=== PATIENT | male | born 1935 | race Caucasian/White ===

== ENCOUNTER → 2018-01-04 07:37 | Outpatient (CLI) | payer MEDICARE, SELFPAY ==
[2017-11-01 22:44] VITALS: BP 202/86; BP 206/90; BP 206/91
[2017-11-03 05:56] VITALS: BP 170/76
[2017-12-30 13:07] VITALS: BP 140/64; BMI 29.1
[2018-01-04 10:39] LABS: Absolute Neutrophil Count 3.7 X10^3/uL (2.0-7.7); Basophil# 0.05 X10^3/uL; Basophil% 0.9 % (0-1); Eosinophil# 0.14 X10^3/uL; Eosinophils% 2.6 % (0-5); Hematocrit 34.6 % (40-54); Hemoglobin 10.5 g/dl (13.0-16.5); Lymphocyte % 16.7 % (19-41); Mean Corp Hgb Conc 30.3 g/gl (32-36); Mean Corpuscular Hgb 25.3 pg (27.0-32.0); Mean Corpuscular Volume 83.4 fL (80-94); Mean Platelet Vol. 9.6 fl (6.2-12.0); Monocyte# 0.55 X10^3/uL; Monocyte% 10.2 % (0-10); Neutrophil # 3.74 X10^3/uL (2.7-7.7); Neutrophil % 69.2 % (47-70); Platelet Count 142 K/mm3 (150-450); RBC Distribution Width CV 15.6 % (11.6-14.6); RBC Distribution Width SD 47.8 fl (35.1-43.9); Red Blood Count 4.15 M/mm3 (4.6-6.2); White Blood Count 5.4 K/mm3 (4.4-11.0)
[2018-01-04 10:40] LABS: POSITIVE COUNT NO; POSITIVE DIFFERENTIAL NO; POSITIVE MORPHOLOGY NO
[2018-01-04 10:57] LABS: Hemoglobin A1c 6.8 % (4.2-6.3)
[2018-01-04 11:05] LABS: AST(SGOT) 10 U/L (15-37); Alanine Aminotransfer ALT/SGPT 16 U/L (16-61); Albumin, Serum 3.4 g/dL (3.2-5.0); Alkaline Phosphatase 88 U/L (45-117); Anion Gap 8 (5-15); BUN 21 mg/dL (7-18); BUN/Creat Ratio 14.5 RATIO (10-20); Bilirubin, Direct 0.11 mg/dL (0.00-0.30); Calcium,Total 8.5 mg/dL (8.5-10.1); Chloride 105 mmol/L (98-107); Cholesterol 177 mg/dL (200); Creatinine, Serum 1.45 mg/dL (0.70-1.30); EST Glomerular Filtration Rate 50 mL/min (>60); Est Glom Filt Rate - Afr Amer 60 mL/min (>60); Globulin 3.9 g/dL (2.2-4.2); Glucose 140 mg/dL (74-106); High Density Lipoprotein 35 mg/dL; Potassium 3.8 mmol/L (3.5-5.1); Protein, Total 7.3 g/dL (6.4-8.2); Sodium Level 144 mmol/L (136-145); Triglycerides 180 mg/dL; Very Low Density Lipoprotein 36 mg/dL (5-40)
== END ==
PROVIDERS: Family Provider Family Medicine; PCP Family Medicine; Visit Provider Internal Medicine Cardiovascular Disease
DX: I50.32 Chronic diastolic (congestive) heart failure (principal); E11.9 Type 2 diabetes mellitus without complications; N18.3 Chronic kidney disease, stage 3 (moderate); Z98.890 Other specified postprocedural states
CPT/HCPCS: 36415; 80048; 80061; 80076; 83036; 85025

== ENCOUNTER → 2018-01-06 07:02 | Outpatient (CLI) | payer MEDICARE, SELFPAY ==
[2017-11-01 22:44] VITALS: BP 202/86; BP 206/90; BP 206/91
[2017-11-03 05:56] VITALS: BP 170/76
[2017-12-30 13:07] VITALS: BP 140/64; BMI 29.1
--- NOTE | 2018-01-06 10:13 | STRESSREP ---
Stress Test Report Date: 01/06/2018 Procedure: Pharmacologic (Regadenoson) evaluation Indications: Chest pain Consent: Per the patient Procedure: The patient underwent pharmacologic (Regadenoson) evaluation with a peak heart rate of 80 bpm (57% predicted maximal heart rate) with a peak blood pressure 160/90 mmHg. The baseline ECG demonstrated normal sinus rhythm. The peak pharmacologic ECG demonstrated no obvious ECG changes. There were no cardiac dysrhythmias pretest, during pharmacologic infusion, or recovery. There was no report of chest discomfort during pharmacologic infusion or recovery. Impression: 1. Pharmacologic (Regadenoson) evaluation 2. Peak pharmacologic ECG with no obvious ECG changes 3. Nuclear images pending Myocardial perfusion imaging study: Technique: The patient was injected with 9.8 mCi of technetium 99m Cardiolite and subsequently rest SPECT Cardiolite nuclear imaging was obtained on the horizontal long, vertical long, and short axis views. The patient underwent pharmacologic (Regadenoson) evaluation with a peak heart rate of 80 bpm (57% predicted maximal heart rate) with a peak blood pressure 160/90 mmHg the patient was injected with 32.6 mCi of technetium 99m Cardiolite and subsequently stress SPECT Cardiolite nuclear imaging was obtained in the horizontal long, vertical long, and short axis views. A gated Cardiolite study at peak stress was obtained. Interpretation: Rest and stress SPECT Cardiolite nuclear imaging status post realignment and normalization appears to demonstrate relative uniform tracer uptake myocardial perfusion appearing within normal limits. There is end systolic thickening and brightening. The gated Cardiolite study demonstrates myocardial thickening and inward wall motion. The reported LVEF is 60%. Impression: 1. Rest and stress SPECT Cardiolite nuclear imaging demonstrates the appearance of relative uniform tracer uptake and myocardial perfusion appearing within normal limits. 2. The gated Cardiolite study reports an LVEF of 60%. This note was generated with [employer] software. Every effort was made to ensure accuracy, however, computerized radio station operator mistakes may persist.
--- NOTE | 2018-01-06 10:17 | STRESSREP_ITS ---
Stress Test Report Date: 01/06/2018 Procedure: Pharmacologic (Regadenoson) evaluation Indications: Chest pain Consent: Per the patient Procedure: The patient underwent pharmacologic (Regadenoson) evaluation with a peak heart rate of 80 bpm (57% predicted maximal heart rate) with a peak blood pressure 160 /90 mmHg. The baseline ECG demonstrated normal sinus rhythm. The peak pharmacologic ECG demonstrated no obvious ECG changes. There were no cardiac dysrhythmias pretest, during pharmacologic infusion, or recovery. There was no report of chest discomfort during pharmacologic infusion or recovery. Impression: 1. Pharmacologic (Regadenoson) evaluation 2. Peak pharmacologic ECG with no obvious ECG changes 3. Nuclear images pending Myocardial perfusion imaging study: Technique: The patient was injected with 9.8 mCi of technetium 99m Cardiolite and subsequently rest SPECT Cardiolite nuclear imaging was obtained on the horizontal long, vertical long, and short axis views. The patient underwent pharmacologic (Regadenoson) evaluation with a peak heart rate of 80 bpm (57% predicted maximal heart rate) with a peak blood pressure 160/90 mmHg the patient was injected with 32.6 mCi of technetium 99m Cardiolite and subsequently stress SPECT Cardiolite nuclear imaging was obtained in the horizontal long, vertical long, and short axis views. A gated Cardiolite study at peak stress was obtained. Interpretation: Rest and stress SPECT Cardiolite nuclear imaging status post realignment and normalization appears to demonstrate relative uniform tracer uptake myocardial perfusion appearing within normal limits. There is end systolic thickening and brightening. The gated Cardiolite study demonstrates myocardial thickening and inward wall motion. The reported LVEF is 60%. Impression: 1. Rest and stress SPECT Cardiolite nuclear imaging demonstrates the appearance of relative uniform tracer uptake and myocardial perfusion appearing within normal limits. 2. The gated Cardiolite study reports an LVEF of 60%. This note was generated with [employer] software. Every effort was made to ensure accuracy, however, computerized mud mill tender mistakes may persist.
== END ==
PROVIDERS: Family Provider Family Medicine; PCP Family Medicine; Visit Provider Internal Medicine Cardiovascular Disease
DX: R07.9 Chest pain, unspecified (principal); I10 Essential (primary) hypertension; Z98.890 Other specified postprocedural states
CPT/HCPCS: 78452; 93017; A9500; A4216

== ENCOUNTER → 2018-03-30 12:09 | Outpatient (CLI) | payer MEDICARE, SELFPAY ==
[2018-03-30 14:26] LABS: Absolute Lymphocyte Count 0.87 X10^3/ul (0.83-4.51); Absolute Neutrophil Count 3.9 X10^3/uL (2.0-7.7); Basophil# 0.08 X10^3/uL; Basophil% 1.4 % (0-1); Eosinophil# 0.11 X10^3/uL; Hematocrit 34.3 % (40-54); Hemoglobin 10.7 g/dl (13.0-16.5); Lymphocyte # 0.87 X10^3/ul (4.0); Lymphocyte % 15.7 % (19-41); Mean Corp Hgb Conc 31.2 g/gl (32-36); Mean Corpuscular Hgb 25.8 pg (27.0-32.0); Mean Corpuscular Volume 82.7 fL (80-94); Mean Platelet Vol. 10.2 fl (6.2-12.0); Monocyte# 0.58 X10^3/uL; Monocyte% 10.5 % (0-10); Neutrophil # 3.88 X10^3/uL (2.7-7.7); Platelet Count 165 K/mm3 (150-450); RBC Distribution Width CV 16.7 % (11.6-14.6); RBC Distribution Width SD 50.1 fl (35.1-43.9); Red Blood Count 4.15 M/mm3 (4.6-6.2); White Blood Count 5.5 K/mm3 (4.4-11.0)
[2018-03-30 14:37] LABS: POSITIVE COUNT NO; POSITIVE DIFFERENTIAL NO; POSITIVE MORPHOLOGY NO
[2018-03-30 14:45] LABS: AST(SGOT) 16 U/L (15-37); Alanine Aminotransfer ALT/SGPT 16 U/L (16-61); Albumin, Serum 3.8 g/dL (3.2-5.0); Alkaline Phosphatase 80 U/L (45-117); Amylase 61 U/L (25-115); Bilirubin, Direct 0.13 mg/dL (0.00-0.30); Globulin 3.7 g/dL (2.2-4.2); Lipase 213 U/L (73-393); Protein, Total 7.5 g/dL (6.4-8.2)
== END ==
PROVIDERS: Family Medicine; Family Provider Family Medicine; PCP Family Medicine; Visit Provider Family Medicine
DX: R10.13 Epigastric pain (principal); R11.0 Nausea
CPT/HCPCS: 36415; 80076; 82150; 83690; 85025

== ENCOUNTER → 2018-04-01 07:56 | Outpatient (CLI) | payer MEDICARE, SELFPAY ==
--- NOTE | 2018-04-01 08:01 | US_ITS ---
STUDY: ABDOMINAL ULTRASOUND - RIGHT UPPER QUADRANT REASON FOR VISIT: Male, 82 years old. Epigastric pain, nausea TECHNIQUE: Ultrasound evaluation of the right upper quadrant was performed with real-time and static morris-scale imaging. TECHNICAL QUALITY: Limited. Examination limited by bowel gas. COMPARISON: Report from CT 08/06/2010 FINDINGS: Liver: The liver measures 16.6 cm. There is increased echogenicity consistent with fatty infiltration. The bile ducts are within normal limits. There is hepatic color flow. The direction of portal flow is hepatopetal. The liver has a slightly lobular contour. Gallbladder: The patient is status post cholecystectomy. Common Bile Duct (C.B.D.): The common bile duct measures 5.3 mm. Pancreas: The visualized portions of the pancreas are grossly unremarkable. There is normal echogenicity of the pancreas. There is no demonstrated pancreatic mass or cyst. Right Kidney: Normal size of the right kidney. The right kidney measures 10.5 x 4.8 x 5.3 cm. Normal renal cortex. The right cortex measures 1.1 cm. There are multiple renal cysts present on the right, the largest at the superior pole measuring 3.4 x 3.2 x 2.4 cm. Within the midpole, there is a 9 x 1.2 cm cyst, with a peripheral 7 mm calcification. US/Abdomen Limited IMPRESSION: Hepatic steatosis. The gallbladder has been removed. There are several right renal cysts, one of which appears to have a peripheral calcification. Studies limited due to bowel gas. Electronically Signed: Casey Ring DO at 11:35 EDT Tel , Service support ,
== END ==
PROVIDERS: Family Provider Family Medicine; PCP Family Medicine; Visit Provider Family Medicine
DX: R10.13 Epigastric pain (principal); R11.0 Nausea
CPT/HCPCS: 76705

== ENCOUNTER → 2018-06-22 08:15 | Outpatient (CLI) | payer MEDICARE, SELFPAY ==
[2018-06-22 10:05] LABS: Absolute Lymphocyte Count 0.93 X10^3/ul (0.83-4.51); Absolute Neutrophil Count 3.8 X10^3/uL (2.0-7.7); Basophil# 0.06 X10^3/uL; Basophil% 1.1 % (0-1); Eosinophil# 0.16 X10^3/uL; Eosinophils% 2.9 % (0-5); Hematocrit 33.7 % (40-54); Hemoglobin 10.6 g/dl (13.0-16.5); Lymphocyte # 0.93 X10^3/ul (4.0); Lymphocyte % 16.8 % (19-41); Mean Corp Hgb Conc 31.5 g/gl (32-36); Mean Corpuscular Hgb 25.3 pg (27.0-32.0); Mean Corpuscular Volume 80.4 fL (80-94); Mean Platelet Vol. 9.8 fl (6.2-12.0); Monocyte# 0.56 X10^3/uL; Monocyte% 10.1 % (0-10); Neutrophil # 3.81 X10^3/uL (2.7-7.7); Neutrophil % 68.7 % (47-70); Platelet Count 158 K/mm3 (150-450); RBC Distribution Width CV 16.9 % (11.6-14.6); RBC Distribution Width SD 48.6 fl (35.1-43.9); Red Blood Count 4.19 M/mm3 (4.6-6.2); White Blood Count 5.5 K/mm3 (4.4-11.0)
[2018-06-22 10:11] LABS: POSITIVE COUNT NO; POSITIVE DIFFERENTIAL NO; POSITIVE MORPHOLOGY NO
[2018-06-22 10:18] LABS: Anion Gap 7 (5-15); BUN 18 mg/dL (7-18); BUN/Creat Ratio 10.8 RATIO (10-20); Calcium,Total 8.6 mg/dL (8.5-10.1); Chloride 104 mmol/L (98-107); Creatinine, Serum 1.66 mg/dL (0.70-1.30); EST Glomerular Filtration Rate 42 mL/min (>60); Est Glom Filt Rate - Afr Amer 51 mL/min (>60); Glucose 120 mg/dL (74-106); Potassium 4.1 mmol/L (3.5-5.1); Sodium Level 143 mmol/L (136-145)
[2018-06-22 21:22] LABS: Hemoglobin A1c 7.5 % (4.2-6.3)
== END ==
PROVIDERS: Family Provider Family Medicine; PCP Family Medicine; Visit Provider Family Medicine
DX: I10 Essential (primary) hypertension (principal); E11.9 Type 2 diabetes mellitus without complications; I48.91 Unspecified atrial fibrillation
CPT/HCPCS: 36415; 80048; 83036; 85025

== ENCOUNTER → 2018-07-25 12:07 | Outpatient (CLI) | payer MEDICARE, SELFPAY ==
[2018-07-25 14:01] LABS: T4 Free Direct 1.23 ng/dL (0.76-1.46); Thyroid Stim Hormone (TSH) 1.69 uIU/mL (0.358-3.74)
== END ==
PROVIDERS: Family Provider Family Medicine; PCP Family Medicine; Visit Provider Physician Assistant Medical
DX: I50.32 Chronic diastolic (congestive) heart failure (principal)
CPT/HCPCS: 36415; 84439; 84443

== ENCOUNTER 2018-08-15 21:19 | Observation (INO) | payer MEDICARE, SELFPAY ==
[2018-08-15 21:21] VITALS: BP 187/82; PULSE 66; RESP 18; TEMP 36.8; O2SAT 97; BMI 28.5
--- NOTE | 2018-08-15 21:42 | CT_ITS ---
STUDY: CT ABDOMEN AND PELVIS WITH CONTRAST REASON FOR EXAM: Male, 82 years old. Right-sided abdominal pain. RADIATION DOSAGE (If Supplied By Facility): CTDIvol = ( 17.87 ) mGy, DLP = ( 1105.31 ) mGycm TECHNIQUE: Transaxial images were obtained from the dome of the diaphragm to the symphysis pubis without oral contrast. 100 ml of Isovue 300 contrast was administered. Sagittal and coronal images were reconstructed. Individualized dose optimization techniques were used for this CT. COMPARISON: None. FINDINGS: The visualized portions of the lung bases demonstrate right lower lobe infiltrate. There is small right pleural effusion. There is calcified granuloma in the right lower lobe. The visualized portions of the heart are within normal limits. Normal liver. There is non-visualization of the gallbladder, which may be secondary to either contraction or a prior cholecystectomy. There are multiple benign calcified granulomata of the spleen. Normal pancreas. Normal bilateral adrenal glands. There are few cysts in the right kidney, the largest is in the upper pole with mild peripheral calcifications measuring about 3.5 cm. There is no evidence of hydronephrosis. There is a small cyst in the left kidney. The stomach is somewhat distended. There is mild thickening of the gastric wall in the region of the gastric antrum. The small bowel loops are normal in caliber. There is fecal retention. There is diverticulosis of the colon but there is no evidence of acute diverticulitis. The appendix is visualized and appears normal. There is diffuse atherosclerotic calcification of the abdominal aorta, without a demonstrated aneurysm. Normal inferior vena cava. Normal retroperitoneum. There is thickening of the bladder wall probably due to underdistention. The prostate is enlarged. There are metallic densities in the prostate which could represent radiation seeds. There is a small right inguinal hernia containing fluid. There is small left inguinal hernia containing fat. There are diffuse degenerative changes of the visualized lumbar spine. CT/Abdomen/Pelvis W IV Cont ONLY IMPRESSION: 1. Mild right lower lobe infiltrate and small left pleural effusion. 2. Thickening of the gastric wall in the region of the gastric antrum. Gastritis is difficult to exclude. 3. Diverticulosis without evidence of acute diverticulitis. 4. No evidence of acute appendicitis. 5. Prominent prostate. Electronically Signed: Eduard Christian MD at 23:32 EDT Tel , Service support ,
[2018-08-15] MEDS: 0.9% Normal Saline 1,000 ML 1000 ML IV (21:59)
[2018-08-15] MEDS: Morphine 4 MG/ML Syringe IV (22:00)
[2018-08-15 22:22] LABS: Absolute Lymphocyte Count 0.99 X10^3/ul (0.83-4.51); Absolute Neutrophil Count 4.2 X10^3/uL (2.0-7.7); Basophil# 0.05 X10^3/uL; Basophil% 0.8 % (0-1); Eosinophil# 0.19 X10^3/uL; Eosinophils% 3.2 % (0-5); Hematocrit 33.2 % (40-54); Hemoglobin 10.5 g/dl (13.0-16.5); Lymphocyte # 0.99 X10^3/ul (4.0); Lymphocyte % 16.4 % (19-41); Mean Corp Hgb Conc 31.6 g/gl (32-36); Mean Corpuscular Hgb 25.1 pg (27.0-32.0); Mean Corpuscular Volume 79.4 fL (80-94); Mean Platelet Vol. 9.1 fl (6.2-12.0); Monocyte# 0.55 X10^3/uL; Monocyte% 9.1 % (0-10); Neutrophil # 4.23 X10^3/uL (2.7-7.7); Neutrophil % 70.3 % (47-70); POSITIVE COUNT NO; POSITIVE DIFFERENTIAL NO; POSITIVE MORPHOLOGY NO; Platelet Count 152 K/mm3 (150-450); RBC Distribution Width CV 18.1 % (11.6-14.6); RBC Distribution Width SD 52.6 fl (35.1-43.9); Red Blood Count 4.18 M/mm3 (4.6-6.2)
[2018-08-15 22:25] LABS: Mucous, Urine 0 SEEN /hpf (<or=2+)
[2018-08-15 22:27] LABS: Color, Urine Yellow (Yellow); Glucose, Dipstick Normal (Normal); Ketone-Dipstick Negative (Negative); Leukocyte Esterase-Dipstick 100 /ul (Negative); Nitrite-Dipstick Negative (Negative); Occult Blood-Urine 25 /ul (Negative); Protein-Dipstick 100 mg/dl (Negative); Urine Bilirubin Dipstick Negative (Negative); Urine Clarity Clear (Clear); Urine Urobilinogen Normal (Normal)
[2018-08-15 22:33] LABS: ALB/GLOB Ratio 0.9 RATIO (0.9-2.4); AST(SGOT) 14 U/L (15-37); Alanine Aminotransfer ALT/SGPT 16 U/L (16-61); Albumin, Serum 3.5 g/dL (3.2-5.0); Alkaline Phosphatase 82 U/L (45-117); Anion Gap 8 (5-15); BUN 24 mg/dL (7-18); Calcium,Total 8.3 mg/dL (8.5-10.1); Chloride 103 mmol/L (98-107); EST Glomerular Filtration Rate 48 mL/min (>60); Est Glom Filt Rate - Afr Amer 58 mL/min (>60); Estimated Creatinine Clearance 34.26 ml/min; Globulin 3.9 g/dL (2.2-4.2); Glucose 184 mg/dL (74-106); Lipase 132 U/L (73-393); Potassium 3.7 mmol/L (3.5-5.1); Protein, Total 7.4 g/dL (6.4-8.2); Sodium Level 139 mmol/L (136-145)
[2018-08-15 22:36] LABS: Red Blood Cells-Urine 5-10 SEEN /hpf (0-5); White Blood Cells 0-5 SEEN /hpf (0-5)
[2018-08-15 22:37] LABS: Bacteria RARE /hpf (None Seen); Squamous Epithelial Cells - UA 0-5 SEEN /hpf (0-5)
[2018-08-15 23:05] LABS: International Normalized Ratio 2.3; Prothrombin Time (Protime)PT. 25.2 SECONDS (11.7-14.9)
[2018-08-15 23:33] VITALS: BP 179/87; PULSE 65; RESP 18; O2SAT 96
--- NOTE | 2018-08-15 23:40 | RAD_ITS ---
STUDY: X-RAY CHEST REASON FOR EXAM: Male, 82 years old. Pneumonia TECHNIQUE: Single frontal view of the chest. COMPARISON: 06/10/2017, CT abdomen 08/15/2018 FINDINGS: Right basilar atelectasis and right pleural effusion. Left basilar atelectasis. Increasing prominence of the cardiac silhouette. Normal mediastinum and monalisa. Normal visualized pulmonary arteries. There is atherosclerotic tortuosity of the aortic arch and descending thoracic aorta. Normal visualized thoracic spine. Right shoulder arthroplasty. There is no demonstrated abnormality of the visualized soft tissue structures of the upper abdomen. RAD/Chest 1 View (Portable) IMPRESSION: Right basilar atelectasis and right pleural effusion. Left basilar atelectasis. Electronically Signed: Kip Leon MD at 0:04 EDT Tel , Service support ,
--- NOTE | 2018-08-15 23:57 | ED.VISSUMM ---
- ER Visit Summary Date of Service: 08/15/18 Chief Complaint: Abdominal pain History of Present Illness: The patient is a 82 M with right upper quadrant abdominal pain for the past 2 days. This came on gradually. The pain radiates to his back. He tried taking Mylanta but it does not seem to help. Associated with nausea but no vomiting or other GI symptoms. No shortness of breath or cough. No fevers. He never had this in the past. He has a history of atrial fibrillation and takes Coumadin. He also reports a history of diabetes and pleural effusion. He has a history of cholecystectomy. Physical Examination: Blood pressure 187/82. Otherwise vitals unremarkable. Afebrile. Alert and oriented. No acute distress. Heart regular rate and rhythm. Lungs clear bilaterally. Right upper quadrant tender to palpation with no guarding or rebound. Skin appears normal. Test Results: Hemoglobin 10.5, stable. Glucose 184, BUN 24, creatinine 1.50, stable. Hepatic panel and lipase normal. INR 2.3. Urinalysis shows elevated leukoesterase and red cells but is otherwise unremarkable. CT of his abdomen showed a right lower lobe infiltrate and a mild left pleural effusion. He has a thickened gastric wall, diverticulosis without diverticulitis, no sign of appendicitis, and a prominent prostate. Emergency Department Course and Treatment: Patient presents with right upper quadrant pain and nausea. I did check a CT and labs. He has a right lower lobe infiltrate. I suspect this is causing his symptoms. Chest x-ray is fairly unremarkable. Official read is pending. Patient treated with doxycycline. His curb 65 and port scores indicate moderate risk and recommend admission. Patient was discussed with the hospitalist will be admitted for further care. Treatment Plan: As above Disposition: Admit Impression: 1. Community acquired pneumonia This note was generated with [employer] dictation software. It may contain incorrect words, spelling, and punctuation that were not noted in review of the chart prior to signing ED Disposition - Plan for ED Patient: Chief Complaint: Abd Pain Referrals: Pedro Marie MD [Primary Care Provider] -
--- NOTE | 2018-08-16 00:03 | ED.DCSUM_ITS ---
- ER Visit Summary Date of Service: 08/15/18 Chief Complaint: Abdominal pain History of Present Illness: The patient is a 82 M with right upper quadrant abdominal pain for the past 2 days. This came on gradually. The pain radiates to his back. He tried taking Mylanta but it does not seem to help. Associated with nausea but no vomiting or other GI symptoms. No shortness of breath or cough. No fevers. He never had this in the past. He has a history of atrial fibrillation and takes Coumadin. He also reports a history of diabetes and pleural effusion. He has a history of cholecystectomy. Physical Examination: Blood pressure 187/82. Otherwise vitals unremarkable. Afebrile. Alert and oriented. No acute distress. Heart regular rate and rhythm. Lungs clear bilaterally. Right upper quadrant tender to palpation with no guarding or rebound. Skin appears normal. Test Results: Hemoglobin 10.5, stable. Glucose 184, BUN 24, creatinine 1.50, stable. Hepatic panel and lipase normal. INR 2.3. Urinalysis shows elevated leukoesterase and red cells but is otherwise unremarkable. CT of his abdomen showed a right lower lobe infiltrate and a mild left pleural effusion. He has a thickened gastric wall, diverticulosis without diverticulitis, no sign of appendicitis, and a prominent prostate. Emergency Department Course and Treatment: Patient presents with right upper quadrant pain and nausea. I did check a CT and labs. He has a right lower lobe infiltrate. I suspect this is causing his symptoms. Chest x-ray is fairly unremarkable. Official read is pending. Patient treated with doxycycline. His curb 65 and port scores indicate moderate risk and recommend admission. Patient was discussed with the hospitalist will be admitted for further care. Treatment Plan: As above Disposition: Admit Impression: 1. Community acquired pneumonia This note was generated with [employer] dictation software. It may contain incorrect words, spelling, and punctuation that were not noted in review of the chart prior to signing ED Disposition - Plan for ED Patient: Chief Complaint: Abd Pain Referrals: ePdro Marie MD [Primary Care Provider] -
--- NOTE | 2018-08-16 00:37 | PCM.HP.STD ---
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 (8) Hypertension Status: Chronic Qualifiers: (9) Chronic renal failure, stage 3 (moderate) Status: Chronic (10) History of anxiety disorder Status: Chronic (11) Generalized osteoarthritis Status: Chronic (12) History of gout Status: Chronic (13) Mild dementia Status: Chronic (14) Diabetes mellitus, type II Status: Chronic (15) Generalized weakness Status: Chronic (16) History of prostate cancer Status: Chronic Comment: Status post radiotherapy (17) PAF (paroxysmal atrial fibrillation) Status: Chronic History of Present Illness Date of Admission: 08/16/18 Chief Complaint: abdominal pain The patient is a 82 year old male patient who presented to the ER with right side abdominal pain for the past two days. CT scan is negative for acute abdominal findings however there is a right lower lobe pulmonary infiltrate. He had received morphine for his pain earlier which did relieve his pain. He will be admitted overnight for treatment of his pneumonia. Due to advanced age and having received morphine for his pain it was deemed reasonable to admit for observation and treatment of pneumonia. Past Medical History Past Medical History (Chronic Problems): Chronic Problems (Last Reviewed 04/04/18 @ 15:08 by Shahla Juan) Nonrheumatic mitral (valve) insufficiency (Chronic) Non-rheumatic tricuspid valve insufficiency (Chronic) Non-rheumatic aortic stenosis (Chronic) History of left heart catheterization (Chronic ~01/2014) 05/02/[address] Robertson [facility]; 01/29/[address] 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) Hypertension (Chronic) Chronic renal failure, stage 3 (moderate) (Chronic) History of anxiety disorder (Chronic) Generalized osteoarthritis (Chronic) History of gout (Chronic) Mild dementia (Chronic) Rheumatoid arthritis (Chronic) Diabetes mellitus, type II (Chronic) Generalized weakness (Chronic) History of prostate cancer (Chronic) Status post radiotherapy Anemia of chronic disease (Chronic) due to CRF and RA PAF (paroxysmal atrial fibrillation) (Chronic) Medical History: Medical History (Last Reviewed 04/04/18 @ 15:08 by Shahla Juan) Nonrheumatic mitral (valve) insufficiency (Chronic) I34.0 Non-rheumatic tricuspid valve insufficiency (Chronic) I36.1 Non-rheumatic aortic stenosis (Chronic) I35.0 Chronic diastolic (congestive) heart failure (Chronic) I50.32 History of pleural effusion (Chronic) Z87.09 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 (Chronic) 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) Z79.01 Hypertension (Chronic) I10 Chronic renal failure, stage 3 (moderate) (Chronic) N18.3 History of anxiety disorder (Chronic) Z86.59 Generalized osteoarthritis (Chronic) M15.9 History of gout (Chronic) Z87.39 Mild dementia (Chronic) F03.90 Rheumatoid arthritis (Chronic) M06.9 Diabetes mellitus, type II (Chronic) E11.9 History of prostate cancer (Chronic) Status post radiotherapy Anemia of chronic disease (Chronic) D63.8 due to CRF and RA PAF (paroxysmal atrial fibrillation) (Chronic) I48.0 Syncope and collapse R55 Allergies cimetidine HCl [From Tagamet] Allergy (Verified 08/15/18 21:21) Rash ciprofloxacin [From Cipro] Allergy (Verified 08/15/18 21:21) Rash amoxicillin trihydrate [From Augmentin] Adverse Reaction (Verified 08/15/18 21:21) Abd cramps/diarrhea cefdinir [From Omnicef] Adverse Reaction (Verified 08/15/18 21:21) Diarrhea indomethacin sodium [From Indocin] Adverse Reaction (Verified 08/15/18 21:21) Nausea memantine HCl [From Namenda] Adverse Reaction (Verified 08/15/18 21:21) dizziness potassium clavulanate [From Augmentin] Adverse Reaction (Verified 08/15/18 21:21) Abd cramps/diarrhea sitagliptin phosphate [From Januvia] Adverse Reaction (Verified 08/15/18 21:21) Nausea Home Medications: Ambulatory Orders Medication Instructions Recorded Cholecalciferol (Vitamin D3) 1,000 unit PO DAILY 12/25/13 [Vitamin D3] Aspirin [Aspirin, Baby] 81 mg PO QHS 11/17/14 Cyanocobalamin [Vitamin B12] 1,000 mcg PO DAILY@0800 11/17/14 Pantoprazole Sodium [Protonix] 40 mg PO DAILY 11/17/14 Dicyclomine HCl [Bentyl] 10 mg PO DAILY 03/15/17 Loratadine 10 mg PO DAILY PRN 03/15/17 Metformin HCl 500 mg PO BID 03/15/17 Lisinopril [Zestril] 40 mg PO DAILY #30 tab 03/16/17 amlodipine 5 mg tablet 5 mg PO QHS 12/30/17 magnesium oxide 400 mg tablet 400 mg PO DAILY 12/30/17 multivitamin tablet 1 tab PO QDAY 12/30/17 warfarin 2 mg tablet 2 mg PO .COMPLEX 12/30/17 warfarin 2 mg tablet 4 mg PO .COMPLEX 12/30/17 carvedilol 25 mg tablet 12.5 mg PO BID #180 tab 07/14/18 furosemide 40 mg tablet 20 mg PO DAILY tab 07/25/18 amiodarone 200 mg tablet 100 mg PO QHS #45 tab 08/04/18 Surgical History: Surgical History (Last Updated 07/25/18 @ 09:23 by Estelle Wilder) History of left heart catheterization (Chronic) Onset Date: ~01/2014 Z98.890 05/02/[address] Robertson [facility]; 01/29/[address] Porter at [facility]: coronaries angiographically normal, pulmonary htn by RV eval, EF at that time was 45-50% History of bilateral inguinal hernia repair Z98.890, Z87.19 History of cholecystectomy Onset Date: ~1989 Z90.49 History of left knee replacement Z96.652 History of right shoulder replacement Z96.611 History of tonsillectomy Z90.89 Surgical History: cholecystectomy, total knee arthroplasty Psychiatric History: No pertinent psych hx Smoking Status: Never smoker - *Family History Maternal Family History: Family History (Last Reviewed 07/25/18 @ 09:23 by Estelle Wilder) Father CAD (coronary artery disease) Myocardial infarction Brother Diabetes History Items: No pertinent history Paternal Family History: Family History (Last Reviewed 07/25/18 @ 09:23 by sEtelle Wilder) Father CAD (coronary artery disease) Myocardial infarction Brother Diabetes History Items: No pertinent history Review of Systems Constitutional: Denies: Chills, Fever, Weight Change HEENT: Denies: Head Aches, Sinus Congestion, Sinus Drainage Cardiovascular: Denies: Chest Pain, Palpitations Respiratory: Denies: Cough, Shortness of breath at rest, Sputum production Gastrointestinal: Reports: Abdominal Pain. Denies: Nausea, Vomiting Genitourinary: Denies: Dysuria Musculoskeletal: Denies: Joint Pain, Joint Tenderness Skin: Denies: Rash, Wounds Neurological: Denies: Numbness, Tingling, Focal weakness Psychiatric: Denies: Anxiety, Depression, Homicidal Ideations, Suicidal Ideations Hematologic/ Lymphatic: Denies: Easy Bruising, Easy Bleeding VTE Information - Inpt Only VTE Present on Admission: No VTE Mechan Device Prophylaxis: None VTE Pharm Prophylaxis ordered?: No Patient Problems: Active and Suspected Problems (Last Reviewed 04/04/18 @ 15:08 by Shahla Juan) Community acquired bacterial pneumonia (Acute) - Physical Exam General: Alert, Cooperative HEENT: Atraumatic, Normocephalic Neck: Supple, Negative Carotid Bruits Lungs: Clear to auscultation, Normal air movement Cardiovascular: Normal S1, Normal S2, No murmurs, Irregular Rate Abdomen: Bowel Sounds Present, Soft, Non Tender Extremities: No edema Skin: No rashes Musculoskeletal: No Tenderness to Palpation of Joints or Extremities Neurological: Neuro grossly intact Psych/Mental Status: Normal Affect, Appropriate Vital Signs Temp Pulse Resp BP Pulse Ox 98.3 F 65 18 179/87 H 96 08/15/18 21:21 08/15/18 23:33 08/15/18 23:33 08/15/18 23:33 08/15/18 23:33 Assessment/Plan All Active Problems (Last Reviewed 04/04/18 @ 15:08 by Shahla Juan) Community acquired bacterial pneumonia (Acute) Chest pain (Resolved) Dehydration (Resolved) Hypomagnesemia (Resolved) Plan - admit for observation to general medical floor - due to allergies will continue doxycycline initiated in the ER - continue routine home medications - hold further pain medications for now - if stable tomorrow patient can be released with PO antibiotic therapy Code Visit OBSV E&M: [id number] Initial observation care L2
--- NOTE | 2018-08-16 00:42 | HP.PCM_ITS ---
Problem List (1) Community acquired bacterial pneumonia Status: Acute (2) Nonrheumatic mitral (valve) insufficiency Status: Chronic (3) Non-rheumatic aortic stenosis Status: Chronic (4) Chronic diastolic (congestive) heart failure Status: Chronic (5) History of pleural effusion Status: Chronic (6) 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 Status: Chronic (7) meterman current use of anticoagulant Status: Chronic (8) Hypertension Status: Chronic Qualifiers: (9) Chronic renal failure, stage 3 (moderate) Status: Chronic (10) History of anxiety disorder Status: Chronic (11) Generalized osteoarthritis Status: Chronic (12) History of gout Status: Chronic (13) Mild dementia Status: Chronic (14) Diabetes mellitus, type II Status: Chronic (15) Generalized weakness Status: Chronic (16) History of prostate cancer Status: Chronic Comment: Status post radiotherapy (17) PAF (paroxysmal atrial fibrillation) Status: Chronic History of Present Illness Date of Admission: 08/16/18 Chief Complaint: abdominal pain The patient is a 82 year old male patient who presented to the ER with right side abdominal pain for the past two days. CT scan is negative for acute abdominal findings however there is a right lower lobe pulmonary infiltrate. He had received morphine for his pain earlier which did relieve his pain. He will be admitted overnight for treatment of his pneumonia. Due to advanced age and having received morphine for his pain it was deemed reasonable to admit for observation and treatment of pneumonia. Past Medical History Past Medical History (Chronic Problems): Chronic Problems (Last Reviewed 04/04/18 @ 15:08 by Shahla Juan) Nonrheumatic mitral (valve) insufficiency (Chronic) Non-rheumatic tricuspid valve insufficiency (Chronic) Non-rheumatic aortic stenosis (Chronic) History of left heart catheterization (Chronic ~01/2014) 05/02/[address] Robertson [facility]; 01/29/[address] Porter at [facility]: coronaries angiographically normal, pulmonary htn by RV eval, EF at that time was 45-50% Chronic diastolic (congestive) heart failure (Chronic) History of pleural effusion (Chronic) 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 (Chronic) meterman current use of 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) Hypertension (Chronic) Chronic renal failure, stage 3 (moderate) (Chronic) History of anxiety disorder (Chronic) Generalized osteoarthritis (Chronic) History of gout (Chronic) Mild dementia (Chronic) Rheumatoid arthritis (Chronic) Diabetes mellitus, type II (Chronic) Generalized weakness (Chronic) History of prostate cancer (Chronic) Status post radiotherapy Anemia of chronic disease (Chronic) due to CRF and RA PAF (paroxysmal atrial fibrillation) (Chronic) Medical History: Medical History (Last Reviewed 04/04/18 @ 15:08 by Shahla Juan) Nonrheumatic mitral (valve) insufficiency (Chronic) I34.0 Non-rheumatic tricuspid valve insufficiency (Chronic) I36.1 Non-rheumatic aortic stenosis (Chronic) I35.0 Chronic diastolic (congestive) heart failure (Chronic) I50.32 History of pleural effusion (Chronic) Z87.09 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 (Chronic) meterman current use of 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) Z79.01 Hypertension (Chronic) I10 Chronic renal failure, stage 3 (moderate) (Chronic) N18.3 History of anxiety disorder (Chronic) Z86.59 Generalized osteoarthritis (Chronic) M15.9 History of gout (Chronic) Z87.39 Mild dementia (Chronic) F03.90 Rheumatoid arthritis (Chronic) M06.9 Diabetes mellitus, type II (Chronic) E11.9 History of prostate cancer (Chronic) Status post radiotherapy Anemia of chronic disease (Chronic) D63.8 due to CRF and RA PAF (paroxysmal atrial fibrillation) (Chronic) I48.0 Syncope and collapse R55 Allergies cimetidine HCl [From Tagamet] Allergy (Verified 08/15/18 21:21) Rash ciprofloxacin [From Cipro] Allergy (Verified 08/15/18 21:21) Rash amoxicillin trihydrate [From Augmentin] Adverse Reaction (Verified 08/15/18 21: 21) Abd cramps/diarrhea cefdinir [From Omnicef] Adverse Reaction (Verified 08/15/18 21:21) Diarrhea indomethacin sodium [From Indocin] Adverse Reaction (Verified 08/15/18 21:21) Nausea memantine HCl [From Namenda] Adverse Reaction (Verified 08/15/18 21:21) dizziness potassium clavulanate [From Augmentin] Adverse Reaction (Verified 08/15/18 21:21 ) Abd cramps/diarrhea sitagliptin phosphate [From Januvia] Adverse Reaction (Verified 08/15/18 21:21) Nausea Home Medications: Ambulatory Orders Medication Instructions Recorded Cholecalciferol (Vitamin D3) 1,000 unit PO DAILY 12/25/13 [Vitamin D3] Aspirin [Aspirin, Baby] 81 mg PO QHS 11/17/14 Cyanocobalamin [Vitamin B12] 1,000 mcg PO DAILY@0800 11/17/14 Pantoprazole Sodium [Protonix] 40 mg PO DAILY 11/17/14 Dicyclomine HCl [Bentyl] 10 mg PO DAILY 03/15/17 Loratadine 10 mg PO DAILY PRN 03/15/17 Metformin HCl 500 mg PO BID 03/15/17 Lisinopril [Zestril] 40 mg PO DAILY #30 tab 03/16/17 amlodipine 5 mg tablet 5 mg PO QHS 12/30/17 magnesium oxide 400 mg tablet 400 mg PO DAILY 12/30/17 multivitamin tablet 1 tab PO QDAY 12/30/17 warfarin 2 mg tablet 2 mg PO .COMPLEX 12/30/17 warfarin 2 mg tablet 4 mg PO .COMPLEX 12/30/17 carvedilol 25 mg tablet 12.5 mg PO BID #180 tab 07/14/18 furosemide 40 mg tablet 20 mg PO DAILY tab 07/25/18 amiodarone 200 mg tablet 100 mg PO QHS #45 tab 08/04/18 Surgical History: Surgical History (Last Updated 07/25/18 @ 09:23 by Estelle Wilder) History of left heart catheterization (Chronic) Onset Date: ~01/2014 Z98.890 05/02/[address] Robertson [facility]; 01/29/[address] Porter at [facility]: coronaries angiographically normal, pulmonary htn by RV eval, EF at that time was 45-50% History of bilateral inguinal hernia repair Z98.890, Z87.19 History of cholecystectomy Onset Date: ~1989 Z90.49 History of left knee replacement Z96.652 History of right shoulder replacement Z96.611 History of tonsillectomy Z90.89 Surgical History: cholecystectomy, total knee arthroplasty Psychiatric History: No pertinent psych hx Smoking Status: Never smoker - *Family History Maternal Family History: Family History (Last Reviewed 07/25/18 @ 09:23 by Estelle Wilder) Father CAD (coronary artery disease) Myocardial infarction Brother Diabetes History Items: No pertinent history Paternal Family History: Family History (Last Reviewed 07/25/18 @ 09:23 by Estelle Wilder) Father CAD (coronary artery disease) Myocardial infarction Brother Diabetes History Items: No pertinent history Review of Systems Constitutional: Denies: Chills, Fever, Weight Change HEENT: Denies: Head Aches, Sinus Congestion, Sinus Drainage Cardiovascular: Denies: Chest Pain, Palpitations Respiratory: Denies: Cough, Shortness of breath at rest, Sputum production Gastrointestinal: Reports: Abdominal Pain. Denies: Nausea, Vomiting Genitourinary: Denies: Dysuria Musculoskeletal: Denies: Joint Pain, Joint Tenderness Skin: Denies: Rash, Wounds Neurological: Denies: Numbness, Tingling, Focal weakness Psychiatric: Denies: Anxiety, Depression, Homicidal Ideations, Suicidal Ideations Hematologic/ Lymphatic: Denies: Easy Bruising, Easy Bleeding VTE Information - Inpt Only VTE Present on Admission: No VTE Mechan Device Prophylaxis: None VTE Pharm Prophylaxis ordered?: No Patient Problems: Active and Suspected Problems (Last Reviewed 04/04/18 @ 15:08 by Shahla Juan) Community acquired bacterial pneumonia (Acute) - Physical Exam General: Alert, Cooperative HEENT: Atraumatic, Normocephalic Neck: Supple, Negative Carotid Bruits Lungs: Clear to auscultation, Normal air movement Cardiovascular: Normal S1, Normal S2, No murmurs, Irregular Rate Abdomen: Bowel Sounds Present, Soft, Non Tender Extremities: No edema Skin: No rashes Musculoskeletal: No Tenderness to Palpation of Joints or Extremities Neurological: Neuro grossly intact Psych/Mental Status: Normal Affect, Appropriate Vital Signs Temp Pulse Resp BP Pulse Ox 98.3 F 65 18 179/87 H 96 08/15/18 21:21 08/15/18 23:33 08/15/18 23:33 08/15/18 23:33 08/15/18 23:33 Assessment/Plan All Active Problems (Last Reviewed 04/04/18 @ 15:08 by Shahla Juan) Community acquired bacterial pneumonia (Acute) Chest pain (Resolved) Dehydration (Resolved) Hypomagnesemia (Resolved) Plan - admit for observation to general medical floor - due to allergies will continue doxycycline initiated in the ER - continue routine home medications - hold further pain medications for now - if stable tomorrow patient can be released with PO antibiotic therapy Code Visit OBSV E&M: 85008 Initial observation care L2
[2018-08-16 01:29] VITALS: BMI 29.0
[2018-08-16 01:38] VITALS: BP 155/80; PULSE 57; RESP 20; TEMP 37.1; O2SAT 97
[2018-08-16] MEDS: Multivitamins,Therapeutic Tablet 1 TABLET PO (08:49)
[2018-08-16] MEDS: Cyanocobalamin 500 MCG Tablet 1000 MCG PO (08:50)
[2018-08-16] MEDS: Dicyclomine 10 MG Capsule PO (08:50)
[2018-08-16 08:52] VITALS: BP 143/73; PULSE 60; RESP 18; TEMP 36.9; O2SAT 95
[2018-08-16] MEDS: Carvedilol 12.5 MG Tablet PO ×2 (10:54→21:55)
[2018-08-16] MEDS: Furosemide 20 MG Tablet PO (10:54)
[2018-08-16] MEDS: Pantoprazole Sodium 40 MG Tablet PO (10:54)
[2018-08-16] MEDS: Magnesium Oxide 400 MG Tablet PO (10:54)
[2018-08-16] MEDS: 0.9% NaCl Peripheral Flush Adult/Peds IV (10:55)
[2018-08-16] MEDS: Lisinopril 40 MG Tablet PO (10:55)
--- NOTE | 2018-08-16 12:15 | CASEMGMT ---
[facility] Face to Face with patient for initial transition planning/care coordination assessment. RN CM introduced self and role at [facility]. Patient sitting on edge of bed, alert and oriented. Patient willing to participate in assessment and is able to answer all questions appropriately. Care providers, pharmacy, and demographics verified. See link attached. Patient wishes to discharge home, denies need for home health at this time. Patient states he has no further needs or concerns at this time. CM to follow for discharge planning needs that may arise. Disposition Plan: Patient to discharge home with family support and follow-up plans in place. [place], RN, CM
[2018-08-16 15:38] VITALS: BP 155/90; PULSE 63; RESP 18; TEMP 36.6; O2SAT 96
[2018-08-16 16:21] LABS: Bacteria 0 SEEN /hpf (None Seen); Mucous, Urine 0 SEEN /hpf (<or=2+); Squamous Epithelial Cells - UA 0 SEEN /hpf (0-5); White Blood Cells 0 SEEN /hpf (0-5)
[2018-08-16 16:29] LABS: Color, Urine Yellow (Yellow); Glucose, Dipstick Normal (Normal); Ketone-Dipstick Negative (Negative); Leukocyte Esterase-Dipstick Negative /ul (Negative); Nitrite-Dipstick Negative (Negative); Occult Blood-Urine 25 /ul (Negative); Protein-Dipstick 100 mg/dl (Negative); Specific Gravity, Urine 1.005 (1.002-1.030); Urine Bilirubin Dipstick Negative (Negative); Urine Clarity Clear (Clear); Urine Urobilinogen Normal (Normal)
[2018-08-16 16:38] LABS: Red Blood Cells-Urine 0-5 SEEN /hpf (0-5)
--- NOTE | 2018-08-16 17:52 | PCM.PN.HOSP ---
Patient Problems: Active and Suspected Problems (Last Reviewed 04/04/18 @ 15:08 by hSahla Juan) Community acquired bacterial pneumonia (Acute) Subjective: Patient was seen and examined. Denied any fever or chills or SOB. Complains of increased frequency, BladderScan was 110. No dysuria Vitals/I&O's: Vital Signs Temp Pulse Resp BP Pulse Ox 97.9 F 63 18 155/90 H 96 08/16/18 15:38 08/16/18 15:38 08/16/18 15:38 08/16/18 15:38 08/16/18 15:38 Oxygen Delivery Method Room Air Weight: 79.1 kg Body Mass Index (BMI) 29.0 Intake and Output for Last 24 Hours 08/14/18 08/15/18 08/16/18 23:59 23:59 23:59 Intake Total 425 / 425 Output Total 800 / 800 Balance -375 / -375 General: Alert, Oriented x3, Cooperative, No apparent distress HEENT: Atraumatic, PERRLA, EOMI, Normocephalic Oral: Moist Mucosa Neck: Supple, No JVD, Negative Carotid Bruits Lungs: Clear to auscultation, Normal air movement Cardiovascular: Regular rate, Regular Rhythm, Normal S1, Normal S2, No murmurs Abdomen: Bowel Sounds Present, Soft, Non Tender, Non-Distended, No Hepato-splenomegaly Extremities: No edema Skin: No rashes, No breakdown Musculoskeletal: No Tenderness to Palpation of Joints or Extremities Lymphatic: No Cervical, Supraclavicular, or Inguinal Adenopathy Neurological: Cranial nerves II-XII grossly intact, Neuro grossly intact Psych/Mental Status: Normal Affect, Appropriate Laboratory Results 08/16/18 15:55: Urine Color Yellow, Urine Clarity Clear, Urine pH 7.0, Ur Specific [place] 1.005, Urine Protein 100 H, Urine Glucose (UA) Normal, Urine Ketones Negative, Urine Occult Blood 25 H, Urine Nitrite Negative, Urine Bilirubin Negative, Urine Urobilinogen Normal, Ur Leukocyte Esterase Negative, Urine RBC 0-5 SEEN, Urine WBC 0 SEEN, Ur Squamous Epith Cells 0 SEEN, Urine Bacteria 0 SEEN, Urine Mucus 0 SEEN Current Medications Amiodarone HCl (Cordarone) 100 mg PO QHS [facility] Amlodipine Besylate (Norvasc) 5 mg PO QHS [facility] Aspirin (Aspirin, Baby) 81 mg PO QHS [facility] Carvedilol (Coreg) 12.5 mg PO BID [facility] Last Admin: 08/16/18 10:54 Dose: 12.5 mg Cholecalciferol (Vitamin D) 1,000 unit PO DAILY [facility] Last Admin: 08/16/18 10:55 Dose: 1,000 unit Cyanocobalamin (Vitamin B12) 1,000 mcg PO DAILY@0800 [facility] Last Admin: 08/16/18 08:50 Dose: 1,000 mcg Dicyclomine HCl (Bentyl) 10 mg PO DAILY [facility] Last Admin: 08/16/18 08:50 Dose: 10 mg Furosemide (Lasix) 20 mg PO DAILY [facility] Last Admin: 08/16/18 10:54 Dose: 20 mg Azithromycin 500 mg/ Dextrose 255 mls @ 250 mls/hr IV Q24 [facility] Ceftriaxone Sodium (Rocephin) 1 gm in 50 mls @ 100 mls/hr IV Q24 [facility] Lisinopril (Zestril) 40 mg PO DAILY [facility] Last Admin: 08/16/18 10:55 Dose: 40 mg Loratadine (Claritin) 10 mg PO DAILY PRN PRN PRN Reason: CONGESTION Magnesium Hydroxide (Milk Of Magnesia) 30 ml PO DAILY PRN PRN PRN Reason: Constipation Magnesium Oxide (Mag-Ox 400) 400 mg PO DAILY [facility] Last Admin: 08/16/18 10:54 Dose: 400 mg Metformin HCl (Glucophage) 500 mg PO BIDCM [facility] Last Admin: 08/16/18 17:46 Dose: 500 mg Multivitamins (Multivitamin) 1 tablet PO DAILY@0800 [facility] Last Admin: 08/16/18 08:49 Dose: 1 tablet Pantoprazole Sodium (Protonix) 40 mg PO DAILY [facility] Last Admin: 08/16/18 10:54 Dose: 40 mg Sodium Chloride () 5 - 30 ml IV UD PRN PRN Reason: SALINE FLUSH Last Admin: 08/16/18 10:55 Dose: 10 ml Warfarin Sodium (Coumadin (Pbkc)) 2 mg PO MoTh@1700 [facility] Warfarin Sodium (Coumadin (Pbkc)) 4 mg PO SuTuWeFrSa@1700 [facility] Last Admin: 08/16/18 17:47 Dose: 4 mg Medical Necessity - Tobacco Use Smoking Status: Never smoker Assessment/Plan All Active Problems (Last Reviewed 05/07/18 @ 15:08 by Shahla Juan) Community acquired bacterial pneumonia (Acute) Chest pain (Resolved) Dehydration (Resolved) Hypomagnesemia (Resolved) 82-year-old male with past medical history of multiple comorbidities including hypertension, CKD, dementia, type II DM, history of prostate cancer who comes in complains of abdominal pain and was found to have right lower lobe pneumonia on CT scan. 1. Acute community-acquired pneumonia, patient was managed on doxycycline for reported allergy to penicillin but apparently allergy is described rather as diarrhea, switched to ceftriaxone and azithromycin 1 more day and possible discharge tomorrow 2. Increased frequency, no urinary retention from bladder scan, admitting UA was not suggestive of UTI, repeat UA is not suggestive, will ask for urine culture 3. Hypertension, controlled, continue home medication 4. Type II DM, sugars are fairly controlled, on metformin 5. CKD stage 3, patient's baseline is around 1.5-1.6 , will trend blood work in a.m. 6. History of prostate cancer, reported in remission 7. Chronic medical problems including anxiety disorder, valvular heart disease, paroxysmal atrial fibrillation, pulmonary hypertension are stable 8. DVT prophylaxis - on Coumadin; INR 2.3 Code Visit Inpatient E&M: 55077 Subs Hosp L2
--- NOTE | 2018-08-16 17:57 | PN_ITS ---
Patient Problems: Active and Suspected Problems (Last Reviewed 04/04/18 @ 15:08 by Shahla Juan) Community acquired bacterial pneumonia (Acute) Subjective: Patient was seen and examined. Denied any fever or chills or SOB. Complains of increased frequency, BladderScan was 110. No dysuria Vitals/I&O's: Vital Signs Temp Pulse Resp BP Pulse Ox 97.9 F 63 18 155/90 H 96 08/16/18 15:38 08/16/18 15:38 08/16/18 15:38 08/16/18 15:38 08/16/18 15:38 Oxygen Delivery Method Room Air Weight: 79.1 kg Body Mass Index (BMI) 29.0 Intake and Output for Last 24 Hours 08/14/18 08/15/18 08/16/18 23:59 23:59 23:59 Intake Total 425 / 425 Output Total 800 / 800 Balance -375 / -375 General: Alert, Oriented x3, Cooperative, No apparent distress HEENT: Atraumatic, PERRLA, EOMI, Normocephalic Oral: Moist Mucosa Neck: Supple, No JVD, Negative Carotid Bruits Lungs: Clear to auscultation, Normal air movement Cardiovascular: Regular rate, Regular Rhythm, Normal S1, Normal S2, No murmurs Abdomen: Bowel Sounds Present, Soft, Non Tender, Non-Distended, No Hepato- splenomegaly Extremities: No edema Skin: No rashes, No breakdown Musculoskeletal: No Tenderness to Palpation of Joints or Extremities Lymphatic: No Cervical, Supraclavicular, or Inguinal Adenopathy Neurological: Cranial nerves II-XII grossly intact, Neuro grossly intact Psych/Mental Status: Normal Affect, Appropriate Laboratory Results 08/16/18 15:55: Urine Color Yellow, Urine Clarity Clear, Urine pH 7.0, Ur Specific [place] 1.005, Urine Protein 100 H, Urine Glucose (UA) Normal, Urine Ketones Negative, Urine Occult Blood 25 H, Urine Nitrite Negative, Urine Bilirubin Negative, Urine Urobilinogen Normal, Ur Leukocyte Esterase Negative, Urine RBC 0-5 SEEN, Urine WBC 0 SEEN, Ur Squamous Epith Cells 0 SEEN, Urine Bacteria 0 SEEN, Urine Mucus 0 SEEN Current Medications Amiodarone HCl (Cordarone) 100 mg PO QHS [facility] Amlodipine Besylate (Norvasc) 5 mg PO QHS [facility] Aspirin (Aspirin, Baby) 81 mg PO QHS [facility] Carvedilol (Coreg) 12.5 mg PO BID [facility] Last Admin: 08/16/18 10:54 Dose: 12.5 mg Cholecalciferol (Vitamin D) 1,000 unit PO DAILY [facility] Last Admin: 08/16/18 10:55 Dose: 1,000 unit Cyanocobalamin (Vitamin B12) 1,000 mcg PO DAILY@0800 [facility] Last Admin: 08/16/18 08:50 Dose: 1,000 mcg Dicyclomine HCl (Bentyl) 10 mg PO DAILY [facility] Last Admin: 08/16/18 08:50 Dose: 10 mg Furosemide (Lasix) 20 mg PO DAILY [facility] Last Admin: 08/16/18 10:54 Dose: 20 mg Azithromycin 500 mg/ Dextrose 255 mls @ 250 mls/hr IV Q24 [facility] Ceftriaxone Sodium (Rocephin) 1 gm in 50 mls @ 100 mls/hr IV Q24 [facility] Lisinopril (Zestril) 40 mg PO DAILY [facility] Last Admin: 08/16/18 10:55 Dose: 40 mg Loratadine (Claritin) 10 mg PO DAILY PRN PRN PRN Reason: CONGESTION Magnesium Hydroxide (Milk Of Magnesia) 30 ml PO DAILY PRN PRN PRN Reason: Constipation Magnesium Oxide (Mag-Ox 400) 400 mg PO DAILY [facility] Last Admin: 08/16/18 10:54 Dose: 400 mg Metformin HCl (Glucophage) 500 mg PO BIDCM [facility] Last Admin: 08/16/18 17:46 Dose: 500 mg Multivitamins (Multivitamin) 1 tablet PO DAILY@0800 [facility] Last Admin: 08/16/18 08:49 Dose: 1 tablet Pantoprazole Sodium (Protonix) 40 mg PO DAILY [facility] Last Admin: 08/16/18 10:54 Dose: 40 mg Sodium Chloride () 5 - 30 ml IV UD PRN PRN Reason: SALINE FLUSH Last Admin: 08/16/18 10:55 Dose: 10 ml Warfarin Sodium (Coumadin (Pbkc)) 2 mg PO MoTh@1700 [facility] Warfarin Sodium (Coumadin (Pbkc)) 4 mg PO SuTuWeFrSa@1700 [facility] Last Admin: 08/16/18 17:47 Dose: 4 mg Medical Necessity - Tobacco Use Smoking Status: Never smoker Assessment/Plan All Active Problems (Last Reviewed 05/07/18 @ 15:08 by Shahla Juan) Community acquired bacterial pneumonia (Acute) Chest pain (Resolved) Dehydration (Resolved) Hypomagnesemia (Resolved) 82-year-old male with past medical history of multiple comorbidities including hypertension, CKD, dementia, type II DM, history of prostate cancer who comes in complains of abdominal pain and was found to have right lower lobe pneumonia on CT scan. 1. Acute community-acquired pneumonia, patient was managed on doxycycline for reported allergy to penicillin but apparently allergy is described rather as diarrhea, switched to ceftriaxone and azithromycin 1 more day and possible discharge tomorrow 2. Increased frequency, no urinary retention from bladder scan, admitting UA was not suggestive of UTI, repeat UA is not suggestive, will ask for urine culture 3. Hypertension, controlled, continue home medication 4. Type II DM, sugars are fairly controlled, on metformin 5. CKD stage 3, patient's baseline is around 1.5-1.6 , will trend blood work in a.m. 6. History of prostate cancer, reported in remission 7. Chronic medical problems including anxiety disorder, valvular heart disease , paroxysmal atrial fibrillation, pulmonary hypertension are stable 8. DVT prophylaxis - on Coumadin; INR 2.3 Code Visit Inpatient E&M: 15252 Subs Hosp L2
[2018-08-16 21:00] VITALS: RESP 16
[2018-08-16] MEDS: amLODIPine 5 MG Tablet PO (21:55)
[2018-08-16] MEDS: Aspirin 81 MG TAB.CHEW PO (21:57)
[2018-08-16] MEDS: Amiodarone 200 MG Tablet 100 MG PO (21:57)
[2018-08-16 22:03] VITALS: BP 175/87; PULSE 73; RESP 16; TEMP 36.8; O2SAT 99
[2018-08-17 03:09] VITALS: BP 154/64; BP 171/74; PULSE 66; RESP 16; TEMP 37.1; O2SAT 98
[2018-08-17 06:54] LABS: International Normalized Ratio 2.5; Prothrombin Time (Protime)PT. 26.8 SECONDS (11.7-14.9)
[2018-08-17 07:11] LABS: Anion Gap 10 (5-15); BUN 20 mg/dL (7-18); BUN/Creat Ratio 15.7 RATIO (10-20); Calcium,Total 8.4 mg/dL (8.5-10.1); Chloride 102 mmol/L (98-107); Creatinine, Serum 1.27 mg/dL (0.70-1.30); EST Glomerular Filtration Rate 58 mL/min (>60); Est Glom Filt Rate - Afr Amer 70 mL/min (>60); Estimated Creatinine Clearance 39.01 ml/min; Glucose 121 mg/dL (74-106); Potassium 3.5 mmol/L (3.5-5.1); Sodium Level 141 mmol/L (136-145)
[2018-08-17 07:32] VITALS: BP 172/85; PULSE 69; RESP 18; TEMP 36.9; O2SAT 98
[2018-08-17] MEDS: Multivitamins,Therapeutic Tablet 1 TABLET PO (07:37)
[2018-08-17] MEDS: Lisinopril 40 MG Tablet PO (07:38)
[2018-08-17] MEDS: Carvedilol 12.5 MG Tablet PO (07:38)
[2018-08-17] MEDS: Cyanocobalamin 500 MCG Tablet 1000 MCG PO (07:38)
[2018-08-17 07:46] LABS: Absolute Lymphocyte Count 0.91 X10^3/ul (0.83-4.51); Absolute Neutrophil Count 4.9 X10^3/uL (2.0-7.7); Basophil# 0.04 X10^3/uL; Basophil% 0.6 % (0-1); Eosinophil# 0.16 X10^3/uL; Eosinophils% 2.4 % (0-5); Hematocrit 34.1 % (40-54); Lymphocyte # 0.91 X10^3/ul (4.0); Lymphocyte % 13.7 % (19-41); Mean Corp Hgb Conc 32.3 g/gl (32-36); Mean Corpuscular Hgb 25.5 pg (27.0-32.0); Mean Corpuscular Volume 78.9 fL (80-94); Mean Platelet Vol. 9.4 fl (6.2-12.0); Neutrophil # 4.91 X10^3/uL (2.7-7.7); Neutrophil % 74.1 % (47-70); Platelet Count 149 K/mm3 (150-450); RBC Distribution Width CV 17.9 % (11.6-14.6); RBC Distribution Width SD 51.4 fl (35.1-43.9); Red Blood Count 4.32 M/mm3 (4.6-6.2); White Blood Count 6.6 K/mm3 (4.4-11.0)
[2018-08-17 07:50] LABS: Differential Indicated SCAN CRITERIA MET; POSITIVE COUNT YES; POSITIVE DIFFERENTIAL NO; POSITIVE MORPHOLOGY YES
[2018-08-17] MEDS: Ceftriaxone 1 GM/50 ML BAG IV (09:15)
[2018-08-17] MEDS: 0.9% NaCl Peripheral Flush Adult/Peds IV (09:17)
[2018-08-17] MEDS: Dicyclomine 10 MG Capsule PO (09:20)
[2018-08-17] MEDS: Magnesium Oxide 400 MG Tablet PO (09:21)
[2018-08-17] MEDS: Pantoprazole Sodium 40 MG Tablet PO (09:21)
[2018-08-17] MEDS: Furosemide 20 MG Tablet PO (09:21)
[2018-08-17 09:22] VITALS: BP 150/75; PULSE 63
--- NOTE | 2018-08-17 11:37 | PCM.DC ---
- Discharge Diagnoses Current Active Problems: Current Active and Chronic Problems (Last Reviewed 04/04/18 @ 15:08 by Shahla Juan) Community acquired bacterial pneumonia (Acute) Reason(s) for Visit for Discharge Instructions: Abdominal pain, pneumonia You will use the following diet at home:: Regular Your food should be the consistency of: Regular Your liquids should be the consistency of: Regular/Thin Discharge Activity: Return to Normal Activity Additional Instructions: Take note of changes in your blood pressure medications. Continue to keep yourself hydrated. You will need to repeat your blood work in 1 week. You should follow-up as scheduled for monitoring of your INR with your primary care doctor. Continue to use the incentive spirometer. Allergies/Adverse Reactions: Allergies cimetidine HCl [From Tagamet] Allergy (Verified 08/15/18 21:21) Rash ciprofloxacin [From Cipro] Allergy (Verified 08/15/18 21:21) Rash amoxicillin trihydrate [From Augmentin] Adverse Reaction (Verified 08/15/18 21:21) Abd cramps/diarrhea cefdinir [From Omnicef] Adverse Reaction (Verified 08/15/18 21:21) Diarrhea indomethacin sodium [From Indocin] Adverse Reaction (Verified 08/15/18 21:21) Nausea memantine HCl [From Namenda] Adverse Reaction (Verified 08/15/18 21:21) dizziness potassium clavulanate [From Augmentin] Adverse Reaction (Verified 08/15/18 21:21) Abd cramps/diarrhea sitagliptin phosphate [From Januvia] Adverse Reaction (Verified 08/15/18 21:21) Nausea Medications to take at Discharge Cholecalciferol (Vitamin D3) [Vitamin D3] 1,000 unit PO DAILY 12/25/13 Aspirin [Aspirin, Baby] 81 mg PO QHS 11/17/14 Cyanocobalamin [Vitamin B12] 1,000 mcg PO DAILY@0800 11/17/14 Pantoprazole Sodium [Protonix] 40 mg PO DAILY 11/17/14 Dicyclomine HCl [Bentyl] 10 mg PO DAILY 03/15/17 Loratadine 10 mg PO DAILY PRN 03/15/17 Metformin HCl 500 mg PO BID 03/15/17 Lisinopril [Zestril] 40 mg PO DAILY #30 tab 03/16/17 magnesium oxide 400 mg tablet 400 mg PO DAILY 12/30/17 multivitamin tablet 1 tab PO QDAY 12/30/17 warfarin 2 mg tablet 2 mg PO MOTH 12/30/17 warfarin 2 mg tablet 4 mg PO SUTUWEFRSA 12/30/17 carvedilol 25 mg tablet 12.5 mg PO BID #180 tab 07/14/18 furosemide 40 mg tablet 20 mg PO DAILY tab 07/25/18 amiodarone 200 mg tablet 100 mg PO QHS #45 tab 08/04/18 Amlodipine [Norvasc] 10 mg PO QHS #30 tab 08/17/18 Amoxicillin/Potassium Clav [Augmentin 875-125 Tablet] 1 ea PO BID #10 tab 08/17/18 The following prescriptions were given: Amlodipine [Norvasc] 10 mg PO QHS #30 tab Orders to be completed after discharge: Basic Metabolic Profile (BMP) Location: Laboratory Primary Care Physician: Pedro Marie MD [Primary Care Provider] - Please follow up with your Primary Care Physician in: within 2 weeks Test Results: Test results from this visit will be discussed in further detail at your follow-up appointment, if applicable. Proposed Discharge Date: 08/17/18
--- NOTE | 2018-08-17 11:47 | DCINST_ITS ---
- Discharge Diagnoses Current Active Problems: Current Active and Chronic Problems (Last Reviewed 04/04/18 @ 15:08 by Shahla Juan) Community acquired bacterial pneumonia (Acute) Reason(s) for Visit for Discharge Instructions: Abdominal pain, pneumonia You will use the following diet at home:: Regular Your food should be the consistency of: Regular Your liquids should be the consistency of: Regular/Thin Discharge Activity: Return to Normal Activity Additional Instructions: Take note of changes in your blood pressure medications. Continue to keep yourself hydrated. You will need to repeat your blood work in 1 week. You should follow-up as scheduled for monitoring of your INR with your primary care doctor. Continue to use the incentive spirometer. Allergies/Adverse Reactions: Allergies cimetidine HCl [From Tagamet] Allergy (Verified 08/15/18 21:21) Rash ciprofloxacin [From Cipro] Allergy (Verified 08/15/18 21:21) Rash amoxicillin trihydrate [From Augmentin] Adverse Reaction (Verified 08/15/18 21: 21) Abd cramps/diarrhea cefdinir [From Omnicef] Adverse Reaction (Verified 08/15/18 21:21) Diarrhea indomethacin sodium [From Indocin] Adverse Reaction (Verified 08/15/18 21:21) Nausea memantine HCl [From Namenda] Adverse Reaction (Verified 08/15/18 21:21) dizziness potassium clavulanate [From Augmentin] Adverse Reaction (Verified 08/15/18 21:21 ) Abd cramps/diarrhea sitagliptin phosphate [From Januvia] Adverse Reaction (Verified 08/15/18 21:21) Nausea Medications to take at Discharge Cholecalciferol (Vitamin D3) [Vitamin D3] 1,000 unit PO DAILY 12/25/13 Aspirin [Aspirin, Baby] 81 mg PO QHS 11/17/14 Cyanocobalamin [Vitamin B12] 1,000 mcg PO DAILY@0800 11/17/14 Pantoprazole Sodium [Protonix] 40 mg PO DAILY 11/17/14 Dicyclomine HCl [Bentyl] 10 mg PO DAILY 03/15/17 Loratadine 10 mg PO DAILY PRN 03/15/17 Metformin HCl 500 mg PO BID 03/15/17 Lisinopril [Zestril] 40 mg PO DAILY #30 tab 03/16/17 magnesium oxide 400 mg tablet 400 mg PO DAILY 12/30/17 multivitamin tablet 1 tab PO QDAY 12/30/17 warfarin 2 mg tablet 2 mg PO MOTH 12/30/17 warfarin 2 mg tablet 4 mg PO SUTUWEFRSA 12/30/17 carvedilol 25 mg tablet 12.5 mg PO BID #180 tab 07/14/18 furosemide 40 mg tablet 20 mg PO DAILY tab 07/25/18 amiodarone 200 mg tablet 100 mg PO QHS #45 tab 08/04/18 Amlodipine [Norvasc] 10 mg PO QHS #30 tab 08/17/18 Amoxicillin/Potassium Clav [Augmentin 875-125 Tablet] 1 ea PO BID #10 tab The following prescriptions were given: Amlodipine [Norvasc] 10 mg PO QHS #30 tab Orders to be completed after discharge: Basic Metabolic Profile (BMP) Location: Laboratory Primary Care Physician: Pedro Marie MD [Primary Care Provider] - Please follow up with your Primary Care Physician in: within 2 weeks Test Results: Test results from this visit will be discussed in further detail at your follow- up appointment, if applicable. Proposed Discharge Date: 08/17/18
--- NOTE | 2018-08-17 11:49 | PCM.DC.SUM ---
Discharge Date and Diagnosis Date of Admission: 08/16/18 Date of Discharge: 08/17/18 - Primary Discharge Diagnosis Active and Suspected Problems (Last Reviewed 04/04/18 @ 15:08 by Shahla Juan) Community acquired bacterial pneumonia (Acute) - Secondary Discharge Diagnosis Chronic Problems (Last Reviewed 04/04/18 @ 15:08 by Shahla Juan) Nonrheumatic mitral (valve) insufficiency (Chronic) Non-rheumatic tricuspid valve insufficiency (Chronic) Non-rheumatic aortic stenosis (Chronic) History of left heart catheterization (Chronic ~01/2014) 05/02/[address] Robertson [facility]; 01/29/[address] 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) Hypertension (Chronic) Chronic renal failure, stage 3 (moderate) (Chronic) History of anxiety disorder (Chronic) Generalized osteoarthritis (Chronic) History of gout (Chronic) Mild dementia (Chronic) Rheumatoid arthritis (Chronic) Diabetes mellitus, type II (Chronic) Generalized weakness (Chronic) History of prostate cancer (Chronic) Status post radiotherapy Anemia of chronic disease (Chronic) due to CRF and RA PAF (paroxysmal atrial fibrillation) (Chronic) Hospital Course and Treatment Imaging Results: Clinical Impression(s) from Imaging Studies Abdomen/Pelvis CT 08/15/18 21:42 IMPRESSION: 1. Mild right lower lobe infiltrate and small left pleural effusion. 2. Thickening of the gastric wall in the region of the gastric antrum. Gastritis is difficult to exclude. 3. Diverticulosis without evidence of acute diverticulitis. 4. No evidence of acute appendicitis. 5. Prominent prostate. Electronically Signed: Eduard Christian MD at 23:32 EDT Tel , Service support , Chest X-Ray 08/15/18 23:40 IMPRESSION: Right basilar atelectasis and right pleural effusion. Left basilar atelectasis. Electronically Signed: Kip Leon MD at 0:04 EDT Tel , Service support , None Operations: None Procedures: None Summary of Care Provided: 82-year-old male with past medical history of multiple comorbidities including hypertension, CKD, dementia, type II DM, history of prostate cancer who comes in complains of abdominal pain and was found to have right lower lobe pneumonia on CT scan. 1. Acute community-acquired pneumonia, initially managed on doxycycline because of reported allergy to penicillin which was later found to be [id number]. Patient was switched to ceftriaxone and azithromycin and monitored for 48 hours with improvement in his general condition. He was discharged home on Augmentin. He had complained of urinary frequency during the hospital stay, UA was not suggestive of UTI, bladder scan was negative, urine cultures were sent which are growing mixed gram-positive organisms, patient had no fever or leukocytosis. He was on ceftriaxone and eventually on Augmentin. He was asked to follow-up with his primary care doctor Rest of his chronic medical conditions including cognitive impairment, hypertension, paroxysmal atrial fibrillation were all stable during the hospital stay Discharge Diet: Low fat/ Low Cholesterol, 2000 mg Sodium Diet Discharge Activity: Return to Normal Activity Home Medications: Medications to take at Discharge Cholecalciferol (Vitamin D3) [Vitamin D3] 1,000 unit PO DAILY 12/25/13 Aspirin [Aspirin, Baby] 81 mg PO QHS 11/17/14 Cyanocobalamin [Vitamin B12] 1,000 mcg PO DAILY@0800 11/17/14 Pantoprazole Sodium [Protonix] 40 mg PO DAILY 11/17/14 Dicyclomine HCl [Bentyl] 10 mg PO DAILY 03/15/17 Loratadine 10 mg PO DAILY PRN 03/15/17 Metformin HCl 500 mg PO BID 03/15/17 Lisinopril [Zestril] 40 mg PO DAILY #30 tab 03/16/17 magnesium oxide 400 mg tablet 400 mg PO DAILY 12/30/17 multivitamin tablet 1 tab PO QDAY 12/30/17 warfarin 2 mg tablet 2 mg PO MOTH 12/30/17 warfarin 2 mg tablet 4 mg PO SUTUWEFRSA 12/30/17 carvedilol 25 mg tablet 12.5 mg PO BID #180 tab 07/14/18 furosemide 40 mg tablet 20 mg PO DAILY tab 07/25/18 amiodarone 200 mg tablet 100 mg PO QHS #45 tab 08/04/18 Amlodipine [Norvasc] 5 mg PO DAILY #30 tab 08/17/18 Amoxicillin/Potassium Clav [Augmentin 875-125 Tablet] 1 ea PO BID #10 tab 08/17/18 Following Prescrptions Were Given to Patient: Amlodipine [Norvasc] 5 mg PO DAILY #30 tab Amoxicillin/Potassium Clav [Augmentin 875-125 Tablet] 1 ea PO BID #10 tab Other Amb Orders: Basic Metabolic Profile (BMP) Location: Laboratory Primary Care Physician: Pedro Marie MD [Primary Care Provider] - Please follow up with your Primary Care Physician in: within 2 weeks Disposition: Home Minutes spent on discharge:: 40 Patient Condition:: Stable Medical Necessity - Tobacco Use Smoking Status: Never smoker Tobacco Use: Non-smoker Meaningful Use Info Meaningful Use Diagnoses (Choose all that apply): None applicable Code Visit Inpatient E&M: 29824 Disch Hosp
[2018-08-17] MEDS: Magnesium Hydroxide 30 ML UDC PO (12:07)
[2018-08-17 13:12] VITALS: BP 148/78; PULSE 78; RESP 18; TEMP 36.8; O2SAT 94
== END 2018-08-17 13:15 | disposition home or self-care (01) ==
LOC: ED 08-16 00:12 → MS3 08-16 00:24
PROVIDERS: Admitting Provider Family Medicine; Emergency Provider Emergency Medicine; Family Provider Family Medicine; PCP Family Medicine; Visit Provider Internal Medicine
DX: J15.9 Unspecified bacterial pneumonia (principal); E11.22 Type 2 diabetes mellitus with diabetic chronic kidney disease; I12.9 Hypertensive chronic kidney disease with stage 1 through stage 4 chronic kidney disease, or unspecified chronic kidney disease; N18.3 Chronic kidney disease, stage 3 (moderate); D63.1 Anemia in chronic kidney disease; I48.0 Paroxysmal atrial fibrillation; M06.9 Rheumatoid arthritis, unspecified; Z85.46 Personal history of malignant neoplasm of prostate; F03.90 Unspecified dementia, unspecified severity, without behavioral disturbance, psychotic disturbance, mood disturbance, and anxiety; M15.9 Polyosteoarthritis, unspecified; I27.20 Pulmonary hypertension, unspecified; Z79.899 Other long term (current) drug therapy; Z79.82 Long term (current) use of aspirin; Z79.01 Long term (current) use of anticoagulants; Z79.84 Long term (current) use of oral hypoglycemic drugs
CPT/HCPCS: 36415; 71045; 74177; 80048; 80053; 81001; 83690; 85025; 85610; 87040; 87086; 87088; 96361; 96365; 96366; 96367; 96375; 97802; 99218; 99282; J7030; J7040; Q9967; A4216; G0378

== ENCOUNTER → 2018-08-24 10:36 | Outpatient (CLI) | payer MEDICARE, SELFPAY ==
[2018-08-24 12:26] LABS: Anion Gap 6 (5-15); BUN 24 mg/dL (7-18); BUN/Creat Ratio 15.9 RATIO (10-20); Calcium,Total 8.5 mg/dL (8.5-10.1); Chloride 106 mmol/L (98-107); Creatinine, Serum 1.51 mg/dL (0.70-1.30); EST Glomerular Filtration Rate 47 mL/min (>60); Est Glom Filt Rate - Afr Amer 57 mL/min (>60); Glucose 118 mg/dL (74-106); Potassium 3.9 mmol/L (3.5-5.1); Sodium Level 141 mmol/L (136-145)
== END ==
PROVIDERS: Family Provider Family Medicine; PCP Family Medicine; Referring Provider Family Medicine; Visit Provider Internal Medicine
DX: N18.9 Chronic kidney disease, unspecified (principal); N17.9 Acute kidney failure, unspecified
CPT/HCPCS: 36415; 80048

== ENCOUNTER → 2018-09-09 08:50 | Outpatient (CLI) | payer MEDICARE, SELFPAY ==
[2018-09-09 09:39] LABS: Anion Gap 6 (5-15); BUN 22 mg/dL (7-18); BUN/Creat Ratio 15.4 RATIO (10-20); Calcium,Total 8.4 mg/dL (8.5-10.1); Chloride 104 mmol/L (98-107); Creatinine, Serum 1.43 mg/dL (0.70-1.30); EST Glomerular Filtration Rate 50 mL/min (>60); Est Glom Filt Rate - Afr Amer 61 mL/min (>60); Glucose 117 mg/dL (74-106); PSA,Total- Diagnostic 0.17 ng/mL (0.0-4.0); Potassium 3.8 mmol/L (3.5-5.1); Sodium Level 139 mmol/L (136-145)
== END ==
PROVIDERS: Family Medicine; Family Provider Family Medicine; PCP Family Medicine; Referring Provider Family Medicine; Visit Provider Family Medicine
DX: R35.0 Frequency of micturition (principal)
CPT/HCPCS: 36415; 80048; 84153

== ENCOUNTER → 2018-09-12 10:05 | Outpatient (CLI) | payer MEDICARE, SELFPAY ==
--- NOTE | 2018-09-12 10:08 | RAD_ITS ---
STUDY: X-RAY CHEST REASON FOR EXAM: Male, 82 years old. Pleural effusion, right. TECHNIQUE: PA and lateral chest COMPARISON: 08/15/2018 x-ray chest FINDINGS: Right shoulder arthroplasty. Generalized pulmonary hyperinflation and hyperlucency consistent with underlying COPD/emphysema. Mild blunting of the right costophrenic angle suspicious for small residual effusion, with right lung base atelectasis. No apparent effusion or significant atelectasis on the left. Normal cardiomediastinal silhouette, monalisa and pleural margins. No acute osseous or upper abdominal process. RAD/Chest PA and Lateral IMPRESSION: Small residual right lung base effusion with right lung base atelectasis. Electronically Signed: Tyrell Stacy, at 11:31 EDT Tel , Service support ,
== END ==
LOC: MTLAB 10:06 → MTRAD 10:07
PROVIDERS: Family Provider Family Medicine; PCP Family Medicine; Referring Provider Family Medicine; Visit Provider Family Medicine
DX: J90 Pleural effusion, not elsewhere classified (principal)
CPT/HCPCS: 71046

== ENCOUNTER → 2018-10-10 10:58 | Outpatient (CLI) | payer MEDICARE, SELFPAY ==
--- NOTE | 2018-10-10 11:02 | RAD_ITS ---
STUDY: X-RAY - RIGHT FOOT CLINICAL: Male, 82 years old. Right medial foot pain. No evidence of injury. TECHNIQUE: 3 view(s) of the foot. COMPARISON: None. FINDINGS: There is an enthesophyte involving the posterior superior calcaneus at the site of insertion of the Achilles tendon. Plantar spur. Questionable tiny avulsion fracture involving the medial aspect of the tarsal navicular bone. Normal metatarsi. There is degenerative arthrosis of the metatarsophalangeal joint of the hallux . Normal tibial and fibular sesamoid bones. Normal interphalangeal joint of the great toe. Normal phalanges of the great toe. Normal second through fifth metatarsophalangeal joints. Normal interphalangeal joints and phalanges of the lesser toes. Mild degree of soft tissue swelling. RAD/Foot min 3 Views IMPRESSION: Questionable avulsion fracture along the medial aspect of the tarsal navicular bone. Overlying soft tissue swelling. Electronically Signed: Justin Castro MD at 11:33 EST Tel [phone], Service support ,
== END ==
PROVIDERS: Family Provider Family Medicine; PCP Family Medicine; Referring Provider Family Medicine; Visit Provider Family Medicine
DX: M79.671 Pain in right foot (principal)
CPT/HCPCS: 73630

== ENCOUNTER → 2018-12-09 09:47 | Outpatient (CLI) | payer MEDICARE, SELFPAY ==
[2018-11-10 15:11] VITALS: BMI 29.1
[2018-12-09 11:30] LABS: Absolute Lymphocyte Count 0.94 X10^3/ul (0.83-4.51); Absolute Neutrophil Count 4.3 X10^3/uL (2.0-7.7); Basophil# 0.05 X10^3/uL; Basophil% 0.8 % (0-1); Eosinophil# 0.14 X10^3/uL; Eosinophils% 2.4 % (0-5); Hematocrit 32.1 % (40-54); Lymphocyte # 0.94 X10^3/ul (4.0); Lymphocyte % 15.9 % (19-41); Mean Corp Hgb Conc 31.2 g/gl (32-36); Mean Corpuscular Volume 80.3 fL (80-94); Mean Platelet Vol. 9.9 fl (6.2-12.0); Monocyte# 0.53 X10^3/uL; Monocyte% 8.9 % (0-10); Neutrophil # 4.26 X10^3/uL (2.7-7.7); Neutrophil % 71.8 % (47-70); Platelet Count 141 K/mm3 (150-450); RBC Distribution Width CV 17.4 % (11.6-14.6); RBC Distribution Width SD 51.1 fl (35.1-43.9); White Blood Count 5.9 K/mm3 (4.4-11.0)
[2018-12-09 11:32] LABS: POSITIVE COUNT NO; POSITIVE DIFFERENTIAL NO; POSITIVE MORPHOLOGY NO
[2018-12-09 11:43] LABS: Anion Gap 9 (5-15); BUN 27 mg/dL (7-18); BUN/Creat Ratio 16.9 RATIO (10-20); Calcium,Total 8.1 mg/dL (8.5-10.1); Chloride 102 mmol/L (98-107); EST Glomerular Filtration Rate 44 mL/min (>60); Est Glom Filt Rate - Afr Amer 53 mL/min (>60); Glucose 167 mg/dL (74-106); Potassium 3.6 mmol/L (3.5-5.1); Sodium Level 139 mmol/L (136-145)
== END ==
PROVIDERS: Family Provider Family Medicine; PCP Family Medicine; Referring Provider Family Medicine; Visit Provider Family Medicine
DX: I50.32 Chronic diastolic (congestive) heart failure (principal); N18.3 Chronic kidney disease, stage 3 (moderate)
CPT/HCPCS: 36415; 80048; 85025

== ENCOUNTER 2018-12-12 08:00 | Outpatient (RCR) | payer MEDICARE, SELFPAY ==
[2018-11-10 15:11] VITALS: BMI 29.1
--- NOTE | 2018-11-21 08:52 | HP.PTEVAL_ITS ---
Patient's Visit Information IVAN STANLEY is a 82 year old M referred to Physical Therapy by JOSE MIGUEL HERRERA with a diagnosis of vertigo. Date of Evaluation: 11/21/18 Physical Therapist: Josue Amor, LINDA, OCS, CSCS - Visit Plan Frequency: 1-2x /Week Duration: 2-4 Weeks Plan: 1-2x/week as needed. Check positional. I am suspicious of medication causing as he started meds around the same time. Not seeing obvious vestibular problems but patient willing to try the exercises adn they willc ommunicate with doctor RE: meds. - Subjective Findings: Has dementia says his who does the talking for him. Gets dizzy at times as he has to suddently hold counter. Has happened for 3-4 months insidious onset.He does not answer questions but she says it lasts a minute or two and then gone until next episode. Can happen sitting at table or standing at counter. Has cane and walker and uses them intermittently when he decides to. Had it this morning brushing his teeth. No falls that she knows of, has to hold on to things at times. No pain says he. On coumadin and other heart meds. Had AFIB and shocked it before. Basic aDLs are I. cookks and cleans. Spends day sitting and walking around house. - Objective Walks slow but I on firm flat surface, trasnfers I without UE. C/s aROM very limtied age appropriately, no pain. Romberg eo 30 adn ec 30. - B hallpike christian, - roll test. Oculomotor: convergence is slow L eye. - skew eye deviation. no nystagmus with gaze or head shake. pursuit and saccades are slow but asymptomatic. + L head thrust. VOR is slow but asymptomatic - Balance Scores Functional Gait Assessment Score: 23 % Disability: 23.3400 - Goals Goal 1:: abolish vertigo Goal Time Frame: 2-4 Weeks - Rehabilitation Potential Physical Therapy Diagnosis: Vertigo unknown etiology Rehabilitation Potential: Questionable - Anticipated Interventions Patient/Client Instruction: Educate patient on: Condition, Plan of Care Other: to diminish dizzyness. Comment: vestibular progression if helpful Other: to diminish vertigo. Thank you for the opportunity to evaluate your patient. For Medicare and Medicare HMO plans, please review the plan of care and approve it. It will need to be FAXED BACK to us at [phone] for Medicare purposes. For Medicare only, by signing this I certify the plan of care. Please let me know if there are questions or concerns regarding this plan of care. Physician Signat ure: Date:
--- NOTE | 2018-12-12 08:38 | HP.PTDCSUM ---
HP - PT D/C Summary It has been my pleasure to treat IVAN STANLEY under orders from [facility], for the diagnosis of vertigo for a total of 3 visit(s). Discharge Date: 12/12/18 Please see the following information for a summary of their discharge status. - Subjective Subjective: not seeing allot of difference. Sitting at supper table last night and felt lightheaded like he might pass out. Lasted 2-3 minutes. No spinning. No falls or LOB according to patient. says those lightheaded spells are 2-3x/day. No f/u with neuro. Will see family doctor on 12/25. No symptoms with exercises. Being treated for anemia with iron since Wednesday. - Overall Improvement % Improvement: 0 - Objective Objective/Function: Demonstrated ex perfectly in sitting without symptoms. FGA doing well, unable to create symtpoms with head movements or positions changes or eye ex today. - Goals Goal 1:: abolish vertigo Goal Progress: Not Progressing - Plan Plan: D/C, pt back to doctor(phone call) for other options. Drink plenty of water and montior anemia treatment for helpfulness with dizzyness. - D/C Information Discharge Comments: Pt not showing improvement and will contact doctor office regarding other options. Does not seem vestibular, may be blood pressure, anemia, medication related. If there are questions or concerns regarding this patient's physical therapy, please feel free to call me at [phone]. Thank you for the referral of this patient. Sincerely, Josue Amor, DPT, OCS, CSCS
== END 2018-12-12 19:00 | disposition home or self-care (01) ==
LOC: PT 08:00
PROVIDERS: Family Provider Family Medicine; PCP Family Medicine
DX: R42 Dizziness and giddiness (principal)
CPT/HCPCS: 97162; 97530

== ENCOUNTER 2018-12-20 10:29 | Inpatient (IN) | payer MEDICARE, SELFPAY ==
[2018-11-10 15:11] VITALS: BMI 29.1
[2018-12-20] VITALS (12 sets, daily range): BP systolic 93–127; BP diastolic 59–73; PULSE 69–87; RESP 17–18; TEMP 36.3–36.9; O2SAT 92–96; BMI 30.9; BMI 31.5; BMI 31.6
--- NOTE | 2018-12-20 10:43 | RAD_ITS ---
STUDY: X-RAY CHEST REASON FOR EXAM: Male, 83 years old. Diminished breath sounds. TECHNIQUE: Single AP portable view of the chest. COMPARISON: Comparison is made with prior study dated September 12, 2018. FINDINGS: EKG electrodes are seen. Small to moderate right pleural effusion with underlying infiltration and/or atelectasis. Increased markings at the left lung base suggestive of atelectasis. This is superimposed on a mild degree of CHF. There is moderate cardiac enlargement. Normal mediastinum and monalisa. Normal visualized pulmonary arteries. There is atherosclerotic calcification of the aortic arch with tortuosity. Normal visualized thoracic spine. Status post right reverse shoulder replacement. There is no demonstrated abnormality of the visualized soft tissue structures of the upper abdomen. RAD/Chest 1 View (Portable) IMPRESSION: Findings in keeping with a mild degree of CHF with bilateral pleural effusions worse on the right side with bibasilar atelectasis. Electronically Signed: Justin Castro MD at 11:12 EST Tel [phone], Service support ,
--- NOTE | 2018-12-20 10:43 | EKG12_ITS ---
Test Reason : SOB Blood Pressure : / mmHG Vent. Rate : 078 BPM Atrial Rate : 077 BPM P-R Int : 000 ms QRS Dur : 122 ms QT Int : 456 ms P-R-T Axes : 000 -30 077 degrees QTc Int : 519 ms Atrial fibrillation Left axis deviation Non-specific intra-ventricular conduction delay Abnormal ECG Confirmed by ROSEMARIE PEREZ, ABBIE ([id number]), production editor RANDELL TOMLIN ([id number]) on 12/23/2018 2:33:32 PM Referred By: Katlyn Holland Confirmed By:ABBIE HOUSTON MD
--- NOTE | 2018-12-20 10:54 | ED.VISSUMM ---
- ER Visit Summary Date of Service: 12/20/18 Chief Complaint: Dyspnea History of Present Illness: The patient is a 83 M who is hard of hearing and and has dementia. She is not a good informant. provided majority of the history. He acknowledges he is short of breath. states he normally is able to walk throughout the house without becoming short of breath. Now he is only able to walk 5 feet before becoming short of breath. He denies, fever, chills or night sweats. He does have orthopnea. He has history of H fibrillation and was cardioverted by Dr. Porter. He is on Coumadin. He has had problems with edema of the lower extremities over the past several weeks. His medications have been adjusted. There is no history of black or maroon stool. There is history of chronic anemia. There is history of congestive heart failure, type 2 diabetes, end-stage renal disease (stage III), paroxysmal atrial fibrillation, K acquired pneumonia, secondary pulmonary hypertension, osteoarthritis and history of nonrheumatic aortic stenosis, mitral insufficiency and tricuspid insufficiency. Physical Examination: Patient is hard of hearing. He answers questions with 1 or 2 words. He is not answering in 1-2 words because of respiratory distress. Conjunctive is slightly pink. Lungs reveal diminished breath sounds right side with rales bilaterally. Heart is irregularly irregular and monitor reveals atrial fibrillation with a ventricular response varying between 75 and 85. Abdomen slightly distended tympanitic. There is 2+ pitting edema below right and left knee. Difficult to assess pulse in lower extremities because of edema. There is stigmata of peripheral arterial disease. He moves all extremities. Sensations intact. Cranial 2 through 12 are intact. Difficult to assess affect. Difficult to assess thought content. Test Results: EKG reveals atrial fibrillation with a ventricular rate of 78. QRS duration is prolonged and indicates a nonspecific intraventricular conduction delay. [place] is to the left. QT duration is prolonged. Chest x-ray reveals elevated right hemidiaphragm, congestive heart failure and pleural effusion on the right. Difficult to assess if there is a pleural effusion on the left. H&H 9.9 and 31.9. BUN and creatinine are 37 and 2.16. Creatinine on August 17, 2018 was 1.27. Creatinine on September 09, 2018 was 1.43. Creatinine on December 09, 2018 was 1.6. INR is therapeutic at 2.2. Troponin is less than 0.015. Emergency Department Course and Treatment: To evaluate patient's presentation of dyspnea dyspnea on exertion we will obtain EKG, chest x-ray troponin and appropriate blood work. Need to evaluate for cardiac ischemia, anemia and congestive heart failure. Depending on etiology of his congestive heart failure treatment will defer. Blood pressure was 93/59. Review of prior records reveals systolic prior visits was 140-150. states machine overhauler is Dr. Porter. She does not recall when he was last cardioverted. Treatment Plan: Patient received 80 mg of Lasix. He was not treated with nitroglycerin for preload reduction or PEREZ inhibitor since he is hypotensive. Per old records systolic blood pressure varies between 140 and 150. Page was placed to machine overhauler. Dr. Bhargav Robertson is on-call for Dr. Gio Porter. After speaking with cardiology will contact hospitalist for admission. Case discussed with Dr. Robertson. He agrees with treatment plan. He will see patient once he goes to the floor. Disposition: PCU stepdown full admission plan for cardioversion Impression: 1. Hypotension 2. Lactic acidosis 3. Exacerbation of congestive heart failure with hypoxia 4. Acute renal insufficiency 5. Anemia nonspecific 6. History of hypertension 7. History of pulmonary hypertension, secondary 8. Atrial fibrillation with controlled ventricular rate This note was generated with Floodlight dictation software. It may contain incorrect words, spelling, and punctuation that were not noted in review of the chart prior to signing ED Disposition - Plan for ED Patient: Chief Complaint: Shortness of Breath Referrals: Pedro Marie MD [Primary Care Provider] -
[2018-12-20 10:55] LABS: Absolute Lymphocyte Count 0.65 X10^3/ul (0.83-4.51); Absolute Neutrophil Count 4.2 X10^3/uL (2.0-7.7); Basophil# 0.04 X10^3/uL; Basophil% 0.7 % (0-1); Eosinophil# 0.17 X10^3/uL; Hematocrit 31.9 % (40-54); Hemoglobin 9.9 g/dl (13.0-16.5); Lymphocyte # 0.65 X10^3/ul (4.0); Lymphocyte % 11.6 % (19-41); Mean Corpuscular Hgb 25.1 pg (27.0-32.0); Mean Platelet Vol. 9.7 fl (6.2-12.0); Monocyte# 0.54 X10^3/uL; Monocyte% 9.6 % (0-10); Neutrophil # 4.21 X10^3/uL (2.7-7.7); Neutrophil % 74.9 % (47-70); Platelet Count 136 K/mm3 (150-450); RBC Distribution Width CV 19.3 % (11.6-14.6); RBC Distribution Width SD 55.5 fl (35.1-43.9); Red Blood Count 3.94 M/mm3 (4.6-6.2); White Blood Count 5.6 K/mm3 (4.4-11.0)
[2018-12-20 10:58] LABS: POSITIVE COUNT NO; POSITIVE DIFFERENTIAL NO; POSITIVE MORPHOLOGY NO
[2018-12-20 10:59] LABS: International Normalized Ratio 2.2; Prothrombin Time (Protime)PT. 24.8 SECONDS (11.7-14.9)
[2018-12-20 11:07] LABS: Anion Gap 11 (5-15); BUN 37 mg/dL (7-18); BUN/Creat Ratio 17.1 RATIO (10-20); Calcium,Total 8.3 mg/dL (8.5-10.1); Chloride 103 mmol/L (98-107); Creatinine, Serum 2.16 mg/dL (0.70-1.30); EST Glomerular Filtration Rate 31 mL/min (>60); Est Glom Filt Rate - Afr Amer 38 mL/min (>60); Estimated Creatinine Clearance 22.54 ml/min; Glucose 145 mg/dL (74-106); Potassium 3.8 mmol/L (3.5-5.1); Sodium Level 140 mmol/L (136-145)
[2018-12-20 11:22] LABS: BNP,B-Type NATRIURETIC PEPTIDE 762.4 pg/mL (0-100)
[2018-12-20 11:24] LABS: Lactic Acid 2.1 mmol/L (0.4-2.0)
[2018-12-20] MEDS: Furosemide 100 MG/10 ML Vial 80 MG IV (11:26)
--- NOTE | 2018-12-20 11:57 | HP.PCM_ITS ---
History of Present Illness Date of Admission: 12/20/18 Chief Complaint: shortness of breath The patient is a 83 year old M with an extensive PMH as listed. He was admitted through the ED on 12/20/17 with a complaint of worsening shortness of breath and LE edema. Patient has a history of chronic systolic heart failure and used to be on one tablet of lasix daily. However, a couple of weeks ago, he noticed that his legs were getting more swollen and he was getting short of breath and could not fast in his belt. He therefore saw his PCP dose of Lasix was increased to 2 tablets. Symptoms resolved and so his PCP told him to go down to 1 tablet. However symptoms recurred again and he was told to take 1.5 tablets of the lasix. Symptoms resolved again and he went down to his one tablet. However, over the past few days, he has become more SOB, with associated LE edema, orthopnea and PND. therefore decided to bring him in to the ED. blood pressure was 93/59 in the ED subsequently came up to 127/73. Vitals were otherwise WNL. He was saturating 95% on 2 L of oxygen. Chest x-ray showed small to moderate right pleural effusion with underlying infiltration atelectasis and increased markings at the left lung base suggestive of atelectasis superimposed on a mild degree of CHF as well as moderate cardiac enlargement. EKG showed A. fib with no acute ST changes. Initial troponin was negative. He is being admitted to be managed for acute systolic CHF exacerbation and CARMEN [] Past Medical History Past Medical History (Chronic Problems): Chronic Problems (Last Reviewed 04/04/18 @ 15:08 by Shahla Juan) Nonrheumatic mitral (valve) insufficiency (Chronic) Non-rheumatic tricuspid valve insufficiency (Chronic) Non-rheumatic aortic stenosis (Chronic) History of left heart catheterization (Chronic ~01/2014) 05/02/[address] Robertson [facility]; 01/29/[address] 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) Hypertension (Chronic) Chronic renal failure, stage 3 (moderate) (Chronic) History of anxiety disorder (Chronic) Generalized osteoarthritis (Chronic) History of gout (Chronic) Mild dementia (Chronic) Rheumatoid arthritis (Chronic) Diabetes mellitus, type II (Chronic) Generalized weakness (Chronic) History of prostate cancer (Chronic) Status post radiotherapy Anemia of chronic disease (Chronic) due to CRF and RA PAF (paroxysmal atrial fibrillation) (Chronic) Medical History: Medical History (Last Reviewed 04/04/18 @ 15:08 by Shahla Juan) Nonrheumatic mitral (valve) insufficiency (Chronic) I34.0 Non-rheumatic tricuspid valve insufficiency (Chronic) I36.1 Non-rheumatic aortic stenosis (Chronic) I35.0 Chronic diastolic (congestive) heart failure (Chronic) I50.32 History of pleural effusion (Chronic) Z87.09 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 (Chronic) residential current use of 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) Z79.01 Hypertension (Chronic) I10 Chronic renal failure, stage 3 (moderate) (Chronic) N18.3 History of anxiety disorder (Chronic) Z86.59 Generalized osteoarthritis (Chronic) M15.9 History of gout (Chronic) Z87.39 Mild dementia (Chronic) F03.90 Rheumatoid arthritis (Chronic) M06.9 Diabetes mellitus, type II (Chronic) E11.9 History of prostate cancer (Chronic) Status post radiotherapy Anemia of chronic disease (Chronic) D63.8 due to CRF and RA PAF (paroxysmal atrial fibrillation) (Chronic) I48.0 Syncope and collapse R55 Allergies cimetidine HCl [From Tagamet] Allergy (Verified 12/20/18 11:36) Rash ciprofloxacin [From Cipro] Allergy (Verified 12/20/18 11:36) Rash amoxicillin trihydrate [From Augmentin] Adverse Reaction (Verified 12/20/18 11:36) Abd cramps/diarrhea cefdinir [From Omnicef] Adverse Reaction (Verified 12/20/18 11:36) Diarrhea indomethacin sodium [From Indocin] Adverse Reaction (Verified 12/20/18 11:36) Nausea memantine HCl [From Namenda] Adverse Reaction (Verified 12/20/18 11:36) dizziness potassium clavulanate [From Augmentin] Adverse Reaction (Verified 12/20/18 11:36) Abd cramps/diarrhea sitagliptin phosphate [From Januvia] Adverse Reaction (Verified 12/20/18 11:36) Nausea Home Medications: Ambulatory Orders Medication Instructions Recorded Cholecalciferol (Vitamin D3) 1,000 unit PO DAILY 12/25/13 [Vitamin D3] Aspirin [Aspirin, Baby] 81 mg PO QHS 11/17/14 Cyanocobalamin [Vitamin B12] 1,000 mcg PO DAILY@0800 11/17/14 Pantoprazole Sodium [Protonix] 40 mg PO DAILY 11/17/14 Dicyclomine HCl [Bentyl] 10 mg PO DINNER 03/15/17 Loratadine 10 mg PO DINNER 03/15/17 Metformin HCl 500 mg PO BIDCM 03/15/17 magnesium oxide 400 mg (241.3 mg 400 mg PO LUNCH 12/30/17 magnesium) tablet warfarin 2 mg tablet 2 mg PO SUTH 12/30/17 warfarin 2 mg tablet 4 mg PO MOTUWEFRSA 12/30/17 furosemide 40 mg tablet 60 mg PO DAILY tab 07/25/18 amiodarone 200 mg tablet 100 mg PO QHS #45 tab 08/04/18 Amlodipine [Norvasc] 5 mg PO QHS 12/20/18 Ascorbic Acid [Vitamin C] 1,000 mg PO DAILY 12/20/18 Carvedilol 12.5 mg PO BID 12/20/18 Galantamine HBr 8 mg PO DAILY 12/20/18 Lisinopril [Zestril] 40 mg PO LUNCH 12/20/18 Tamsulosin HCl [Flomax] 0.4 mg PO DAILY 12/20/18 Surgical History: Surgical History (Last Updated 07/25/18 @ 09:23 by Estelle Wilder) History of left heart catheterization (Chronic) Onset Date: ~01/2014 Z98.890 05/02/[address] Robertson [facility]; 01/29/[address] Porter at [facility]: coronaries angiographically normal, pulmonary htn by RV eval, EF at that time was 45-50% History of bilateral inguinal hernia repair Z98.890, Z87.19 History of cholecystectomy Onset Date: ~1989 Z90.49 History of left knee replacement Z96.652 History of right shoulder replacement Z96.611 History of tonsillectomy Z90.89 Surgical History: cholecystectomy, total knee arthroplasty Psychiatric History: No pertinent psych hx Lives: Spouse/ Significant Other Smoking Status: Never smoker Alcohol: None Drugs: None - *Family History Maternal Family History: Family History (Last Reviewed 07/25/18 @ 09:23 by Estelle Wilder) Father CAD (coronary artery disease) Myocardial infarction Brother Diabetes History Items: No pertinent history Paternal Family History: Family History (Last Reviewed 07/25/18 @ 09:23 by Estelle Wilder) Father CAD (coronary artery disease) Myocardial infarction Brother Diabetes History Items: No pertinent history Review of Systems Constitutional: Reports: Weight Change - gained ~ 10 pounds over last few days, according to his . Denies: Chills, Fever, Weakness HEENT: Denies: Head Aches, Sinus Congestion, Sinus Drainage Cardiovascular: Reports: Edema. Denies: Chest Pain, Chest Pressure, Palpitat ions Respiratory: Reports: Shortness of Breath, Shortness of breath at rest, Shortness of breath upon exertion. Denies: Cough, Sputum production Gastrointestinal: Denies: Abdominal Pain, Nausea, Vomiting Genitourinary: Denies: Dysuria Musculoskeletal: Denies: Joint Pain, Joint Tenderness Skin: Denies: Rash, Wounds Neurological: Denies: Numbness, Tingling, Focal weakness Psychiatric: Denies: Anxiety, Depression, Homicidal Ideations, Suicidal Ideations Hematologic/ Lymphatic: Denies: Easy Bruising, Easy Bleeding VTE Information - Inpt Only VTE Present on Admission: No VTE Pharm Prophylaxis ordered?: Yes - Physical Exam General: Alert, Cooperative, No apparent distress HEENT: Atraumatic, PERRLA, EOMI, Normocephalic Oral: Moist Mucosa Neck: Supple, No JVD, Negative Carotid Bruits Lungs: - - decreased breath sounds bibasally, no wheezing or crackles Cardiovascular: Regular rate, Regular Rhythm, Normal S1, Normal S2, No murmurs Abdomen: Bowel Sounds Present, Soft, Non Tender, Non-Distended, No Hepato- splenomegaly Extremities: - - bilateral LE pitting pedal edema Skin: No rashes, No breakdown Musculoskeletal: No Tenderness to Palpation of Joints or Extremities Lymphatic: No Cervical, Supraclavicular, or Inguinal Adenopathy Neurological: Cranial nerves II-XII grossly intact, Neuro grossly intact, Motor Exam 5/5 strength throughout Psych/Mental Status: Normal Affect, Appropriate, Alert and oriented to time, place, person, mood and affect Vital Signs Temp Pulse Resp BP Pulse Ox 97.6 F L 72 18 109/73 95 12/20/18 10:33 12/20/18 11:37 12/20/18 11:37 12/20/18 11:37 12/20/18 11:37 Oxygen Flow Rate (L/min) 2 Oxygen Delivery Method Nasal Cannula Weight: 186 lb 4.65 oz Body Mass Index (BMI) 30.9 Laboratory Tests Past 24 Hrs 12/20/18 12/20/18 12/20/18 10:35 10:35 10:35 WBC 5.6 RBC 3.94 L Hgb 9.9 L Hct 31.9 L MCV 81.0 MCH 25.1 L MCHC 31.0 L RDW 19.3 H RDW Differential 55.5 H Plt Count 136 L MPV 9.7 Immature Gran % (Auto) 0.200 Neut % (Auto) 74.9 H Lymph % (Auto) 11.6 L [place] % (Auto) 9.6 Eos % (Auto) 3.0 Baso % (Auto) 0.7 Absolute Neuts (auto) 4.2 Absolute Lymphs (auto) 0.65 L Total Counted Not Reportable PT 24.8 H INR 2.2 Sodium 140 Potassium 3.8 Chloride 103 Carbon Dioxide 26.0 Anion Gap 11 BUN 37 H Creatinine 2.16 H Estim Creat Clear Calc 22.54 Est GFR (MDRD) Af Amer 38 L Est GFR (MDRD) Non-Af 31 L BUN/Creatinine Ratio 17.1 Glucose 145 H Lactic Acid Calcium 8.3 L Troponin I < 0.015 B-Natriuretic Peptide 12/20/18 12/20/18 10:35 10:50 WBC RBC Hgb Hct MCV MCH MCHC RDW RDW Differential Plt Count MPV Immature Gran % (Auto) Neut % (Auto) Lymph % (Auto) [place] % (Auto) Eos % (Auto) Baso % (Auto) Absolute Neuts (auto) Absolute Lymphs (auto) Total Counted PT INR Sodium Potassium Chloride Carbon Dioxide Anion Gap BUN Creatinine Estim Creat Clear Calc Est GFR (MDRD) Af Amer Est GFR (MDRD) Non-Af BUN/Creatinine Ratio Glucose Lactic Acid 2.1 H Calcium Troponin I B-Natriuretic Peptide 762.4 H Diagnostic Data Chest X-Ray 12/20/18 10:43 IMPRESSION: Findings in keeping with a mild degree of CHF with bilateral pleural effusions worse on the right side with bibasilar atelectasis. Electronically Signed: Justin Castro MD at 11:12 EST Tel [phone], Service support , Assessment/Plan All Active Problems (Last Reviewed 04/04/18 @ 15:08 by Shahla Juan) Community acquired bacterial pneumonia (Acute) Chest pain (Resolved) Dehydration (Resolved) Hypomagnesemia (Resolved) 83-year-old male admitted with a complaint of shortness of breath, orthopnea, PND and lower extremity edema. 1. Acute on chronic diastolic heart failure * SOB worsening, with LE edema, orthopnea and PND * has been compliant with his lasix * initial tropnin negative, and BNP was 762.4 * CXR showed evidence of heart failure * admit to PCU with telemetry * cycle troponin * give IV lasix 40mg bid; will monitor Cr closely * 2D echo(08/12): EF of 60%, with impaired relaxation of LV * will order 2D echo * on carvedilol 2. CARMEN on CKD: * Cr is 2.16, baseline is ~ 1.5 * due to heart failure,cannot hydrate with IVF. * will trend Cr * will hold lisinopril * will check FeUrea * will check UA * 3. Lactic acidosis: lactic acid is 2. Likely due to CARMEN. WIll trend lactic acid 4. Chronic aFib: EKG showed Afib. on amiodarone and carvedilol. On coumadin. wi ll monitor INR. 5. Diabetes mellitus: will hold metformin o/a of CARMEN. ISS. Accuchecks ACHS DVT prophylaxis: on coumadin. INR is 2.2 Code status: Patient and counseled extensively about different types of CODE STATUS including full code, DNR CCA and DNR CCA. Patient elects to be full code. . Total [id number] time 16 minutes. Code Visit Inpatient E&M: 10820 Init Hosp L3 Procedures: 48972 Advncd Care Plan 30 Min
--- NOTE | 2018-12-20 13:27 | ECHOD_ITS ---
Reason For Study: CHF Procedure This was a 2D Doppler, Color Flow transthoracic echocardiogram. The study was technically difficult. Exam performed portable in patient room. Left Ventricle Normal LV size. Left ventricular systolic function is normal. The estimated ejection fraction is 60 %. Unable to assess diastolic dysfunction. No regional wall motion abnormalities noted. Right Ventricle Mildly dilated right ventricle. Normal systolic function. Atria The left atrium is mildly enlarged. The right atrium is mildly enlarged. No doppler evidence for ASD. Mitral Valve There is mild mitral annular calcification. Mild diffuse mitral valve thickening. Mild-Moderate (1- 2+) mitral valve insufficiency. Tricuspid Valve Normal tricuspid valve. Moderate (2+) tricuspid valve insufficiency. Right ventricular systolic pressure estimated to be 39 mmHg. Aortic Valve Trisinus/trileaflet aortic valve. Moderate diffuse aortic valve thickening. Moderate focal aortic valve calcification. Moderate to severe aortic valve stenosis. Pulmonic Valve The pulmonic valve is not well visualized. Great Vessels Normal sized aortic root. Pericardium/Pleural No pericardial effusion. MMode/2D Measurements & Calculations LVIDd: 4.9 cm IVSd: 0.97 cm LVOT diam: 2.1 cm LVIDs: 3.5 cm LVPWd: 1.2 cm LVOT area: 3.4 cm2 RVDd: 4.3 cm FS: 27.0 % Ao root diam: 3.0 cm LAV(MOD-bp): 80.9 ml LA A4 area: 23.4 cm2 LAV(MOD-bp) Indexed: 41.9 ml/m2 LAV(MOD-sp2): 82.3 ml LAV(MOD-sp4): 69.9 ml LA dimension(2D): 3.8 cm RA A4 area: 22.5 cm2 Doppler Measurements & Calculations MV E max karli: 125.7 cm/sec Ao V2 max: 293.6 cm/sec LV V1 max: 79.0 cm/sec Ao max P.5 mmHg LV V1 max P.5 mmHg Ao V2 mean: 222.8 cm/sec LV V1 mean P.6 mmHg Ao mean P.4 mmHg LV V1 mean: 60.4 cm/sec Ao V2 VTI: 68.9 cm LV V1 VTI: 18.0 cm SEVEN(I,D): 0.88 cm2 SEVEN(V,D): 0.91 cm2 SV(LVOT): 60.9 ml PA V2 max: 122.2 cm/sec TR max karli: 277.2 cm/sec TR max P.8 mmHg Interpretation Summary The study was technically difficult. Left ventricular systolic function is normal. The estimated ejection fraction is 60 %. Mildly dilated right ventricle. The left atrium is mildly enlarged. The right atrium is mildly enlarged. There is mild mitral annular calcification. Mild diffuse mitral valve thickening. Mild-Moderate (1-2+) mitral valve insufficiency. Moderate (2+) tricuspid valve insufficiency. Moderate to severe aortic valve stenosis. Right ventricular systolic pressure estimated to be 39 mmHg. Unable to assess diastolic dysfunction. Ordering Physician: Katlyn Holland Referring Physician: Katlyn Holland Performed By: Concha Valdez, RDCS, RVT
[2018-12-20 14:10] LABS: Bedside Glucose 103 mg/dL (70-110)
[2018-12-20 14:50] LABS: Reflex Lactate? Y
[2018-12-20 15:50] LABS: Lactic Acid 1.9 mmol/L (0.4-2.0)
[2018-12-20 16:56] LABS: Bedside Glucose 115 mg/dL (70-110)
--- NOTE | 2018-12-20 17:24 | PCM.CONS.C ---
Problem List (1) Atrial fibrillation Status: Acute Qualifiers: Atrial fibrillation type: paroxysmal Qualified Code(s): I48.0 - Paroxysmal atrial fibrillation (2) Chronic diastolic (congestive) heart failure Status: Acute (3) Valvular heart disease Status: Chronic (4) 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 Status: Chronic (5) Pleural effusion Status: Acute (6) Hypertension Status: Chronic Qualifiers: (7) Renal insufficiency Status: Acute Reason for Consult Date of Consultation: 12/20/18 History of Present Illness: The patient is a 83 year old white male with a past cardiovascular history which has included concerns of underlying paroxysmal atrial fibrillation, chronic diastolic mediated CHF, valvular heart disease with concerns of aortic valve stenosis and mitral valve regurgitation/tricuspid valve regurgitation, pleural effusion status post previous thoracentesis, pulmonary hypertension, essential hypertension, superimposed upon concerns of diabetes mellitus and dementia who is referred for evaluation of progressive shortness of breath/dyspnea and recurrent atrial fibrillation. The patient notes that recently he has been having progressive shortness of breath and dyspnea as well as increasing lower extremity peripheral pitting edema and weight gain. He has noted orthopnea and PND. He has noted a discomfort feeling in his chest. He has not noted recurrence of his atrial relation. There has been no near syncope or syncope. He reportedly has had altering doses of diuretics per his PCP which has helped but not lead to resolution of his ongoing issues. He states he continues to follow with his PCP for his anticoagulant therapy which his states has been therapeutic. Based upon his ongoing symptoms and concerns he presented to the emergency department this day for reevaluation. In the emergency department he was found to be short of breath and dyspneic. He was noted to have peripheral pitting edema of the lower extremities. He was found to be in atrial fibrillation. On radiologic findings he was noted to have a right-sided pleural effusion. He was treated medically with IV furosemide. He was placed in the PCU for further evaluation and care. [] Past Medical History Allergies/Adverse Reactions: Allergies cimetidine HCl [From Tagamet] Allergy (Verified 12/20/18 11:36) Rash ciprofloxacin [From Cipro] Allergy (Verified 12/20/18 11:36) Rash amoxicillin trihydrate [From Augmentin] Adverse Reaction (Verified 12/20/18 11:36) Abd cramps/diarrhea cefdinir [From Omnicef] Adverse Reaction (Verified 12/20/18 11:36) Diarrhea indomethacin sodium [From Indocin] Adverse Reaction (Verified 12/20/18 11:36) Nausea memantine HCl [From Namenda] Adverse Reaction (Verified 12/20/18 11:36) dizziness potassium clavulanate [From Augmentin] Adverse Reaction (Verified 12/20/18 11:36) Abd cramps/diarrhea sitagliptin phosphate [From Januvia] Adverse Reaction (Verified 12/20/18 11:36) Nausea Home Medications: Ambulatory Orders Medication Instructions Recorded Cholecalciferol (Vitamin D3) 1,000 unit PO DAILY 12/25/13 [Vitamin D3] Aspirin [Aspirin, Baby] 81 mg PO QHS 11/17/14 Cyanocobalamin [Vitamin B12] 1,000 mcg PO DAILY@0800 11/17/14 Pantoprazole Sodium [Protonix] 40 mg PO DAILY 11/17/14 Dicyclomine HCl [Bentyl] 10 mg PO DINNER 03/15/17 Loratadine 10 mg PO DINNER 03/15/17 Metformin HCl 500 mg PO BIDCM 03/15/17 magnesium oxide 400 mg (241.3 mg 400 mg PO LUNCH 12/30/17 magnesium) tablet warfarin 2 mg tablet 2 mg PO SUTH 12/30/17 warfarin 2 mg tablet 4 mg PO MOTUWEFRSA 12/30/17 furosemide 40 mg tablet 60 mg PO DAILY tab 07/25/18 amiodarone 200 mg tablet 100 mg PO QHS #45 tab 08/04/18 Amlodipine [Norvasc] 5 mg PO QHS 12/20/18 Ascorbic Acid [Vitamin C] 1,000 mg PO DAILY 12/20/18 Carvedilol 12.5 mg PO BID 12/20/18 Galantamine HBr 8 mg PO DAILY 12/20/18 Lisinopril [Zestril] 40 mg PO LUNCH 12/20/18 Tamsulosin HCl [Flomax] 0.4 mg PO DAILY 12/20/18 Past Medical History (Chronic Problems): Chronic Problems (Last Reviewed 04/04/18 @ 15:08 by Shahla Juan) Valvular heart disease (Chronic) Nonrheumatic mitral (valve) insufficiency (Chronic) Non-rheumatic tricuspid valve insufficiency (Chronic) Non-rheumatic aortic stenosis (Chronic) History of left heart catheterization (Chronic ~01/2014) 05/02/[address] Robertson [facility]; 01/29/[address] Porter at [facility]: coronaries angiographically normal, pulmonary htn by RV eval, EF at that time was 45-50% History of pleural effusion (Chronic) 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 (Chronic) [facility] current use of 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) Hypertension (Chronic) Chronic renal failure, stage 3 (moderate) (Chronic) History of anxiety disorder (Chronic) Generalized osteoarthritis (Chronic) History of gout (Chronic) Mild dementia (Chronic) Rheumatoid arthritis (Chronic) Diabetes mellitus, type II (Chronic) Generalized weakness (Chronic) History of prostate cancer (Chronic) Status post radiotherapy Anemia of chronic disease (Chronic) due to CRF and RA PAF (paroxysmal atrial fibrillation) (Chronic) Surgical History: cholecystectomy, total knee arthroplasty Psychiatric History: No pertinent psych hx - *Family History Maternal Family History: Family History (Last Reviewed 07/25/18 @ 09:23 by Estelle Wilder) Father CAD (coronary artery disease) Myocardial infarction Brother Diabetes History Items: No pertinent history Paternal Family History: Family History (Last Reviewed 07/25/18 @ 09:23 by Estelle Wilder) Father CAD (coronary artery disease) Myocardial infarction Brother Diabetes History Items: No pertinent history Lives: Spouse/ Significant Other Smoking Status: Never smoker Alcohol: None Drugs: None Review of Systems - Review of Systems General: Denies: Fever, Night Sweats, Fatigue Cardiovascular: Reports: Chest Discomfort, Shortness of Breath, Orthopnea, PND, Peripheral Edema. Denies: Palpitations, Lightheadedness, Dizziness, Near Syncope, Syncope Respiratory: Reports: Shortness of Breath. Denies: Cough, Sputum Production, Hemoptysis Gastrointestinal: Denies: Hematemesis, Hematochezia, Melena Genitourinary: Denies: Dysuria, Hematuria Skin: Denies: Rash Subjectve: This is a pleasant 83-year-old white male who appears to be resting comfortably at the moment in no acute distress. Objective: Vital Signs Temp Pulse Resp BP Pulse Ox 97.6 F L 80 18 127/73 H 95 12/20/18 12:35 12/20/18 14:59 12/20/18 16:02 12/20/18 12:35 12/20/18 16:02 Oxygen Flow Rate (L/min) 2 Oxygen Delivery Method Nasal Cannula Weight: 189 lb 9.561 oz Body Mass Index (BMI) 31.5 General: Awake, Alert, Cooperative, No Acute Distress, Obese HEENT: Atraumatic, Normocephalic, PERRL, EOMI, Sclera Non Icteric Oral: Moist Mucosa Neck: Supple, Good ROM, No JVD Lungs: Diminished Right Base Cardiovascular: Irregular Rhythm, Normal S1, Normal S2 Vascular: No Carotid Bruits Abdomen: Bowel Sounds Present, Soft, Non Tender Extremities: Moderate RLE Edema, Moderate LLE Edema Psych/Mental Status: Appropriate 12/20/18 10:35: WBC 5.6, RBC 3.94 L, Hgb 9.9 L, Hct 31.9 L, MCV 81.0, MCH 25.1 L, MCHC 31.0 L, RDW 19.3 H, RDW Differential 55.5 H, Plt Count 136 L, MPV 9.7, Immature Gran % (Auto) 0.200, Neut % (Auto) 74.9 H, Lymph % (Auto) 11.6 L, [place] % (Auto) 9.6, Eos % (Auto) 3.0, Baso % (Auto) 0.7, Absolute Neuts (auto) 4.2, Total Counted Not Reportable 12/20/18 10:35: PT 24.8 H, INR 2.2 12/20/18 10:35: Sodium 140, Potassium 3.8, Chloride 103, Carbon Dioxide 26.0, Anion Gap 11, BUN 37 H, Creatinine 2.16 H, Est GFR (MDRD) Af Amer 38 L, Est GFR (MDRD) Non-Af 31 L, BUN/Creatinine Ratio 17.1, Glucose 145 H, Calcium 8.3 L, Troponin I < 0.015 12/20/18 10:35: B-Natriuretic Peptide 762.4 H 12/20/18 10:50: Lactic Acid 2.1 H 12/20/18 14:00: Troponin I < 0.015 12/20/18 15:00: Lactic Acid 1.9 Rhythm: Atrial fibrillation EKG: Atrial fibrillation; left axis deviation; nonspecific IVCD ECHO: 12/28/2016: Left ventricle: Normal LV systolic function with an LVEF 65%; mild concentric LVH; mild MR/TR; moderate diffuse aortic valve thickening with mild restriction of the aortic valve with mild aortic valve stenosis and trivial AI, estimated RV systolic pressure 48 mmHg compatible pulmonary hypertension, decreased diastolic compliance Stress Test: 01/06/2018: Pharmacologic stress nuclear imaging study: Considered negative with respect to myocardial ischemia or infarction and a gated LVEF of 60% Cardiac Cath: 01/29/2014: [facility]: Per report: No angiographically significant appearing CAD; left ventricle reported with an LVEF of 45-50% CXR: Preliminary evaluation: Diminished inspiratory effort; right sided pleural effusion; please see official report Assessment/Plan 1. Atrial fibrillation The patient has had recurrence of his atrial fibrillation. It is unclear as to whether the loss of his atrial kick superimposed upon his underlying history of diastolic mediated CHF has led to now acute on chronic CHF with subsequent poor perfusion contributing to his diminished renal insufficiency, etc. At the present time he will continue to be monitored. He will continue rate control therapy. His anticoagulant therapy may need to be interrupted for potential upcoming invasive procedures including the possibility of a right-sided thoracentesis. He can continue his antiarrhythmic therapy. Depending upon his clinical course he may or may not be a candidate for repeat DC cardioversion, which is gone through at least on 2 different occasions in the past, versus consideration for future EP consultation for EPS/RFA. 2. Acute on chronic diastolic mediated CHF He has had progressive symptoms compatible with acute on chronic diastolic mediated CHF. His BNP is elevated. His renal function has declined. He will continue to be monitored. He will continue medical therapy. This will include IV diuretics. He will be reassessed with an echocardiogram to reevaluate his left ventricular wall motion and systolic function. 3. Valvular heart disease He does have a history of underlying valvular heart disease as described above. He will be reassessed with an echocardiogram for any significant changes it would be contributing to his current clinical course. 4. Pulmonary hypertension The does have a history of pulmonary hypertension as previously noted. Again an attempt was made to reassess his pulmonary status/right-sided pressures with a transthoracic echocardiogram. 5. Pleural effusion He does have a right-sided pleural effusion. Again at the present time his anticoagulants will be placed on hold as he may need a right-sided thoracentesis. 6. Hypertension He does have a history of hypertension. He will continue medical management with adjustment as needed. Consideration will have to be taken in account with respect to his underlying renal insufficiency when it comes to medical adjustment. 7. Renal insufficiency This creatinine level has increased. It may be secondary to his cardiovascular related issues. Again he will continue cardiovascular care. His renal function will need to be followed. Comment: The patient's case has been previously discussed with Dr. Cisneros of the [facility] emergency department staff. This note was generated with [employer] dictation software. It may contain incorrect words, spelling, and punctuation that were not noted in checking the note before signing.
[2018-12-20] MEDS: Acetaminophen 325 MG Tablet 650 MG PO (17:28)
--- NOTE | 2018-12-20 17:28 | CON.PCM_ITS ---
Problem List (1) Atrial fibrillation Status: Acute Qualifiers: Atrial fibrillation type: paroxysmal Qualified Code(s): I48.0 - Paroxysmal atrial fibrillation (2) Chronic diastolic (congestive) heart failure Status: Acute (3) Valvular heart disease Status: Chronic (4) 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 Status: Chronic (5) Pleural effusion Status: Acute (6) Hypertension Status: Chronic Qualifiers: (7) Renal insufficiency Status: Acute Reason for Consult Date of Consultation: 12/20/18 History of Present Illness: The patient is a 83 year old white male with a past cardiovascular history which has included concerns of underlying paroxysmal atrial fibrillation, chronic diastolic mediated CHF, valvular heart disease with concerns of aortic valve stenosis and mitral valve regurgitation/tricuspid valve regurgitation, pleural effusion status post previous thoracentesis, pulmonary hypertension, essential hypertension, superimposed upon concerns of diabetes mellitus and dementia who is referred for evaluation of progressive shortness of breath/dyspnea and recurrent atrial fibrillation. The patient notes that recently he has been having progressive shortness of breath and dyspnea as well as increasing lower extremity peripheral pitting edema and weight gain. He has noted orthopnea and PND. He has noted a discomfort feeling in his chest. He has not noted recurrence of his atrial relation. There has been no near syncope or syncope. He reportedly has had altering doses of diuretics per his PCP which has helped b ut not lead to resolution of his ongoing issues. He states he continues to follow with his PCP for his anticoagulant therapy which his states has been therapeutic. Based upon his ongoing symptoms and concerns he presented to the emergency department this day for reevaluation. In the emergency department he was found to be short of breath and dyspneic. He was noted to have peripheral pitting edema of the lower extremities. He was found to be in atrial fibrillation. On radiologic findings he was noted to have a right-sided pleural effusion. He was treated medically with IV furosemide. He was placed in the PCU for further evaluation and care. [] Past Medical History Allergies/Adverse Reactions: Allergies cimetidine HCl [From Tagamet] Allergy (Verified 12/20/18 11:36) Rash ciprofloxacin [From Cipro] Allergy (Verified 12/20/18 11:36) Rash amoxicillin trihydrate [From Augmentin] Adverse Reaction (Verified 12/20/18 11:36) Abd cramps/diarrhea cefdinir [From Omnicef] Adverse Reaction (Verified 12/20/18 11:36) Diarrhea indomethacin sodium [From Indocin] Adverse Reaction (Verified 12/20/18 11:36) Nausea memantine HCl [From Namenda] Adverse Reaction (Verified 12/20/18 11:36) dizziness potassium clavulanate [From Augmentin] Adverse Reaction (Verified 12/20/18 11:36) Abd cramps/diarrhea sitagliptin phosphate [From Januvia] Adverse Reaction (Verified 12/20/18 11:36) Nausea Home Medications: Ambulatory Orders Medication Instructions Recorded Cholecalciferol (Vitamin D3) 1,000 unit PO DAILY 12/25/13 [Vitamin D3] Aspirin [Aspirin, Baby] 81 mg PO QHS 11/17/14 Cyanocobalamin [Vitamin B12] 1,000 mcg PO DAILY@0800 11/17/14 Pantoprazole Sodium [Protonix] 40 mg PO DAILY 11/17/14 Dicyclomine HCl [Bentyl] 10 mg PO DINNER 03/15/17 Loratadine 10 mg PO DINNER 03/15/17 Metformin HCl 500 mg PO BIDCM 03/15/17 magnesium oxide 400 mg (241.3 mg 400 mg PO LUNCH 12/30/17 magnesium) tablet warfarin 2 mg tablet 2 mg PO SUTH 12/30/17 warfarin 2 mg tablet 4 mg PO MOTUWEFRSA 12/30/17 furosemide 40 mg tablet 60 mg PO DAILY tab 07/25/18 amiodarone 200 mg tablet 100 mg PO QHS #45 tab 08/04/18 Amlodipine [Norvasc] 5 mg PO QHS 12/20/18 Ascorbic Acid [Vitamin C] 1,000 mg PO DAILY 12/20/18 Carvedilol 12.5 mg PO BID 12/20/18 Galantamine HBr 8 mg PO DAILY 12/20/18 Lisinopril [Zestril] 40 mg PO LUNCH 12/20/18 Tamsulosin HCl [Flomax] 0.4 mg PO DAILY 12/20/18 Past Medical History (Chronic Problems): Chronic Problems (Last Reviewed 04/04/18 @ 15:08 by Shahla Juan) Valvular heart disease (Chronic) Nonrheumatic mitral (valve) insufficiency (Chronic) Non-rheumatic tricuspid valve insufficiency (Chronic) Non-rheumatic aortic stenosis (Chronic) History of left heart catheterization (Chronic ~01/2014) 05/02/[address] Robertson [facility]; 01/29/[address] Porter at [facility]: coronaries angiographically normal, pulmonary htn by RV eval, EF at that time was 45-50% History of pleural effusion (Chronic) 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 (Chronic) [facility] use of 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) Hypertension (Chronic) Chronic renal failure, stage 3 (moderate) (Chronic) History of anxiety disorder (Chronic) Generalized osteoarthritis (Chronic) History of gout (Chronic) Mild dementia (Chronic) Rheumatoid arthritis (Chronic) Diabetes mellitus, type II (Chronic) Generalized weakness (Chronic) History of prostate cancer (Chronic) Status post radiotherapy Anemia of chronic disease (Chronic) due to CRF and RA PAF (paroxysmal atrial fibrillation) (Chronic) Surgical History: cholecystectomy, total knee arthroplasty Psychiatric History: No pertinent psych hx - *Family History Maternal Family History: Family History (Last Reviewed 07/25/18 @ 09:23 by Estelle Wilder) Father CAD (coronary artery disease) Myocardial infarction Brother Diabetes History Items: No pertinent history Paternal Family History: Family History (Last Reviewed 07/25/18 @ 09:23 by Estelle Wilder) Father CAD (coronary artery disease) Myocardial infarction Brother Diabetes History Items: No pertinent history Lives: Spouse/ Significant Other Smoking Status: Never smoker Alcohol: None Drugs: None Review of Systems - Review of Systems General: Denies: Fever, Night Sweats, Fatigue Cardiovascular: Reports: Chest Discomfort, Shortness of Breath, Orthopnea, PND, Peripheral Edema. Denies: Palpitations, Lightheadedness, Dizziness, Near Syncope, Syncope Respiratory: Reports: Shortness of Breath. Denies: Cough, Sputum Production, Hemoptysis Gastrointestinal: Denies: Hematemesis, Hematochezia, Melena Genitourinary: Denies: Dysuria, Hematuria Skin: Denies: Rash Subjectve: This is a pleasant 83-year-old white male who appears to be resting comfortably at the moment in no acute distress. Objective: Vital Signs Temp Pulse Resp BP Pulse Ox 97.6 F L 80 18 127/73 H 95 12/20/18 12:35 12/20/18 14:59 12/20/18 16:02 12/20/18 12:35 12/20/18 16:02 Oxygen Flow Rate (L/min) 2 Oxygen Delivery Method Nasal Cannula Weight: 189 lb 9.561 oz Body Mass Index (BMI) 31.5 General: Awake, Alert, Cooperative, No Acute Distress, Obese HEENT: Atraumatic, Normocephalic, PERRL, EOMI, Sclera Non Icteric Oral: Moist Mucosa Neck: Supple, Good ROM, No JVD Lungs: Diminished Right Base Cardiovascular: Irregular Rhythm, Normal S1, Normal S2 Vascular: No Carotid Bruits Abdomen: Bowel Sounds Present, Soft, Non Tender Extremities: Moderate RLE Edema, Moderate LLE Edema Psych/Mental Status: Appropriate 12/20/18 10:35: WBC 5.6, RBC 3.94 L, Hgb 9.9 L, Hct 31.9 L, MCV 81.0, MCH 25.1 L , MCHC 31.0 L, RDW 19.3 H, RDW Differential 55.5 H, Plt Count 136 L, MPV 9.7, Immature Gran % (Auto) 0.200, Neut % (Auto) 74.9 H, Lymph % (Auto) 11.6 L, [place] % (Auto) 9.6, Eos % (Auto) 3.0, Baso % (Auto) 0.7, Absolute Neuts (auto) 4.2, Total Counted Not Reportable 12/20/18 10:35: PT 24.8 H, INR 2.2 12/20/18 10:35: Sodium 140, Potassium 3.8, Chloride 103, Carbon Dioxide 26.0, Anion Gap 11, BUN 37 H, Creatinine 2.16 H, Est GFR (MDRD) Af Amer 38 L, Est GFR (MDRD) Non-Af 31 L, BUN/Creatinine Ratio 17.1, Glucose 145 H, Calcium 8.3 L, Troponin I < 0.015 12/20/18 10:35: B-Natriuretic Peptide 762.4 H 12/20/18 10:50: Lactic Acid 2.1 H 12/20/18 14:00: Troponin I < 0.015 12/20/18 15:00: Lactic Acid 1.9 Rhythm: Atrial fibrillation EKG: Atrial fibrillation; left axis deviation; nonspecific IVCD ECHO: 12/28/2016: Left ventricle: Normal LV systolic function with an LVEF 65%; mild concentric LVH; mild MR/TR; moderate diffuse aortic valve thickening with mild restriction of the aortic valve with mild aortic valve stenosis and trivial AI, estimated RV systolic pressure 48 mmHg compatible pulmonary hypertension, decreased diastolic compliance Stress Test: 01/06/2018: Pharmacologic stress nuclear imaging study: Considered negative with respect to myocardial ischemia or infarction and a gated LVEF of 60% Cardiac Cath: 01/29/2014: [facility]: Per report: No angiographically significant appearing CAD; left ventricle reported with an LVEF of 45-50% CXR: Preliminary evaluation: Diminished inspiratory effort; right sided pleural effusion; please see official report Assessment/Plan 1. Atrial fibrillation The patient has had recurrence of his atrial fibrillation. It is unclear as to whether the loss of his atrial kick superimposed upon his underlying history of diastolic mediated CHF has led to now acute on chronic CHF with subsequent poor perfusion contributing to his diminished renal insufficiency, etc. At the present time he will continue to be monitored. He will continue rate control therapy. His anticoagulant therapy may need to be interrupted for potential upcoming invasive procedures including the possibility of a right- sided thoracentesis. He can continue his antiarrhythmic therapy. Depending upon his clinical course he may or may not be a candidate for repeat DC cardioversion, which is gone through at least on 2 different occasions in the past, versus consideration for future EP consultation for EPS/RFA. 2. Acute on chronic diastolic mediated CHF He has had progressive symptoms compatible with acute on chronic diastolic mediated CHF. His BNP is elevated. His renal function has declined. He will continue to be monitored. He will continue medical therapy. This will include IV diuretics. He will be reassessed with an echocardiogram to reevaluate his left ventricular wall motion and systolic function. 3. Valvular heart disease He does have a history of underlying valvular heart disease as described above. He will be reassessed with an echocardiogram for any significant changes it would be contributing to his current clinical course. 4. Pulmonary hypertension The does have a history of pulmonary hypertension as previously noted. Again an attempt was made to reassess his pulmonary status/right-sided pressures with a transthoracic echocardiogram. 5. Pleural effusion He does have a right-sided pleural effusion. Again at the present time his anticoagulants will be placed on hold as he may need a right-sided thoracentesis. 6. Hypertension He does have a history of hypertension. He will continue medical management with adjustment as needed. Consideration will have to be taken in account with respect to his underlying renal insufficiency when it comes to medical adjustment. 7. Renal insufficiency This creatinine level has increased. It may be secondary to his cardiovascular related issues. Again he will continue cardiovascular care. His renal function will need to be followed. Comment: The patient's case has been previously discussed with Dr. Cisneros of the [facility] emergency department staff. This note was generated with [facility] dictation software. It may contain incorrect words, spelling, and punctuation that were not noted in checking the note before signing.
[2018-12-20] MEDS: Dicyclomine 10 MG Capsule PO (17:29)
[2018-12-20] MEDS: Loratadine 10 MG Tablet PO (17:29)
[2018-12-20] MEDS: Furosemide 40 MG/4 ML Vial IV (17:30)
[2018-12-20 19:38] LABS: Bacteria 0 SEEN /hpf (None Seen); Mucous, Urine 0 SEEN /hpf (<or=2+); Red Blood Cells-Urine 0 SEEN /hpf (0-5); Squamous Epithelial Cells - UA 0 SEEN /hpf (0-5)
[2018-12-20 19:51] LABS: Color, Urine Yellow (Yellow); Glucose, Dipstick Normal (Normal); Ketone-Dipstick Negative (Negative); Leukocyte Esterase-Dipstick 500 /ul (Negative); Nitrite-Dipstick Negative (Negative); Occult Blood-Urine 10 /ul (Negative); Protein-Dipstick 15 mg/dl (Negative); Urine Bilirubin Dipstick Negative (Negative); Urine Clarity Clear (Clear); Urine Urobilinogen Normal (Normal); Urine pH 6.5 (5.0 - 8.0)
[2018-12-20 20:13] LABS: White Blood Cells 0-5 SEEN /hpf (0-5)
[2018-12-20 20:23] LABS: Urea Nitrogen, Urine 230 mg/dL (NO RANGE EST.)
[2018-12-20] MEDS: Galantamine Hydrobromide 4 MG Tablet PO (21:59)
[2018-12-20] MEDS: Amiodarone 200 MG Tablet 100 MG PO (21:59)
[2018-12-20] MEDS: Aspirin 81 MG TAB.CHEW PO (21:59)
[2018-12-20 23:36] LABS: Bedside Glucose 131 mg/dL (70-110)
[2018-12-21] VITALS (11 sets, daily range): BP systolic 110–136; BP diastolic 65–88; PULSE 79–97; RESP 18; TEMP 36.5–36.9; O2SAT 92–96
--- NOTE | 2018-12-21 05:55 | EKG12_ITS ---
Test Reason : AM EKG Blood Pressure : / mmHG Vent. Rate : 079 BPM Atrial Rate : 083 BPM P-R Int : 000 ms QRS Dur : 124 ms QT Int : 440 ms P-R-T Axes : 000 -47 106 degrees QTc Int : 504 ms Atrial fibrillation Left anterior fascicular block Nonspecific T wave abnormality Abnormal ECG Confirmed by ROSEMARIE PEREZ, ABBIE ([id number]), design editor RANDELL TOMLIN ([id number] on 12/23/2018 2:41:03 PM Referred By: Katlyn Holland Confirmed By:ABBIE HOUSTON MD
[2018-12-21 06:42] LABS: International Normalized Ratio 2.4
[2018-12-21 06:48] LABS: Absolute Lymphocyte Count 0.75 X10^3/ul (0.83-4.51); Anion Gap 10 (5-15); BUN 40 mg/dL (7-18); BUN/Creat Ratio 18.2 RATIO (10-20); Basophil# 0.05 X10^3/uL; Basophil% 0.9 % (0-1); Calcium,Total 8.3 mg/dL (8.5-10.1); Chloride 102 mmol/L (98-107); EST Glomerular Filtration Rate 31 mL/min (>60); Eosinophil# 0.19 X10^3/uL; Eosinophils% 3.3 % (0-5); Est Glom Filt Rate - Afr Amer 37 mL/min (>60); Estimated Creatinine Clearance 22.13 ml/min; Glucose 108 mg/dL (74-106); Hematocrit 30.6 % (40-54); Hemoglobin 9.5 g/dl (13.0-16.5); Lymphocyte # 0.75 X10^3/ul (4.0); Lymphocyte % 13.2 % (19-41); Mean Corpuscular Hgb 25.1 pg (27.0-32.0); Mean Corpuscular Volume 80.7 fL (80-94); Mean Platelet Vol. 9.5 fl (6.2-12.0); Monocyte# 0.65 X10^3/uL; Monocyte% 11.4 % (0-10); Neutrophil # 4.02 X10^3/uL (2.7-7.7); Neutrophil % 70.8 % (47-70); Platelet Count 135 K/mm3 (150-450); Potassium 3.5 mmol/L (3.5-5.1); RBC Distribution Width CV 19.3 % (11.6-14.6); RBC Distribution Width SD 56.2 fl (35.1-43.9); Red Blood Count 3.79 M/mm3 (4.6-6.2); Sodium Level 140 mmol/L (136-145); White Blood Count 5.7 K/mm3 (4.4-11.0)
[2018-12-21 06:51] LABS: POSITIVE COUNT NO; POSITIVE DIFFERENTIAL NO; POSITIVE MORPHOLOGY NO
[2018-12-21 07:11] LABS: Bedside Glucose 105 mg/dL (70-110)
--- NOTE | 2018-12-21 08:51 | PCM.PN.CARD ---
Subjectve: Patient doing well this morning, reports improved shortness of breath. Symptoms occurred about 4 days ago and is progressively gotten worse. Patient did not miss any medications and has not had dietary indiscretion. Objective: Vital Signs Temp Pulse Resp BP Pulse Ox 98.5 F 83 18 110/65 93 12/21/18 03:50 12/21/18 07:15 12/21/18 03:50 12/21/18 03:50 12/21/18 07:37 Oxygen Flow Rate (L/min) 3 Oxygen Delivery Method Nasal Cannula Weight: 186 lb 11.704 oz Body Mass Index (BMI) 31.5 Intake and Output for Last 24 Hours 12/19/18 12/20/18 12/21/18 23:59 23:59 23:59 Intake Total 545 / 545 190 / 190 Output Total 625 / 625 200 / 200 Balance -80 / -80 -10 / -10 General: Awake, Alert, Oriented x 3 HEENT: PERRL, EOMI, Sclera Non Icteric Neck: Supple, Good ROM, No Lymph Node Enlargement Lungs: Clear to auscultation, Diminished Right Base Cardiovascular: Irregular Rhythm, Normal S2, No Rubs, No Gallops Murmur Murmur: Grade 2/6, Holosystolic Vascular: No Carotid Bruits, Normal Femoral Pulses, Normal Radial Pulses, Normal Dorsalis Pedal Pulse, Normal Posterior Tibial Pulses Abdomen: Bowel Sounds Present, Soft, Non Tender, No HSM, No Organomegaly Extremities: No Cyanosis, No Clubbing, No edema Neurological: No Focal Motor or Sensory Deficit 12/20/18 10:35: WBC 5.6, RBC 3.94 L, Hgb 9.9 L, Hct 31.9 L, MCV 81.0, MCH 25.1 L, MCHC 31.0 L, RDW 19.3 H, RDW Differential 55.5 H, Plt Count 136 L, MPV 9.7, Immature Gran % (Auto) 0.200, Neut % (Auto) 74.9 H, Lymph % (Auto) 11.6 L, [place] % (Auto) 9.6, Eos % (Auto) 3.0, Baso % (Auto) 0.7, Absolute Neuts (auto) 4.2, Total Counted Not Reportable 12/20/18 10:35: PT 24.8 H, INR 2.2 12/20/18 10:35: Sodium 140, Potassium 3.8, Chloride 103, Carbon Dioxide 26.0, Anion Gap 11, BUN 37 H, Creatinine 2.16 H, Est GFR (MDRD) Af Amer 38 L, Est GFR (MDRD) Non-Af 31 L, BUN/Creatinine Ratio 17.1, Glucose 145 H, Calcium 8.3 L, Troponin I < 0.015 12/20/18 10:35: B-Natriuretic Peptide 762.4 H 12/20/18 10:50: Lactic Acid 2.1 H 12/20/18 14:00: Troponin I < 0.015 12/20/18 15:00: Lactic Acid 1.9 12/20/18 16:40: Troponin I < 0.015 12/20/18 19:30: Urine Color Yellow, Urine Clarity Clear, Urine pH 6.5, Ur Specific [place] 1.010, Urine Protein 15 H, Urine Glucose (UA) Normal, Urine Ketones Negative, Urine Occult Blood 10 H, Urine Nitrite Negative, Urine Bilirubin Negative, Urine Urobilinogen Normal, Ur Leukocyte Esterase 500 H, Urine RBC 0 SEEN, Urine WBC 0-5 SEEN 12/21/18 06:10: WBC 5.7, RBC 3.79 L, Hgb 9.5 L, Hct 30.6 L, MCV 80.7, MCH 25.1 L, MCHC 31.0 L, RDW 19.3 H, RDW Differential 56.2 H, Plt Count 135 L, MPV 9.5, Immature Gran % (Auto) 0.400, Neut % (Auto) 70.8 H, Lymph % (Auto) 13.2 L, [place] % (Auto) 11.4 H, Eos % (Auto) 3.3, Baso % (Auto) 0.9, Absolute Neuts (auto) 4.0, Total Counted Not Reportable 12/21/18 06:10: Sodium 140, Potassium 3.5, Chloride 102, Carbon Dioxide 28.0, Anion Gap 10, BUN 40 H, Creatinine 2.20 H, Est GFR (MDRD) Af Amer 37 L, Est GFR (MDRD) Non-Af 31 L, BUN/Creatinine Ratio 18.2, Glucose 108 H, Calcium 8.3 L 12/21/18 06:10: PT 26.0 H, INR 2.4 Rhythm: EKG: ECHO: Stress Test: Cardiac Cath: PCI: CT Surgery: Holter monitor: EPS: PPM: CXR: Chest CT Scan: Medical Necessity - Tobacco Use Smoking Status: Never smoker Assessment/Plan 1. Right pleural effusion: Patient's main issue appears to be his recurring right pleural effusion, as he has had several admissions for same. Patient has egophony a proximally [address] up his right lung base, and chest x-ray confirms right pleural effusion. He is still not able to lay down flat although his breathing is fine and he is off O2. Would recommend holding his Coumadin for repeat thoracentesis once his INR is less than 1.6. Patient will require subcu Lovenox as his INR drops below 2.0 given his atrial fibrillation. In addition his echocardiogram shows intact LV function with an EF of 60%, RVSP of approximately 40-45 m of mercury, and 1-2+ mitral regurgitation which is most likely contributing to his pulmonary hypertension and pleural effusion. Would not recommend stress testing or repeat catheterization at this time. Once his thoracentesis is been completed, the patient may benefit from repeat DC cardioversion with amiodarone assistance as he would do better with normal sinus rhythm to preserve his cardiac output. At his age, I would not recommend pleurodesis at this time unless the patient continues to have recurrent right pleural effusions requiring multiple admissions. This would need to be done at an outside facility. In addition we will decrease his Coreg to 6.25 mg while he is normalizing his congestive heart failure exacerbation. Would recommend continuing IV Lasix 40 mg IV twice daily until his pleural effusion has resolved. Patient has chronic renal insufficiency requiring additional Lasix therapy. Would recommend Lasix 60 mg p.o. twice daily upon discharge. The patient was on 60 mg p.o. daily at home. 2. Atrial fibrillation: Currently rate controlled with amiodarone and Coreg therapy. Recommend holding Coumadin until INR is less than 1.6 followed by right-sided thoracentesis. Patient will require subcu Lovenox while he is transitioning to an INR of less than 2.0. INR today is 2.4. 3. Thank you very much for the opportunity to participate in the cardiac care of your patient. Code Visit Inpatient E&M: 94036 In Hosp L3
--- NOTE | 2018-12-21 09:17 | RAD_ITS ---
STUDY: X-RAY - THORACIC SPINE REASON FOR EXAM: Male, 83 years old. Chronic back pain. TECHNIQUE: 3 view(s) of the thoracic spine were obtained. COMPARISON: None. FINDINGS: There is an increase in the normal thoracic kyphosis. There is no substantial scoliosis. There is demineralization of the thoracic spine with endplate spondylosis. There is multilevel disc space narrowing of the thoracic spine. Calcification of the aortic arch. RAD/Thoracic Spine 3 Views IMPRESSION: Multilevel disc space narrowing and anterior kissing osteophytes. Ankylosing spondylitis should be ruled out. Electronically Signed: Justin Castro MD at 13:32 EST , Service support ,
[2018-12-21] MEDS: Furosemide 40 MG/4 ML Vial IV ×2 (09:24→16:22)
[2018-12-21] MEDS: Galantamine Hydrobromide 4 MG Tablet PO ×2 (09:24→21:37)
[2018-12-21] MEDS: Cyanocobalamin 500 MCG Tablet 1000 MCG PO (09:24)
[2018-12-21] MEDS: Pantoprazole Sodium 40 MG Tablet PO (09:24)
[2018-12-21] MEDS: Tamsulosin HCl 0.4 MG Capsule PO (09:24)
[2018-12-21] MEDS: Carvedilol 6.25 MG Tablet PO ×2 (09:24→21:37)
--- NOTE | 2018-12-21 10:00 | RAD_ITS ---
STUDY: X-RAY - LUMBAR SPINE REASON FOR EXAM: Male, 83 years old. Back pain. TECHNIQUE: 3 view(s) of the lumbar spine were obtained. COMPARISON: Comparison is made with prior study dated August 15, 2015. FINDINGS: Normal lumbar lordosis. There is no substantial scoliosis. There is a normal alignment of the vertebrae. There is diffuse demineralization with multi-level endplate spondylosis. There is multi-level degenerative disc disease with multi-level disc space narrowing. Facet joint osteoarthritis. There is atherosclerotic calcification of the abdominal aorta without a demonstrated aneurysm. RAD/Lumbar Spine 2 or 3 Views IMPRESSION: Degenerative changes of the spine, as detailed above. Electronically Signed: Justin Castro MD at 13:34 EST , Service support ,
[2018-12-21 12:05] LABS: Bedside Glucose 98 mg/dL (70-110)
--- NOTE | 2018-12-21 13:28 | PCM.PN.HOSP ---
Patient Problems: Active and Suspected Problems (Last Reviewed 04/04/18 @ 15:08 by Shahla Juan) Atrial fibrillation (Acute) Pleural effusion (Acute) Renal insufficiency (Acute) Subjective: Patient seen and examined. He was admitted with a complaint of shortness of breath and bilateral lower extremity edema. He is been managed for acute diastolic CHF exacerbation. Patient seen and examined. He feels much better today and is off oxygen. He denies any cough or palpitations, orthopnea has resolved and he denies any chest pain, abdominal pain, diarrhea vomiting. Bilateral lower extremity edema is also improved. Labs and vitals reviewed. Vitals/I&O's: Vital Signs Temp Pulse Resp BP Pulse Ox 98 F 81 18 116/70 94 12/21/18 09:20 12/21/18 11:02 12/21/18 09:20 12/21/18 09:20 12/21/18 09:20 Oxygen Flow Rate (L/min) 3 Oxygen Delivery Method Room Air Weight: 186 lb 11.704 oz Body Mass Index (BMI) 31.5 Intake and Output for Last 24 Hours 12/19/18 12/20/18 12/21/18 23:59 23:59 23:59 Intake Total 545 / 545 310 / 310 Output Total 625 / 625 700 / 700 Balance -80 / -80 -390 / -390 General: Alert, Cooperative, No apparent distress HEENT: Atraumatic, PERRLA, EOMI, Normocephalic Oral: Moist Mucosa Neck: Supple, No JVD, Negative Carotid Bruits Lungs: - -mildly decreased breath sounds bibasally, no wheezing or crackles Cardiovascular: Regular rate, Regular Rhythm, Normal S1, Normal S2, No murmurs Abdomen: Bowel Sounds Present, Soft, Non Tender, Non-Distended, No Hepato-splenomegaly Extremities: - - 2+ bilateral LE pitting pedal edema Skin: No rashes, No breakdown Musculoskeletal: No Tenderness to Palpation of Joints or Extremities Lymphatic: No Cervical, Supraclavicular, or Inguinal Adenopathy Neurological: Cranial nerves II-XII grossly intact, Neuro grossly intact, Motor Exam 5/5 strength throughout Psych/Mental Status: Normal Affect, Appropriate, Alert and oriented to time, place, person, mood and affect Laboratory Results 12/20/18 14:00: Troponin I < 0.015 12/20/18 14:01: POC Glucose 103 12/20/18 15:00: Lactic Acid 1.9 12/20/18 16:40: Troponin I < 0.015 12/20/18 16:50: POC Glucose 115 H 12/20/18 19:30: Urine Creatinine 46.80 12/20/18 19:30: Urine Urea Nitrogen 230 12/20/18 19:30: Urine Color Yellow, Urine Clarity Clear, Urine pH 6.5, Ur Specific [place] 1.010, Urine Protein 15 H, Urine Glucose (UA) Normal, Urine Ketones Negative, Urine Occult Blood 10 H, Urine Nitrite Negative, Urine Bilirubin Negative, Urine Urobilinogen Normal, Ur Leukocyte Esterase 500 H, Urine RBC 0 SEEN, Urine WBC 0-5 SEEN, Ur Squamous Epith Cells 0 SEEN, Urine Bacteria 0 SEEN, Urine Mucus 0 SEEN 12/20/18 21:57: POC Glucose 131 H 12/21/18 06:10: WBC 5.7, RBC 3.79 L, Hgb 9.5 L, Hct 30.6 L, MCV 80.7, MCH 25.1 L, MCHC 31.0 L, RDW 19.3 H, RDW Differential 56.2 H, Plt Count 135 L, MPV 9.5, Immature Gran % (Auto) 0.400, Neut % (Auto) 70.8 H, Lymph % (Auto) 13.2 L, [place] % (Auto) 11.4 H, Eos % (Auto) 3.3, Baso % (Auto) 0.9, Absolute Neuts (auto) 4.0, Absolute Lymphs (auto) 0.75 L, Total Counted Not Reportable 12/21/18 06:10: Sodium 140, Potassium 3.5, Chloride 102, Carbon Dioxide 28.0, Anion Gap 10, BUN 40 H, Creatinine 2.20 H, Estim Creat Clear Calc 22.13, Est GFR (MDRD) Af Amer 37 L, Est GFR (MDRD) Non-Af 31 L, BUN/Creatinine Ratio 18.2, Glucose 108 H, Calcium 8.3 L 12/21/18 06:10: PT 26.0 H, INR 2.4 12/21/18 07:05: POC Glucose 105 12/21/18 11:59: POC Glucose 98 Current Medications Acetaminophen (Tylenol) 650 mg PO Q6H PRN PRN PRN Reason: PAIN Last Admin: 12/20/18 17:28 Dose: 650 mg Amiodarone HCl (Cordarone) 100 mg PO QHS [facility] Last Admin: 12/20/18 21:59 Dose: 100 mg Amlodipine Besylate (Norvasc) 5 mg PO QHS [facility] Last Admin: 12/21/18 00:29 Dose: Not Given Ascorbic Acid (Vitamin C) 1,000 mg PO LUNCH [facility] Aspirin (Aspirin, Baby) 81 mg PO QHS [facility] Last Admin: 12/20/18 21:59 Dose: 81 mg Carvedilol (Coreg) 6.25 mg PO BID [facility] Last Admin: 12/21/18 09:24 Dose: 6.25 mg Cholecalciferol (Vitamin D) 1,000 unit PO DAILY [facility] Last Admin: 12/21/18 09:24 Dose: 1,000 unit Cyanocobalamin (Vitamin B12) 1,000 mcg PO DAILY@0800 [facility] Last Admin: 12/21/18 09:24 Dose: 1,000 mcg Dextrose (D50w Syringe) 0 gm IV X1 PRN; Protocol PRN Reason: Hypoglycemia Dicyclomine HCl (Bentyl) 10 mg PO DINNER [facility] Last Admin: 12/20/18 17:29 Dose: 10 mg Furosemide (Lasix) 40 mg IV BID@1000,1800 [facility] Last Admin: 12/21/18 09:24 Dose: 40 mg Galantamine Hydrobromide (Razadyne) 4 mg PO BID [facility] Last Admin: 12/21/18 09:24 Dose: 4 mg Glucagon () 1 mg IM .X1 PRN PRN Reason: Hypoglycemia Insulin Human Lispro (Humalog Kwikpen (Bkc)) 0 unit SQ [facility]; Protocol Last Admin: 12/21/18 12:06 Dose: Not Given Loratadine (Claritin) 10 mg PO DINNER [facility] Last Admin: 12/20/18 17:29 Dose: 10 mg Magnesium Hydroxide (Milk Of Magnesia) 30 ml PO DAILY PRN PRN PRN Reason: Constipation Magnesium Oxide (Mag-Ox 400) 400 mg PO LUNCH [facility] Pantoprazole Sodium (Protonix) 40 mg PO DAILY [facility] Last Admin: 12/21/18 09:24 Dose: 40 mg Sodium Chloride () 5 - 15 ml IV UD PRN PRN Reason: SALINE FLUSH Tamsulosin HCl (Flomax) 0.4 mg PO DAILY [facility] Last Admin: 12/21/18 09:24 Dose: 0.4 mg Medical Necessity - Tobacco Use Smoking Status: Never smoker Assessment/Plan All Active Problems (Last Reviewed 04/04/18 @ 15:08 by Shahla Juan) Community acquired bacterial pneumonia (Acute) Atrial fibrillation (Acute) Pleural effusion (Acute) Renal insufficiency (Acute) Chronic diastolic (congestive) heart failure (Acute) Chest pain (Resolved) Dehydration (Resolved) Hypomagnesemia (Resolved) 83-year-old male admitted with a complaint of shortness of breath, orthopnea, PND and lower extremity edema. 1. Acute on chronic diastolic heart failure SOB has improved, and he is now off oxygen. still has 2+ bilateral LE pitting pedal edema troponins x 3 were negative on IV lasix 40mg bid. Troponin has trended up to 2.2 Urine output has been 700 mils so far today was 625 mils yesterday. cardiology on board 2D echo: EF of 60%. Left ventricular systolic function is normal. Unable to assess diastolic dysfunction. Mildly dilated right ventricle. Left atrium mildly enlarged and right atrium also mildly enlarged. 1-2+ mitral valve insufficiency. RVSP of 39 mmHg. Moderate to severe aortic valve stenosis. cardiology on board on carvedilol CXR did show small to moderate right pleural effusion. coumadin currently on hold in anticipation of thoracentesis, which patient has required in the past. will repeat CXR tomorrow. 2. CARMEN on CKD: Cr was 2.16 on admission, baseline is ~ 1.5 Cr up to 2.2 today; lisinopril on hold FeUrea is 62.1, indicating intrinsic renal disease UA showed LE of 500, 0-5 wbc seen. No bacteria seen. 3. Lactic acidosis: resolved. was 2 on admisison; now down to 1.9 4. Chronic aFib: EKG showed Afib. on amiodarone and carvedilol. INR today is 2.4. coumadin on hold as under 1. 5. Diabetes mellitus: will hold metformin o/a of CARMEN. ISS. Accuchecks ACHS DVT prophylaxis: INR is therapeutic. coumadin on hold Code Visit Inpatient E&M: 68434 Subs Hosp L3
--- NOTE | 2018-12-21 13:31 | CASEMGMT ---
YANG CHAMBERS assessment: Face to Face with patient for initial transition planning/care coordination assessment. YANG CHAMBERS introduced self and role at [facility], pt voices understanding and consents to assessment at this time. Pt is sitting up in chair in no distress at this time. Pt is A/OX x4 at this time and answers questions appropriately at this time. Pt is hard of hearing. Pt's is at bedside and answers most questions for pt at this time. Care providers, pharmacy, and demographics verified. PCP: Pedro Marie Specialists: German, cardio; gina Kaur; [facility], and retinal specialist in [place] Preferred Pharmacy: [facility] Insurance: [facility] Prescription Benefit: [facility] Living Will/HPOA: Pt does have LW/HPOA and they are on file with [facility] at this time. Pt states , Marbella Gay, is HPOA. LNOK: Marbella Gay, ; Hemant Gay, son Living Arrangements: Pt states he lives with on main level of 1.5 story home and states no concerns at home at this time. Pt is independent with ADL's at home at this time. Transportation: Pt states she drives and states no transportation concerns at this time. DME/HHC: Pt has the following DME but states only uses the cpap: grab bars, shower chair, cane, walker, and cpap thru [facility]. states no hx of HHC or SNF in the past. Pt/ state no concerns with going home at time of discharge. Pt is retired. Pt does not smoke or drink ETOH. Pt/ voice no further questions/concerns/needs at this time. CM to follow for PT/OT evals and for any further discharge planning/needs. Advised pt to ask for CM if any further questions/concerns/needs arise, voices understanding. Plan: Home, pending PT/OT evals. S[place]en YANG CHAMBERS
--- NOTE | 2018-12-21 13:36 | PN_ITS ---
Patient Problems: Active and Suspected Problems (Last Reviewed 04/04/18 @ 15:08 by Shahla Juan) Atrial fibrillation (Acute) Pleural effusion (Acute) Renal insufficiency (Acute) Subjective: Patient seen and examined. He was admitted with a complaint of shortness of breath and bilateral lower extremity edema. He is been managed for acute diastolic CHF exacerbation. Patient seen and examined. He feels much better today and is off oxygen. He denies any cough or palpitations, orthopnea has resolved and he denies any chest pain, abdominal pain, diarrhea vomiting. Bilateral lower extremity edema is also improved. Labs and vitals reviewed. Vitals/I&O's: Vital Signs Temp Pulse Resp BP Pulse Ox 98 F 81 18 116/70 94 12/21/18 09:20 12/21/18 11:02 12/21/18 09:20 12/21/18 09:20 12/21/18 09:20 Oxygen Flow Rate (L/min) 3 Oxygen Delivery Method Room Air Weight: 186 lb 11.704 oz Body Mass Index (BMI) 31.5 Intake and Output for Last 24 Hours 12/19/18 12/20/18 12/21/18 23:59 23:59 23:59 Intake Total 545 / 545 310 / 310 Output Total 625 / 625 700 / 700 Balance -80 / -80 -390 / -390 General: Alert, Cooperative, No apparent distress HEENT: Atraumatic, PERRLA, EOMI, Normocephalic Oral: Moist Mucosa Neck: Supple, No JVD, Negative Carotid Bruits Lungs: - -mildly decreased breath sounds bibasally, no wheezing or crackles Cardiovascular: Regular rate, Regular Rhythm, Normal S1, Normal S2, No murmurs Abdomen: Bowel Sounds Present, Soft, Non Tender, Non-Distended, No Hepato- splenomegaly Extremities: - - 2+ bilateral LE pitting pedal edema Skin: No rashes, No breakdown Musculoskeletal: No Tenderness to Palpation of Joints or Extremities Lymphatic: No Cervical, Supraclavicular, or Inguinal Adenopathy Neurological: Cranial nerves II-XII grossly intact, Neuro grossly intact, Motor Exam 5/5 strength throughout Psych/Mental Status: Normal Affect, Appropriate, Alert and oriented to time, place, person, mood and affect Laboratory Results 12/20/18 14:00: Troponin I < 0.015 12/20/18 14:01: POC Glucose 103 12/20/18 15:00: Lactic Acid 1.9 12/20/18 16:40: Troponin I < 0.015 12/20/18 16:50: POC Glucose 115 H 12/20/18 19:30: Urine Creatinine 46.80 12/20/18 19:30: Urine Urea Nitrogen 230 12/20/18 19:30: Urine Color Yellow, Urine Clarity Clear, Urine pH 6.5, Ur Specific [place] 1.010, Urine Protein 15 H, Urine Glucose (UA) Normal, Urine Ketones Negative, Urine Occult Blood 10 H, Urine Nitrite Negative, Urine Bilirubin Negative, Urine Urobilinogen Normal, Ur Leukocyte Esterase 500 H, Urine RBC 0 SEEN, Urine WBC 0-5 SEEN, Ur Squamous Epith Cells 0 SEEN, Urine Bacteria 0 SEEN, Urine Mucus 0 SEEN 12/20/18 21:57: POC Glucose 131 H 12/21/18 06:10: WBC 5.7, RBC 3.79 L, Hgb 9.5 L, Hct 30.6 L, MCV 80.7, MCH 25.1 L , MCHC 31.0 L, RDW 19.3 H, RDW Differential 56.2 H, Plt Count 135 L, MPV 9.5, Immature Gran % (Auto) 0.400, Neut % (Auto) 70.8 H, Lymph % (Auto) 13.2 L, [place] % (Auto) 11.4 H, Eos % (Auto) 3.3, Baso % (Auto) 0.9, Absolute Neuts (auto) 4.0, Absolute Lymphs (auto) 0.75 L, Total Counted Not Reportable 12/21/18 06:10: Sodium 140, Potassium 3.5, Chloride 102, Carbon Dioxide 28.0, Anion Gap 10, BUN 40 H, Creatinine 2.20 H, Estim Creat Clear Calc 22.13, Est GFR (MDRD) Af Amer 37 L, Est GFR (MDRD) Non-Af 31 L, BUN/Creatinine Ratio 18.2, Glucose 108 H, Calcium 8.3 L 12/21/18 06:10: PT 26.0 H, INR 2.4 12/21/18 07:05: POC Glucose 105 12/21/18 11:59: POC Glucose 98 Current Medications Acetaminophen (Tylenol) 650 mg PO Q6H PRN PRN PRN Reason: PAIN Last Admin: 12/20/18 17:28 Dose: 650 mg Amiodarone HCl (Cordarone) 100 mg PO QHS [facility] Last Admin: 12/20/18 21:59 Dose: 100 mg Amlodipine Besylate (Norvasc) 5 mg PO QHS [facility] Last Admin: 12/21/18 00:29 Dose: Not Given Ascorbic Acid (Vitamin C) 1,000 mg PO LUNCH [facility] Aspirin (Aspirin, Baby) 81 mg PO QHS [facility] Last Admin: 12/20/18 21:59 Dose: 81 mg Carvedilol (Coreg) 6.25 mg PO BID [facility] Last Admin: 12/21/18 09:24 Dose: 6.25 mg Cholecalciferol (Vitamin D) 1,000 unit PO DAILY [facility] Last Admin: 12/21/18 09:24 Dose: 1,000 unit Cyanocobalamin (Vitamin B12) 1,000 mcg PO DAILY@0800 [facility] Last Admin: 12/21/18 09:24 Dose: 1,000 mcg Dextrose (D50w Syringe) 0 gm IV X1 PRN; Protocol PRN Reason: Hypoglycemia Dicyclomine HCl (Bentyl) 10 mg PO DINNER [facility] Last Admin: 12/20/18 17:29 Dose: 10 mg Furosemide (Lasix) 40 mg IV BID@1000,1800 [facility] Last Admin: 12/21/18 09:24 Dose: 40 mg Galantamine Hydrobromide (Razadyne) 4 mg PO BID [facility] Last Admin: 12/21/18 09:24 Dose: 4 mg Glucagon () 1 mg IM .X1 PRN PRN Reason: Hypoglycemia Insulin Human Lispro (Humalog Kwikpen (Bkc)) 0 unit SQ [facility]; Protocol Last Admin: 12/21/18 12:06 Dose: Not Given Loratadine (Claritin) 10 mg PO DINNER [facility] Last Admin: 12/20/18 17:29 Dose: 10 mg Magnesium Hydroxide (Milk Of Magnesia) 30 ml PO DAILY PRN PRN PRN Reason: Constipation Magnesium Oxide (Mag-Ox 400) 400 mg PO LUNCH [facility] Pantoprazole Sodium (Protonix) 40 mg PO DAILY [facility] Last Admin: 12/21/18 09:24 Dose: 40 mg Sodium Chloride () 5 - 15 ml IV UD PRN PRN Reason: SALINE FLUSH Tamsulosin HCl (Flomax) 0.4 mg PO DAILY [facility] Last Admin: 12/21/18 09:24 Dose: 0.4 mg Medical Necessity - Tobacco Use Smoking Status: Never smoker Assessment/Plan All Active Problems (Last Reviewed 04/04/18 @ 15:08 by Shahla Juan) Community acquired bacterial pneumonia (Acute) Atrial fibrillation (Acute) Pleural effusion (Acute) Renal insufficiency (Acute) Chronic diastolic (congestive) heart failure (Acute) Chest pain (Resolved) Dehydration (Resolved) Hypomagnesemia (Resolved) 83-year-old male admitted with a complaint of shortness of breath, orthopnea, PND and lower extremity edema. 1. Acute on chronic diastolic heart failure * SOB has improved, and he is now off oxygen. * still has 2+ bilateral LE pitting pedal edema * troponins x 3 were negative * on IV lasix 40mg bid. Troponin has trended up to 2.2 * Urine output has been 700 mils so far today was 625 mils yesterday. * cardiology on board * 2D echo: EF of 60%. Left ventricular systolic function is normal. Unable to assess diastolic dysfunction. Mildly dilated right ventricle. Left atrium mildly enlarged and right atrium also mildly enlarged. 1-2+ mitral valve insufficiency. RVSP of 39 mmHg. Moderate to severe aortic valve stenosis. * cardiology on board * on carvedilol * CXR did show small to moderate right pleural effusion. coumadin currently on hold in anticipation of thoracentesis, which patient has required in the past. * will repeat CXR tomorrow. 2. CARMEN on CKD: * Cr was 2.16 on admission, baseline is ~ 1.5 * Cr up to 2.2 today; lisinopril on hold * FeUrea is 62.1, indicating intrinsic renal disease * UA showed LE of 500, 0-5 wbc seen. No bacteria seen. * * 3. Lactic acidosis: resolved. was 2 on admisison; now down to 1.9 4. Chronic aFib: EKG showed Afib. on amiodarone and carvedilol. INR today is 2.4. coumadin on hold as under 1. 5. Diabetes mellitus: will hold metformin o/a of CARMEN. ISS. Accuchecks ACHS DVT prophylaxis: INR is therapeutic. coumadin on hold Code Visit Inpatient E&M: 03208 [facility] Hosp L3
[2018-12-21] MEDS: Dicyclomine 10 MG Capsule PO (16:21)
[2018-12-21] MEDS: Loratadine 10 MG Tablet PO (16:21)
[2018-12-21] MEDS: Magnesium Oxide 400 MG Tablet PO (16:22)
[2018-12-21] MEDS: Ascorbic Acid 500 MG Tablet 1000 MG PO (16:22)
[2018-12-21 16:26] LABS: Bedside Glucose 112 mg/dL (70-110)
[2018-12-21] MEDS: Amiodarone 200 MG Tablet 100 MG PO (21:36)
[2018-12-21] MEDS: amLODIPine 5 MG Tablet PO (21:37)
[2018-12-21 21:50] LABS: Bedside Glucose 124 mg/dL (70-110)
[2018-12-22] VITALS (14 sets, daily range): BP systolic 90–135; BP diastolic 54–77; PULSE 73–116; RESP 18; TEMP 36.7–37.1; O2SAT 90–98
[2018-12-22 06:15] LABS: Absolute Lymphocyte Count 0.82 X10^3/ul (0.83-4.51); Absolute Neutrophil Count 3.8 X10^3/uL (2.0-7.7); Basophil# 0.03 X10^3/uL; Basophil% 0.6 % (0-1); Eosinophil# 0.15 X10^3/uL; Eosinophils% 2.8 % (0-5); Hematocrit 30.5 % (40-54); Hemoglobin 9.6 g/dl (13.0-16.5); Lymphocyte # 0.82 X10^3/ul (4.0); Lymphocyte % 15.1 % (19-41); Mean Corp Hgb Conc 31.5 g/gl (32-36); Mean Corpuscular Hgb 25.5 pg (27.0-32.0); Mean Corpuscular Volume 80.9 fL (80-94); Mean Platelet Vol. 9.2 fl (6.2-12.0); Monocyte# 0.65 X10^3/uL; Monocyte% 11.9 % (0-10); Neutrophil # 3.77 X10^3/uL (2.7-7.7); Neutrophil % 69.2 % (47-70); Platelet Count 143 K/mm3 (150-450); RBC Distribution Width CV 19.6 % (11.6-14.6); RBC Distribution Width SD 54.5 fl (35.1-43.9); Red Blood Count 3.77 M/mm3 (4.6-6.2); White Blood Count 5.4 K/mm3 (4.4-11.0)
[2018-12-22 06:21] LABS: POSITIVE COUNT NO; POSITIVE DIFFERENTIAL NO; POSITIVE MORPHOLOGY NO
[2018-12-22 06:23] LABS: International Normalized Ratio 1.9; Prothrombin Time (Protime)PT. 21.6 SECONDS (11.7-14.9)
[2018-12-22 06:38] LABS: Anion Gap 10 (5-15); BUN 37 mg/dL (7-18); BUN/Creat Ratio 17.9 RATIO (10-20); Calcium,Total 8.3 mg/dL (8.5-10.1); Chloride 103 mmol/L (98-107); Creatinine, Serum 2.07 mg/dL (0.70-1.30); EST Glomerular Filtration Rate 33 mL/min (>60); Est Glom Filt Rate - Afr Amer 40 mL/min (>60); Estimated Creatinine Clearance 23.52 ml/min; Glucose 117 mg/dL (74-106); Potassium 3.5 mmol/L (3.5-5.1); Sodium Level 141 mmol/L (136-145)
[2018-12-22 06:46] LABS: Bedside Glucose 121 mg/dL (70-110)
--- NOTE | 2018-12-22 08:56 | PN.CARD_ITS ---
Subjectve: Patient doing very well this morning, laying down flat sleeping without difficulty using his nasal CPAP telemetry shows atrial fibrillation with contr olled ventricular response. Patient maintains negative fluid balance with IV Lasix therapy. Thoracic spinal chest x-ray demonstrated almost complete resolution of his pleural effusion on the right side. Objective: Vital Signs Temp Pulse Resp BP Pulse Ox 98.1 F 75 18 121/66 H 95 12/22/18 02:50 12/22/18 07:05 12/22/18 02:50 12/22/18 02:50 12/22/18 08:17 Oxygen Flow Rate (L/min) 3 Oxygen Delivery Method Room Air Weight: 182 lb 8.684 oz Body Mass Index (BMI) 31.5 Intake and Output for Last 24 Hours 12/20/18 12/21/18 12/22/18 23:59 23:59 23:59 Intake Total 545 / 545 790 / 790 120 / 120 Output Total 625 / 625 1500 / 1500 525 / 525 Balance -80 / -80 -710 / -710 -405 / -405 General: Awake, Alert, Oriented x 3 HEENT: PERRL, EOMI, Sclera Non Icteric Neck: Supple, Good ROM, No Lymph Node Enlargement Lungs: Diminished Right Base Cardiovascular: Irregular Rhythm, Normal S1, Normal S2, No Rubs, No Gallops Murmur Murmur: Grade 2/6, Holosystolic Vascular: No Carotid Bruits, Normal Femoral Pulses, Normal Radial Pulses, Normal Dorsalis Pedal Pulse, Normal Posterior Tibial Pulses Abdomen: Bowel Sounds Present, Soft, Non Tender, No HSM, No Organomegaly Extremities: No Cyanosis, No Clubbing, No edema Neurological: No Focal Motor or Sensory Deficit 12/22/18 06:00: WBC 5.4, RBC 3.77 L, Hgb 9.6 L, Hct 30.5 L, MCV 80.9, MCH 25.5 L , MCHC 31.5 L, RDW 19.6 H, RDW Differential 54.5 H, Plt Count 143 L, MPV 9.2, Immature Gran % (Auto) 0.400, Neut % (Auto) 69.2, Lymph % (Auto) 15.1 L, Rowan % (Auto) 11.9 H, Eos % (Auto) 2.8, Baso % (Auto) 0.6, Absolute Neuts (auto) 3.8, Total Counted Not Reportable 12/22/18 06:00: Sodium 141, Potassium 3.5, Chloride 103, Carbon Dioxide 28.0, Anion Gap 10, BUN 37 H, Creatinine 2.07 H, Est GFR (MDRD) Af Amer 40 L, Est GFR (MDRD) Non-Af 33 L, BUN/Creatinine Ratio 17.9, Glucose 117 H, Calcium 8.3 L 12/22/18 06:00: PT 21.6 H, INR 1.9 Rhythm: EKG: ECHO: Stress Test: Cardiac Cath: PCI: CT Surgery: Holter monitor: EPS: PPM: CXR: Chest CT Scan: Medical Necessity - Tobacco Use Smoking Status: Never smoker Assessment/Plan 1. Right pleural effusion: Patient's main issue appears to be his recurring right pleural effusion, as he has had several admissions for same. Although the patient had egophony yesterday on physical examination, with IV Lasix therapy, his effusion has markedly improved. He is now to the point where he is able to lay down flat and sleep without any difficulty albeit with nasal CPAP. Ultrasound evaluation of his pleural effusion was ordered this morning but given his INR 1.9 he would not be a candidate for thoracenteses unless his INR is 1.6. After reviewing his spinal x-rays, it appears his pleural effusion has markedly improved. At this point I would recommend holding on ultrasound evaluation or thoracenteses. Would recommend restarting his Coumadin therapy for his atrial fibrillation and keeping his INR between 2.0 and 2.5. Would recommend continuing amiodarone therapy as well and we will attempt DC cardioversion in a couple weeks time. In addition his echocardiogram shows intact LV function with an EF of 60%, RVSP of approximately 40-45 m of mercury, and 1-2+ mitral regurgitation which is most likely contributing to his pulmonary hypertension and pleural effusion. Would not recommend stress testing or repeat catheterization at this time. Once his thoracentesis is been completed, the patient may benefit from repeat DC cardioversion with amiodarone assistance as he would do better with normal sinus rhythm to preserve his cardiac output. At his age, I would not recommend pleurodesis at this time unless the patient continues to have recurrent right pleural effusions requiring multiple admissi ons. This would need to be done at an outside facility. In addition we will decrease his Coreg to 6.25 mg while he is normalizing his congestive heart failure exacerbation. As the patient is now able to lay down flat and his pleural effusion appears to be markedly improved, we will switch him from IV Lasix to p.o. Lasix 60 mg p.o. twice daily. Would recommend Lasix 60 mg p.o. twice daily upon discharge. The patient was on 60 mg p.o. daily at home. 2. Atrial fibrillation: Currently rate controlled with amiodarone and Coreg therapy. Recommend restarting Coumadin therapy. No plans for thoracenteses at this time.. INR today is 1.9. 3. Thank you very much for the opportunity to participate in the cardiac care of your patient. Patient may be discharged home if tolerating p.o. Lasix well. Code Visit Inpatient E&M: 44378 Subs Hosp L2
--- NOTE | 2018-12-22 09:04 | RAD_ITS ---
STUDY: X-RAY CHEST REASON FOR EXAM: Male, 83 years old. Shortness of breath. TECHNIQUE: PA and lateral views of the chest. COMPARISON: Comparison is made with prior examination dated December 20, 2018. FINDINGS: EKG electrodes are seen. Slight increase in the right pleural effusion with right basilar infiltration. Stable pleural parenchymal changes at the left lung base. The vascular congestion has improved. There is moderate cardiac enlargement. Normal mediastinum and monalisa. Normal visualized pulmonary arteries. There is atherosclerotic calcification of the aortic arch with tortuosity. There are diffuse degenerative changes of the visualized thoracic spine. Status post right shoulder replacement. There is no demonstrated abnormality of the visualized soft tissue structures of the upper abdomen. RAD/Chest PA and Lateral IMPRESSION: Slight increase in the right pleural effusion and right basilar infiltration. Stable pleural parenchymal changes at the left lung base. Electronically Signed: Justin Castro MD at 13:11 EST , Service support ,
[2018-12-22] MEDS: Carvedilol 6.25 MG Tablet PO (09:38)
[2018-12-22] MEDS: Tamsulosin HCl 0.4 MG Capsule PO (09:38)
[2018-12-22] MEDS: Pantoprazole Sodium 40 MG Tablet PO (09:38)
[2018-12-22] MEDS: Cyanocobalamin 500 MCG Tablet 1000 MCG PO (09:38)
[2018-12-22] MEDS: Furosemide 20 MG Tablet 60 MG PO ×2 (09:38→17:38)
[2018-12-22] MEDS: Galantamine Hydrobromide 4 MG Tablet PO (09:38)
[2018-12-22 12:15] LABS: Bedside Glucose 163 mg/dL (70-110)
[2018-12-22] MEDS: Magnesium Oxide 400 MG Tablet PO (12:16)
[2018-12-22] MEDS: Insulin Lispro 100 UNIT/ML INSULN.PEN SQ ×2 (12:16→17:35)
[2018-12-22] MEDS: Ascorbic Acid 500 MG Tablet 1000 MG PO (12:16)
--- NOTE | 2018-12-22 13:39 | PCM.PROGNOTE ---
<Andrade Meyers - Last Filed: 12/22/18 13:39> Patient Problems: Active and Suspected Problems (Last Reviewed 04/04/18 @ 15:08 by Shahla Juan) Atrial fibrillation (Acute) Pleural effusion (Acute) Renal insufficiency (Acute) Subjective: Pt is resting comfortably in chair at bedside. No CP. No SOB. Off O2. Tolerated laying flat today with nasal CPAP mask. He reports overall feeling much improved. - Physical Exam General: Alert, Oriented x3, Cooperative HEENT: Atraumatic, PERRLA, EOMI, Normocephalic Neck: Supple, No JVD, Negative Carotid Bruits Lungs: Diminished Cardiovascular: Regular rate, No murmurs Abdomen: Bowel Sounds Present, Soft, Non Tender Extremities: Capillary Refill Less than 3 Seconds, Edema Skin: No rashes, No breakdown Musculoskeletal: No Tenderness to Palpation of Joints or Extremities Neurological: Cranial nerves II-XII grossly intact Psych/Mental Status: Normal Affect, Appropriate, Alert and oriented to time, place, person, mood and affect Vital Signs Temp Pulse Resp BP Pulse Ox 98.2 F 73 18 135/77 H 94 12/22/18 08:50 12/22/18 11:32 12/22/18 09:44 12/22/18 09:44 12/22/18 09:44 Oxygen Flow Rate (L/min) 3 Oxygen Delivery Method Room Air Weight: 182 lb 8.684 oz Body Mass Index (BMI) 31.5 Intake and Output for Last 24 Hours 12/20/18 12/21/18 12/22/18 23:59 23:59 23:59 Intake Total 545 / 545 790 / 790 320 / 320 Output Total 625 / 625 1500 / 1500 975 / 975 Balance -80 / -80 -710 / -710 -655 / -655 Laboratory Tests Past 24 Hrs 12/22/18 12/22/18 12/22/18 06:00 06:00 06:00 WBC 5.4 RBC 3.77 L Hgb 9.6 L Hct 30.5 L MCV 80.9 MCH 25.5 L MCHC 31.5 L RDW 19.6 H RDW Differential 54.5 H Plt Count 143 L MPV 9.2 Immature Gran % (Auto) 0.400 Neut % (Auto) 69.2 Lymph % (Auto) 15.1 L Hayes % (Auto) 11.9 H Eos % (Auto) 2.8 Baso % (Auto) 0.6 Absolute Neuts (auto) 3.8 Absolute Lymphs (auto) 0.82 L Total Counted Not Reportable PT 21.6 H INR 1.9 Sodium 141 Potassium 3.5 Chloride 103 Carbon Dioxide 28.0 Anion Gap 10 BUN 37 H Creatinine 2.07 H Estim Creat Clear Calc 23.52 Est GFR (MDRD) Af Amer 40 L Est GFR (MDRD) Non-Af 33 L BUN/Creatinine Ratio 17.9 Glucose 117 H Calcium 8.3 L POC Glucose 12/22/18 12/22/18 12/21/18 12:10 06:42 21:44 POC Glucose 163 H 121 H 124 H 12/21/18 16:19 POC Glucose 112 H Medical Necessity - Tobacco Use Smoking Status: Never smoker Assessment/Plan All Active Problems (Last Reviewed 04/04/18 @ 15:08 by Shahla Juan) Community acquired bacterial pneumonia (Acute) Atrial fibrillation (Acute) Pleural effusion (Acute) Renal insufficiency (Acute) Chronic diastolic (congestive) heart failure (Acute) Chest pain (Resolved) Dehydration (Resolved) Hypomagnesemia (Resolved) 1. Acute on chronic diastolic congestive heart failure-shortness of breath is improved and patient is tolerating lying flat. Cardiology evaluated the patient this morning and felt that he can be transitioned to oral Lasix, 60 twice daily. He still has some lower extremity edema. His repeat chest x-ray demonstrated somewhat worsening of his pleural effusion per radiology. Will order thoracentesis for tomorrow. Continue to hold Coumadin. Is a recurrent oral effusion and has required thoracentesis in the past. Continue coreg, defer PEREZ-I with CARMEN. -Echocardiogram showed EF of 60%, 1-2+ MVI, RVSP of 39, 2+ TVI, moderate to severe aortic stenosis. -He has diuresed over 1 L, and his weight has decreased from 189-182 pounds. 2. CARMEN on CKD stage III-improved with diuresis. 3. Chronic atrial fibrillation-rate is controlled. Coumadin is being held for thoracentesis. on Amio and coreg. 4. Type 2 diabetes mellitus with obestiy-continue sliding scale insulin, metformin was discontinued at admission, with lactic acidosis an alternative agent should be considered at discharge. 5. BPH - flomax 6. Hx prostate CA 7. Hx RA and Osteoarthritis DVT ppx: lovenox DC planning: PTOT This patient was seen by Andrade Meyers PA-C under the supervision of Doctor Skyler. <Katlyn Holland - Last Filed: 12/22/18 15:24> - Physical Exam Vital Signs Temp Pulse Resp BP Pulse Ox 98.1 F 81 18 105/68 94 12/22/18 14:18 12/22/18 14:18 12/22/18 14:18 12/22/18 14:18 12/22/18 14:25 Oxygen Flow Rate (L/min) 2 Oxygen Delivery Method Nasal Cannula Weight: 182 lb 8.684 oz Body Mass Index (BMI) 31.5 Intake and Output for Last 24 Hours 12/20/18 12/21/18 12/22/18 23:59 23:59 23:59 Intake Total 545 / 545 790 / 790 320 / 320 Output Total 625 / 625 1500 / 1500 975 / 975 Balance -80 / -80 -710 / -710 -655 / -655 Laboratory Tests Past 24 Hrs 12/22/18 12/22/18 12/22/18 06:00 06:00 06:00 WBC 5.4 RBC 3.77 L Hgb 9.6 L Hct 30.5 L MCV 80.9 MCH 25.5 L MCHC 31.5 L RDW 19.6 H RDW Differential 54.5 H Plt Count 143 L MPV 9.2 Immature Gran % (Auto) 0.400 Neut % (Auto) 69.2 Lymph % (Auto) 15.1 L Hayes % (Auto) 11.9 H Eos % (Auto) 2.8 Baso % (Auto) 0.6 Absolute Neuts (auto) 3.8 Absolute Lymphs (auto) 0.82 L Total Counted Not Reportable PT 21.6 H INR 1.9 Sodium 141 Potassium 3.5 Chloride 103 Carbon Dioxide 28.0 Anion Gap 10 BUN 37 H Creatinine 2.07 H Estim Creat Clear Calc 23.52 Est GFR (MDRD) Af Amer 40 L Est GFR (MDRD) Non-Af 33 L BUN/Creatinine Ratio 17.9 Glucose 117 H Calcium 8.3 L POC Glucose 01/24/19 01/24/19 01/23/19 12:10 06:42 21:44 POC Glucose 163 H 121 H 124 H 12/21/18 16:19 POC Glucose 112 H Assessment/Plan Patient seen by Andrade Meyers PA-C under my supervision Patient seen and examined. He feels better today; shortness of breath has resolved. He denies fever, chills, palpitations, cough, chest pain, abdominal pain, diarrhea or vomiting. Review of systems otherwise negative. o/e: Vital Signs Height 5 ft 5 in Weight: 182 lb 8.684 oz Weight in Pounds 182.5 lbs Pulse Ox 94 Temperature 98.1 F Pulse Rate 81 Respiratory Rate 18 Blood Pressure [BP] 135/77 Blood Pressure 105/68 Blood Pressure Position [BP] Sitting Blood Pressure Position Semi-Fowlers General: Alert, Cooperative, No apparent distress HEENT: Atraumatic, PERRLA, EOMI, Normocephalic Oral: Moist Mucosa Neck: Supple, No JVD, Negative Carotid Bruits Lungs: - -mildly decreased breath sounds bibasally, no wheezing or crackles Cardiovascular: Regular rate, Regular Rhythm, Normal S1, Normal S2, No murmurs Abdomen: Bowel Sounds Present, Soft, Non Tender, Non-Distended, No Hepato-splenomegaly Extremities: - - 1+ bilateral LE pitting pedal edema Skin: No rashes, No breakdown Musculoskeletal: No Tenderness to Palpation of Joints or Extremities Lymphatic: No Cervical, Supraclavicular, or Inguinal Adenopathy Neurological: Cranial nerves II-XII grossly intact, Neuro grossly intact, Motor Exam 5/5 strength throughout Psych/Mental Status: Normal Affect, Appropriate, Alert and oriented to time, place, person, mood and affect Repeat CXR today showed slight increased in right pleural effusion and right basilar infiltration. Stable pleural parenchymal changes at left lung base.Plan is to continue diuresing for acute diastolic heart failure. For right sided thoracentesis o/a of right pleural effusion. continue holding coumadin in interim until he gets thoracentesis. Currently on lovenox for DVT prophylaxis. Rest of management as per Andrade Meyers PA-C's note, which I have reviewed and agreed with. Code Visit Inpatient E&M: [id number] Subs Hosp L3
--- NOTE | 2018-12-22 14:04 | NURSING ---
U/S GUIDED THORACETISIS ORDERED. U/S TECH STATES OK TO GIVE LOVENOX TODAY D/T PROCEDURE WILL BE DONE TOMORROW WHICH WILL BE MORE THAN 12 HRS BETWEEN LOVENOX AND PROCEDURE. INFORMED GUILLERMO RUCKER.
[2018-12-22] MEDS: Enoxaparin 30 MG/0.3 ML Syringe SC (14:29)
--- NOTE | 2018-12-22 16:02 | CASEMGMT ---
Patient brought in a copy of his healthcare POA and healthcare LW. They are in his chart. Camila JANG MSW
[2018-12-22] MEDS: Dicyclomine 10 MG Capsule PO (17:38)
[2018-12-22] MEDS: Loratadine 10 MG Tablet PO (17:38)
[2018-12-22 17:46] LABS: Bedside Glucose 165 mg/dL (70-110)
[2018-12-23] VITALS (8 sets, daily range): BP systolic 100–133; BP diastolic 51–76; PULSE 73–90; RESP 16–18; TEMP 36.9–37.2; O2SAT 91–97
[2018-12-23 00:06] LABS: Bedside Glucose 127 mg/dL (70-110)
[2018-12-23] MEDS: Amiodarone 200 MG Tablet 100 MG PO (01:10)
[2018-12-23] MEDS: Galantamine Hydrobromide 4 MG Tablet PO ×2 (01:13→10:28)
[2018-12-23 06:26] LABS: Anion Gap 9 (5-15); BUN 36 mg/dL (7-18); BUN/Creat Ratio 17.3 RATIO (10-20); Calcium,Total 8.2 mg/dL (8.5-10.1); Chloride 106 mmol/L (98-107); Creatinine, Serum 2.08 mg/dL (0.70-1.30); EST Glomerular Filtration Rate 33 mL/min (>60); Est Glom Filt Rate - Afr Amer 39 mL/min (>60); Estimated Creatinine Clearance 23.41 ml/min; Glucose 116 mg/dL (74-106); Potassium 3.7 mmol/L (3.5-5.1); Sodium Level 144 mmol/L (136-145)
[2018-12-23 06:32] LABS: Absolute Lymphocyte Count 1.01 X10^3/ul (0.83-4.51); Absolute Neutrophil Count 3.5 X10^3/uL (2.0-7.7); Basophil# 0.06 X10^3/uL; Basophil% 1.1 % (0-1); Eosinophil# 0.18 X10^3/uL; Eosinophils% 3.4 % (0-5); Hematocrit 31.3 % (40-54); Hemoglobin 9.8 g/dl (13.0-16.5); Lymphocyte # 1.01 X10^3/ul (4.0); Lymphocyte % 18.8 % (19-41); Mean Corp Hgb Conc 31.3 g/gl (32-36); Mean Corpuscular Hgb 25.7 pg (27.0-32.0); Mean Corpuscular Volume 81.9 fL (80-94); Mean Platelet Vol. 9.4 fl (6.2-12.0); Monocyte% 11.2 % (0-10); Neutrophil % 65.3 % (47-70); Platelet Count 141 K/mm3 (150-450); RBC Distribution Width CV 19.8 % (11.6-14.6); RBC Distribution Width SD 58.5 fl (35.1-43.9); Red Blood Count 3.82 M/mm3 (4.6-6.2); White Blood Count 5.4 K/mm3 (4.4-11.0)
[2018-12-23 06:34] LABS: POSITIVE COUNT NO; POSITIVE DIFFERENTIAL NO; POSITIVE MORPHOLOGY NO
[2018-12-23 07:06] LABS: Bedside Glucose 123 mg/dL (70-110)
[2018-12-23 08:41] LABS: International Normalized Ratio 1.6; Partial Thromboplast Time 36.8 Seconds (24.1-36.2); Prothrombin Time (Protime)PT. 19.2 SECONDS (11.7-14.9)
--- NOTE | 2018-12-23 09:02 | PCM.PN.CARD ---
Subjectve: Patient awaiting review by ultrasound to determine if he requires a therapeutic right-sided thoracentesis. INR is 1.6 today. Chest x-ray yesterday showed about the same right-sided pleural effusion although patient was able to lay down flat, and sleep without any difficulty or orthopnea. No chest pain symptoms. Physical exam shows egophony about one third the way up the right base. Patient switch from IV Lasix to p.o. Lasix yesterday. Objective: Vital Signs Temp Pulse Resp BP Pulse Ox 98.8 F 73 18 117/67 95 12/23/18 04:06 12/23/18 07:02 12/23/18 04:06 12/23/18 04:06 12/23/18 07:45 Oxygen Flow Rate (L/min) 2 Oxygen Delivery Method Room Air Weight: 184 lb 11.958 oz Body Mass Index (BMI) 31.5 Intake and Output for Last 24 Hours 12/21/18 12/22/18 12/23/18 23:59 23:59 23:59 Intake Total 790 / 790 820 / 820 200 / 200 Output Total 1500 / 1500 1275 / 1275 1000 / 1000 Balance -710 / -710 -455 / -455 -800 / -800 General: Awake, Alert, Oriented x 3 HEENT: PERRL, EOMI, Sclera Non Icteric Neck: Supple, Good ROM, No Lymph Node Enlargement Lungs: Diminished Right Base, Rales - Right Base Cardiovascular: Regular Rhythm, Normal S2, No Rubs, No Gallops Murmur Murmur: Grade 2/6, Holosystolic Vascular: No Carotid Bruits, Normal Femoral Pulses, Normal Radial Pulses, Normal Dorsalis Pedal Pulse, Normal Posterior Tibial Pulses Abdomen: Bowel Sounds Present, Soft, Non Tender, No HSM, No Organomegaly Extremities: No Cyanosis, No Clubbing, No edema Neurological: No Focal Motor or Sensory Deficit 12/23/18 05:40: WBC 5.4, RBC 3.82 L, Hgb 9.8 L, Hct 31.3 L, MCV 81.9, MCH 25.7 L, MCHC 31.3 L, RDW 19.8 H, RDW Differential 58.5 H, Plt Count 141 L, MPV 9.4, Immature Gran % (Auto) 0.200, Neut % (Auto) 65.3, Lymph % (Auto) 18.8 L, [place] % (Auto) 11.2 H, Eos % (Auto) 3.4, Baso % (Auto) 1.1 H, Absolute Neuts (auto) 3.5, Total Counted Not Reportable 12/23/18 05:40: Sodium 144, Potassium 3.7, Chloride 106, Carbon Dioxide 29.0, Anion Gap 9, BUN 36 H, Creatinine 2.08 H, Est GFR (MDRD) Af Amer 39 L, Est GFR (MDRD) Non-Af 33 L, BUN/Creatinine Ratio 17.3, Glucose 116 H, Calcium 8.2 L 12/23/18 05:40: PT 19.2 H, INR 1.6, APTT 36.8 H Rhythm: EKG: ECHO: Stress Test: Cardiac Cath: PCI: CT Surgery: Holter monitor: EPS: PPM: CXR: Chest CT Scan: Medical Necessity - Tobacco Use Smoking Status: Never smoker Assessment/Plan 1. Right pleural effusion: Patient's main issue appears to be his recurring right pleural effusion, as he has had several admissions for same. Although the patient had egophony yesterday on physical examination, with IV Lasix therapy, his effusion has improved, at least by physical exam, although chest x-ray shows continual right-sided pleural effusion. He is now to the point where he is able to lay down flat and sleep without any difficulty albeit with nasal CPAP. Although his effusion appears to be improving clinically, and nonetheless is still present by chest x-ray. I believe it is reasonable to have it evaluated with ultrasound today, now that his INR is 1.6, and to do a therapeutic thoracentesis to assist with reexpansion of his right lung. If this happens again, the patient may require transfer to a tertiary care hospital for possible pleurodesis. In addition his echocardiogram shows intact LV function with an EF of 60%, RVSP of approximately 40-45 m of mercury, and 1-2+ mitral regurgitation which is most likely contributing to his pulmonary hypertension and pleural effusion. Would not recommend stress testing or repeat catheterization at this time. Once his thoracentesis is been completed, the patient may benefit from repeat DC cardioversion with amiodarone assistance as he would do better with normal sinus rhythm to preserve his cardiac output. At his age, I would not recommend pleurodesis at this time unless the patient continues to have recurrent right pleural effusions requiring multiple admissions. This would need to be done at an outside facility. In addition we will decrease his Coreg to 6.25 mg while he is normalizing his congestive heart failure exacerbation. As the patient is now able to lay down flat and his pleural effusion appears to be markedly improved, we will switch him from IV Lasix to p.o. Lasix 60 mg p.o. twice daily. Would recommend Lasix 60 mg p.o. twice daily upon discharge. The patient was on 60 mg p.o. daily at home. 2. Atrial fibrillation: Currently rate controlled with amiodarone and Coreg therapy. Ultrasound evaluation pending. If the patient receives a thoracentesis, would recommend restarting his Coumadin therapy tomorrow. Once his INR is between 2.0 and 2.5 for 4 consecutive weeks, we will consider the option of DC cardioversion to maintain his atrial kick. 3. Thank you very much for the opportunity to participate in the cardiac care of your patient. Discussed with Andrade Meyers. Code Visit Inpatient E&M: [id number] Subs Hosp L2
--- NOTE | 2018-12-23 10:10 | RAD_ITS ---
STUDY: X-RAY CHEST REASON FOR EXAM: Male, 83 years old. The patient is status post right thoracentesis. TECHNIQUE: AP inspiration and expiration views. COMPARISON: Comparison is made with prior study dated December 22, 2018. FINDINGS: The patient is status post right thoracentesis. There is no evidence of pneumothorax. Small residual right pleural effusion with underlying atelectasis. RAD/Chest Insp/Exp 2 View IMPRESSION: Status post right thoracentesis. There is no evidence of pneumothorax. Electronically Signed: Justin Castro MD at 10:30 EST , Service support ,
[2018-12-23] MEDS: Cyanocobalamin 500 MCG Tablet 1000 MCG PO (10:28)
[2018-12-23] MEDS: Tamsulosin HCl 0.4 MG Capsule PO (10:28)
[2018-12-23] MEDS: Furosemide 20 MG Tablet 60 MG PO (10:28)
[2018-12-23] MEDS: Pantoprazole Sodium 40 MG Tablet PO (10:28)
[2018-12-23] MEDS: Carvedilol 6.25 MG Tablet PO (10:29)
--- NOTE | 2018-12-23 10:51 | PCM.DC ---
- Discharge Diagnoses Current Active Problems: Current Active and Chronic Problems (Last Reviewed 04/04/18 @ 15:08 by Shahla Juan) Atrial fibrillation (Acute) Valvular heart disease (Chronic) Pleural effusion (Acute) Renal insufficiency (Acute) You will use the following diet at home:: Calorie/Carbohydrate Controlled (specify 1200, 1400, etc) - 1800 ida / day, Cardiac Your food should be the consistency of: Regular Your liquids should be the consistency of: Regular/Thin Discharge Activity: Return to Normal Activity Allergies/Adverse Reactions: Allergies cimetidine HCl [From Tagamet] Allergy (Verified 12/20/18 11:36) Rash ciprofloxacin [From Cipro] Allergy (Verified 12/20/18 11:36) Rash amoxicillin trihydrate [From Augmentin] Adverse Reaction (Verified 12/20/18 11:36) Abd cramps/diarrhea cefdinir [From Omnicef] Adverse Reaction (Verified 12/20/18 11:36) Diarrhea indomethacin sodium [From Indocin] Adverse Reaction (Verified 12/20/18 11:36) Nausea memantine HCl [From Namenda] Adverse Reaction (Verified 12/20/18 11:36) dizziness potassium clavulanate [From Augmentin] Adverse Reaction (Verified 12/20/18 11:36) Abd cramps/diarrhea sitagliptin phosphate [From Januvia] Adverse Reaction (Verified 12/20/18 11:36) Nausea Medications to take at Discharge Cholecalciferol (Vitamin D3) [Vitamin D3] 1,000 unit PO DAILY 12/25/13 Aspirin [Aspirin, Baby] 81 mg PO QHS 11/17/14 Cyanocobalamin [Vitamin B12] 1,000 mcg PO DAILY@0800 11/17/14 Pantoprazole Sodium [Protonix] 40 mg PO DAILY 11/17/14 Dicyclomine HCl [Bentyl] 10 mg PO DINNER 03/15/17 Loratadine 10 mg PO DINNER 03/15/17 magnesium oxide 400 mg (241.3 mg magnesium) tablet 400 mg PO LUNCH 12/30/17 warfarin 2 mg tablet 2 mg PO SUTH 12/30/17 warfarin 2 mg tablet 4 mg PO MOTUWEFRSA 12/30/17 amiodarone 200 mg tablet 100 mg PO QHS #45 tab 08/04/18 Amlodipine [Norvasc] 5 mg PO QHS 12/20/18 Ascorbic Acid [Vitamin C] 1,000 mg PO DAILY 12/20/18 Galantamine HBr 8 mg PO DAILY 12/20/18 Tamsulosin HCl [Flomax] 0.4 mg PO DAILY 12/20/18 Carvedilol [Coreg (Beta Hemant)] 6.25 mg PO BID #60 tablet 12/23/18 Fluticasone 0.05% [Flonase Nasal [place]] 1 spray NASAL BID #1 nasal.sry 12/23/18 Furosemide [Lasix] 60 mg PO BID@1000,1800 #180 tablet 12/23/18 The following prescriptions were given: Carvedilol [Coreg (Beta Hemant)] 6.25 mg PO BID #60 tablet Fluticasone 0.05% [Flonase Nasal [place]] 1 spray NASAL BID #1 nasal.sry Furosemide [Lasix] 60 mg PO BID@1000,1800 #180 tablet Orders to be completed after discharge: Basic Metabolic Profile (BMP) Time Frame: 1 Week, Location: Laboratory Prothrombin Time w/INR Time Frame: 2 Days, Location: Laboratory Primary Care Physician: Pedro Marie MD [Primary Care Provider] - Please follow up with your Primary Care Physician in: 1-2 weeks Test Results: Test results from this visit will be discussed in further detail at your follow-up appointment, if applicable. Please Follow Up With: Ozzie Porter MD When: 2 weeks Proposed Discharge Date: 12/23/18
--- NOTE | 2018-12-23 11:02 | CASEMGMT ---
This RN CM to bedside to discuss discharge plan with pt/. Pt/ decline HHC and OP therapy at this time. Pt/ are agreeable to CCN referral at this time. Call to Gagandeep at [facility] and aware of referral at this time, voices understanding. Referral order placed at this time. SStaten RN CM
[2018-12-23 11:11] LABS: Bedside Glucose 168 mg/dL (70-110)
[2018-12-23] MEDS: Magnesium Oxide 400 MG Tablet PO (12:14)
[2018-12-23] MEDS: Ascorbic Acid 500 MG Tablet 1000 MG PO (12:14)
[2018-12-23] MEDS: Insulin Lispro 100 UNIT/ML INSULN.PEN SQ (12:14)
--- NOTE | 2018-12-23 13:37 | US_ITS ---
PROCEDURE: ULTRASOUND GUIDED THORACENTESIS. DATE: June 22, 2019. INDICATION: Male, 83 years old. Right pleural effusion PHYSICIAN: Justin Castro M.D. PROCEDURE: The risks, benefits, and alternatives to the procedure were explained to the patient. The specific risks of bleeding, infection, and pneumothorax requiring chest tube insertion were discussed and accepted. Written informed consent was obtained. Ultrasonographic evaluation of the right lower pleural space was carried out. An adequate pocket was identified. The patient was placed in the sitting, upright position. The overlying skin was prepped and draped in sterile fashion. 1% lidocaine was administered subcutaneously for local anesthesia. Under ultrasound guidance, a 5 Romanian thoracentesis needle/catheter system was advanced into the right posterior lower pleural fluid collection. Approximately 500 mL of crescencio-colored fluid was drained. The catheter was removed, and a sterile dressing was applied. The patient tolerated the procedure well. A chest x-ray was ordered. US/Thoracentesis W US IMPRESSION: Ultrasound-guided right thoracentesis. Electronically Signed: Justin Castro MD at 10:55 EST , Service support ,
--- NOTE | 2018-12-23 15:31 | PCM.DC.SUM ---
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 Robertson [facility]; 01/29/[address] 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) Hypertension (Chronic) Chronic renal failure, stage 3 (moderate) (Chronic) History of anxiety disorder (Chronic) Generalized osteoarthritis (Chronic) History of gout (Chronic) Mild dementia (Chronic) Rheumatoid arthritis (Chronic) Diabetes mellitus, type II (Chronic) Generalized weakness (Chronic) History of prostate cancer (Chronic) Status post radiotherapy Anemia of chronic disease (Chronic) due to CRF and RA PAF (paroxysmal atrial fibrillation) (Chronic) Hospital Course and Treatment Imaging Results: 12/23/18 10:10 Chest Insp/Exp 2 View [RAD] Urgent 12/23/18 13:37 Thoracentesis W US [US] Routine 500 cc removed RAD/Chest 1 View (Portable) IMPRESSION: Findings in keeping with a mild degree of CHF with bilateral pleural effusions worse on the right side with bibasilar atelectasis. Echo: Interpretation Summary The study was technically difficult. Left ventricular systolic function is normal. The estimated ejection fraction is 60 %. Mildly dilated right ventricle. The left atrium is mildly enlarged. The right atrium is mildly enlarged. There is mild mitral annular calcification. Mild diffuse mitral valve thickening. Mild-Moderate (1-2+) mitral valve insufficiency. Moderate (2+) tricuspid valve insufficiency. Moderate to severe aortic valve stenosis. Right ventricular systolic pressure estimated to be 39 mmHg. Unable to assess diastolic dysfunction. RAD/Thoracic Spine 3 Views IMPRESSION: Multilevel disc space narrowing and anterior kissing osteophytes. Ankylosing spondylitis should be ruled out. RAD/Lumbar Spine 2 or 3 Views IMPRESSION: Degenerative changes of the spine, as detailed above. Consults: German : cardiology Operations: None Procedures: None, 2-D Echocardiogram Summary of Care Provided: Hospital Course: The patient is a 83 year old M past medical history of diastolic CHF who presented to the emergency room with increased shortness of breath and lower extremity edema. He has required outpatient thoracentesis in the past. He had recently been started on increased Lasix per his PCP however he regardless became more short of breath and more edematous. His orthopnea and PND increased as well. He came to the emergency room a chest x-ray demonstrated right greater than left bilateral pleural effusions. His creatinine was elevated 2.16 with a baseline of about 1.5. His lactic acid was also elevated. He was admitted to the PCU and started on IV Lasix. As he had AK I and lactic acidosis metformin was discontinued. Cardiology was consulted. Patient responded very well to IV Lasix. He was able to tolerate laying flat on his nasal CPAP. Echo showed preserved EF. His symptoms continued to improve and he was weaned off oxygen. He had a repeat chest x-ray which demonstrated increased pleural effusion despite his improvement in symptoms. He was sent for thoracentesis and 500 cc were removed. Following the thoracentesis he had no issues, no shortness of breath, no chest pain, no pleurisy, and desire to go home. 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 Porter in 2 weeks. His home Lasix dose was increased to 60 twice daily. He will need a BMP in 1 week. [facility] will check up on him as an outpatient. This patient was seen by Andrade Meyers PA-C under the supervision of Doctor Holland. [] - Physical Exam General: Alert, Oriented x3, Cooperative HEENT: Atraumatic, PERRLA, EOMI, Normocephalic Neck: Supple, No JVD, Negative Carotid Bruits Lungs: Clear to auscultation, Normal air movement Cardiovascular: Regular rate, No murmurs Abdomen: Bowel Sounds Present, Soft, Non Tender Extremities: No edema, Capillary Refill Less than 3 Seconds Skin: No rashes, No breakdown Musculoskeletal: No Tenderness to Palpation of Joints or Extremities Neurological: Cranial nerves II-XII grossly intact Psych/Mental Status: Normal Affect, Appropriate, Alert and oriented to time, place, person, mood and affect Vital Signs Temp Pulse Resp BP Pulse Ox 98.4 F 78 16 130/76 H 96 12/23/18 09:20 12/23/18 10:59 12/23/18 10:19 12/23/18 10:19 12/23/18 09:20 Oxygen Flow Rate (L/min) 2 Oxygen Delivery Method [3] Room Air Oxygen Delivery Method [2] Room Air Oxygen Delivery Method [1 ( Room Air Initial Baseline)] Oxygen Delivery Method Room Air Weight: 184 lb 11.958 oz Body Mass Index (BMI) 31.5 Intake and Output for Last 24 Hours 12/21/18 12/22/18 12/23/18 23:59 23:59 23:59 Intake Total 790 / 790 820 / 820 560 / 560 Output Total 1500 / 1500 1275 / 1275 2300 / 2300 Balance -710 / -710 -455 / -455 -1740 / -1740 Laboratory Tests Past 24 Hrs 12/23/18 12/23/18 12/23/18 05:40 05:40 05:40 WBC 5.4 RBC 3.82 L Hgb 9.8 L Hct 31.3 L MCV 81.9 MCH 25.7 L MCHC 31.3 L RDW 19.8 H RDW Differential 58.5 H Plt Count 141 L MPV 9.4 Immature Gran % (Auto) 0.200 Neut % (Auto) 65.3 Lymph % (Auto) 18.8 L Simpson % (Auto) 11.2 H Eos % (Auto) 3.4 Baso % (Auto) 1.1 H Absolute Neuts (auto) 3.5 Absolute Lymphs (auto) 1.01 Total Counted Not Reportable PT 19.2 H INR 1.6 APTT 36.8 H Sodium 144 Potassium 3.7 Chloride 106 Carbon Dioxide 29.0 Anion Gap 9 BUN 36 H Creatinine 2.08 H Estim Creat Clear Calc 23.41 Est GFR (MDRD) Af Amer 39 L Est GFR (MDRD) Non-Af 33 L BUN/Creatinine Ratio 17.3 Glucose 116 H Calcium 8.2 L POC Glucose 12/23/18 12/23/18 12/22/18 11:05 06:59 23:53 POC Glucose 168 H 123 H 127 H 12/22/18 17:35 POC Glucose 165 H Discharge Diet: Low fat/ Low Cholesterol, 1800 Calorie Control Diet, 2000 mg Sodium Diet Discharge Activity: Return to Normal Activity Home Medications: Medications to take at Discharge Cholecalciferol (Vitamin D3) [Vitamin D3] 1,000 unit PO DAILY 12/25/13 Aspirin [Aspirin, Baby] 81 mg PO QHS 11/17/14 Cyanocobalamin [Vitamin B12] 1,000 mcg PO DAILY@0800 11/17/14 Pantoprazole Sodium [Protonix] 40 mg PO DAILY 11/17/14 Dicyclomine HCl [Bentyl] 10 mg PO DINNER 03/15/17 Loratadine 10 mg PO DINNER 03/15/17 magnesium oxide 400 mg (241.3 mg magnesium) tablet 400 mg PO LUNCH 12/30/17 warfarin 2 mg tablet 2 mg PO SUTH 12/30/17 warfarin 2 mg tablet 4 mg PO MOTUWEFRSA 12/30/17 amiodarone 200 mg tablet 100 mg PO QHS #45 tab 08/04/18 Amlodipine [Norvasc] 5 mg PO QHS 12/20/18 Ascorbic Acid [Vitamin C] 1,000 mg PO DAILY 12/20/18 Galantamine HBr 8 mg PO DAILY 12/20/18 Tamsulosin HCl [Flomax] 0.4 mg PO DAILY 12/20/18 Carvedilol [Coreg (Beta Hemant)] 6.25 mg PO BID #60 tablet 12/23/18 Fluticasone 0.05% [Flonase Nasal [place]] 1 spray NASAL BID #1 nasal.sry 12/23/18 Furosemide [Lasix] 60 mg PO BID@1000,1800 #180 tablet 12/23/18 Following Prescrptions Were Given to Patient: Carvedilol [Coreg (Beta Hemant)] 6.25 mg PO BID #60 tablet Fluticasone 0.05% [Flonase Nasal [place]] 1 spray NASAL BID #1 nasal.sry Furosemide [Lasix] 60 mg PO BID@1000,1800 #180 tablet Other Amb Orders: Basic Metabolic Profile (BMP) Time Frame: 1 Week, Location: Laboratory Prothrombin Time w/INR Time Frame: 2 Days, Location: Laboratory Primary Care Physician: Pedro Marie MD [Primary Care Provider] - Please follow up with your Primary Care Physician in: 1-2 weeks Please Follow Up With: Ozzie Porter MD When: 2 weeks Please Follow Up With: Pedro Marie MD Disposition: Home Minutes spent on discharge:: 35 Patient Condition:: Stable Medical Necessity - Tobacco Use Smoking Status: Never smoker Meaningful Use Info Meaningful Use Diagnoses (Choose all that apply): CHF - CHF PEREZ/ARB ordered at discharge?: No Reason PEREZ/ARB not ordered?: Worsening renal disease Documented LVEF (%): 60 <Katlyn Holland - Last Filed: 12/23/18 16:09> Discharge Date and Diagnosis - Secondary Discharge Diagnosis Chronic Problems (Last Reviewed 04/04/18 @ 15:08 by Shahla Juan) Valvular heart disease (Chronic) Nonrheumatic mitral (valve) insufficiency (Chronic) Non-rheumatic tricuspid valve insufficiency (Chronic) Non-rheumatic aortic stenosis (Chronic) History of left heart catheterization (Chronic ~01/2014) 05/02/[address] Robertson [facility]; 01/29/[address] 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) Hypertension (Chronic) Chronic renal failure, stage 3 (moderate) (Chronic) History of anxiety disorder (Chronic) Generalized osteoarthritis (Chronic) History of gout (Chronic) Mild dementia (Chronic) Rheumatoid arthritis (Chronic) Diabetes mellitus, type II (Chronic) Generalized weakness (Chronic) History of prostate cancer (Chronic) Status post radiotherapy Anemia of chronic disease (Chronic) due to CRF and RA PAF (paroxysmal atrial fibrillation) (Chronic) Hospital Course and Treatment Imaging Results: 12/23/18 10:10 Chest Insp/Exp 2 View [RAD] Urgent 12/23/18 13:37 Thoracentesis W US [US] Routine Summary of Care Provided: Patient seen by Andrade Meyers PA-C under my supervision The patient is an 83 year old M with an extensive past medical history which includes chronic diastolic heart failure. He was admitted on 12/20/2017 with a complaint of worsening shortness of breath and lower extremity edema. Patient's Lasix dose had been adjusted several times prior to admission on account of worsening edema. Was initially increased to 2 tablets and lower extremity swelling and shortness of breath improved. Symptoms recurred again after he went down to his regular 1 tablet and it was increased again to 1-1/2 tablets. Symptoms improved and he went back to his 1 tablet but then again he became more short of breath with assisted lower extremity edema, orthopnea and PND. Patient had a had a history of thoracentesis on account of pleural effusion. On admission, he was saturating at 95% on 2 L of oxygen chest x-ray showed small to moderate right pleural effusion with underlying atelectasis. He was admitted and managed for acute diastolic CHF and AK I. He was started on IV Lasix for diuresis. Shortness of breath resolved he was weaned off of oxygen. However repeat chest x-ray showed increasing right pleural effusion. He therefore had repeated thoracentesis on 12/23/2018. He remained stable and was discharged home. His home Lasix dose was increased to 60 mg twice daily. H his Coumadin was resumed and he is to have follow-up INR in 2-3 days for target INR of 2-3. Patient seen and examined prior to discharge. He had no complaints and felt well. He denied any fever, chills, cough or chest pain, shortness of breath, abdominal pain, diarrhea vomiting. He was at home and felt very comfortable. Labs and vitals reviewed. Home medications reviewed on consult. o/e: Vital Signs Height 5 ft 5 in Weight: 184 lb 11.958 oz Weight in Pounds 184.7 lbs Pulse Ox 96 Temperature 98.4 F Pulse Rate [3] 84 Pulse Rate [2] 90 Pulse Rate [1 (Initial 87 Baseline)] Pulse Rate 78 Respiratory Rate [3] 16 Respiratory Rate [2] 16 Respiratory Rate [1 (Initial 16 Baseline)] Respiratory Rate 16 Blood Pressure [BP] 90/54 Blood Pressure [3] 119/70 Blood Pressure [2] 133/76 Blood Pressure [1 (Initial 130/76 Baseline)] Blood Pressure 126/69 Blood Pressure Position [BP] Right Lateral Blood Pressure Position Sitting [] General: Alert, Cooperative, No apparent distress HEENT: Atraumatic, PERRLA, EOMI, Normocephalic Oral: Moist Mucosa Neck: Supple, No JVD, Negative Carotid Bruits Lungs: - -mildly decreased breath sounds bibasally, no wheezing or crackles Cardiovascular: Regular rate, Regular Rhythm, Normal S1, Normal S2, No murmurs Abdomen: Bowel Sounds Present, Soft, Non Tender, Non-Distended, No Hepato-splenomegaly Extremities: - - 1+ bilateral LE pitting pedal edema Skin: No rashes, No breakdown Musculoskeletal: No Tenderness to Palpation of Joints or Extremities Lymphatic: No Cervical, Supraclavicular, or Inguinal Adenopathy Neurological: Cranial nerves II-XII grossly intact, Neuro grossly intact, Motor Exam 5/5 strength throughout Psych/Mental Status: Normal Affect, Appropriate, Alert and oriented to time, place, person, mood and affect I have reviewed Andrade Meyers's note and agree with it. - Physical Exam Vital Signs Temp Pulse Resp BP Pulse Ox 98.4 F 78 16 130/76 H 96 12/23/18 09:20 12/23/18 10:59 12/23/18 10:19 12/23/18 10:19 12/23/18 09:20 Oxygen Flow Rate (L/min) 2 Oxygen Delivery Method [3] Room Air Oxygen Delivery Method [2] Room Air Oxygen Delivery Method [1 ( Room Air Initial Baseline)] Oxygen Delivery Method Room Air Weight: 184 lb 11.958 oz Body Mass Index (BMI) 31.5 Intake and Output for Last 24 Hours 12/21/18 12/22/18 12/23/18 23:59 23:59 23:59 Intake Total 790 / 790 820 / 820 560 / 560 Output Total 1500 / 1500 1275 / 1275 2300 / 2300 Balance -710 / -710 -455 / -455 -1740 / -1740 Laboratory Tests Past 24 Hrs 12/23/18 12/23/18 12/23/18 05:40 05:40 05:40 WBC 5.4 RBC 3.82 L Hgb 9.8 L Hct 31.3 L MCV 81.9 MCH 25.7 L MCHC 31.3 L RDW 19.8 H RDW Differential 58.5 H Plt Count 141 L MPV 9.4 Immature Gran % (Auto) 0.200 Neut % (Auto) 65.3 Lymph % (Auto) 18.8 L Simpson % (Auto) 11.2 H Eos % (Auto) 3.4 Baso % (Auto) 1.1 H Absolute Neuts (auto) 3.5 Absolute Lymphs (auto) 1.01 Total Counted Not Reportable PT 19.2 H INR 1.6 APTT 36.8 H Sodium 144 Potassium 3.7 Chloride 106 Carbon Dioxide 29.0 Anion Gap 9 BUN 36 H Creatinine 2.08 H Estim Creat Clear Calc 23.41 Est GFR (MDRD) Af Amer 39 L Est GFR (MDRD) Non-Af 33 L BUN/Creatinine Ratio 17.3 Glucose 116 H Calcium 8.2 L POC Glucose 12/23/18 12/23/18 12/22/18 11:05 06:59 23:53 POC Glucose 168 H 123 H 127 H 12/22/18 17:35 POC Glucose 165 H Code Visit Inpatient E&M: 41366 Disch Hosp
--- NOTE | 2018-12-23 15:37 | DS.PCM_ITS ---
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 Robertson [facility]; 01/29/[address] 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) Hypertension (Chronic) Chronic renal failure, stage 3 (moderate) (Chronic) History of anxiety disorder (Chronic) Generalized osteoarthritis (Chronic) History of gout (Chronic) Mild dementia (Chronic) Rheumatoid arthritis (Chronic) Diabetes mellitus, type II (Chronic) Generalized weakness (Chronic) History of prostate cancer (Chronic) Status post radiotherapy Anemia of chronic disease (Chronic) due to CRF and RA PAF (paroxysmal atrial fibrillation) (Chronic) Hospital Course and Treatment Imaging Results: 12/23/18 10:10 Chest Insp/Exp 2 View [RAD] Urgent 12/23/18 13:37 Thoracentesis W US [US] Routine 500 cc removed RAD/Chest 1 View (Portable) IMPRESSION: Findings in keeping with a mild degree of CHF with bilateral pleural effusions worse on the right side with bibasilar atelectasis. Echo: Interpretation Summary The study was technically difficult. Left ventricular systolic function is normal. The estimated ejection fraction is 60 %. Mildly dilated right ventricle. The left atrium is mildly enlarged. The right atrium is mildly enlarged. There is mild mitral annular calcification. Mild diffuse mitral valve thickening. Mild-Moderate (1-2+) mitral valve insufficiency. Moderate (2+) tricuspid valve insufficiency. Moderate to severe aortic valve stenosis. Right ventricular systolic pressure estimated to be 39 mmHg. Unable to assess diastolic dysfunction. RAD/Thoracic Spine 3 Views IMPRESSION: Multilevel disc space narrowing and anterior kissing osteophytes. Ankylosing spondylitis should be ruled out. RAD/Lumbar Spine 2 or 3 Views IMPRESSION: Degenerative changes of the spine, as detailed above. Consults: German : cardiology Operations: None Procedures: None, 2-D Echocardiogram Summary of Care Provided: Hospital Course: The patient is a 83 year old M past medical history of diastolic CHF who presented to the emergency room with increased shortness of breath and lower extremity edema. He has required outpatient thoracentesis in the past. He had recently been started on increased Lasix per his PCP however he regardless became more short of breath and more edematous. His orthopnea and PND increased as well. He came to the emergency room a chest x-ray demonstrated right greater than left bilateral pleural effusions. His creatinine was elevated 2.16 with a baseline of about 1.5. His lactic acid was also elevated. He was admitted to the PCU and started on IV Lasix. As he had AK I and lactic acidosis metformin was discontinued. Cardiology was consulted. Patient responded very well to IV Lasix. He was able to tolerate laying flat on his nasal CPAP. Echo showed preserved EF. His symptoms continued to improve and he was weaned off oxygen. He had a repeat chest x-ray which demonstrated increased pleural effusion despite his improvement in symptoms. He was sent for thoracentesis and 500 cc were removed. Following the thoracentesis he had no issues, no shortness of breath, no chest pain, no pleurisy, and desire to go home. 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 Porter in 2 weeks. His home Lasix dose was increased to 60 twice daily. He will need a BMP in 1 week. [facility] will check up on him as an outpatient. This patient was seen by Andrade Meyers PA-C under the supervision of Doctor Holland. [] - Physical Exam General: Alert, Oriented x3, Cooperative HEENT: Atraumatic, PERRLA, EOMI, Normocephalic Neck: Supple, No JVD, Negative Carotid Bruits Lungs: Clear to auscultation, Normal air movement Cardiovascular: Regular rate, No murmurs Abdomen: Bowel Sounds Present, Soft, Non Tender Extremities: No edema, Capillary Refill Less than 3 Seconds Skin: No rashes, No breakdown Musculoskeletal: No Tenderness to Palpation of Joints or Extremities Neurological: Cranial nerves II-XII grossly intact Psych/Mental Status: Normal Affect, Appropriate, Alert and oriented to time, place, person, mood and affect Vital Signs Temp Pulse Resp BP Pulse Ox 98.4 F 78 16 130/76 H 96 12/23/18 09:20 12/23/18 10:59 12/23/18 10:19 12/23/18 10:19 12/23/18 09:20 Oxygen Flow Rate (L/min) 2 Oxygen Delivery Method [3] Room Air Oxygen Delivery Method [2] Room Air Oxygen Delivery Method [1 ( Room Air Initial Baseline)] Oxygen Delivery Method Room Air Weight: 184 lb 11.958 oz Body Mass Index (BMI) 31.5 Intake and Output for Last 24 Hours 12/21/18 12/22/18 12/23/18 23:59 23:59 23:59 Intake Total 790 / 790 820 / 820 560 / 560 Output Total 1500 / 1500 1275 / 1275 2300 / 2300 Balance -710 / -710 -455 / -455 -1740 / -1740 Laboratory Tests Past 24 Hrs 12/23/18 12/23/18 12/23/18 05:40 05:40 05:40 WBC 5.4 RBC 3.82 L Hgb 9.8 L Hct 31.3 L MCV 81.9 MCH 25.7 L MCHC 31.3 L RDW 19.8 H RDW Differential 58.5 H Plt Count 141 L MPV 9.4 Immature Gran % (Auto) 0.200 Neut % (Auto) 65.3 Lymph % (Auto) 18.8 L Laurens % (Auto) 11.2 H Eos % (Auto) 3.4 Baso % (Auto) 1.1 H Absolute Neuts (auto) 3.5 Absolute Lymphs (auto) 1.01 Total Counted Not Reportable PT 19.2 H INR 1.6 APTT 36.8 H Sodium 144 Potassium 3.7 Chloride 106 Carbon Dioxide 29.0 Anion Gap 9 BUN 36 H Creatinine 2.08 H Estim Creat Clear Calc 23.41 Est GFR (MDRD) Af Amer 39 L Est GFR (MDRD) Non-Af 33 L BUN/Creatinine Ratio 17.3 Glucose 116 H Calcium 8.2 L POC Glucose 12/23/18 12/23/18 12/22/18 11:05 06:59 23:53 POC Glucose 168 H 123 H 127 H 12/22/18 17:35 POC Glucose 165 H Discharge Diet: Low fat/ Low Cholesterol, 1800 Calorie Control Diet, 2000 mg Sodium Diet Discharge Activity: Return to Normal Activity Home Medications: Medications to take at Discharge Cholecalciferol (Vitamin D3) [Vitamin D3] 1,000 unit PO DAILY 12/25/13 Aspirin [Aspirin, Baby] 81 mg PO QHS 11/17/14 Cyanocobalamin [Vitamin B12] 1,000 mcg PO DAILY@0800 11/17/14 Pantoprazole Sodium [Protonix] 40 mg PO DAILY 11/17/14 Dicyclomine HCl [Bentyl] 10 mg PO DINNER 03/15/17 Loratadine 10 mg PO DINNER 03/15/17 magnesium oxide 400 mg (241.3 mg magnesium) tablet 400 mg PO LUNCH 12/30/17 warfarin 2 mg tablet 2 mg PO SUTH 12/30/17 warfarin 2 mg tablet 4 mg PO MOTUWEFRSA 12/30/17 amiodarone 200 mg tablet 100 mg PO QHS #45 tab 08/04/18 Amlodipine [Norvasc] 5 mg PO QHS 12/20/18 Ascorbic Acid [Vitamin C] 1,000 mg PO DAILY 12/20/18 Galantamine HBr 8 mg PO DAILY 12/20/18 Tamsulosin HCl [Flomax] 0.4 mg PO DAILY 12/20/18 Carvedilol [Coreg (Beta Hemant)] 6.25 mg PO BID #60 tablet 12/23/18 Fluticasone 0.05% [Flonase Nasal Round O] 1 spray NASAL BID #1 nasal.sry 12/23/18 Furosemide [Lasix] 60 mg PO BID@1000,1800 #180 tablet 12/23/18 Following Prescrptions Were Given to Patient: Carvedilol [Coreg (Beta Hemant)] 6.25 mg PO BID #60 tablet Fluticasone 0.05% [Flonase Nasal Round O] 1 spray NASAL BID #1 nasal.sry Furosemide [Lasix] 60 mg PO BID@1000,1800 #180 tablet Other Amb Orders: Basic Metabolic Profile (BMP) Time Frame: 1 Week, Location: Laboratory Prothrombin Time w/INR Time Frame: 2 Days, Location: Laboratory Primary Care Physician: Pedro Marie MD [Primary Care Provider] - Please follow up with your Primary Care Physician in: 1-2 weeks Please Follow Up With: Ozzie Porter MD When: 2 weeks Please Follow Up With: Pedro Marie MD Disposition: Home Minutes spent on discharge:: 35 Patient Condition:: Stable Medical Necessity - Tobacco Use Smoking Status: Never smoker Meaningful Use Info Meaningful Use Diagnoses (Choose all that apply): CHF - CHF PEREZ/ARB ordered at discharge?: No Reason PEREZ/ARB not ordered?: Worsening renal disease Documented LVEF (%): 60 <Katlyn Holland - Last Filed: 12/23/18 16:09> Discharge Date and Diagnosis - Secondary Discharge Diagnosis Chronic Problems (Last Reviewed 04/04/18 @ 15:08 by Shahla Juan) Valvular heart disease (Chronic) Nonrheumatic mitral (valve) insufficiency (Chronic) Non-rheumatic tricuspid valve insufficiency (Chronic) Non-rheumatic aortic stenosis (Chronic) History of left heart catheterization (Chronic ~01/2014) 05/02/[address] Robertson [facility]; 01/29/[address] 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) Hypertension (Chronic) Chronic renal failure, stage 3 (moderate) (Chronic) History of anxiety disorder (Chronic) Generalized osteoarthritis (Chronic) History of gout (Chronic) Mild dementia (Chronic) Rheumatoid arthritis (Chronic) Diabetes mellitus, type II (Chronic) Generalized weakness (Chronic) History of prostate cancer (Chronic) Status post radiotherapy Anemia of chronic disease (Chronic) due to CRF and RA PAF (paroxysmal atrial fibrillation) (Chronic) Hospital Course and Treatment Imaging Results: 12/23/18 10:10 Chest Insp/Exp 2 View [RAD] Urgent 12/23/18 13:37 Thoracentesis W US [US] Routine Summary of Care Provided: Patient seen by Andrade Meyers PA-C under my supervision The patient is an 83 year old M with an extensive past medical history which includes chronic diastolic heart failure. He was admitted on 12/20/2017 with a complaint of worsening shortness of breath and lower extremity edema. Patient's Lasix dose had been adjusted several times prior to admission on account of worsening edema. Was initially increased to 2 tablets and lower extremity swelling and shortness of breath improved. Symptoms recurred again after he went down to his regular 1 tablet and it was increased again to 1-1/2 tablets. Symptoms improved and he went back to his 1 tablet but then again he became more short of breath with assisted lower extremity edema, orthopnea and PND. Patient had a had a history of thoracentesis on account of pleural effusion. On admission, he was saturating at 95% on 2 L of oxygen chest x-ray showed small to moderate right pleural effusion with underlying atelectasis. He was admitted and managed for acute diastolic CHF and AK I. He was started on IV Lasix for diuresis. Shortness of breath resolved he was weaned off of oxygen. However repeat chest x-ray showed increasing right pleural effusion. He therefore had repeated thoracentesis on 12/23/2018. He remained stable and was discharged home. His home Lasix dose was increased to 60 mg twice daily. H his Coumadin was resumed and he is to have follow-up INR in 2-3 days for target INR of 2-3. Patient seen and examined prior to discharge. He had no complaints and felt well. He denied any fever, chills, cough or chest pain, shortness of breath, abdominal pain, diarrhea vomiting. He was at home and felt very comfortable. Labs and vitals reviewed. Home medications reviewed on consult. o/e: Vital Signs Height 5 ft 5 in Weight: 184 lb 11.958 oz Weight in Pounds 184.7 lbs Pulse Ox 96 Temperature 98.4 F Pulse Rate [3] 84 Pulse Rate [2] 90 Pulse Rate [1 (Initial 87 Baseline)] Pulse Rate 78 Respiratory Rate [3] 16 Respiratory Rate [2] 16 Respiratory Rate [1 (Initial 16 Baseline)] Respiratory Rate 16 Blood Pressure [BP] 90/54 Blood Pressure [3] 119/70 Blood Pressure [2] 133/76 Blood Pressure [1 (Initial 130/76 Baseline)] Blood Pressure 126/69 Blood Pressure Position [BP] Right Lateral Blood Pressure Position Sitting [] General: Alert, Cooperative, No apparent distress HEENT: Atraumatic, PERRLA, EOMI, Normocephalic Oral: Moist Mucosa Neck: Supple, No JVD, Negative Carotid Bruits Lungs: - -mildly decreased breath sounds bibasally, no wheezing or crackles Cardiovascular: Regular rate, Regular Rhythm, Normal S1, Normal S2, No murmurs Abdomen: Bowel Sounds Present, Soft, Non Tender, Non-Distended, No Hepato- splenomegaly Extremities: - - 1+ bilateral LE pitting pedal edema Skin: No rashes, No breakdown Musculoskeletal: No Tenderness to Palpation of Joints or Extremities Lymphatic: No Cervical, Supraclavicular, or Inguinal Adenopathy Neurological: Cranial nerves II-XII grossly intact, Neuro grossly intact, Motor Exam 5/5 strength throughout Psych/Mental Status: Normal Affect, Appropriate, Alert and oriented to time, place, person, mood and affect I have reviewed Andrade Meyers's note and agree with it. - Physical Exam Vital Signs Temp Pulse Resp BP Pulse Ox 98.4 F 78 16 130/76 H 96 12/23/18 09:20 12/23/18 10:59 12/23/18 10:19 12/23/18 10:19 12/23/18 09:20 Oxygen Flow Rate (L/min) 2 Oxygen Delivery Method [3] Room Air Oxygen Delivery Method [2] Room Air Oxygen Delivery Method [1 ( Room Air Initial Baseline)] Oxygen Delivery Method Room Air Weight: 184 lb 11.958 oz Body Mass Index (BMI) 31.5 Intake and Output for Last 24 Hours 12/21/18 12/22/18 12/23/18 23:59 23:59 23:59 Intake Total 790 / 790 820 / 820 560 / 560 Output Total 1500 / 1500 1275 / 1275 2300 / 2300 Balance -710 / -710 -455 / -455 -1740 / -1740 Laboratory Tests Past 24 Hrs 12/23/18 12/23/18 12/23/18 05:40 05:40 05:40 WBC 5.4 RBC 3.82 L Hgb 9.8 L Hct 31.3 L MCV 81.9 MCH 25.7 L MCHC 31.3 L RDW 19.8 H RDW Differential 58.5 H Plt Count 141 L MPV 9.4 Immature Gran % (Auto) 0.200 Neut % (Auto) 65.3 Lymph % (Auto) 18.8 L Laurens % (Auto) 11.2 H Eos % (Auto) 3.4 Baso % (Auto) 1.1 H Absolute Neuts (auto) 3.5 Absolute Lymphs (auto) 1.01 Total Counted Not Reportable PT 19.2 H INR 1.6 APTT 36.8 H Sodium 144 Potassium 3.7 Chloride 106 Carbon Dioxide 29.0 Anion Gap 9 BUN 36 H Creatinine 2.08 H Estim Creat Clear Calc 23.41 Est GFR (MDRD) Af Amer 39 L Est GFR (MDRD) Non-Af 33 L BUN/Creatinine Ratio 17.3 Glucose 116 H Calcium 8.2 L POC Glucose 12/23/18 12/23/18 12/22/18 11:05 06:59 23:53 POC Glucose 168 H 123 H 127 H 12/22/18 17:35 POC Glucose 165 H Code Visit Inpatient E&M: 13554 Disch Hosp
--- NOTE | 2018-12-26 14:07 | CASEMGMT ---
RN REYES DC PHONE CALL DC DATE: 12/23/18 DC DISPOSITION: Home Call to home phone. answered and states pt is taking medications as prescribed. No questions re: dc instructions and they will be seeing Dr. Marie tomorrow. states she is monitoring pt's weight and INR was done today. No care improvement suggestions given, she states the care @[facility] was excellent. Lore OH RN ACM
--- OUTSIDE RECORDS SUMMARY | 2019-02-21 15:09 | XMS RPT_ITS ---
:1935 Author Organization OHIP Support Name Relationship Address Phone JADEN SHARIF I Unavailable [address] + [place] [address] GENOMI EVA L Unavailable Unavailable + [place] [address] R Unavailable Unavailable Unavailable GEITGEY, SHARIF I Unavailable [address] + [place] [address] GEANTHONYYTOMMYEVA L Unavailable Unavailable + [place] [address] R Unavailable Unavailable Unavailable GEITGEY, SHARIF I Unavailable [address] + [place] [address] GEITGEY EVA L Unavailable Unavailable + [place] [address] R Unavailable Unavailable Unavailable GEITGEY, SHARIF I Unavailable [address] + [place] [address] GEITGEYTOMMYEVA L Unavailable Unavailable + [place] [address] R Unavailable Unavailable Unavailable GEITGEY, SHARIF I Unavailable [address] + [place] [address] GEITGEY EVA L Unavailable Unavailable + [place] [address] R Unavailable Unavailable Unavailable GEITGEY, SHARIF I Unavailable [address] + [place] [address] GEITGEY EVA L Unavailable Unavailable + [place] [address] R Unavailable Unavailable Unavailable GEITGEY, SHARIF I Unavailable [address] + [place] [address] GEITGEY, EVA L Unavailable Unavailable + [place] [address] R Unavailable Unavailable Unavailable GEITGEY, SHARIF I Unavailable [address] + [place] [address] GEITGEY, EVA L Unavailable Unavailable + [place] [address] R Unavailable Unavailable Unavailable GEITGEY, SHARIF I Unavailable [address] + [place] [address] GEITGEY, EVA L Unavailable x + [place] [address] R Unavailable Unavailable Unavailable GEITGEY, SHARIF I Unavailable [address] + [place] [address] GEITGEY, EVA L Unavailable Unavailable + [place] [address] R Unavailable Unavailable Unavailable GEITGEY, SHARIF I Unavailable [address] + [place] [address] GEITGEY, EVA L Unavailable Unavailable + [place] [address] R Unavailable Unavailable Unavailable GEITGEY, SHARIF I Unavailable [address] + [place] [address] GEITGEY, EVA L Unavailable Unavailable + [place] [address] R Unavailable Unavailable Unavailable GEITGEY, SHARIF I Unavailable [address] + [place] [address] GEITGEY, EVA L Unavailable Unavailable + [place] [address] R Unavailable Unavailable Unavailable GEITGEY, SHARIF I Unavailable [address] + [place] [address] GEITGEY, EVA L Unavailable Unavailable + [place] [address] R Unavailable Unavailable Unavailable GEITGEY, SHARIF I Unavailable [address] + [place] [address] GEITGEY, EVA L Unavailable . + [place] [address] R Unavailable Unavailable Unavailable GEITGEY, SHARIF I Unavailable [address] + [place] [address] GEITGEY, EVA L Unavailable . + [place] [address] R Unavailable Unavailable Unavailable GEITGEY, SHARIF I Unavailable [address] + [place] [address] GEITGEY, EVA L Unavailable . + [place] [address] R Unavailable Unavailable Unavailable GEITGEY, SHARIF I Unavailable [address] + [place] [address] GEITGEY, EVA L Unavailable . + [place] [address] R Unavailable Unavailable Unavailable GEITGEY, SHARIF I Unavailable [address] + [place] [address] GEITGEY, EVA L Unavailable . + [place] [address] R Unavailable Unavailable Unavailable GEITGEY, SHARIF I Unavailable [address] + [place] [address] GEITGEY, EVA L Unavailable . + [place] [address] R Unavailable Unavailable Unavailable GEITGEY, SHARIF I Unavailable [address] + [place] [address] GEITGEY, EVA L Unavailable . + [place] [address] R Unavailable Unavailable Unavailable GEITGEY, SHARIF I Unavailable [address] + [place] [address] GEITGEY, EVA L Unavailable . [phone] [place] [address] R Unavailable Unavailable Unavailable GEITGEY, SHARIF I Unavailable [address] + [place] [address] GEITGEY, EVA L Unavailable Unavailable [phone] [place] [address] R Unavailable Unavailable Unavailable GEITGEY, SHARIF I Unavailable [address] + [place] [address] GEITGEYTOMMYEVA L Unavailable / [phone] [place] [address] R Unavailable Unavailable Unavailable GEITGEY, SHARIF I Unavailable [address] + [place] [address] GEITGEYTOMMYEVA L Unavailable / [phone] [place] [address] R Unavailable Unavailable Unavailable GEITGEY, SHARIF I Unavailable [address] + [place] [address] GEITGEYTOMMYEVA L Unavailable / [phone] [place] [address] R Unavailable Unavailable Unavailable GEITGEY, SHARIF I Unavailable [address] + [place] [address] GEITGEYTOMMYEVA L Unavailable / [phone] [place] [address] R Unavailable Unavailable Unavailable GEITGEY, SHARIF I Unavailable [address] + [place] [address] GEANAIDGEYTOMMYEVA L Unavailable NA + [place] R Unavailable Unavailable Unavailable GEITGEY, SHARIF Unavailable [address] + [place] [address] GEITGEY, EVA Unavailable [address] [phone] [place] [address] R Unavailable Unavailable Unavailable GEITGEY, SHARIF Unavailable [address] + [place] [address] GEITGEY, EVA Unavailable [address] [phone] [place] [address] R Unavailable Unavailable Unavailable Care Team Providers Name Role Phone ADELAIDE CASTELLANOS Attending Unavailable Marie, Pedro Primary Care Unavailable , ADELAIDE Consulting Unavailable ADELAIDE CASTELLANOS Referring Unavailable Marie, Pedro Attending Unavailable Marie, Pedro Referring Unavailable Marie, Pedro Primary Care Unavailable Marie, Pedro Primary Care Unavailable Koram, Katlyn Anastasia Attending Unavailable Koram, Katlyn Anastasia Admitting Unavailable Koram, Katlyn Anastasia Referring Unavailable Ozzie Porter Consulting Unavailable Koram, Katlyn Anastasia Admitting Unavailable Koram, Katlyn Anastasia Attending Unavailable Koram, Katlyn Anastasia Referring Unavailable Marie, Pedro Primary Care Unavailable Koram, Katlyn Anastasia Consulting Unavailable Koram, Katlyn Anastasia Admitting Unavailable Bhargav Robertson Attending Unavailable Koram, Katlyn Anastasia Referring Unavailable Marie, Pedro Primary Care Unavailable Koram, Katlyn Anastasia Consulting Unavailable Koram, Katlyn Anastasia Admitting Unavailable Ozzie Porter Attending Unavailable Koram, Katlyn Anastasia Referring Unavailable Marie, Pedro Primary Care Unavailable Koram, Katlyn Anastasia Consulting Unavailable Koram, Katlyn Anastasia Admitting Unavailable Koram, Katlyn Anastasia Attending Unavailable Koram, Katlyn Anastasia Referring Unavailable Marie, Pedro Primary Care Unavailable Ozzie Porter Consulting Unavailable Koram, Katlyn Anastasia Consulting Unavailable Koram, Katlyn Anastasia Admitting Unavailable Ozzie Porter Attending Unavailable Koram, Katlyn Anastasia Referring Unavailable Marie, Pedro Primary Care Unavailable Ozzie Porter Consulting Unavailable Koram, Katlyn Anastasia Consulting Unavailable Koram, Katlyn Anastasia Admitting Unavailable Andrade Meyers Attending Unavailable Koram, Katlyn Anastasia Referring Unavailable Marie, Pedro Primary Care Unavailable Ozzie Porter Consulting Unavailable Koram, Katlyn Anastasia Consulting Unavailable Koram, Ktalyn Anastasia Admitting Unavailable Ozzie Porter Attending Unavailable Koram, Katlyn Anastasia Referring Unavailable Marie, Pedro Primary Care Unavailable Ozzie Porter Consulting Unavailable Koram, Katlyn Anastasia Consulting Unavailable Koram, Katlyn Anastasia Admitting Unavailable Andrade Meyers Attending Unavailable Koram, Katlyn Anastasia Referring Unavailable Marie, Pedro Primary Care Unavailable Ozzie Porter Consulting Unavailable Koram, Katlyn Anastasia Consulting Unavailable Janina Nunez Attending Unavailable Shahla Juan Attending Unavailable Ozzie Porter Attending Unavailable Marie, Pedro Referring Unavailable Marie, Pedro Primary Care Unavailable Ozzie Porter Attending Unavailable Ozzie Porter Referring Unavailable Marie, Pedro Primary Care Unavailable Ozzie Porter Attending Unavailable Ozzie Porter Referring Unavailable Marie, Pedro Primary Care Unavailable Marie, Pedro Consulting Unavailable Moodispaw, Bhargav Attending Unavailable Porter, Ozzie Referring Unavailable Marie, Pedro Attending Unavailable Marie, Pedro Primary Care Unavailable Jolliff, Adelaide Attending Unavailable Jolliff, Adelaide Referring Unavailable Marie, Pedro Primary Care Unavailable Porter, Ozzie Attending Unavailable Marie, Pedro Referring Unavailable Marie, Pedro Primary Care Unavailable Marie, Pedro Attending Unavailable Marie, Pedro Referring Unavailable Marie, Pedro Primary Care Unavailable EstradaKylee pichardo Attending Unavailable Marie, Pedro Referring Unavailable Marie, Pedro Primary Care Unavailable EstradaKylee pichardo Attending Unavailable Marie, Pedro Primary Care Unavailable Marie, Pedro Primary Care Unavailable Mcleod, Bhargav Admitting Unavailable Paintsil, Manteno Attending Unavailable Mcleod, Bhargav Admitting Unavailable Mcleod, Bhargav Attending Unavailable Marie, Pedro Primary Care Unavailable Mcleod, Bhargav Consulting Unavailable Mcleod, Bhargav Admitting Unavailable Paintsil, Manteno Attending Unavailable Marie, Pedro Primary Care Unavailable Paintsil, Manteno Consulting Unavailable Paintsil, Manteno Attending Unavailable Marie, Pedro Referring Unavailable Marie, Pedro Primary Care Unavailable Marie, Pedro Attending Unavailable Marie, Pedro Referring Unavailable Marie, Pedro Primary Care Unavailable Marie, Pedro Attending Unavailable Marie, Pedro Referring Unavailable Marie, Pedro Primary Care Unavailable Marie, Pedro Attending Unavailable Marie, Pedro Referring Unavailable Marie, Pedro Primary Care Unavailable PROBLEMS PROBLEMS DATE TYPE CONDITION / CODE ATTENDING STATUS SOURCE 12/15/2018 Unknown R42 - Dizziness and ADELAIDE CASTELLANOS Active [facility] giddiness / Community R42(ICD-10) Hospital Repository 10/10/2018 Unknown M79.671 - Pain in Pedro Marie Active [facility] right foot / Community M79.671(ICD-10) Hospital Repository 09/12/2018 Unknown J90 - Pleural Pedro Marie Active [facility] effusion, not Community elsewhere classified Hospital / J90(ICD-10) Repository 09/09/2018 Unknown R35.0 - Frequency of Pedro Marie Active [place] micturition / Community R35.0(ICD-10) Hospital Repository 07/25/2018 Unknown I50.32 - Chronic Maria A Estrada [place] diastolic Kylee Powers Community (congestive) heart Hospital failure / Repository I50.32(ICD-10) 01/07/2018 Unknown Z98.890 - Other Ozzie Porter Active [place] specified Community postprocedural Hospital states / Repository Z98.890(ICD-10) 01/07/2018 Unknown I10 - Essential Ozzie Porter Active [place] (primary) [facility] hypertension / Hospital I10(ICD-10) Repository 02/04/2018 Unknown R07.9 - Chest pain, Bhargav Robertson Active [place] unspecified / Community R07.9(ICD-10) Hospital Repository 12/30/2017 Unknown I48.0 - Paroxysmal Ozzie Porter Active [facility] atrial fibrillation Community / I48.0(ICD-10) Hospital Repository PROCEDURES PROCEDURES No Procedure Records FoundRESULTS RESULTS DISCHARGE SUMMARY Observed: 12/23/2018 Status: F Source: [place] 4:09 PM [facility] REPOSITORY [facility] Medical Records Department [address] [place] [address] Discharge Summary 12/23/18 1531 MR#: [id number] Acct: [id number] Name: TYRELL STANLEY Rep #: [id number] : 1935 83 From: [facility] [place] PCP: Pedro Marie MD Status: DIS IN Y Location: [facility] [id number] <Andrade Meyers - Last Filed: 12/23/18 15:31> Discharge Date and Diagnosis Date of Admission: 12/20/18 Date of Discharge: 12/23/18 - Primary Discharge Diagnosis Acute on chronic diastolic congestive heart failure with recurrent pleural effusion AK I on CKD stage III Chronic atrial fibrillation Type 2 diabetes mellitus with obesity BPH History of prostate cancer History of RA and osteoarthritis - Secondary Discharge Diagnosis Chronic Problems (Last Reviewed 04/04/18 @ 15:08 by Shahla Juan) Valvular heart disease (Chronic) Nonrheumatic mitral (valve) insufficiency (Chronic) Non-rheumatic tricuspid valve insufficiency (Chronic) Non-rheumatic aortic stenosis (Chronic) History of left heart catheterization (Chronic 01/2014) 05/02/[address] [facility]; 01/29/[address] 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) Hypertension (Chronic) Chronic renal failure, stage 3 (moderate) (Chronic) History of anxiety disorder (Chronic) Generalized osteoarthritis (Chronic) History of gout (Chronic) Mild dementia (Chronic) Rheumatoid arthritis (Chronic) Diabetes mellitus, type II (Chronic) Generalized weakness (Chronic) History of prostate cancer (Chronic) Status post radiotherapy Anemia of chronic disease (Chronic) due to CRF and RA PAF (paroxysmal atrial fibrillation) (Chronic) Hospital Course and Treatment Imaging Results: 12/23/18 10:10 Chest Insp/Exp 2 View [RAD] Urgent 12/23/18 13:37 Thoracentesis W US [US] Routine 500 cc removed RAD/Chest 1 View (Portable) IMPRESSION: Findings in keeping with a mild degree of CHF with bilateral pleural effusions worse on the right side with bibasilar atelectasis. Echo: Interpretation Summary The study was technically difficult. Left ventricular systolic function is normal. The estimated ejection fraction is 60 %. Mildly dilated right ventricle. The left atrium is mildly enlarged. The right atrium is mildly enlarged. There is mild mitral annular calcification. Mild diffuse mitral valve thickening. Mild-Moderate (1-2+) mitral valve insufficiency. Moderate (2+) tricuspid valve insufficiency. Moderate to severe aortic valve stenosis. Right ventricular systolic pressure estimated to be 39 mmHg. Unable to assess diastolic dysfunction. RAD/Thoracic Spine 3 Views IMPRESSION: Multilevel disc space narrowing and anterior kissing osteophytes. Ankylosing spondylitis should be ruled out. RAD/Lumbar Spine 2 or 3 Views IMPRESSION: Degenerative changes of the spine, as detailed above. Consults: Porter : cardiology Operations: None Procedures: None, 2-D Echocardiogram Summary of Care Provided: Hospital Course: The patient is a 83 year old M past medical history of diastolic CHF who presented to the emergency room with increased shortness of breath and lower extremity edema. He has required outpatient thoracentesis in the past. He had recently been started on increased Lasix per his PCP however he regardless became more short of breath and more edematous. His orthopnea and PND increased as well. He came to the emergency room a chest x-ray demonstrated right greater than left bilateral pleural effusions. His creatinine was elevated 2.16 with a baseline of about 1.5. His lactic acid was also elevated. He was admitted to the PCU and started on IV Lasix. As he had AK I and lactic acidosis metformin was discontinued. Cardiology was consulted. Patient responded very well to IV Lasix. He was able to tolerate laying flat on his nasal CPAP. Echo showed preserved EF. His symptoms continued to improve and he was weaned off oxygen. He had a repeat chest x-ray which demonstrated increased pleural effusion despite his improvement in symptoms. He was sent for thoracentesis and 500 cc were removed. Following the thoracentesis he had no issues, no shortness of breath, no chest pain, no pleurisy, and desire to go home. 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 His home Lasix dose was increased to 60 twice daily. He will need a BMP in 1 week. The [facility] will check up on him as an outpatient. This patient was seen by Andrade Meyers PA-C under the supervision of Doctor Skyler. [] - Physical Exam General: Alert, Oriented x3, Cooperative HEENT: Atraumatic, PERRLA, EOMI, Normocephalic Neck: Supple, No JVD, Negative Carotid Bruits Lungs: Clear to auscultation, Normal air movement Cardiovascular: Regular rate, No murmurs Abdomen: Bowel Sounds Present, Soft, Non Tender Extremities: No edema, Capillary Refill Less than 3 Seconds Skin: No rashes, No breakdown Musculoskeletal: No Tenderness to Palpation of Joints or Extremities Neurological: Cranial nerves II-XII grossly intact Psych/Mental Status: Normal Affect, Appropriate, Alert and oriented to time, place, person, mood and affect Vital Signs Temp Pulse Resp BP Pulse Ox 98.4 F 78 16 130/76 H 96 12/23/18 09:20 12/23/18 10:59 12/23/18 10:19 12/23/18 10:19 12/23/18 09:20 Oxygen Flow Rate (L/min) 2 Oxygen Delivery Method [3] Room Air Oxygen Delivery Method [2] Room Air Oxygen Delivery Method [1 ( Room Air Initial Baseline)] Oxygen Delivery Method Room Air Weight: 184 lb 11.958 oz Body Mass Index (BMI) 31.5 Intake and Output for Last 24 Hours Intake Total 790 / 790 820 / 820 560 / 560 Output Total 1500 / 1500 1275 / 1275 2300 / 2300 Balance -710 / -710 -455 / -455 -1740 / -1740 Laboratory Tests Past 24 Hrs POC Glucose POC Glucose 168 H 123 H 127 H POC Glucose 165 H Discharge Diet: Low fat/ Low Cholesterol, 1800 Calorie Control Diet, 2000 mg Sodium Diet Discharge Activity: Return to Normal Activity Home Medications: Medications to take at Discharge Cholecalciferol (Vitamin D3) [Vitamin D3] 1,000 unit PO DAILY 12/25/13 Aspirin [Aspirin, Baby] 81 mg PO QHS 11/17/14 Cyanocobalamin [Vitamin B12] 1,000 mcg PO DAILY@0800 11/17/14 Pantoprazole Sodium [Protonix] 40 mg PO DAILY 11/17/14 Dicyclomine HCl [Bentyl] 10 mg PO DINNER 03/15/17 Loratadine 10 mg PO DINNER 03/15/17 magnesium oxide 400 mg (241.3 mg magnesium) tablet 400 mg PO LUNCH 12/30/17 warfarin 2 mg tablet 2 mg PO SUTH 12/30/17 warfarin 2 mg tablet 4 mg PO MOTUWEFRSA 12/30/17 amiodarone 200 mg tablet 100 mg PO QHS #45 tab 08/04/18 Amlodipine [Norvasc] 5 mg PO QHS 12/20/18 Ascorbic Acid [Vitamin C] 1,000 mg PO DAILY 12/20/18 Galantamine HBr 8 mg PO DAILY 12/20/18 Tamsulosin HCl [Flomax] 0.4 mg PO DAILY 12/20/18 Carvedilol [Coreg (Beta Hemant)] 6.25 mg PO BID #60 tablet 12/23/18 Fluticasone 0.05% [Flonase Nasal [place]] 1 spray NASAL BID #1 nasal.sry 12/23/18 Furosemide [Lasix] 60 mg PO BID@1000,1800 #180 tablet 12/23/18 Following Prescrptions Were Given to Patient: Carvedilol [Coreg (Beta Hemant)] 6.25 mg PO BID #60 tablet Fluticasone 0.05% [Flonase Nasal [place]] 1 spray NASAL BID #1 nasal.sry Furosemide [Lasix] 60 mg PO BID@1000,1800 #180 tablet Other Amb Orders: Basic Metabolic Profile (BMP) Time Frame: 1 Week, Location: Laboratory Prothrombin Time w/INR Time Frame: 2 Days, Location: Laboratory Primary Care Physician: Pedro Marie MD [Primary Care Provider] - Please follow up with your Primary Care Physician in: 1-2 weeks Please Follow Up With: Ozzie Porter MD When: 2 weeks Please Follow Up With: Pedro Marie MD Disposition: Home Minutes spent on discharge:: 35 Patient Condition:: Stable Medical Necessity - Tobacco Use Smoking Status: Never smoker Meaningful Use Info Meaningful Use Diagnoses (Choose all that apply): CHF - CHF PEREZ/ARB ordered at discharge?: No Reason PEREZ/ARB not ordered?: Worsening renal disease Documented LVEF (%): 60 <Katlyn Holland - Last Filed: 12/23/18 16:09> Discharge Date and Diagnosis - Secondary Discharge Diagnosis Chronic Problems (Last Reviewed 04/04/18 @ 15:08 by Shahla Juan) Valvular heart disease (Chronic) Nonrheumatic mitral (valve) insufficiency (Chronic) Non-rheumatic tricuspid valve insufficiency (Chronic) Non-rheumatic aortic stenosis (Chronic) History of left heart catheterization (Chronic 01/2014) 05/02/[address] [facility]; 01/29/[address] 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) Hypertension (Chronic) Chronic renal failure, stage 3 (moderate) (Chronic) History of anxiety disorder (Chronic) Generalized osteoarthritis (Chronic) History of gout (Chronic) Mild dementia (Chronic) Rheumatoid arthritis (Chronic) Diabetes mellitus, type II (Chronic) Generalized weakness (Chronic) History of prostate cancer (Chronic) Status post radiotherapy Anemia of chronic disease (Chronic) due to CRF and RA PAF (paroxysmal atrial fibrillation) (Chronic) Hospital Course and Treatment Imaging Results: 12/23/18 10:10 Chest Insp/Exp 2 View [RAD] Urgent 12/23/18 13:37 Thoracentesis W US [US] Routine Summary of Care Provided: Patient seen by Andrade Meyers PA-C under my supervision The patient is an 83 year old M with an extensive past medical history which includes chronic diastolic heart failure. He was admitted on 12/20/2017 with a complaint of worsening shortness of breath and lower extremity edema. Patient's Lasix dose had been adjusted several times prior to admission on account of worsening edema. Was initially increased to 2 tablets and lower extremity swelling and shortness of breath improved. Symptoms recurred again after he went down to his regular 1 tablet and it was increased again to 1-1/2 tablets. Symptoms improved and he went back to his 1 tablet but then again he became more short of breath with assisted lower extremity edema, orthopnea and PND. Patient had a had a history of thoracentesis on account of pleural effusion. On admission, he was saturating at 95% on 2 L of oxygen chest x-ray showed small to moderate right pleural effusion with underlying atelectasis. He was admitted and managed for acute diastolic CHF and AK I. He was started on IV Lasix for diuresis. Shortness of breath resolved he was weaned off of oxygen. However repeat chest x-ray showed increasing right pleural effusion. He therefore had repeated thoracentesis on 12/23/2018. He remained stable and was discharged home. His home Lasix dose was increased to 60 mg twice daily. H his Coumadin was resumed and he is to have follow-up INR in 2-3 days for target INR of 2-3. Patient seen and examined prior to discharge. He had no complaints and felt well. He denied any fever, chills, cough or chest pain, shortness of breath, abdominal pain, diarrhea vomiting. He was at home and felt very comfortable. Labs and vitals reviewed. Home medications reviewed on consult. o/e: Vital Signs Height 5 ft 5 in Weight: 184 lb 11.958 oz [] General: Alert, Cooperative, No apparent distress HEENT: Atraumatic, PERRLA, EOMI, Normocephalic Oral: Moist Mucosa Neck: Supple, No JVD, Negative Carotid Bruits Lungs: - -mildly decreased breath sounds bibasally, no wheezing or crackles Cardiovascular: Regular rate, Regular Rhythm, Normal S1, Normal S2, No murmurs Abdomen: Bowel Sounds Present, Soft, Non Tender, Non-Distended, No Hepato-splenomegaly Extremities: - - 1+ bilateral LE pitting pedal edema Skin: No rashes, No breakdown Musculoskeletal: No Tenderness to Palpation of Joints or Extremities Lymphatic: No Cervical, Supraclavicular, or Inguinal Adenopathy Neurological: Cranial nerves II-XII grossly intact, Neuro grossly intact, Motor Exam 5/5 strength throughout Psych/Mental Status: Normal Affect, Appropriate, Alert and oriented to time, place, person, mood and affect I have reviewed Andrade Meyers's note and agree with it. - Physical Exam Vital Signs Temp Pulse Resp BP Pulse Ox 98.4 F 78 16 130/76 H 96 12/23/18 09:20 12/23/18 10:59 12/23/18 10:19 12/23/18 10:19 12/23/18 09:20 Oxygen Flow Rate (L/min) 2 Oxygen Delivery Method [3] Room Air Oxygen Delivery Method [2] Room Air Oxygen Delivery Method [1 ( Room Air Initial Baseline)] Oxygen Delivery Method Room Air Weight: 184 lb 11.958 oz Body Mass Index (BMI) 31.5 Intake and Output for Last 24 Hours Intake Total 790 / 790 820 / 820 560 / 560 Output Total 1500 / 1500 1275 / 1275 2300 / 2300 Balance -710 / -710 -455 / -455 -1740 / -1740 Laboratory Tests Past 24 Hrs POC Glucose POC Glucose 168 H 123 H 127 H POC Glucose 165 H Code Visit Inpatient E AND M: [id number] Disch Hosp 12/23/18 1538 <Electronically signed by Andrade LI> Date Andrade LI 12/23/18 1609 <Electronically signed by Katlyn Holland MD> Cosigner Signature (if applicable): Date Katlyn Holland MD CC: GUILLERMO Meyers; Pedro Marie MD; Katlyn Holland MD Signed BEDSIDE GLUCOSE Collected: 12/23/2018 Status: F Source: LIV 11:05 AM [facility] REPOSITORY TYPE CODE TESTS RESULT OUT OF REFERENCE UNITS RANGE LAB L501.080 70-110 mg/dL High BEDSIDE GLU 168 Result Comment: MANAGEMENT OF PATIENT CARE PER NURSING PROTOCOL Performed By: #### L501.080 #### [facility] Laboratory Point of Care [address] [place] [address] DISCHARGE INSTRUCTION Observed: 12/23/2018 Status: F Source: LIV 10:55 AM [facility] REPOSITORY [facility] Medical Records Department [address] [place] [address] Instructions for Home/Discharge Instructions 12/23/18 1051 MR#: [id number] Acct: [id number] Name: TYRELL STANLEY Rep #: [id number] : 1935 83 From: Andrade LI PCP: Pedro Marie MD Status: ADM IN - Discharge Diagnoses Current Active Problems: Current Active and Chronic Problems (Last Reviewed 04/04/18 @ 15:08 by Shahla Juan) Atrial fibrillation (Acute) Valvular heart disease (Chronic) Pleural effusion (Acute) Renal insufficiency (Acute) You will use the following diet at home:: Calorie/Carbohydrate Controlled (specify 1200, 1400, etc) - 1800 ida / day, Cardiac Your food should be the consistency of: Regular Your liquids should be the consistency of: Regular/Thin Discharge Activity: Return to Normal Activity Allergies/Adverse Reactions: Allergies cimetidine HCl [From Tagamet] Allergy (Verified 12/20/18 11:36) Rash ciprofloxacin [From Cipro] Allergy (Verified 12/20/18 11:36) Rash amoxicillin trihydrate [From Augmentin] Adverse Reaction (Verified 12/20/18 11:36) Abd cramps/diarrhea cefdinir [From Omnicef] Adverse Reaction (Verified 12/20/18 11:36) Diarrhea indomethacin sodium [From Indocin] Adverse Reaction (Verified 12/20/18 11:36) Nausea memantine HCl [From Namenda] Adverse Reaction (Verified 12/20/18 11:36) dizziness potassium clavulanate [From Augmentin] Adverse Reaction (Verified 12/20/18 11:36) Abd cramps/diarrhea sitagliptin phosphate [From Januvia] Adverse Reaction (Verified 12/20/18 11:36) Nausea Medications to take at Discharge Cholecalciferol (Vitamin D3) [Vitamin D3] 1,000 unit PO DAILY 12/25/13 Aspirin [Aspirin, Baby] 81 mg PO QHS 11/17/14 Cyanocobalamin [Vitamin B12] 1,000 mcg PO DAILY@0800 11/17/14 Pantoprazole Sodium [Protonix] 40 mg PO DAILY 11/17/14 Dicyclomine HCl [Bentyl] 10 mg PO DINNER 03/15/17 Loratadine 10 mg PO DINNER 03/15/17 magnesium oxide 400 mg (241.3 mg magnesium) tablet 400 mg PO LUNCH 12/30/17 warfarin 2 mg tablet 2 mg PO SUTH 12/30/17 warfarin 2 mg tablet 4 mg PO MOTUWEFRSA 12/30/17 amiodarone 200 mg tablet 100 mg PO QHS #45 tab 08/04/18 Amlodipine [Norvasc] 5 mg PO QHS 12/20/18 Ascorbic Acid [Vitamin C] 1,000 mg PO DAILY 12/20/18 Galantamine HBr 8 mg PO DAILY 12/20/18 Tamsulosin HCl [Flomax] 0.4 mg PO DAILY 12/20/18 Carvedilol [Coreg (Beta Hemant)] 6.25 mg PO BID #60 tablet 12/23/18 Fluticasone 0.05% [Flonase Nasal [place]] 1 spray NASAL BID #1 nasal.sry 12/23/18 Furosemide [Lasix] 60 mg PO BID@1000,1800 #180 tablet 12/23/18 The following prescriptions were given: Carvedilol [Coreg (Beta Hemant)] 6.25 mg PO BID #60 tablet Fluticasone 0.05% [Flonase Nasal [place]] 1 spray NASAL BID #1 nasal.sry Furosemide [Lasix] 60 mg PO BID@1000,1800 #180 tablet Orders to be completed after discharge: Basic Metabolic Profile (BMP) Time Frame: 1 Week, Location: Laboratory Prothrombin Time w/INR Time Frame: 2 Days, Location: Laboratory Primary Care Physician: Pedro Marie MD [Primary Care Provider] - Please follow up with your Primary Care Physician in: 1-2 weeks Test Results: Test results from this visit will be discussed in further detail at your follow-up appointment, if applicable. Please Follow Up With: Ozzie Porter MD When: 2 weeks Proposed Discharge Date: 12/23/18 12/23/18 1055 <Electronically signed by Andrade LI> Date Andrade LI CC: Ozzie Porter MD; Pedro Marie MD Signed BEDSIDE GLUCOSE Collected: 12/23/2018 Status: F Source: LIV 6:59 AM [facility] REPOSITORY TYPE CODE TESTS RESULT OUT OF REFERENCE UNITS RANGE LAB L501.080 70-110 mg/dL High BEDSIDE GLU 123 Result Comment: MANAGEMENT OF PATIENT CARE PER NURSING PROTOCOL Performed By: #### L501.080 #### [facility] Laboratory Point of Care [address] [place] [address] BASIC METABOLIC Collected: 12/23/2018 Status: F Source: LIV PROFILE (BMP) 5:40 AM [facility] REPOSITORY TYPE CODE TESTS RESULT OUT OF RANGE REFERENCE UNITS LAB L501.0100 74-106 mg/dL High GLU 116 Result Comment: Fasting Glucose result from 100 to 125 mg/dL suggests IMPAIRED HOMEOSTASIS per A.D.A. criteria. Please note revised GLUCOSE reference range effective 2017. LAB L501.1000 7-18 mg/dL High BUN 36 LAB L501.1100 0.70-1.30 mg/dL High CREAT,SERUM 2.08 Result Comment: The validity of the calculated GFR AND GFRAA in patients over 70 years has not been determined. Clinical correlation is essential. LAB L501.1110 >60 mL/min Low EST GFR 33 Result Comment: Non- GFR Calc LAB L501.1115 >60 mL/min Low EST GFR - AA 39 Result Comment: GFR Calc LAB L501.1255 ml/min Normal Estimated CRCL 23.41 LAB L501.1300 10-20 RATIO Normal BUN/CRE 17.3 LAB L501.2200 8.5-10 mg/dL Low .1 CA 8.2 LAB L501.5300 136-14 mmol/L Normal 5 NA 144 LAB L501.5600 3.5-5. mmol/L Normal 1 K 3.7 LAB L501.5900 98-107 mmol/L Normal CL 106 LAB L501.6100 21.0-3 mmol/L Normal 2.0 CO2 29.0 LAB L501.6200 5-15 Normal GAP 9 Performed By: #### L500.2500 #### [facility] [address] [place], [address] CBC W/DIFF, AUTOMATED Collected: 12/23/2018 Status: F Source: [place] 5:40 AM [facility] REPOSITORY TYPE CODE TESTS RESULT OUT OF RANGE REFERENCE UNITS LAB L100.1000 4.4-11.0 K/mm3 Normal WBC 5.4 LAB L100.1200 4.6-6.2 M/mm3 Low RBC 3.82 LAB L100.1300 13.0-16.5 g/dl Low HGB 9.8 LAB L100.1400 40-54 % Low HCT 31.3 LAB L100.1500 80-94 fL Normal MCV 81.9 LAB L100.1600 27.0-32.0 pg Low MCH 25.7 LAB L100.1700 32-36 g/gl Low MCHC 31.3 LAB L100.1810 11.6-14.6 % High RDW CV 19.8 LAB L100.1820 35.1-43.9 fl High RDW SD 58.5 LAB L100.1900 150-450 K/mm3 Low PLT 141 LAB L100.2000 6.2-12.0 fl Normal MPV 9.4 LAB L100.2100 47-70 % Normal NEUT% 65.3 LAB L100.2200 19-41 % Low LY% 18.8 LAB L100.2300 0-10 % High MONO% 11.2 LAB L100.2400 0-5 % Normal EO% 3.4 LAB L100.2500 0-1 % High BASO% 1.1 LAB L100.2550 0.0-0.9 % Normal IM GRAN % 0.200 Result Comment: IG% - Immature Granulocytes (promyelocytes, myelocytes and metamyelocytes) > 1% indicates that a LEFT SHIFT is Present. LAB L100.2620 2.0-7.7 X10 3/uL Normal Absolute Neut 3.5 LAB L100.2720 0.83-4.51 X10 3/ul Normal Absolute Lymph 1.01 Performed By: #### L100.0100 #### [facility] [address] [place], [address] PROTHROMBIN TIME W/INR Collected: 12/23/2018 Status: F Source: [place] 5:40 AM [facility] REPOSITORY TYPE CODE TESTS RESULT OUT OF RANGE REFERENCE UNITS LAB L300.4150 11.7-14.9 SECONDS High PROTIME 19.2 LAB L300.4200 Normal INR 1.6 Performed By: #### L300.3900, L300.4310 #### [facility] [address] [place], [address] PARTIAL THROMBOPLAST Collected: 12/23/2018 Status: F Source: LIV TIME 5:40 AM [facility] REPOSITORY TYPE CODE TESTS RESULT OUT OF REFERENCE UNITS RANGE LAB L300.4310 24.1-36.2 Seconds High PTT 36.8 Performed By: #### L300.3900, L300.4310 #### [facility] [address] [place], [address] BEDSIDE GLUCOSE Collected: 12/22/2018 Status: F Source: LIV 11:53 PM [facility] REPOSITORY TYPE CODE TESTS RESULT OUT OF REFERENCE UNITS RANGE LAB L501.080 70-110 mg/dL High BEDSIDE GLU 127 Result Comment: MANAGEMENT OF PATIENT CARE PER NURSING PROTOCOL Performed By: #### L501.080 #### [facility] Laboratory Point of Care [address] [place] [address] BEDSIDE GLUCOSE Collected: 12/22/2018 Status: F Source: LIV 5:35 PM [facility] REPOSITORY TYPE CODE TESTS RESULT OUT OF REFERENCE UNITS RANGE LAB L501.080 70-110 mg/dL High BEDSIDE GLU 165 Result Comment: MANAGEMENT OF PATIENT CARE PER NURSING PROTOCOL Performed By: #### L501.080 #### [facility] Laboratory Point of Care [address] [place] [address] THORACENTESIS W US Observed: 12/22/2018 Status: F Source: LIV 1:39 PM [facility] REPOSITORY [facility] Imaging Services [address] [place] [address] Thoracentesis W US MR#: [id number] Acct: [id number] Name: TYRELL STANLEY Rep #: [id number] : 1935 M 83 From: Justin Castro MD PCP: Pedro Marie MD Status: ADM IN Study: Thoracentesis W US Date of Exam: 12/23/18 Exam# [id number] Ordering Dr: Andrade Meyers PROCEDURE: ULTRASOUND GUIDED THORACENTESIS. DATE: June 22, 2019. INDICATION: Male, 83 years old. Right pleural effusion PHYSICIAN: Justin Castro M.D. PROCEDURE: The risks, benefits, and alternatives to the procedure were explained to the patient. The specific risks of bleeding, infection, and pneumothorax requiring chest tube insertion were discussed and accepted. Written informed consent was obtained. Ultrasonographic evaluation of the right lower pleural space was carried out. An adequate pocket was identified. The patient was placed in the sitting, upright position. The overlying skin was prepped and draped in sterile fashion. 1% lidocaine was administered subcutaneously for local anesthesia. Under ultrasound guidance, a 5 [place] thoracentesis needle/catheter system was advanced into the right posterior lower pleural fluid collection. Approximately 500 mL of crescencio-colored fluid was drained. The catheter was removed, and a sterile dressing was applied. The patient tolerated the procedure well. A chest x-ray was ordered. US/Thoracentesis W US IMPRESSION: Ultrasound-guided right thoracentesis. Electronically Signed: Justin Castro MD at 10:55 EST , Service support , CC: GUILLERMO Meyers; Pedro Marie MD Office Aide: Signed BEDSIDE GLUCOSE Collected: 12/22/2018 Status: F Source: LIV 12:10 PM [facility] REPOSITORY TYPE CODE TESTS RESULT OUT OF REFERENCE UNITS RANGE LAB L501.080 70-110 mg/dL High BEDSIDE GLU 163 Result Comment: MANAGEMENT OF PATIENT CARE PER NURSING PROTOCOL Performed By: #### L501.080 #### [facility] Laboratory Point of Care [address] [place] [address] CHEST PA AND LATERAL Observed: 12/22/2018 Status: F Source: LIV 9:05 AM [facility] REPOSITORY [facility] Imaging Services [address] [place] [address] Chest PA and Lateral MR#: [id number] Acct: [id number] Name: TYRELL STANLEY Rep #: [id number] : 1935 M 83 From: Justin Castro MD PCP: Pedro Marie MD Status: ADM IN Study: Chest PA and Lateral Date of Exam: 12/22/18 Exam# [id number] Ordering Dr: Katlyn Holland MD STUDY: X-RAY CHEST REASON FOR EXAM: Male, 83 years old. Shortness of breath. TECHNIQUE: PA and lateral views of the chest. COMPARISON: Comparison is made with prior examination dated December 20, 2018. FINDINGS: EKG electrodes are seen. Slight increase in the right pleural effusion with right basilar infiltration. Stable pleural parenchymal changes at the left lung base. The vascular congestion has improved. There is moderate cardiac enlargement. Normal mediastinum and monalisa. Normal visualized pulmonary arteries. There is atherosclerotic calcification of the aortic arch with tortuosity. There are diffuse degenerative changes of the visualized thoracic spine. Status post right shoulder replacement. There is no demonstrated abnormality of the visualized soft tissue structures of the upper abdomen. RAD/Chest PA and Lateral IMPRESSION: Slight increase in the right pleural effusion and right basilar infiltration. Stable pleural parenchymal changes at the left lung base. Electronically Signed: Justin Castro MD at 13:11 EST , Service support , CC: Pedro Marie MD; Katlyn Holland MD Office Aide: Signed BEDSIDE GLUCOSE Collected: 12/22/2018 Status: F Source: [place] 6:42 AM [facility] REPOSITORY TYPE CODE TESTS RESULT OUT OF REFERENCE UNITS RANGE LAB L501.080 70-110 mg/dL High BEDSIDE GLU 121 Result Comment: MANAGEMENT OF PATIENT CARE PER NURSING PROTOCOL Performed By: #### L501.080 #### [facility] Laboratory Point of Care [address] [place] [address] CBC W/DIFF, AUTOMATED Collected: 12/22/2018 Status: F Source: [place] 6:00 AM [facility] REPOSITORY TYPE CODE TESTS RESULT OUT OF RANGE REFERENCE UNITS LAB L100.1000 4.4-11.0 K/mm3 Normal WBC 5.4 LAB L100.1200 4.6-6.2 M/mm3 Low RBC 3.77 LAB L100.1300 13.0-16.5 g/dl Low HGB 9.6 LAB L100.1400 40-54 % Low HCT 30.5 LAB L100.1500 80-94 fL Normal MCV 80.9 LAB L100.1600 27.0-32.0 pg Low MCH 25.5 LAB L100.1700 32-36 g/gl Low MCHC 31.5 LAB L100.1810 11.6-14.6 % High RDW CV 19.6 LAB L100.1820 35.1-43.9 fl High RDW SD 54.5 LAB L100.1900 150-450 K/mm3 Low PLT 143 LAB L100.2000 6.2-12.0 fl Normal MPV 9.2 LAB L100.2100 47-70 % Normal NEUT% 69.2 LAB L100.2200 19-41 % Low LY% 15.1 LAB L100.2300 0-10 % High MONO% 11.9 LAB L100.2400 0-5 % Normal EO% 2.8 LAB L100.2500 0-1 % Normal BASO% 0.6 LAB L100.2550 0.0-0.9 % Normal IM GRAN % 0.400 Result Comment: IG% - Immature Granulocytes (promyelocytes, myelocytes and metamyelocytes) > 1% indicates that a LEFT SHIFT is Present. LAB L100.2620 2.0-7.7 X10 3/uL Normal Absolute Neut 3.8 LAB L100.2720 0.83-4.51 X10 3/ul Low Absolute Lymph 0.82 Performed By: #### L100.0100 #### [facility] [address] [place], [address] PROTHROMBIN TIME W/INR Collected: 12/22/2018 Status: F Source: LIV 6:00 AM [facility] REPOSITORY TYPE CODE TESTS RESULT OUT OF RANGE REFERENCE UNITS LAB L300.4150 11.7-14.9 SECONDS High PROTIME 21.6 LAB L300.4200 Normal INR 1.9 Performed By: #### L300.3900 #### [facility] [address] [place], [address] BASIC METABOLIC Collected: 12/22/2018 Status: F Source: LIV PROFILE (BMP) 6:00 AM [facility] REPOSITORY TYPE CODE TESTS RESULT OUT OF RANGE REFERENCE UNITS LAB L501.0100 74-106 mg/dL High GLU 117 Result Comment: Fasting Glucose result from 100 to 125 mg/dL suggests IMPAIRED HOMEOSTASIS per A.D.A. criteria. Please note revised GLUCOSE reference range effective 2017. LAB L501.1000 7-18 mg/dL High BUN 37 LAB L501.1100 0.70-1.30 mg/dL High CREAT,SERUM 2.07 Result Comment: The validity of the calculated GFR AND GFRAA in patients over 70 years has not been determined. Clinical correlation is essential. LAB L501.1110 >60 mL/min Low EST GFR 33 Result Comment: Non- GFR Calc LAB L501.1115 >60 mL/min Low EST GFR - AA 40 Result Comment: GFR Calc LAB L501.1255 ml/min Normal Estimated CRCL 23.52 LAB L501.1300 10-20 RATIO Normal BUN/CRE 17.9 LAB L501.2200 8.5-10 mg/dL Low .1 CA 8.3 LAB L501.5300 136-14 mmol/L Normal 5 NA 141 LAB L501.5600 3.5-5. mmol/L Normal 1 K 3.5 LAB L501.5900 98-107 mmol/L Normal CL 103 LAB L501.6100 21.0-3 mmol/L Normal 2.0 CO2 28.0 LAB L501.6200 5-15 Normal GAP 10 Performed By: #### L500.2500 #### [facility] [address] [place], [address] BEDSIDE GLUCOSE Collected: 12/21/2018 Status: F Source: LIV 9:44 PM [facility] REPOSITORY TYPE CODE TESTS RESULT OUT OF REFERENCE UNITS RANGE LAB L501.080 70-110 mg/dL High BEDSIDE GLU 124 Result Comment: MANAGEMENT OF PATIENT CARE PER NURSING PROTOCOL Performed By: #### L501.080 #### [facility] Point of Care [address] [place] [address] BEDSIDE GLUCOSE Collected: 12/21/2018 Status: F Source: LIV 4:19 PM [facility] REPOSITORY TYPE CODE TESTS RESULT OUT OF REFERENCE UNITS RANGE LAB L501.080 70-110 mg/dL High BEDSIDE GLU 112 Result Comment: MANAGEMENT OF PATIENT CARE PER NURSING PROTOCOL Performed By: #### L501.080 #### [facility] Point of Care [address] [place] [address] BEDSIDE GLUCOSE Collected: 12/21/2018 Status: F Source: LIV 11:59 AM [facility] REPOSITORY TYPE CODE TESTS RESULT OUT OF RANGE REFERENCE UNITS LAB L501.080 70-110 mg/dL Normal BEDSIDE GLU 98 Result Comment: MANAGEMENT OF PATIENT CARE PER NURSING PROTOCOL Performed By: #### L501.080 #### [facility] Point of Care [address] [place] [address] THORACIC SPINE 3 Observed: 12/21/2018 Status: F Source: LIV VIEWS 9:18 AM [facility] REPOSITORY [facility] Imaging Services [address] [place] [address] Thoracic Spine 3 Views MR#: [id number] Acct: [id number] Name: TYRELL STANLEY Rep #: [id number] : 1935 M 83 From: Justin Castro MD PCP: Pedro Marie MD Status: ADM IN Study: Thoracic Spine 3 Views Date of Exam: 12/21/18 Exam# [id number] Ordering Dr: Katlyn Holland MD STUDY: X-RAY - THORACIC SPINE REASON FOR EXAM: Male, 83 years old. Chronic back pain. TECHNIQUE: 3 view(s) of the thoracic spine were obtained. COMPARISON: None. FINDINGS: There is an increase in the normal thoracic kyphosis. There is no substantial scoliosis. There is demineralization of the thoracic spine with endplate spondylosis. There is multilevel disc space narrowing of the thoracic spine. Calcification of the aortic arch. RAD/Thoracic Spine 3 Views IMPRESSION: Multilevel disc space narrowing and anterior kissing osteophytes. Ankylosing spondylitis should be ruled out. Electronically Signed: Justin Castro MD at 13:32 EST , Service support , CC: Pedro Marie MD; Katlyn Holland MD Office Aide: Signed LUMBAR SPINE 2 OR 3 Observed: 12/21/2018 Status: F Source: [place] VIEWS 9:18 AM [facility] REPOSITORY [facility] Imaging Services [address] [place] [address] Lumbar Spine 2 or 3 Views MR#: [id number] Acct: [id number] Name: TYRELL STANLEY Rep #: [id number] : 1935 M 83 From: Justin Castro MD PCP: Pedro Marie MD Status: ADM IN Study: Lumbar Spine 2 or 3 Views Date of Exam: 12/21/18 Exam# [id number] Ordering Dr: Katlyn Holland MD STUDY: X-RAY - LUMBAR SPINE REASON FOR EXAM: Male, 83 years old. Back pain. TECHNIQUE: 3 view(s) of the lumbar spine were obtained. COMPARISON: Comparison is made with prior study dated August 15, 2015. FINDINGS: Normal lumbar lordosis. There is no substantial scoliosis. There is a normal alignment of the vertebrae. There is diffuse demineralization with multi-level endplate spondylosis. There is multi-level degenerative disc disease with multi- level disc space narrowing. Facet joint osteoarthritis. There is atherosclerotic calcification of the abdominal aorta without a demonstrated aneurysm. RAD/Lumbar Spine 2 or 3 Views IMPRESSION: Degenerative changes of the spine, as detailed above. Electronically Signed: Justin Castro MD at 13:34 EST , Service support , CC: Pedro Marie MD; Katlyn Holland MD Office Aide: Signed BEDSIDE GLUCOSE Collected: 12/21/2018 Status: F Source: [place] 7:05 AM [facility] REPOSITORY TYPE CODE TESTS RESULT OUT OF RANGE REFERENCE UNITS LAB L501.080 70-110 mg/dL Normal BEDSIDE GLU 105 Result Comment: MANAGEMENT OF PATIENT CARE PER NURSING PROTOCOL Performed By: #### L501.080 #### [facility] Point of Care [address] [facility] [place], [place] [address] PROTHROMBIN TIME W/INR Collected: 12/21/2018 Status: F Source: L[place] 6:10 AM [facility] REPOSITORY TYPE CODE TESTS RESULT OUT OF RANGE REFERENCE UNITS LAB L300.4150 11.7-14.9 SECONDS High PROTIME 26.0 LAB L300.4200 Normal INR 2.4 Performed By: #### L300.3900 #### [facility] [address] [facility] [place], [place], [address] BASIC METABOLIC Collected: 12/21/2018 Status: F Source: LIV PROFILE (BMP) 6:10 AM [facility] REPOSITORY TYPE CODE TESTS RESULT OUT OF RANGE REFERENCE UNITS LAB L501.0100 74-106 mg/dL High GLU 108 Result Comment: Fasting Glucose result from 100 to 125 mg/dL suggests IMPAIRED HOMEOSTASIS per A.D.A. criteria. Please note revised GLUCOSE reference range effective 2017. LAB L501.1000 7-18 mg/dL High BUN 40 LAB L501.1100 0.70-1.30 mg/dL High CREAT,SERUM 2.20 Result Comment: The validity of the calculated GFR AND GFRAA in patients over 70 years has not been determined. Clinical correlation is essential. LAB L501.1110 >60 mL/min Low EST GFR 31 Result Comment: Non- GFR Calc LAB L501.1115 >60 mL/min Low EST GFR - AA 37 Result Comment: GFR Calc LAB L501.1255 ml/min Normal Estimated CRCL 22.13 LAB L501.1300 10-20 RATIO Normal BUN/CRE 18.2 LAB L501.2200 8.5-10 mg/dL Low .1 CA 8.3 LAB L501.5300 136-14 mmol/L Normal 5 NA 140 LAB L501.5600 3.5-5. mmol/L Normal 1 K 3.5 LAB L501.5900 98-107 mmol/L Normal CL 102 LAB L501.6100 21.0-3 mmol/L Normal 2.0 CO2 28.0 LAB L501.6200 5-15 Normal GAP 10 Performed By: #### L500.2500 #### [facility] [address] [place], [address] CBC W/DIFF, AUTOMATED Collected: 12/21/2018 Status: F Source: [place] 6:10 AM [facility] REPOSITORY TYPE CODE TESTS RESULT OUT OF RANGE REFERENCE UNITS LAB L100.1000 4.4-11.0 K/mm3 Normal WBC 5.7 LAB L100.1200 4.6-6.2 M/mm3 Low RBC 3.79 LAB L100.1300 13.0-16.5 g/dl Low HGB 9.5 LAB L100.1400 40-54 % Low HCT 30.6 LAB L100.1500 80-94 fL Normal MCV 80.7 LAB L100.1600 27.0-32.0 pg Low MCH 25.1 LAB L100.1700 32-36 g/gl Low MCHC 31.0 LAB L100.1810 11.6-14.6 % High RDW CV 19.3 LAB L100.1820 35.1-43.9 fl High RDW SD 56.2 LAB L100.1900 150-450 K/mm3 Low PLT 135 LAB L100.2000 6.2-12.0 fl Normal MPV 9.5 LAB L100.2100 47-70 % High NEUT% 70.8 LAB L100.2200 19-41 % Low LY% 13.2 LAB L100.2300 0-10 % High MONO% 11.4 LAB L100.2400 0-5 % Normal EO% 3.3 LAB L100.2500 0-1 % Normal BASO% 0.9 LAB L100.2550 0.0-0.9 % Normal IM GRAN % 0.400 Result Comment: IG% - Immature Granulocytes (promyelocytes, myelocytes and metamyelocytes) > 1% indicates that a LEFT SHIFT is Present. LAB L100.2620 2.0-7.7 X10 3/uL Normal Absolute Neut 4.0 LAB L100.2720 0.83-4.51 X10 3/ul Low Absolute Lymph 0.75 Performed By: #### L100.0100 #### [facility] [address] [facility] [place], [address] BEDSIDE GLUCOSE Collected: 12/20/2018 Status: F Source: [place] 9:57 PM [facility] REPOSITORY TYPE CODE TESTS RESULT OUT OF REFERENCE UNITS RANGE LAB L501.080 70-110 mg/dL High BEDSIDE GLU 131 Result Comment: MANAGEMENT OF PATIENT CARE PER NURSING PROTOCOL Performed By: #### L501.080 #### [facility] Point of Care [address] [facility] [place] [address] ECHOCARDIOGRAM COMPLETE Observed: 12/20/2018 Status: F Source: [place] 7:30 PM [facility] REPOSITORY [facility] Cardiovascular Services [address] [place] [address] Echo Complete 12/20/18 1509 MR#: [id number] Acct: [id number] Name: TYRELL STANLEY Rep #: [id number] : 1935 83 From: Bhargav Robertson MD Attending Dr: Katlyn Holland MD Status: ADM IN Ordering Dr: Katlyn Holland MD Date: 12/20/18 Location: U Sex: M C Admitted: 12/20/18 Reason For Study: CHF Procedure This was a 2D Doppler, Color Flow transthoracic echocardiogram. The study was technically difficult. Exam performed portable in patient room. Left Ventricle Normal LV size. Left ventricular systolic function is normal. The estimated ejection fraction is 60 %. Unable to assess diastolic dysfunction. No regional wall motion abnormalities noted. Right Ventricle Mildly dilated right ventricle. Normal systolic function. Atria The left atrium is mildly enlarged. The right atrium is mildly enlarged. No doppler evidence for ASD. Mitral Valve There is mild mitral annular calcification. Mild diffuse mitral valve thickening. Mild-Moderate (1- 2+) mitral valve insufficiency. Tricuspid Valve Normal tricuspid valve. Moderate (2+) tricuspid valve insufficiency. Right ventricular systolic pressure estimated to be 39 mmHg. Aortic Valve Trisinus/trileaflet aortic valve. Moderate diffuse aortic valve thickening. Moderate focal aortic valve calcification. Moderate to severe aortic valve stenosis. Pulmonic Valve The pulmonic valve is not well visualized. Great Vessels Normal sized aortic root. Pericardium/Pleural No pericardial effusion. MMode/2D Measurements AND Calculations LVIDd: 4.9 cm IVSd: 0.97 cm LVOT diam: 2.1 cm LVIDs: 3.5 cm LVPWd: 1.2 cm LVOT area: 3.4 cm2 RVDd: 4.3 cm FS: 27.0 % Ao root diam: 3.0 cm LAV(MOD-bp): 80.9 ml LA A4 area: 23.4 cm2 LAV(MOD-bp) Indexed: 41.9 ml/m2 LAV(MOD-sp2): 82.3 ml LAV(MOD-sp4): 69.9 ml LA dimension(2D): 3.8 cm RA A4 area: 22.5 cm2 Doppler Measurements AND Calculations MV E max karli: 125.7 cm/sec Ao V2 max: 293.6 cm/sec LV V1 max: 79.0 cm/sec Ao max P.5 mmHg LV V1 max P.5 mmHg Ao V2 mean: 222.8 cm/sec LV V1 mean P.6 mmHg Ao mean P.4 mmHg LV V1 mean: 60.4 cm/sec Ao V2 VTI: 68.9 cm LV V1 VTI: 18.0 cm SEVEN(I,D): 0.88 cm2 SEVEN(V,D): 0.91 cm2 SV(LVOT): 60.9 ml PA V2 max: 122.2 cm/sec TR max karli: 277.2 cm/sec TR max P.8 mmHg Interpretation Summary The study was technically difficult. Left ventricular systolic function is normal. The estimated ejection fraction is 60 %. Mildly dilated right ventricle. The left atrium is mildly enlarged. The right atrium is mildly enlarged. There is mild mitral annular calcification. Mild diffuse mitral valve thickening. Mild-Moderate (1-2+) mitral valve insufficiency. Moderate (2+) tricuspid valve insufficiency. Moderate to severe aortic valve stenosis. Right ventricular systolic pressure estimated to be 39 mmHg. Unable to assess diastolic dysfunction. Ordering Physician: Katlyn Holland Referring Physician: Katlyn Holland Performed By: Concha Valdez, RDCS, RVT 12/20/18 192 Date Bhargav Robertson MD CC: Pedro Marie MD; Katlyn Holland MD Date Dictated: 12/20/18 1509 Date Transcribed: 12/20/181928 Office Aide: Signed URINALYSIS, COMPLETE Collected: 12/20/2018 Status: F Source: [place] 7:30 PM [facility] REPOSITORY Order Comment: How was Urine Obtained? CLEAN CATCH TYPE CODE TESTS RESULT OUT OF RANGE REFERENCE UNITS LAB L400.3000 Yellow COLOR Normal Yellow LAB L400.3050 Clear Normal CLARITY Clear LAB L400.3200 Normal mg/dl Normal GLUCOSE, UR Normal LAB L400.3300 Negative mg/dL Normal BILIRUBIN URINE Negative LAB L400.3400 Negative mg/dl Normal KETONE UR Negative LAB L400.3465 1.002-1.030 Normal SP.GR. DIPSTX 1.010 LAB L400.3550 5.0 - 8.0 pH UR Normal 6.5 LAB L400.3600 Negative mg/dl High PROT 15 DIPSTX LAB L400.3700 Normal mg/dl Normal UROBILI Normal LAB L400.3750 Negative Normal NITRITE UR Negative LAB L400.3780 Negative /ul High 10 OCCULT BLOOD-UR LAB L400.3800 Negative /ul High LEUK ESTERASE 500 LAB L400.4050 0-5 /hpf WBC Normal 0-5 SEEN LAB L400.4100 0-5 /hpf 0 Normal RBC-UA SEEN LAB L400.4150 0-5 /hpf SQUAM 0 Normal EPI SEEN LAB L400.4300 None Seen /hpf 0 Normal BACTERIA SEEN LAB L400.4350 <or=2+ /hpf 0 Normal MUCUS, URINE SEEN Performed By: #### L400.0001 #### [facility] [address] [place], [place], [id number] CREATININE, URINE Collected: 12/20/2018 Status: F Source: [place] ([place]) 7:30 PM [facility] REPOSITORY Order Comment: Has pt arrived? Y TYPE CODE TESTS RESULT OUT OF RANGE REFERENCE UNITS LAB L501.1200 NO RANGE EST. mg/dL Normal UR CREAT 46.80 Performed By: #### L501.1200 #### [facility] [address], [address] UREA NITROGEN, URINE Collected: 12/20/2018 Status: F Source: [place] 7:30 PM [facility] REPOSITORY Order Comment: Has pt arrived? Y TYPE CODE TESTS RESULT OUT OF RANGE REFERENCE UNITS LAB L502.0715 NO RANGE EST. mg/dL Normal URINE 230 UREA Performed By: #### L502.0715 #### [facility] [address] [place], [address] CONSULTATION Observed: 12/20/2018 Status: F Source: [place] 5:39 PM [facility] REPOSITORY [facility] Medical Records Department [address] [place] [id number] Consultation 12/20/18 1724 MR#: [id number] Acct: [id number] Name: TYRELL STANLEY Rep #: [id number] : 1935 83 From: Bhargav Robertson MD PCP: Pedro Marie MD Status: ADM IN Y Location: [place] [address] Problem List (1) Atrial fibrillation Status: Acute Qualifiers: Atrial fibrillation type: paroxysmal Qualified Code(s): I48.0 - Paroxysmal atrial fibrillation (2) Chronic diastolic (congestive) heart failure Status: Acute (3) Valvular heart disease Status: Chronic (4) 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 Status: Chronic (5) Pleural effusion Status: Acute (6) Hypertension Status: Chronic Qualifiers: (7) Renal insufficiency Status: Acute Reason for Consult Date of Consultation: 12/20/18 History of Present Illness: The patient is a 83 year old white male with a past cardiovascular history which has included concerns of underlying paroxysmal atrial fibrillation, chronic diastolic mediated CHF, valvular heart disease with concerns of aortic valve stenosis and mitral valve regurgitation/tricuspid valve regurgitation, pleural effusion status post previous thoracentesis, pulmonary hypertension, essential hypertension, superimposed upon concerns of diabetes mellitus and dementia who is referred for evaluation of progressive shortness of breath/dyspnea and recurrent atrial fibrillation. The patient notes that recently he has been having progressive shortness of breath and dyspnea as well as increasing lower extremity peripheral pitting edema and weight gain. He has noted orthopnea and PND. He has noted a discomfort feeling in his chest. He has not noted recurrence of his atrial relation. There has been no near syncope or syncope. He reportedly has had altering doses of diuretics per his PCP which has helped but not lead to resolution of his ongoing issues. He states he continues to follow with his PCP for his anticoagulant therapy which his states has been therapeutic. Based upon his ongoing symptoms and concerns he presented to the emergency department this day for reevaluation. In the emergency department he was found to be short of breath and dyspneic. He was noted to have peripheral pitting edema of the lower extremities. He was found to be in atrial fibrillation. On radiologic findings he was noted to have a right-sided pleural effusion. He was treated medically with IV furosemide. He was placed in the PCU for further evaluation and care. [] Past Medical History Allergies/Adverse Reactions: Allergies cimetidine HCl [From Tagamet] Allergy (Verified 12/20/18 11:36) Rash ciprofloxacin [From Cipro] Allergy (Verified 12/20/18 11:36) Rash amoxicillin trihydrate [From Augmentin] Adverse Reaction (Verified 12/20/18 11:36) Abd cramps/diarrhea cefdinir [From Omnicef] Adverse Reaction (Verified 12/20/18 11:36) Diarrhea indomethacin sodium [From Indocin] Adverse Reaction (Verified 12/20/18 11:36) Nausea memantine HCl [From Namenda] Adverse Reaction (Verified 12/20/18 11:36) dizziness potassium clavulanate [From Augmentin] Adverse Reaction (Verified 12/20/18 11:36) Abd cramps/diarrhea sitagliptin phosphate [From Januvia] Adverse Reaction (Verified 12/20/18 11:36) Nausea Home Medications: Ambulatory Orders Medication Instructions Recorded Cholecalciferol (Vitamin D3) 1,000 unit PO DAILY 12/25/13 [Vitamin D3] Aspirin [Aspirin, Baby] 81 mg PO QHS 11/17/14 Cyanocobalamin [Vitamin B12] 1,000 mcg PO DAILY@0800 11/17/14 Past Medical History (Chronic Problems): Chronic Problems (Last Reviewed 04/04/18 @ 15:08 by Shahla Juan) Valvular heart disease (Chronic) Nonrheumatic mitral (valve) insufficiency (Chronic) Non-rheumatic tricuspid valve insufficiency (Chronic) Non-rheumatic aortic stenosis (Chronic) History of left heart catheterization (Chronic 01/2014) 05/02/[address] [facility]; 01/29/[address] 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) Hypertension (Chronic) Chronic renal failure, stage 3 (moderate) (Chronic) History of anxiety disorder (Chronic) Generalized osteoarthritis (Chronic) History of gout (Chronic) Mild dementia (Chronic) Rheumatoid arthritis (Chronic) Diabetes mellitus, type II (Chronic) Generalized weakness (Chronic) History of prostate cancer (Chronic) Status post radiotherapy Anemia of chronic disease (Chronic) due to CRF and RA PAF (paroxysmal atrial fibrillation) (Chronic) Surgical History: cholecystectomy, total knee arthroplasty Psychiatric History: No pertinent psych hx - *Family History Maternal Family History: Family History (Last Reviewed 07/25/18 @ 09:23 by Estelle Wilder) Father CAD (coronary artery disease) Myocardial infarction Brother Diabetes History Items: No pertinent history Paternal Family History: Family History (Last Reviewed 07/25/18 @ 09:23 by Estelle Wilder) Father CAD (coronary artery disease) Myocardial infarction Brother Diabetes History Items: No pertinent history Lives: Spouse/ Significant Other Smoking Status: Never smoker Alcohol: None Drugs: None Review of Systems - Review of Systems General: Denies: Fever, Night Sweats, Fatigue Cardiovascular: Reports: Chest Discomfort, Shortness of Breath, Orthopnea, PND, Peripheral Edema. Denies: Palpitations, Lightheadedness, Dizziness, Near Syncope, Syncope Respiratory: Reports: Shortness of Breath. Denies: Cough, Sputum Production, Hemoptysis Gastrointestinal: Denies: Hematemesis, Hematochezia, Melena Genitourinary: Denies: Dysuria, Hematuria Skin: Denies: Rash Subjectve: This is a pleasant 83-year-old white male who appears to be resting comfortably at the moment in no acute distress. Objective: Vital Signs Temp Pulse Resp BP Pulse Ox 97.6 F L 80 18 127/73 H 95 12/20/18 12:35 12/20/18 14:59 12/20/18 16:02 12/20/18 12:35 12/20/18 16:02 Oxygen Flow Rate (L/min) 2 Oxygen Delivery Method Nasal Cannula Weight: 189 lb 9.561 oz Body Mass Index (BMI) 31.5 General: Awake, Alert, Cooperative, No Acute Distress, Obese HEENT: Atraumatic, Normocephalic, PERRL, EOMI, Sclera Non Icteric Oral: Moist Mucosa Neck: Supple, Good ROM, No JVD Lungs: Diminished Right Base Cardiovascular: Irregular Rhythm, Normal S1, Normal S2 Vascular: No Carotid Bruits Abdomen: Bowel Sounds Present, Soft, Non Tender Extremities: Moderate RLE Edema, Moderate LLE Edema Psych/Mental Status: Appropriate 12/20/18 10:35: WBC 5.6, RBC 3.94 L, Hgb 9.9 L, Hct 31.9 L, MCV 81.0, MCH 25.1 L, MCHC 31.0 L, RDW 19.3 H, RDW Differential 55.5 H, Plt Count 136 L, MPV 9.7, Immature Gran % (Auto) 0.200, Neut % (Auto) 74.9 H, Lymph % (Auto) 11.6 L, [place] % (Auto) 9.6, Eos % (Auto) 3.0, Baso % (Auto) 0.7, Absolute Neuts (auto) 4.2, Total Counted Not Reportable 12/20/18 10:35: PT 24.8 H, INR 2.2 12/20/18 10:35: Sodium 140, Potassium 3.8, Chloride 103, Carbon Dioxide 26.0, Anion Gap 11, BUN 37 H, Creatinine 2.16 H, Est GFR (MDRD) Af Amer 38 L, Est GFR (MDRD) Non-Af 31 L, BUN/Creatinine Ratio 17.1, Glucose 145 H, Calcium 8.3 L, Troponin I < 0.015 12/20/18 10:35: B-Natriuretic Peptide 762.4 H 12/20/18 10:50: Lactic Acid 2.1 H 12/20/18 14:00: Troponin I < 0.015 12/20/18 15:00: Lactic Acid 1.9 Rhythm: Atrial fibrillation EKG: Atrial fibrillation; left axis deviation; nonspecific IVCD ECHO: 12/28/2016: Left ventricle: Normal LV systolic function with an LVEF 65%; mild concentric LVH; mild MR/TR; moderate diffuse aortic valve thickening with mild restriction of the aortic valve with mild aortic valve stenosis and trivial AI, estimated RV systolic pressure 48 mmHg compatible pulmonary hypertension, decreased diastolic compliance Stress Test: 01/06/2018: Pharmacologic stress nuclear imaging study: Considered negative with respect to myocardial ischemia or infarction and a gated LVEF of 60% Cardiac Cath: 01/29/2014: [facility]: Per report: No angiographically significant appearing CAD; left ventricle reported with an LVEF of 45-50% CXR: Preliminary evaluation: Diminished inspiratory effort; right sided pleural effusion; please see official report Assessment/Plan 1. Atrial fibrillation The patient has had recurrence of his atrial fibrillation. It is unclear as to whether the loss of his atrial kick superimposed upon his underlying history of diastolic mediated CHF has led to now acute on chronic CHF with subsequent poor perfusion contributing to his diminished renal insufficiency, etc. At the present time he will continue to be monitored. He will continue rate control therapy. His anticoagulant therapy may need to be interrupted for potential upcoming invasive procedures including the possibility of a right-sided thoracentesis. He can continue his antiarrhythmic therapy. Depending upon his clinical course he may or may not be a candidate for repeat DC cardioversion, which is gone through at least on 2 different occasions in the past, versus consideration for future EP consultation for EPS/RFA. 2. Acute on chronic diastolic mediated CHF He has had progressive symptoms compatible with acute on chronic diastolic mediated CHF. His BNP is elevated. His renal function has declined. He will continue to be monitored. He will continue medical therapy. This will include IV diuretics. He will be reassessed with an echocardiogram to reevaluate his left ventricular wall motion and systolic function. 3. Valvular heart disease He does have a history of underlying valvular heart disease as described above. He will be reassessed with an echocardiogram for any significant changes it would be contributing to his current clinical course. 4. Pulmonary hypertension The does have a history of pulmonary hypertension as previously noted. Again an attempt was made to reassess his pulmonary status/right-sided pressures with a transthoracic echocardiogram. 5. Pleural effusion He does have a right-sided pleural effusion. Again at the present time his anticoagulants will be placed on hold as he may need a right-sided thoracentesis. 6. Hypertension He does have a history of hypertension. He will continue medical management with adjustment as needed. Consideration will have to be taken in account with respect to his underlying renal insufficiency when it comes to medical adjustment. 7. Renal insufficiency This creatinine level has increased. It may be secondary to his cardiovascular related issues. Again he will continue cardiovascular care. His renal function will need to be followed. Comment: The patient's case has been previously discussed with Dr. Cisneros of the [facility] emergency department staff. This note was generated with [employer] software. It may contain incorrect words, spelling, and punctuation that were not noted in checking the note before signing. 12/20/18 1739 <Electronically signed by Bhargav Robertson MD> Date Bhargav Robertson MD Cosigner Signature (if applicable): Date CC: Pedro Marie MD; Ozzie Porter MD; Pedro Marie MD; Katlyn Holland MD Signed BEDSIDE GLUCOSE Collected: 12/20/2018 Status: F Source: [place] 4:50 PM [facility] REPOSITORY TYPE CODE TESTS RESULT OUT OF REFERENCE UNITS RANGE LAB L501.080 70-110 mg/dL High BEDSIDE GLU 115 Result Comment: MANAGEMENT OF PATIENT CARE PER NURSING PROTOCOL Performed By: #### L501.080 #### [facility] Point of Care [address] [address] TROPONIN-I Collected: 12/20/2018 Status: F Source: [place] 4:40 PM [facility] REPOSITORY Order Comment: 'TROP' Serial specimen #1, #2 or #3: 2 TYPE CODE TESTS RESULT OUT OF RANGE REFERENCE UNITS LAB L501.4010 <0.045 ng/mL Normal < 0.015 TROPONIN-I Result Comment: TROPONIN-I EXPECTED VALUES <0.045 Negative 0.045 - 0.590 Consistent with Cardiac Damage > OR = 0.600 Critical Value Not every elevated troponin is indicative of MA. These values should be used with clinical judgement in examining the patient's clinical picture for diagnosis. To establish a diagnosis of MA versus myocardial injury, there must be a demonstrated rise and/or fall in the troponin values, in addition to ischemic symptoms, EKG changes, new regional wall motion abnormality, and/or angiographical evidence. PLEASE NOTE: REFERENCE RANGES EDITED 18 Performed By: #### L501.4010 #### [facility] [address] [place], [address] HISTORY AND PHYSICAL Observed: 12/20/2018 Status: F Source: [place] EXAM 3:48 PM [facility] REPOSITORY [facility] Medical Records Department [address] [place] [address] History and Physical 12/20/18 1157 MR#: [id number] Acct: [id number] Name: TYRELL STANLEY Rep #: [id number] : 1935 83 From: Katlyn Holland MD PCP: Pedro Marie MD Status: ADM IN Y Location: [place] [address] History of Present Illness Date of Admission: 12/20/18 Chief Complaint: shortness of breath The patient is a 83 year old M with an extensive PMH as listed. He was admitted through the ED on 12/20/17 with a complaint of worsening shortness of breath and LE edema. Patient has a history of chronic systolic heart failure and used to be on one tablet of lasix daily. However, a couple of weeks ago, he noticed that his legs were getting more swollen and he was getting short of breath and could not fast in his belt. He therefore saw his PCP dose of Lasix was increased to 2 tablets. Symptoms resolved and so his PCP told him to go down to 1 tablet. However symptoms recurred again and he was told to take 1.5 tablets of the lasix. Symptoms resolved again and he went down to his one tablet. However, over the past few days, he has become more SOB, with associated LE edema, orthopnea and PND. therefore decided to bring him in to the ED. blood pressure was 93/59 in the ED subsequently came up to 127/73. Vitals were otherwise WNL. He was saturating 95% on 2 L of oxygen. Chest x-ray showed small to moderate right pleural effusion with underlying infiltration atelectasis and increased markings at the left lung base suggestive of atelectasis superimposed on a mild degree of CHF as well as moderate cardiac enlargement. EKG showed A. fib with no acute ST changes. Initial troponin was negative. He is being admitted to be managed for acute systolic CHF exacerbation and CARMEN [] Past Medical History Past Medical History (Chronic Problems): Chronic Problems (Last Reviewed 04/04/18 @ 15:08 by Shahla Juan) Nonrheumatic mitral (valve) insufficiency (Chronic) Non-rheumatic tricuspid valve insufficiency (Chronic) Non-rheumatic aortic stenosis (Chronic) History of left heart catheterization (Chronic 01/2014) 05/02/[address] [facility]; 01/29/[address] [facility]: coronaries angiographically normal, pulmonary htn by RV eval, EF at that time was 45-50% Chronic diastolic (congestive) heart failure (Chronic) History of pleural effusion (Chronic) 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 (Chronic) correction current use of 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) Hypertension (Chronic) Chronic renal failure, stage 3 (moderate) (Chronic) History of anxiety disorder (Chronic) Generalized osteoarthritis (Chronic) History of gout (Chronic) Mild dementia (Chronic) Rheumatoid arthritis (Chronic) Diabetes mellitus, type II (Chronic) Generalized weakness (Chronic) History of prostate cancer (Chronic) Status post radiotherapy Anemia of chronic disease (Chronic) due to CRF and RA PAF (paroxysmal atrial fibrillation) (Chronic) Medical History: Medical History (Last Reviewed 04/04/18 @ 15:08 by Shahla Juan) Nonrheumatic mitral (valve) insufficiency (Chronic) I34.0 Non-rheumatic tricuspid valve insufficiency (Chronic) I36.1 Non-rheumatic aortic stenosis (Chronic) I35.0 Chronic diastolic (congestive) heart failure (Chronic) I50.32 History of pleural effusion (Chronic) Z87.09 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) Z79.01 Hypertension (Chronic) I10 Chronic renal failure, stage 3 (moderate) (Chronic) N18.3 History of anxiety disorder (Chronic) Z86.59 Generalized osteoarthritis (Chronic) M15.9 History of gout (Chronic) Z87.39 Mild dementia (Chronic) F03.90 Rheumatoid arthritis (Chronic) M06.9 Diabetes mellitus, type II (Chronic) E11.9 History of prostate cancer (Chronic) Status post radiotherapy Anemia of chronic disease (Chronic) D63.8 due to CRF and RA PAF (paroxysmal atrial fibrillation) (Chronic) I48.0 Syncope and collapse R55 Allergies cimetidine HCl [From Tagamet] Allergy (Verified 12/20/18 11:36) Rash ciprofloxacin [From Cipro] Allergy (Verified 12/20/18 11:36) Rash amoxicillin trihydrate [From Augmentin] Adverse Reaction (Verified 12/20/18 11:36) Abd cramps/diarrhea cefdinir [From Omnicef] Adverse Reaction (Verified 12/20/18 11:36) Diarrhea indomethacin sodium [From Indocin] Adverse Reaction (Verified 12/20/18 11:36) Nausea memantine HCl [From Namenda] Adverse Reaction (Verified 12/20/18 11:36) dizziness potassium clavulanate [From Augmentin] Adverse Reaction (Verified 12/20/18 11:36) Abd cramps/diarrhea sitagliptin phosphate [From Januvia] Adverse Reaction (Verified 12/20/18 11:36) Nausea Home Medications: Ambulatory Orders Medication Instructions Recorded Cholecalciferol (Vitamin D3) 1,000 unit PO DAILY 12/25/13 [Vitamin D3] Aspirin [Aspirin, Baby] 81 mg PO QHS 11/17/14 Cyanocobalamin [Vitamin B12] 1,000 mcg PO DAILY@0800 11/17/14 Surgical History: Surgical History (Last Updated 07/25/18 @ 09:23 by Estelle Wilder) History of left heart catheterization (Chronic) Onset Date: 01/2014 Z98.890 05/02/[address] [facility]; 01/29/[address] [facility]: coronaries angiographically normal, pulmonary htn by RV eval, EF at that time was 45-50% History of bilateral inguinal hernia repair Z98.890, Z87.19 History of cholecystectomy Onset Date: 1989 Z90.49 History of left knee replacement Z96.652 History of right shoulder replacement Z96.611 History of tonsillectomy Z90.89 Surgical History: cholecystectomy, total knee arthroplasty Psychiatric History: No pertinent psych hx Lives: Spouse/ Significant Other Smoking Status: Never smoker Alcohol: None Drugs: None - *Family History Maternal Family History: Family History (Last Reviewed 07/25/18 @ 09:23 by Estelle Wilder) Father CAD (coronary artery disease) Myocardial infarction Brother Diabetes History Items: No pertinent history Paternal Family History: Family History (Last Reviewed 07/25/18 @ 09:23 by Estelle Wilder) Father CAD (coronary artery disease) Myocardial infarction Brother Diabetes History Items: No pertinent history Review of Systems Constitutional: Reports: Weight Change - gained 10 pounds over last few days, according to his . Denies: Chills, Fever, Weakness HEENT: Denies: Head Aches, Sinus Congestion, Sinus Drainage Cardiovascular: Reports: Edema. Denies: Chest Pain, Chest Pressure, Palpitations Respiratory: Reports: Shortness of Breath, Shortness of breath at rest, Shortness of breath upon exertion. Denies: Cough, Sputum production Gastrointestinal: Denies: Abdominal Pain, Nausea, Vomiting Genitourinary: Denies: Dysuria Musculoskeletal: Denies: Joint Pain, Joint Tenderness Skin: Denies: Rash, Wounds Neurological: Denies: Numbness, Tingling, Focal weakness Psychiatric: Denies: Anxiety, Depression, Homicidal Ideations, Suicidal Ideations Hematologic/ Lymphatic: Denies: Easy Bruising, Easy Bleeding VTE Information - Inpt Only VTE Present on Admission: No VTE Pharm Prophylaxis ordered?: Yes - Physical Exam General: Alert, Cooperative, No apparent distress HEENT: Atraumatic, PERRLA, EOMI, Normocephalic Oral: Moist Mucosa Neck: Supple, No JVD, Negative Carotid Bruits Lungs: - - decreased breath sounds bibasally, no wheezing or crackles Cardiovascular: Regular rate, Regular Rhythm, Normal S1, Normal S2, No murmurs Abdomen: Bowel Sounds Present, Soft, Non Tender, Non-Distended, No Hepato-splenomegaly Extremities: - - bilateral LE pitting pedal edema Skin: No rashes, No breakdown Musculoskeletal: No Tenderness to Palpation of Joints or Extremities Lymphatic: No Cervical, Supraclavicular, or Inguinal Adenopathy Neurological: Cranial nerves II-XII grossly intact, Neuro grossly intact, Motor Exam 5/5 strength throughout Psych/Mental Status: Normal Affect, Appropriate, Alert and oriented to time, place, person, mood and affect Vital Signs Temp Pulse Resp BP Pulse Ox 97.6 F L 72 18 109/73 95 12/20/18 10:33 12/20/18 11:37 12/20/18 11:37 12/20/18 11:37 12/20/18 11:37 Oxygen Flow Rate (L/min) 2 Oxygen Delivery Method Nasal Cannula Weight: 186 lb 4.65 oz Body Mass Index (BMI) 30.9 Laboratory Tests Past 24 Hrs WBC 5.6 RBC 3.94 L Hgb 9.9 L WBC Diagnostic Data Chest X-Ray 12/20/18 10:43 IMPRESSION: Findings in keeping with a mild degree of CHF with bilateral pleural effusions worse on the right side with bibasilar atelectasis. Electronically Signed: Justin Castro MD at 11:12 EST Tel [phone], Service support , Assessment/Plan All Active Problems (Last Reviewed 04/04/18 @ 15:08 by Shahla Juan) Community acquired bacterial pneumonia (Acute) Chest pain (Resolved) Dehydration (Resolved) Hypomagnesemia (Resolved) 83-year-old male admitted with a complaint of shortness of breath, orthopnea, PND and lower extremity edema. 1. Acute on chronic diastolic heart failure * SOB worsening, with LE edema, orthopnea and PND * has been compliant with his lasix * initial tropnin negative, and BNP was 762.4 * CXR showed evidence of heart failure * admit to PCU with telemetry * cycle troponin * give IV lasix 40mg bid; will monitor Cr closely * 2D echo(08/12): EF of 60%, with impaired relaxation of LV * will order 2D echo * on carvedilol 2. CARMEN on CKD: * Cr is 2.16, baseline is 1.5 * due to heart failure,cannot hydrate with IVF. * will trend Cr * will hold lisinopril * will check FeUrea * will check UA * 3. Lactic acidosis: lactic acid is 2. Likely due to CARMEN. WIll trend lactic acid 4. Chronic aFib: EKG showed Afib. on amiodarone and carvedilol. On coumadin. will monitor INR. 5. Diabetes mellitus: will hold metformin o/a of CARMEN. ISS. Accuchecks ACHS DVT prophylaxis: on coumadin. INR is 2.2 Code status: Patient and counseled extensively about different types of CODE STATUS including full code, DNR CCA and DNR CCA. Patient elects to be full code. . Total ghen-zi-beld time 16 minutes. Code Visit Inpatient E AND M: 01899 Init Hosp L3 Procedures: 68571 Advncd Care Plan 30 Min 12/20/18 1548 <Electronically signed by Katlyn Holland MD> Date Katlyn Holland MD Cosigner Signature: Date (if applicable) CC: Pedro Marie MD; Katlyn Holland MD Signed LACTIC ACID Collected: 12/20/2018 Status: F Source: LIV 3:00 PM [facility] REPOSITORY TYPE CODE TESTS RESULT OUT OF RANGE REFERENCE UNITS LAB L503.6005 0.4-2.0 mmol/L Normal LACTIC ACID 1.9 Performed By: #### L503.6005 #### [facility] [address] [place], [address] BEDSIDE GLUCOSE Collected: 12/20/2018 Status: F Source: [place] 2:01 PM [facility] REPOSITORY TYPE CODE TESTS RESULT OUT OF RANGE REFERENCE UNITS LAB L501.080 70-110 mg/dL Normal BEDSIDE GLU 103 Result Comment: MANAGEMENT OF PATIENT CARE PER NURSING PROTOCOL Performed By: #### L501.080 #### [facility] Point of Care [address] [place] [address] TROPONIN-I Collected: 12/20/2018 Status: F Source: [place] 2:00 PM [facility] REPOSITORY Order Comment: 'TROP' Serial specimen #1, #2 or #3: 1 TYPE CODE TESTS RESULT OUT OF RANGE REFERENCE UNITS LAB L501.4010 <0.045 ng/mL Normal < 0.015 TROPONIN-I Result Comment: TROPONIN-I EXPECTED VALUES <0.045 Negative 0.045 - 0.590 Consistent with Cardiac Damage > OR = 0.600 Critical Value Not every elevated troponin is indicative of MA. These values should be used with clinical judgement in examining the patient's clinical picture for diagnosis. To establish a diagnosis of MA versus myocardial injury, there must be a demonstrated rise and/or fall in the troponin values, in addition to ischemic symptoms, EKG changes, new regional wall motion abnormality, and/or angiographical evidence. PLEASE NOTE: REFERENCE RANGES EDITED 18 Performed By: #### L501.4010 #### [facility] [address] [place], [address] EMERGENCY DEPARTMENT Observed: 12/20/2018 Status: F Source: [place] SUMMARY 11:44 AM [facility] REPOSITORY [facility] Medical Records Department [address] [place] [address] Emergency Department Summary 12/20/18 1054 MR#: [id number] Acct: [id number] Name: TYRELL STANLEY Rep #: [id number] : 1935 83 From: Joseph Cisneros MD PCP: Pedro Marie MD Status: REG ER - ER Visit Summary Date of Service: 12/20/18 Chief Complaint: Dyspnea History of Present Illness: The patient is a 83 M who is hard of hearing and and has dementia. She is not a good informant. provided majority of the history. He acknowledges he is short of breath. states he normally is able to walk throughout the house without becoming short of breath. Now he is only able to walk 5 feet before becoming short of breath. He denies, fever, chills or night sweats. He does have orthopnea. He has history of H fibrillation and was cardioverted by Dr. Porter. He is on Coumadin. He has had problems with edema of the lower extremities over the past several weeks. His medications have been adjusted. There is no history of black or maroon stool. There is history of chronic anemia. There is history of congestive heart failure, type 2 diabetes, end-stage renal disease (stage III), paroxysmal atrial fibrillation, K acquired pneumonia, secondary pulmonary hypertension, osteoarthritis and history of nonrheumatic aortic stenosis, mitral insufficiency and tricuspid insufficiency. Physical Examination: Patient is hard of hearing. He answers questions with 1 or 2 words. He is not answering in 1-2 words because of respiratory distress. Conjunctive is slightly pink. Lungs reveal diminished breath sounds right side with rales bilaterally. Heart is irregularly irregular and monitor reveals atrial fibrillation with a ventricular response varying between 75 and 85. Abdomen slightly distended tympanitic. There is 2+ pitting edema below right and left knee. Difficult to assess pulse in lower extremities because of edema. There is stigmata of peripheral arterial disease. He moves all extremities. Sensations intact. Cranial 2 through 12 are intact. Difficult to assess affect. Difficult to assess thought content. Test Results: EKG reveals atrial fibrillation with a ventricular rate of 78. QRS duration is prolonged and indicates a nonspecific intraventricular conduction delay. Metcalfe is to the left. QT duration is prolonged. Chest x-ray reveals elevated right hemidiaphragm, congestive heart failure and pleural effusion on the right. Difficult to assess if there is a pleural effusion on the left. H AND H 9.9 and 31.9. BUN and creatinine are 37 and 2.16. Creatinine on August 17, 2018 was 1.27. Creatinine on September 09, 2018 was 1.43. Creatinine on December 09, 2018 was 1.6. INR is therapeutic at 2.2. Troponin is less than 0.015. Emergency Department Course and Treatment: To evaluate patient's presentation of dyspnea dyspnea on exertion we will obtain EKG, chest x-ray troponin and appropriate blood work. Need to evaluate for cardiac ischemia, anemia and congestive heart failure. Depending on etiology of his congestive heart failure treatment will defer. Blood pressure was 93/59. Review of prior records reveals systolic prior visits was 140-150. states rolloff driver is Dr. Porter. She does not recall when he was last cardioverted. Treatment Plan: Patient received 80 mg of Lasix. He was not treated with nitroglycerin for preload reduction or PEREZ inhibitor since he is hypotensive. Per old records systolic blood pressure varies between 140 and 150. Page was placed to rolloff driver. Dr. Bhargav Robertson is on-call for Dr. Gio Porter. After speaking with cardiology will contact hospitalist for admission. Case discussed with Dr. Robertson. He agrees with treatment plan. He will see patient once he goes to the floor. Disposition: PCU stepdown full admission plan for cardioversion Impression: 1. Hypotension 2. Lactic acidosis 3. Exacerbation of congestive heart failure with hypoxia 4. Acute renal insufficiency 5. Anemia nonspecific 6. History of hypertension 7. History of pulmonary hypertension, secondary 8. Atrial fibrillation with controlled ventricular rate This note was generated with [employer] dictation software. It may contain incorrect words, spelling, and punctuation that were not noted in review of the chart prior to signing ED Disposition - Plan for ED Patient: Chief Complaint: Shortness of Breath Referrals: Pedro Marie MD [Primary Care Provider] - What to do if you have Problems For any increased pain, shortness of breath, bleeding, nausea or vomiting, chest pain, or any unexpected problems, contact your Primary Care Provider. Call [facility] ([phone]) or report to the closest Emergency Room. Call 911 if necessary. 12/20/18 1144 <Electronically signed by Joseph Cisneros MD> Date Joseph Cisneros MD Cosigner Signature (If Indicated): Date CC: Ozzie Porter MD; Pedro Marie MD LACTIC ACID Collected: 12/20/2018 Status: F Source: LIV 10:50 AM [facility] REPOSITORY Order Comment: Yes/No query for Sepsis Lactate Rule Y TYPE CODE TESTS RESULT OUT OF REFERENCE UNITS RANGE LAB L503.6005 0.4-2.0 mmol/L High LACTIC ACID 2.1 Result Comment: Critical Result(s) Called at: 11:25:12 12/20/2018 by: Talon Fitzpatrick RN Performed By: #### L503.6005 #### [facility] [address] [place], [place], [address] CHEST 1 VIEW Observed: 12/20/2018 Status: F Source: LIV (PORTABLE) 10:45 AM [facility] REPOSITORY [facility] Imaging Services [address] [place] [address] Chest 1 View (Portable) MR#: [id number] Acct: [id number] Name: TYRELL STANLEY Rep #: [id number] : 1935 M 83 From: Justin Castro MD PCP: Pedro Marie MD Status: PRE ER Study: Chest 1 View (Portable) Date of Exam: 12/20/18 Exam# [id number] Ordering Dr: Joseph Cisneros MD STUDY: X-RAY CHEST REASON FOR EXAM: Male, 83 years old. Diminished breath sounds. TECHNIQUE: Single AP portable view of the chest. COMPARISON: Comparison is made with prior study dated September 12, 2018. FINDINGS: EKG electrodes are seen. Small to moderate right pleural effusion with underlying infiltration and/or atelectasis. Increased markings at the left lung base suggestive of atelectasis. This is superimposed on a mild degree of CHF. There is moderate cardiac enlargement. Normal mediastinum and monalisa. Normal visualized pulmonary arteries. There is atherosclerotic calcification of the aortic arch with tortuosity. Normal visualized thoracic spine. Status post right reverse shoulder replacement. There is no demonstrated abnormality of the visualized soft tissue structures of the upper abdomen. RAD/Chest 1 View (Portable) IMPRESSION: Findings in keeping with a mild degree of CHF with bilateral pleural effusions worse on the right side with bibasilar atelectasis. Electronically Signed: Justin Castro MD at 11:12 EST Tel [phone], Service support , CC: Pedro Marie MD; Joseph Cisneros MD Office Aide: Signed CBC W/DIFF, AUTOMATED Collected: 12/20/2018 Status: F Source: [place]IV 10:35 AM [facility] REPOSITORY TYPE CODE TESTS RESULT OUT OF RANGE REFERENCE UNITS LAB L100.1000 4.4-11.0 K/mm3 Normal WBC 5.6 LAB L100.1200 4.6-6.2 M/mm3 Low RBC 3.94 LAB L100.1300 13.0-16.5 g/dl Low HGB 9.9 LAB L100.1400 40-54 % Low HCT 31.9 LAB L100.1500 80-94 fL Normal MCV 81.0 LAB L100.1600 27.0-32.0 pg Low MCH 25.1 LAB L100.1700 32-36 g/gl Low MCHC 31.0 LAB L100.1810 11.6-14.6 % High RDW CV 19.3 LAB L100.1820 35.1-43.9 fl High RDW SD 55.5 LAB L100.1900 150-450 K/mm3 Low PLT 136 LAB L100.2000 6.2-12.0 fl Normal MPV 9.7 LAB L100.2100 47-70 % High NEUT% 74.9 LAB L100.2200 19-41 % Low LY% 11.6 LAB L100.2300 0-10 % Normal MONO% 9.6 LAB L100.2400 0-5 % Normal EO% 3.0 LAB L100.2500 0-1 % Normal BASO% 0.7 LAB L100.2550 0.0-0.9 % Normal IM GRAN % 0.200 Result Comment: IG% - Immature Granulocytes (promyelocytes, myelocytes and metamyelocytes) > 1% indicates that a LEFT SHIFT is Present. LAB L100.2620 2.0-7.7 X10 3/uL Normal Absolute Neut 4.2 LAB L100.2720 0.83-4.51 X10 3/ul Low Absolute Lymph 0.65 Performed By: #### L100.0100 #### [facility] [address] [place], [place], [address] PROTHROMBIN TIME W/INR Collected: 12/20/2018 Status: F Source: [place]IV 10:35 AM [facility] REPOSITORY TYPE CODE TESTS RESULT OUT OF RANGE REFERENCE UNITS LAB L300.4150 11.7-14.9 SECONDS High PROTIME 24.8 LAB L300.4200 Normal INR 2.2 Performed By: #### L300.3900 #### [facility] [address] [place], [place], [address] BASIC METABOLIC Collected: 12/20/2018 Status: F Source: LIV PROFILE (BMP) 10:35 AM [facility] REPOSITORY TYPE CODE TESTS RESULT OUT OF RANGE REFERENCE UNITS LAB L501.0100 74-106 mg/dL High GLU 145 Result Comment: Fasting Glucose result greater than or equal to 126 mg/dL suggests DIABETES MELLITUS per A.D.A. criteria. Please note revised GLUCOSE reference range effective 2017. LAB L501.1000 7-18 mg/dL High BUN 37 LAB L501.1100 0.70-1.30 mg/dL High CREAT,SERUM 2.16 Result Comment: The validity of the calculated GFR AND GFRAA in patients over 70 years has not been determined. Clinical correlation is essential. LAB L501.1110 >60 mL/min Low EST GFR 31 Result Comment: Non- GFR Calc LAB L501.1115 >60 mL/min Low EST GFR - AA 38 Result Comment: GFR Calc LAB L501.1255 ml/min Normal Estimated CRCL 22.54 LAB L501.1300 10-20 RATIO Normal BUN/CRE 17.1 LAB L501.2200 8.5-10 mg/dL Low .1 CA 8.3 LAB L501.5300 136-14 mmol/L Normal 5 NA 140 LAB L501.5600 3.5-5. mmol/L Normal 1 K 3.8 LAB L501.5900 98-107 mmol/L Normal CL 103 LAB L501.6100 21.0-3 mmol/L Normal 2.0 CO2 26.0 LAB L501.6200 5-15 Normal GAP 11 Performed By: #### L500.2500, L501.4010 #### [facility] [address] [facility] [place], [address] TROPONIN-I Collected: 12/20/2018 Status: F Source: [place] 10:35 AM [facility] REPOSITORY TYPE CODE TESTS RESULT OUT OF RANGE REFERENCE UNITS LAB L501.4010 <0.045 ng/mL Normal < 0.015 TROPONIN-I Result Comment: TROPONIN-I EXPECTED VALUES <0.045 Negative 0.045 - 0.590 Consistent with Cardiac Damage > OR = 0.600 Critical Value Not every elevated troponin is indicative of MA. These values should be used with clinical judgement in examining the patient's clinical picture for diagnosis. To establish a diagnosis of MA versus myocardial injury, there must be a demonstrated rise and/or fall in the troponin values, in addition to ischemic symptoms, EKG changes, new regional wall motion abnormality, and/or angiographical evidence. PLEASE NOTE: REFERENCE RANGES EDITED 18 Performed By: #### L500.2500, L501.4010 #### [facility] [address] [place], [address] BNP,B-TYPE NATRIURETIC Collected: 12/20/2018 Status: F Source: LIV PEPTIDE 10:35 AM [facility] REPOSITORY TYPE CODE TESTS RESULT OUT OF RANGE REFERENCE UNITS LAB L503.6620 0-100 pg/mL High B-TYPE 762.4 SEKOU PEP Performed By: #### L503.6620 #### [facility] [address] [place], [address] PT D/C SUMMARY (1) Observed: 12/13/2018 Status: F Source: LIV 9:43 AM [facility] REPOSITORY [facility] [facility] [address] [place] [address] / REHABILITATION SERVICES DISCHARGE SUMMARY MR#: [id number] Acct: [id number] Name: TYRELL STANLEY Rep #: [id number] : 1935 83 From: Josue Amor DPT, OCS, CSCS Referring : Status: REG RCR Insurance: [employer] SELF PAY INSURANCE HP - PT D/C Summary It has been my pleasure to treat TYRELL STANLEY under orders from [facility], for the diagnosis of vertigo for a total of 3 visit(s). Discharge Date: 12/12/18 Please see the following information for a summary of their discharge status. - Subjective Subjective: not seeing allot of difference. Sitting at supper table last night and felt lightheaded like he might pass out. Lasted 2-3 minutes. No spinning. No falls or LOB according to patient. says those lightheaded spells are 2-3x/day. No f/u with neuro. Will see family doctor on 12/25. No symptoms with exercises. Being treated for anemia with iron since Wednesday. - Overall Improvement % Improvement: 0 - Objective Objective/Function: Demonstrated ex perfectly in sitting without symptoms. FGA doing well, unable to create symtpoms with head movements or positions changes or eye ex today. - Goals Goal 1:: abolish vertigo Goal Progress: Not Progressing - Plan Plan: D/C, pt back to doctor(phone call) for other options. Drink plenty of water and montior anemia treatment for helpfulness with dizzyness. - D/C Information Discharge Comments: Pt not showing improvement and will contact doctor office regarding other options. Does not seem vestibular, may be blood pressure, anemia, medication related. If there are questions or concerns regarding this patient's physical therapy, please feel free to call me at [phone]. Thank you for the referral of this patient. Sincerely, Josue Amor, DPT, OCS, CSCS <Electronically signed by Josue Amor DPT, OCS, CSCS> 12/13/18 0943 CC: JOSE MIGUEL HERRERA; Pedro Marie MD EBG Signed CBC W/DIFF, AUTOMATED Collected: 12/09/2018 Status: F Source: LIV 9:53 AM [facility] REPOSITORY TYPE CODE TESTS RESULT OUT OF RANGE REFERENCE UNITS LAB L100.1000 4.4-11.0 K/mm3 Normal WBC 5.9 LAB L100.1200 4.6-6.2 M/mm3 Low RBC 4.00 LAB L100.1300 13.0-16.5 g/dl Low HGB 10.0 LAB L100.1400 40-54 % Low HCT 32.1 LAB L100.1500 80-94 fL Normal MCV 80.3 LAB L100.1600 27.0-32.0 pg Low MCH 25.0 LAB L100.1700 32-36 g/gl Low MCHC 31.2 LAB L100.1810 11.6-14.6 % High RDW CV 17.4 LAB L100.1820 35.1-43.9 fl High RDW SD 51.1 LAB L100.1900 150-450 K/mm3 Low PLT 141 LAB L100.2000 6.2-12.0 fl Normal MPV 9.9 LAB L100.2100 47-70 % High NEUT% 71.8 LAB L100.2200 19-41 % Low LY% 15.9 LAB L100.2300 0-10 % Normal MONO% 8.9 LAB L100.2400 0-5 % Normal EO% 2.4 LAB L100.2500 0-1 % Normal BASO% 0.8 LAB L100.2550 0.0-0.9 % Normal IM GRAN % 0.200 Result Comment: IG% - Immature Granulocytes (promyelocytes, myelocytes and metamyelocytes) > 1% indicates that a LEFT SHIFT is Present. LAB L100.2620 2.0-7.7 X10 3/uL Normal Absolute Neut 4.3 LAB L100.2720 0.83-4.51 X10 3/ul Normal Absolute Lymph 0.94 Performed By: #### L100.0100, L500.2500 #### [facility] [address] [place], [place], [address] BASIC METABOLIC Collected: 12/09/2018 Status: F Source: [place] PROFILE (BMP) 9:53 AM [facility] REPOSITORY TYPE CODE TESTS RESULT OUT OF RANGE REFERENCE UNITS LAB L501.0100 74-106 mg/dL High GLU 167 Result Comment: Fasting Glucose result greater than or equal to 126 mg/dL suggests DIABETES MELLITUS per A.D.A. criteria. Please note revised GLUCOSE reference range effective 2017. LAB L501.1000 7-18 mg/dL High BUN 27 LAB L501.1100 0.70-1.30 mg/dL High CREAT,SERUM 1.60 Result Comment: The validity of the calculated GFR AND GFRAA in patients over 70 years has not been determined. Clinical correlation is essential. LAB L501.1110 >60 mL/min Low EST GFR 44 Result Comment: Non- GFR Calc LAB L501.1115 >60 mL/min Low EST GFR - AA 53 Result Comment: GFR Calc LAB L501.1300 10-20 RATIO Normal BUN/CRE 16.9 LAB L501.2200 8.5-10.1 mg/dL Low CA 8.1 LAB L501.5300 136-145 mmol/L NA Normal 139 LAB L501.5600 3.5-5.1 mmol/L K Normal 3.6 LAB L501.5900 98-107 mmol/L CL Normal 102 LAB L501.6100 21.0-32.0 mmol/L Normal CO2 28.0 LAB L501.6200 5-15 Normal GAP 9 Performed By: #### L100.0100, L500.2500 #### [facility] [address] [place], [address] INITAL EVALUATION (1) Observed: 12/01/2018 Status: F Source: [place] - PT 9:26 AM [facility] REPOSITORY [facility] Physical Therapy [facility] [place] [address] / REHABILITATION SERVICES INITIAL EVALUATION MR#: [id number] Acct: [id number] Name: TYRELL STANLEY Rep #: [id number] : 1935 82 From: Josue Amor DPT, MANJINDER, CSCS Referring DrTram: Status: REG RCR Insurance: [employer] SELF PAY INSURANCE Patient's Visit Information TYRELL STANLEY is a 82 year old M referred to Physical Therapy by JOSE MIGUEL HERRERA with a diagnosis of vertigo. Date of Evaluation: 11/21/18 Physical Therapist: Josue Amor DPT, MANJINDER, CSCS - Visit Plan Frequency: 1-2x /Week Duration: 2-4 Weeks Plan: 1-2x/week as needed. Check positional. I am suspicious of medication causing as he started meds around the same time. Not seeing obvious vestibular problems but patient willing to try the exercises adn they willc ommunicate with doctor RE: meds. - Subjective Findings: Has dementia says his who does the talking for him. Gets dizzy at times as he has to suddently hold counter. Has happened for 3-4 months insidious onset.He does not answer questions but she says it lasts a minute or two and then gone until next episode. Can happen sitting at table or standing at counter. Has cane and walker and uses them intermittently when he decides to. Had it this morning brushing his teeth. No falls that she knows of, has to hold on to things at times. No pain says he. On coumadin and other heart meds. Had AFIB and shocked it before. Basic aDLs are I. cookks and cleans. Spends day sitting and walking around house. - Objective Walks slow but I on firm flat surface, trasnfers I without UE. C/s aROM very limtied age appropriately, no pain. Romberg eo 30 adn ec 30. - B hallpike christian, - roll test. Oculomotor: convergence is slow L eye. - skew eye deviation. no nystagmus with gaze or head shake. pursuit and saccades are slow but asymptomatic. + L head thrust. VOR is slow but asymptomatic - Balance Scores Functional Gait Assessment Score: 23 % Disability: 23.3400 - Goals Goal 1:: abolish vertigo Goal Time Frame: 2-4 Weeks - Rehabilitation Potential Physical Therapy Diagnosis: Vertigo unknown etiology Rehabilitation Potential: Questionable - Anticipated Interventions Patient/Client Instruction: Educate patient on: Condition, Plan of Care Other: to diminish dizzyness. Comment: vestibular progression if helpful Other: to diminish vertigo. Thank you for the opportunity to evaluate your patient. For Medicare and Medicare HMO plans, please review the plan of care and approve it. It will need to be FAXED BACK to us at [phone] for Medicare purposes. For Medicare only, by signing this I certify the plan of care. Please let me know if there are questions or concerns regarding this plan of care. Physician Signature: Date: <Electronically signed by Josue Amor DPT, OCS, CSCS> 12/01/18 0926 CC: JOSE MIGUEL HERRERA; Pedro Marie MD EBG Signed FOOT MIN 3 VIEWS Observed: 10/10/2018 Status: F Source: [place] 11:02 AM [facility] REPOSITORY [facility] Imaging Services [address] [place] [address] Foot min 3 Views MR#: [id number] Acct: [id number] Name: TYRELL STANLEY Rep #: [id number] : 1935 M 82 From: Justin Castro MD PCP: Pedro Marie MD Status: REG CLI Study: Foot min 3 Views Date of Exam: 10/10/18 Exam# [id number] Ordering Dr: Pedro Marie MD STUDY: X-RAY - RIGHT FOOT CLINICAL: Male, 82 years old. Right medial foot pain. No evidence of injury. TECHNIQUE: 3 view(s) of the foot. COMPARISON: None. FINDINGS: There is an enthesophyte involving the posterior superior calcaneus at the site of insertion of the Achilles tendon. Plantar spur. Questionable tiny avulsion fracture involving the medial aspect of the tarsal navicular bone. Normal metatarsi. There is degenerative arthrosis of the metatarsophalangeal joint of the hallux . Normal tibial and fibular sesamoid bones. Normal interphalangeal joint of the great toe. Normal phalanges of the great toe. Normal second through fifth metatarsophalangeal joints. Normal interphalangeal joints and phalanges of the lesser toes. Mild degree of soft tissue swelling. RAD/Foot min 3 Views IMPRESSION: Questionable avulsion fracture along the medial aspect of the tarsal navicular bone. Overlying soft tissue swelling. Electronically Signed: Justin Castro MD at 11:33 EST Tel [phone], Service support , CC: Pedro Marie MD Office Aide: Signed CHEST PA AND LATERAL Observed: 09/12/2018 Status: F Source: [place] 10:08 AM [facility] REPOSITORY [facility] Imaging Services [address] [place] [address] Chest PA and Lateral MR#: [id number] Acct: [id number] Name: TYRELL STANLEY Rep #: [id number] : 1935 M 82 From: Tyrell Stacy MD PCP: Pedro Marie MD Status: REG CLI Study: Chest PA and Lateral Date of Exam: 09/12/18 Exam# [id number] Ordering Dr: Pedro Marie MD STUDY: X-RAY CHEST REASON FOR EXAM: Male, 82 years old. Pleural effusion, right. TECHNIQUE: PA and lateral chest COMPARISON: 08/15/2018 x-ray chest FINDINGS: Right shoulder arthroplasty. Generalized pulmonary hyperinflation and hyperlucency consistent with underlying COPD/emphysema. Mild blunting of the right costophrenic angle suspicious for small residual effusion, with right lung base atelectasis. No apparent effusion or significant atelectasis on the left. Normal cardiomediastinal silhouette, monalisa and pleural margins. No acute osseous or upper abdominal process. RAD/Chest PA and Lateral IMPRESSION: Small residual right lung base effusion with right lung base atelectasis. Electronically Signed: Tyrell Stacy, at 11:31 EDT Tel , Service support , CC: Pedro Marie MD Office Aide: Signed BASIC METABOLIC Collected: 09/09/2018 Status: F Source: [place] PROFILE (BMP) 9:01 AM [facility] REPOSITORY TYPE CODE TESTS RESULT OUT OF RANGE REFERENCE UNITS LAB L501.0100 74-106 mg/dL High GLU 117 Result Comment: Fasting Glucose result from 100 to 125 mg/dL suggests IMPAIRED HOMEOSTASIS per A.D.A. criteria. Please note revised GLUCOSE reference range effective 2017. LAB L501.1000 7-18 mg/dL High BUN 22 LAB L501.1100 0.70-1.30 mg/dL High CREAT,SERUM 1.43 Result Comment: The validity of the calculated GFR AND GFRAA in patients over 70 years has not been determined. Clinical correlation is essential. LAB L501.1110 >60 mL/min Low EST GFR 50 Result Comment: Non- GFR Calc LAB L501.1115 >60 mL/min Normal EST GFR - AA 61 Result Comment: GFR Calc LAB L501.1300 10-20 RATIO Normal BUN/CRE 15.4 LAB L501.2200 8.5-10.1 mg/dL Low CA 8.4 LAB L501.5300 136-145 mmol/L NA Normal 139 LAB L501.5600 3.5-5.1 mmol/L K Normal 3.8 LAB L501.5900 98-107 mmol/L CL Normal 104 LAB L501.6100 21.0-32.0 mmol/L Normal CO2 29.0 LAB L501.6200 5-15 Normal GAP 6 Performed By: #### L500.2500, L501.9940 #### [facility] [address] [place], [address] PSA,TOTAL- DIAGNOSTIC Collected: 09/09/2018 Status: F Source: [place] 9:01 [facility] REPOSITORY TYPE CODE TESTS RESULT OUT OF RANGE REFERENCE UNITS LAB L501.9940 0.0-4.0 ng/mL PSA, Normal DIAGNOSTIC 0.17 Result Comment: This test was performed using the TPSA assay method for the [employer] chemistry system. Values obtained with different assay methods cannot be used interchangably. When changing PSA assays in the course of monitoring a patient, additional sequential testing should be carried out to confirm baseline values. Performed By: #### L500.2500, L501.9940 #### [facility] [address] [place], [address] DISCHARGE SUMMARY Observed: 09/05/2018 Status: F Source: [place] 10:55 [facility] REPOSITORY [facility] Medical Records Department [address] [place] [address] Discharge Summary 08/17/18 1149 MR#: [id number] Acct: [id number] Name: TYRELL STANLEY Rep #: [id number] : 1935 82 From: Jayleen Barger MD PCP: Pedro Marie MD Status: DIS KADEN Y Location: MS3 [id number] ADDENDUM by Jayleen Barger MD on 09/05/18 at 1055 Code Visit Patient was seen and examined on the day of discharge. Physical findings were as follows: General: Alert, Oriented x3, Cooperative, No apparent distress HEENT: Atraumatic, PERRLA, EOMI, Normocephalic Oral: Moist Mucosa Neck: Supple, No JVD, Negative Carotid Bruits Lungs: Clear to auscultation, Normal air movement Cardiovascular: Regular rate, Regular Rhythm, Normal S1, Normal S2, No murmurs Abdomen: Bowel Sounds Present, Soft, Non Tender, Non-Distended, No Hepato-splenomegaly Extremities: No edema Skin: No rashes, No breakdown Musculoskeletal: No Tenderness to Palpation of Joints or Extremities Lymphatic: No Cervical, Supraclavicular, or Inguinal Adenopathy Neurological: Cranial nerves II-XII grossly intact, Neuro grossly intact Psych/Mental Status: Normal Affect, Appropriate 09/05/18 1055 <Electronically signed by Jayleen Barger MD> Date Jayleen Barger MD cc: Jayleen Barger MD; Pedro Marie MD * Signed Discharge Date and Diagnosis Date of Admission: 08/16/18 Date of Discharge: 08/17/18 - Primary Discharge Diagnosis Active and Suspected Problems (Last Reviewed 04/04/18 @ 15:08 by Shahla Juan) Community acquired bacterial pneumonia (Acute) - Secondary Discharge Diagnosis Chronic Problems (Last Reviewed 04/04/18 @ 15:08 by Shahla Juan) Nonrheumatic mitral (valve) insufficiency (Chronic) Non-rheumatic tricuspid valve insufficiency (Chronic) Non-rheumatic aortic stenosis (Chronic) History of left heart catheterization (Chronic 01/2014) 05/02/[address] [facility]; 01/29/[address] [facility]: coronaries angiographically normal, pulmonary htn by RV eval, EF at that time was 45-50% Chronic diastolic (congestive) heart failure (Chronic) History of pleural effusion (Chronic) 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 (Chronic) correction current use of 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) Hypertension (Chronic) Chronic renal failure, stage 3 (moderate) (Chronic) History of anxiety disorder (Chronic) Generalized osteoarthritis (Chronic) History of gout (Chronic) Mild dementia (Chronic) Rheumatoid arthritis (Chronic) Diabetes mellitus, type II (Chronic) Generalized weakness (Chronic) History of prostate cancer (Chronic) Status post radiotherapy Anemia of chronic disease (Chronic) due to CRF and RA PAF (paroxysmal atrial fibrillation) (Chronic) Hospital Course and Treatment Imaging Results: Clinical Impression(s) from Imaging Studies Abdomen/Pelvis CT 08/15/18 21:42 IMPRESSION: 1. Mild right lower lobe infiltrate and small left pleural effusion. 2. Thickening of the gastric wall in the region of the gastric antrum. Gastritis is difficult to exclude. 3. Diverticulosis without evidence of acute diverticulitis. 4. No evidence of acute appendicitis. 5. Prominent prostate. Electronically Signed: Eduard Christian MD at 23:32 EDT Tel , Service support , Chest X-Ray 08/15/18 23:40 IMPRESSION: Right basilar atelectasis and right pleural effusion. Left basilar atelectasis. Electronically Signed: Kip Leon MD at 0:04 EDT Tel , Service support , None Operations: None Procedures: None Summary of Care Provided: 82-year-old male with past medical history of multiple comorbidities including hypertension, CKD, dementia, type II DM, history of prostate cancer who comes in complains of abdominal pain and was found to have right lower lobe pneumonia on CT scan. 1. Acute community-acquired pneumonia, initially managed on doxycycline because of reported allergy to penicillin which was later found to be [id number]. Patient was switched to ceftriaxone and azithromycin and monitored for 48 hours with improvement in his general condition. He was discharged home on Augmentin. He had complained of urinary frequency during the hospital stay, UA was not suggestive of UTI, bladder scan was negative, urine cultures were sent which are growing mixed gram-positive organisms, patient had no fever or leukocytosis. He was on ceftriaxone and eventually on Augmentin. He was asked to follow-up with his primary care doctor Rest of his chronic medical conditions including cognitive impairment, hypertension, paroxysmal atrial fibrillation were all stable during the hospital stay Discharge Diet: Low fat/ Low Cholesterol, 2000 mg Sodium Diet Discharge Activity: Return to Normal Activity Home Medications: Medications to take at Discharge Cholecalciferol (Vitamin D3) [Vitamin D3] 1,000 unit PO DAILY 12/25/13 Aspirin [Aspirin, Baby] 81 mg PO QHS 11/17/14 Cyanocobalamin [Vitamin B12] 1,000 mcg PO DAILY@0800 11/17/14 Pantoprazole Sodium [Protonix] 40 mg PO DAILY 11/17/14 Dicyclomine HCl [Bentyl] 10 mg PO DAILY 03/15/17 Loratadine 10 mg PO DAILY PRN 03/15/17 Metformin HCl 500 mg PO BID 03/15/17 Lisinopril [Zestril] 40 mg PO DAILY #30 tab 03/16/17 magnesium oxide 400 mg tablet 400 mg PO DAILY 12/30/17 multivitamin tablet 1 tab PO QDAY 12/30/17 warfarin 2 mg tablet 2 mg PO MOTH 12/30/17 warfarin 2 mg tablet 4 mg PO SUTUWEFRSA 12/30/17 carvedilol 25 mg tablet 12.5 mg PO BID #180 tab 07/14/18 furosemide 40 mg tablet 20 mg PO DAILY tab 07/25/18 amiodarone 200 mg tablet 100 mg PO QHS #45 tab 08/04/18 Amlodipine [Norvasc] 5 mg PO DAILY #30 tab 08/17/18 Amoxicillin/Potassium Clav [Augmentin 875-125 Tablet] 1 ea PO BID #10 tab 08/17/18 Following Prescrptions Were Given to Patient: Amlodipine [Norvasc] 5 mg PO DAILY #30 tab Amoxicillin/Potassium Clav [Augmentin 875-125 Tablet] 1 ea PO BID #10 tab Other Amb Orders: Basic Metabolic Profile (BMP) Location: Laboratory Primary Care Physician: Pedro Marie MD [Primary Care Provider] - Please follow up with your Primary Care Physician in: within 2 weeks Disposition: Home Minutes spent on discharge:: 40 Patient Condition:: Stable Medical Necessity - Tobacco Use Smoking Status: Never smoker Tobacco Use: Non-smoker Meaningful Use Info Meaningful Use Diagnoses (Choose all that apply): None applicable Code Visit Inpatient E AND M: 25262 Disch Hosp 08/20/18 1708 <Electronically signed by Jayleen Barger MD> Date Jayleen Barger MD Cosigner Signature (if applicable): Date CC: Jayleen Barger MD; Pedro Marie MD Signed BASIC METABOLIC Collected: 08/24/2018 Status: F Source: [place] PROFILE (BMP) 10:41 AM [facility] REPOSITORY TYPE CODE TESTS RESULT OUT OF RANGE REFERENCE UNITS LAB L501.0100 74-106 mg/dL High GLU 118 Result Comment: Fasting Glucose result from 100 to 125 mg/dL suggests IMPAIRED HOMEOSTASIS per A.D.A. criteria. Please note revised GLUCOSE reference range effective 2017. LAB L501.1000 7-18 mg/dL High BUN 24 LAB L501.1100 0.70-1.30 mg/dL High CREAT,SERUM 1.51 Result Comment: The validity of the calculated GFR AND GFRAA in patients over 70 years has not been determined. Clinical correlation is essential. LAB L501.1110 >60 mL/min Low EST GFR 47 Result Comment: Non- GFR Calc LAB L501.1115 >60 mL/min Low EST GFR - AA 57 Result Comment: GFR Calc LAB L501.1300 10-20 RATIO Normal BUN/CRE 15.9 LAB L501.2200 8.5-10.1 mg/dL CA Normal 8.5 LAB L501.5300 136-145 mmol/L NA Normal 141 LAB L501.5600 3.5-5.1 mmol/L K Normal 3.9 LAB L501.5900 98-107 mmol/L CL Normal 106 LAB L501.6100 21.0-32.0 mmol/L Normal CO2 29.0 LAB L501.6200 5-15 Normal GAP 6 Performed By: #### L500.2500 #### [facility] [address] [place], [address] DISCHARGE INSTRUCTION Observed: 08/17/2018 Status: F Source: [place] 11:48 AM [facility] REPOSITORY [facility] Medical Records Department [address] [place] [address] Instructions for Home/Discharge Instructions 08/17/18 1137 MR#: [id number] Acct: [id number] Name: TYRELL STANLEY Rep #: [id number] : 1935 82 From: Jayleen Barger MD PCP: Pedro Marie MD Status: ADM KADEN - Discharge Diagnoses Current Active Problems: Current Active and Chronic Problems (Last Reviewed 04/04/18 @ 15:08 by Shahla Juan) Community acquired bacterial pneumonia (Acute) Reason(s) for Visit for Discharge Instructions: Abdominal pain, pneumonia You will use the following diet at home:: Regular Your food should be the consistency of: Regular Your liquids should be the consistency of: Regular/Thin Discharge Activity: Return to Normal Activity Additional Instructions: Take note of changes in your blood pressure medications. Continue to keep yourself hydrated. You will need to repeat your blood work in 1 week. You should follow-up as scheduled for monitoring of your INR with your primary care doctor. Continue to use the incentive spirometer. Allergies/Adverse Reactions: Allergies cimetidine HCl [From Tagamet] Allergy (Verified 08/15/18 21:21) Rash ciprofloxacin [From Cipro] Allergy (Verified 08/15/18 21:21) Rash amoxicillin trihydrate [From Augmentin] Adverse Reaction (Verified 08/15/18 21:21) Abd cramps/diarrhea cefdinir [From Omnicef] Adverse Reaction (Verified 08/15/18 21:21) Diarrhea indomethacin sodium [From Indocin] Adverse Reaction (Verified 08/15/18 21:21) Nausea memantine HCl [From Namenda] Adverse Reaction (Verified 08/15/18 21:21) dizziness potassium clavulanate [From Augmentin] Adverse Reaction (Verified 08/15/18 21:21) Abd cramps/diarrhea sitagliptin phosphate [From Januvia] Adverse Reaction (Verified 08/15/18 21:21) Nausea Medications to take at Discharge Cholecalciferol (Vitamin D3) [Vitamin D3] 1,000 unit PO DAILY 12/25/13 Aspirin [Aspirin, Baby] 81 mg PO QHS 11/17/14 Cyanocobalamin [Vitamin B12] 1,000 mcg PO DAILY@0800 11/17/14 Pantoprazole Sodium [Protonix] 40 mg PO DAILY 11/17/14 Dicyclomine HCl [Bentyl] 10 mg PO DAILY 03/15/17 Loratadine 10 mg PO DAILY PRN 03/15/17 Metformin HCl 500 mg PO BID 03/15/17 Lisinopril [Zestril] 40 mg PO DAILY #30 tab 03/16/17 magnesium oxide 400 mg tablet 400 mg PO DAILY 12/30/17 multivitamin tablet 1 tab PO QDAY 12/30/17 warfarin 2 mg tablet 2 mg PO MOTH 12/30/17 warfarin 2 mg tablet 4 mg PO SUTUWEFRSA 12/30/17 carvedilol 25 mg tablet 12.5 mg PO BID #180 tab 07/14/18 furosemide 40 mg tablet 20 mg PO DAILY tab 07/25/18 amiodarone 200 mg tablet 100 mg PO QHS #45 tab 08/04/18 Amlodipine [Norvasc] 10 mg PO QHS #30 tab 08/17/18 Amoxicillin/Potassium Clav [Augmentin 875-125 Tablet] 1 ea PO BID #10 tab 08/17/18 The following prescriptions were given: Amlodipine [Norvasc] 10 mg PO QHS #30 tab Orders to be completed after discharge: Basic Metabolic Profile (BMP) Location: Laboratory Primary Care Physician: Pedro Marie MD [Primary Care Provider] - Please follow up with your Primary Care Physician in: within 2 weeks Test Results: Test results from this visit will be discussed in further detail at your follow-up appointment, if applicable. Proposed Discharge Date: 08/17/18 08/17/18 1148 <Electronically signed by Jayleen Barger MD> Date Jayleen Barger MD CC: Pedro Marie MD PROTHROMBIN TIME W/INR Collected: 08/17/2018 Status: F Source: [place] 5:50 AM [facility] REPOSITORY TYPE CODE TESTS RESULT OUT OF RANGE REFERENCE UNITS LAB L300.4150 11.7-14.9 SECONDS High PROTIME 26.8 LAB L300.4200 Normal INR 2.5 Performed By: #### L300.3900 #### [facility], [address] BASIC METABOLIC Collected: 08/17/2018 Status: F Source: LIV PROFILE (BMP) 5:50 AM [facility] REPOSITORY TYPE CODE TESTS RESULT OUT OF RANGE REFERENCE UNITS LAB L501.0100 74-106 mg/dL High GLU 121 Result Comment: Fasting Glucose result from 100 to 125 mg/dL suggests IMPAIRED HOMEOSTASIS per A.D.A. criteria. Please note revised GLUCOSE reference range effective 2017. LAB L501.1000 7-18 mg/dL High BUN 20 LAB L501.1100 0.70-1.30 mg/dL Normal CREAT,SERUM 1.27 Result Comment: The validity of the calculated GFR AND GFRAA in patients over 70 years has not been determined. Clinical correlation is essential. LAB L501.1110 >60 mL/min Low EST GFR 58 Result Comment: Non- GFR Calc LAB L501.1115 >60 mL/min Normal EST GFR - AA 70 Result Comment: GFR Calc LAB L501.1255 ml/min Normal Estimated CRCL 39.01 LAB L501.1300 10-20 RATIO Normal BUN/CRE 15.7 LAB L501.2200 8.5-10 mg/dL Low .1 CA 8.4 LAB L501.5300 136-14 mmol/L Normal 5 NA 141 LAB L501.5600 3.5-5. mmol/L Normal 1 K 3.5 LAB L501.5900 98-107 mmol/L Normal CL 102 LAB L501.6100 21.0-3 mmol/L Normal 2.0 CO2 29.0 LAB L501.6200 5-15 Normal GAP 10 Performed By: #### L500.2500 #### [facility] [address] [place], [place] [address], [address] CBC W/DIFF, AUTOMATED Collected: 08/17/2018 Status: F Source: [place] 5:50 AM [facility] REPOSITORY TYPE CODE TESTS RESULT OUT OF RANGE REFERENCE UNITS LAB L100.1000 4.4-11.0 K/mm3 Normal WBC 6.6 LAB L100.1200 4.6-6.2 M/mm3 Low RBC 4.32 LAB L100.1300 13.0-16.5 g/dl Low HGB 11.0 LAB L100.1400 40-54 % Low HCT 34.1 LAB L100.1500 80-94 fL Low MCV 78.9 LAB L100.1600 27.0-32.0 pg Low MCH 25.5 LAB L100.1700 32-36 g/gl Normal MCHC 32.3 LAB L100.1810 11.6-14.6 % High RDW CV 17.9 LAB L100.1820 35.1-43.9 fl High RDW SD 51.4 LAB L100.1900 150-450 K/mm3 Low PLT 149 LAB L100.2000 6.2-12.0 fl Normal MPV 9.4 LAB L100.2100 47-70 % High NEUT% 74.1 LAB L100.2200 19-41 % Low LY% 13.7 LAB L100.2300 0-10 % Normal MONO% 9.0 LAB L100.2400 0-5 % Normal EO% 2.4 LAB L100.2500 0-1 % Normal BASO% 0.6 LAB L100.2550 0.0-0.9 % Normal IM GRAN % 0.200 Result Comment: IG% - Immature Granulocytes (promyelocytes, myelocytes and metamyelocytes) > 1% indicates that a LEFT SHIFT is Present. LAB L100.2620 2.0-7.7 X10 3/uL Normal Absolute Neut 4.9 LAB L100.2720 0.83-4.51 X10 3/ul Normal Absolute Lymph 0.91 Performed By: #### L100.0100 #### [facility] [address] [place], [address] URINALYSIS, COMPLETE Collected: 08/16/2018 Status: F Source: [place] 3:55 PM [facility] REPOSITORY Order Comment: Order Date: 08/16/18 How was Urine Obtained? CLEAN CATCH TYPE CODE TESTS RESULT OUT OF RANGE REFERENCE UNITS LAB L400.3000 Yellow COLOR Normal Yellow LAB L400.3050 Clear Normal CLARITY Clear LAB L400.3200 Normal mg/dl Normal GLUCOSE, UR Normal LAB L400.3300 Negative mg/dL Normal BILIRUBIN URINE Negative LAB L400.3400 Negative mg/dl Normal KETONE UR Negative LAB L400.3465 1.002-1.030 Normal SP.GR. DIPSTX 1.005 LAB L400.3550 5.0 - 8.0 pH UR Normal 7.0 LAB L400.3600 Negative mg/dl High PROT DIPSTX 100 LAB L400.3700 Normal mg/dl Normal UROBILI Normal LAB L400.3750 Negative Normal NITRITE UR Negative LAB L400.3780 Negative /ul High 25 OCCULT BLOOD-UR LAB L400.3800 Negative /ul LEUK Normal ESTERASE Negative LAB L400.4050 0-5 /hpf WBC 0 Normal SEEN LAB L400.4100 0-5 /hpf Normal RBC-UA 0-5 SEEN LAB L400.4150 0-5 /hpf SQUAM 0 Normal EPI SEEN LAB L400.4300 None Seen /hpf 0 Normal BACTERIA SEEN LAB L400.4350 <or=2+ /hpf 0 Normal MUCUS, URINE SEEN Performed By: #### L400.0001 #### [facility] [address] [place], [address] HISTORY AND PHYSICAL Observed: 08/16/2018 Status: F Source: [place] EXAM 12:45 AM [facility] REPOSITORY [facility] Medical Records Department [address] [place] [address] History and Physical 08/16/18 0037 MR#: [id number] Acct: [id number] Name: TYRELL STANLEY Rep #: [id number] : 1935 82 From: Bhargav Mcleod MD PCP: Pedro Marie MD Status: ADM KADEN Y Location: [place] [address] Problem List (1) Community acquired bacterial pneumonia Status: Acute (2) Nonrheumatic mitral (valve) insufficiency Status: Chronic (3) Non-rheumatic aortic stenosis Status: Chronic (4) Chronic diastolic (congestive) heart failure Status: Chronic (5) History of pleural effusion Status: Chronic (6) 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 Status: Chronic (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 (8) Hypertension Status: Chronic Qualifiers: (9) Chronic renal failure, stage 3 (moderate) Status: Chronic (10) History of anxiety disorder Status: Chronic (11) Generalized osteoarthritis Status: Chronic (12) History of gout Status: Chronic (13) Mild dementia Status: Chronic (14) Diabetes mellitus, type II Status: Chronic (15) Generalized weakness Status: Chronic (16) History of prostate cancer Status: Chronic Comment: Status post radiotherapy (17) PAF (paroxysmal atrial fibrillation) Status: Chronic History of Present Illness Date of Admission: 08/16/18 Chief Complaint: abdominal pain The patient is a 82 year old male patient who presented to the ER with right side abdominal pain for the past two days. CT scan is negative for acute abdominal findings however there is a right lower lobe pulmonary infiltrate. He had received morphine for his pain earlier which did relieve his pain. He will be admitted overnight for treatment of his pneumonia. Due to advanced age and having received morphine for his pain it was deemed reasonable to admit for observation and treatment of pneumonia. Past Medical History Past Medical History (Chronic Problems): Chronic Problems (Last Reviewed 04/04/18 @ 15:08 by Shahla Juan) Nonrheumatic mitral (valve) insufficiency (Chronic) Non-rheumatic tricuspid valve insufficiency (Chronic) Non-rheumatic aortic stenosis (Chronic) History of left heart catheterization (Chronic 01/2014) 05/02/[address] [facility]; 01/29/[address] [facility]: coronaries angiographically normal, pulmonary htn by RV eval, EF at that time was 45-50% Chronic diastolic (congestive) heart failure (Chronic) History of pleural effusion (Chronic) 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 (Chronic) correction current use of 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) Hypertension (Chronic) Chronic renal failure, stage 3 (moderate) (Chronic) History of anxiety disorder (Chronic) Generalized osteoarthritis (Chronic) History of gout (Chronic) Mild dementia (Chronic) Rheumatoid arthritis (Chronic) Diabetes mellitus, type II (Chronic) Generalized weakness (Chronic) History of prostate cancer (Chronic) Status post radiotherapy Anemia of chronic disease (Chronic) due to CRF and RA PAF (paroxysmal atrial fibrillation) (Chronic) Medical History: Medical History (Last Reviewed 04/04/18 @ 15:08 by Shahla Juan) Nonrheumatic mitral (valve) insufficiency (Chronic) I34.0 Non-rheumatic tricuspid valve insufficiency (Chronic) I36.1 Non-rheumatic aortic stenosis (Chronic) I35.0 Chronic diastolic (congestive) heart failure (Chronic) I50.32 History of pleural effusion (Chronic) Z87.09 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 (Chronic) correction current use of 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) Z79.01 Hypertension (Chronic) I10 Chronic renal failure, stage 3 (moderate) (Chronic) N18.3 History of anxiety disorder (Chronic) Z86.59 Generalized osteoarthritis (Chronic) M15.9 History of gout (Chronic) Z87.39 Mild dementia (Chronic) F03.90 Rheumatoid arthritis (Chronic) M06.9 Diabetes mellitus, type II (Chronic) E11.9 History of prostate cancer (Chronic) Status post radiotherapy Anemia of chronic disease (Chronic) D63.8 due to CRF and RA PAF (paroxysmal atrial fibrillation) (Chronic) I48.0 Syncope and collapse R55 Allergies cimetidine HCl [From Tagamet] Allergy (Verified 08/15/18 21:21) Rash ciprofloxacin [From Cipro] Allergy (Verified 08/15/18 21:21) Rash amoxicillin trihydrate [From Augmentin] Adverse Reaction (Verified 08/15/18 21:21) Abd cramps/diarrhea cefdinir [From Omnicef] Adverse Reaction (Verified 08/15/18 21:21) Diarrhea indomethacin sodium [From Indocin] Adverse Reaction (Verified 08/15/18 21:21) Nausea memantine HCl [From Namenda] Adverse Reaction (Verified 08/15/18 21:21) dizziness potassium clavulanate [From Augmentin] Adverse Reaction (Verified 08/15/18 21:21) Abd cramps/diarrhea sitagliptin phosphate [From Januvia] Adverse Reaction (Verified 08/15/18 21:21) Nausea Home Medications: Ambulatory Orders Medication Instructions Recorded Cholecalciferol (Vitamin D3) 1,000 unit PO DAILY 12/25/13 Surgical History: Surgical History (Last Updated 07/25/18 @ 09:23 by Estelle Wilder) History of left heart catheterization (Chronic) Onset Date: 01/2014 Z98.890 05/02/[address] [facility]; 01/29/[address] [facility]: coronaries angiographically normal, pulmonary htn by RV eval, EF at that time was 45-50% History of bilateral inguinal hernia repair Z98.890, Z87.19 History of cholecystectomy Onset Date: 1989 Z90.49 History of left knee replacement Z96.652 History of right shoulder replacement Z96.611 History of tonsillectomy Z90.89 Surgical History: cholecystectomy, total knee arthroplasty Psychiatric History: No pertinent psych hx Smoking Status: Never smoker - *Family History Maternal Family History: Family History (Last Reviewed 07/25/18 @ 09:23 by Estelle Wilder) Father CAD (coronary artery disease) Myocardial infarction Brother Diabetes History Items: No pertinent history Paternal Family History: Family History (Last Reviewed 07/25/18 @ 09:23 by Estelle Wilder) Father CAD (coronary artery disease) Myocardial infarction Brother Diabetes History Items: No pertinent history Review of Systems Constitutional: Denies: Chills, Fever, Weight Change HEENT: Denies: Head Aches, Sinus Congestion, Sinus Drainage Cardiovascular: Denies: Chest Pain, Palpitations Respiratory: Denies: Cough, Shortness of breath at rest, Sputum production Gastrointestinal: Reports: Abdominal Pain. Denies: Nausea, Vomiting Genitourinary: Denies: Dysuria Musculoskeletal: Denies: Joint Pain, Joint Tenderness Skin: Denies: Rash, Wounds Neurological: Denies: Numbness, Tingling, Focal weakness Psychiatric: Denies: Anxiety, Depression, Homicidal Ideations, Suicidal Ideations Hematologic/ Lymphatic: Denies: Easy Bruising, Easy Bleeding VTE Information - Inpt Only VTE Present on Admission: No VTE Mechan Device Prophylaxis: None VTE Pharm Prophylaxis ordered?: No Patient Problems: Active and Suspected Problems (Last Reviewed 04/04/18 @ 15:08 by Shahla Juan) Community acquired bacterial pneumonia (Acute) - Physical Exam General: Alert, Cooperative HEENT: Atraumatic, Normocephalic Neck: Supple, Negative Carotid Bruits Lungs: Clear to auscultation, Normal air movement Cardiovascular: Normal S1, Normal S2, No murmurs, Irregular Rate Abdomen: Bowel Sounds Present, Soft, Non Tender Extremities: No edema Skin: No rashes Musculoskeletal: No Tenderness to Palpation of Joints or Extremities Neurological: Neuro grossly intact Psych/Mental Status: Normal Affect, Appropriate Vital Signs Temp Pulse Resp BP Pulse Ox 98.3 F 65 18 179/87 H 96 08/15/18 21:21 08/15/18 23:33 08/15/18 23:33 08/15/18 23:33 08/15/18 23:33 Assessment/Plan All Active Problems (Last Reviewed 04/04/18 @ 15:08 by Shahla Juan) Community acquired bacterial pneumonia (Acute) Chest pain (Resolved) Dehydration (Resolved) Hypomagnesemia (Resolved) Plan - admit for observation to general medical floor - due to allergies will continue doxycycline initiated in the ER - continue routine home medications - hold further pain medications for now - if stable tomorrow patient can be released with PO antibiotic therapy Code Visit OBSV Abilio SURESH M: [id number] Initial observation care L2 08/16/18 0045 <Electronically signed by Bhargav Mcleod MD> Date Bhargav Mcleod MD Cosigner Signature: Date (if applicable) CC: Pedro Marie MD; Bhargav Mcleod MD Signed EMERGENCY DEPARTMENT Observed: 08/16/2018 Status: F Source: [place] SUMMARY 12:12 AM [facility] REPOSITORY [facility] Medical Records Department [address] [place] [address] Emergency Department Summary 08/15/18 2357 MR#: [id number] Acct: [id number] Name: TYRELL STANLEY Rep #: [id number] : 1935 82 From: Ozzie Cho MD PCP: Pedro Marie MD Status: REG ER - ER Visit Summary Date of Service: 08/15/18 Chief Complaint: Abdominal pain History of Present Illness: The patient is a 82 M with right upper quadrant abdominal pain for the past 2 days. This came on gradually. The pain radiates to his back. He tried taking Mylanta but it does not seem to help. Associated with nausea but no vomiting or other GI symptoms. No shortness of breath or cough. No fevers. He never had this in the past. He has a history of atrial fibrillation and takes Coumadin. He also reports a history of diabetes and pleural effusion. He has a history of cholecystectomy. Physical Examination: Blood pressure 187/82. Otherwise vitals unremarkable. Afebrile. Alert and oriented. No acute distress. Heart regular rate and rhythm. Lungs clear bilaterally. Right upper quadrant tender to palpation with no guarding or rebound. Skin appears normal. Test Results: Hemoglobin 10.5, stable. Glucose 184, BUN 24, creatinine 1.50, stable. Hepatic panel and lipase normal. INR 2.3. Urinalysis shows elevated leukoesterase and red cells but is otherwise unremarkable. CT of his abdomen showed a right lower lobe infiltrate and a mild left pleural effusion. He has a thickened gastric wall, diverticulosis without diverticulitis, no sign of appendicitis, and a prominent prostate. Emergency Department Course and Treatment: Patient presents with right upper quadrant pain and nausea. I did check a CT and labs. He has a right lower lobe infiltrate. I suspect this is causing his symptoms. Chest x-ray is fairly unremarkable. Official read is pending. Patient treated with doxycycline. His curb 65 and port scores indicate moderate risk and recommend admission. Patient was discussed with the hospitalist will be admitted for further care. Treatment Plan: As above Disposition: Admit Impression: 1. Community acquired pneumonia This note was generated with [employer] dictation software. It may contain incorrect words, spelling, and punctuation that were not noted in review of the chart prior to signing ED Disposition - Plan for ED Patient: Chief Complaint: Abd Pain Referrals: Pedro Marie MD [Primary Care Provider] - What to do if you have Problems For any increased pain, shortness of breath, bleeding, nausea or vomiting, chest pain, or any unexpected problems, contact your Primary Care Provider. Call [facility] ([phone]) or report to the closest Emergency Room. Call 911 if necessary. 08/16/18 0012 <Electronically signed by Ozzie Cho MD> Date Ozzie Cho MD Cosigner Signature (If Indicated): Date CC: Pedro Marie MD Observed: 08/16/2018 Status: F Source: [place] CULTURE, BLOOD (WB) 12:01 AM [facility] REPOSITORY No growth in 5 days. Performed By: #### M200.1000 #### [place] [facility] [address] [place], [address] Observed: 08/16/2018 Status: F Source: [place] CULTURE, URINE 12:00 AM [facility] REPOSITORY Urine Culture ORGANISM 1: Mixed Gram Positive Organisms Brillion Count 1000-10,000 MIX CULTURE Mixed contaminants. Submit a new specimen if indicated. Performed By: #### M100.0650 #### [facility] [address] [place], [address] Observed: 08/16/2018 Status: F Source: [place] CULTURE, BLOOD (WB) 12:00 AM [facility] REPOSITORY BC No growth in 5 days. Performed By: #### M200.1000 #### [facility] [address] [place], [address] CHEST 1 VIEW Observed: 08/15/2018 Status: F Source: [place] (PORTABLE) 11:39 PM [facility] REPOSITORY [facility] Imaging Services [address] [place] [address] Chest 1 View (Portable) MR#: [id number] Acct: [id number] Name: TYRELL STANLEY Rep #: [id number] : 1935 82 From: Kip Leon MD PCP: Pedro Marie MD Status: REG ER Study: Chest 1 View (Portable) Date of Exam: 08/15/18 Exam# [id number] Ordering Dr: Ozzie Cho MD STUDY: X-RAY CHEST REASON FOR EXAM: Male, 82 years old. Pneumonia TECHNIQUE: Single frontal view of the chest. COMPARISON: 06/10/2017, CT abdomen 08/15/2018 FINDINGS: Right basilar atelectasis and right pleural effusion. Left basilar atelectasis. Increasing prominence of the cardiac silhouette. Normal mediastinum and monalisa. Normal visualized pulmonary arteries. There is atherosclerotic tortuosity of the aortic arch and descending thoracic aorta. Normal visualized thoracic spine. Right shoulder arthroplasty. There is no demonstrated abnormality of the visualized soft tissue structures of the upper abdomen. RAD/Chest 1 View (Portable) IMPRESSION: Right basilar atelectasis and right pleural effusion. Left basilar atelectasis. Electronically Signed: Kip Leon MD at 0:04 EDT Tel , Service support , CC: Ozzie Cho MD; Pedro Marie MD Office Aide: Signed PROTHROMBIN TIME W/INR Collected: 08/15/2018 Status: F Source: [place] 10:25 PM [facility] REPOSITORY TYPE CODE TESTS RESULT OUT OF RANGE REFERENCE UNITS LAB L300.4150 11.7-14.9 SECONDS High PROTIME 25.2 LAB L300.4200 Normal INR 2.3 Performed By: #### L300.3900 #### [facility] [address] [place], [address] URINALYSIS, COMPLETE Collected: 08/15/2018 Status: F Source: [place] 10:19 PM [facility] REPOSITORY Order Comment: How was Urine Obtained? CLEAN CATCH TYPE CODE TESTS RESULT OUT OF RANGE REFERENCE UNITS LAB L400.3000 Yellow COLOR Normal Yellow LAB L400.3050 Clear Normal CLARITY Clear LAB L400.3200 Normal mg/dl Normal GLUCOSE, UR Normal LAB L400.3300 Negative mg/dL Normal BILIRUBIN URINE Negative LAB L400.3400 Negative mg/dl Normal KETONE UR Negative LAB L400.3465 1.002-1.030 Normal SP.GR. DIPSTX 1.010 LAB L400.3550 5.0 - 8.0 pH UR Normal 7.0 LAB L400.3600 Negative mg/dl High PROT DIPSTX 100 LAB L400.3700 Normal mg/dl Normal UROBILI Normal LAB L400.3750 Negative Normal NITRITE UR Negative LAB L400.3780 Negative /ul High 25 OCCULT BLOOD-UR LAB L400.3800 Negative /ul High LEUK ESTERASE 100 LAB L400.4050 0-5 /hpf WBC Normal 0-5 SEEN LAB L400.4100 0-5 /hpf Normal RBC-UA 5-10 SEEN LAB L400.4150 0-5 /hpf SQUAM Normal EPI 0-5 SEEN LAB L400.4300 None Seen /hpf Normal BACTERIA RARE LAB L400.4350 <or=2+ /hpf 0 Normal MUCUS, URINE SEEN Performed By: #### L400.0001 #### [facility] [address] [place], [address] CBC W/DIFF, AUTOMATED Collected: 08/15/2018 Status: F Source: [place] 9:55 PM [facility] REPOSITORY TYPE CODE TESTS RESULT OUT OF RANGE REFERENCE UNITS LAB L100.1000 4.4-11.0 K/mm3 Normal WBC 6.0 LAB L100.1200 4.6-6.2 M/mm3 Low RBC 4.18 LAB L100.1300 13.0-16.5 g/dl Low HGB 10.5 LAB L100.1400 40-54 % Low HCT 33.2 LAB L100.1500 80-94 fL Low MCV 79.4 LAB L100.1600 27.0-32.0 pg Low MCH 25.1 LAB L100.1700 32-36 g/gl Low MCHC 31.6 LAB L100.1810 11.6-14.6 % High RDW CV 18.1 LAB L100.1820 35.1-43.9 fl High RDW SD 52.6 LAB L100.1900 150-450 K/mm3 Normal PLT 152 LAB L100.2000 6.2-12.0 fl Normal MPV 9.1 LAB L100.2100 47-70 % High NEUT% 70.3 LAB L100.2200 19-41 % Low LY% 16.4 LAB L100.2300 0-10 % Normal MONO% 9.1 LAB L100.2400 0-5 % Normal EO% 3.2 LAB L100.2500 0-1 % Normal BASO% 0.8 LAB L100.2550 0.0-0.9 % Normal IM GRAN % 0.200 Result Comment: IG% - Immature Granulocytes (promyelocytes, myelocytes and metamyelocytes) > 1% indicates that a LEFT SHIFT is Present. LAB L100.2620 2.0-7.7 X10 3/uL Normal Absolute Neut 4.2 LAB L100.2720 0.83-4.51 X10 3/ul Normal Absolute Lymph 0.99 Performed By: #### L100.0100 #### [facility] [address] [place], [address] COMPREHENSIVE METABOLIC Collected: 08/15/2018 Status: F Source: [place] 9:55 PM [facility] REPOSITORY TYPE CODE TESTS RESULT OUT OF RANGE REFERENCE UNITS LAB L501.0100 74-106 mg/dL High GLU 184 Result Comment: Fasting Glucose result greater than or equal to 126 mg/dL suggests DIABETES MELLITUS per A.D.A. criteria. Please note revised GLUCOSE reference range effective 2017. LAB L501.1000 7-18 mg/dL High BUN 24 LAB L501.1100 0.70-1.30 mg/dL High CREAT,SERUM 1.50 Result Comment: The validity of the calculated GFR AND GFRAA in patients over 70 years has not been determined. Clinical correlation is essential. LAB L501.1110 >60 mL/min Low EST GFR 48 Result Comment: Non- GFR Calc LAB L501.1115 >60 mL/min Low EST GFR - AA 58 Result Comment: GFR Calc LAB L501.1255 ml/min Normal Estimated CRCL 34.26 LAB L501.1300 10-20 RATIO Normal BUN/CRE 16.0 LAB L501.1500 6.4-8. g/dL Normal 2 T PROT 7.4 LAB L501.1800 3.2-5. g/dL Normal 0 ALB 3.5 LAB L501.1950 2.2-4. g/dL Normal 2 GLOB 3.9 LAB L501.2000 0.9-2. RATIO Normal 4 A/G 0.9 LAB L501.2200 8.5-10 mg/dL Low .1 CA 8.3 LAB L501.4100 15-37 U/L Low AST 14 LAB L501.4305 45-117 U/L Normal ALK P 82 LAB L501.4405 16-61 U/L Normal ALT 16 LAB L501.4600 0.20-1 mg/dL Normal .00 T BILI 0.50 LAB L501.5300 136-14 mmol/L Normal 5 NA 139 LAB L501.5600 3.5-5. mmol/L Normal 1 K 3.7 LAB L501.5900 98-107 mmol/L Normal CL 103 LAB L501.6100 21.0-3 mmol/L Normal 2.0 CO2 28.0 LAB L501.6200 5-15 Normal GAP 8 Performed By: #### L500.4050, L501.2450 #### [facility] [address] [place] [place], [address] LIPASE Collected: 08/15/2018 Status: F Source: [place] 9:55 PM [facility] REPOSITORY TYPE CODE TESTS RESULT OUT OF RANGE REFERENCE UNITS LAB L501.2450 73-393 U/L Normal LIPASE 132 Performed By: #### L500.4050, L501.2450 #### [facility] [address] [place], [address] ABDOMEN/PELVIS W IV CONT Observed: 08/15/2018 Status: F Source: [place] ONLY 9:43 PM [facility] REPOSITORY [facility] Imaging Services [address] [place] [address] Abdomen/Pelvis W IV Cont ONLY MR#: [id number] Acct: [id number] Name: TYRELL STANLEY Rep #: [id number] : 1935 82 From: Eduard Christian MD PCP: Pedro Marie MD Status: REG ER Study: Abdomen/Pelvis W IV Cont ONLY Date of Exam: 08/15/18 Exam# [id number] Ordering Dr: Ozzie Cho MD STUDY: CT ABDOMEN AND PELVIS WITH CONTRAST REASON FOR EXAM: Male, 82 years old. Right-sided abdominal pain. RADIATION DOSAGE (If Supplied By Facility): CTDIvol = ( 17.87 ) mGy, DLP = ( 1105.31 ) mGycm TECHNIQUE: Transaxial images were obtained from the dome of the diaphragm to the symphysis pubis without oral contrast. 100 ml of Isovue 300 contrast was administered. Sagittal and coronal images were reconstructed. Individualized dose optimization techniques were used for this CT. COMPARISON: None. FINDINGS: The visualized portions of the lung bases demonstrate right lower lobe infiltrate. There is small right pleural effusion. There is calcified granuloma in the right lower lobe. The visualized portions of the heart are within normal limits. Normal liver. There is non-visualization of the gallbladder, which may be secondary to either contraction or a prior cholecystectomy. There are multiple benign calcified granulomata of the spleen. Normal pancreas. Normal bilateral adrenal glands. There are few cysts in the right kidney, the largest is in the upper pole with mild peripheral calcifications measuring about 3.5 cm. There is no evidence of hydronephrosis. There is a small cyst in the left kidney. The stomach is somewhat distended. There is mild thickening of the gastric wall in the region of the gastric antrum. The small bowel loops are normal in caliber. There is fecal retention. There is diverticulosis of the colon but there is no evidence of acute diverticulitis. The appendix is visualized and appears normal. There is diffuse atherosclerotic calcification of the abdominal aorta, without a demonstrated aneurysm. Normal inferior vena cava. Normal retroperitoneum. There is thickening of the bladder wall probably due to underdistention. The prostate is enlarged. There are metallic densities in the prostate which could represent radiation seeds. There is a small right inguinal hernia containing fluid. There is small left inguinal hernia containing fat. There are diffuse degenerative changes of the visualized lumbar spine. CT/Abdomen/Pelvis W IV Cont ONLY IMPRESSION: 1. Mild right lower lobe infiltrate and small left pleural effusion. 2. Thickening of the gastric wall in the region of the gastric antrum. Gastritis is difficult to exclude. 3. Diverticulosis without evidence of acute diverticulitis. 4. No evidence of acute appendicitis. 5. Prominent prostate. Electronically Signed: Eduard Christian MD at 23:32 EDT Tel , Service support , CC: Ozzie Cho MD; Pedro Marie MD Office Aide: Signed THYROID STIM HORMONE Collected: 07/25/2018 Status: F Source: [place] (TSH) 12:09 PM [facility] REPOSITORY TYPE CODE TESTS RESULT OUT OF RANGE REFERENCE UNITS LAB L501.9520 0.358-3.74 uIU/mL Normal TSH 1.69 Performed By: #### L501.9520, L506.0400 #### [facility] [address] [place], [address] T4 FREE DIRECT Collected: 07/25/2018 Status: F Source: [place] 12:09 PM [facility] REPOSITORY TYPE CODE TESTS RESULT OUT OF RANGE REFERENCE UNITS LAB L506.0400 0.76-1.46 ng/dL Normal T4 FREE 1.23 DIRECT Performed By: #### L501.9520, L506.0400 #### [facility] [address] [place], [address] CARDIOLOGY VISIT Observed: 07/25/2018 Status: F Source: [place] REPORT 10:00 AM [facility] REPOSITORY [facility] [address] [place] [address] OFFICE VISIT Date of Service: 07/25/18 MR#: [id number] Acct: [id number] Name: TYRELL STANLEY Rep #: [id number] : 1935 Provider: Kylee Estrada Age/Sex: 82/M Location: [facility] [place] Status: Signed HPI HPI Details: TYRELL STANLEY, is a 82 M who presents to the office today for a cardiovascular follow-up. He has a history of hypertension, atrial fibrillation with 2 cardioversions in 2013 in 2014, syncopal episodes, diastolic heart failure, recurrent pleural effusions, dementia and diabetes. sts that grabs the left side of his chest. She sts that she asks him what the issues is and he sts that is is chest pain. But is only last less than one minute. She sts that he complains of lightheadedness/dizziness. notes that he has low Bp during those times. He has not had any syncopal events. He does not have any palpitations that he is aware of. He does not have any edema. With his dementia, it is difficult to get an exact history, much of which is given by . Intake Vital Signs07/25/18 Body Mass Index (BMI) 29.1 07/25/18 Blood Pressure 140/64 07/25/18 Height 5 ft 5 in 07/25/18 Weight: 174 lb 07/25/18 Body Mass Index (BMI) 28.9 07/25/18 Blood Pressure 132/60 07/25/18 Blood Pressure Location Lt brachial Intake Visit Reasons: 6 M FU Audit Lead Required: No Accompanied by: Is patient in pain?: No Allergies cimetidine HCl [From Tagamet] Allergy (Verified 07/25/18 09:41) Rash ciprofloxacin [From Cipro] Allergy (Verified 07/25/18 09:41) Rash amoxicillin trihydrate [From Augmentin] Adverse Reaction (Verified 07/25/18 09:41) Abd cramps/diarrhea cefdinir [From Omnicef] Adverse Reaction (Verified 07/25/18 09:41) Diarrhea indomethacin sodium [From Indocin] Adverse Reaction (Verified 07/25/18 09:41) Nausea memantine HCl [From Namenda] Adverse Reaction (Verified 07/25/18 09:41) dizziness potassium clavulanate [From Augmentin] Adverse Reaction (Verified 07/25/18 09:41) Abd cramps/diarrhea sitagliptin phosphate [From Januvia] Adverse Reaction (Verified 07/25/18 09:41) Nausea Medications Cholecalciferol (Vitamin D3) [Vitamin D3] 1,000 unit PO DAILY 12/25/13 [History Confirmed 07/25/18] Aspirin [Aspirin, Baby] 81 mg PO QHS 11/17/14 [History Confirmed 07/25/18] Cyanocobalamin [Vitamin B12] 1,000 mcg PO DAILY@0800 11/17/14 [History Confirmed 07/25/18] Pantoprazole Sodium [Protonix] 40 mg PO DAILY 11/17/14 [History Confirmed 07/25/18] Dicyclomine HCl [Bentyl] 10 mg PO DAILY 03/15/17 [History Confirmed 07/25/18] Loratadine 10 mg PO DAILY PRN 03/15/17 [History Confirmed 07/25/18] Metformin HCl 500 mg PO BID 03/15/17 [History Confirmed 07/25/18] Lisinopril [Zestril] 40 mg PO DAILY #30 tab 03/16/17 [Rx Confirmed 07/25/18] amiodarone 200 mg tablet 200 mg PO .COMPLEX tab 12/30/17 [History Confirmed 07/25/18] amlodipine 5 mg tablet 5 mg PO QDAY 12/30/17 [History Confirmed 07/25/18] magnesium oxide 400 mg tablet 400 mg PO BID 12/30/17 [History Confirmed 07/25/18] multivitamin tablet 1 tab PO QDAY 12/30/17 [History Confirmed 07/25/18] warfarin 2 mg tablet 2 mg PO .COMPLEX 12/30/17 [History Confirmed 07/25/18] warfarin 2 mg tablet 4 mg PO .COMPLEX 12/30/17 [History Confirmed 07/25/18] carvedilol 25 mg tablet 12.5 mg PO BID #180 tab 07/14/18 [Rx Confirmed 07/25/18] furosemide 40 mg tablet 20 mg PO DAILY tab 07/25/18 [History Confirmed 07/25/18] Ejection fraction %: 65 to 70 PFSH Medical History Nonrheumatic mitral (valve) insufficiency (Chronic) Non-rheumatic tricuspid valve insufficiency (Chronic) Non-rheumatic aortic stenosis (Chronic) Chronic diastolic (congestive) heart failure (Chronic) History of pleural effusion (Chronic) 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 (Chronic) correction current use of 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) Hypertension (Chronic) Chronic renal failure, stage 3 (moderate) (Chronic) History of anxiety disorder (Chronic) Generalized osteoarthritis (Chronic) History of gout (Chronic) Mild dementia (Chronic) Rheumatoid arthritis (Chronic) Diabetes mellitus, type II (Chronic) History of prostate cancer (Chronic) Anemia of chronic disease (Chronic) PAF (paroxysmal atrial fibrillation) (Chronic) Syncope and collapse (Chronic) Surgical History History of left heart catheterization (Chronic 01/2014) History of bilateral inguinal hernia repair (Resolved) History of cholecystectomy (Resolved 1989) History of left knee replacement (Resolved) History of right shoulder replacement (Resolved) History of tonsillectomy (Resolved) Family History Father , of [place] CAD (coronary artery disease) Myocardial infarction Brother Diabetes Social History Smoking Status: Never smoker alcohol intake: never caffeine: Yes Type: coffee Number of servings: 1 ROS Const Const: Negative for weakness, fatigue, fever(s) or headache(s) Eyes Eyes: Negative for blind spots, loss of peripheral vision or transient loss of vision ENT ENT: Positive for dizziness; negative for headache(s), tinnitus or Nosebleed/epistaxis Cardio Chest Pain: Yes Palpitations: No Edema: None Muscle aches with walking: None Resp Respiratory: Negative for SOB with activity, SOB at rest, SOB orthopnea\SOB lying down or Cough GI GI: Negative nausea, vomiting, heartburn or vomiting blood/hematemesis : Negative for hematuria Musc Musc: Negative for muscle aches/ myalgia Neuro Neuro: Positive for dizziness and lightheadedness; negative for weakness, headache(s), near syncope, syncope or orthostatic symptoms Rolly Hematologic/Lymphatic: Negative for easy bleeding Endo Endo: Negative for fatigue Cardiology Exam Const Appearance: cooperative, no acute distress and well developed Orientation: alert and awake Head Head: normocephalic and atraumatic Mouth: moist mucous membranes Eyes General: appearance normal, both eyes and all related structures Conjunctivae: conjunctivae normal Pupils: PERRL EOM: EOM intact bilaterally Neck Neck: normal visual inspection, no lymphadenopathy and no JVD Carotids: Negative bruit Neck Mass: Negative Neck mass Chest Chest inspection: normal inspection of the chest and symmetric chest movement Auscultation: Bilateral: Clear to Auscultation Cardio Palpation: normal PMI Rate: regular rate Rhythm: regular rhythm Heart sounds: S1 normal, S2 normal and murmur; negative rub or gallop Murmur: soft, Grade 2/6 and mid systolic GI GI: normal to inspection, soft, no hepatosplenomegaly and bowel sounds present; negative tender Neuro General: alert, awake, oriented x3, CN's II-XI intact bilaterally and moves all extremities Extremities Pulses: Normal: Right Posterior Tibial Pulse, Left Posterior Tibial Pulse, Right Radial Pulse, Left Radial Pulse Lower Extremity Edema: None: Bilateral (some edema to top of feet), Color Changes: Bilateral Psych Psychological: normal affect Supplemental Info Stress test in 2018: Impression: 1. Pharmacologic (Regadenoson) evaluation 2. Peak pharmacologic ECG with no obvious ECG changes 3. Nuclear images pending 4. Rest and stress SPECT Cardiolite nuclear imaging demonstrates the appearance of relative uniform tracer uptake and myocardial perfusion appearing within normal limits. 5. The gated Cardiolite study reports an LVEF of 60%. Assessment AND Plan 1. PAF (paroxysmal atrial fibrillation) I48.0 Plan Patient has not had any symptomatic recurrence. He has anticoagulated with a therapeutic INR goal 2-3. This is managed by his primary care doctor. He is on amiodarone low dose. Will obtain a thyroid panel and hepatic panel 2. Essential hypertension I10 Plan has noted several low blood pressure readings with patient. We will decrease his Lasix to 20 mg daily. As his low blood pressure readings are usually after he takes his Coreg and his Lasix. He takes his lisinopril at noon and his Norvasc in the evening. Patient Instructions Decrease your lasix to 20 mg daily, hopefully this will help with the dizziness. 3. 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 Plan Patient will continue with his low-dose diuretics. We will continue to monitor with echocardiograms as deemed appropriate. 4. Non-rheumatic aortic stenosis I35.0 Plan Recent echocardiogram has been reviewed. We will continue to monitor by history, exam and echocardiograms as deemed appropriate. Plan Detail Other Orders Orders: Other Medications Changed: Additional Comments Thank you for allowing us to participate in the patients plan of care, if you have any questions please do not hesitate to call. This note was generated using a voice recognition system and there may be incorrect words, spelling or punctuation that were not noted when reviewing the office note prior to saving. Follow Up 6 Months (DJN) Coding Level of Care Code Off vis,est,level 3 Diagnoses PAF (paroxysmal atrial fibrillation) I48.0 Essential hypertension I10 Hypertension type: essential hypertension 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 Non-rheumatic aortic stenosis I35.0 Coding Level of Care Code Off vis,est,level 3 Diagnoses PAF (paroxysmal atrial fibrillation) I48.0 Essential hypertension I10 Hypertension type: essential hypertension 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 Non-rheumatic aortic stenosis I35.0 07/25/18 1000 <Electronically signed by Kylee LI> Date Kylee LI Cosigner Signature: Date (if applicable) CC: Pedro Marie MD CBC W/DIFF, AUTOMATED Collected: 06/22/2018 Status: F Source: LIV 8:19 AM [facility] [place] REPOSITORY TYPE CODE TESTS RESULT OUT OF RANGE REFERENCE UNITS LAB L100.1000 4.4-11.0 K/mm3 Normal WBC 5.5 LAB L100.1200 4.6-6.2 M/mm3 Low RBC 4.19 LAB L100.1300 13.0-16.5 g/dl Low HGB 10.6 LAB L100.1400 40-54 % Low HCT 33.7 LAB L100.1500 80-94 fL Normal MCV 80.4 LAB L100.1600 27.0-32.0 pg Low MCH 25.3 LAB L100.1700 32-36 g/gl Low MCHC 31.5 LAB L100.1810 11.6-14.6 % High RDW CV 16.9 LAB L100.1820 35.1-43.9 fl High RDW SD 48.6 LAB L100.1900 150-450 K/mm3 Normal PLT 158 LAB L100.2000 6.2-12.0 fl Normal MPV 9.8 LAB L100.2100 47-70 % Normal NEUT% 68.7 LAB L100.2200 19-41 % Low LY% 16.8 LAB L100.2300 0-10 % High MONO% 10.1 LAB L100.2400 0-5 % Normal EO% 2.9 LAB L100.2500 0-1 % High BASO% 1.1 LAB L100.2550 0.0-0.9 % Normal IM GRAN % 0.400 Result Comment: IG% - Immature Granulocytes (promyelocytes, myelocytes and metamyelocytes) > 1% indicates that a LEFT SHIFT is Present. LAB L100.2620 2.0-7.7 X10 3/uL Normal Absolute Neut 3.8 LAB L100.2720 0.83-4.51 X10 3/ul Normal Absolute Lymph 0.93 Performed By: #### L100.0100, L500.2500, L501.9985 #### [facility] [address] [place], [address] BASIC METABOLIC Collected: 06/22/2018 Status: F Source: LIV PROFILE (BMP) 8:19 AM [facility] [place] REPOSITORY Order Comment: Order Date: 06/07/18 Order Info: 0667-1 - BMP TYPE CODE TESTS RESULT OUT OF RANGE REFERENCE UNITS LAB L501.0100 74-106 mg/dL High GLU 120 Result Comment: Fasting Glucose result from 100 to 125 mg/dL suggests IMPAIRED HOMEOSTASIS per A.D.A. criteria. Please note revised GLUCOSE reference range effective 2017. LAB L501.1000 7-18 mg/dL Normal BUN 18 LAB L501.1100 0.70-1.30 mg/dL High CREAT,SERUM 1.66 Result Comment: The validity of the calculated GFR AND GFRAA in patients over 70 years has not been determined. Clinical correlation is essential. LAB L501.1110 >60 mL/min Low EST GFR 42 Result Comment: Non- GFR Calc LAB L501.1115 >60 mL/min Low EST GFR - AA 51 Result Comment: GFR Calc LAB L501.1300 10-20 RATIO Normal BUN/CRE 10.8 LAB L501.2200 8.5-10.1 mg/dL CA Normal 8.6 LAB L501.5300 136-145 mmol/L NA Normal 143 LAB L501.5600 3.5-5.1 mmol/L K Normal 4.1 LAB L501.5900 98-107 mmol/L CL Normal 104 LAB L501.6100 21.0-32.0 mmol/L Normal CO2 32.0 LAB L501.6200 5-15 Normal GAP 7 Performed By: #### L100.0100, L500.2500, L501.9985 #### [facility] [address] [place], [place], [address] HEMOGLOBIN A1C Collected: 06/22/2018 Status: F Source: LIV 8:19 AM [facility] [place] REPOSITORY Order Comment: Order Date: 06/07/18 Order Info: 4548-4 - A1C TYPE CODE TESTS RESULT OUT OF RANGE REFERENCE UNITS LAB L501.9985 4.2-6.3 % High HGB A1C 7.5 Performed By: #### L100.0100, L500.2500, L501.9985 #### [facility] [address] [place], [place], [address] CARDIOLOGY VISIT Observed: 04/04/2018 Status: F Source: LIV REPORT 3:30 PM [facility] [place] REPOSITORY [facility] [address] [place] [address] OFFICE VISIT Date of Service: 04/04/18 MR#: [id number] Acct: [id number] Name: TYRELL STANLEY Rep #: [id number] : 1935 Provider: Ozzie Porter MD Age/Sex: 82/M Location: [facility] [place] Status: Signed HPI HPI Chief Complaint: Routine f/u Details: HPI Mr Elmore is a very pleasant 82-year-old mildly demented, diabetic gentleman with a history of hypertension, diastolic heart failure, status post left pleural effusion with thoracentesis approximately 2.5 years ago. At that time he apparently saw Dr. Robertson in consultation. At that time he .performed a left heart catheterization. Patient had relatively normal coronary arteries, and normal LV function. Patient returned recently to [facility] with shortness of breath. He was found to be in atrial fibrillation, and was found to have a significant right- sided pleural effusion. Patient underwent a right-sided thoracentesis and removed approximately 2 L of fluid. He then underwent left heart catheterization by nm on 01/29/14. At that time he was found to have relatively normal coronary arteries, and his LV function was approximate 45-50%. His RV pressure was 44, and his RV sat was 66%. We were unable to cannulate into the pulmonary tree due to his enlarged right side of his heart. Patient underwent subsequent DC cardioversion on 03/17/14. About 2 weeks prior to several visits ago,, he developed a syncopal episode while sitting in a chair at a [employer] event. According to the , the patient has been tired and weak during that morning time, sat down in a chair, and when she brought him his meal basically tilted his head forward and had a syncopal episode. He had no seizure activity. According to the he was unconscious for pr 5 minutes time. He spontaneously awoke, Moved all 4 extremities and wascompletely lucid. He was brought to [facility] ER where he was seen by hospitalist. An echocardiogram that day demonstrated preserved LV function with an EF of 60%. His Lasix was discontinued, however does not appear that it was discontinued upon discharge. patient had recurrent atrial fibrillation was treated with amiodarone. He recently underwent repeat cardioversion on 02/21/15 which was successful. The patient has significant memory issues and dementia, but unfortunately was unable to tolerate Namenda due to its interaction with Coreg. He walks fairly slowly. He has had no further pleural effusions to his knowledge. A chest x-ray done 12/02/15 demonstrated by basilar atelectasis and blunting of both costophrenic angles. Patient recently has had dyspnea on exertion and shortness of breath with walking. It is unclear whether he has any angina as it is difficult to get a history given his dementia. He had a stress test done in December which was a non-walking nuclear stress test, which was negative for inducible ischemia. PFTs in 2015 were normal. In our office today his blood pressure is 150/72, and pulse is 62 and regular. His physical exam is as below. His lipids as of 02/12/16 show An LDL of 112, and an HDL of 34. Intake Vital Signs04/04/18 Height 5 ft 5 in Intake Visit Reasons: CP Allergies cimetidine HCl [From Tagamet] Allergy (Verified 04/04/18 15:08) Rash ciprofloxacin [From Cipro] Allergy (Verified 04/04/18 15:08) Rash amoxicillin trihydrate [From Augmentin] Adverse Reaction (Verified 04/04/18 15:08) Abd cramps/diarrhea cefdinir [From Omnicef] Adverse Reaction (Verified 04/04/18 15:08) Diarrhea indomethacin sodium [From Indocin] Adverse Reaction (Verified 04/04/18 15:08) Nausea memantine HCl [From Namenda] Adverse Reaction (Verified 04/04/18 15:08) dizziness potassium clavulanate [From Augmentin] Adverse Reaction (Verified 04/04/18 15:08) Abd cramps/diarrhea sitagliptin phosphate [From Januvia] Adverse Reaction (Verified 04/04/18 15:08) Nausea Medications Cholecalciferol (Vitamin D3) [Vitamin D3] 1,000 unit PO DAILY 12/25/13 [History Confirmed 04/04/18] Aspirin [Aspirin, Baby] 81 mg PO QHS 11/17/14 [History Confirmed 04/04/18] Cyanocobalamin [Vitamin B12] 1,000 mcg PO DAILY@0800 11/17/14 [History Confirmed 04/04/18] Pantoprazole Sodium [Protonix] 40 mg PO DAILY 11/17/14 [History Confirmed 04/04/18] Dicyclomine HCl [Bentyl] 10 mg PO DAILY 03/15/17 [History Confirmed 04/04/18] Loratadine 10 mg PO DAILY PRN 03/15/17 [History Confirmed 04/04/18] Metformin HCl 500 mg PO BID 03/15/17 [History Confirmed 04/04/18] Lisinopril [Zestril] 40 mg PO DAILY #30 tab 03/16/17 [Rx Confirmed 04/04/18] Furosemide [Lasix] 40 mg PO DAILY 11/01/17 [History Confirmed 04/04/18] amiodarone 200 mg tablet 200 mg PO .COMPLEX tab 12/30/17 [History Confirmed 04/04/18] amlodipine 5 mg tablet 5 mg PO QDAY 12/30/17 [History Confirmed 04/04/18] carvedilol 12.5 mg tablet 12.5 mg PO BID 12/30/17 [History Confirmed 04/04/18] magnesium oxide 400 mg tablet 400 mg PO BID 12/30/17 [History Confirmed 04/04/18] multivitamin tablet 1 tab PO QDAY 12/30/17 [History Confirmed 04/04/18] warfarin 2 mg tablet 2 mg PO .COMPLEX 12/30/17 [History Confirmed 04/04/18] warfarin 2 mg tablet 4 mg PO .COMPLEX 12/30/17 [History Confirmed 04/04/18] [facility] Medical History Nonrheumatic mitral (valve) insufficiency (Chronic) Non-rheumatic tricuspid valve insufficiency (Chronic) Non-rheumatic aortic stenosis (Chronic) Chronic diastolic (congestive) heart failure (Chronic) History of pleural effusion (Chronic) 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 (Chronic) correction current use of 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) Hypertension (Chronic) Chronic renal failure, stage 3 (moderate) (Chronic) History of anxiety disorder (Chronic) Generalized osteoarthritis (Chronic) History of gout (Chronic) Mild dementia (Chronic) Rheumatoid arthritis (Chronic) Diabetes mellitus, type II (Chronic) History of prostate cancer (Chronic) Anemia of chronic disease (Chronic) PAF (paroxysmal atrial fibrillation) (Chronic) Syncope and collapse (Chronic) Surgical History History of left heart catheterization (Chronic 01/2014) Family History Father , of MA CAD (coronary artery disease) Myocardial infarction Brother Diabetes Social History Smoking Status: Never smoker ROS Const Const: Negative for fatigue, difficulty sleeping, excessive sweating, weakness, frequent falls or headache(s) Eyes Eyes: Negative for loss of peripheral vision, transient loss of vision, blurry vision or double vision ENT ENT: Negative for Nosebleed/epistaxis, balance problems, headache(s) or dizziness Cardio Chest Pain: Yes (Has had chest pain and left/right arm numbness, bloating, SOB) Frequency: daily Onset: at rest (Usually after a meal) Location: epigastric, mid sternal Duration: minutes Edema: None Muscle aches with walking: None Resp Respiratory: Negative for SOB with activity, SOB at rest, SOB orthopnea\SOB lying down or paroxysmal nocturnal dyspnea GI GI: Negative nausea or heartburn : Negative for hematuria Musc Musc: Negative for muscle aches/ myalgia, muscle weakness, joint pain or balance problems Skin Skin: Negative non-healing lesions, unusual bruising or rash Neuro Neuro: Positive for lightheadedness; negative for weakness, frequent falls, blurry vision, headache(s), dizziness, orthostatic symptoms or double vision Rolly Hematologic/Lymphatic: Negative for easy bruising Endo Endo: Negative for fatigue, excessive sweating or increased thirst/drinking Psych Psych: Negative for anxiety or depression Allergy Allergy/Immunology: Negative for hives, Negative for rash Cardiology Exam Const Appearance: cooperative, healthy appearing and no acute distress Nutritional Appearance: well nourished Orientation: alert, oriented x3 and oriented to person Head Head: normal to inspection, atraumatic and normocephalic Nose: external nose normal Face and Sinus: face symmetric Mouth: oral mucosae normal Eyes General: appearance normal, both eyes and all related structures Eyelids: eyelids normal Conjunctivae: conjunctivae normal Pupils: PERRL and normal by confrontation EOM: EOM intact bilaterally Neck Neck: normal visual inspection and full ROM Carotids: normal carotid upstroke Chest Chest inspection: normal inspection of the chest Auscultation: Bilateral: Clear to Auscultation Cardio Palpation: normal PMI Rate: regular rate Rhythm: regular rhythm Heart sounds: S1 normal and S2 normal GI GI: normal to inspection, no hepatosplenomegaly and bowel sounds present Neuro General: alert, oriented x3, awake, CN's II-XI intact bilaterally and moves all extremities Skin Skin: no rashes or lesions noted Extremities Pulses: Normal: Right Femoral Pulse, Left Femoral Pulse, Right Dorsalis Pedis Pulse, Left Dorsalis Pedis Pulse, Right Posterior Tibial Pulse, Left Posterior Tibial Pulse, Right Radial Pulse, Left Radial Pulse Lower Extremity Edema: None: Bilateral Psych Psychological: normal affect Assessment AND Plan 1. Non-rheumatic aortic stenosis I35.0 Plan 1. Nonrheumatic aortic stenosis: The patient has mild aortic stenosis by echocardiogram in November 2016 and nonobstructive disease by coronary catheterization in 2015. Do not believe his symptoms are cardiac related at this time. He also has normal pulmonary function test in 2013. It is possible the patient's blood pressure may spike during his ambulatory maneuvers. Recommend he continue baby aspirin, amlodipine, Coreg, Lasix and lisinopril. I am hesitant to increase his antihypertensive medications given his history of syncope. If the patient's condition deteriorates, and despite his recent negative stress test I would have a low threshold for a repeat left and right heart catheterization. 2. Paroxysmal atrial fibrillation: Currently normal sinus rhythm by physical exam. Continue amiodarone, Coreg and warfarin. He has had no further falls. 3. Hyperlipidemia: His LDL and HDL cholesterol are fairly well-controlled. Continue present management. 4. Return office in 4 months. This note was generated using a voice recognition system and there may be incorrect words, spelling or punctuation that were not noted when reviewing the office note prior to saving. 2. Hypertension I10 Plan Detail Follow Up +4M (German or NIKA) Coding Level of Care Code Off vis,est,level 3 Diagnoses Non-rheumatic aortic stenosis I35.0 Hypertension I10 Coding Level of Care Code Off vis,est,level 3 Diagnoses Non-rheumatic aortic stenosis I35.0 Hypertension I10 04/04/18 1530 <Electronically signed by Ozzie Porter MD> Date Ozzie Porter MD Cosigner Signature: Date (if applicable) CC: Pedro Marie MD ABDOMEN LIMITED Observed: 04/01/2018 Status: F Source: LIV 8:01 AM [facility] REPOSITORY [facility] Imaging Services [address] [place] [address] Abdomen Limited MR#: [id number] Acct: [id number] Name: TYRELL STANLEY Rep #: [id number] : 1935 M 82 From: Casey Ring DO PCP: Pedro Marie MD Status: REG CLI Study: Abdomen Limited Date of Exam: 04/01/18 Exam# [id number] Ordering Dr: Adelaide Carvajal MD STUDY: ABDOMINAL ULTRASOUND - RIGHT UPPER QUADRANT REASON FOR VISIT: Male, 82 years old. Epigastric pain, nausea TECHNIQUE: Ultrasound evaluation of the right upper quadrant was performed with real-time and static morris-scale imaging. TECHNICAL QUALITY: Limited. Examination limited by bowel gas. COMPARISON: Report from CT 08/06/2010 FINDINGS: Liver: The liver measures 16.6 cm. There is increased echogenicity consistent with fatty infiltration. The bile ducts are within normal limits. There is hepatic color flow. The direction of portal flow is hepatopetal. The liver has a slightly lobular contour. Gallbladder: The patient is status post cholecystectomy. Common Bile Duct (C.B.D.): The common bile duct measures 5.3 mm. Pancreas: The visualized portions of the pancreas are grossly unremarkable. There is normal echogenicity of the pancreas. There is no demonstrated pancreatic mass or cyst. Right Kidney: Normal size of the right kidney. The right kidney measures 10.5 x 4.8 x 5.3 cm. Normal renal cortex. The right cortex measures 1.1 cm. There are multiple renal cysts present on the right, the largest at the superior pole measuring 3.4 x 3.2 x 2.4 cm. Within the midpole, there is a 9 x 1.2 cm cyst, with a peripheral 7 mm calcification. US/Abdomen Limited IMPRESSION: Hepatic steatosis. The gallbladder has been removed. There are several right renal cysts, one of which appears to have a peripheral calcification. Studies limited due to bowel gas. Electronically Signed: Casey DO Jhonathan at 11:35 EDT Tel , Service support , CC: Adelaide Carvajal MD; Pedro Marie MD Office Aide: Signed CBC W/DIFF, AUTOMATED Collected: 03/30/2018 Status: F Source: LIV 12:10 PM [facility] [place] REPOSITORY Order Comment: Order Date: 03/30/18 Order Info: [id number] - CBCD TYPE CODE TESTS RESULT OUT OF RANGE REFERENCE UNITS LAB L100.1000 4.4-11.0 K/mm3 Normal WBC 5.5 LAB L100.1200 4.6-6.2 M/mm3 Low RBC 4.15 LAB L100.1300 13.0-16.5 g/dl Low HGB 10.7 LAB L100.1400 40-54 % Low HCT 34.3 LAB L100.1500 80-94 fL Normal MCV 82.7 LAB L100.1600 27.0-32.0 pg Low MCH 25.8 LAB L100.1700 32-36 g/gl Low MCHC 31.2 LAB L100.1810 11.6-14.6 % High RDW CV 16.7 LAB L100.1820 35.1-43.9 fl High RDW SD 50.1 LAB L100.1900 150-450 K/mm3 Normal PLT 165 LAB L100.2000 6.2-12.0 fl Normal MPV 10.2 LAB L100.2100 47-70 % Normal NEUT% 70.0 LAB L100.2200 19-41 % Low LY% 15.7 LAB L100.2300 0-10 % High MONO% 10.5 LAB L100.2400 0-5 % Normal EO% 2.0 LAB L100.2500 0-1 % High BASO% 1.4 LAB L100.2550 0.0-0.9 % Normal IM GRAN % 0.400 Result Comment: IG% - Immature Granulocytes (promyelocytes, myelocytes and metamyelocytes) > 1% indicates that a LEFT SHIFT is Present. LAB L100.2620 2.0-7.7 X10 3/uL Normal Absolute Neut 3.9 LAB L100.2720 0.83-4.51 X10 3/ul Normal Absolute Lymph 0.87 Performed By: #### L100.0100, L500.3400, L501.2400, L501.2450 #### [facility] [address] [place], [place], [id number] LIVER PROFILE Collected: 03/30/2018 Status: F Source: [place] 12:10 PM [facility] REPOSITORY Order Comment: Order Date: 03/30/18 Order Info: [id number] - LIVER Order Info: [id number] - [place] Order Info: 3040-3 - LIPASE TYPE CODE TESTS RESULT OUT OF RANGE REFERENCE UNITS LAB L501.1500 6.4-8.2 g/dL Normal T PROT 7.5 LAB L501.1800 3.2-5.0 g/dL Normal ALB 3.8 LAB L501.1950 2.2-4.2 g/dL Normal GLOB 3.7 LAB L501.4100 15-37 U/L Normal AST 16 LAB L501.4305 45-117 U/L Normal ALK P 80 LAB L501.4405 16-61 U/L Normal ALT 16 LAB L501.4600 0.20-1.00 mg/dL Normal T BILI 0.80 LAB L501.4700 0.00-0.30 mg/dL Normal D BILI 0.13 Performed By: #### L100.0100, L500.3400, L501.2400, L501.2450 #### [facility] [address] [place], [place], [id number] AMYLASE Collected: 03/30/2018 Status: F Source: [place] 12:10 PM [facility] REPOSITORY Order Comment: Order Date: 03/30/18 Order Info: [id number] - LIVER Order Info: [id number] - [place] Order Info: 3040-3 - LIPASE TYPE CODE TESTS RESULT OUT OF RANGE REFERENCE UNITS LAB L501.2400 25-115 U/L Normal A[place]IDE 61 Performed By: #### L100.0100, L500.3400, L501.2400, L501.2450 #### [facility] [address] [place], [address] LIPASE Collected: 03/30/2018 Status: F Source: LIV 12:10 PM [facility] [place] REPOSITORY Order Comment: Order Date: 03/30/18 Order Info: [id number] - LIVER Order Info: 1798-8 - [place] Order Info: 3040-3 - LIPASE TYPE CODE TESTS RESULT OUT OF RANGE REFERENCE UNITS LAB L501.2450 73-393 U/L Normal LIPASE 213 Performed By: #### L100.0100, L500.3400, L501.2400, L501.2450 #### [facility] [address] [place], [address] CARDIOLOGY VISIT Observed: 01/04/2018 Status: F Source: LIV REPORT 10:44 AM [facility] REPOSITORY [facility] [address] [place] [address] OFFICE VISIT Date of Service: 12/30/17 MR#: [id number] Acct: [id number] Name: TYRELL STANLEY Rep #: [id number] : 1935 Provider: Ozzie Porter MD Age/Sex: 82/M Location: [facility] [place] Status: Signed HPI 6 M FU: Chief Complaint: Routine f/u Details: HPI HPI Mr Elmore Is a very pleasant 82-year-old mildly demented, diabetic gentleman with a history of hypertension, diastolic heart failure, status post left pleural effusion with thoracentesis approximately 2.5 years ago. At that time he apparently saw Dr. Robertson in consultation. At that time he performed a left heart catheterization. Patient had relatively normal coronary arteries, and normal LV function. Patient returned recently to [facility] with shortness of breath. He was found to be in atrial fibrillation, and was found to have a significant right- sided pleural effusion. Patient underwent a right-sided thoracentesis and removed approximately 2 L of fluid. He then underwent left heart catheterization by me on 01/29/14. At that time he was found to have relatively normal coronary arteries, and His LV function was approximate 45-50%. His RV pressure was 44, and his RV sat was 66%. We were unable to cannulate into the pulmonary tree due to his enlarged right side of his heart. Patient underwent subsequent DC cardioversion on 03/17/14. Several visits ago, he developed a syncopal episode while sitting in a chair at a [employer] event. According to the , the patient has been tired and weak during that morning time, sat down in a chair, and when she brought him his meal basically tilted his head forward and had a syncopal episode. He had no seizure activity. According to the he was unconscious for about 5 minutes time. He spontaneously awoke, Moved all 4 extremities and was completely lucid. He was brought to [facility] ER where he was seen by hospitalist. An echocardiogram that day demonstrated preserved LV function with an EF of 60%. His Lasix was discontinued, however does not appear that it was discontinued upon discharge. patient had recurrent atrial fibrillation was treated with amiodarone. He recently underwent repeat cardioversion on 02/21/15 which was successful. Since our last visit, the patient has had a deterioration in his pulmonary status. According to his , he has had significant dyspnea on exertion and shortness of breath to the point where it appears to occur at rest. He denies any exertional chest pain but occasionally gets fleeting chest pain episodes. Patient has had markedly abnormal hypertension and is currently having his antihypertensive medications adjusted by his PCP. for the most part his blood pressures of run in the 1 teens up to the 160s. The patient has significant memory issues and dementia, but unfortunately was unable to tolerate Namenda due to its interaction with Coreg. He walks fairly slowly. He has had no further pleural effusions to his knowledge. A chest x-ray done 12/02/15 demonstrated by basilar atelectasisand blunting of both costophrenic angles. Since her last visit, the patient is doing fairly well, and denies any shortness of breath or syncopal episodes. does state that he occasionally gets episodes of spontaneous chest pain, both with and without exertion, lasting anywhere between a few seconds to a few minutes, and when they last more than 5 minutes she gives him a nitroglycerin which relieves the pain. He is taking and tolerating his medicines well. Recently his blood pressure was found to be elevated and Dr. Marie increased his amlodipine to 5 mg daily. In our office today his blood pressure is 140/64, and pulse is 60 and regular. His physical exam is as below. His lipids as of 02/12/16 show An LDL of 112, and an HDL of 34. His lipids as of 03/16/17 show HDL 34 and LDL of 99. EKG on 11/01/17 showed normal sinus rhythm with a QT corrected of approximately 470 ms. Repeat EKG today shows Intake Vital Signs12/30/17 Height 5 ft 5 in Intake Visit Reasons: 6 M FU Allergies cimetidine HCl [From Tagamet] Allergy (Verified 12/30/17 13:04) Rash ciprofloxacin [From Cipro] Allergy (Verified 12/30/17 13:04) Rash amoxicillin trihydrate [From Augmentin] Adverse Reaction (Verified 12/30/17 13:04) Abd cramps/diarrhea cefdinir [From Omnicef] Adverse Reaction (Verified 12/30/17 13:04) Diarrhea indomethacin sodium [From Indocin] Adverse Reaction (Verified 12/30/17 13:04) Nausea memantine HCl [From Namenda] Adverse Reaction (Verified 12/30/17 13:04) dizziness potassium clavulanate [From Augmentin] Adverse Reaction (Verified 12/30/17 13:04) Abd cramps/diarrhea sitagliptin phosphate [From Januvia] Adverse Reaction (Verified 12/30/17 13:04) Nausea Medications Cholecalciferol (Vitamin D3) [Vitamin D3] 1,000 unit PO DAILY 12/25/13 [History Confirmed 12/30/17] Aspirin [Aspirin, Baby] 81 mg PO QHS 11/17/14 [History Confirmed 12/30/17] Cyanocobalamin [Vitamin B12] 1,000 mcg PO DAILY@0800 11/17/14 [History Confirmed 12/30/17] Pantoprazole Sodium [Protonix] 40 mg PO DAILY 11/17/14 [History Confirmed 12/30/17] Dicyclomine HCl [Bentyl] 10 mg PO DAILY 03/15/17 [History Confirmed 12/30/17] Loratadine 10 mg PO DAILY PRN 03/15/17 [History Confirmed 12/30/17] Metformin HCl 500 mg PO BID 03/15/17 [History Confirmed 12/30/17] Lisinopril [Zestril] 40 mg PO DAILY #30 tab 03/16/17 [Rx Confirmed 12/30/17] Furosemide [Lasix] 40 mg PO DAILY 11/01/17 [History Confirmed 12/30/17] amiodarone 200 mg tablet 200 mg PO .COMPLEX tab 12/30/17 [History Confirmed 12/30/17] amlodipine 5 mg tablet 5 mg PO QDAY 12/30/17 [History Confirmed 12/30/17] carvedilol 12.5 mg tablet 12.5 mg PO BID 12/30/17 [History Confirmed 12/30/17] magnesium oxide 400 mg tablet 400 mg PO BID 12/30/17 [History Confirmed 12/30/17] multivitamin tablet 1 tab PO QDAY 12/30/17 [History Confirmed 12/30/17] warfarin 2 mg tablet 2 mg PO .COMPLEX 12/30/17 [History Confirmed 12/30/17] warfarin 2 mg tablet 4 mg PO .COMPLEX 12/30/17 [History Confirmed 12/30/17] PFSH Medical History Chronic diastolic (congestive) heart failure (Chronic) History of pleural effusion (Chronic) 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) Hypertension (Chronic) Chronic renal failure, stage 3 (moderate) (Chronic) Diabetes mellitus, type II (Chronic) Anemia of chronic disease (Chronic) PAF (paroxysmal atrial fibrillation) (Chronic) Syncope and collapse (Chronic) Surgical History History of left heart catheterization (Chronic) Family History Father , of [place] CAD (coronary artery disease) Myocardial infarction Brother Diabetes Social History Smoking Status: Never smoker ROS Const Const: Negative for difficulty sleeping, fatigue, excessive sweating, weakness, frequent falls or headache(s) Eyes Eyes: Negative for loss of peripheral vision, transient loss of vision, blurry vision or double vision ENT ENT: Negative for Nosebleed/epistaxis, Negative for balance problems, Negative for headache(s), Negative for dizziness Cardio Chest Pain: Yes Frequency: weekly Character: sharp Onset: exercise Location: left chest Duration: minutes, brief Relieving: rest Edema: None Muscle aches with walking: None Resp Respiratory: Negative for SOB with activity, SOB at rest, SOB orthopnea\SOB lying down or paroxysmal nocturnal dyspnea GI GI: Negative nausea or heartburn : Negative for hematuria Musc Musc: Negative for muscle aches/ myalgia, muscle weakness, joint pain or balance problems Skin Skin: Negative non-healing lesions, unusual bruising or rash Neuro Neuro: Negative for weakness, Negative for frequent falls, Negative for blurry vision, Negative for headache(s), Negative for dizziness, Positive for lightheadedness (Occasional lightheadedness when standing for a long time), Negative for orthostatic symptoms, Negative for double vision Rolly Hematologic/Lymphatic: Negative for easy bruising Endo Endo: Negative for fatigue, excessive sweating or increased thirst/drinking Psych Psych: Negative for anxiety or depression Allergy Allergy/Immunology: Negative for hives, Negative for rash Cardiology Exam Const Appearance: cooperative, healthy appearing and no acute distress Nutritional Appearance: well nourished Orientation: alert, oriented x3 and oriented to person Head Head: normal to inspection, atraumatic and normocephalic Nose: external nose normal Face and Sinus: face symmetric Mouth: oral mucosae normal Eyes General: appearance normal, both eyes and all related structures Eyelids: eyelids normal Conjunctivae: conjunctivae normal Pupils: PERRL and normal by confrontation EOM: EOM intact bilaterally Neck Neck: normal visual inspection and full ROM Carotids: normal carotid upstroke Chest Chest inspection: normal inspection of the chest Auscultation: Bilateral: Clear to Auscultation Cardio Palpation: normal PMI Rate: regular rate Rhythm: regular rhythm Heart sounds: S1 normal and S2 normal GI GI: normal to inspection, no hepatosplenomegaly and bowel sounds present Neuro General: alert, oriented x3, awake, CN's II-XI intact bilaterally and moves all extremities Skin Skin: no rashes or lesions noted Extremities Pulses: Normal: Right Femoral Pulse, Left Femoral Pulse, Right Dorsalis Pedis Pulse, Left Dorsalis Pedis Pulse, Right Posterior Tibial Pulse, Left Posterior Tibial Pulse, Right Radial Pulse, Left Radial Pulse Lower Extremity Edema: None: Bilateral Psych Psychological: normal affect Assessment AND Plan Plan 1. Chest pain: The patient had episodes of both typical and atypical chest pain, occasionally with exertion, and improved with sublingual nitroglycerin. Although the patient had relatively normal coronary arteries by catheterization 4 years ago, I am somewhat concerned about the patient's exertional chest pain relieved with nitroglycerin. It is possible the patient is chest pain may be hypertension related given his spikes in his blood pressure on his ledger. His blood pressure is adequately controlled today. We will repeat his EKG today, and make arrangements for a non-walking nuclear stress test. I had like to avoid dobutamine echocardiogram given his history of atrial fibrillation. 2. Hypertension: The patient's blood pressure is fairly well controlled according to his ledger. Recently his amlodipine was increased. Recommend continuing amlodipine, Coreg, lisinopril. 3. Atrial fibrillation: Patient appears to be in normal sinus rhythm by physical exam today and confirmed by EKG in October 2017. QT corrected at that time was 470 ms, and we will repeat his EKG today. Continue amiodarone. 4. Return office in 6 months. This note was generated using a voice recognition system and there may be incorrect words, spelling or punctuation that were not noted when reviewing the office note prior to saving. Medications Discontinued: Plan Detail Follow Up 6 Months (German) Coding Level of Care Code Off vis,est,level 3 Coding Level of Care Code Off vis,est,level 3 01/04/18 1044 <Electronically signed by Ozzie Porter MD> Date Ozzie Porter MD Cosigner Signature: Date (if applicable) CC: BASIC METABOLIC Collected: 01/04/2018 Status: F Source: LIV PROFILE (BMP) 7:50 AM [facility] REPOSITORY Order Comment: Order Date: 09/09/17 Order Info: 0667-1 - BMP TYPE CODE TESTS RESULT OUT OF RANGE REFERENCE UNITS LAB L501.0100 74-106 mg/dL High GLU 140 Result Comment: Fasting Glucose result greater than or equal to 126 mg/dL suggests DIABETES MELLITUS per A.D.A. criteria. LAB L501.1000 7-18 mg/dL High BUN 21 LAB L501.1100 0.70-1.30 mg/dL High CREAT,SERUM 1.45 Result Comment: The validity of the calculated GFR AND GFRAA in patients over 70 years has not been determined. Clinical correlation is essential. LAB L501.1110 >60 mL/min Low EST GFR 50 Result Comment: Non- GFR Calc LAB L501.1115 >60 mL/min Normal EST GFR - AA 60 Result Comment: GFR Calc LAB L501.1300 10-20 RATIO Normal BUN/CRE 14.5 LAB L501.2200 8.5-10.1 mg/dL CA Normal 8.5 LAB L501.5300 136-145 mmol/L NA Normal 144 LAB L501.5600 3.5-5.1 mmol/L K Normal 3.8 LAB L501.5900 98-107 mmol/L CL Normal 105 LAB L501.6100 21.0-32.0 mmol/L Normal CO2 31.0 LAB L501.6200 5-15 Normal GAP 8 Performed By: #### L100.0100, L501.9985, L500.2500 #### [facility] [address] [place], [place], [id number] LIVER PROFILE Collected: 01/04/2018 Status: F Source: [place] 7:50 AM [facility] REPOSITORY Order Comment: Order Date: 09/09/17 Order Info: 0667-1 - [facility] TYPE CODE TESTS RESULT OUT OF RANGE REFERENCE UNITS LAB L501.1500 6.4-8.2 g/dL Normal T PROT 7.3 LAB L501.1800 3.2-5.0 g/dL Normal ALB 3.4 LAB L501.1950 2.2-4.2 g/dL Normal GLOB 3.9 LAB L501.4100 15-37 U/L Low AST 10 LAB L501.4305 45-117 U/L Normal ALK P 88 LAB L501.4405 16-61 U/L Normal ALT 16 Result Comment: Please note revised ALT reference range effective 2017. LAB L501.4600 0.20-1.00 mg/dL Normal T BILI 0.50 LAB L501.4700 0.00-0.30 mg/dL Normal D BILI 0.11 Performed By: #### L500.3400, L500.4100 #### [facility] [address] [place], [address] LIPID PROFILE Collected: 01/04/2018 Status: F Source: [place] 7:50 AM [facility] REPOSITORY Order Comment: Order Date: 09/09/17 Order Info: 0667-1 - BMP TYPE CODE TESTS RESULT OUT OF RANGE REFERENCE UNITS LAB L501.4900 200 mg/dL Normal CHOL 177 Result Comment: <200 mg/dL Desirable 200-240 mg/dL Borderline >240 mg/dL High Risk LAB L501.5000 mg/dL Normal TRIG 180 Result Comment: The drugs N-Acetylcysteine and Metamizole may falsely depress this assay. Serum Triglycerides Reference Interval Normal <150 mg/dL Borderline high 150 - 199 mg/dL High 200 - 499 mg/dL Very High > or = 500 mg/dL LAB L501.6400 mg/dL Low HDL 35 Result Comment: The drugs N-Acetylcysteine and Metamizole may falsely depress this assay. Reference Range HDL <40 mg/dL Low HDL Cholesterol HDL >or= 60 mg/dL High HDL Cholesterol LAB L501.6500 0-130 mg/dL Normal LDL 106 LAB L501.6600 5-40 mg/dL Normal VLDL 36 Performed By: #### L500.3400, L500.4100 #### [facility] [address] [place], [address] CBC W/DIFF, AUTOMATED Collected: 01/04/2018 Status: F Source: [place] 7:49 AM [facility] REPOSITORY Order Comment: Order Date: 09/09/17 Order Info: 0184-1 - CBCD TYPE CODE TESTS RESULT OUT OF RANGE REFERENCE UNITS LAB L100.1000 4.4-11.0 K/mm3 Normal WBC 5.4 LAB L100.1200 4.6-6.2 M/mm3 Low RBC 4.15 LAB L100.1300 13.0-16.5 g/dl Low HGB 10.5 LAB L100.1400 40-54 % Low HCT 34.6 LAB L100.1500 80-94 fL Normal MCV 83.4 LAB L100.1600 27.0-32.0 pg Low MCH 25.3 LAB L100.1700 32-36 g/gl Low MCHC 30.3 LAB L100.1810 11.6-14.6 % High RDW CV 15.6 LAB L100.1820 35.1-43.9 fl High RDW SD 47.8 LAB L100.1900 150-450 K/mm3 Low PLT 142 LAB L100.2000 6.2-12.0 fl Normal MPV 9.6 LAB L100.2100 47-70 % Normal NEUT% 69.2 LAB L100.2200 19-41 % Low LY% 16.7 LAB L100.2300 0-10 % High MONO% 10.2 LAB L100.2400 0-5 % Normal EO% 2.6 LAB L100.2500 0-1 % Normal BASO% 0.9 LAB L100.2550 0.0-0.9 % Normal IM GRAN % 0.400 Result Comment: IG% - Immature Granulocytes (promyelocytes, myelocytes and metamyelocytes) > 1% indicates that a LEFT SHIFT is Present. LAB L100.2620 2.0-7.7 X10 3/uL Normal Absolute Neut 3.7 LAB L100.2720 0.83-4.51 X10 3/ul Normal Absolute Lymph 0.90 Performed By: #### L100.0100, L501.9985, L500.2500 #### [facility] [address] [place], [address] HEMOGLOBIN A1C Collected: 01/04/2018 Status: F Source: [place] 7:49 AM [facility] REPOSITORY Order Comment: Order Date: 09/09/17 Order Info: 4548-4 - A1C TYPE CODE TESTS RESULT OUT OF RANGE REFERENCE UNITS LAB L501.9985 4.2-6.3 % High HGB A1C 6.8 Performed By: #### L100.0100, L501.9985, L500.2500 #### [facility] [address] [facility] [place], [address] 12 LEAD EKG PERFORMED Observed: 12/30/2017 Status: F Source: [place] BY [facility] 1:28 PM [facility] REPOSITORY [facility] [address] [place] [address] 12 Lead EKG performed by [facility] 12/30/17 1322 MR#: [id number] Acct: [id number] Name: TYRELL STANLEY Rep #: [id number] : 1935 82 From: Ozzie Porter MD Attending Dr: Ozzie Porter MD Status: DEP AMB Ordering Dr: Ozzie Porter MD Date: 12/30/17 [facility] Sex: M C Admitted: BMS/12 Lead EKG performed by [facility] ECG Report Interpretation Sinus Bradycardia WITHIN NORMAL LIMITSElectronically signed on 01/17/2018 at 13:54 by Ozzie Porter 01/17/18 1358 Date Ozzie Porter MD CC: Pedro Marie MD Date Dictated: 12/30/171321 Date Transcribed: 12/30/171321 Office Aide: Signed ALLERGIES ALLERGIES DATE TYPE / CODE NAME / CODE REACTION SEVERITY SOURCE 12/20/2018 Drug indomethacin Nausea Unknown [place] Allergy/416 sodium/[id number]( [facility] [address]407[address] ED [facility]) Repository 12/20/2018 Drug amoxicillin Abd Unknown Liv Allergy/416 trihydrate/[id number] cramps/diarrhea Community 341919([facility]) Repository 12/20/2018 Drug potassium Abd Unknown Liv Allergy/416 clavulanate/B70616 cramps/diarrhea Community 029692([facility]) Repository 12/20/2018 Drug cimetidine Rash Unknown [place] Allergy/416 HCl/[id number](N [facility] 899225[facility] ED [facility]) Repository 12/20/2018 Drug memantine dizziness Unknown [place] Allergy/416 HCl/[id number]([facility] [address]23497[facility] ED [facility]) Repository 12/20/2018 Drug sitagliptin Nausea Unknown [place] Allergy/416 phosphate/[id number] Community 224713([facility] [address] ED [facility]) Repository 12/20/2018 Drug ciprofloxacin/F006 Rash Unknown [place] Allergy/416 253305(RXNORM) Community 893205([facility] ED CT) Repository 12/20/2018 Drug cefdinir/[id number] Diarrhea Unknown Liv Allergy/416 8(RXNORM) Community 757899([facility]) Repository ENCOUNTERS ENCOUNTERS ADMIT/DISCHARGE ACCOUNT ADMITTING ENCOUNTER LOCATION SOURCE NUMBER CLASS 12/20/2018/ [id number] Shannon Hollanda Inpatient Liv [place] 9 1 [place] Encounter [facility] ing:Cindyom: Repository [id number]: 1 12/20/2018 [id number] Koram, Katlyn Ambulatory BMSBuilding:B Liv 4 [place] Repository 12/20/2018 [id number] Koram, Katlyn Ambulatory BMSBuilding:B Liv 7 [place] MS..[facility] Repository 12/20/2018 [id number] Koram, [place] Ambulatory BMSBuilding:B [place] 5 [place] MS.[facility] Repository 12/20/2018 [id number] Koram, [place] Ambulatory BMSBuilding:B [place] 8 [place].[facility] access hospital Repository 12/20/2018 [id number] Koram, [place] Ambulatory BMSBuilding:B [place] 6 [place] MS.[facility] Repository 12/20/2018 [id number] Koram, [place] Ambulatory BMSBuilding:B [place] 5 [place] [facility] Repository 12/20/2018 [id number] Koram, Kat[place] Ambulatory BMSBuilding:B [place] 8 [place].[facility] Repository 12/20/2018 [id number] Koram, [place] Ambulatory BMSBuilding:B Liv 3 [place].[facility] Repository 12/12/2018/ [id number] Ambulatory Liv Liv 9 9 [facility] Hospital ing:PT Repository 12/09/2018 [id number] Ambulatory [place] Liv 1 [facility] Hospital ing:LAB Repository 10/10/2018 [id number] Ambulatory [place] 1 [facility] Hospital ing:MTRAD Repository 09/12/2018 [id number] Ambulatory [place] Liv 3 [facility] Hospital ing:MTRAD Repository 09/09/2018 [id number] Ambulatory [place] Liv 2 [facility] ing:LAB Repository 08/24/2018 [id number] Ambulatory [place] Liv 4 [facility] Hospital ing:MTLAB Repository 08/16/2018/ [id number] Bhargav Mcleod Ambulatory Liv [place] 8 0 [facility] Hospital ing:BX1Srdd: Repository XF262Lqi: 1 08/16/2018 [id number] Shani Bhargav Ambulatory BMSBuilding:B Liv 5 [facility] Hospital Repository 08/16/2018 [id number] Bhargav Mcleod Ambulatory BMSBuilding:B Liv 4 [facility] Hospital Repository 07/25/2018 [id number] Ambulatory Liv Liv 4 [facility] Hospital ing:POLAB3 Repository 07/25/2018/ [id number] Ambulatory BMSBuilding:B [place] 8 3 [facility] Repository 06/22/2018 [id number] Ambulatory [place] Liv 7 [facility] Hospital ing:MTLAB Repository 04/04/2018/ [id number] Ambulatory BMSBuilding:B Liv 8 1 [facility] Hospital Repository 04/01/2018 [id number] Ambulatory [place] 3 [facility]US Repository 03/30/2018 [id number] Ambulatory Liv [place] 8 [facility] ing:MFPLAB Repository 01/06/2018 [id number] Ambulatory Liv [place] 5 [facility] ing[facility]CVS Repository 01/06/2018 [id number] Ambulatory BMSBuilding:W Liv 4 [facility] Hospital Repository 01/04/2018 [id number] Ambulatory Liv [place] 0 [facility] ing:MTLAB Repository 12/30/2017/ [id number] Ambulatory BMSBuilding:B [place] 8 3 [facility] Repository 12/30/2017 [id number] Ambulatory BMSBuilding:B [place] 1 [facility] Repository 12/30/2017 [id number] Ambulatory BMSBuilding:B Liv 0 [facility] Repository PAYERS PAYERS ENCOUNTER GUARANTOR PAYER SUBSCRIBER SOURCE 12/20/2018 TYRELL Eaton Primary TYRELL Peck [id number] Insurance:[facility] GEITGEYDOB: [id number] Repository [address]Avm: 330 [id number] [phone] (HP) Date:8013-06-49ID [address] [facility] [address]ER: 12/20/2018 Secondary NOT GIVENUNK [place] Insurance:SELF PAY [facility] Number: Effective Repository Date:2018-12-20 12/20/2018 TYRELL Eaton Primary TYRELL Eaton [place] [id number] Insurance:[employer] GEITGEYDOB: Community [place] MED[place]ARE[place] [id number] [place] Number: Repository [address]Azs: (330) [id number] [phone] (HP) Date:6859-67-20FH [address] [place] [address] 10246UB: 12/20/2018 Secondary NOT GIVENUNK [place] Insurance:SELF PAY [facility] Number: Effective Repository Date:2018-12-20 12/20/2018 TYRELL Eaton Primary TYRELL Eaton Liv [id number] Insurance:[employer] GEITGEYDOB: Community [id number] Number: Repository [id number]: (330 [id number] [phone] (HP) Date:5967-61-91TI [address] [place] [address] 11883RW: 12/20/2018 Secondary NOT GIVENUNK [place] Insurance:SELF PAY [facility] Number: Effective Repository Date:2018-12-20 12/20/2018 TYRELL Eaton Primary TYRELL Eaton [place] [id number] Insurance:[employer] GEITGEYDOB: Community [place] [id number] Number: Repository [address]Xib: 330 [id number] [phone] (HP) Date:8926-69-42AV [address] [place] [address] 41522EM: 12/20/2018 Secondary NOT GIVENUNK Liv Insurance:SELF PAY [facility] Number: Effective Repository Date:2018-12-20 12/20/2018 TYRELL Eaton Primary TYRELL Eaton Liv [id number] Insurance:[employer] C[employer] GEITGEYDOB: Community [place] [id number] Number: Repository [address]Yni: 330 [id number] [phone] (HP) Date:4848-94-44GC [address] [place] [address] 24958JB: 12/20/2018 Secondary NOT GIVENUNK [place] Insurance:SELF PAY [facility] Number: Effective Repository Date:2018-12-20 12/20/2018 TYRELL Eaton Primary TYRELL Eaton [place] [id number] Insurance:[employer] C[employer] GEITGEYDOB: Community [place] [id number] [place] Number: Repository [address]Ziv: 330 [id number] [phone] (HP) Date:5866-80-10TK [address] [place] [address] 91629AQ: 12/20/2018 Secondary NOT GIVENUNK Liv Insurance:SELF PAY [facility] Number: Effective Repository Date:2018-12-20 12/20/2018 TYRELL Eaton Primary TYRELL Eaton [place] [id number] Insurance:[employer] GEITGEYDOB: Community [place] [id number] [place] Number: Repository [address]Xss: 330 [id number] [phone] (HP) Date:6410-48-24ZO [address] [place] [address] 58356BC: 12/20/2018 Secondary NOT GIVENUNK Liv Insurance:SELF PAY [facility] Number: Effective Repository Date:2018-12-20 12/20/2018 TYRELL Eaton Primary TYRELL Eaton Liv [id number] Insurance:[employer] GEITGEYDOB: Community [place] [id number] [place] Number: Repository [address]Pfv: (330 [id number] [phone] (HP) Date:9984-07-82MQ [address] [place] [address] 82650LF: 12/20/2018 Secondary NOT GIVENUNK Liv Insurance:SELF PAY [facility] Number: Effective Repository Date:2018-12-20 12/20/2018 TYRELL Eaton Primary TYRELL Eaton Liv [id number] Insurance:[employer] GEITGEYDOB: Community [id number] Repository [address]Bez: 330 [id number] [phone]) Date:8848-01-95UH [address] [place] [address] 12353JI: 12/20/2018 Secondary NOT GIVENUNK [place] Insurance:SELF PAY [facility] Number: Effective Repository Date:2018-12-20 12/12/2018 TYRELL Eaton Primary TYRELL Eaton Liv [id number] Insurance:[employer] GEITGEYDOB: [place] [id number] Number[place] Repository [id number]: (330) [id number] [phone]) Date:8133-91-36AC [address] [place] [address] 95352ER: 12/12/2018 Secondary NOT GIVENUNK Liv Insurance:SELF PAY [facility] Number: Effective Repository Date:2018-11-10 12/09/2018 TYRELL Eaton Primary TYRELL Eaton [place] [id number] Insurance:[employer] GEITGEYDOB: Community [place] [id number] [address]Vrk: (330) [id number] [phone]) Date:5762-49-13ZA [address] [place] [address] 44590MP: 12/09/2018 Secondary NOT GIVENUNK [place] Insurance:SELF PAY [facility] Number: Effective Repository Date:2018-12-09 10/10/2018 TYRELL Eaton Primary TYRELL Eaton [place] [id number] Insurance:[employer] GEITGEYDOB: Community [place] [id number] Number[place] Repository [address]Mwl: 330 [id number] [phone]) Date:6634-00-77GW [address] [address]GI: 10/10/2018 Secondary NOT GIVENUNK Liv Insurance:SELF PAY [facility] Number: Effective Repository Date:2018-10-10 09/12/2018 TYRELL Eaton Primary TYRELL Eaton Liv [id number] Insurance:[employer]ARE GEITGEYDOB: Community [place] [id number] Number: Repository [address]Gjg: 330 [id number] [phone]) Date:3134-88-38XD [address] [place] [address] 66652YA: 09/12/2018 Secondary NOT GIVENUNK Liv Insurance:SELF PAY [facility] Number: Effective Repository Date:2018-09-12 09/09/2018 TYRELL Eaton Primary TYRELL Eaton [place] [id number] Insurance:[employer] GEITGEYDOB: [place] [id number] [place] Number: Repository [address]Slm: 330 [id number] [phone] (HP) Date:6634-98-89JE [address] [address]TR: 09/09/2018 Secondary NOT GIVENUNK [place] Insurance:SELF PAY [facility] Number: Effective Repository Date:2018-09-09 08/24/2018 TYRELL Eaton Primary TYRELL Eaton [place] [id number] Insurance:[employer] GEITGEYDOB: Community [place] [id number] [place] Number: Repository [address]Vcy: 330 [id number] [phone]) Date:3554-15-54WL [address] [place] [address] 66948GP: 08/24/2018 Secondary NOT GIVENUNK [place] Insurance:SELF PAY [facility] Number: Effective Repository Date:2018-08-24 08/16/2018 TYRELL Eaton Primary TYRELL Eaton [place] [id number] Insurance:[employer] GEITGEYDOB: [place] [id number][place] Repository 92171Yse: 330 [id number] [phone]) Date:5425-09-13RB [address] [place] [address] 67219GF: 08/16/2018 Secondary NOT GIVENUNK [place] Insurance:SELF PAY [facility] Number: Effective Repository Date:2018-08-15 08/16/2018 TYRELL Eaton Primary TYRELL Eaton [place] [id number] Insurance:[employer] GEITGEYDOB: [place] [id number] Number: Repository [address]Jox: 330 [id number] [phone] (HP) Date:3345-98-71RG [address] [place] [address] 10099XL: 08/16/2018 Secondary NOT GIVENUNK Liv Insurance:SELF PAY [facility] Number: Effective Repository Date:2018-08-16 08/16/2018 TYRELL Eaton Primary TYRELL Eaton [place] [id number] Insurance:[employer] GEITGEYDOB: [place] [id number]: Repository 47[address]Jyt: 330 [id number] [phone]) Date:1453-50-21IX [address] [place] [address] 41744PS: 08/16/2018 Secondary NOT GIVENUNK [place] Insurance:SELF PAY [facility] Number: Effective Repository Date:2018-08-16 07/25/2018 TYRELL Eaton Primary TYRELL Eaton [place] [id number] Insurance:[employer] GEITGEYDOB: Community [place] [id number] Number: Repository [address]Kse: 330 [id number] [phone]) Date:8335-57-64YU [address] [place] [address] 26278YP: 07/25/2018 Secondary NOT GIVENUNK Liv Insurance:SELF PAY [facility] Number: Effective Repository Date:2018-07-25 07/25/2018 TYRELL Eaton Primary TYRELL Eaton [place] [id number] Insurance:[employer] GEITGEYDOB: Community [place] [id number], [place] Number: Repository [address]Myp: 330 [id number] [phone]) Date:0705-62-72OY [address] [place] [address] 31658FQ: 07/25/2018 Secondary NOT GIVENUNK Liv Insurance:SELF PAY [facility] Number: Effective Repository Date:2018-07-25 06/22/2018 TYRELL Eaton Primary TYRELL Eaton [place] [id number] Insurance:[employer] GEITGEYDOB: [place] [id number] Number: Repository 113[address]Ngw: 330 [id number] [phone] (HP) Date:0793-98-60WK [address] [place] [address] 51783BV: 06/22/2018 Secondary NOT GIVENUNK Liv Insurance:SELF PAY [facility] Number: Effective Repository Date:2018-06-22 04/04/2018 TYRELL Eaton Primary TYRELL Eaton [place] [id number] Insurance:[employer] GEITGEYDOB: Community [place] [id number], [place] Number: Repository [address]Wtu: 330 [id number] [phone] (HP) Date:9730-21-47VF [address] [place] [address] 61114YR: 04/04/2018 Secondary NOT GIVENUNK [place] Insurance:SELF PAY [facility] Number: Effective Repository Date:2018-04-04 04/01/2018 TYRELL Eaton Primary TYRELL Eaton [place] [id number] Insurance:[employer] GEITGEYDOB: Community [place] [id number], [place] Number: Repository 25228Zql: 330 [id number] [phone] (HP) Date:6655-97-06EP [address] [place] [address] 34872OT: 04/01/2018 Secondary NOT GIVENUNK [place] Insurance:SELF PAY [facility] Number: Effective Repository Date:2018-03-30 03/30/2018 TYRELL Etaon Primary TYRELL Eaton [place] [id number] Insurance:[employer] GEITGEYDOB: [place] [id number] [place] Number: Repository [id number]: 330 [id number] [phone] (HP) Date:8918-77-66XF [address] [place] [address] 98573ZL: 03/30/2018 Secondary NOT GIVENUNK Liv Insurance:SELF PAY [facility] Number: Effective Repository Date:2018-03-30 01/06/2018 TYRELL Eaton Primary TYRELL Eaton [place] [id number] Insurance:[employer] GEITGEYDOB: Community [place] [id number] [place] Number: Repository 04321Tlg: 330 [id number] [phone] (HP) Date:9849-90-19GG [address] [place] [address] 32175XW: 01/06/2018 Secondary NOT GIVENUNK [place] Insurance:SELF PAY [facility] Number: Effective Repository Date:2017-12-30 01/06/2018 TYERLL Eaton Primary TYRELL Eaton [place] [id number] Insurance:[employer] GEITGEYDOB: [place] [id number], [place] Number: Repository 79019Nti: 330 [id number] [phone] (HP) Date:5467-02-61MS [address] CENTERKULWINDERfort [place], [place] [address]MO: 01/06/2018 Secondary NOT GIVENUNK Liv Insurance:SELF PAY [facility] Number: Effective Repository Date:2018-01-06 01/04/2018 TYRELL Eaton Primary TYRELL Eaton [place] [id number] Insurance:[employer] GEITGEYDOB: Community [place] [id number] [place] Number: Repository 20716Kgl: (330) [id number] [phone] (HP) Date:9642-28-48RX [address] [place] [address] 32597TG: 01/04/2018 Secondary NOT GIVENUNK [place] Insurance:SELF PAY [facility] Number: Effective Repository Date:2018-01-04 12/30/2017 TYRELL Eaton Primary TYRELL Eaton [place] [id number] Insurance:[employer] GEITGEYDOB: Community [place] [id number] [place] Number: Repository [address]Hnu: (330 [id number] [phone] (HP) Date:7204-09-75RY [address] [place] [address] 38028FT: 12/30/2017 Secondary NOT GIVENUNK Ilv Insurance:SELF PAY [facility] Number: Effective Repository Date:2017-11-02 12/30/2017 Tyrell Eaton Primary Tyrell Eaton [place] [id number] Insurance:[employer] GeitgeyDOB: [place] [id number] Number: Repository [address]Ozx: 330 [id number] [phone] (HP) Date:5481-26-79TD [address] [place] [address] 68430UO: 12/30/2017 Secondary NOT GIVENUNK Liv Insurance:SELF PAY [facility] Number: Effective Repository Date:2017-12-30 12/30/2017 Tyrell Eaton Primary Tyrell Eaton [place] [id number] Insurance:[facility] GeitgeyDOB: [place] [id number], [place] Number: Repository [address]Duz: (555) [id number] [phone] Date:1237-93-32TW [address] [place] [address] 15701DN: 12/30/2017 Secondary NOT GIVENUNK [place] Insurance:SELF PAY [facility] Number: Effective Repository Date:2017-12-30
== END 2018-12-23 13:34 | disposition home or self-care (01) | DRG 291 ==
LOC: ED 11:25 → PCU 13:01
PROVIDERS: Internal Medicine Cardiovascular Disease; Physician Assistant; Admitting Provider Student in an Organized Health Care Education/Training Program; Emergency Provider Emergency Medicine; Family Provider Family Medicine; PCP Family Medicine; Referring Provider Student in an Organized Health Care Education/Training Program; Visit Provider Student in an Organized Health Care Education/Training Program
DX: I13.0 Hypertensive heart and chronic kidney disease with heart failure and stage 1 through stage 4 chronic kidney disease, or unspecified chronic kidney disease (principal); I50.33 Acute on chronic diastolic (congestive) heart failure; J91.8 Pleural effusion in other conditions classified elsewhere; N17.9 Acute kidney failure, unspecified; E87.2 Acidosis; E11.22 Type 2 diabetes mellitus with diabetic chronic kidney disease; N18.3 Chronic kidney disease, stage 3 (moderate); M06.9 Rheumatoid arthritis, unspecified; D63.1 Anemia in chronic kidney disease; D63.8 Anemia in other chronic diseases classified elsewhere; I35.0 Nonrheumatic aortic (valve) stenosis; I36.1 Nonrheumatic tricuspid (valve) insufficiency; I48.2 Chronic atrial fibrillation; N40.0 Benign prostatic hyperplasia without lower urinary tract symptoms; E66.9 Obesity, unspecified; I27.20 Pulmonary hypertension, unspecified; M15.9 Polyosteoarthritis, unspecified; Z85.46 Personal history of malignant neoplasm of prostate; Z68.31 Body mass index [BMI] 31.0-31.9, adult; Z92.3 Personal history of irradiation; Z79.01 Long term (current) use of anticoagulants; Z79.84 Long term (current) use of oral hypoglycemic drugs; Z79.899 Other long term (current) drug therapy
CPT/HCPCS: 32555; 36415; 71045; 71046; 72072; 72100; 80048; 81001; 82570; 82962; 83605; 83880; 84484; 84540; 85025; 85610; 85730; 93005; 93306; 97162; 97165; 97530; 97802; 99251; 99284; G0463; J1940

== ENCOUNTER → 2018-12-26 10:13 | Outpatient (CLI) | payer MEDICARE, SELFPAY ==
[2018-11-10 15:11] VITALS: BMI 29.1
[2018-12-20 12:52] VITALS: BMI 31.5
[2018-12-26 11:09] LABS: International Normalized Ratio 1.7; Prothrombin Time (Protime)PT. 19.9 SECONDS (11.7-14.9)
[2018-12-26 11:38] LABS: AST(SGOT) 14 U/L (15-37); Alanine Aminotransfer ALT/SGPT 18 U/L (16-61); Albumin, Serum 3.6 g/dL (3.2-5.0); Alkaline Phosphatase 69 U/L (45-117); Anion Gap 9 (5-15); BUN 31 mg/dL (7-18); BUN/Creat Ratio 14.6 RATIO (10-20); Calcium,Total 8.3 mg/dL (8.5-10.1); Chloride 107 mmol/L (98-107); Cholesterol 144 mg/dL (200); Creatinine, Serum 2.13 mg/dL (0.70-1.30); EST Glomerular Filtration Rate 32 mL/min (>60); Est Glom Filt Rate - Afr Amer 38 mL/min (>60); Globulin 3.9 g/dL (2.2-4.2); Glucose 123 mg/dL (74-106); High Density Lipoprotein 32 mg/dL; Potassium 3.9 mmol/L (3.5-5.1); Protein, Total 7.5 g/dL (6.4-8.2); Sodium Level 144 mmol/L (136-145); Triglycerides 112 mg/dL; Very Low Density Lipoprotein 22 mg/dL (5-40)
== END ==
PROVIDERS: Family Provider Family Medicine; PCP Family Medicine; Referring Provider Physician Assistant; Visit Provider Physician Assistant
DX: I10 Essential (primary) hypertension (principal); Z79.01 Long term (current) use of anticoagulants
CPT/HCPCS: 36415; 80048; 80061; 80076; 85610

== ENCOUNTER → 2018-12-30 09:19 | Outpatient (CLI) | payer MEDICARE, SELFPAY ==
[2018-12-20 12:52] VITALS: BMI 31.5
[2018-12-30 10:54] LABS: International Normalized Ratio 2.2; Prothrombin Time (Protime)PT. 24.9 SECONDS (11.7-14.9)
[2018-12-30 11:14] LABS: Anion Gap 8 (5-15); BUN 33 mg/dL (7-18); BUN/Creat Ratio 15.8 RATIO (10-20); Calcium,Total 8.7 mg/dL (8.5-10.1); Chloride 106 mmol/L (98-107); Creatinine, Serum 2.09 mg/dL (0.70-1.30); EST Glomerular Filtration Rate 32 mL/min (>60); Est Glom Filt Rate - Afr Amer 39 mL/min (>60); Glucose 120 mg/dL (74-106); Sodium Level 142 mmol/L (136-145)
== END ==
PROVIDERS: Family Provider Family Medicine; PCP Family Medicine; Referring Provider Physician Assistant; Visit Provider Physician Assistant
DX: I48.91 Unspecified atrial fibrillation (principal); I50.9 Heart failure, unspecified; N18.9 Chronic kidney disease, unspecified
CPT/HCPCS: 36415; 80048; 85610

== ENCOUNTER → 2019-01-17 11:51 | Outpatient (CLI) | payer MEDICARE, SELFPAY ==
[2019-01-02 15:18] VITALS: BMI 29.7
[2019-01-17 14:14] LABS: Prothrombin Time (Protime)PT. 47.5 SECONDS (11.7-14.9)
[2019-01-17 14:20] LABS: International Normalized Ratio 5.1
== END ==
PROVIDERS: Family Provider Family Medicine; PCP Family Medicine; Visit Provider Family Medicine
DX: I48.91 Unspecified atrial fibrillation (principal)
CPT/HCPCS: 36415; 85610

== ENCOUNTER 2019-01-26 20:05 | Inpatient (IN) | payer MEDICARE, SELFPAY ==
[2019-01-02 15:18] VITALS: BMI 29.7
[2019-01-26] VITALS (7 sets, daily range): BP systolic 132; BP diastolic 85; PULSE 74–82; RESP 13–20; TEMP 36.6–36.8; O2SAT 87–95; BMI 30.5
--- NOTE | 2019-01-26 20:37 | EKG12_ITS ---
Test Reason : Blood Pressure : / mmHG Vent. Rate : 080 BPM Atrial Rate : 088 BPM P-R Int : 000 ms QRS Dur : 088 ms QT Int : 388 ms P-R-T Axes : -77 -27 029 degrees QTc Int : 447 ms Atrial fibrillation Low voltage QRS Nonspecific ST and T wave abnormality Abnormal ECG Confirmed by DAVI PEREZ, ARI ([id number]), purchase request editor RANDELL TOMLIN ([id number]) on 01/30/2019 1:09:39 PM Referred By: Confirmed By:ARI TOMLINSON MD
--- NOTE | 2019-01-26 20:38 | ED.VISSUMM ---
- ER Visit Summary Date of Service: 01/26/19 Chief Complaint: Shortness of breath History of Present Illness: The patient is a 83 M presenting with shortness of breath x 1 week. He saw his primary care physician on Wednesday. He was diagnosed with bronchitis and started on Omnicef. states that his shortness of breath has increased. He is more short of breath with exertion. He has had a decreased appetite and has not been eating. She states he has complained of chest pain. He has a history of dementia and is a poor historian. Denies fever. Physical Examination: Vitals are stable. 91% on 2 L. Patient is afebrile. Alert no acute distress. HEENT exam is unremarkable. Neck is supple. Lungs are diminished, wheezing bilaterally. Heart is regular rate and rhythm. Abdomen is soft nontender nondistended. Extremities are unremarkable. Skin is warm and dry. No focal neurologic deficit. Remainder of exam is unremarkable. Emergency Department Course and Treatment: Patient was given albuterol/atrovent aerosols. EKG is sinus rate of 80. CBC shows hemoglobin 11.9, platelet 148. Glucose 132, BUN 37, creatinine 2.04. INR 3.0. Troponin is negative. BNP 561.7. Influenza negative. Chest x-ray shows large right pleural effusion. His pulse ox is 87% on room air. He was put on 2 L oxygen. With standing using a urinal his pulse ox dropped to 88% on 2 L. He is now satting at 93% on 4 L. Will discuss with hospitalist for admission. Disposition: Admission Impression: Dyspnea, right pleural effusion, hypoxia This note was generated with [employer] dictation software. It may contain incorrect words, spelling, and punctuation that were not noted in review of the chart prior to signing ED Disposition - Plan for ED Patient: Referrals: Pedro Marie MD [Primary Care Provider] -
--- NOTE | 2019-01-26 20:42 | ED.DCSUM_ITS ---
- ER Visit Summary Date of Service: 01/26/19 Chief Complaint: Shortness of breath History of Present Illness: The patient is a 83 M presenting with shortness of breath x 1 week. He saw his primary care physician on Wednesday. He was diagnosed with bronchitis and started on Omnicef. states that his elder rtness of breath has increased. He is more short of breath with exertion. He has had a decreased appetite and has not been eating. She states he has complained of chest pain. He has a history of dementia and is a poor historian. Denies fever. Physical Examination: Vitals are stable. 91% on 2 L. Patient is afebrile. Alert no acute distress. HEENT exam is unremarkable. Neck is supple. Lungs are diminished, wheezing bilaterally. Heart is regular rate and rhythm. Abdomen is soft nontender nondistended. Extremities are unremarkable. Skin is warm and dry. No focal neurologic deficit. Remainder of exam is unremarkable. Emergency Department Course and Treatment: Patient was given albuterol/atrovent aerosols. EKG is sinus rate of 80. CBC shows hemoglobin 11.9, platelet 148. Glucose 132, BUN 37, creatinine 2.04. INR 3.0. Troponin is negative. BNP 561.7. Influenza negative. Chest x-ray shows large right pleural effusion. His pulse ox is 87% on room air. He was put on 2 L oxygen. With standing using a urinal his pulse ox dropped to 88% on 2 L. He is now satting at 93% on 4 L. Will discuss with hospitalist for admission. Disposition: Admission Impression: Dyspnea, right pleural effusion, hypoxia This note was generated with [employer] dictation software. It may contain incorrect words, spelling, and punctuation that were not noted in review of the chart prior to signing ED Disposition - Plan for ED Patient: Referrals: Pedro Marie MD [Primary Care Provider] -
[2019-01-26] MEDS: Ipratropium/Albuterol Sulfate 3 ML AMPUL.NEB INHALATION (21:05)
--- NOTE | 2019-01-26 21:05 | RAD_ITS ---
STUDY: X-RAY CHEST REASON FOR EXAM: Male, 83 years old. Shortness of breath. TECHNIQUE: AP portable view of the chest on 2 films. COMPARISON: AP inspiratory and expiratory post thoracentesis chest x-rays December 23, 2018. FINDINGS: There is been a reaccumulation of the right pleural effusion, which occupies at least 80% of the right hemithorax and mildly displaces the cardiomediastinal structures to the left. There is residual aeration in segments of the right upper lobe and presumed collapse of the underlying remaining right lung. Infection is not excluded. The left lung is aerated with some flattening of the diaphragm may reflect chronic obstructive pulmonary disease. Grossly stable size heart. Normal visualized mediastinum and monalisa. Normal visualized pulmonary arteries. There is stable atherosclerotic calcification of the aortic arch. There are stable multilevel degenerative changes of the visualized thoracic spine. Changes of prior right shoulder arthroplasty with metal hardware again noted. There is no demonstrated abnormality of the visualized soft tissue structures of the upper abdomen. RAD/Chest 1 View (Portable) IMPRESSION: Accumulation of large right pleural effusion and presumed collapse of much of the underlying right lung. There is residual aeration at the right apex. Infection is not excluded. Electronically Signed: Alex Woo, at 22:20 EST , Service support ,
[2019-01-26 21:15] LABS: Absolute Lymphocyte Count 0.59 X10^3/ul (0.83-4.51); Absolute Neutrophil Count 5.5 X10^3/uL (2.0-7.7); Basophil# 0.05 X10^3/uL; Basophil% 0.7 % (0-1); Eosinophil# 0.46 X10^3/uL; Eosinophils% 6.4 % (0-5); Hematocrit 38.1 % (40-54); Hemoglobin 11.9 g/dl (13.0-16.5); Lymphocyte # 0.59 X10^3/ul (4.0); Lymphocyte % 8.2 % (19-41); Mean Corp Hgb Conc 31.2 g/gl (32-36); Mean Corpuscular Hgb 26.2 pg (27.0-32.0); Mean Corpuscular Volume 83.7 fL (80-94); Mean Platelet Vol. 8.8 fl (6.2-12.0); Monocyte# 0.53 X10^3/uL; Monocyte% 7.4 % (0-10); Neutrophil # 5.53 X10^3/uL (2.7-7.7); Neutrophil % 76.9 % (47-70); Platelet Count 148 K/mm3 (150-450); RBC Distribution Width CV 19.8 % (11.6-14.6); RBC Distribution Width SD 60.4 fl (35.1-43.9); Red Blood Count 4.55 M/mm3 (4.6-6.2); White Blood Count 7.2 K/mm3 (4.4-11.0)
[2019-01-26 21:17] LABS: POSITIVE COUNT NO; POSITIVE DIFFERENTIAL NO; POSITIVE MORPHOLOGY NO
[2019-01-26 21:18] LABS: Prothrombin Time (Protime)PT. 31.4 SECONDS (11.7-14.9)
[2019-01-26 21:29] LABS: Anion Gap 6 (5-15); BUN 37 mg/dL (7-18); BUN/Creat Ratio 18.1 RATIO (10-20); Calcium,Total 8.5 mg/dL (8.5-10.1); Chloride 102 mmol/L (98-107); Creatinine, Serum 2.04 mg/dL (0.70-1.30); EST Glomerular Filtration Rate 33 mL/min (>60); Est Glom Filt Rate - Afr Amer 40 mL/min (>60); Estimated Creatinine Clearance 23.87 ml/min; Glucose 132 mg/dL (74-106); Potassium 4.4 mmol/L (3.5-5.1); Sodium Level 135 mmol/L (136-145)
[2019-01-26 21:36] LABS: BNP,B-Type NATRIURETIC PEPTIDE 561.7 pg/mL (0-100)
[2019-01-26] MEDS: Furosemide 40 MG/4 ML Vial IV (22:46)
--- NOTE | 2019-01-26 23:42 | PCM.HP.STD ---
Problem List (1) Pleural effusion Status: Acute (2) (HFpEF) heart failure with preserved ejection fraction Status: Acute Qualifiers: Heart failure chronicity: acute Qualified Code(s): I50.31 - Acute diastolic (congestive) heart failure History of Present Illness Date of Admission: 01/26/19 Chief Complaint: shortness of breath. The patient is a 83 year old M presents with shortness of breath. Has been going on for 1 week. Saw his primary care doctor this week and diagnosed with bronchitis and received Omnicef. Despite that, shortness of breath got worse. Presented to the emergency room where he was noted right-sided pleural effusion. Patient was admitted last month with heart failure and acute pleural effusion and received a thoracentesis at that time. History is obtained by the family at the bedside as patient is a poor historian. [] Past Medical History Past Medical History (Chronic Problems): Chronic Problems (Last Reviewed 04/04/18 @ 15:08 by Shahla Juan) Valvular heart disease (Chronic) Nonrheumatic mitral (valve) insufficiency (Chronic) Non-rheumatic tricuspid valve insufficiency (Chronic) Non-rheumatic aortic stenosis (Chronic) History of left heart catheterization (Chronic ~01/2014) 05/02/[address] Robertson [facility]; 01/29/[address] Porter at [facility]: coronaries angiographically normal, pulmonary htn by RV eval, EF at that time was 45-50% History of pleural effusion (Chronic) 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 (Chronic) residential current use of 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) Hypertension (Chronic) Chronic renal failure, stage 3 (moderate) (Chronic) History of anxiety disorder (Chronic) Generalized osteoarthritis (Chronic) History of gout (Chronic) Mild dementia (Chronic) Rheumatoid arthritis (Chronic) Diabetes mellitus, type II (Chronic) Generalized weakness (Chronic) History of prostate cancer (Chronic) Status post radiotherapy Anemia of chronic disease (Chronic) due to CRF and RA PAF (paroxysmal atrial fibrillation) (Chronic) Medical History: Medical History (Last Reviewed 01/26/19 @ 23:43 by Josue Obregon DO) Nonrheumatic mitral (valve) insufficiency (Chronic) I34.0 Non-rheumatic tricuspid valve insufficiency (Chronic) I36.1 Non-rheumatic aortic stenosis (Chronic) I35.0 Chronic diastolic (congestive) heart failure (Acute) I50.32 History of pleural effusion (Chronic) Z87.09 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 (Chronic) 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) Z79.01 Hypertension (Chronic) I10 Chronic renal failure, stage 3 (moderate) (Chronic) N18.3 History of anxiety disorder (Chronic) Z86.59 Generalized osteoarthritis (Chronic) M15.9 History of gout (Chronic) Z87.39 Mild dementia (Chronic) F03.90 Rheumatoid arthritis (Chronic) M06.9 Diabetes mellitus, type II (Chronic) E11.9 History of prostate cancer (Chronic) Status post radiotherapy Anemia of chronic disease (Chronic) D63.8 due to CRF and RA PAF (paroxysmal atrial fibrillation) (Chronic) I48.0 Syncope and collapse R55 Allergies cimetidine HCl [From Tagamet] Allergy (Verified 01/26/19 20:11) Rash ciprofloxacin [From Cipro] Allergy (Verified 01/26/19 20:11) Rash amoxicillin trihydrate [From Augmentin] Adverse Reaction (Verified 01/26/19 20:11) Abd cramps/diarrhea cefdinir [From Omnicef] Adverse Reaction (Verified 01/26/19 20:11) Diarrhea indomethacin sodium [From Indocin] Adverse Reaction (Verified 01/26/19 20:11) Nausea memantine HCl [From Namenda] Adverse Reaction (Verified 01/26/19 20:11) dizziness potassium clavulanate [From Augmentin] Adverse Reaction (Verified 01/26/19 20:11) Abd cramps/diarrhea sitagliptin phosphate [From Januvia] Adverse Reaction (Verified 01/26/19 20:11) Nausea Home Medications: Ambulatory Orders Medication Instructions Recorded Cholecalciferol (Vitamin D3) 1,000 unit PO DAILY 12/25/13 [Vitamin D3] Aspirin [Aspirin, Baby] 81 mg PO QHS 11/17/14 Cyanocobalamin [Vitamin B12] 1,000 mcg PO DAILY@0800 11/17/14 Pantoprazole Sodium [Protonix] 40 mg PO DAILY 11/17/14 Dicyclomine HCl [Bentyl] 10 mg PO DINNER 03/15/17 Loratadine 10 mg PO DINNER 03/15/17 magnesium oxide 400 mg (241.3 mg 400 mg PO LUNCH 12/30/17 magnesium) tablet amiodarone 200 mg tablet 100 mg PO QHS #45 tab 08/04/18 Amlodipine [Norvasc] 5 mg PO QHS 12/20/18 Ascorbic Acid [Vitamin C] 1,000 mg PO DAILY 12/20/18 Galantamine HBr 8 mg PO DAILY 12/20/18 Tamsulosin HCl [Flomax] 0.4 mg PO DAILY 12/20/18 Carvedilol [Coreg (Beta Hemant)] 6.25 mg PO BID #60 tab 12/23/18 Furosemide [Lasix] 60 mg PO BID@1000,1800 #180 tab 12/23/18 warfarin 2 mg tablet 1 mg PO QODAY tab 12/27/18 warfarin 2 mg tablet 2 mg PO QODAY 12/27/18 ferrous sulfate 325 mg (65 mg 325 mg PO DAILY tab 01/02/19 iron) tablet lisinopril 40 mg tablet 20 mg PO DAILY tab 01/02/19 Calcium Carbonate [Calcium] 600 mg PO DAILY 01/26/19 Cefdinir 1 tab PO BID 01/26/19 Surgical History: Surgical History (Last Reviewed 01/26/19 @ 23:44 by Josue Obregon DO) History of left heart catheterization (Chronic) Onset Date: ~01/2014 Z98.890 05/02/[address] Robertson [facility]; 01/29/[address] Porter at [facility]: coronaries angiographically normal, pulmonary htn by RV smith, EF at that time was 45-50% History of bilateral inguinal hernia repair Z98.890, Z87.19 History of cholecystectomy Onset Date: ~1989 Z90.49 History of left knee replacement Z96.652 History of right shoulder replacement Z96.611 History of tonsillectomy Z90.89 Surgical History: cholecystectomy, total knee arthroplasty Psychiatric History: No pertinent psych hx Smoking Status: Never smoker - *Family History Maternal Family History: Family History (Last Reviewed 01/26/19 @ 23:44 by Josue Obregon DO) Father CAD (coronary artery disease) Myocardial infarction Brother Diabetes History Items: No pertinent history Paternal Family History: Family History (Last Reviewed 01/26/19 @ 23:44 by Josue Obregon DO) Father CAD (coronary artery disease) Myocardial infarction Brother Diabetes History Items: No pertinent history Review of Systems Comment: Please refer to the HPI. Review of systems unobtained the patient is a poor historian at this time. VTE Information - Inpt Only VTE Present on Admission: No VTE Mechan Device Prophylaxis: SCD's VTE Pharm Prophylaxis ordered?: No Patient Problems: Active and Suspected Problems (Last Reviewed 04/04/18 @ 15:08 by Shahla Juan) Pleural effusion (Acute) (HFpEF) heart failure with preserved ejection fraction (Acute) - Physical Exam General: No apparent distress HEENT: Atraumatic, Normocephalic Oral: Moist Mucosa, No Gingival or Mucosal Lesions/ Ulcerations Neck: No Nodes, Thyroid Normal Size and Texture Lungs: - - No breath sounds in the right lung mckee. Dullness to percussion in the right lung field. Clear in the left lung field. Cardiovascular: Regular rate, Regular Rhythm, Normal S1, Normal S2 Abdomen: Bowel Sounds Present, Soft, Non Tender, Non-Distended, No Hepato-splenomegaly Extremities: No Calf Tenderness, Edema Skin: No rashes, No breakdown Psych/Mental Status: - - Pleasantly confused Vital Signs Temp Pulse Resp BP Pulse Ox 36.8 C 81 17 132/85 H 93 01/26/19 22:00 01/26/19 22:00 01/26/19 22:00 01/26/19 20:06 01/26/19 22:00 Oxygen Flow Rate (L/min) 4 Oxygen Delivery Method Nasal Cannula Weight: 83.234 kg Body Mass Index (BMI) 30.5 Intake and Output for Last 24 Hours 01/24/19 01/25/19 01/26/19 23:59 23:59 23:59 Output Total 275 / 275 Balance -275 / -275 Microbiology Past 72 Hours 01/26/19 21:00 Influenza Types A,B Direct FA (NUZHAT) - Final Mucosa - Nasopharyngeal Laboratory Tests Past 24 Hrs 01/26/19 01/26/19 01/26/19 21:00 21:00 21:00 WBC 7.2 RBC 4.55 L Hgb 11.9 L Hct 38.1 L MCV 83.7 MCH 26.2 L MCHC 31.2 L RDW 19.8 H RDW Differential 60.4 H Plt Count 148 L MPV 8.8 Immature Gran % (Auto) 0.400 Neut % (Auto) 76.9 H Lymph % (Auto) 8.2 L [place] % (Auto) 7.4 Eos % (Auto) 6.4 H Baso % (Auto) 0.7 Absolute Neuts (auto) 5.5 Absolute Lymphs (auto) 0.59 L Total Counted Not Reportable PT INR Sodium 135 L Potassium 4.4 Chloride 102 Carbon Dioxide 27.0 Anion Gap 6 BUN 37 H Creatinine 2.04 H Estim Creat Clear Calc 23.87 Est GFR (MDRD) Af Amer 40 L Est GFR (MDRD) Non-Af 33 L BUN/Creatinine Ratio 18.1 Glucose 132 H Calcium 8.5 Troponin I < 0.015 B-Natriuretic Peptide 561.7 H 01/26/19 21:00 WBC RBC Hgb Hct MCV MCH MCHC RDW RDW Differential Plt Count MPV Immature Gran % (Auto) Neut % (Auto) Lymph % (Auto) [place] % (Auto) Eos % (Auto) Baso % (Auto) Absolute Neuts (auto) Absolute Lymphs (auto) Total Counted PT 31.4 H INR 3.0 Sodium Potassium Chloride Carbon Dioxide Anion Gap BUN Creatinine Estim Creat Clear Calc Est GFR (MDRD) Af Amer Est GFR (MDRD) Non-Af BUN/Creatinine Ratio Glucose Calcium Troponin I B-Natriuretic Peptide Chest x-ray reviewed and shows significant right-sided neural effusion with near complete obliteration of the right lung mckee. Assessment/Plan All Active Problems (Last Reviewed 04/04/18 @ 15:08 by Shahla Juan) Community acquired bacterial pneumonia (Acute) Atrial fibrillation (Acute) Pleural effusion (Acute) Renal insufficiency (Acute) Pleural effusion (Acute) (HFpEF) heart failure with preserved ejection fraction (Acute) Chronic diastolic (congestive) heart failure (Acute) Chest pain (Resolved) Dehydration (Resolved) Hypomagnesemia (Resolved) 1. Right-sided pleural effusion: Present been evaluated and was with a transudate of pleural effusion. Plan is to reverse his INR and ultrasound-guided right-sided thoracentesis. Family inquired about what else can be done about that. I did address that the options of decortication which require referral over to a cardiothoracic surgeon to see if that would be an option versus Pleurx catheter. I stated that Pleurx catheter would be used strictly for palliation, as patient is full CODE STATUS I recommended against it at this time. If that changes, then the Pleurx catheter could be an option for the patient. I do not feel that there is any urgent surgical need for a decortication at this time so I feel that cardiothoracic surgery evaluation can be done on outpatient basis. Despite the extent of his pleural effusion patient does not appear to be all that symptomatic at this time. Family advised that if his INR is not tomorrow then had a thoracentesis may not be able to be performed until January 29. 2. Acute heart failure with preserved ejection fraction: Mostly related with his pleural effusion. Ejection fraction has been 60% from echocardiogram from December 20. Change his Lasix from oral to IV 60 mg twice daily. Continue with lisinopril and carvedilol. Patient was already on carvedilol prior to this admission. 3. A. fib: Chronic. Continue with carvedilol and amiodarone. Hold off on Coumadin in light of the potential thoracentesis. 4. DVT prophylaxis: Currently anticoagulated with an INR of 3. We will add SCDs. Holding off and chemical prophylaxis otherwise once INR gets low enough given the thoracentesis depending when that can be done. 5. Advanced care planning. Discussed with patient's and son. I advised DNR Comfort Care arrest for the patient given his dementia and other comorbidities. They wish to keep him full CODE STATUS at this time. Code Visit Inpatient E&M: 21712 Init Hosp L2
[2019-01-27] VITALS (14 sets, daily range): BP systolic 98–124; BP diastolic 58–72; PULSE 74–123; RESP 16–18; TEMP 36.4–37.1; O2SAT 92–94; BMI 29.3
[2019-01-27 07:14] LABS: Anion Gap 9 (5-15); BUN 34 mg/dL (7-18); BUN/Creat Ratio 17.7 RATIO (10-20); Calcium,Total 8.2 mg/dL (8.5-10.1); Chloride 104 mmol/L (98-107); Creatinine, Serum 1.92 mg/dL (0.70-1.30); EST Glomerular Filtration Rate 36 mL/min (>60); Est Glom Filt Rate - Afr Amer 43 mL/min (>60); Estimated Creatinine Clearance 25.36 ml/min; Glucose 96 mg/dL (74-106); Potassium 3.9 mmol/L (3.5-5.1); Sodium Level 138 mmol/L (136-145)
[2019-01-27 07:16] LABS: International Normalized Ratio 2.8; Prothrombin Time (Protime)PT. 29.4 SECONDS (11.7-14.9)
[2019-01-27] MEDS: Pantoprazole Sodium 40 MG Tablet PO (08:33)
[2019-01-27] MEDS: Furosemide 100 MG/10 ML Vial 60 MG IV (08:34)
[2019-01-27] MEDS: Tamsulosin HCl 0.4 MG Capsule PO (08:36)
[2019-01-27] MEDS: Galantamine Hydrobromide 4 MG Tablet PO ×2 (08:36→21:35)
[2019-01-27] MEDS: Cyanocobalamin 500 MCG Tablet 1000 MCG PO (08:36)
[2019-01-27] MEDS: Calcium (Elemental) 500 MG Tablet PO (08:36)
[2019-01-27] MEDS: Lisinopril 20 MG Tablet PO (08:37)
[2019-01-27] MEDS: Ferrous Sulfate 325 MG Tablet PO (08:37)
[2019-01-27] MEDS: Carvedilol 6.25 MG Tablet PO ×2 (08:37→21:35)
[2019-01-27] MEDS: Magnesium Oxide 400 MG Tablet PO (11:18)
[2019-01-27] MEDS: Ascorbic Acid 500 MG Tablet 1000 MG PO (11:18)
[2019-01-27 11:30] LABS: Bedside Glucose 162 mg/dL (70-110)
--- NOTE | 2019-01-27 11:47 | PCM.PROGNOTE ---
Patient Problems: Active and Suspected Problems (Last Reviewed 01/26/19 @ 23:43 by Josue Obregon DO) Pleural effusion (Acute) (HFpEF) heart failure with preserved ejection fraction (Acute) Subjective: The patient is an 83-year-old male with a past medical history of nonrheumatic mitral insufficiency, tricuspid insufficiency and aortic stenosis, secondary pulmonary hypertension, chronic anticoagulation, hypertension, chronic renal failure stage III, anxiety disorder, osteoarthritis, gout, mild dementia, rheumatoid arthritis, diabetes mellitus type 2, prostate cancer (status post radiotherapy), paroxysmal atrial fibrillation and anemia of chronic disease who presented to the emergency department at [facility] on 01/26/2019 complaining of increasing shortness of breath over the preceding week. He had been seen by his primary care physician and given Omnicef for bronchitis. Vital signs in the emergency department at presentation were temp 97.8, pulse rate 74, blood pressure 132/85, respiratory rate 14 and he was 87% saturated on room air and 91% saturated on a 2 L nasal cannula. Labs showed a white blood cell count of 7.2 with 77% neutrophils. Hemoglobin was 11.9(actually high for him...9.8 in November) and platelets were mildly decreased at 148,000 which is not new for him. INR was 3.0. Sodium was low at 135 and the BUN was 37 with a creatinine of 2.04 which is within his baseline. Troponin was less than 0.015 and the BNP was 562. Chest x-ray showed reaccumulation of large right pleural effusion. Patient previously had thoracentesis in November 2018 and approximately 500 cc of fluid was removed. He was admitted to a monitored bed on the progressive care unit and started on Lasix 60 mg IV twice daily. Ultrasound-guided thoracentesis was ordered for 01/30/2019 and Coumadin is on hold. There are no diagnostics studies on the pleural fluid since 2014 All events the past 24 hours of been reviewed. He has been afebrile since admission. Current heart rate is 95 and the blood pressure is 114/58. His respiratory rate is 18 and he is 92% on a 4 L nasal cannula. Fluid balance is -440 since admission. INR is 2.8 today. Sodium is now 138 and the BUN is 34 with a creatinine of 1.92. Total PSA in August 2018 was 0.17. The TSH in June 2018 was normal at 1.69 with a normal free T4 of 1.23. LFTs in November 2018 was unremarkable. He is SOB. He denies chest pain. He does complain of nausea and has oral intake is been decreased per his . tells me that he is always cold. His legs have been swollen. No cough and no fevers or rigors. No dysuria but, he has incontinence. tells me that he goes to the [facility] frequently but only goes a small amount. Not on any meds for RA. He has had the effusion drained twice in the past but not for several years until this November. Interpretation Summary - November 2018 The study was technically difficult. Left ventricular systolic function is normal. The estimated ejection fraction is 60 %. Mildly dilated right ventricle. The left atrium is mildly enlarged. The right atrium is mildly enlarged. There is mild mitral annular calcification. Mild diffuse mitral valve thickening. Mild-Moderate (1-2+) mitral valve insufficiency. Moderate (2+) tricuspid valve insufficiency. Moderate to severe aortic valve stenosis. Right ventricular systolic pressure estimated to be 39 mmHg. Unable to assess diastolic dysfunction. - Physical Exam General: Alert, Cooperative, - - appears SOB HEENT: Atraumatic, PERRLA, Normocephalic Neck: Supple, Trachea Midline, JVD, Bilateral Lungs: Tachypneic, Using Accessory Muscles - mild, Wheezes, - - There are essentially no BS's on the Right side posteriorly and there is egophony present. The left lung is clear to auscultation throughout with good air exchange. No rales in the left base. Cardiovascular: No murmurs, Irregular Rate, No rub noted, No Gallop, Tachycardic, - - Telemetry shows atrial fibrillation with periods of rapid ventricular response. Abdomen: Bowel Sounds Present, Non Tender, Distended - and tympanic Extremities: No cyanosis, Edema - 1-2 + pretibial edema Skin: No rashes, No breakdown Neurological: Cranial nerves II-XII grossly intact, Neuro grossly intact Psych/Mental Status: Normal Affect, Appropriate Vital Signs Temp Pulse Resp BP Pulse Ox 98.3 F 85 18 114/58 L 92 01/27/19 10:00 01/27/19 10:00 01/27/19 10:00 01/27/19 10:01/27/19 10:00 Oxygen Flow Rate (L/min) 4 Oxygen Delivery Method Nasal Cannula Weight: 176 lb 5.917 oz Body Mass Index (BMI) 29.3 Intake and Output for Last 24 Hours 01/25/19 01/26/19 01/27/19 23:59 23:59 23:59 Intake Total 60 / 60 Output Total 275 / 275 275 / 275 Balance -275 / -275 -215 / -215 Microbiology Past 72 Hours 01/26/19 21:00 Influenza Types A,B Direct FA (NUZHAT) - Final Mucosa - Nasopharyngeal Laboratory Tests Past 24 Hrs 01/26/19 01/26/19 01/26/19 21:00 21:00 21:00 WBC 7.2 RBC 4.55 L Hgb 11.9 L Hct 38.1 L MCV 83.7 MCH 26.2 L MCHC 31.2 L RDW 19.8 H RDW Differential 60.4 H Plt Count 148 L MPV 8.8 Immature Gran % (Auto) 0.400 Neut % (Auto) 76.9 H Lymph % (Auto) 8.[address] [place] % (Auto) 7.4 Eos % (Auto) 6.4 H Baso % (Auto) 0.7 Absolute Neuts (auto) 5.5 Absolute Lymphs (auto) 0.59 L Total Counted Not Reportable PT INR Sodium 135 L Potassium 4.4 Chloride 102 Carbon Dioxide 27.0 Anion Gap 6 BUN 37 H Creatinine 2.04 H Estim Creat Clear Calc 23.87 Est GFR (MDRD) Af Amer 40 L Est GFR (MDRD) Non-Af 33 L BUN/Creatinine Ratio 18.1 Glucose 132 H Calcium 8.5 Troponin I < 0.015 B-Natriuretic Peptide 561.7 H 01/26/19 01/27/19 01/27/19 21:00 05:55 05:55 WBC RBC Hgb Hct MCV MCH MCHC RDW RDW Differential Plt Count MPV Immature Gran % (Auto) Neut % (Auto) Lymph % (Auto) [place] % (Auto) Eos % (Auto) Baso % (Auto) Absolute Neuts (auto) Absolute Lymphs (auto) Total Counted PT 31.4 H 29.4 H INR 3.0 2.8 Sodium 138 Potassium 3.9 Chloride 104 Carbon Dioxide 25.0 Anion Gap 9 BUN 34 H Creatinine 1.92 H Estim Creat Clear Calc 25.36 Est GFR (MDRD) Af Amer 43 L Est GFR (MDRD) Non-Af 36 L BUN/Creatinine Ratio 17.7 Glucose 96 Calcium 8.2 L Troponin I B-Natriuretic Peptide POC Glucose 01/27/19 11:15 POC Glucose 162 H Medical Necessity - Tobacco Use Smoking Status: Never smoker Assessment/Plan All Active Problems (Last Reviewed 01/26/19 @ 23:43 by Josue Obregon DO) Community acquired bacterial pneumonia (Acute) Atrial fibrillation (Acute) Pleural effusion (Acute) Renal insufficiency (Acute) Pleural effusion (Acute) (HFpEF) heart failure with preserved ejection fraction (Acute) Chronic diastolic (congestive) heart failure (Acute) Chest pain (Resolved) Dehydration (Resolved) Hypomagnesemia (Resolved) Impressions 1. Acute respiratory insufficiency with hypoxemia due to a very large R pleural effusion 2, Large R pleural effusion -I am suspicious that the pleural effusion is in fact not due to diastolic congestive heart failure because the left lung today is completely clear and he has had minimal output with diuretics. 3. moderate to severe aortic stenosis 4. Pulmonary hypertension-likely secondary to aortic stenosis 5. Mild biatrial enlargement 6. Moderate TR 7. Chronic anticoagulation with warfarin-on hold for thoracentesis 8. History of prostate cancer treated with radiotherapy 9. Paroxysmal atrial fibrillation 10. Chronic renal failure stage III 11. Diabetes mellitus type 2 12. Hypertension 13. 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 He has never been on any medication for treating rheumatoid arthritis. 14. Gout 15. Suspected mild dementia Dr. Guerra has been consulted to participate in management Continue to hold warfarin Vitamin K 5 mg p.o. today Continue supplemental oxygen Recheck lab in the a.m. ESR is 47 and the CRP is 48-need to consider empyema as etiology of the large right pleural effusion RA is less than 10. SHANON was ordered If he decompensates may need to reverse and consider thoracentesis sooner than Wednesday Discontinue furosemide-his mucous membranes are very dry, the left lung is completely clear to auscultation with no rales or wheezes and he has scant urine output Code Visit Inpatient E&M: 48863 [facility] Hosp L3
--- NOTE | 2019-01-27 13:13 | PCM.CONS.GEN ---
Reason for Consult Date of Consultation: 01/27/19 Reason for Consultation: Acute hypoxic respiratory insufficiency History of Present Illness: The patient is an 83-year-old male, with a history as outlined below, who presented to the emergency department on January 26 with progressive shortness of breath over one weeks duration. He had been seen by his primary care provider 1 week ago and started on antibiotics for suspected bronchitis. The patient has a known history of obstructive sleep apnea and currently follows with Dr. Kaur. The patient was admitted to the hospital December 20 under similar circumstances. The patient did undergo an ultrasound-guided thoracentesis at that time. 500 cc of crescencio colored fluid was removed from the patient's right hemithorax. It appears that it was felt that the etiology for his pleural effusion was related to heart failure at that time. However, pleural fluid studies were never sent at that time. The patient reportedly improved symptomatically with the use of IV diuretics. The patient's medical history is also significant for valvular heart disease, chronic kidney disease, osteoarthritis, atrial fibrillation, diastolic heart failure and Prostate CA. He is currently anticoagulated on Coumadin. The patient, at his baseline, does not utilize supplemental oxygen. He is a lifelong non-smoker. He does not currently utilize any metered-dose inhalers in his home environment. The patient denied the presence of a cough, fevers or chills. On presentation to the emergency department, the patient was noted to be afebrile and hemodynamically stable. He was hypoxic, saturating 87% on room air. Laboratory evaluation revealed no evidence of a leukocytosis. INR was noted to be 3.0. Creatinine was increased to 2.04. Troponin was negative and BNP was elevated to 561. Plain film chest x-ray revealed near complete opacification of the right hemithorax with sparing of the right upper lobe. The patient was subsequently admitted to the progressive care unit, where he was treated with IV diuretics. Past Medical History Past Medical History (Chronic Problems): Chronic Problems (Last Reviewed 01/26/19 @ 23:43 by Josue Obregon DO) Valvular heart disease (Chronic) Nonrheumatic mitral (valve) insufficiency (Chronic) Non-rheumatic tricuspid valve insufficiency (Chronic) Non-rheumatic aortic stenosis (Chronic) History of left heart catheterization (Chronic ~01/2014) 05/02/[address] Robertson [facility]; 01/29/[address] 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) Hypertension (Chronic) Chronic renal failure, stage 3 (moderate) (Chronic) History of anxiety disorder (Chronic) Generalized osteoarthritis (Chronic) History of gout (Chronic) Mild dementia (Chronic) Rheumatoid arthritis (Chronic) Diabetes mellitus, type II (Chronic) Generalized weakness (Chronic) History of prostate cancer (Chronic) Status post radiotherapy Anemia of chronic disease (Chronic) due to CRF and RA PAF (paroxysmal atrial fibrillation) (Chronic) Medical History: Medical History (Last Reviewed 01/26/19 @ 23:43 by Josue Obregon DO) Nonrheumatic mitral (valve) insufficiency (Chronic) I34.0 Non-rheumatic tricuspid valve insufficiency (Chronic) I36.1 Non-rheumatic aortic stenosis (Chronic) I35.0 Chronic diastolic (congestive) heart failure (Acute) I50.32 History of pleural effusion (Chronic) Z87.09 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 (Chronic) 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 of 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) Z79.01 Hypertension (Chronic) I10 Chronic renal failure, stage 3 (moderate) (Chronic) N18.3 History of anxiety disorder (Chronic) Z86.59 Generalized osteoarthritis (Chronic) M15.9 History of gout (Chronic) Z87.39 Mild dementia (Chronic) F03.90 Rheumatoid arthritis (Chronic) M06.9 Diabetes mellitus, type II (Chronic) E11.9 History of prostate cancer (Chronic) Status post radiotherapy Anemia of chronic disease (Chronic) D63.8 due to CRF and RA PAF (paroxysmal atrial fibrillation) (Chronic) I48.0 Syncope and collapse R55 Allergies cimetidine HCl [From Tagamet] Allergy (Verified 01/26/19 20:11) Rash ciprofloxacin [From Cipro] Allergy (Verified 01/26/19 20:11) Rash amoxicillin trihydrate [From Augmentin] Adverse Reaction (Verified 01/26/19 20:11) Abd cramps/diarrhea cefdinir [From Omnicef] Adverse Reaction (Verified 01/26/19 20:11) Diarrhea indomethacin sodium [From Indocin] Adverse Reaction (Verified 01/26/19 20:11) Nausea memantine HCl [From Namenda] Adverse Reaction (Verified 01/26/19 20:11) dizziness potassium clavulanate [From Augmentin] Adverse Reaction (Verified 01/26/19 20:11) Abd cramps/diarrhea sitagliptin phosphate [From Januvia] Adverse Reaction (Verified 01/26/19 20:11) Nausea Home Medications: Ambulatory Orders Medication Instructions Recorded Cholecalciferol (Vitamin D3) 1,000 unit PO DAILY 12/25/13 [Vitamin D3] Aspirin [Aspirin, Baby] 81 mg PO QHS 11/17/14 Cyanocobalamin [Vitamin B12] 1,000 mcg PO DAILY@0800 11/17/14 Pantoprazole Sodium [Protonix] 40 mg PO DAILY 11/17/14 Dicyclomine HCl [Bentyl] 10 mg PO DINNER 03/15/17 Loratadine 10 mg PO DINNER 03/15/17 magnesium oxide 400 mg (241.3 mg 400 mg PO LUNCH 12/30/17 magnesium) tablet amiodarone 200 mg tablet 100 mg PO QHS #45 tab 08/04/18 Amlodipine [Norvasc] 5 mg PO QHS 12/20/18 Ascorbic Acid [Vitamin C] 1,000 mg PO DAILY 12/20/18 Galantamine HBr 8 mg PO DAILY 12/20/18 Tamsulosin HCl [Flomax] 0.4 mg PO DAILY 12/20/18 Carvedilol [Coreg (Beta Hemant)] 6.25 mg PO BID #60 tab 12/23/18 Furosemide [Lasix] 60 mg PO BID@1000,1800 #180 tab 12/23/18 warfarin 2 mg tablet 1 mg PO QODAY tab 12/27/18 warfarin 2 mg tablet 2 mg PO QODAY 12/27/18 ferrous sulfate 325 mg (65 mg 325 mg PO DAILY tab 01/02/19 iron) tablet lisinopril 40 mg tablet 20 mg PO DAILY tab 01/02/19 Calcium Carbonate [Calcium] 600 mg PO DAILY 01/26/19 Cefdinir 1 tab PO BID 01/26/19 Surgical History: Surgical History (Last Reviewed 01/26/19 @ 23:44 by Josue Obregon DO) History of left heart catheterization (Chronic) Onset Date: ~01/2014 Z98.890 05/02/[address] Robertson [facility]; 01/29/[address] Porter at [facility]: coronaries angiographically normal, pulmonary htn by RV eval, EF at that time was 45-50% History of bilateral inguinal hernia repair Z98.890, Z87.19 History of cholecystectomy Onset Date: ~1989 Z90.49 History of left knee replacement Z96.652 History of right shoulder replacement Z96.611 History of tonsillectomy Z90.89 Surgical History: cholecystectomy, total knee arthroplasty Psychiatric History: No pertinent psych hx Smoking Status: Never smoker - *Family History Maternal Family History: Family History (Last Reviewed 01/26/19 @ 23:44 by Josue Obregon DO) Father CAD (coronary artery disease) Myocardial infarction Brother Diabetes History Items: No pertinent history Paternal Family History: Family History (Last Reviewed 01/26/19 @ 23:44 by Josue Obregon DO) Father CAD (coronary artery disease) Myocardial infarction Brother Diabetes History Items: No pertinent history Review of Systems Constitutional: Reports: Weakness, Weight Change Eyes: Denies: Blurred vision, Double vision HEENT: Denies: Head Aches, Sinus Congestion, Sinus Drainage Cardiovascular: Denies: Chest Pain, Palpitations Respiratory: Reports: Shortness of Breath, Shortness of breath at rest. Denies: Cough, Sputum production Gastrointestinal: Denies: Abdominal Pain, Nausea, Vomiting Genitourinary: Denies: Dysuria Musculoskeletal: Denies: Joint Pain, Joint Tenderness Skin: Denies: Rash, Wounds Neurological: Denies: Numbness, Tingling, Focal weakness Psychiatric: Denies: Anxiety, Depression, Homicidal Ideations, Suicidal Ideations Hematologic/ Lymphatic: Denies: Easy Bruising, Easy Bleeding Patient Problems: Active and Suspected Problems (Last Reviewed 01/26/19 @ 23:43 by Josue Obregon DO) Pleural effusion (Acute) (HFpEF) heart failure with preserved ejection fraction (Acute) Objective: The patient's most recent lab work, culture data and imaging studies have all been personally reviewed. Surface echocardiogram dated November 2018 revealed normal LV size and function with an ejection fraction of 60%. The patient had a mildly dilated RV in the right ventricular systolic pressure estimated to be 39 mmHg. Rapid influenza screen was negative. - Physical Exam General: Alert, Cooperative, - - Resting in bedside recliner. is present at the bedside as well. HEENT: Atraumatic, PERRLA, Normocephalic Oral: No Gingival or Mucosal Lesions/ Ulcerations Neck: Supple, No Nodes, Trachea Midline Lungs: Short of Breath, Tachypneic, - - Significantly diminished air movement throughout the right hemithorax with bilateral expiratory wheezing present Cardiovascular: Normal S1, Normal S2, Irregular Rate, Tachycardic Abdomen: Bowel Sounds Present, Soft, Non Tender Extremities: No clubbing, No cyanosis, Edema Skin: No breakdown Musculoskeletal: No Tenderness to Palpation of Joints or Extremities Lymphatic: No Cervical, Supraclavicular, or Inguinal Adenopathy Neurological: Cranial nerves II-XII grossly intact, Neuro grossly intact Psych/Mental Status: Normal Affect, Appropriate Vital Signs Temp Pulse Resp BP Pulse Ox 36.8 C 95 18 114/58 L 92 01/27/19 10:00 01/27/19 11:55 01/27/19 10:00 01/27/19 10:00 01/27/19 10:00 Oxygen Flow Rate (L/min) 3 Oxygen Delivery Method Nasal Cannula Weight: 176 lb 5.917 oz Body Mass Index (BMI) 29.3 Intake and Output for Last 24 Hours 01/25/19 01/26/19 01/27/19 23:59 23:59 23:59 Intake Total 360 / 360 Output Total 275 / 275 525 / 525 Balance -275 / -275 -165 / -165 Microbiology Past 72 Hours 01/26/19 21:00 Influenza Types A,B Direct FA (NUZHAT) - Final Mucosa - Nasopharyngeal Laboratory Tests Past 24 Hrs 01/26/19 01/26/19 01/26/19 21:00 21:00 21:00 WBC 7.2 RBC 4.55 L Hgb 11.9 L Hct 38.1 L MCV 83.7 MCH 26.2 L MCHC 31.2 L RDW 19.8 H RDW Differential 60.4 H Plt Count 148 L MPV 8.8 Immature Gran % (Auto) 0.400 Neut % (Auto) 76.9 H Lymph % (Auto) 8.2 L [place] % (Auto) 7.4 Eos % (Auto) 6.4 H Baso % (Auto) 0.7 Absolute Neuts (auto) 5.5 Absolute Lymphs (auto) 0.59 L Total Counted Not Reportable PT INR Sodium 135 L Potassium 4.4 Chloride 102 Carbon Dioxide 27.0 Anion Gap 6 BUN 37 H Creatinine 2.04 H Estim Creat Clear Calc 23.87 Est GFR (MDRD) Af Amer 40 L Est GFR (MDRD) Non-Af 33 L BUN/Creatinine Ratio 18.1 Glucose 132 H Calcium 8.5 Phosphorus Magnesium Total Bilirubin Direct Bilirubin AST ALT Alkaline Phosphatase Troponin I < 0.015 B-Natriuretic Peptide 561.7 H Total Protein Albumin 01/26/19 01/27/19 01/27/19 21:00 05:55 05:55 WBC RBC Hgb Hct MCV MCH MCHC RDW RDW Differential Plt Count MPV Immature Gran % (Auto) Neut % (Auto) Lymph % (Auto) [place] % (Auto) Eos % (Auto) Baso % (Auto) Absolute Neuts (auto) Absolute Lymphs (auto) Total Counted PT 31.4 H 29.4 H INR 3.0 2.8 Sodium 138 Potassium 3.9 Chloride 104 Carbon Dioxide 25.0 Anion Gap 9 BUN 34 H Creatinine 1.92 H Estim Creat Clear Calc 25.36 Est GFR (MDRD) Af Amer 43 L Est GFR (MDRD) Non-Af 36 L BUN/Creatinine Ratio 17.7 Glucose 96 Calcium 8.2 L Phosphorus Magnesium Total Bilirubin Direct Bilirubin AST ALT Alkaline Phosphatase Troponin I B-Natriuretic Peptide Total Protein Albumin 01/27/19 05:55 WBC RBC Hgb Hct MCV MCH MCHC RDW RDW Differential Plt Count MPV Immature Gran % (Auto) Neut % (Auto) Lymph % (Auto) [place] % (Auto) Eos % (Auto) Baso % (Auto) Absolute Neuts (auto) Absolute Lymphs (auto) Total Counted PT INR Sodium Potassium Chloride Carbon Dioxide Anion Gap BUN Creatinine Estim Creat Clear Calc Est GFR (MDRD) Af Amer Est GFR (MDRD) Non-Af BUN/Creatinine Ratio Glucose Calcium Phosphorus Pending Magnesium Pending Total Bilirubin Pending Direct Bilirubin Pending AST Pending ALT Pending Alkaline Phosphatase Pending Troponin I B-Natriuretic Peptide Total Protein Pending Albumin Pending POC Glucose 01/27/19 11:15 POC Glucose 162 H Clinical Impression(s) from Imaging Studies Chest X-Ray 01/26/19 21:05 IMPRESSION: Accumulation of large right pleural effusion and presumed collapse of much of the underlying right lung. There is residual aeration at the right apex. Infection is not excluded. Electronically Signed: Alex Woo at 22:20 EST , Service support , Assessment/Plan All Active Problems (Last Reviewed 01/26/19 @ 23:43 by Josue Obregon DO) Community acquired bacterial pneumonia (Acute) Atrial fibrillation (Acute) Pleural effusion (Acute) Renal insufficiency (Acute) Pleural effusion (Acute) (HFpEF) heart failure with preserved ejection fraction (Acute) Chronic diastolic (congestive) heart failure (Acute) Chest pain (Resolved) Dehydration (Resolved) Hypomagnesemia (Resolved) RECOMMENDATIONS: 1. Continue to hold Coumadin. 2. Once coagulopathy is corrected, proceed with ultrasound-guided thoracentesis. 3. Check respiratory viral panel 4. Gentle diuresis as tolerated. IMPRESSIONS: 1. Acute hypoxemic respiratory insufficiency due to large right pleural effusion The patient was previously admitted to the hospital in November under similar circumstances and underwent an ultrasound-guided thoracentesis. However, no pleural fluid studies were ever sent to that time. Therefore, the etiology for the patient's current pleural effusion is unknown. While it was previously felt that the patient's pleural effusion was related to underlying heart failure, one would also have to consider underlying infectious, inflammatory or malignant etiologies. I agree with holding the patient's Coumadin for now. Once the patient's coagulopathy has corrected, I would proceed with thoracentesis. Continue gentle diuresis as tolerated. If the patient does decompensate in any way, I would have a low threshold to start antibiotics, given the undifferentiated nature of the patient's pleural effusion. Wean supplemental oxygen to maintain saturations at or above 90%. 2. Heart failure with preserved ejection fraction/atrial fibrillation/valvular heart disease/chronic anticoagulation Continue outpatient medical regimen and gentle diuresis as tolerated. 3. Obstructive sleep apnea Unknown home settings, as the patient routinely follows with Dr. Kaur. Records from his office can always be obtained. However, in the interim, the patient can be placed on BiPAP 12/6 nightly. 4. GERD/BPH/hypertension/hyperlipidemia/advanced age Complicates care, management, recovery and prognosis. Likely okay to continue home medications. This note was generated with [employer] software. It may contain incorrect words, spelling, and punctuation that were not noted in checking the note before signing. Code Visit Inpatient E&M: 31781 Init Hosp L3
[2019-01-27 13:21] LABS: AST(SGOT) 16 U/L (15-37); Alanine Aminotransfer ALT/SGPT 17 U/L (16-61); Albumin, Serum 3.3 g/dL (3.2-5.0); Alkaline Phosphatase 86 U/L (45-117); Bilirubin, Direct 0.19 mg/dL (0.00-0.30); Globulin 3.6 g/dL (2.2-4.2); Magnesium 2.4 mg/dL (1.6-2.6); Protein, Total 6.9 g/dL (6.4-8.2)
[2019-01-27 13:28] LABS: Rheumatoid Factor < 10.0 IU/mL (<15)
--- NOTE | 2019-01-27 14:02 | CASEMGMT ---
YANG CHAMBERS assessment: Face to Face with patient for initial transition planning/care coordination assessment. YANG CHAMBERS introduced self and role at [facility], pt voices understanding and consents to assessment at this time. Pt is sitting up in chair in no distress at this time. Pt is A/Ox4 at this time and answers all questions appropriately at this time. Pt's at bedside and answers most questions for pt at this time. Care providers, pharmacy, and demographics verified at this time. PCP: Pedro Marie Specialists: German, cardio; Vincent pulm; Lara, uro; Keila, neuro Preferred [facility]acy: [facility] Insurance: [facility] Prescription Benefit: [facility] Living Will/HPOA: Pt has a LW/HPOA and they are currently on file at [facility] at this time. Pt's , Marbella Gay, is HPOA. LNOK: Marbella Gay, ; Hemant Gay, son Living Arrangements: Pt lives with on main level of 1.5story home and states no concerns at home at this time. states that pt is independent with ADL's. Transportation: Pt's drives and states no transportation concerns at this time. DME/HHC: Pt has the following DME: cane, raised toilet, grab bars, shower chair, and cpap thru [facility]. Pt is current with [facility] and states no hx of HHC or SNF in the past. does inquire about pt need for home oxygen and advised that pt will be tested prior to discharge, voices understanding. Pt/ state no concerns with pt going home at time of discharge. Pt is retired. Pt does not smoke or drink ETOH. Pt/ voice no further concerns/needs at this time. CM to follow PT/OT for possible HHC need, home oxygen testing and for any further discharge planning/needs. Advised pt/ to ask for CM if any further questions/concerns/needs arise, voices understanding. Plan: [place] YANG CHAMBERS
[2019-01-27 14:03] LABS: Erythrocyte Sedimentation Rate 47 mm/hr (0-20)
[2019-01-27 16:26] LABS: Bedside Glucose 131 mg/dL (70-110)
[2019-01-27] MEDS: Dicyclomine 10 MG Capsule PO (17:29)
[2019-01-27] MEDS: Loratadine 10 MG Tablet PO (17:29)
[2019-01-27] MEDS: Amiodarone 200 MG Tablet 100 MG PO (21:35)
[2019-01-27] MEDS: Aspirin 81 MG TAB.CHEW PO (21:35)
[2019-01-27] MEDS: amLODIPine 5 MG Tablet PO (21:35)
[2019-01-28] VITALS (12 sets, daily range): BP systolic 105–148; BP diastolic 68–84; PULSE 83–100; RESP 16–18; TEMP 36.6–37.2; O2SAT 94–95
[2019-01-28 07:33] LABS: Hematocrit 36.1 % (40-54); Hemoglobin 11.7 g/dl (13.0-16.5); Mean Corp Hgb Conc 32.4 g/gl (32-36); Mean Corpuscular Hgb 27.5 pg (27.0-32.0); Mean Corpuscular Volume 84.7 fL (80-94); Mean Platelet Vol. 9.6 fl (6.2-12.0); Platelet Count 149 K/mm3 (150-450); Red Blood Count 4.26 M/mm3 (4.6-6.2); White Blood Count 7.1 K/mm3 (4.4-11.0)
[2019-01-28 07:36] LABS: Scan Indicated on CBC? Y/N NO
[2019-01-28 07:55] LABS: Anion Gap 12 (5-15); BUN 34 mg/dL (7-18); BUN/Creat Ratio 17.1 RATIO (10-20); Calcium,Total 8.7 mg/dL (8.5-10.1); Chloride 101 mmol/L (98-107); Creatinine, Serum 1.99 mg/dL (0.70-1.30); EST Glomerular Filtration Rate 34 mL/min (>60); Est Glom Filt Rate - Afr Amer 42 mL/min (>60); Estimated Creatinine Clearance 24.47 ml/min; Glucose 148 mg/dL (74-106); Magnesium 2.5 mg/dL (1.6-2.6); Phosphorus 3.7 mg/dL (2.5-4.9); Potassium 3.9 mmol/L (3.5-5.1); Sodium Level 139 mmol/L (136-145)
--- NOTE | 2019-01-28 08:39 | PCM.PROGNOTE ---
Patient Problems: Active and Suspected Problems (Last Reviewed 01/26/19 @ 23:43 by Josue Obregon DO) Pleural effusion (Acute) (HFpEF) heart failure with preserved ejection fraction (Acute) Subjective: The patient was seen and examined at the bedside this morning. Events from the last 24 hours have been reviewed. The patient is currently afebrile, hemodynamically stable and maintaining appropriate oxygen saturations on 4 L/min via nasal cannula. He is currently nonlabored and sitting in his bedside recliner, eating breakfast. Despite his current supplemental oxygen requirement, he does report improvement in his breathing quality. Objective: The patient's most recent lab work, culture data and imaging studies have all been personally reviewed. Surface echocardiogram dated November 2018 revealed normal LV size and function with an ejection fraction of 60%. The patient had a mildly dilated RV in the right ventricular systolic pressure estimated to be 39 mmHg. Rapid influenza screen was negative. - Physical Exam General: Alert, Cooperative, No apparent distress HEENT: Atraumatic, PERRLA, Normocephalic Oral: No Gingival or Mucosal Lesions/ Ulcerations Neck: Supple, No Nodes, Trachea Midline Lungs: - - There continues to be diminished air movement, most pronounced throughout the right hemithorax with dullness to percussion of the right base. He is not currently wheezing. Cardiovascular: Normal S1, Normal S2, No murmurs, Irregular Rate Abdomen: Bowel Sounds Present, Soft, Non Tender Extremities: No clubbing, No cyanosis, No edema Skin: - - No significant change from previous. Musculoskeletal: No Tenderness to Palpation of Joints or Extremities Lymphatic: No Cervical, Supraclavicular, or Inguinal Adenopathy Neurological: Cranial nerves II-XII grossly intact, Neuro grossly intact Psych/Mental Status: Normal Affect, Appropriate Vital Signs Temp Pulse Resp BP Pulse Ox 36.8 C 88 16 140/84 H 95 01/28/19 08:29 01/28/19 08:29 01/28/19 08:29 01/28/19 08:29 01/28/19 08:29 Oxygen Flow Rate (L/min) 4 Oxygen Delivery Method Nasal Cannula Weight: 177 lb 4.026 oz Body Mass Index (BMI) 29.3 Intake and Output for Last 24 Hours 01/26/19 01/27/19 01/28/19 23:59 23:59 23:59 Intake Total 880 / 880 220 / 220 Output Total 275 / 275 525 / 525 Balance -275 / -275 355 / 355 220 / 220 Microbiology Past 72 Hours 01/26/19 21:00 Influenza Types A,B Direct FA (NUZHAT) - Final Mucosa - Nasopharyngeal Laboratory Tests Past 24 Hrs 01/27/19 01/27/19 01/27/19 05:55 05:55 05:55 WBC RBC Hgb Hct MCV MCH MCHC RDW RDW Differential Plt Count MPV ESR 47 H Sodium Potassium Chloride Carbon Dioxide Anion Gap BUN Creatinine Estim Creat Clear Calc Est GFR (MDRD) Af Amer Est GFR (MDRD) Non-Af BUN/Creatinine Ratio Glucose Calcium Phosphorus 4.0 Magnesium 2.4 Total Bilirubin 0.60 Direct Bilirubin 0.19 AST 16 ALT 17 Alkaline Phosphatase 86 C-React Prot Ext Range 48.40 H Total Protein 6.9 Albumin 3.3 Globulin 3.6 Rheumatoid Factor < 10.0 SHANON Screen RANDELL-1 Antibody SS-A/Ro IgG Antibody SS-B/La IgG Antibody Sm (Walters) Antibody DINING ROOM ATTENDANT Antibody Scl-70 Scleroderma Ab Double Strand DNA Ab Centromere B Antibody 01/27/19 01/28/19 01/28/19 13:25 06:15 06:15 WBC 7.1 RBC 4.26 L Hgb 11.7 L Hct 36.1 L MCV 84.7 MCH 27.5 MCHC 32.4 RDW 20.0 H RDW Differential 61.0 H Plt Count 149 L MPV 9.6 ESR Sodium 139 Potassium 3.9 Chloride 101 Carbon Dioxide 26.0 Anion Gap 12 BUN 34 H Creatinine 1.99 H Estim Creat Clear Calc 24.47 Est GFR (MDRD) Af Amer 42 L Est GFR (MDRD) Non-Af 34 L BUN/Creatinine Ratio 17.1 Glucose 148 H Calcium 8.7 Phosphorus 3.7 Magnesium 2.5 Total Bilirubin Direct Bilirubin AST ALT Alkaline Phosphatase C-React Prot Ext Range Total Protein Albumin Globulin Rheumatoid Factor SHANON Screen Pending RANDELL-1 Antibody Pending SS-A/Ro IgG Antibody Pending SS-B/La IgG Antibody Pending Sm (Walters) Antibody Pending DINING ROOM ATTENDANT Antibody Pending Scl-70 Scleroderma Ab Pending Double Strand DNA Ab Pending Centromere B Antibody Pending POC Glucose 01/27/19 01/27/19 16:14 11:15 POC Glucose 131 H 162 H Clinical Impression(s) from Imaging Studies Chest X-Ray 01/26/19 21:05 IMPRESSION: Accumulation of large right pleural effusion and presumed collapse of much of the underlying right lung. There is residual aeration at the right apex. Infection is not excluded. Electronically Signed: Alex Woo, at 22:20 EST , Service support , Medical Necessity - Tobacco Use Smoking Status: Never smoker Assessment/Plan All Active Problems (Last Reviewed 01/26/19 @ 23:43 by Josue Obregon DO) Community acquired bacterial pneumonia (Acute) Atrial fibrillation (Acute) Pleural effusion (Acute) Renal insufficiency (Acute) Pleural effusion (Acute) (HFpEF) heart failure with preserved ejection fraction (Acute) Chronic diastolic (congestive) heart failure (Acute) Chest pain (Resolved) Dehydration (Resolved) Hypomagnesemia (Resolved) RECOMMENDATIONS: 1. Continue to hold Coumadin. Check daily INR. 2. Once coagulopathy is corrected, proceed with ultrasound-guided thoracentesis. 3. Check respiratory viral panel 4. Gentle diuresis as tolerated. IMPRESSIONS: 1. Acute hypoxemic respiratory insufficiency due to large right pleural effusion The patient was previously admitted to the hospital in November under similar circumstances and underwent an ultrasound-guided thoracentesis. However, no pleural fluid studies were ever sent to that time. Therefore, the etiology for the patient's current pleural effusion is unknown. While it was previously felt that the patient's pleural effusion was related to underlying heart failure, one would also have to consider underlying infectious, inflammatory or malignant etiologies. I agree with holding the patient's Coumadin for now. Once the patient's coagulopathy has corrected, I would proceed with thoracentesis. Continue gentle diuresis as tolerated. If the patient does decompensate in any way, I would have a low threshold to start antibiotics, given the undifferentiated nature of the patient's pleural effusion. Wean supplemental oxygen to maintain saturations at or above 90%. 2. Heart failure with preserved ejection fraction/atrial fibrillation/valvular heart disease/chronic anticoagulation Continue outpatient medical regimen and gentle diuresis as tolerated. 3. Obstructive sleep apnea Unknown home settings, as the patient routinely follows with Dr. Kaur. Records from his office can always be obtained. However, in the interim, the patient can be placed on BiPAP 12/6 nightly. 4. GERD/BPH/hypertension/hyperlipidemia/advanced age Complicates care, management, recovery and prognosis. Likely okay to continue home medications. This note was generated with [employer] dictation software. It may contain incorrect words, spelling, and punctuation that were not noted in checking the note before signing. Code Visit Inpatient E&M: 38046 Subs Hosp L2
--- NOTE | 2019-01-28 08:42 | PN_ITS ---
Patient Problems: Active and Suspected Problems (Last Reviewed 01/26/19 @ 23:43 by Josue Obregon DO) Pleural effusion (Acute) (HFpEF) heart failure with preserved ejection fraction (Acute) Subjective: The patient was seen and examined at the bedside this morning. Events from the last 24 hours have been reviewed. The patient is currently afebrile, hemodynamically stable and maintaining appropriate oxygen saturations on 4 L/min via nasal cannula. He is currently nonlabored and sitting in his bedside recliner, eating breakfast. Despite his current supplemental oxygen requirement, he does report improvement in his breathing quality. Objective: The patient's most recent lab work, culture data and imaging studies have all been personally reviewed. Surface echocardiogram dated November 2018 revealed normal LV size and function with an ejection fraction of 60%. The patient had a mildly dilated RV in the right ventricular systolic pressure estimated to be 39 mmHg. Rapid influenza screen was negative. - Physical Exam General: Alert, Cooperative, No apparent distress HEENT: Atraumatic, PERRLA, Normocephalic Oral: No Gingival or Mucosal Lesions/ Ulcerations Neck: Supple, No Nodes, Trachea Midline Lungs: - - There continues to be diminished air movement, most pronounced throughout the right hemithorax with dullness to percussion of the right base. He is not currently wheezing. Cardiovascular: Normal S1, Normal S2, No murmurs, Irregular Rate Abdomen: Bowel Sounds Present, Soft, Non Tender Extremities: No clubbing, No cyanosis, No edema Skin: - - No significant change from previous. Musculoskeletal: No Tenderness to Palpation of Joints or Extremities Lymphatic: No Cervical, Supraclavicular, or Inguinal Adenopathy Neurological: Cranial nerves II-XII grossly intact, Neuro grossly intact Psych/Mental Status: Normal Affect, Appropriate Vital Signs Temp Pulse Resp BP Pulse Ox 36.8 C 88 16 140/84 H 95 01/28/19 08:29 01/28/19 08:29 01/28/19 08:29 01/28/19 08:29 01/28/19 08:29 Oxygen Flow Rate (L/min) 4 Oxygen Delivery Method Nasal Cannula Weight: 177 lb 4.026 oz Body Mass Index (BMI) 29.3 Intake and Output for Last 24 Hours 01/26/19 01/27/19 01/28/19 23:59 23:59 23:59 Intake Total 880 / 880 220 / 220 Output Total 275 / 275 525 / 525 Balance -275 / -275 355 / 355 220 / 220 Microbiology Past 72 Hours 01/26/19 21:00 Influenza Types A,B Direct FA (NUZHAT) - Final Mucosa - Nasopharyngeal Laboratory Tests Past 24 Hrs 01/27/19 01/27/19 01/27/19 05:55 05:55 05:55 WBC RBC Hgb Hct MCV MCH MCHC RDW RDW Differential Plt Count MPV ESR 47 H Sodium Potassium Chloride Carbon Dioxide Anion Gap BUN Creatinine Estim Creat Clear Calc Est GFR (MDRD) Af Amer Est GFR (MDRD) Non-Af BUN/Creatinine Ratio Glucose Calcium Phosphorus 4.0 Magnesium 2.4 Total Bilirubin 0.60 Direct Bilirubin 0.19 AST 16 ALT 17 Alkaline Phosphatase 86 C-React Prot Ext Range 48.40 H Total Protein 6.9 Albumin 3.3 Globulin 3.6 Rheumatoid Factor < 10.0 SHANON Screen RANDELL-1 Antibody SS-A/Ro IgG Antibody SS-B/La IgG Antibody Sm (Walters) Antibody SENIOR CLIMATE ADVISOR Antibody Scl-70 Scleroderma Ab Double Strand DNA Ab Centromere B Antibody 01/27/19 01/28/19 01/28/19 13:25 06:15 06:15 WBC 7.1 RBC 4.26 L Hgb 11.7 L Hct 36.1 L MCV 84.7 MCH 27.5 MCHC 32.4 RDW 20.0 H RDW Differential 61.0 H Plt Count 149 L MPV 9.6 ESR Sodium 139 Potassium 3.9 Chloride 101 Carbon Dioxide 26.0 Anion Gap 12 BUN 34 H Creatinine 1.99 H Estim Creat Clear Calc 24.47 Est GFR (MDRD) Af Amer 42 L Est GFR (MDRD) Non-Af 34 L BUN/Creatinine Ratio 17.1 Glucose 148 H Calcium 8.7 Phosphorus 3.7 Magnesium 2.5 Total Bilirubin Direct Bilirubin AST ALT Alkaline Phosphatase C-React Prot Ext Range Total Protein Albumin Globulin Rheumatoid Factor SHANON Screen Pending RANDELL-1 Antibody Pending SS-A/Ro IgG Antibody Pending SS-B/La IgG Antibody Pending Sm (Walters) Antibody Pending SENIOR CLIMATE ADVISOR Antibody Pending Scl-70 Scleroderma Ab Pending Double Strand DNA Ab Pending Centromere B Antibody Pending POC Glucose 01/27/19 01/27/19 16:14 11:15 POC Glucose 131 H 162 H Clinical Impression(s) from Imaging Studies Chest X-Ray 01/26/19 21:05 IMPRESSION: Accumulation of large right pleural effusion and presumed collapse of much of the underlying right lung. There is residual aeration at the right apex. Infection is not excluded. Electronically Signed: Alex Woo, at 22:20 EST , Service support , Medical Necessity - Tobacco Use Smoking Status: Never smoker Assessment/Plan All Active Problems (Last Reviewed 01/26/19 @ 23:43 by Josue Obregon DO) Community acquired bacterial pneumonia (Acute) Atrial fibrillation (Acute) Pleural effusion (Acute) Renal insufficiency (Acute) Pleural effusion (Acute) (HFpEF) heart failure with preserved ejection fraction (Acute) Chronic diastolic (congestive) heart failure (Acute) Chest pain (Resolved) Dehydration (Resolved) Hypomagnesemia (Resolved) RECOMMENDATIONS: 1. Continue to hold Coumadin. Check daily INR. 2. Once coagulopathy is corrected, proceed with ultrasound-guided thoracentesis. 3. Check respiratory viral panel 4. Gentle diuresis as tolerated. IMPRESSIONS: 1. Acute hypoxemic respiratory insufficiency due to large right pleural effusion The patient was previously admitted to the hospital in November under similar circumstances and underwent an ultrasound-guided thoracentesis. However, no pleural fluid studies were ever sent to that time. Therefore, the etiology for the patient's current pleural effusion is unknown. While it was previously felt that the patient's pleural effusion was related to underlying heart failure, one would also have to consider underlying infectious, inflammatory or malignant etiologies. I agree with holding the patient's Coumadin for now. Once the patient's coagulopathy has corrected, I would proceed with thoracentesis. Continue gentle diuresis as tolerated. If the patient does decompensate in any way, I would have a low threshold to start antibiotics, given the undifferentiated nature of the patient's pleural effusion. Wean supplemental oxygen to maintain saturations at or above 90%. 2. Heart failure with preserved ejection fraction/atrial fibrillation/valvular heart disease/chronic anticoagulation Continue outpatient medical regimen and gentle diuresis as tolerated. 3. Obstructive sleep apnea Unknown home settings, as the patient routinely follows with Dr. Kaur. Records from his office can always be obtained. However, in the interim, the patient can be placed on BiPAP 12/6 nightly. 4. GERD/BPH/hypertension/hyperlipidemia/advanced age Complicates care, management, recovery and prognosis. Likely okay to continue home medications. This note was generated with [employer] dictation software. It may contain incorrect words, spelling, and punctuation that were not noted in checking the note before signing. Code Visit Inpatient E&M: 29612 Subs Hosp L2
[2019-01-28] MEDS: Calcium (Elemental) 500 MG Tablet PO (08:58)
[2019-01-28] MEDS: Tamsulosin HCl 0.4 MG Capsule PO (08:58)
[2019-01-28] MEDS: Carvedilol 6.25 MG Tablet PO ×2 (08:58→20:06)
[2019-01-28] MEDS: Ferrous Sulfate 325 MG Tablet PO (08:58)
[2019-01-28] MEDS: Lisinopril 20 MG Tablet PO (08:59)
[2019-01-28] MEDS: Galantamine Hydrobromide 4 MG Tablet PO ×2 (08:59→20:05)
[2019-01-28] MEDS: Pantoprazole Sodium 40 MG Tablet PO (08:59)
[2019-01-28] MEDS: Cyanocobalamin 500 MCG Tablet 1000 MCG PO (08:59)
[2019-01-28] MEDS: Magnesium Oxide 400 MG Tablet PO (11:25)
[2019-01-28] MEDS: Ascorbic Acid 500 MG Tablet 1000 MG PO (11:25)
--- NOTE | 2019-01-28 15:04 | PN_ITS ---
Patient Problems: Active and Suspected Problems (Last Reviewed 01/26/19 @ 23:43 by Josue Obregon DO) Pleural effusion (Acute) (HFpEF) heart failure with preserved ejection fraction (Acute) Subjective: All events of the past 24 hours been reviewed Afebrile since admission Vital signs are stable. He is 95% saturated on a 3 L nasal cannula. All lab was personally reviewed. White blood cell count is 7.1. Hemoglobin is stable at 11.7. Platelets are stable at 149,000. BUN is 34 with a creatinine of 1.99. Respiratory panel is positive for rhinovirus He tells me he thinks his breathing is somewhat better today. Still coughing. Denies chills. No CP, no nausea, no abdominal pain. Objective: PHYSICAL EXAM: GENERAL: alert, oriented X 3, Cooperative, NAD ORAL: moist mucosa, no mucosal lesions NECK: less JVD today, supple, trachea midline LUNGS: Not tachypneic at rest today, no accessory muscle use, rare expiratory wheeze, there is better air exchange in the upper right posterior lung today. No rales, still with dullness to percussion and some egophony in the right lower lung posteriorly HEART: irreg, Normal S1 and S2, no rub, no gallop TLEEMETRY: AF with periods of RVR - usually when he is active ABDOMEN: soft, NT, ND, BS present, no guarding with palpation EXTREMITIES: 1+ pretibial edema, no cyanosis, no calf tenderness SKIN: No rashes, no breakdown NEUROLOGIC: no focal neurologic deficits PSYCH: appropriate, normal affect, pleasant - Physical Exam Vital Signs Temp Pulse Resp BP Pulse Ox 97.9 F 85 16 121/68 H 95 01/28/19 14:20 01/28/19 14:20 01/28/19 14:20 01/28/19 14:20 01/28/19 14:20 Oxygen Flow Rate (L/min) 3 Oxygen Delivery Method Nasal Cannula Weight: 177 lb 4.026 oz Body Mass Index (BMI) 29.3 Intake and Output for Last 24 Hours 01/26/19 01/27/19 01/28/19 23:59 23:59 23:59 Intake Total 880 / 880 610 / 610 Output Total 275 / 275 525 / 525 Balance -275 / -275 355 / 355 610 / 610 Microbiology Past 72 Hours 01/27/19 15:15 Respiratory Panel (PCR) - Final Mucosa - Nose Rhinovirus 01/26/19 21:00 Influenza Types A,B Direct FA (NUZHAT) - Final Mucosa - Nasopharyngeal Laboratory Tests Past 24 Hrs 01/28/19 01/28/19 06:15 06:15 WBC 7.1 RBC 4.26 L Hgb 11.7 L Hct 36.1 L MCV 84.7 MCH 27.5 MCHC 32.4 RDW 20.0 H RDW Differential 61.0 H Plt Count 149 L MPV 9.6 Sodium 139 Potassium 3.9 Chloride 101 Carbon Dioxide 26.0 Anion Gap 12 BUN 34 H Creatinine 1.99 H Estim Creat Clear Calc 24.47 Est GFR (MDRD) Af Amer 42 L Est GFR (MDRD) Non-Af 34 L BUN/Creatinine Ratio 17.1 Glucose 148 H Calcium 8.7 Phosphorus 3.7 Magnesium 2.5 POC Glucose 01/27/19 16:14 POC Glucose 131 H Medical Necessity - Tobacco Use Smoking Status: Never smoker Assessment/Plan All Active Problems (Last Reviewed 01/26/19 @ 23:43 by Josue Obregon DO) Community acquired bacterial pneumonia (Acute) Atrial fibrillation (Acute) Pleural effusion (Acute) Renal insufficiency (Acute) Pleural effusion (Acute) (HFpEF) heart failure with preserved ejection fraction (Acute) Chronic diastolic (congestive) heart failure (Acute) Chest pain (Resolved) Dehydration (Resolved) Hypomagnesemia (Resolved) Impressions 1. Acute respiratory insufficiency with hypoxemia due to a very large R pleural effusion 2, Large R pleural effusion -I am suspicious that the pleural effusion is in fact not due to diastolic congestive heart failure because the left lung today is completely clear and he has had minimal output with diuretics. 3. moderate to severe aortic stenosis 4. Pulmonary hypertension-likely secondary to aortic stenosis 5. Mild biatrial enlargement 6. Moderate TR 7. Chronic anticoagulation with warfarin-on hold for thoracentesis 8. History of prostate cancer treated with radiotherapy 9. Paroxysmal atrial fibrillation 10. Chronic renal failure stage III 11. Diabetes mellitus type 2 12. Hypertension 13. 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 He has never been on any medication for treating rheumatoid arthritis. 14. Gout 15. Suspected mild dementia 16. Rhinovirus Recheck lab in the a.m....... if the INR is still greater than 1.6 will give 2.5-5 mg of vitamin K tomorrow in preparation for planned thoracentesis Wednesday. Diagnostic testing has been ordered on the pleural fluid. Restart p.o. Lasix No significant urine residuals post void CXR in the AM Code Visit Inpatient E&M: 24219 Subs Hosp L2
[2019-01-28] MEDS: Furosemide 20 MG Tablet 60 MG PO (18:11)
[2019-01-28] MEDS: Dicyclomine 10 MG Capsule PO (18:11)
[2019-01-28] MEDS: Loratadine 10 MG Tablet PO (18:12)
[2019-01-28] MEDS: Aspirin 81 MG TAB.CHEW PO (20:06)
[2019-01-28] MEDS: Amiodarone 200 MG Tablet 100 MG PO (20:06)
[2019-01-28] MEDS: amLODIPine 5 MG Tablet PO (20:06)
[2019-01-29] VITALS (21 sets, daily range): BP systolic 98–147; BP diastolic 57–91; PULSE 75–102; RESP 16–22; TEMP 36.6–37.2; O2SAT 93–97
[2019-01-29 06:37] LABS: International Normalized Ratio 1.4; Prothrombin Time (Protime)PT. 17.4 SECONDS (11.7-14.9)
[2019-01-29 06:59] LABS: Anion Gap 7 (5-15); BUN 30 mg/dL (7-18); BUN/Creat Ratio 16.7 RATIO (10-20); Calcium,Total 8.4 mg/dL (8.5-10.1); Chloride 105 mmol/L (98-107); EST Glomerular Filtration Rate 39 mL/min (>60); Est Glom Filt Rate - Afr Amer 47 mL/min (>60); Estimated Creatinine Clearance 27.05 ml/min; Glucose 101 mg/dL (74-106); Magnesium 2.2 mg/dL (1.6-2.6); Potassium 3.9 mmol/L (3.5-5.1); Sodium Level 138 mmol/L (136-145)
[2019-01-29] MEDS: Galantamine Hydrobromide 4 MG Tablet PO ×2 (08:06→21:23)
[2019-01-29] MEDS: Pantoprazole Sodium 40 MG Tablet PO (08:06)
[2019-01-29] MEDS: Ascorbic Acid 500 MG Tablet 1000 MG PO (08:06)
[2019-01-29] MEDS: Cyanocobalamin 500 MCG Tablet 1000 MCG PO (08:06)
[2019-01-29] MEDS: Carvedilol 6.25 MG Tablet PO ×2 (08:06→21:21)
[2019-01-29] MEDS: Furosemide 20 MG Tablet 60 MG PO (08:07)
[2019-01-29] MEDS: Ferrous Sulfate 325 MG Tablet PO (08:07)
[2019-01-29] MEDS: Calcium (Elemental) 500 MG Tablet PO (08:07)
[2019-01-29] MEDS: Tamsulosin HCl 0.4 MG Capsule PO (08:07)
[2019-01-29] MEDS: Lisinopril 20 MG Tablet PO (08:07)
--- NOTE | 2019-01-29 09:20 | RAD_ITS ---
STUDY: X-RAY CHEST REASON FOR EXAM: Male, 83 years old. Right pleural effusion. TECHNIQUE: PA and lateral views of the chest were obtained. COMPARISON: January 26, 2019 FINDINGS: There is a large right pleural effusion with mild improvement from the previous study. There is blunting of the left costophrenic angle which may represent pleural thickening versus small effusion. Normal size heart. Normal mediastinum and monalisa. Normal visualized pulmonary arteries. Normal visualized aortic arch and descending thoracic aorta. Normal visualized thoracic spine. Normal visualized ribs, clavicles, and shoulders. There is no demonstrated abnormality of the visualized soft tissue structures of the upper abdomen. RAD/Chest PA and Lateral IMPRESSION: Mild improvement of large right pleural effusion. Possible small left effusion. Underlying parenchymal disease is not excluded. Electronically Signed: Ozzie Nguyen, at 10:47 EST Tel , Service support ,
--- NOTE | 2019-01-29 09:47 | PN_ITS ---
Patient Problems: Active and Suspected Problems (Last Reviewed 01/26/19 @ 23:43 by Josue Obreogn DO) Pleural effusion (Acute) (HFpEF) heart failure with preserved ejection fraction (Acute) Subjective: The patient was seen and examined at the bedside this morning. Events from the last 24 hours have been reviewed. The patient is currently afebrile, hemodynamically stable and maintaining appropriate oxygen saturations on 3 L/min via nasal cannula. INR is improved this morning at 1.4. Creatinine is stable. The patient is resting comfortably without any significant complaints. He currently denies the presence of shortness of breath. Objective: The patient's most recent lab work, culture data and imaging studies have all been personally reviewed. Surface echocardiogram dated November 2018 revealed normal LV size and function with an ejection fraction of 60%. The patient had a mildly dilated RV in the right ventricular systolic pressure estimated to be 39 mmHg. Rapid influenza screen was negative. Respiratory viral panel was positive for rhinovirus. - Physical Exam General: Alert, Cooperative, No apparent distress HEENT: Atraumatic, PERRLA, Normocephalic Oral: No Gingival or Mucosal Lesions/ Ulcerations Neck: Supple, No Nodes, Trachea Midline Lungs: - - There is severely diminished air movement throughout the right lower and right mid lung mckee. There is dullness to percussion of the right lung base. No significant wheezing was noted on today's examination. Cardiovascular: Normal S1, Normal S2, No murmurs, Irregular Rate Abdomen: Bowel Sounds Present, Soft, Non Tender Extremities: No clubbing, No cyanosis, Edema Skin: - - No significant change from previous. Musculoskeletal: No Tenderness to Palpation of Joints or Extremities Lymphatic: No Cervical, Supraclavicular, or Inguinal Adenopathy Neurological: Cranial nerves II-XII grossly intact, Neuro grossly intact Psych/Mental Status: Normal Affect, Appropriate Vital Signs Temp Pulse Resp BP Pulse Ox 36.6 C 88 16 129/83 H 96 01/29/19 08:00 01/29/19 08:00 01/29/19 08:00 01/29/19 08:00 01/29/19 08:20 Oxygen Flow Rate (L/min) 3 Oxygen Delivery Method Nasal Cannula Weight: 178 lb 5.663 oz Body Mass Index (BMI) 29.3 Intake and Output for Last 24 Hours 03/12/1701/28/19 01/29/19 23:59 23:59 23:59 Intake Total 880 / 880 1090 / 1090 0 / 0 Output Total 525 / 525 400 / 400 Balance 355 / 355 1090 / 1090 -400 / -400 Microbiology Past 72 Hours 01/27/19 15:15 Respiratory Panel (PCR) - Final Mucosa - Nose Rhinovirus 01/26/19 21:00 Influenza Types A,B Direct FA (NUZHAT) - Final Mucosa - Nasopharyngeal Laboratory Tests Past 24 Hrs 01/29/19 01/29/19 05:05 05:05 PT 17.4 H INR 1.4 Sodium 138 Potassium 3.9 Chloride 105 Carbon Dioxide 26.0 Anion Gap 7 BUN 30 H Creatinine 1.80 H Estim Creat Clear Calc 27.05 Est GFR (MDRD) Af Amer 47 L Est GFR (MDRD) Non-Af 39 L BUN/Creatinine Ratio 16.7 Glucose 101 Calcium 8.4 L Magnesium 2.2 Clinical Impression(s) from Imaging Studies Chest X-Ray 01/26/19 21:05 IMPRESSION: Accumulation of large right pleural effusion and presumed collapse of much of the underlying right lung. There is residual aeration at the right apex. Infection is not excluded. Electronically Signed: Alex Woo, at 22:20 EST , Service support , Medical Necessity - Tobacco Use Smoking Status: Never smoker Assessment/Plan All Active Problems (Last Reviewed 01/26/19 @ 23:43 by Josue Obregon DO) Community acquired bacterial pneumonia (Acute) Atrial fibrillation (Acute) Pleural effusion (Acute) Renal insufficiency (Acute) Pleural effusion (Acute) (HFpEF) heart failure with preserved ejection fraction (Acute) Chronic diastolic (congestive) heart failure (Acute) Chest pain (Resolved) Dehydration (Resolved) Hypomagnesemia (Resolved) RECOMMENDATIONS: 1. Continue to hold Coumadin. Check daily INR. 2. Once coagulopathy is corrected, proceed with ultrasound-guided thoracentesis. 3. Gentle diuresis as tolerated. 4. Wean supplemental oxygen to maintain saturations at or above 90% IMPRESSIONS: 1. Acute hypoxemic respiratory insufficiency due to large right pleural effusion and rhinovirus URI The patient was previously admitted to the hospital in November under similar circumstances and underwent an ultrasound-guided thoracentesis. However, no pleural fluid studies were ever sent to that time. Therefore, the etiology for the patient's current pleural effusion is unknown. While it was previously felt that the patient's pleural effusion was related to underlying heart failure, one would also have to consider underlying infectious, inflammatory or malignant etiologies. I agree with holding the patient's Coumadin for now. Once the patient's coagulopathy has corrected, I would proceed with thoracentesis. Continue gentle diuresis as tolerated. Wean supplemental oxygen to maintain saturations at or above 90%. 2. Heart failure with preserved ejection fraction/atrial fibrillation/valvular heart disease/chronic anticoagulation Continue outpatient medical regimen and gentle diuresis as tolerated. 3. Obstructive sleep apnea Unknown home settings, as the patient routinely follows with Dr. Kaur. Records from his office can always be obtained. However, in the interim, the patient can be placed on BiPAP 12/6 nightly. 4. GERD/BPH/hypertension/hyperlipidemia/advanced age Complicates care, management, recovery and prognosis. Likely okay to continue home medications. This note was generated with [employer] dictation software. It may contain incorrect words, spelling, and punctuation that were not noted in checking the note before signing. Code Visit Inpatient E&M: 65576 Subs Hosp L2
[2019-01-29] MEDS: Magnesium Oxide 400 MG Tablet PO (11:54)
--- NOTE | 2019-01-29 15:35 | PN_ITS ---
Patient Problems: Active and Suspected Problems (Last Reviewed 01/26/19 @ 23:43 by Josue Obregon DO) Pleural effusion (Acute) (HFpEF) heart failure with preserved ejection fraction (Acute) Subjective: The patient is an 83-year-old male with a past medical history of nonrheumatic mitral insufficiency, tricuspid insufficiency and aortic stenosis, secondary pulmonary hypertension, chronic anticoagulation, hypertension, chronic renal failure stage III, anxiety disorder, osteoarthritis, gout, mild dementia, rheumatoid arthritis, diabetes mellitus type 2, prostate cancer (status post radiotherapy), paroxysmal atrial fibrillation and anemia of chronic disease who presented to the emergency department at [facility] on 01/26/2019 complaining of increasing shortness of breath over the preceding week. He had been seen by his primary care physician and given Omnicef for bronchitis. Chest x-ray showed a very large right pleural effusion. He had previously had thoracentesis in November 2008 18 and approximately 500 cc of fluid was removed but none was sent for diagnosis. Coumadin is on hold for planned thoracentesis 01/30. All events of the past 24 hours been reviewed. Afebrile since admission. Vital signs are stable. He is 96% saturated on a 3 L nasal cannula with a respiratory rate of 16. Fluid balance since admission is +870. INR today is 1.4. Hemoglobin is stable at 11.7. Platelets are 149,000 and the white blood cell count is within normal limits. Electrolytes are normal and the BUN is 30 with a creatinine of 1.8, down from 2.04 at admission. No complaints today. Denies CP or SOB....thinks his breathing is improving. Objective: PHYSICAL EXAM: GENERAL: alert, oriented X 2, Cooperative, NAD, looks at his to answer the questions he does not remember the answer to, Please ORAL: moist mucosa, no mucosal lesions NECK: less JVD today, supple, trachea midline LUNGS: Not tachypneic at rest today, no accessory muscle use, rare expiratory wheeze, there is better air exchange in the upper right posterior lung today. No rales, still with dullness to percussion and some egophony in the right lower lung posteriorly. Essentially unchanged from yesterday. CXR with BL effusions R>L HEART: irreg, Normal S1 and S2, no rub, no gallop TELEMETRY: AF with RVR ...if you look at the VS's there is no HR > 100? ABDOMEN: soft, NT, ND, BS present, no guarding with palpation EXTREMITIES: 1+-2+ pretibial edema, no cyanosis, no calf tenderness SKIN: No rashes, no breakdown NEUROLOGIC: no focal neurologic deficits PSYCH: appropriate, normal affect, pleasant - Physical Exam Vital Signs Temp Pulse Resp BP Pulse Ox 98.0 F 75 16 100/59 L 96 01/29/19 14:00 01/29/19 14:00 01/29/19 14:00 01/29/19 14:00 01/29/19 14:00 Oxygen Flow Rate (L/min) 3 Oxygen Delivery Method Nasal Cannula Weight: 178 lb 5.663 oz Body Mass Index (BMI) 29.3 Intake and Output for Last 24 Hours 01/27/19 01/28/19 01/29/19 23:59 23:59 23:59 Intake Total 880 / 880 1090 / 1090 500 / 500 Output Total 525 / 525 800 / 800 Balance 355 / 355 1090 / 1090 -300 / -300 Microbiology Past 72 Hours 01/27/19 15:15 Respiratory Panel (PCR) - Final Mucosa - Nose Rhinovirus 01/26/19 21:00 Influenza Types A,B Direct FA (NUZHAT) - Final Mucosa - Nasopharyngeal Laboratory Tests Past 24 Hrs 01/29/19 01/29/19 05:05 05:05 PT 17.4 H INR 1.4 Sodium 138 Potassium 3.9 Chloride 105 Carbon Dioxide 26.0 Anion Gap 7 BUN 30 H Creatinine 1.80 H Estim Creat Clear Calc 27.05 Est GFR (MDRD) Af Amer 47 L Est GFR (MDRD) Non-Af 39 L BUN/Creatinine Ratio 16.7 Glucose 101 Calcium 8.4 L Magnesium 2.2 Medical Necessity - Tobacco Use Smoking Status: Never smoker Assessment/Plan All Active Problems (Last Reviewed 01/26/19 @ 23:43 by Josue Obregon DO) Community acquired bacterial pneumonia (Acute) Atrial fibrillation (Acute) Pleural effusion (Acute) Renal insufficiency (Acute) Pleural effusion (Acute) (HFpEF) heart failure with preserved ejection fraction (Acute) Chronic diastolic (congestive) heart failure (Acute) Chest pain (Resolved) Dehydration (Resolved) Hypomagnesemia (Resolved) Impressions 1. Acute respiratory insufficiency with hypoxemia due to a very large R pleural effusion 2, Large R pleural effusion -I am suspicious that the pleural effusion is in fact not due to diastolic congestive heart failure because the left lung today is completely clear and he has had minimal output with diuretics. 3. moderate to severe aortic stenosis 4. Pulmonary hypertension-likely secondary to aortic stenosis 5. Mild biatrial enlargement 6. Moderate TR 7. Chronic anticoagulation with warfarin-on hold for thoracentesis 8. History of prostate cancer treated with radiotherapy 9. Paroxysmal atrial fibrillation with RVR 10. Chronic renal failure stage III 11. Diabetes mellitus type 2 12. Hypertension 13. Osteoarthritis -H&P states he has rheumatoid arthritis but the patient denies and states he has only osteoarthritis. He has never been on any medication for treating rheumatoid arthritis. 14. Gout 15. Suspected mild dementia 16. Rhinovirus Still having AF with RVR which I am sure is contributing to the acute on chronic diastolic CHF. Can not push the Coreg any more....BP is only 100/59 now. He is on Amiodarone 100 daily and the TSH and T4 were normal in June 2018. Start Amiodarone 0.5 mg/min. Recheck the PT and PTT in the AM 1 dose of Lovenox 1 mg/kg now and then DC. Will need to restart Lovenox and Warfarin after the thoracentesis Appreciate Dr. Guerra's help Add a potassium supplement and keep the K 4 or greater Mag is 2.2 today. Code Visit Inpatient E&M: 04699 Subs Hosp L3
[2019-01-29] MEDS: Enoxaparin 80 MG/0.8 ML Syringe SC (16:25)
[2019-01-29] MEDS: Loratadine 10 MG Tablet PO (16:25)
[2019-01-29] MEDS: Dicyclomine 10 MG Capsule PO (16:25)
[2019-01-29] MEDS: 0.9% NaCl Peripheral Flush Adult/Peds IV ×3 (19:10→22:26)
[2019-01-29] MEDS: Aspirin 81 MG TAB.CHEW PO (21:21)
[2019-01-29] MEDS: Furosemide 100 MG/10 ML Vial 60 MG IV (21:22)
[2019-01-29] MEDS: amLODIPine 5 MG Tablet PO (21:28)
[2019-01-30] VITALS (28 sets, daily range): BP systolic 100–124; BP diastolic 53–94; PULSE 71–108; RESP 13–25; TEMP 36.8–37.2; O2SAT 92–99
[2019-01-30 06:05] LABS: Anion Gap 11 (5-15); BUN 33 mg/dL (7-18); BUN/Creat Ratio 18.3 RATIO (10-20); Calcium,Total 8.1 mg/dL (8.5-10.1); Chloride 106 mmol/L (98-107); EST Glomerular Filtration Rate 39 mL/min (>60); Est Glom Filt Rate - Afr Amer 47 mL/min (>60); Estimated Creatinine Clearance 27.05 ml/min; Glucose 107 mg/dL (74-106); Magnesium 2.1 mg/dL (1.6-2.6); Potassium 4.3 mmol/L (3.5-5.1); Sodium Level 140 mmol/L (136-145)
[2019-01-30] MEDS: 0.9% NaCl Peripheral Flush Adult/Peds IV (06:07)
[2019-01-30] MEDS: Furosemide 100 MG/10 ML Vial 60 MG IV (06:07)
[2019-01-30 06:23] LABS: International Normalized Ratio 1.3; Partial Thromboplast Time 33.5 Seconds (24.1-36.2); Prothrombin Time (Protime)PT. 16.1 SECONDS (11.7-14.9)
--- NOTE | 2019-01-30 07:12 | PN_ITS ---
Patient Problems: Active and Suspected Problems (Last Reviewed 01/26/19 @ 23:43 by Josue Obregon DO) Pleural effusion (Acute) (HFpEF) heart failure with preserved ejection fraction (Acute) Subjective: The patient was seen and examined at the bedside this morning. Events from the last 24 hours have been reviewed. The patient is currently afebrile, hemodynamically stable and maintaining appropriate oxygen saturations on 3 L/min via nasal cannula. There are tentative plans for the patient to undergo an ultrasound-guided thoracentesis today. INR is within normal limits this morning at 1.3. Creatinine is stable at 1.8. Objective: The patient's most recent lab work, culture data and imaging studies have all been personally reviewed. Surface echocardiogram dated November 2018 revealed normal LV size and function with an ejection fraction of 60%. The patient had a mildly dilated RV in the right ventricular systolic pressure estimated to be 39 mmHg. Rapid influenza screen was negative. Respiratory viral panel was positive for rhinovirus. - Physical Exam General: Alert, Cooperative, No apparent distress HEENT: Atraumatic, PERRLA, Normocephalic Oral: No Gingival or Mucosal Lesions/ Ulcerations Neck: Supple, No Nodes, Trachea Midline Lungs: No wheeze, Diminished, - - Continue dullness to percussion in the right lung base. Cardiovascular: Normal S1, Normal S2, No murmurs, Irregular Rate Abdomen: Bowel Sounds Present, Soft, Non Tender Extremities: No clubbing, No cyanosis, Edema Skin: - - No significant change from previous. Musculoskeletal: No Tenderness to Palpation of Joints or Extremities Lymphatic: No Cervical, Supraclavicular, or Inguinal Adenopathy Neurological: Cranial nerves II-XII grossly intact, Neuro grossly intact Psych/Mental Status: Normal Affect, Appropriate Vital Signs Temp Pulse Resp BP Pulse Ox 36.9 C 86 15 117/83 H 95 01/30/19 05:00 01/30/19 06:00 01/30/19 06:00 01/30/19 06:00 01/30/19 06:05 Oxygen Flow Rate (L/min) 3 Oxygen Delivery Method Nasal Cannula Weight: 175 lb 4.28 oz Body Mass Index (BMI) 29.3 Intake and Output for Last 24 Hours 01/28/19 01/29/19 01/30/19 23:59 23:59 23:59 Intake Total 1090 / 1090 1502.6 / 1502.6 96.7 / 96.7 Output Total 1950 / 1950 500 / 500 Balance 1090 / 1090 -447.4 / -447.4 -403.3 / -403.3 Microbiology Past 72 Hours 01/27/19 15:15 Respiratory Panel (PCR) - Final Mucosa - Nose Rhinovirus Laboratory Tests Past 24 Hrs 01/30/19 01/30/19 01/30/19 05:10 05:10 05:10 PT 16.1 H INR 1.3 APTT 33.5 Sodium 140 Potassium 4.3 Chloride 106 Carbon Dioxide 23.0 Anion Gap 11 BUN 33 H Creatinine 1.80 H Estim Creat Clear Calc 27.05 Est GFR (MDRD) Af Amer 47 L Est GFR (MDRD) Non-Af 39 L BUN/Creatinine Ratio 18.3 Glucose 107 H Calcium 8.1 L Magnesium 2.1 Lactate Dehydrogenase Pending Total Protein Pending Clinical Impression(s) from Imaging Studies Chest X-Ray 01/26/19 21:05 IMPRESSION: Accumulation of large right pleural effusion and presumed collapse of much of the underlying right lung. There is residual aeration at the right apex. Infection is not excluded. Electronically Signed: Alex Woo, at 22:20 EST , Service support , Chest X-Ray 01/29/19 09:20 IMPRESSION: Mild improvement of large right pleural effusion. Possible small left effusion. Underlying parenchymal disease is not excluded. Electronically Signed: Ozzie Nguyen, at 10:47 EST Tel , Service support , Medical Necessity - Tobacco Use Smoking Status: Never smoker Assessment/Plan All Active Problems (Last Reviewed 01/26/19 @ 23:43 by Josue Obregon DO) Community acquired bacterial pneumonia (Acute) Atrial fibrillation (Acute) Pleural effusion (Acute) Renal insufficiency (Acute) Pleural effusion (Acute) (HFpEF) heart failure with preserved ejection fraction (Acute) Chronic diastolic (congestive) heart failure (Acute) Chest pain (Resolved) Dehydration (Resolved) Hypomagnesemia (Resolved) RECOMMENDATIONS: 1. Resume Coumadin once thoracentesis is complete. 2. Proceed with ultrasound-guided thoracentesis. Send for pleural fluid studies, as ordered. 3. Continue with gentle diuresis as tolerated. 4. Wean supplemental oxygen to maintain saturations at or above 90%. Encourage incentive spirometer use. IMPRESSIONS: 1. Acute hypoxemic respiratory insufficiency due to large right pleural effusion and rhinovirus URI The patient was previously admitted to the hospital in November under similar circumstances and underwent an ultrasound-guided thoracentesis. However, no pleural fluid studies were ever sent to that time. Therefore, the etiology for the patient's current pleural effusion is unknown. While it was previously felt that the patient's pleural effusion was related to underlying heart failure, one would also have to consider underlying infectious, inflammatory or malignant etiologies. I agree with holding the patient's Coumadin for now. Proceed with obtaining ultrasound-guided thoracentesis. Pleural fluid to be sent for studies, as ordered, along with pleural fluid cytology. Continue gentle diuresis as ordered. Wean supplemental oxygen to maintain saturations at or above 90%. 2. Heart failure with preserved ejection fraction/atrial fibrillation/valvular heart disease/chronic anticoagulation Continue outpatient medical regimen and gentle diuresis as tolerated. 3. Obstructive sleep apnea Unknown home settings, as the patient routinely follows with Dr. Kaur. Records from his office can always be obtained. However, in the interim, the patient can be placed on BiPAP 12/6 nightly. 4. GERD/BPH/hypertension/hyperlipidemia/advanced age Complicates care, management, recovery and prognosis. Likely okay to continue home medications. This note was generated with [employer] dictation software. It may contain incorrect words, spelling, and punctuation that were not noted in checking the note before signing. Code Visit Inpatient E&M: 74740 Subs Hosp L2
[2019-01-30 07:20] LABS: ALB/GLOB Ratio 0.8 RATIO (0.9-2.4); Globulin 3.8 g/dL (2.2-4.2); LDH 223 U/L (87-241); Protein, Total 6.9 g/dL (6.4-8.2)
--- NOTE | 2019-01-30 08:00 | US_ITS ---
PROCEDURE: ULTRASOUND GUIDED THORACENTESIS. DATE: January 30, 2019. INDICATION: Male, 83 years old. Right pleural effusion. PHYSICIAN: Justin Castro M.D. PROCEDURE: The risks, benefits, and alternatives to the procedure were explained to the patient. The specific risks of bleeding, infection, and pneumothorax requiring chest tube insertion were discussed and accepted. Written informed consent was obtained. Ultrasonographic evaluation of the right lower pleural space was carried out. An adequate pocket was identified. The patient was placed in the sitting, upright position. The overlying skin was prepped and draped in sterile fashion. 1% lidocaine was administered subcutaneously for local anesthesia. Under ultrasound guidance, a 5 Sinhala thoracentesis needle/catheter system was advanced into the right posterior lower pleural fluid collection. Approximately 1700 mL of crescencio-colored fluid was drained. The catheter was removed, and a sterile dressing was applied. The patient tolerated the procedure well. A chest x-ray was ordered. US/Thoracentesis W US IMPRESSION: Ultrasound-guided right thoracentesis. Electronically Signed: Justin Castro, at 14:40 EST , Service support ,
[2019-01-30] MEDS: Lisinopril 20 MG Tablet PO (10:18)
[2019-01-30] MEDS: Calcium (Elemental) 500 MG Tablet PO (10:18)
[2019-01-30] MEDS: Carvedilol 6.25 MG Tablet PO ×2 (10:19→21:10)
[2019-01-30] MEDS: Pantoprazole Sodium 40 MG Tablet PO (10:20)
[2019-01-30] MEDS: Cyanocobalamin 500 MCG Tablet 1000 MCG PO (10:20)
[2019-01-30] MEDS: Tamsulosin HCl 0.4 MG Capsule PO (10:21)
[2019-01-30] MEDS: Ferrous Sulfate 325 MG Tablet PO (10:21)
[2019-01-30] MEDS: Galantamine Hydrobromide 4 MG Tablet PO ×2 (10:21→21:10)
[2019-01-30 11:05] LABS: ANTINUCLEAR ANTIBODIES DIRECT Negative (Negative)
--- NOTE | 2019-01-30 13:31 | RAD_ITS ---
STUDY: X-RAY CHEST REASON FOR EXAM: Male, 83 years old. Status post right thoracentesis. TECHNIQUE: AP inspiration and expiration views. COMPARISON: Comparison is made with prior examination dated January 29, 2019. FINDINGS: The patient is status post right thoracentesis. Small residual right pleural effusion with right basilar atelectasis. There is no evidence for pneumothorax. Status post right shoulder replacement. RAD/Chest Insp/Exp 2 View IMPRESSION: Status post right thoracentesis. There is no evidence of pneumothorax. Small residual pleural parenchymal changes at the right lung base. Electronically Signed: Justin Castro, at 9:54 EST , Service support ,
[2019-01-30] MEDS: Ascorbic Acid 500 MG Tablet 1000 MG PO (14:29)
[2019-01-30] MEDS: Magnesium Oxide 400 MG Tablet PO (14:29)
--- NOTE | 2019-01-30 16:46 | CHAPLAIN ---
Type of Pastoral Visit _x__ Initial Visit ___ Follow-up Visit ___ On-call Visit ___ General Patient Visit ___ Spiritual Assessment ___ Family Conference ___ Bereavement ___ Rapid Response ___ Code Blue ___ Other (describe below) Pastoral Care Referral From _x__ Patient ___ Family ___ Nurse ___ Physician ___ Information Services Manager ___ Color Control Supervisor ___ Other (describe below) Sacrament/Intervention _x__ Active listening ___ Anointing ___ Moravian ___ Bereavement ___ Communion ___ Leida exploration ___ ___ Life review _x__ Prayer ___ Reconciliation ___ Sacrament of Sick ___ Supportive presence ___ Wedding ___ Other (describe below) Pastoral Comments
--- NOTE | 2019-01-30 17:48 | PCM.PN.HOSP ---
Patient Problems: Active and Suspected Problems (Last Reviewed 01/26/19 @ 23:43 by Josue Obregon DO) Pleural effusion (Acute) (HFpEF) heart failure with preserved ejection fraction (Acute) Subjective: Feels better than when he came in though still having shortness of breath, though denies any chest pain Vitals/I&O's: Vital Signs Temp Pulse Resp BP Pulse Ox 98.7 F 85 16 111/67 99 01/30/19 15:00 01/30/19 15:33 01/30/19 15:00 01/30/19 15:00 01/30/19 15:00 Oxygen Flow Rate (L/min) [3] 2 Oxygen Flow Rate (L/min) [2] 2 Oxygen Flow Rate (L/min) [1 ( 2 Initial Baseline)] Oxygen Flow Rate (L/min) 2 Oxygen Delivery Method [3] Nasal Cannula Oxygen Delivery Method [2] Nasal Cannula Oxygen Delivery Method [1 ( Nasal Cannula Initial Baseline)] Oxygen Delivery Method Nasal Cannula Weight: 175 lb 4.28 oz Body Mass Index (BMI) 29.3 Intake and Output for Last 24 Hours 01/28/19 01/29/19 01/30/19 23:59 23:59 23:59 Intake Total 1090 / 1090 1502.6 / 1502.6 216.7 / 216.7 Output Total 1950 / 1950 1200 / 1200 Balance 1090 / 1090 -447.4 / -447.4 -983.3 / -983.3 General: Alert, Oriented x3, Cooperative, No apparent distress HEENT: Atraumatic, PERRLA, EOMI, Normocephalic Oral: Moist Mucosa Neck: Supple, No JVD, Trachea Midline Lungs: Clear to auscultation, Normal air movement, No rhonchi, No wheeze, No rales, Diminished - Right base Cardiovascular: Regular rate, Normal S1, Normal S2, No murmurs, - - Regular rhythm Abdomen: Soft, Non Tender, Non-Distended, No Hepato-splenomegaly Extremities: Capillary Refill Less than 3 Seconds, Edema - 1+ edema bilateral Skin: No rashes, No breakdown Neurological: Neuro grossly intact, Sensory exam intact to light touch and pain Psych/Mental Status: Normal Affect, Appropriate Microbiology Past 72 Hours 01/27/19 15:15 Mucosa - Nose Respiratory Panel (PCR) - Final Rhinovirus Laboratory Results 01/27/19 13:25: SHANON Screen Negative 01/30/19 05:10: Lactate Dehydrogenase 223, Total Protein 6.9, Globulin 3.8, Albumin/Globulin Ratio 0.8 L 01/30/19 05:10: PT 16.1 H, INR 1.3, APTT 33.5 01/30/19 05:10: Sodium 140, Potassium 4.3, Chloride 106, Carbon Dioxide 23.0, Anion Gap 11, BUN 33 H, Creatinine 1.80 H, Estim Creat Clear Calc 27.05, Est GFR (MDRD) Af Amer 47 L, Est GFR (MDRD) Non-Af 39 L, BUN/Creatinine Ratio 18.3, Glucose 107 H, Calcium 8.1 L, Magnesium 2.1 Current Medications Acetaminophen (Tylenol) 650 mg PO Q6H PRN PRN PRN Reason: Mild Pain (1-3)/Temp > 100.7 F Amiodarone HCl (Cordarone) 200 mg PO QHS [facility] Amlodipine Besylate (Norvasc) 5 mg PO QHS [facility] Last Admin: 01/29/19 21:28 Dose: 5 mg Ascorbic Acid (Vitamin C) 1,000 mg PO LUNCH [facility] Last Admin: 01/30/19 14:29 Dose: 1,000 mg Aspirin (Aspirin, Baby) 81 mg PO QHS [facility] Last Admin: 01/29/19 21:21 Dose: 81 mg Calcium Carbonate ([facility]ofer [facility]) [facility] Last Admin: 01/30/19 10:18 Dose: 500 mg Carvedilol (Coreg) 6.25 mg PO BID [facility] Last Admin: 01/30/19 10:19 Dose: 6.25 mg Cholecalciferol (Vitamin D) 1,000 unit PO DAILY [facility] Last Admin: 01/30/19 10:21 Dose: 1,000 unit Cyanocobalamin (Vitamin B12) 1,000 mcg PO DAILY@0800 [facility] Last Admin: 01/30/19 10:20 Dose: 1,000 mcg Dicyclomine HCl (Bentyl) 10 mg PO DINNER [facility] Last Admin: 01/29/19 16:25 Dose: 10 mg Ferrous Sulfate (Ferrous Sulfate) 325 mg PO DAILYCM [facility] Last Admin: 01/30/19 10:21 Dose: 325 mg Furosemide (Lasix) 60 mg IV Q8 [facility] Last Admin: 01/30/19 14:54 Dose: Not Given Galantamine Hydrobromide (Razadyne) 4 mg PO BID [facility] Last Admin: 01/30/19 10:21 Dose: 4 mg Lisinopril (Zestril) 20 mg PO DAILY [facility] Last Admin: 01/30/19 10:18 Dose: 20 mg Loratadine (Claritin) 10 mg PO DINNER [facility] Last Admin: 01/29/19 16:25 Dose: 10 mg Magnesium Hydroxide (Milk Of Magnesia) 30 ml PO DAILY PRN PRN Reason: Constipation Magnesium Oxide (Mag-Ox 400) 400 mg PO LUNCH [facility] Last Admin: 01/30/19 14:29 Dose: 400 mg Ondansetron HCl (Zofran) 4 mg IV Q8H PRN PRN PRN Reason: NAUSEA Pantoprazole Sodium (Protonix) 40 mg PO DAILY [facility] Last Admin: 01/30/19 10:20 Dose: 40 mg Potassium Chloride (K-Dur) 20 meq PO DAILYCM [facility] Last Admin: 01/30/19 10:25 Dose: 20 meq Sodium Chloride () 5 - 15 ml IV UD PRN PRN Reason: SALINE FLUSH Last Admin: 01/30/19 06:07 Dose: 15 ml Tamsulosin HCl (Flomax) 0.4 mg PO DAILY [facility] Last Admin: 01/30/19 10:21 Dose: 0.4 mg Medical Necessity - Tobacco Use Smoking Status: Never smoker Assessment/Plan All Active Problems (Last Reviewed 01/26/19 @ 23:43 by Josue Obregon DO) Community acquired bacterial pneumonia (Acute) Atrial fibrillation (Acute) Pleural effusion (Acute) Renal insufficiency (Acute) Pleural effusion (Acute) (HFpEF) heart failure with preserved ejection fraction (Acute) Chronic diastolic (congestive) heart failure (Acute) Chest pain (Resolved) Dehydration (Resolved) Hypomagnesemia (Resolved) 1. Acute respiratory insufficiency with hypoxia secondary to large right pleural effusion -Thoracentesis today drained 1700 cc of fluid -Fluid labs are pending -Hold Lasix dose today and attempt to wean off of oxygen 2. A. fib/pulmonary hypertension/moderate to severe aortic stenosis/HTN -Echo with an EF of 60%, however diastolic function could not be assessed secondary to his A. fib -Can resume Coumadin tomorrow evening -RSVP at 39 mmHg -We will discontinue amiodarone drip and increase his nightly dose to 200 mg -Continue with aspirin, Coreg, Norvasc, lisinopril 3. DM 2/CKD 3 -Creatinine is at baseline 1.8 -BG stable, continue with Accu-Cheks. Appears to be diet controlled 4. GERD -Continue with PPI -Stable 5. Dementia -Stable no -Continue with galantamine 6. BPH -Stable -Continue with Flomax DVT: SCDs Code Visit Inpatient E&M: 40248 Subs Hosp L2
[2019-01-30] MEDS: Loratadine 10 MG Tablet PO (18:00)
[2019-01-30] MEDS: Dicyclomine 10 MG Capsule PO (18:00)
--- NOTE | 2019-01-30 18:00 | PN_ITS ---
Patient Problems: Active and Suspected Problems (Last Reviewed 01/26/19 @ 23:43 by Josue Obregon DO) Pleural effusion (Acute) (HFpEF) heart failure with preserved ejection fraction (Acute) Subjective: Feels better than when he came in though still having shortness of breath, though denies any chest pain Vitals/I&O's: Vital Signs Temp Pulse Resp BP Pulse Ox 98.7 F 85 16 111/67 99 01/30/19 15:00 01/30/19 15:33 01/30/19 15:00 01/30/19 15:00 01/30/19 15:00 Oxygen Flow Rate (L/min) [3] 2 Oxygen Flow Rate (L/min) [2] 2 Oxygen Flow Rate (L/min) [1 ( 2 Initial Baseline)] Oxygen Flow Rate (L/min) 2 Oxygen Delivery Method [3] Nasal Cannula Oxygen Delivery Method [2] Nasal Cannula Oxygen Delivery Method [1 ( Nasal Cannula Initial Baseline)] Oxygen Delivery Method Nasal Cannula Weight: 175 lb 4.28 oz Body Mass Index (BMI) 29.3 Intake and Output for Last 24 Hours 01/28/19 01/29/19 01/30/19 23:59 23:59 23:59 Intake Total 1090 / 1090 1502.6 / 1502.6 216.7 / 216.7 Output Total 1950 / 1950 1200 / 1200 Balance 1090 / 1090 -447.4 / -447.4 -983.3 / -983.3 General: Alert, Oriented x3, Cooperative, No apparent distress HEENT: Atraumatic, PERRLA, EOMI, Normocephalic Oral: Moist Mucosa Neck: Supple, No JVD, Trachea Midline Lungs: Clear to auscultation, Normal air movement, No rhonchi, No wheeze, No rales, Diminished - Right base Cardiovascular: Regular rate, Normal S1, Normal S2, No murmurs, - - Regular rhythm Abdomen: Soft, Non Tender, Non-Distended, No Hepato-splenomegaly Extremities: Capillary Refill Less than 3 Seconds, Edema - 1+ edema bilateral Skin: No rashes, No breakdown Neurological: Neuro grossly intact, Sensory exam intact to light touch and pain Psych/Mental Status: Normal Affect, Appropriate Microbiology Past 72 Hours 01/27/19 15:15 Mucosa - Nose Respiratory Panel (PCR) - Final Rhinovirus Laboratory Results 01/27/19 13:25: SHANON Screen Negative 01/30/19 05:10: Lactate Dehydrogenase 223, Total Protein 6.9, Globulin 3.8, Albumin/Globulin Ratio 0.8 L 01/30/19 05:10: PT 16.1 H, INR 1.3, APTT 33.5 01/30/19 05:10: Sodium 140, Potassium 4.3, Chloride 106, Carbon Dioxide 23.0, Anion Gap 11, BUN 33 H, Creatinine 1.80 H, Estim Creat Clear Calc 27.05, Est GFR (MDRD) Af Amer 47 L, Est GFR (MDRD) Non-Af 39 L, BUN/Creatinine Ratio 18.3, Gluc ose 107 H, Calcium 8.1 L, Magnesium 2.1 Current Medications Acetaminophen (Tylenol) 650 mg PO Q6H PRN PRN PRN Reason: Mild Pain (1-3)/Temp > 100.7 F Amiodarone HCl (Cordarone) 200 mg PO QHS [facility] Amlodipine Besylate (Norvasc) 5 mg PO QHS [facility] Last Admin: 01/29/19 21:28 Dose: 5 mg Ascorbic Acid (Vitamin C) 1,000 mg PO LUNCH [facility] Last Admin: 01/30/19 14:29 Dose: 1,000 mg Aspirin (Aspirin, Baby) 81 mg PO QHS [facility] Last Admin: 01/29/19 21:21 Dose: 81 mg [facility]cium Carbon[facility] ([facility]ofer [facility]) [facility] Last Admin: 01/30/19 10:18 Dose: 500 mg Carvedilol (Coreg) 6.25 mg PO BID [facility] Last Admin: 01/30/19 10:19 Dose: 6.25 mg Cholecalciferol (Vitamin D) 1,000 unit PO DAILY [facility] Last Admin: 01/30/19 10:21 Dose: 1,000 unit Cyanocobalamin (Vitamin B12) 1,000 mcg PO DAILY@0800 [facility] Last Admin: 01/30/19 10:20 Dose: 1,000 mcg Dicyclomine HCl (Bentyl) 10 mg PO DINNER [facility] Last Admin: 01/29/19 16:25 Dose: 10 mg Ferrous Sulfate ([facility]ous Sulfate) [facility] Last Admin: 01/30/19 10:21 Dose: 325 mg Furosemide (Lasix) 60 mg IV Q8 [facility] Last Admin: 01/30/19 14:54 Dose: Not Given Galantamine Hydrobromide (Razadyne) 4 mg PO BID [facility] Last Admin: 01/30/19 10:21 Dose: 4 mg Lisinopril (Zestril) 20 mg PO DAILY [facility] Last Admin: 01/30/19 10:18 Dose: 20 mg Loratadine (Claritin) 10 mg PO DINNER [facility] Last Admin: 01/29/19 16:25 Dose: 10 mg Magnesium Hydroxide (Milk Of Magnesia) 30 ml PO DAILY PRN PRN Reason: Constipation Magnesium Oxide (Mag-Ox 400) 400 mg PO LUNCH [facility] Last Admin: 01/30/19 14:29 Dose: 400 mg Ondansetron HCl (Zofran) 4 mg IV Q8H PRN PRN PRN Reason: NAUSEA Pantoprazole Sodium (Protonix) 40 mg PO DAILY [facility] Last Admin: 01/30/19 10:20 Dose: 40 mg Potassium Chloride (K-Dur) 20 meq PO DAILYCM [facility] Last Admin: 01/30/19 10:25 Dose: 20 meq Sodium Chloride () 5 - 15 ml IV UD PRN PRN Reason: SALINE FLUSH Last Admin: 01/30/19 06:07 Dose: 15 ml Tamsulosin HCl (Flomax) 0.4 mg PO DAILY [facility] Last Admin: 01/30/19 10:21 Dose: 0.4 mg Medical Necessity - Tobacco Use Smoking Status: Never smoker Assessment/Plan All Active Problems (Last Reviewed 01/26/19 @ 23:43 by Josue Obregon DO) Community acquired bacterial pneumonia (Acute) Atrial fibrillation (Acute) Pleural effusion (Acute) Renal insufficiency (Acute) Pleural effusion (Acute) (HFpEF) heart failure with preserved ejection fraction (Acute) Chronic diastolic (congestive) heart failure (Acute) Chest pain (Resolved) Dehydration (Resolved) Hypomagnesemia (Resolved) 1. Acute respiratory insufficiency with hypoxia secondary to large right pleural effusion -Thoracentesis today drained 1700 cc of fluid -Fluid labs are pending -Hold Lasix dose today and attempt to wean off of oxygen 2. A. fib/pulmonary hypertension/moderate to severe aortic stenosis/HTN -Echo with an EF of 60%, however diastolic function could not be assessed secondary to his A. fib -Can resume Coumadin tomorrow evening -RSVP at 39 mmHg -We will discontinue amiodarone drip and increase his nightly dose to 200 mg -Continue with aspirin, Coreg, Norvasc, lisinopril 3. DM 2/CKD 3 -Creatinine is at baseline 1.8 -BG stable, continue with Accu-Cheks. Appears to be diet controlled 4. GERD -Continue with PPI -Stable 5. Dementia -Stable no -Continue with galantamine 6. BPH -Stable -Continue with Flomax DVT: SCDs Code Visit Inpatient E&M: 88913 Subs Hosp L2
[2019-01-30] MEDS: amLODIPine 5 MG Tablet PO (21:10)
[2019-01-30] MEDS: Aspirin 81 MG TAB.CHEW PO (21:10)
[2019-01-30] MEDS: Amiodarone 200 MG Tablet PO (21:10)
[2019-01-31] VITALS (8 sets, daily range): BP systolic 106–118; BP diastolic 57–73; PULSE 75–88; RESP 16–18; TEMP 36.1–36.7; O2SAT 91–99
[2019-01-31 06:10] LABS: International Normalized Ratio 1.4; Prothrombin Time (Protime)PT. 16.5 SECONDS (11.7-14.9)
[2019-01-31 06:25] LABS: Absolute Lymphocyte Count 0.97 X10^3/ul (0.83-4.51); Absolute Neutrophil Count 4.1 X10^3/uL (2.0-7.7); Basophil# 0.07 X10^3/uL; Basophil% 1.1 % (0-1); Eosinophil# 0.62 X10^3/uL; Eosinophils% 9.8 % (0-5); Hematocrit 35.1 % (40-54); Hemoglobin 10.9 g/dl (13.0-16.5); Lymphocyte # 0.97 X10^3/ul (4.0); Lymphocyte % 15.3 % (19-41); Mean Corp Hgb Conc 31.1 g/gl (32-36); Mean Corpuscular Hgb 26.3 pg (27.0-32.0); Mean Corpuscular Volume 84.8 fL (80-94); Monocyte# 0.54 X10^3/uL; Monocyte% 8.5 % (0-10); Neutrophil # 4.11 X10^3/uL (2.7-7.7); Platelet Count 128 K/mm3 (150-450); RBC Distribution Width CV 19.9 % (11.6-14.6); Red Blood Count 4.14 M/mm3 (4.6-6.2); White Blood Count 6.3 K/mm3 (4.4-11.0)
[2019-01-31 06:28] LABS: POSITIVE COUNT NO; POSITIVE DIFFERENTIAL NO; POSITIVE MORPHOLOGY NO
[2019-01-31 06:31] LABS: Anion Gap 8 (5-15); BUN 28 mg/dL (7-18); Calcium,Total 8.4 mg/dL (8.5-10.1); Chloride 106 mmol/L (98-107); Creatinine, Serum 1.75 mg/dL (0.70-1.30); EST Glomerular Filtration Rate 40 mL/min (>60); Est Glom Filt Rate - Afr Amer 48 mL/min (>60); Estimated Creatinine Clearance 27.82 ml/min; Glucose 103 mg/dL (74-106); Potassium 4.2 mmol/L (3.5-5.1); Sodium Level 142 mmol/L (136-145)
--- NOTE | 2019-01-31 08:05 | PCM.PROGNOTE ---
Patient Problems: Active and Suspected Problems (Last Reviewed 01/26/19 @ 23:43 by Josue Obregon DO) Pleural effusion (Acute) (HFpEF) heart failure with preserved ejection fraction (Acute) Subjective: The patient was seen and examined at the bedside this morning. Events from the last 24 hours have been reviewed. The patient is currently afebrile, hemodynamically stable and maintaining appropriate oxygen saturations on 2 L/min via nasal cannula. The patient underwent successful ultrasound-guided thoracentesis yesterday with 1.7 L of fluid removed from his right hemithorax. Creatinine remains stable at 1.75 this morning. It does appear that once again despite there being orders for pleural fluid studies, none of the patient's pleural fluid was sent to the lab for analysis. Objective: The patient's most recent lab work, culture data and imaging studies have all been personally reviewed. Surface echocardiogram dated November 2018 revealed normal LV size and function with an ejection fraction of 60%. The patient had a mildly dilated RV in the right ventricular systolic pressure estimated to be 39 mmHg. Rapid influenza screen was negative. Respiratory viral panel was positive for rhinovirus. - Physical Exam General: Alert, No apparent distress HEENT: Atraumatic, PERRLA, Normocephalic Oral: Moist Mucosa Neck: Supple, No Nodes, Trachea Midline Lungs: - - Improved air movement throughout the right hemithorax. Cardiovascular: Normal S1, Normal S2, No murmurs, Irregular Rate Abdomen: Bowel Sounds Present, Soft, Non Tender Extremities: No clubbing, No cyanosis, Edema Skin: - - No significant change from previous. Musculoskeletal: No Tenderness to Palpation of Joints or Extremities Lymphatic: No Cervical, Supraclavicular, or Inguinal Adenopathy Neurological: Neuro grossly intact Psych/Mental Status: Normal Affect, Appropriate Vital Signs Temp Pulse Resp BP Pulse Ox 36.7 C 77 18 106/57 L 94 01/31/19 03:10 01/31/19 07:12 01/31/19 03:10 01/31/19 03:10 01/31/19 03:10 Oxygen Flow Rate (L/min) [3] 2 Oxygen Flow Rate (L/min) [2] 2 Oxygen Flow Rate (L/min) [1 ( 2 Initial Baseline)] Oxygen Flow Rate (L/min) 2 Oxygen Delivery Method [3] Nasal Cannula Oxygen Delivery Method [2] Nasal Cannula Oxygen Delivery Method [1 ( Nasal Cannula Initial Baseline)] Oxygen Delivery Method Nasal Cannula Weight: 168 lb 6.931 oz Body Mass Index (BMI) 29.3 Intake and Output for Last 24 Hours 01/29/19 01/30/19 01/31/19 23:59 23:59 23:59 Intake Total 1502.6 / 1502.6 336.7 / 336.7 Output Total 1950 / 1950 1450 / 1450 650 / 650 Balance -447.4 / -447.4 -1113.3 / -1113.3 -650 / -650 Microbiology Past 72 Hours 01/27/19 15:15 Respiratory Panel (PCR) - Final Mucosa - Nose Rhinovirus Laboratory Tests Past 24 Hrs 01/27/19 01/31/19 01/31/19 13:25 05:20 05:20 WBC 6.3 RBC 4.14 L Hgb 10.9 L Hct 35.1 L MCV 84.8 MCH 26.3 L MCHC 31.1 L RDW 19.9 H RDW Differential 62.0 H Plt Count 128 L MPV 9.0 Immature Gran % (Auto) 0.300 Neut % (Auto) 65.0 Lymph % (Auto) 15.3 L Fisher % (Auto) 8.5 Eos % (Auto) 9.8 H Baso % (Auto) 1.1 H Absolute Neuts (auto) 4.1 Absolute Lymphs (auto) 0.97 Total Counted Not Reportable PT 16.5 H INR 1.4 Sodium Potassium Chloride Carbon Dioxide Anion Gap BUN Creatinine Estim Creat Clear Calc Est GFR (MDRD) Af Amer Est GFR (MDRD) Non-Af BUN/Creatinine Ratio Glucose Calcium SHANON Screen Negative 01/31/19 05:20 WBC RBC Hgb Hct MCV MCH MCHC RDW RDW Differential Plt Count MPV Immature Gran % (Auto) Neut % (Auto) Lymph % (Auto) Fisher % (Auto) Eos % (Auto) Baso % (Auto) Absolute Neuts (auto) Absolute Lymphs (auto) Total Counted PT INR Sodium 142 Potassium 4.2 Chloride 106 Carbon Dioxide 28.0 Anion Gap 8 BUN 28 H Creatinine 1.75 H Estim Creat Clear Calc 27.82 Est GFR (MDRD) Af Amer 48 L Est GFR (MDRD) Non-Af 40 L BUN/Creatinine Ratio 16.0 Glucose 103 Calcium 8.4 L SHANON Screen Clinical Impression(s) from Imaging Studies Chest X-Ray 01/26/19 21:05 IMPRESSION: Accumulation of large right pleural effusion and presumed collapse of much of the underlying right lung. There is residual aeration at the right apex. Infection is not excluded. Electronically Signed: Alex Woo, at 22:20 EST , Service support , Chest X-Ray 01/29/19 09:20 IMPRESSION: Mild improvement of large right pleural effusion. Possible small left effusion. Underlying parenchymal disease is not excluded. Electronically Signed: Ozzie Nguyen, at 10:47 EST Tel , Service support , Thoracentesis Ultrasound 01/30/19 08:00 IMPRESSION: Ultrasound-guided right thoracentesis. Electronically Signed: Justin Castro, at 14:40 EST , Service support , Medical Necessity - Tobacco Use Smoking Status: Never smoker Assessment/Plan All Active Problems (Last Reviewed 01/26/19 @ 23:43 by Josue Obregon DO) Community acquired bacterial pneumonia (Acute) Atrial fibrillation (Acute) Pleural effusion (Acute) Renal insufficiency (Acute) Pleural effusion (Acute) (HFpEF) heart failure with preserved ejection fraction (Acute) Chronic diastolic (congestive) heart failure (Acute) Chest pain (Resolved) Dehydration (Resolved) Hypomagnesemia (Resolved) RECOMMENDATIONS: 1. Resume Coumadin. 2. Continue with gentle diuresis as tolerated. 3. Wean supplemental oxygen to maintain saturations at or above 90%. Encourage incentive spirometer use. IMPRESSIONS: 1. Acute hypoxemic respiratory insufficiency due to large right pleural effusion and rhinovirus URI The patient was previously admitted to the hospital in November under similar circumstances and underwent an ultrasound-guided thoracentesis. However, no pleural fluid studies were ever sent to that time. Therefore, the etiology for the patient's current pleural effusion is unknown. While it was previously felt that the patient's pleural effusion was related to underlying heart failure, one would also have to consider underlying infectious, inflammatory or malignant etiologies. The patient subsequently underwent a repeat ultrasound-guided thoracentesis yesterday. However, pleural fluid was never sent for analysis. The patient's breathing quality did improve following pleural fluid drainage. Continue gentle diuresis as ordered. Wean supplemental oxygen to maintain saturations at or above 90%. 2. Heart failure with preserved ejection fraction/atrial fibrillation/valvular heart disease/chronic anticoagulation Continue outpatient medical regimen and gentle diuresis as tolerated. 3. Obstructive sleep apnea Unknown home settings, as the patient routinely follows with Dr. Kaur. Records from his office can always be obtained. However, in the interim, the patient can be placed on BiPAP 12/6 nightly. 4. GERD/BPH/hypertension/hyperlipidemia/advanced age Complicates care, management, recovery and prognosis. Likely okay to continue home medications. This note was generated with [employer] dictation software. It may contain incorrect words, spelling, and punctuation that were not noted in checking the note before signing. Code Visit Inpatient E&M: 72395 Subs Hosp L2
--- NOTE | 2019-01-31 08:15 | PN_ITS ---
Patient Problems: Active and Suspected Problems (Last Reviewed 01/26/19 @ 23:43 by Josue Obregon DO) Pleural effusion (Acute) (HFpEF) heart failure with preserved ejection fraction (Acute) Subjective: The patient was seen and examined at the bedside this morning. Events from the last 24 hours have been reviewed. The patient is currently afebrile, hemodynamically stable and maintaining appropriate oxygen saturations on 2 L/min via nasal cannula. The patient underwent successful ultrasound-guided thoracentesis yesterday with 1.7 L of fluid removed from his right hemithorax. Creatinine remains stable at 1.75 this morning. It does appear that once again despite there being orders for pleural fluid studies, none of the patient's pleural fluid was sent to the lab for analysis. Objective: The patient's most recent lab work, culture data and imaging studies have all been personally reviewed. Surface echocardiogram dated November 2018 revealed normal LV size and function with an ejection fraction of 60%. The patient had a mildly dilated RV in the right ventricular systolic pressure estimated to be 39 mmHg. Rapid influenza screen was negative. Respiratory viral panel was positive for rhinovirus. - Physical Exam General: Alert, No apparent distress HEENT: Atraumatic, PERRLA, Normocephalic Oral: Moist Mucosa Neck: Supple, No Nodes, Trachea Midline Lungs: - - Improved air movement throughout the right hemithorax. Cardiovascular: Normal S1, Normal S2, No murmurs, Irregular Rate Abdomen: Bowel Sounds Present, Soft, Non Tender Extremities: No clubbing, No cyanosis, Edema Skin: - - No significant change from previous. Musculoskeletal: No Tenderness to Palpation of Joints or Extremities Lymphatic: No Cervical, Supraclavicular, or Inguinal Adenopathy Neurological: Neuro grossly intact Psych/Mental Status: Normal Affect, Appropriate Vital Signs Temp Pulse Resp BP Pulse Ox 36.7 C 77 18 106/57 L 94 01/31/19 03:10 01/31/19 07:12 01/31/19 03:10 01/31/19 03:10 01/31/19 03:10 Oxygen Flow Rate (L/min) [3] 2 Oxygen Flow Rate (L/min) [2] 2 Oxygen Flow Rate (L/min) [1 ( 2 Initial Baseline)] Oxygen Flow Rate (L/min) 2 Oxygen Delivery Method [3] Nasal Cannula Oxygen Delivery Method [2] Nasal Cannula Oxygen Delivery Method [1 ( Nasal Cannula Initial Baseline)] Oxygen Delivery Method Nasal Cannula Weight: 168 lb 6.931 oz Body Mass Index (BMI) 29.3 Intake and Output for Last 24 Hours 01/29/19 01/30/19 01/31/19 23:59 23:59 23:59 Intake Total 1502.6 / 1502.6 336.7 / 336.7 Output Total 1950 / 1950 1450 / 1450 650 / 650 Balance -447.4 / -447.4 -1113.3 / -1113.3 -650 / -650 Microbiology Past 72 Hours 01/27/19 15:15 Respiratory Panel (PCR) - Final Mucosa - Nose Rhinovirus Laboratory Tests Past 24 Hrs 01/27/19 01/31/19 01/31/19 13:25 05:20 05:20 WBC 6.3 RBC 4.14 L Hgb 10.9 L Hct 35.1 L MCV 84.8 MCH 26.3 L MCHC 31.1 L RDW 19.9 H RDW Differential 62.0 H Plt Count 128 L MPV 9.0 Immature Gran % (Auto) 0.300 Neut % (Auto) 65.0 Lymph % (Auto) 15.3 L [place] % (Auto) 8.5 Eos % (Auto) 9.8 H Baso % (Auto) 1.1 H Absolute Neuts (auto) 4.1 Absolute Lymphs (auto) 0.97 Total Counted Not Reportable PT 16.5 H INR 1.4 Sodium Potassium Chloride Carbon Dioxide Anion Gap BUN Creatinine Estim Creat Clear Calc Est GFR (MDRD) Af Amer Est GFR (MDRD) Non-Af BUN/Creatinine Ratio Glucose Calcium SHANON Screen Negative 01/31/19 05:20 WBC RBC Hgb Hct MCV MCH MCHC RDW RDW Differential Plt Count MPV Immature Gran % (Auto) Neut % (Auto) Lymph % (Auto) [place] % (Auto) Eos % (Auto) Baso % (Auto) Absolute Neuts (auto) Absolute Lymphs (auto) Total Counted PT INR Sodium 142 Potassium 4.2 Chloride 106 Carbon Dioxide 28.0 Anion Gap 8 BUN 28 H Creatinine 1.75 H Estim Creat Clear Calc 27.82 Est GFR (MDRD) Af Amer 48 L Est GFR (MDRD) Non-Af 40 L BUN/Creatinine Ratio 16.0 Glucose 103 Calcium 8.4 L SHANON Screen Clinical Impression(s) from Imaging Studies Chest X-Ray 01/26/19 21:05 IMPRESSION: Accumulation of large right pleural effusion and presumed collapse of much of the underlying right lung. There is residual aeration at the right apex. Infection is not excluded. Electronically Signed: Alex Woo, at 22:20 EST , Service support , Chest X-Ray 01/29/19 09:20 IMPRESSION: Mild improvement of large right pleural effusion. Possible small left effusion. Underlying parenchymal disease is not excluded. Electronically Signed: Ozzie Nguyen, at 10:47 EST Tel , Service support , Thoracentesis Ultrasound 01/30/19 08:00 IMPRESSION: Ultrasound-guided right thoracentesis. Electronically Signed: Justin Castro, at 14:40 EST , Service support , Medical Necessity - Tobacco Use Smoking Status: Never smoker Assessment/Plan All Active Problems (Last Reviewed 01/26/19 @ 23:43 by Josue Obregon DO) Community acquired bacterial pneumonia (Acute) Atrial fibrillation (Acute) Pleural effusion (Acute) Renal insufficiency (Acute) Pleural effusion (Acute) (HFpEF) heart failure with preserved ejection fraction (Acute) Chronic diastolic (congestive) heart failure (Acute) Chest pain (Resolved) Dehydration (Resolved) Hypomagnesemia (Resolved) RECOMMENDATIONS: 1. Resume Coumadin. 2. Continue with gentle diuresis as tolerated. 3. Wean supplemental oxygen to maintain saturations at or above 90%. Encourage incentive spirometer use. IMPRESSIONS: 1. Acute hypoxemic respiratory insufficiency due to large right pleural effusion and rhinovirus URI The patient was previously admitted to the hospital in November under similar circumstances and underwent an ultrasound-guided thoracentesis. However, no pleural fluid studies were ever sent to that time. Therefore, the etiology for the patient's current pleural effusion is unknown. While it was previously felt that the patient's pleural effusion was related to underlying heart failure, one would also have to consider underlying infectious, inflammatory or malignant etiologies. The patient subsequently underwent a repeat ultrasound-guided thoracentesis yesterday. However, pleural fluid was never sent for analysis. The patient's breathing quality did improve following pleural fluid drainage. Continue gentle diuresis as ordered. Wean supplemental oxygen to maintain saturations at or above 90%. 2. Heart failure with preserved ejection fraction/atrial fibrillation/valvular heart disease/chronic anticoagulation Continue outpatient medical regimen and gentle diuresis as tolerated. 3. Obstructive sleep apnea Unknown home settings, as the patient routinely follows with Dr. Kaur. Records from his office can always be obtained. However, in the interim, the patient can be placed on BiPAP 12/6 nightly. 4. GERD/BPH/hypertension/hyperlipidemia/advanced age Complicates care, management, recovery and prognosis. Likely okay to continue home medications. This note was generated with [employer] dictation software. It may contain incorrect words, spelling, and punctuation that were not noted in checking the note before signing. Code Visit Inpatient E&M: 15828 Subs Hosp L2
[2019-01-31] MEDS: Furosemide 20 MG Tablet 60 MG PO (09:09)
[2019-01-31] MEDS: Carvedilol 6.25 MG Tablet PO (09:09)
[2019-01-31] MEDS: Calcium (Elemental) 500 MG Tablet PO (09:09)
[2019-01-31] MEDS: Ferrous Sulfate 325 MG Tablet PO (09:09)
[2019-01-31] MEDS: Lisinopril 20 MG Tablet PO (09:10)
[2019-01-31] MEDS: Tamsulosin HCl 0.4 MG Capsule PO (09:10)
[2019-01-31] MEDS: Pantoprazole Sodium 40 MG Tablet PO (09:10)
[2019-01-31] MEDS: Cyanocobalamin 500 MCG Tablet 1000 MCG PO (09:10)
[2019-01-31] MEDS: Galantamine Hydrobromide 4 MG Tablet PO (09:10)
--- NOTE | 2019-01-31 11:33 | DCINST_ITS ---
- Discharge Diagnoses Current Active Problems: Current Active and Chronic Problems (Last Reviewed 01/26/19 @ 23:43 by Josue Obregon DO) Pleural effusion (Acute) (HFpEF) heart failure with preserved ejection fraction (Acute) You will use the following diet at home:: Cardiac Your food should be the consistency of: Regular Your liquids should be the consistency of: Regular/Thin Discharge Activity: Return to Normal Activity, No Restrictions Call your doctor if you observe: Fever of 101 or Higher, Shortness of breath, Dizziness, Fainting spells, Swelling in the ankles, Chest pain, Increased palpitations (irregular heartbeat) Allergies/Adverse Reactions: Allergies cimetidine HCl [From Tagamet] Allergy (Verified 01/26/19 20:11) Rash ciprofloxacin [From Cipro] Allergy (Verified 01/26/19 20:11) Rash amoxicillin trihydrate [From Augmentin] Adverse Reaction (Verified 01/26/19 20:11) Abd cramps/diarrhea cefdinir [From Omnicef] Adverse Reaction (Verified 01/26/19 20:11) Diarrhea indomethacin sodium [From Indocin] Adverse Reaction (Verified 01/26/19 20:11) Nausea memantine HCl [From Namenda] Adverse Reaction (Verified 01/26/19 20:11) dizziness potassium clavulanate [From Augmentin] Adverse Reaction (Verified 01/26/19 20:11) Abd cramps/diarrhea sitagliptin phosphate [From Januvia] Adverse Reaction (Verified 01/26/19 20:11) Nausea Medications to take at Discharge Cholecalciferol (Vitamin D3) [Vitamin D3] 1,000 unit PO DAILY 12/25/13 Aspirin [Aspirin, Baby] 81 mg PO QHS 11/17/14 Cyanocobalamin [Vitamin B12] 1,000 mcg PO DAILY@0800 11/17/14 Pantoprazole Sodium [Protonix] 40 mg PO DAILY 11/17/14 Dicyclomine HCl [Bentyl] 10 mg PO DINNER 03/15/17 Loratadine 10 mg PO DINNER 03/15/17 magnesium oxide 400 mg (241.3 mg magnesium) tablet 400 mg PO LUNCH 12/30/17 Amlodipine [Norvasc] 5 mg PO QHS 12/20/18 Ascorbic Acid [Vitamin C] 1,000 mg PO DAILY 12/20/18 Galantamine HBr 8 mg PO DAILY 12/20/18 Tamsulosin HCl [Flomax] 0.4 mg PO DAILY 12/20/18 Carvedilol [Coreg (Beta Hemant)] 6.25 mg PO BID #60 tab 12/23/18 Furosemide [Lasix] 60 mg PO BID@1000,1800 #180 tab 12/23/18 warfarin 2 mg tablet 1 mg PO QODAY tab 12/27/18 warfarin 2 mg tablet 2 mg PO QODAY 12/27/18 ferrous sulfate 325 mg (65 mg iron) tablet 325 mg PO DAILY tab 01/02/19 lisinopril 40 mg tablet 20 mg PO DAILY tab 01/02/19 Calcium Carbonate [Calcium] 600 mg PO DAILY 01/26/19 Amiodarone HCl [Cordarone] 200 mg PO QHS tablet 01/31/19 Primary Care Physician: Pedro Marie MD [Primary Care Provider] - Please follow up with your Primary Care Physician in: 3-5 days Test Results: Test results from this visit will be discussed in further detail at your follow- up appointment, if applicable.
--- NOTE | 2019-01-31 11:33 | PCM.DC.SUM ---
Discharge Date and Diagnosis - Problem List Patient Problems: Active and Suspected Problems (Last Reviewed 01/26/19 @ 23:43 by Josue Obregon DO) Pleural effusion (Acute) (HFpEF) heart failure with preserved ejection fraction (Acute) Date of Admission: 01/26/19 Date of Discharge: 01/31/19 - Primary Discharge Diagnosis Active and Suspected Problems (Last Reviewed 01/26/19 @ 23:43 by Josue Obregon DO) Pleural effusion (Acute) (HFpEF) heart failure with preserved ejection fraction (Acute) - Secondary Discharge Diagnosis Chronic Problems (Last Reviewed 01/26/19 @ 23:43 by Josue Obregon DO) Valvular heart disease (Chronic) Nonrheumatic mitral (valve) insufficiency (Chronic) Non-rheumatic tricuspid valve insufficiency (Chronic) Non-rheumatic aortic stenosis (Chronic) History of left heart catheterization (Chronic ~01/2014) 05/02/[address] Robertson [facility]; 01/29/[address] Porter at [facility]: coronaries angiographically normal, pulmonary htn by RV eval, EF at that time was 45-50% History of pleural effusion (Chronic) 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 (Chronic) shelter current use of 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) Hypertension (Chronic) Chronic renal failure, stage 3 (moderate) (Chronic) History of anxiety disorder (Chronic) Generalized osteoarthritis (Chronic) History of gout (Chronic) Mild dementia (Chronic) Rheumatoid arthritis (Chronic) Diabetes mellitus, type II (Chronic) Generalized weakness (Chronic) History of prostate cancer (Chronic) Status post radiotherapy Anemia of chronic disease (Chronic) due to CRF and RA PAF (paroxysmal atrial fibrillation) (Chronic) Hospital Course and Treatment Imaging Results: CXR: IMPRESSION: Accumulation of large right pleural effusion and presumed collapse of much of the underlying right lung. There is residual aeration at the right apex. Infection is not excluded. Consults: Pulmonology Operations: None Procedures: Thoracentesis - PROCEDURE: The risks, benefits, and alternatives to the procedure were explained to the patient. The specific risks of bleeding, infection, and pneumothorax requiring chest tube insertion were discussed and accepted. Written informed consent was obtained. Ultrasonographic evaluation of the right lower pleural space was carried out. An adequate pocket was identified. The patient was placed in the sitting, upright position. The overlying skin was prepped and draped in sterile fashion. 1% lidocaine was administered subcutaneously for local anesthesia. Under ultrasound guidance, a 5 [place] thoracentesis needle/catheter system was advanced into the right posterior lower pleural fluid collection. Approximately 1700 mL of crescencio-colored fluid was drained. The catheter was removed, and a sterile dressing was applied. The patient tolerated the procedure well. A chest x-ray was ordered. Summary of Care Provided: Per HPI: The patient is a 83 year old M presents with shortness of breath. Has been going on for 1 week. Saw his primary care doctor this week and diagnosed with bronchitis and received Omnicef. Despite that, shortness of breath got worse. Presented to the emergency room where he was noted right-sided pleural effusion. Patient was admitted last month with heart failure and acute pleural effusion and received a thoracentesis at that time. History is obtained by the family at the bedside as patient is a poor historian. Hospital Course: 1. Acute respiratory insufficiency with hypoxia secondary to a large right pleural [id number]-old male with a history of A. fib, diastolic heart failure presents with a recurrence of a right pleural effusion. He has had multiple his most recent being in November of this year. At that time the only removed 500 cc of fluid. He underwent a thoracentesis on Wednesday and 1700 cc was removed. He had had his pleural fluid evaluated this time in 2013 and it was found to be transudative, therefore fluid evaluation was not repeated this time. He was also initially started on Lasix 60 mg IV 3 times daily which was discontinued once he had his thoracentesis. I did discuss with the and the patient that the likelihood of his pleural effusion is fairly high and therefore they would benefit from having an outpatient thoracic surgery evaluation for a possible pleurodesis. 2. A. fib/pulmonary hypertension/moderate to severe aortic stenosis/HTN/chronic diastolic heart failure-on admission he was found to be in A. fib and his amiodarone was switched from 100 mg at night to amiodarone drip. His blood pressure was low with the amount of Lasix that he was getting as well as his continued Coreg and therefore his amiodarone drip was stopped but he was increased to 200 mg at night after his thoracentesis was completed. He has tolerated this dose fairly well and will continue with his 200 mg amiodarone in the short-term. TSH workup was normal and does not show any amiodarone toxicity. We will also continue his Lasix 60 mg twice daily for his heart failure and edema. 3. His other medical diagnoses were evaluated and his home medications were continued where appropriate Patient Problems: Active and Suspected Problems (Last Reviewed 01/26/19 @ 23:43 by Josue Obregon DO) Pleural effusion (Acute) (HFpEF) heart failure with preserved ejection fraction (Acute) Objective: General: Alert, Oriented x3, Cooperative, No apparent distress HEENT: Atraumatic, PERRLA, EOMI, Normocephalic Oral: Moist Mucosa Neck: Supple, No JVD, Trachea Midline Lungs: Clear to auscultation, Normal air movement, No rhonchi, No wheeze, No rales, Cardiovascular: Regular rate, Normal S1, Normal S2, No murmurs, - - Regular rhythm Abdomen: Soft, Non Tender, Non-Distended, No Hepato-splenomegaly Extremities: Capillary Refill Less than 3 Seconds, Edema - trace edema bilateral Skin: No rashes, No breakdown Neurological: Neuro grossly intact, Sensory exam intact to light touch and pain Psych/Mental Status: Normal Affect, Appropriate - Physical Exam Vital Signs Temp Pulse Resp BP Pulse Ox 97 F L 88 16 118/59 L 99 01/31/19 08:46 01/31/19 08:46 01/31/19 08:46 01/31/19 08:46 01/31/19 08:46 Oxygen Flow Rate (L/min) [3] 2 Oxygen Flow Rate (L/min) [2] 2 Oxygen Flow Rate (L/min) [1 ( 2 Initial Baseline)] Oxygen Flow Rate (L/min) 1 Oxygen Delivery Method [3] Nasal Cannula Oxygen Delivery Method [2] Nasal Cannula Oxygen Delivery Method [1 ( Nasal Cannula Initial Baseline)] Oxygen Delivery Method Nasal Cannula Weight: 168 lb 6.931 oz Body Mass Index (BMI) 29.3 Intake and Output for Last 24 Hours 01/29/19 01/30/19 01/31/19 23:59 23:59 23:59 Intake Total 1502.6 / 1502.6 336.7 / 336.7 Output Total 1950 / 1950 1450 / 1450 650 / 650 Balance -447.4 / -447.4 -1113.3 / -1113.3 -650 / -650 Microbiology Past 72 Hours 01/27/19 15:15 Respiratory Panel (PCR) - Final Mucosa - Nose Rhinovirus Laboratory Tests Past 24 Hrs 01/31/19 01/31/19 01/31/19 05:20 05:20 05:20 WBC 6.3 RBC 4.14 L Hgb 10.9 L Hct 35.1 L MCV 84.8 MCH 26.3 L MCHC 31.1 L RDW 19.9 H RDW Differential 62.0 H Plt Count 128 L MPV 9.0 Immature Gran % (Auto) 0.300 Neut % (Auto) 65.0 Lymph % (Auto) 15.3 L [place] % (Auto) 8.5 Eos % (Auto) 9.8 H Baso % (Auto) 1.1 H Absolute Neuts (auto) 4.1 Absolute Lymphs (auto) 0.97 Total Counted Not Reportable PT 16.5 H INR 1.4 Sodium 142 Potassium 4.2 Chloride 106 Carbon Dioxide 28.0 Anion Gap 8 BUN 28 H Creatinine 1.75 H Estim Creat Clear Calc 27.82 Est GFR (MDRD) Af Amer 48 L Est GFR (MDRD) Non-Af 40 L BUN/Creatinine Ratio 16.0 Glucose 103 Calcium 8.4 L Discharge Activity: Return to Normal Activity, No Restrictions Call your doctor if you observe: Fever of 101 or Higher, Shortness of breath, Dizziness, Fainting spells, Swelling in the ankles, Chest pain, Increased palpitations (irregular heartbeat) Home Medications: Medications to take at Discharge Cholecalciferol (Vitamin D3) [Vitamin D3] 1,000 unit PO DAILY 12/25/13 Aspirin [Aspirin, Baby] 81 mg PO QHS 11/17/14 Cyanocobalamin [Vitamin B12] 1,000 mcg PO DAILY@0800 11/17/14 Pantoprazole Sodium [Protonix] 40 mg PO DAILY 11/17/14 Dicyclomine HCl [Bentyl] 10 mg PO DINNER 03/15/17 Loratadine 10 mg PO DINNER 03/15/17 magnesium oxide 400 mg (241.3 mg magnesium) tablet 400 mg PO LUNCH 12/30/17 Amlodipine [Norvasc] 5 mg PO QHS 12/20/18 Ascorbic Acid [Vitamin C] 1,000 mg PO DAILY 12/20/18 Galantamine HBr 8 mg PO DAILY 12/20/18 Tamsulosin HCl [Flomax] 0.4 mg PO DAILY 12/20/18 Carvedilol [Coreg (Beta Hemant)] 6.25 mg PO BID #60 tab 12/23/18 Furosemide [Lasix] 60 mg PO BID@1000,1800 #180 tab 12/23/18 warfarin 2 mg tablet 1 mg PO QODAY tab 12/27/18 warfarin 2 mg tablet 2 mg PO QODAY 12/27/18 ferrous sulfate 325 mg (65 mg iron) tablet 325 mg PO DAILY tab 01/02/19 lisinopril 40 mg tablet 20 mg PO DAILY tab 01/02/19 Calcium Carbonate [Calcium] 600 mg PO DAILY 01/26/19 Amiodarone HCl [Cordarone] 200 mg PO QHS tablet 01/31/19 Primary Care Physician: Pedro Marie MD [Primary Care Provider] - Please follow up with your Primary Care Physician in: 3-5 days Disposition: Home Minutes spent on discharge:: 35 Patient Condition:: Stable Medical Necessity - Tobacco Use Smoking Status: Never smoker Meaningful Use Info Meaningful Use Diagnoses (Choose all that apply): None applicable Code Visit Inpatient E&M: 88512 Disch Hosp
--- NOTE | 2019-01-31 11:43 | DS.PCM_ITS ---
Discharge Date and Diagnosis - Problem List Patient Problems: Active and Suspected Problems (Last Reviewed 01/26/19 @ 23:43 by Josue Obregon DO) Pleural effusion (Acute) (HFpEF) heart failure with preserved ejection fraction (Acute) Date of Admission: 01/26/19 Date of Discharge: 01/31/19 - Primary Discharge Diagnosis Active and Suspected Problems (Last Reviewed 01/26/19 @ 23:43 by Josue Obregon DO) Pleural effusion (Acute) (HFpEF) heart failure with preserved ejection fraction (Acute) - Secondary Discharge Diagnosis Chronic Problems (Last Reviewed 01/26/19 @ 23:43 by Josue Obregon DO) Valvular heart disease (Chronic) Nonrheumatic mitral (valve) insufficiency (Chronic) Non-rheumatic tricuspid valve insufficiency (Chronic) Non-rheumatic aortic stenosis (Chronic) History of left heart catheterization (Chronic ~01/2014) 05/02/[address] Robertson [facility]; 01/29/[address] Porter at [facility]: coronaries angiographically normal, pulmonary htn by RV eval, EF at that time was 45-50% History of pleural effusion (Chronic) 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 (Chronic) [facility] current use of 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) Hypertension (Chronic) Chronic renal failure, stage 3 (moderate) (Chronic) History of anxiety disorder (Chronic) Generalized osteoarthritis (Chronic) History of gout (Chronic) Mild dementia (Chronic) Rheumatoid arthritis (Chronic) Diabetes mellitus, type II (Chronic) Generalized weakness (Chronic) History of prostate cancer (Chronic) Status post radiotherapy Anemia of chronic disease (Chronic) due to CRF and RA PAF (paroxysmal atrial fibrillation) (Chronic) Hospital Course and Treatment Imaging Results: CXR: IMPRESSION: Accumulation of large right pleural effusion and presumed collapse of much of the underlying right lung. There is residual aeration at the right apex. Infection is not excluded. Consults: Pulmonology Operations: None Procedures: Thoracentesis - PROCEDURE: The risks, benefits, and alternatives to the procedure were explained to the patient. The specific risks of bleeding, infection, and pneumothorax requiring chest tube insertion were discussed and accepted. Written informed consent was obtained. Ultrasonographic evaluation of the right lower pleural space was carried out. An adequate pocket was identified. The patient was placed in the sitting, upright position. The overlying skin was prepped and draped in sterile fashion. 1% lidocaine was administered subcutaneously for local anesthesia. Under ultrasound guidance, a 5 [place] thoracentesis needle/catheter system was advanced into the right posterior lower pleural fluid collection. Approximately 1700 mL of crescencio- colored fluid was drained. The catheter was removed, and a sterile dressing was applied. The patient tolerated the procedure well. A chest x-ray was ordered. Summary of Care Provided: Per HPI: The patient is a 83 year old M presents with shortness of breath. Has been going on for 1 week. Saw his primary care doctor this week and diagnosed with bronchitis and received Omnicef. Despite that, shortness of breath got worse. Presented to the emergency room where he was noted right-sided pleural effusion. Patient was admitted last month with heart failure and acute pleural effusion and received a thoracentesis at that time. History is obtained by the family at the bedside as patient is a poor historian. Hospital Course: 1. Acute respiratory insufficiency with hypoxia secondary to a large right pleural [id number]-old male with a history of A. fib, diastolic heart failure presents with a recurrence of a right pleural effusion. He has had multiple his most recent being in November of this year. At that time the only removed 500 cc of fluid. He underwent a thoracentesis on Wednesday and 1700 cc was removed. He had had his pleural fluid evaluated this time in 2013 and it was found to be transudative, therefore fluid evaluation was not repeated this time. He was also initially started on Lasix 60 mg IV 3 times daily which was discontinued once he had his thoracentesis. I did discuss with the and the patient that the likelihood of his pleural effusion is fairly high and therefore they would benefit from having an outpatient thoracic surgery evaluation for a possible pleurodesis. 2. A. fib/pulmonary hypertension/moderate to severe aortic stenosis/HTN/chronic diastolic heart failure-on admission he was found to be in A. fib and his amiodarone was switched from 100 mg at night to amiodarone drip. His blood pressure was low with the amount of Lasix that he was getting as well as his continued Coreg and therefore his amiodarone drip was stopped but he was increased to 200 mg at night after his thoracentesis was completed. He has tolerated this dose fairly well and will continue with his 200 mg amiodarone in the short-term. TSH workup was normal and does not show any amiodarone toxicity. We will also continue his Lasix 60 mg twice daily for his heart failu re and edema. 3. His other medical diagnoses were evaluated and his home medications were continued where appropriate Patient Problems: Active and Suspected Problems (Last Reviewed 01/26/19 @ 23:43 by Josue Obregon DO) Pleural effusion (Acute) (HFpEF) heart failure with preserved ejection fraction (Acute) Objective: General: Alert, Oriented x3, Cooperative, No apparent distress HEENT: Atraumatic, PERRLA, EOMI, Normocephalic Oral: Moist Mucosa Neck: Supple, No JVD, Trachea Midline Lungs: Clear to auscultation, Normal air movement, No rhonchi, No wheeze, No rales, Cardiovascular: Regular rate, Normal S1, Normal S2, No murmurs, - - Regular rhythm Abdomen: Soft, Non Tender, Non-Distended, No Hepato-splenomegaly Extremities: Capillary Refill Less than 3 Seconds, Edema - trace edema bilateral Skin: No rashes, No breakdown Neurological: Neuro grossly intact, Sensory exam intact to light touch and pain Psych/Mental Status: Normal Affect, Appropriate - Physical Exam Vital Signs Temp Pulse Resp BP Pulse Ox 97 F L 88 16 118/59 L 99 01/31/19 08:46 01/31/19 08:46 01/31/19 08:46 01/31/19 08:46 01/31/19 08:46 Oxygen Flow Rate (L/min) [3] 2 Oxygen Flow Rate (L/min) [2] 2 Oxygen Flow Rate (L/min) [1 ( 2 Initial Baseline)] Oxygen Flow Rate (L/min) 1 Oxygen Delivery Method [3] Nasal Cannula Oxygen Delivery Method [2] Nasal Cannula Oxygen Delivery Method [1 ( Nasal Cannula Initial Baseline)] Oxygen Delivery Method Nasal Cannula Weight: 168 lb 6.931 oz Body Mass Index (BMI) 29.3 Intake and Output for Last 24 Hours 01/29/19 01/30/19 01/31/19 23:59 23:59 23:59 Intake Total 1502.6 / 1502.6 336.7 / 336.7 Output Total 1950 / 1950 1450 / 1450 650 / 650 Balance -447.4 / -447.4 -1113.3 / -1113.3 -650 / -650 Microbiology Past 72 Hours 01/27/19 15:15 Respiratory Panel (PCR) - Final Mucosa - Nose Rhinovirus Laboratory Tests Past 24 Hrs 01/31/19 01/31/19 01/31/19 05:20 05:20 05:20 WBC 6.3 RBC 4.14 L Hgb 10.9 L Hct 35.1 L MCV 84.8 MCH 26.3 L MCHC 31.1 L RDW 19.9 H RDW Differential 62.0 H Plt Count 128 L MPV 9.0 Immature Gran % (Auto) 0.300 Neut % (Auto) 65.0 Lymph % (Auto) 15.3 L [place] % (Auto) 8.5 Eos % (Auto) 9.8 H Baso % (Auto) 1.1 H Absolute Neuts (auto) 4.1 Absolute Lymphs (auto) 0.97 Total Counted Not Reportable PT 16.5 H INR 1.4 Sodium 142 Potassium 4.2 Chloride 106 Carbon Dioxide 28.0 Anion Gap 8 BUN 28 H Creatinine 1.75 H Estim Creat Clear Calc 27.82 Est GFR (MDRD) Af Amer 48 L Est GFR (MDRD) Non-Af 40 L BUN/Creatinine Ratio 16.0 Glucose 103 Calcium 8.4 L Discharge Activity: Return to Normal Activity, No Restrictions Call your doctor if you observe: Fever of 101 or Higher, Shortness of breath, Dizziness, Fainting spells, Swelling in the ankles, Chest pain, Increased palpitations (irregular heartbeat) Home Medications: Medications to take at Discharge Cholecalciferol (Vitamin D3) [Vitamin D3] 1,000 unit PO DAILY 12/25/13 Aspirin [Aspirin, Baby] 81 mg PO QHS 11/17/14 Cyanocobalamin [Vitamin B12] 1,000 mcg PO DAILY@0800 11/17/14 Pantoprazole Sodium [Protonix] 40 mg PO DAILY 11/17/14 Dicyclomine HCl [Bentyl] 10 mg PO DINNER 03/15/17 Loratadine 10 mg PO DINNER 03/15/17 magnesium oxide 400 mg (241.3 mg magnesium) tablet 400 mg PO LUNCH 12/30/17 Amlodipine [Norvasc] 5 mg PO QHS 12/20/18 Ascorbic Acid [Vitamin C] 1,000 mg PO DAILY 12/20/18 Galantamine HBr 8 mg PO DAILY 12/20/18 Tamsulosin HCl [Flomax] 0.4 mg PO DAILY 12/20/18 Carvedilol [Coreg (Beta Hemant)] 6.25 mg PO BID #60 tab 12/23/18 Furosemide [Lasix] 60 mg PO BID@1000,1800 #180 tab 12/23/18 warfarin 2 mg tablet 1 mg PO QODAY tab 12/27/18 warfarin 2 mg tablet 2 mg PO QODAY 12/27/18 ferrous sulfate 325 mg (65 mg iron) tablet 325 mg PO DAILY tab 01/02/19 lisinopril 40 mg tablet 20 mg PO DAILY tab 01/02/19 Calcium Carbonate [Calcium] 600 mg PO DAILY 01/26/19 Amiodarone HCl [Cordarone] 200 mg PO QHS tablet 01/31/19 Primary Care Physician: Pedro Marie MD [Primary Care Provider] - Please follow up with your Primary Care Physician in: 3-5 days Disposition: Home Minutes spent on discharge:: 35 Patient Condition:: Stable Medical Necessity - Tobacco Use Smoking Status: Never smoker Meaningful Use Info Meaningful Use Diagnoses (Choose all that apply): None applicable Code Visit Inpatient E&M: 91670 Disch Hosp
[2019-01-31] MEDS: Ascorbic Acid 500 MG Tablet 1000 MG PO (11:52)
[2019-01-31] MEDS: Magnesium Oxide 400 MG Tablet PO (11:52)
--- NOTE | 2019-01-31 12:25 | CASEMGMT ---
Therapy is recommending further skilled therapy and pt is agreeable to [facility] at this time. Call to Kylee at [facility] and she states they are able to take pt for PT/OT at this time. Per Tee SORIA, pt does not qualify for home oxygen at this time. Pt/ voice no further questions/concerns/needs at this time. Princess SORIA CM
--- NOTE | 2019-02-01 13:26 | CASEMGMT ---
[facility] Discharge F/U Phone Call LACE: 13 Strata: 4 Discharge date: 01/31/19 Call date: 02/01/19 Call time: [id number] Duration: 3 minutes Admission dx: Pleural effusion Pt's answered and prefers to answer questions for pt at this time. She states that pt is 'doing pretty good.' states no questions regarding discharge instructions or medications at this time. states that [facility] came out this am. states that pt has PCP f/u scheduled and plans to keep it. voices no suggestions for [facility] at this time. voices no further questions/concerns/needs at this time. [place] [facility]
== END 2019-01-31 13:50 | disposition home health service (06) | DRG 186 ==
LOC: ED 20:38 → PCU 22:54
PROVIDERS: Internal Medicine; Emergency Provider Emergency Medicine; Family Provider Family Medicine; PCP Family Medicine; Visit Provider Family Medicine
DX: J90 Pleural effusion, not elsewhere classified (principal); I50.33 Acute on chronic diastolic (congestive) heart failure; I13.0 Hypertensive heart and chronic kidney disease with heart failure and stage 1 through stage 4 chronic kidney disease, or unspecified chronic kidney disease; I48.2 Chronic atrial fibrillation; M15.9 Polyosteoarthritis, unspecified; I27.20 Pulmonary hypertension, unspecified; F03.90 Unspecified dementia, unspecified severity, without behavioral disturbance, psychotic disturbance, mood disturbance, and anxiety; R09.02 Hypoxemia; I35.0 Nonrheumatic aortic (valve) stenosis; I34.0 Nonrheumatic mitral (valve) insufficiency; I07.1 Rheumatic tricuspid insufficiency; R06.89 Other abnormalities of breathing; E11.22 Type 2 diabetes mellitus with diabetic chronic kidney disease; N18.3 Chronic kidney disease, stage 3 (moderate); K21.9 Gastro-esophageal reflux disease without esophagitis; N40.0 Benign prostatic hyperplasia without lower urinary tract symptoms; G47.33 Obstructive sleep apnea (adult) (pediatric); J06.9 Acute upper respiratory infection, unspecified; B97.89 Other viral agents as the cause of diseases classified elsewhere; M10.9 Gout, unspecified; D63.1 Anemia in chronic kidney disease; M06.9 Rheumatoid arthritis, unspecified; Z85.46 Personal history of malignant neoplasm of prostate; Z92.3 Personal history of irradiation; Z79.01 Long term (current) use of anticoagulants
CPT/HCPCS: 32555; 36415; 71045; 71046; 80048; 80076; 82962; 83615; 83735; 83880; 84100; 84156; 84484; 85025; 85027; 85610; 85652; 85730; 86038; 86140; 86225; 86235; 86431; 87633; 87804; 93005; 94640; 97110; 97161; 97165; 97530; 97535; 97802; 99285; A4216; J1940

== ENCOUNTER → 2019-02-06 10:53 | Outpatient (CLI) | payer MEDICARE, SELFPAY ==
[2019-01-27 00:13] VITALS: BMI 29.3
[2019-02-06 11:50] LABS: Anion Gap 10 (5-15); BUN 32 mg/dL (7-18); Calcium,Total 8.5 mg/dL (8.5-10.1); Chloride 101 mmol/L (98-107); Creatinine, Serum 1.68 mg/dL (0.70-1.30); EST Glomerular Filtration Rate 42 mL/min (>60); Est Glom Filt Rate - Afr Amer 50 mL/min (>60); Glucose 138 mg/dL (74-106); PSA,Total- Diagnostic 0.18 ng/mL (0.0-4.0); Potassium 3.7 mmol/L (3.5-5.1); Sodium Level 141 mmol/L (136-145)
== END ==
PROVIDERS: Family Provider Family Medicine; PCP Family Medicine; Referring Provider Urology; Visit Provider Urology
DX: C61 Malignant neoplasm of prostate (principal); N39.0 Urinary tract infection, site not specified; R31.9 Hematuria, unspecified; I50.9 Heart failure, unspecified
CPT/HCPCS: 36415; 80048; 84153; 87077; 87086; 87088; 87186

== ENCOUNTER 2019-02-15 07:03 | Day surgery (SDC) | payer MEDICARE, SELFPAY ==
[2019-01-27 00:13] VITALS: BMI 29.3
--- NOTE | 2019-02-09 19:22 | HP.PCM_ITS ---
History and Physical Date of Admission: 02/15/19 HISTORY AND PHYSICAL ? Tyrell Gay 1935 ? ? REFERRING PHYSICIAN: ??Willie Clifford, SEAN ? CHIEF COMPLAINT: ??New Patient ([facility] f/u Thorcentesis) ? HPI: The patient is a 83 year old male with a diagnosis of recurring right pleural effusion. ?Tyrell has had issues of recurrent accumulation of what seems to be a transitive fluid since 2013 when he first underwent a thoracentesis. ??Fluid from that thoracentesis was sent for cytology which returned as macrophages and cells consistent with a transudate no suspicious- looking cells. ?Fluid analysis at that time demonstrated mostly lymphocytes and monocytes, with a good percentage of mesothelial cells. ?Glucose, protein, LDH were all consistent with transitive fluid. ? He was evaluated by cardiology at the time was felt to have a degree of right- sided heart failure and otherwise is doing well. ? He was admitted back in November again with a right pleural effusion and underwent thoracentesis. ?He had 500 cc of crescencio fluid removed from the right hemithorax in November. ?Pleural fluid studies were sent at that time. ? His evaluation cardiology at the time noted a history of paroxysmal atrial fibrillation, chronic diastolic mediated congestive heart failure and valvular heart disease with concerns of aortic valve stenosis pulmonary hypertension. ? He was readmitted on January 27 with again complaints of acute hypoxic respiratory insufficiency. ?He was evaluated by Dr. Beau Guerra, pulmonology. ?He underwent ultrasound-guided thoracentesis on January 30, 2019 yielding 1700 cc of crescencio-appearing fluid ? He is currently not short of breath. ? ?Tyrell is referred for evaluation for placement of a tunnelled right catheter or Pleurex catheter ? The patient is being seen by me today at the request of Dr. Pedro Marie MD for my opinion and advice regarding right tunneled thoracic catheter placement.? ? ? PAST?MEDICAL?HISTORY PAST MEDICAL HISTORY Diagnosis Date ? Anemia, unspecified ? ? Atrial fibrillation (HCC) ? ? Benign neoplasm of stomach ? ? Diarrhea ? ? Essential hypertension, benign ? ? Irritable bowel syndrome ? ? Prostate CA (HCC) ? ? Type II or unspecified type diabetes mellitus with unspecified complication, not stated as uncontrolled ? ? Urinary frequency ? PAST?SURGICAL?HISTORY PAST SURGICAL HISTORY Procedure Laterality Date ? CATARACT EXTRACTION HX ? ? ? COLONOSCOP W/ OR W/O [facility] SPEC ? 1991 and 2000 ? Colonoscopy ? COLONOSCOPY W/BX ? 03/14/10 ? EGD W/O [facility] SPECIMEN W/BX ? 03/14/10 ? EGD W/O OR W/BRUSH/WASH ? 2001 ? EGD ? LAPAROSCOPIC CHOLEYCYSTECTOMY ? ? ? Cholecystectomy, lap ? REMOVAL OF TONSILS,<12 Y/O ? ? ? Tonsillectomy ? REPAIR INCISIONAL HERNIA,REDUCIBLE ? ? ? Hernia repair, incisional ? TOTAL KNEE REPLACEMENT ? 10/06 ? left ? ? ? CURRENT?MEDICATIONS ? Current Outpatient Medications: amiodarone (PACERONE) 200 mg tablet Take by mouth once daily. Disp: Rfl: amLODIPine (NORVASC) 5 mg tablet Take 5 mg by mouth once daily. Disp: Rfl: colchicine (COLCRYS) 0.6 mg tablet Take 0.6 mg by mouth three times daily as needed. Disp: Rfl: dicyclomine (BENTYL) 10 mg capsule Take 10 mg by mouth before meals and at bedtime. Disp: Rfl: lisinopril (ZESTRIL, PRINIVIL) 20 mg tablet Take 20 mg by mouth once daily. Disp: Rfl: loratadine 10 mg cap Take by mouth. Disp: Rfl: magnesium oxide 400 mg cap Take by mouth. Disp: Rfl: nitroglycerin sublingual (NITROSTAT) 0.4 mg SL tablet Dissolve 0.4 mg under the tongue every 5 minutes as needed. Disp: Rfl: pantoprazole DR (PROTONIX) 40 mg tablet Take 40 mg by mouth once daily. Disp: Rfl: tamsulosin ER (FLOMAX) 0.4 mg cap Take 0.4 mg by mouth. Disp: Rfl: metFORMIN 500 mg 24 hr tablet Take 500 mg by mouth twice daily with meals. Disp: Rfl: donepezil (ARICEPT) 10 mg tablet Take 10 mg by mouth daily at bedtime. Disp: Rfl: memantine (NAMENDA) 5 mg tablet Take 5 mg by mouth twice daily. Disp: Rfl: citalopram (CELEXA) 40 mg tablet Take 40 mg by mouth once daily. Disp: Rfl: furosemide (LASIX) 40 mg tablet Take 20 mg by mouth three times daily. Disp: Rfl: POTASSIUM CHLORIDE (KLOR-CON M20 ORAL) Take 1 tablet by mouth once daily. Disp: Rfl: carvedilol (COREG) 25 mg tablet Take 6.25 mg by mouth twice daily with meals. Disp: Rfl: warfarin (COUMADIN) 2 mg tablet Take 2 mg by mouth daily as directed. Disp: Rfl: mometasone-formoterol (DULERA) 100-5 mcg/actuation inhaler Inhale 2 Puffs as instructed twice daily. Disp: Rfl: CALCIUM CARBONATE/VITAMIN D3 (VITAMIN D-3 ORAL) Take 100 mg by mouth once daily. Disp: Rfl: cyanocobalamin (VITAMIN B-12) 500 mcg tab Take 1 tablet by mouth once daily. Disp: Rfl: Ferrous Sulfate 325 mg (65 mg iron) tablet Take 325 mg by mouth daily with breakfast. Disp: Rfl: albuterol HFA (PROAIR HFA) 90 mcg/actuation inhaler Inhale 2 Puffs as instructed every 4 hours as needed. Disp: Rfl: multivitamin ORAL tablet Take one(1) tablet daily. Disp: Rfl: Aspirin 81 mg ORAL Tab Take one(1) tablet daily. Disp: Rfl: diphenoxylate hcl/atrop sulf(LOMOTIL 2.5 MG-0.025 MG TAB) Take one(1) tablet two(2) times daily. ?as needed Disp: Rfl: 0 lisinopril/hydrochlorothiazide(PRINZIDE 20 MG-12.5 MG TAB) Take one(1) tablet daily. Disp: Rfl: 0 ? No current facility-administered medications for this visit.? ? ALLERGIES:?Amlodipine; Augmentin [Amoxicillin-Pot Clavulanate]; Cipro [Ciprofloxacin]; Indocin [Indomethacin Sodium]; Januvia [Sitagliptin]; Tagamet [Cimetidine] ? PERSONAL HISTORY:? SOCIAL?HISTORY Social History ??Socioeconomic History ?Marital status: ?Spouse name: Not on file ?Number of children: Not on file ?Years of education: Not on file ?Highest education level: Not on file ??Social Needs ?Financial resource strain: Not on file ?Food insecurity - worry: Not on file ?Food insecurity - inability: Not on file ?Transportation needs - medical: Not on file ?Transportation needs - non-medical: Not on file ??Occupational History ?Not on file ??Tobacco Use ?Smoking status: Never Smoker ??Substance and Sexual Activity ?Alcohol use: No ?Drug use: Not on file ?Sexual activity: Not on file ??Other Topics ?Concerns: ?Not on file ??Social History Narrative ?Not on file ?? ? FAMILY HISTORY:? FAMILY?HISTORY FAMILY HISTORY Problem Relation Age of Onset ? Heart Father ?at age 71 ? ? REVIEW OF SYMPTOMS: ??The review of systems data was entered by the nurse and reviewed by me ? There are no exam notes on file for this visit. ? PHYSICAL EXAMINATION: ? General: ?The patient is 83 year old male, well nourished, well hydrated in no acute distress. ?The patient is oriented to time, place, and person. ? VITALS:?Blood pressure 122/60, pulse 75, weight 75.9 kg (167 lb 6.4 oz), SpO2 95 %.?Body mass index is 27.86 kg/m?.? ? HEENT: ?Normal cephalic, ataumatic, pupils are equally round, sclera are anicteric, mucous membranes are moist, oropharynx is clear. ?Neck has no masses, asymmetry or lymphadenopathy. ?Thyroid is unremarkable. ? Respiratory: ?Clear to auscultation with dullness at less than one third?base of the right field on percussion. ?Normal respiratory excursion and pattern. ? Cardiac: ?Examination is regular rate and rhythm. ? Abdominal exam: ?Soft, nontender, ?with no palpable masses. ?No hepatosplenomegaly. ?No palpable hernias. ? Rectal exam: ?exam deferred ? Extremities: ?no clubbing, cyanosis or edema. ?No adenopathy. ? Other: ? ? LABORATORY VALUES: As Noted ? RADIOLOGIC STUDIES: ?As Noted ? Assessment ? IMPRESSION: ?Likely transitive right pleural fluid secondary to right-sided heart failure ? PLAN: ??I plan to perform a tunnelled right thoracic catheter or Pleurex catheter placement. ?The planned surgical procedure was discussed extensively with the patient. ?The risks, benefits, anticipated outcomes and possible complications were mentioned. ?My staff has also explained the procedure in understandable terms and the patient was given the option to take printed material concerning the planned procedure. ?The patient had the opportunity to ask questions concerning the planned procedure. ?The patient freely consents to the planned procedure. ? Cardiology is comfortable holding his Coumadin for 3-4 days. ?His INR today on a stable Coumadin dose was 1.5. ?I will have him hold his Coumadin starting Wednesday for the planned procedure on Wednesday. ? Anticipated Surgical Procedure/ CPT Code:?47751 - Insertion of Tunnelled Pleural Catheter - Right and 53365 - Ultrasound Guidance for Needle Placement ? Anticipated Anesthetic:?MAC with local ? Patient weight:??Blood pressure 122/60, pulse 75, weight 75.9 kg (167 lb 6.4 oz), SpO2 95 %.?BMI: ?Body mass index is 27.86 kg/m?. ? Planned antibiotic:?clindamycin 900mg IVPB manager transmission to OR ? SCDs needed -?Yes ? Tactical Debriefer Officer Needed -?No ?? ? Diagnoses:?(J90) Pleural effusion ?(primary encounter diagnosis) ? Tyrell Santizo MD
[2019-02-15] VITALS (13 sets, daily range): BP systolic 82–118; BP diastolic 44–75; PULSE 56–76; RESP 11–18; TEMP 36.1–37.2; O2SAT 94–100; BMI 27.4
[2019-02-15 07:26] LABS: Prothrombin Time Fingerstick 15.8 SEC (11.9-14.4)
[2019-02-15] MEDS: Bupivacaine Mpf 0.5% 30 ML VIAL (08:31)
--- NOTE | 2019-02-15 08:59 | PCM.OPRPT ---
Report of Operation Date of Procedure: 02/15/19 Pre-Operative Diagnosis: right recurrent pleural effusion Post-Operative Diagnosis: right recurrent pleural effusion Surgery/Procedure Performed:: right tunneled pleural catheter (pleurex) with ultrasound guidance shipper and receiving: None Type of Anesthesia:: Local MAC Anesthesiologist: Steve Monique ASA3 Specimen's removed: pleural fluid Drains: right pleural drain Estimated Blood Loss (mL): minimal Fluids Replaced: 350 Description of Procedure: The patient was brought to the operating suite. The right chest site was marked in the holding area and the patient concurred this was the planned operative site. Sign was performed verifying patient, site, position, skip antibiotic prophylaxis-2 g of Ancef and DVT prophylaxis with SCDs. Ultrasound was used to evaluate the right thoracic space and pleural fluid was noted to be at the planned site which was marked on the skin Following IV sedation, left/right chest and upper lateral abdomen were prepped and draped in the usual fashion. Timeout was performed verifying patient, site, position. Local anesthetic was injected and a Seldinger needle was used to access the left/right pleural space without difficulty. a guidewire was inserted and advanced into the pleural space. Local anesthetic was injected and incision made for the catheter exit site. Next the catheter was tunneled from the skin exit site to the wire. Dilators were placed over the wire until the largest dilator with introducer sheath were placed. The wire and dilator removed. The catheter was fed through the introducer suture sheath and adjusted to the edge of the pleural surface with the fenestrations . There was good return of pleural fluid. The Pleurx catheter was affixed to an adapter and attached to a Pleur-evac at 20 cm suction. A total of approximately 1000 cc of fluid was drained. The catheter was secured with a 3-0 silk suture at the skin exit site. The thoracic site. Skin was closed with 4-0 Biosyn interrupted subcuticular sutures. Dermabond was applied to the thoracic site. A dressing was applied. The joints were taped and a large dressing placed over the drain exit site. The patient was brought to recovery room in stable condition with plans for a postprocedure chest x-ray. - Admit VTE Documentation VTE Present on Admission: No
--- NOTE | 2019-02-15 09:10 | RAD_ITS ---
STUDY: X-RAY CHEST REASON FOR EXAM: Male, 83 years old. Post paracentesis TECHNIQUE: Single AP portable view of the chest. COMPARISON: January 30, 2019 FINDINGS: There appears to be placement of a small right chest tube. Continued right lower lobe airspace disease with small effusion, decreased as compared to prior. Left lung is essentially clear. No pneumothorax. No evidence of central line. There is mild cardiac enlargement. Normal mediastinum and monalisa. Normal visualized pulmonary arteries. Normal visualized aortic arch and descending thoracic aorta. There are diffuse degenerative changes of the visualized thoracic spine. Normal visualized ribs, clavicles, and shoulders. There is no demonstrated abnormality of the visualized soft tissue structures of the upper abdomen. RAD/Chest 1 View (Portable) IMPRESSION: Continued right lower lobe airspace disease with small effusion, decreased as compared to prior. Appearance of placement of a right chest tube. No evidence of pneumothorax. Stable cardiomegaly. No evidence of central line placement. Electronically Signed: Juan Quintero DO at 10:12 EDT Tel , Service support ,
--- NOTE | 2019-02-15 10:39 | CASEMGMT ---
Patient has a Healthcare POA and Healthcare LW on file at [facility]. His is his POA. Camila JANG MSW
[2019-02-15] MEDS: Lactated Ringers 1,000 ML 42 ML IV ×2 (12:41→14:19)
[2019-02-15] MEDS: Furosemide 20 MG Tablet 60 MG PO ×2 (12:42→16:30)
[2019-02-15] MEDS: Magnesium Oxide 400 MG Tablet PO (12:43)
[2019-02-15] MEDS: Loratadine 10 MG Tablet PO (16:29)
[2019-02-15] MEDS: Dicyclomine 10 MG Capsule PO (16:29)
[2019-02-15] MEDS: Tamsulosin HCl 0.4 MG Capsule PO (16:30)
[2019-02-15] MEDS: Galantamine Hydrobromide 4 MG Tablet PO (16:30)
[2019-02-15] MEDS: Aspirin 81 MG TAB.CHEW PO (21:22)
[2019-02-15] MEDS: Amiodarone 200 MG Tablet PO (21:23)
[2019-02-15] MEDS: amLODIPine 5 MG Tablet PO (21:23)
[2019-02-15] MEDS: Carvedilol 6.25 MG Tablet PO (21:23)
[2019-02-16 01:26] VITALS: BP 104/69; PULSE 73; RESP 10; TEMP 37.1; O2SAT 98
--- NOTE | 2019-02-16 05:00 | RAD_ITS ---
STUDY: X-RAY CHEST REASON FOR EXAM: Male, 83 years old. Pleural effusion TECHNIQUE: Single frontal view of the chest. COMPARISON: 02/15/2019 FINDINGS: Improving right basilar alveolar disease and right pleural fluid. Normal size heart. Normal mediastinum and monalisa. Normal visualized pulmonary arteries. There is atherosclerotic tortuosity of the aortic arch and descending thoracic aorta. Normal visualized thoracic spine. Right shoulder arthroplasty. Degenerative left shoulder change. There is no demonstrated abnormality of the visualized soft tissue structures of the upper abdomen. RAD/Chest 1 View (Portable) IMPRESSION: Improving right basilar alveolar disease and right pleural fluid. Electronically Signed: Kip Leon MD at 7:48 EDT Tel , Service support ,
[2019-02-16 05:15] VITALS: BP 108/66; PULSE 78; RESP 18; TEMP 36.8; O2SAT 99
--- NOTE | 2019-02-16 08:12 | DS.PCM_ITS ---
Discharge Date and Diagnosis Date of Admission: 02/15/19 Date of Discharge: 02/16/19 - Primary Discharge Diagnosis right pleural effusion - Secondary Discharge Diagnosis Chronic Problems (Last Reviewed 02/15/19 @ 10:27 by Janina Nunez) Valvular heart disease (Chronic) Nonrheumatic mitral (valve) insufficiency (Chronic) Non-rheumatic tricuspid valve insufficiency (Chronic) Non-rheumatic aortic stenosis (Chronic) History of left heart catheterization (Chronic ~01/2014) 05/02/[address] Robertson [facility]; 01/29/[address] Porter at [facility]: coronaries angiographically normal, pulmonary htn by RV eval, EF at that time was 45-50% History of pleural effusion (Chronic) 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 (Chronic) long term care pharmacist current use of 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) Hypertension (Chronic) Chronic renal failure, stage 3 (moderate) (Chronic) History of anxiety disorder (Chronic) Generalized osteoarthritis (Chronic) History of gout (Chronic) Mild dementia (Chronic) Rheumatoid arthritis (Chronic) Diabetes mellitus, type II (Chronic) Generalized weakness (Chronic) History of prostate cancer (Chronic) Status post radiotherapy Anemia of chronic disease (Chronic) due to CRF and RA PAF (paroxysmal atrial fibrillation) (Chronic) Hospital Course and Treatment Imaging Results: 02/16/19 05:00 CXR [Chest 1 View (Portable)] [RAD] Routine Operations: None, - - tunnel Pleurx catheter placement Summary of Care Provided: The patient is a 83 year old M with a recurrent right-sided transit of pleural effusion. His Coumadin was held and was brought in and underwent right-sided tunnel Pleurx catheter placement. He had a total of approximately 3 L of fluid drained from the chest overnight. The Pleurx catheter was disconnected and dressed and the patient was ready for discharge to home on postoperative day 1. He is instructed to restart his Coumadin. If he has any issues shortness of breath he is to contact the office or return to the ER but otherwise return to the office on Wednesday for drainage of the Pleurx catheter. - Physical Exam General: Alert, Oriented x3, Cooperative Lungs: Clear to auscultation, Normal air movement Cardiovascular: Regular rate, No murmurs Vital Signs Temp Pulse Resp BP Pulse Ox 98.2 F 78 18 108/66 99 02/16/19 05:15 02/16/19 05:15 02/16/19 05:15 02/16/19 05:15 02/16/19 05:15 Oxygen Delivery Method CPAP Weight: 74.75 kg Body Mass Index (BMI) 27.4 Intake and Output for Last 24 Hours 02/14/19 02/15/19 02/16/19 23:59 23:59 23:59 Intake Total 2169 / 2169 448 / 448 Output Total 4040 / 4040 175 / 175 Balance -1871 / -1871 273 / 273 Discharge Diet: No Restrictions Home Medications: Medications to take at Discharge Cholecalciferol (Vitamin D3) [Vitamin D3] 1,000 unit PO DAILY 12/25/13 Aspirin [Aspirin, Baby] 81 mg PO QHS 11/17/14 Cyanocobalamin [Vitamin B12] 1,000 mcg PO DAILY@0800 11/17/14 Pantoprazole Sodium [Protonix] 40 mg PO DAILY 11/17/14 Dicyclomine HCl [Bentyl] 10 mg PO DINNER 03/15/17 Loratadine 10 mg PO DINNER 03/15/17 magnesium oxide 400 mg (241.3 mg magnesium) tablet 400 mg PO LUNCH 12/30/17 Amlodipine [Norvasc] 5 mg PO QHS 12/20/18 Ascorbic Acid [Vitamin C] 1,000 mg PO DAILY 12/20/18 Galantamine HBr 8 mg PO DAILY 12/20/18 Tamsulosin HCl [Flomax] 0.4 mg PO DINNER 12/20/18 Furosemide [Lasix] 60 mg PO BID@1000,1800 #180 tab 12/23/18 warfarin 2 mg tablet 1 mg PO QODAY tab 12/27/18 warfarin 2 mg tablet 2 mg PO QODAY 12/27/18 ferrous sulfate 325 mg (65 mg iron) tablet 325 mg PO DAILY tab 01/02/19 lisinopril 40 mg tablet 20 mg PO DAILY tab 01/02/19 Calcium Carbonate [Calcium] 600 mg PO DAILY 01/26/19 Amiodarone HCl [Cordarone] 200 mg PO QHS 02/08/19 Carvedilol [Coreg (Beta Hemant)] 6.25 mg PO BID 02/08/19 Primary Care Physician: Pedro Marie MD [Primary Care Provider] - Medical Necessity - Tobacco Use Smoking Status: Never smoker Meaningful Use Info Meaningful Use Diagnoses (Choose all that apply): None applicable
--- NOTE | 2019-02-16 08:13 | DCINST_ITS ---
You will use the following diet at home:: No restrictions Call your doctor if your incision/area has: Continuous Slow Oozing, Increased P ain/ Swelling, Increased Redness, Foul Smelling Discharge Additional Dressing/Incision Instructions:: He is instructed to restart his Coumadin. If he has any issues shortness of breath he is to contact the office or return to the ER but otherwise return to the office on Wednesday for drainage of the Pleurx catheter. Allergies/Adverse Reactions: Allergies cimetidine HCl [From Tagamet] Allergy (Verified 02/15/19 10:27) Rash ciprofloxacin [From Cipro] Allergy (Verified 02/15/19 10:27) Rash amoxicillin trihydrate [From Augmentin] Adverse Reaction (Verified 02/15/19 10:27) Abd cramps/diarrhea cefdinir [From Omnicef] Adverse Reaction (Verified 02/15/19 10:27) Diarrhea indomethacin sodium [From Indocin] Adverse Reaction (Verified 02/15/19 10:27) Nausea memantine HCl [From Namenda] Adverse Reaction (Verified 02/15/19 10:27) dizziness potassium clavulanate [From Augmentin] Adverse Reaction (Verified 02/15/19 10:27) Abd cramps/diarrhea sitagliptin phosphate [From Januvia] Adverse Reaction (Verified 02/15/19 10:27) Nausea Medications to take at Discharge Cholecalciferol (Vitamin D3) [Vitamin D3] 1,000 unit PO DAILY 12/25/13 Aspirin [Aspirin, Baby] 81 mg PO QHS 11/17/14 Cyanocobalamin [Vitamin B12] 1,000 mcg PO DAILY@0800 11/17/14 Pantoprazole Sodium [Protonix] 40 mg PO DAILY 11/17/14 Dicyclomine HCl [Bentyl] 10 mg PO DINNER 03/15/17 Loratadine 10 mg PO DINNER 03/15/17 magnesium oxide 400 mg (241.3 mg magnesium) tablet 400 mg PO LUNCH 12/30/17 Amlodipine [Norvasc] 5 mg PO QHS 12/20/18 Ascorbic Acid [Vitamin C] 1,000 mg PO DAILY 12/20/18 Galantamine HBr 8 mg PO DAILY 12/20/18 Tamsulosin HCl [Flomax] 0.4 mg PO DINNER 12/20/18 Furosemide [Lasix] 60 mg PO BID@1000,1800 #180 tab 12/23/18 warfarin 2 mg tablet 1 mg PO QODAY tab 12/27/18 warfarin 2 mg tablet 2 mg PO QODAY 12/27/18 ferrous sulfate 325 mg (65 mg iron) tablet 325 mg PO DAILY tab 01/02/19 lisinopril 40 mg tablet 20 mg PO DAILY tab 01/02/19 Calcium Carbonate [Calcium] 600 mg PO DAILY 01/26/19 Amiodarone HCl [Cordarone] 200 mg PO QHS 02/08/19 Carvedilol [Coreg (Beta Hemant)] 6.25 mg PO BID 02/08/19 Primary Care Physician: Pedro Marie MD [Primary Care Provider] - Test Results: Test results from this visit will be discussed in further detail at your follow- up appointment, if applicable. Please Follow Up With: Tyrell Santizo MD When: Wednesday
[2019-02-16 08:54] VITALS: BP 110/58; PULSE 90; RESP 18; TEMP 36.6; O2SAT 97
[2019-02-16] MEDS: Galantamine Hydrobromide 4 MG Tablet PO (08:56)
[2019-02-16] MEDS: Furosemide 20 MG Tablet 60 MG PO (08:56)
[2019-02-16] MEDS: Lisinopril 20 MG Tablet PO (08:57)
[2019-02-16] MEDS: Carvedilol 6.25 MG Tablet PO (08:57)
[2019-02-16] MEDS: Pantoprazole Sodium 40 MG Tablet PO (08:57)
[2019-02-16] MEDS: Calcium Carbonate 500 MG Tablet PO (08:57)
--- NOTE | 2019-02-16 09:55 | CASEMGMT ---
This [facility] spoke with Blanca from [facility] and she is aware that pt will be discharged today and she states that resumption order is not necessary d/t SDC status. Princess SORIA CM
== END 2019-02-16 08:07 | disposition home or self-care (01) ==
LOC: SDC 07:04 → AC 07:05 → PCU 10:07
PROVIDERS: Family Provider Family Medicine; PCP Family Medicine; Referring Provider Surgery; Visit Provider Surgery
PROC: (CPT 32550; principal; 2019-02-15 07:45)
DX: J90 Pleural effusion, not elsewhere classified (principal); K21.9 Gastro-esophageal reflux disease without esophagitis; D64.9 Anemia, unspecified; Z85.46 Personal history of malignant neoplasm of prostate; F32.9 Major depressive disorder, single episode, unspecified; I48.0 Paroxysmal atrial fibrillation; I11.0 Hypertensive heart disease with heart failure; I50.32 Chronic diastolic (congestive) heart failure; I27.20 Pulmonary hypertension, unspecified; G47.30 Sleep apnea, unspecified; M46.90 Unspecified inflammatory spondylopathy, site unspecified; Z79.84 Long term (current) use of oral hypoglycemic drugs; Z79.01 Long term (current) use of anticoagulants; Z79.51 Long term (current) use of inhaled steroids; Z79.82 Long term (current) use of aspirin; Z79.899 Other long term (current) drug therapy
CPT/HCPCS: 32550; 36416; 71045; 85610; J7120; A4216; C1729; J2405

== ENCOUNTER → 2019-02-23 16:52 | Outpatient (CLI) | payer MEDICARE, SELFPAY ==
[2019-02-15 10:16] VITALS: BMI 27.4
[2019-02-23 17:34] LABS: Hematocrit 41.4 % (40-54); Mean Corp Hgb Conc 31.4 g/gl (32-36); Mean Corpuscular Hgb 26.7 pg (27.0-32.0); Mean Platelet Vol. 9.6 fl (6.2-12.0); Platelet Count 153 K/mm3 (150-450); RBC Distribution Width CV 18.7 % (11.6-14.6); RBC Distribution Width SD 58.4 fl (35.1-43.9); Red Blood Count 4.87 M/mm3 (4.6-6.2)
[2019-02-23 17:35] LABS: Scan Indicated on CBC? Y/N NO
[2019-02-23 18:00] LABS: Anion Gap 7 (5-15); BUN 29 mg/dL (7-18); BUN/Creat Ratio 15.8 RATIO (10-20); Calcium,Total 8.5 mg/dL (8.5-10.1); Chloride 103 mmol/L (98-107); Creatinine, Serum 1.83 mg/dL (0.70-1.30); EST Glomerular Filtration Rate 38 mL/min (>60); Est Glom Filt Rate - Afr Amer 46 mL/min (>60); Glucose 109 mg/dL (74-106); Potassium 4.3 mmol/L (3.5-5.1); Sodium Level 142 mmol/L (136-145)
== END ==
PROVIDERS: Family Provider Family Medicine; PCP Family Medicine; Referring Provider Family Medicine; Visit Provider Urology
DX: N47.1 Phimosis (principal)
CPT/HCPCS: 36415; 80048; 85027

== ENCOUNTER 2019-03-10 07:39 | Day surgery (SDC) | payer MEDICARE, SELFPAY ==
[2019-02-15 10:16] VITALS: BMI 27.4
[2019-03-03 11:39] VITALS: BMI 27.1
--- NOTE | 2019-03-03 12:15 | HP_ITS ---
HPI [facility] Surgical H&P: Yes Details: Details: [facility] Mr Elmore is a very pleasant 83-year-old mildly demented, diabetic gentleman with a history of hypertension, diastolic heart failure, status post left pleural effusion with thoracentesis several years ago. At that time he apparently saw Dr. Robertson in consultation. At that time he performed a left heart catheterization. Patient had relatively normal coronary arteries, and normal LV function. Patient returned recently to [facility] with shortness of breath. He was found to be in atrial fibrillation, and was found to have a significant right- sided pleural effusion. Patient underwent a right-sided thoracentesis and removed approximately 2 L of fluid. He then underwent left heart catheterization by ok on 01/29/14. At that time he was found to have relatively normal coronary arteries, and his LV function was approximate 45-50%. His RV pressure was 44, and his RV sat was 66%. We were unable to cannulate into the pulmonary tree due to his enlarged right side of his heart. Patient underwent subsequent DC cardioversion on 03/17/14. Several visits ago, he developed a syncopal episode while sitting in a chair at a judaism event. According to the , the patient has been tired and weak during that morning time, sat down in a chair, and when she brought him his meal basically tilted his head forward and had a syncopal episode. He had no seizure activity. According to the he was unconscious for pr 5 minutes time. He spontaneously awoke, Moved all 4 extremities and was completely lucid. He was brought to [facility] ER where he was seen by hospitalist. An echocardiogram that day demonstrated preserved LV function with an EF of 60%. His Lasix was discontinued, however does not appear that it was discontinued upon discharge. Patient had recurrent atrial fibrillation was treated with amiodarone. He recently underwent repeat cardioversion on 02/21/15 which was successful. The patient has significant memory issues and dementia, but unfortunately was unable to tolerate Namenda due to its interaction with Coreg. He walks fairly slowly. He has had no further pleural effusions to his knowledge. A chest x- ray done 12/02/15 demonstrated by basilar atelectasis and blunting of both costophrenic angles. Patient recently has had dyspnea on exertion and shortness of breath with walking. It is unclear whether he has any angina as it is difficult to get a history given his dementia. He had a stress test done in December 2017 which was a non-walking nuclear stress test, which was negative for inducible ischemia. PFTs in 2016 were normal. Patient was recently readmitted for yet another right-sided pleural effusion and this time underwent a Pleurx catheter placement by Dr. Pastrana on 02/21/19. Initially he had 2 L removed, and has had between 405 100 cc removed every other day per the patient's . The patient occasionally gets atypical nonexertional pleuritic type chest pain since implantation of his Pleurx catheter. Patient also complains of intermittent lightheadedness and dizziness with standing up. In our office today his blood pressure is 100/60, and pulse is 68 and regular. His physical exam shows pleuritic-type rub on the right side, positive egophony about one [address] the way up on the right side, left side is clear to auscultation. Cardiac exam is irregularly irregular. He has no edema. His lipids as of 02/12/16 show An LDL of 112, and an HDL of 34. Repeat lipids as of 12/26/18 show an LDL of 90 and HDL 32 Intake Vital Signs 03/03/19 Height 5 ft 5 in 03/03/19 Weight: 163 lb 03/03/19 Body Mass Index (BMI) 27.1 03/03/19 Blood Pressure 100/60 03/03/19 Blood Pressure Location Lt brachial 03/03/19 Blood Pressure Position Sitting 03/03/19 Respiratory Rate 20 H 03/03/19 Pulse Rate 68 03/03/19 Pulse Source Auscultation Intake Visit Reasons: 6 M Beet Flumer Required: No Accompanied by: Is patient in pain?: No Allergies cimetidine HCl [From Tagamet] Allergy (Verified 03/03/19 11:50) Rash ciprofloxacin [From Cipro] Allergy (Verified 03/03/19 11:50) Rash amoxicillin trihydrate [From Augmentin] Adverse Reaction (Verified 03/03/19 11:50) Abd cramps/diarrhea cefdinir [From Omnicef] Adverse Reaction (Verified 03/03/19 11:50) Diarrhea indomethacin sodium [From Indocin] Adverse Reaction (Verified 03/03/19 11:50) Nausea memantine HCl [From Namenda] Adverse Reaction (Verified 03/03/19 11:50) dizziness potassium clavulanate [From Augmentin] Adverse Reaction (Verified 03/03/19 11:50) Abd cramps/diarrhea sitagliptin phosphate [From Januvia] Adverse Reaction (Verified 03/03/19 11:50) Nausea Medications Cholecalciferol (Vitamin D3) [Vitamin D3] 1,000 unit PO DAILY 12/25/13 [History Confirmed 03/03/19] Aspirin [Aspirin, Baby] 81 mg PO QHS 11/17/14 [History Confirmed 03/03/19] Cyanocobalamin [Vitamin B12] 1,000 mcg PO DAILY@0800 11/17/14 [History Confirmed 03/03/19] Pantoprazole Sodium [Protonix] 40 mg PO DAILY 11/17/14 [History Confirmed 03/03/19] Dicyclomine HCl [Bentyl] 10 mg PO DINNER 03/15/17 [History Confirmed 03/03/19] Loratadine 10 mg PO DINNER 03/15/17 [History Confirmed 03/03/19] magnesium oxide 400 mg (241.3 mg magnesium) tablet 400 mg PO LUNCH 12/30/17 [History Confirmed 03/03/19] Ascorbic Acid [Vitamin C] 1,000 mg PO DAILY 12/20/18 [History Confirmed 03/03/19] Galantamine HBr 8 mg PO DAILY 12/20/18 [History Confirmed 03/03/19] Tamsulosin HCl [Flomax] 0.4 mg PO DINNER 12/20/18 [History Confirmed 03/03/19] Furosemide [Lasix] 60 mg PO BID@1000,1800 #180 tab 12/23/18 [Rx Confirmed 03/03/19] warfarin 2 mg tablet 1 mg PO QODAY tab 12/27/18 [History Confirmed 03/03/19] warfarin 2 mg tablet 2 mg PO QODAY 12/27/18 [History Confirmed 03/03/19] ferrous sulfate 325 mg (65 mg iron) tablet 325 mg PO DAILY tab 01/02/19 [History Confirmed 03/03/19] lisinopril 40 mg tablet 20 mg PO DAILY tab 01/02/19 [History Confirmed 03/03/19] Calcium Carbonate [Calcium] 600 mg PO DAILY 01/26/19 [History Confirmed 03/03/19] Amiodarone HCl [Cordarone] 200 mg PO QHS 02/08/19 [History Confirmed 03/03/19] carvedilol 6.25 mg tablet 6.25 mg PO BID #180 tab 03/03/19 [Rx Confirmed 03/03/19] [facility] Medical History Nonrheumatic mitral (valve) insufficiency (Chronic) Non-rheumatic tricuspid valve insufficiency (Chronic) Non-rheumatic aortic stenosis (Chronic) Chronic diastolic (congestive) heart failure (Acute) History of pleural effusion (Chronic) 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 (Chronic) correction current use of 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) Hypertension (Chronic) Chronic renal failure, stage 3 (moderate) (Chronic) History of anxiety disorder (Chronic) Generalized osteoarthritis (Chronic) History of gout (Chronic) Mild dementia (Chronic) Rheumatoid arthritis (Chronic) Diabetes mellitus, type II (Chronic) History of prostate cancer (Chronic) Anemia of chronic disease (Chronic) PAF (paroxysmal atrial fibrillation) (Chronic) Syncope and collapse (Chronic) Surgical History Recurrent right pleural effusion (Acute 02/15/19) History of left heart catheterization (Chronic ~01/2014) History of bilateral inguinal hernia repair (Resolved) History of cholecystectomy (Resolved ~1989) History of left knee replacement (Resolved) History of right shoulder replacement (Resolved) History of tonsillectomy (Resolved) Family History Father , of [place] CAD (coronary artery disease) Myocardial infarction Brother Diabetes Social History Smoking Status: Never smoker alcohol intake: never caffeine: Yes Type: coffee Number of servings: 1 ROS Const Const: Positive for other (Had Pleurex cath placed 02/21/19. Having surgery 03/10/per Dr. Bermudez.); negative for fatigue, weakness, body ache, fever(s), headache(s), chills, frequent falls, night sweats, daytime sleepiness, difficulty sleeping, excessive sweating, weight gain, weight loss, increased appetite, poor appetite or anorexia Eyes Eyes: Negative for blind spots, loss of peripheral vision, transient loss of vision, blurry vision, change in vision, double vision, floaters, tunnel vision or other ENT ENT: Negative for headache(s), dizziness, hearing loss, tinnitus, Nosebleed/epistaxis, balance problems, post nasal drip, lip swelling, tongue swelling, bleeding gums, hoarseness, neck pain, dry mouth or other Cardio Chest Pain: Yes (Midsternal, lasting 1-2 minutes, 3 to 4 times a day. Sometimes left arm) Frequency: more than once a day Character: tightness, squeezing Onset: at rest, exercise Location: mid sternal Duration: minutes Palpitations: No Edema: None Muscle aches with walking: None Resp Respiratory: Negative for SOB with activity, SOB at rest, SOB orthopnea\SOB lying down, Coughing up blood/hemoptysis, chest congestion, pain on inspiration, snoring, stridor, wheezing, crackles, paroxysmal nocturnal dyspnea or other GI GI: Negative nausea, vomiting, heartburn, constipation, belching, bloating, cramping, vomiting blood/hematemesis, bright, red blood in stools, black,tarry stools, loose stools, Difficulty Swallowing or other : Negative for hematuria, frequent nighttime urination/ nocturia, erectile dysfunction or abnormal vaginal bleeding Musc Musc: Negative for muscle aches/ myalgia, muscle weakness, joint pain or balance problems Skin Skin: Negative redness, non-healing lesions, rash, unusual bruising, skin ulcer, wounds, jaundice or other Neuro Neuro: Negative for dizziness, lightheadedness, near syncope, syncope, orthostatic symptoms, frequent falls, headache(s), weakness, confusion, memory loss, restless legs, blurry vision, double vision, vertigo, seizures, lack of coordination or other Rolly Hematologic/Lymphatic: Negative for easy bleeding, easy bruising, enlarged lymph nodes or other Endo Endo: Negative for fatigue, cold intolerance, heat intolerance, excessive sweating, flushing, increased thirst/drinking, increased hunger, hair loss, hair growth or other Psych Psych: Negative for anxiety, depression, thoughts of harming anyone, thoughts of harming yourself, visual hallucinations, panic attacks or audible hallucinations Allergy Allergy/Immunology: Negative for throat swelling, Negative for tongue swelling, Negative for hives, Negative for rash, Negative for lip swelling Cardiology Exam Const Appearance: cooperative, healthy appearing and no acute distress Nutritional Appearance: well nourished Orientation: alert, oriented x3 and oriented to person Head Head: normal to inspection, normocephalic and atraumatic Nose: external nose normal Face and Sinus: face symmetric Mouth: oral mucosae normal Eyes General: appearance normal, both eyes and all related structures Eyelids: eyelids normal Conjunctivae: conjunctivae normal Pupils: PERRL and normal by confrontation EOM: EOM intact bilaterally Neck Neck: normal visual inspection and full ROM Carotids: normal carotid upstroke Chest Chest inspection: normal inspection of the chest Auscultation: Left: Clear to Auscultation, Right: Diminished Base, Dullness to Percussion, Other Cardio Palpation: normal PMI Rate: regular rate Rhythm: irregular rhythm Heart sounds: S2 normal Murmur: Grade 2/6 and holosystolic GI GI: normal to inspection, no hepatosplenomegaly and bowel sounds present Neuro General: alert, awake, oriented x3, CN's II-XI intact bilaterally and moves all extremities Skin Skin: no rashes or lesions noted Extremities Pulses: Normal: Right Femoral Pulse, Left Femoral Pulse, Right Dorsalis Pedis Pulse, Left Dorsalis Pedis Pulse, Right Posterior Tibial Pulse, Left Posterior Tibial Pulse, Right Radial Pulse, Left Radial Pulse Lower Extremity Edema: None: Bilateral Psych Psychological: normal affect Assessment & Plan 1. Recurrent right pleural effusion J90 Placement of right tunneled pleural catheter (pleurex) with ultrasound guidance per Dr. Santizo 02/15/2019 Plan 1. Recurrent right pleural effusion: The patient is status post Pleurx catheter, with intermittent drainage between 405 100 cc every other day. I recommend this continue until he has no further pleural drainage. This may take several weeks. In addition he will continue his Lasix, and we will discontinue his amlodipine given his positional lightheadedness, dizziness, and hypotension today. He has had no fevers or chills. Patient may continue to have atypical pleuritic type pain as scar formation occurs inside his pleural space. If this Pleurx catheter is unsuccessful, the patient may require a pleurodesis. His pleural effusion is most likely a combination of atrial fibrillation, pulmonary hypertension, diastolic dysfunction. 2. Paroxysmal atrial fibrillation I48.0 Plan 2. Paroxysmal atrial fibrillation: The patient is currently in an out of atrial fibrillation per the patient's . He continues amiodarone and Coreg therapy. His Coreg was increased to 6.25 mg twice a day as he was only taking it once a day at home. He will continue warfarin therapy. This will need to be held for his upcoming circumcision. The patient is at low risk for noncardiac surgery and may proceed with a circumcision with Dr. Briggs next week. 3. 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 Plan 3. Pulmonary hypertension: Again the patient's pulmonary hypertension is a combination of factors including atrial fibrillation, age, diastolic dysfunction, and valvular insufficiency. Patient may require pleurodesis if his Pleurx catheter is not successful. Patient has arrangements to see Dr. Pastrana in the very near future. 4. Return office in 4 months with myself or an CLINICAL NURSE. This note was generated using a voice recognition system and there may be incorrect words, spelling or punctuation that were not noted when reviewing the office note prior to saving. Plan Detail Other Medications New: carvedilol 6.25 mg PO BID 180 tabs 3RF HEART Follow Up +4M (Porter or CLINICAL NURSE) Coding Level of Care Code Off vis,est,level 3 Diagnoses Recurrent right pleural effusion J90 Paroxysmal atrial fibrillation I48.0 ??Atrial fibrillation type: paroxysmal 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 Coding Level of Care Code Off vis,est,level 3 Diagnoses Recurrent right pleural effusion J90 Paroxysmal atrial fibrillation I48.0 ??Atrial fibrillation type: paroxysmal 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 Supplemental Info Supplemental Information Labs LDL Cholesterol 90 mg/dL (0-130) 12/26/18 HDL Cholesterol 32 mg/dL (40-) L 12/26/18 Triglycerides 112 mg/dL (-199) 12/26/18 VLDL Cholesterol 22 mg/dL (5-40) 12/26/18 Diagnostics Electrocardiogram 01/26/19 Echocardiogram 12/20/18 Stress Test Nuclear Medicine 01/06/18 Stress Test 01/06/18 Abdomen Ultrasound 04/01/18 Chest X-Ray 02/16/19 Pulmonary Pulmonary Function Test 02/21/16
[2019-03-10 08:41] VITALS: BP 103/62; PULSE 74; RESP 16; TEMP 36.3; O2SAT 98; BMI 26.5
[2019-03-10 09:05] LABS: Bedside Glucose 130 mg/dL (70-110)
[2019-03-10 09:31] LABS: Prothrombin Time Fingerstick 14.5 SEC (11.9-14.4)
--- NOTE | 2019-03-10 09:45 | FOR_PTH ---
PATIENT: IVAN STANLEY LOC: [facility] [place] U#:[id number] AGE/SX: 83/M ROOM: RE03/10/[address]: Dr. Ezra Bermudez MD : [id number] BED: DIS: 03/10/2019 SPEC #: [id number] RECD: 03/10/19 12:13 STATUS: MARLI DAJA #: [id number] DEBORAH: 03/10/19 09:[address]: Ezra Bermudez DEPT: SURGICAL PATHOLOGY RECD BY: Buck Nova ENTERED: 03/10/19 12:38 SP TYPE: FORESKIN OTHR DR: Dr. Pedro Marie MD Tissues: Skin of foreskin, NOS Procedures: Surgery Specimen Level III HEADER OPERATION: Cysto, circumcision PRE-OP DIAGNOSIS: BPH, frequency of micturition, phimosis TISSUE SUBMITTED: Foreskin MICROSCOPIC DIAGNOSIS Foreskin: Pieces of skin with underlying tissue with focal ulceration and associated acute inflammation. 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 KARON:jose 03/13/19 MICROSCOPIC DESCRIPTION Slides are reviewed. GROSS DESCRIPTION Received in fixative is one container labeled with the patient's name and designated foreskin. The specimen consists of two pieces of wrinkled skin measuring 4 x 3.5 x 1 cm. A focal area of ulceration is noted. No mass lesion is identified. Building Mover sections are submitted in one cassette. / KARON:jose 03/10/19 TC:3 CPT: 53900
[2019-03-10] MEDS: Cefazolin 2 GM in 0.9% Normal Saline 100 ML IV (09:49)
[2019-03-10] MEDS: Bupivacaine Mpf 0.5% 30 ML VIAL (10:30)
--- NOTE | 2019-03-10 10:39 | DCINST_ITS ---
Discharge Diet: Light diet - advance as tolerated Discharge Activity: Return to Normal Activity, May Shower May shower in (days): 1 Call your doctor if your incision/area has: Continuous Slow Oozing, Sudden Increased Bleeding, Increased Pain/ Swelling, Increased Redness, Foul Smelling D ischarge, Swelling at the incision site Instructions: Discharge Instructions for Circumcision Allergies/Adverse Reactions: Allergies cimetidine HCl [From Tagamet] Allergy (Verified 03/06/19 11:02) Rash ciprofloxacin [From Cipro] Allergy (Verified 03/06/19 11:02) Rash amoxicillin trihydrate [From Augmentin] Adverse Reaction (Verified 03/06/19 1 1:02) Abd cramps/diarrhea cefdinir [From Omnicef] Adverse Reaction (Verified 03/06/19 11:02) Diarrhea indomethacin sodium [From Indocin] Adverse Reaction (Verified 03/06/19 11:02) Nausea memantine HCl [From Namenda] Adverse Reaction (Verified 03/06/19 11:02) dizziness potassium clavulanate [From Augmentin] Adverse Reaction (Verified 03/06/19 11:02) Abd cramps/diarrhea sitagliptin phosphate [From Januvia] Adverse Reaction (Verified 03/06/19 11:02) Nausea Medications to take at Discharge Cholecalciferol (Vitamin D3) [Vitamin D3] 1,000 unit PO DAILY 12/25/13 Aspirin [Aspirin, Baby] 81 mg PO QHS 11/17/14 Cyanocobalamin [Vitamin B12] 1,000 mcg PO DAILY@0800 11/17/14 Pantoprazole Sodium [Protonix] 40 mg PO DAILY 11/17/14 Dicyclomine HCl [Bentyl] 10 mg PO DINNER 03/15/17 Loratadine 10 mg PO DINNER PRN 03/15/17 magnesium oxide 400 mg (241.3 mg magnesium) tablet 400 mg PO LUNCH 12/30/17 Ascorbic Acid [Vitamin C] 1,000 mg PO DAILY 12/20/18 Galantamine HBr 8 mg PO DAILY 12/20/18 Tamsulosin HCl [Flomax] 0.4 mg PO DINNER 12/20/18 Furosemide [Lasix] 60 mg PO BID@1000,1800 #180 tab 12/23/18 warfarin 2 mg tablet 2 mg PO QODAY 12/27/18 warfarin 2 mg tablet 4 mg PO QODAY tab 12/27/18 ferrous sulfate 325 mg (65 mg iron) tablet 325 mg PO DAILY tab 01/02/19 lisinopril 40 mg tablet 20 mg PO DAILY tab 01/02/19 Calcium Carbonate [Calcium] 600 mg PO DAILY 01/26/19 carvedilol 6.25 mg tablet 6.25 mg PO BID #180 tab 03/03/19 Acetaminophen [Tylenol Extra Strength] 500 mg PO Q6H PRN PRN #20 tablet 03/10/19 Amiodarone HCl 200 mg PO DAILY 03/10/19 Ibuprofen 600 mg PO Q6H PRN PRN #20 tablet 03/10/19 The following prescriptions were given: Acetaminophen [Tylenol Extra Strength] 500 mg PO Q6H PRN PRN #20 tablet PRN Reason: Pain Ibuprofen 600 mg PO Q6H PRN PRN #20 tablet PRN Reason: Pain Primary Care Physician: Pedro Marie MD [Primary Care Provider] - Test Results: Test results from this visit will be discussed in further detail at your follow- up appointment, if applicable. Please Follow Up With: Ezra Bermudez MD When: in 2 weeks, please call to make an appointment.
--- NOTE | 2019-03-10 10:46 | OP.PCM_ITS ---
Report of Operation Date of Procedure: 03/10/19 Post-Operative Diagnosis: Phimosis and difficulty with urination Surgery/Procedure Performed:: Same and BPH with obstruction Description of Surgical Findings:: 83-year-old male who presented the office with severe difficulty with urination and poor flow poor emptying on examination he is found to have a very tight foreskin very severe phimosis unable to get barely a pin pinhole opening in the tip of the foreskin so we will proceed with a circumcision and also evaluate the prostate enlargement. 83-year-old male taken back to the operating room with smooth induction of general anesthesia he was placed supine on the table I then performed a dorsal slit on the foreskin this allowed me to pull back the foreskin to the level of the glans I then , the penis and testicles are prepped and draped in usual fashion infiltrated circumferentially the foreskin with lidocaine, I then excised the foreskin with sharp scissors cutting off the noguera on the right side catheter on the left side once the foreskin was excised then I used electrocautery to obtain hemostasis so there was hemostasis all the way around the penis on the shaft after obtaining hemostasis then I proceeded with a reanastomosis of the shaft skin to the subcoronal tissue this was done with a 4- 0 chromic in an interrupted fashion and then between the four-point stitches I ran the suture all the way around to complete the circumcision. We then did a performed a flexible cystoscopy the meatus was wide open the channel was wide open there is no scar tissue or scar tissues along the pendulous or bulbar urethra the sphincter was intact inside the prostate the verumontanum was identified he had bilateral hypertrophy little bit of a high riding bladder neck but no median lobe so he did have obstruction bilaterally inside the prostate the trigone was identified the bladder had some mild to moderate trabeculation throughout the bladder but no tumors or stones were seen within the bladder I then removed the flexible cystoscope and the bladder was drained and the patient's anesthetic was reversed to take back to PACU good condition. Type of Anesthesia:: General Drains: none - Admit VTE Documentation VTE Present on Admission: No VTE Mechan Device Prophylaxis: SCD's
[2019-03-10 10:49] VITALS: BP 103/62; BP 133/100; PULSE 80; RESP 16; TEMP 36.7; O2SAT 95
[2019-03-10 11:00] VITALS: BP 103/62; BP 140/86; PULSE 72; RESP 16; O2SAT 96
[2019-03-10 11:15] VITALS: BP 103/62; BP 136/85; PULSE 74; RESP 16; O2SAT 95
[2019-03-10 11:29] VITALS: BP 103/62; BP 136/85; PULSE 71; RESP 16; TEMP 36.5; O2SAT 94
[2019-03-10 11:31] LABS: Bedside Glucose 128 mg/dL (70-110)
[2019-03-10 12:42] VITALS: BP 103/62; BP 138/87; PULSE 82; RESP 16; TEMP 36.3; O2SAT 97
== END 2019-03-10 12:42 | disposition home or self-care (01) ==
LOC: SDC 07:40 → AC 07:41
PROVIDERS: Family Provider Family Medicine; PCP Family Medicine; Referring Provider Urology; Visit Provider Urology
PROC: 0TJB8ZZ Inspection of Bladder, Via Natural or Artificial Opening Endoscopic (ICD-10-PCS; CPT 52000; principal; 2019-03-10 09:30)
DX: N47.1 Phimosis (principal); N48.29 Other inflammatory disorders of penis; N40.1 Benign prostatic hyperplasia with lower urinary tract symptoms; N13.8 Other obstructive and reflux uropathy; R35.0 Frequency of micturition; E11.9 Type 2 diabetes mellitus without complications; I48.91 Unspecified atrial fibrillation; M19.90 Unspecified osteoarthritis, unspecified site; K21.9 Gastro-esophageal reflux disease without esophagitis; D64.9 Anemia, unspecified; I11.0 Hypertensive heart disease with heart failure; I50.9 Heart failure, unspecified; G47.30 Sleep apnea, unspecified; Z79.82 Long term (current) use of aspirin; Z79.84 Long term (current) use of oral hypoglycemic drugs; Z79.01 Long term (current) use of anticoagulants; Z79.899 Other long term (current) drug therapy; Z85.46 Personal history of malignant neoplasm of prostate
CPT/HCPCS: 00920; 52000; 54150; 36416; 82962; 85610; 88304; J7120; J2405

== ENCOUNTER → 2019-03-24 | Outpatient (CLI) | payer MEDICARE, SELFPAY ==
[2019-03-22 15:10] VITALS: BMI 26.5
== END | disposition home or self-care (01) ==
LOC: MTLAB 13:11
PROVIDERS: Family Provider Family Medicine; PCP Family Medicine; Referring Provider Family Medicine; Visit Provider Family Medicine
DX: R31.9 Hematuria, unspecified (principal)
CPT/HCPCS: 87077; 87086; 87088; 87186

== ENCOUNTER 2019-03-30 07:04 | Emergency (ER) | payer MEDICARE, SELFPAY ==
[2019-03-22 15:10] VITALS: BMI 26.5
[2019-03-30 07:08] VITALS: BP 156/113; PULSE 100; RESP 16; TEMP 36.4; O2SAT 98; BMI 28.3
--- NOTE | 2019-03-30 07:45 | ED.VISSUMM ---
- ER Visit Summary Date of Service: 03/30/19 Chief Complaint: [] Gross hematuria today History of Present Illness: The patient is a 83 M [] history of A. fib on Coumadin, history of right pleural effusion with catheter placement, prior prostate cancer treated radiation therapy, history of recent bladder procedure 3 weeks ago unspecified procedure involving his bladder or prostate with circumcision by [facility] per the . He is on Coumadin, today began having gross hematuria urology was contacted just come in for evaluation his cardiovascular risk for status has been unremarkable he had no change in symptoms the states they are only here because of the gross hematuria, his INR has been therapeutic, he has had no blood per rectum no vomiting or blood no change and no complaints of chest pain or shortness of breath, He does have a tunneled catheter in the right abdominal area per the that is actually used to drain the pleural effusion and he has the drainage every few days at the hospital he is scheduled to have drainage procedure in a few days Per the his only current chief complaint is the gross hematuria began this morning Physical Examination: [] Vital signs are within normal range General, no distress resting comfortably flat in bed with no complaints he does have obvious gross hematuria HEENT is generally unremarkable The neck is supple no adenopathy Cardiovascular, iregular rate and rhythm, about 80 Lungs, clear bilateral, slightly diminished at the bases Abdomen, soft nontender His external genitalia is unremarkable, he does have obvious gross hematuria with urination the testicles exam pelvis is unremarkable nontender, the assures me he has had normal bowel habits without blood Extremities, no clubbing cyanosis or edema Neurologic, awake alert answering questions appropriately moving all 4 extremities Test Results: [] Emergency Department Course and Treatment: [] Is unclear what type of procedure he had a few days ago the reports is a prior history for prostate cancer treated with radiation therapy he was not found to have any cancer or anything that needed further follow-up after the procedure Treatment Plan: [] All the above screening labs are obtained Dailey catheter irrigation will discuss with [facility] INR His INR is 1.3 screening labs are generally unremarkable, he has been irrigated with over 10 L of fluid and he continues to have some very mild gross hematuria the hematuria is not as dense as it was, his we spoke with his urologist Dr. Craias , spoke with the , the cannot manage his condition given the persistent bleeding there is no coverage this next few days as that service is out of town, recommended transfer the agreed to transfer and asked to be transferred to [facility] as he has [facility] insurance, We spoke with the [facility] transfer line they accept him in transfer, he is remained hemodynamically stable here in the department Disposition: [] Transfer Impression: [] Gross hematuria, history of A. fib Coumadin therapy, history of intermittent recurrent gross hematuria etiology unclear, history of recent cystoscopy type procedure This note was generated with [employer] dictation software. It may contain incorrect words, spelling, and punctuation that were not noted in review of the chart prior to signing ED Disposition - Plan for ED Patient: Referrals: Pedro Marie MD [Primary Care Provider] -
--- NOTE | 2019-03-30 07:48 | ED.DCSUM_ITS ---
- ER Visit Summary Date of Service: 03/30/19 Chief Complaint: [] Gross hematuria today History of Present Illness: The patient is a 83 M [] history of A. fib on Coumadin, history of right pleural effusion with catheter placement, prior prostate cancer treated radiation therapy, history of recent bladder procedure 3 weeks ago unspecified procedure involving his bladder or prostate with circumcision by [facility] per the . He is on Coumadin, today began having gross hematuria urology was contacted just come in for evaluation his cardiovascular risk for status has been unremarkable he had no change in symptoms the states they are only here because of the gross hematuria, his INR has been therapeutic, he has had no blood per rectum no vomiting or blood no change and no complaints of chest pain or shortness of breath, He does have a tunneled catheter in the right abdominal area per the that is actually used to drain the pleural effusion and he has the drainage every few days at the hospital he is scheduled to have drainage procedure in a few days Per the his only current chief complaint is the gross hematuria began this morning Physical Examination: [] Vital signs are within normal range General, no distress resting comfortably flat in bed with no complaints he does have obvious gross hematuria HEENT is generally unremarkable The neck is supple no adenopathy Cardiovascular, iregular rate and rhythm, about 80 Lungs, clear bilateral, slightly diminished at the bases Abdomen, soft nontender His external genitalia is unremarkable, he does have obvious gross hematuria with urination the testicles exam pelvis is unremarkable nontender, the assures me he has had normal bowel habits without blood Extremities, no clubbing cyanosis or edema Neurologic, awake alert answering questions appropriately moving all 4 extremities Test Results: [] Emergency Department Course and Treatment: [] Is unclear what type of procedure he had a few days ago the reports is a prior history for prostate cancer treated with radiation therapy he was not found to have any cancer or anything that needed further follow-up after the procedure Treatment Plan: [] All the above screening labs are obtained Dailey catheter irrigation will discuss with [facility] INR His INR is 1.3 screening labs are generally unremarkable, he has been irrigated with over 10 L of fluid and he continues to have some very mild gross hematuria the hematuria is not as dense as it was, his we spoke with his urologist Dr. Carias , spoke with the , the cannot manage his condition given the persistent bleeding there is no coverage this next few days as that service is out of town, recommended transfer the agreed to transfer and asked to be transferred to [facility] as he has [facility] insurance, We spoke with the [facility] transfer line they accept him in transfer, he is remained hemodynamically stable here in the department Disposition: [] Transfer Impression: [] Gross hematuria, history of A. fib Coumadin therapy, history of intermittent recurrent gross hematuria etiology unclear, history of recent c ystoscopy type procedure This note was generated with [employer] dictation software. It may contain incorrect words, spelling, and punctuation that were not noted in review of the chart prior to signing ED Disposition - Plan for ED Patient: Referrals: Pedro Marie MD [Primary Care Provider] -
--- NOTE | 2019-03-30 07:48 | RAD_ITS ---
STUDY: X-RAY CHEST REASON FOR EXAM: Male, 83 years old. Shortness of breath and dyspnea TECHNIQUE: Single AP portable view of the chest. COMPARISON: February 16, 2019 FINDINGS: There is hyperinflation of the lungs consistent with chronic obstructive lung disease (COPD). Stable blunting of the right costophrenic angle. Lungs are otherwise clear. There is mild cardiac enlargement. Normal mediastinum and monalisa. Normal visualized pulmonary arteries. There is atherosclerotic tortuosity of the aortic arch and descending thoracic aorta. There are diffuse degenerative changes of the visualized thoracic spine. Postsurgical change of the right shoulder. There is no demonstrated abnormality of the visualized soft tissue structures of the upper abdomen. RAD/Chest 1 View (Portable) IMPRESSION: COPD. Stable blunting of the right costophrenic angle. No acute airspace disease. Electronically Signed: Juan Quintero DO at 8:32 EDT Tel , Service support ,
[2019-03-30] MEDS: 0.9% Normal Saline 1,000 ML 125 ML IV (07:59)
[2019-03-30 08:17] LABS: Absolute Lymphocyte Count 0.79 X10^3/ul (0.83-4.51); Absolute Neutrophil Count 6.7 X10^3/uL (2.0-7.7); Anion Gap 9 (5-15); BUN 31 mg/dL (7-18); BUN/Creat Ratio 20.8 RATIO (10-20); Basophil# 0.06 X10^3/uL; Basophil% 0.7 % (0-1); Calcium,Total 8.8 mg/dL (8.5-10.1); Chloride 103 mmol/L (98-107); Creatinine, Serum 1.49 mg/dL (0.70-1.30); EST Glomerular Filtration Rate 48 mL/min (>60); Eosinophil# 0.21 X10^3/uL; Eosinophils% 2.5 % (0-5); Est Glom Filt Rate - Afr Amer 58 mL/min (>60); Estimated Creatinine Clearance 32.68 ml/min; Glucose 166 mg/dL (74-106); Hematocrit 39.4 % (40-54); Hemoglobin 13.4 g/dl (13.0-16.5); Lymphocyte # 0.79 X10^3/ul (4.0); Lymphocyte % 9.3 % (19-41); Mean Corpuscular Hgb 28.6 pg (27.0-32.0); Mean Corpuscular Volume 84.2 fL (80-94); Monocyte# 0.67 X10^3/uL; Monocyte% 7.9 % (0-10); Neutrophil # 6.71 X10^3/uL (2.7-7.7); Platelet Count 155 K/mm3 (150-450); Potassium 3.7 mmol/L (3.5-5.1); RBC Distribution Width CV 18.5 % (11.6-14.6); RBC Distribution Width SD 57.2 fl (35.1-43.9); Red Blood Count 4.68 M/mm3 (4.6-6.2); Sodium Level 141 mmol/L (136-145); White Blood Count 8.5 K/mm3 (4.4-11.0)
[2019-03-30 08:18] LABS: POSITIVE COUNT NO; POSITIVE DIFFERENTIAL NO; POSITIVE MORPHOLOGY NO
[2019-03-30 08:32] LABS: Bacteria 0 SEEN /hpf (None Seen); Mucous, Urine 0 SEEN /hpf (<or=2+); Squamous Epithelial Cells - UA 0 SEEN /hpf (0-5)
[2019-03-30 08:35] LABS: International Normalized Ratio 1.3
[2019-03-30 08:38] LABS: Color, Urine Red (Yellow); Glucose, Dipstick Normal (Normal); Ketone-Dipstick 15 mg/dl (Negative); Leukocyte Esterase-Dipstick Negative /ul (Negative); Nitrite-Dipstick Negative (Negative); Occult Blood-Urine 250 /ul (Negative); Protein-Dipstick 500 mg/dl (Negative); Urine Bilirubin Dipstick Negative (Negative); Urine Clarity Cloudy (Clear); Urine Urobilinogen Normal (Normal)
[2019-03-30 08:44] LABS: Red Blood Cells-Urine > 100 SEEN /hpf (0-5)
[2019-03-30 08:45] LABS: White Blood Cells 5-10 SEEN /hpf (0-5)
[2019-03-30 09:07] VITALS: BP 114/79; O2SAT 97
[2019-03-30 11:50] VITALS: BP 166/104; PULSE 85; RESP 17; TEMP 36.8; O2SAT 98
[2019-03-30] MEDS: Ondansetron 4 MG/2 ML Vial IV (12:58)
[2019-03-30] MEDS: morphine 8 MG/ML Syringe IV (12:58)
[2019-03-30 13:13] VITALS: PULSE 81; RESP 17; O2SAT 98
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
[2019-03-30 14:10] VITALS: BP 151/106; PULSE 100; RESP 17; O2SAT 958
== END 2019-03-30 14:11 | disposition short-term general hospital (02) ==
PROVIDERS: Emergency Provider Emergency Medicine; Family Provider Family Medicine; PCP Family Medicine
DX: R31.0 Gross hematuria (principal); I48.91 Unspecified atrial fibrillation; Z79.01 Long term (current) use of anticoagulants; Z85.46 Personal history of malignant neoplasm of prostate; Z98.890 Other specified postprocedural states
CPT/HCPCS: 51702; 71045; 80048; 81001; 85025; 85610; 87086; 96361; 96374; 96375; 99285; J7030; A4216; J2405

== ENCOUNTER 2019-04-15 14:51 | Emergency (ER) | payer MEDICARE, SELFPAY ==
[2019-04-15 14:51] VITALS: BP 159/94; PULSE 66; RESP 14; TEMP 36.9; O2SAT 96; BMI 28.3
--- NOTE | 2019-04-15 15:13 | CT_ITS ---
STUDY: CT BRAIN WITHOUT CONTRAST REASON FOR EXAM: Male, 83 years old. Suicidal ideation RADIATION DOSAGE (If Supplied By Facility): CTDIvol = ( 44.99 ) mGy, DLP = ( 745.49 ) mGycm TECHNIQUE: Transaxial CT imaging of the brain was performed without administration of intravenous contrast material. Individualized dose optimization techniques were used for this CT. COMPARISON: 04/30/2016 FINDINGS: Normal soft tissue structures. Normal calvarium. There is moderate cerebral atrophy with widening of the extra-axial spaces and ventricular dilatation. There are areas of decreased attenuation within the white matter tracts of the supratentorial brain, consistent with microvascular disease changes. Normal basal ganglia and thalami. Normal brainstem. Normal cerebellum. There is atherosclerosis of the carotid siphons and vertebral arteries. There is no intracranial hemorrhage. There are no findings of an acute ischemic infarction. Normal visualized paranasal sinuses. CT/Brain/Head without Contrast IMPRESSION: 1. No acute intracranial hemorrhage or mass effect. 2. Central parenchymal volume loss. White matter changes that are nonspecific but most commonly associated with chronic small vessel ischemic disease. Electronically Signed: Jesús Lange MD at 15:49 EDT , Service support ,
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
--- NOTE | 2019-04-15 15:20 | EKG12_ITS ---
Test Reason : SUICIDAL Blood Pressure : / mmHG Vent. Rate : 079 BPM Atrial Rate : 061 BPM P-R Int : 000 ms QRS Dur : 102 ms QT Int : 432 ms P-R-T Axes : 000 -37 010 degrees QTc Int : 495 ms Atrial fibrillation Left axis deviation Prolonged QT Abnormal ECG Confirmed by DAVI PEREZ, ARI ([id number]), senior technical editor RANDELL TOMLIN ([id number]) on 04/17/2019 3:49:26 PM Referred By: TL Confirmed By:ARI TOMLINSON MD
--- NOTE | 2019-04-15 15:32 | RAD_ITS ---
STUDY: X-RAY CHEST REASON FOR EXAM: Male, 83 years old. Suicidal TECHNIQUE: AP COMPARISON: 03/30/2019 FINDINGS: There are fibrotic changes in the right lung base. A right basilar pleural catheter is noted. There is pleural fibrotic scarring of the right costophrenic angle. Normal size heart. Normal mediastinum and monalisa. Normal visualized pulmonary arteries. There is atherosclerotic calcification of the aortic arch with tortuosity. Normal visualized thoracic spine. Normal visualized ribs, clavicles, and shoulders. There is no demonstrated abnormality of the visualized soft tissue structures of the upper abdomen. RAD/Chest 1 View (Portable) IMPRESSION: 1. Since 03/30/2019, no interval change. 2. Right basilar pleural catheter. 3. Right basilar pleural parenchymal fibrotic scarring. Electronically Signed: Jesús Lange MD at 15:46 EDT , Service support ,
[2019-04-15 15:51] VITALS: BP 159/73; PULSE 85; RESP 16; O2SAT 96
[2019-04-15 16:16] LABS: Absolute Lymphocyte Count 0.72 X10^3/ul (0.83-4.51); Absolute Neutrophil Count 5.4 X10^3/uL (2.0-7.7); Basophil# 0.06 X10^3/uL; Basophil% 0.9 % (0-1); Eosinophil# 0.19 X10^3/uL; Eosinophils% 2.7 % (0-5); Hemoglobin 11.9 g/dl (13.0-16.5); Lymphocyte # 0.72 X10^3/ul (4.0); Lymphocyte % 10.3 % (19-41); Mean Corp Hgb Conc 33.1 g/gl (32-36); Mean Corpuscular Hgb 29.2 pg (27.0-32.0); Mean Corpuscular Volume 88.5 fL (80-94); Mean Platelet Vol. 9.5 fl (6.2-12.0); Monocyte% 8.6 % (0-10); Neutrophil # 5.36 X10^3/uL (2.7-7.7); Neutrophil % 77.1 % (47-70); Platelet Count 158 K/mm3 (150-450); RBC Distribution Width CV 18.7 % (11.6-14.6); RBC Distribution Width SD 60.5 fl (35.1-43.9); Red Blood Count 4.07 M/mm3 (4.6-6.2)
[2019-04-15 16:17] LABS: POSITIVE COUNT NO; POSITIVE DIFFERENTIAL NO; POSITIVE MORPHOLOGY NO
[2019-04-15 16:24] LABS: Mucous, Urine 0 SEEN /hpf (<or=2+)
[2019-04-15 16:27] LABS: ALB/GLOB Ratio 0.8 RATIO (0.9-2.4); AST(SGOT) 14 U/L (15-37); Alanine Aminotransfer ALT/SGPT 18 U/L (16-61); Albumin, Serum 3.1 g/dL (3.2-5.0); Alkaline Phosphatase 108 U/L (45-117); Anion Gap 9 (5-15); BUN 28 mg/dL (7-18); Calcium,Total 8.3 mg/dL (8.5-10.1); Chloride 103 mmol/L (98-107); Creatinine, Serum 1.65 mg/dL (0.70-1.30); EST Glomerular Filtration Rate 43 mL/min (>60); Est Glom Filt Rate - Afr Amer 51 mL/min (>60); Estimated Creatinine Clearance 29.51 ml/min; Globulin 3.9 g/dL (2.2-4.2); Glucose 134 mg/dL (74-106); Potassium 3.8 mmol/L (3.5-5.1); Sodium Level 144 mmol/L (136-145); Thyroid Stim Hormone (TSH) 2.92 uIU/mL (0.358-3.74)
[2019-04-15 16:30] LABS: Alcohol, Blood (Medical)-Serum < 3.0 mg/dL
[2019-04-15 16:30] LABS: Color, Urine Yellow (Yellow); Glucose, Dipstick Normal (Normal); Ketone-Dipstick Negative (Negative); Leukocyte Esterase-Dipstick 25 /ul (Negative); Nitrite-Dipstick Negative (Negative); Occult Blood-Urine 150 /ul (Negative); Protein-Dipstick 30 mg/dl (Negative); Urine Bilirubin Dipstick Negative (Negative); Urine Clarity Sl. Cloudy (Clear); Urine Urobilinogen Normal (Normal)
[2019-04-15 16:38] LABS: Red Blood Cells-Urine 0-5 SEEN /hpf (0-5); Squamous Epithelial Cells - UA 0-5 SEEN /hpf (0-5); White Blood Cells 0-5 SEEN /hpf (0-5)
[2019-04-15 16:39] LABS: Bacteria RARE /hpf (None Seen)
[2019-04-15 16:40] LABS: Amphetamine Urine VISTA NEGATIVE (<1000 ng/mL); Barbiturate Urine VISTA NEGATIVE (< 200 ng/mL); Benzodiazepine Urine VISTA NEGATIVE (< 200 ng/mL); Cocaine Urine VISTA NEGATIVE (< 300 ng/mL); Ecstacy Urine VISTA NEGATIVE (< 500 ng/mL); Methadone Urine VISTA NEGATIVE (< 300 ng/mL); PCP Urine VISTA NEGATIVE (< 25 ng/mL); THC Urine VISTA NEGATIVE (< 50 ng/mL); Vista UDS pH Range 6
[2019-04-15 19:08] VITALS: BP 138/92; PULSE 86; O2SAT 98
[2019-04-15 20:10] VITALS: RESP 16
--- NOTE | 2019-04-15 21:07 | ED.RN ---
PER PT , PT HAS NOT BEEN TAKING WARFARIN BECAUSE OF HIS BLADDER SCOPE AND CIRCUMCISION. HE IS NOT TO RESUME IT UNTIL APRIL 20 PER .
[2019-04-15] MEDS: Aspirin 81 MG TAB.CHEW PO (22:25)
[2019-04-15] MEDS: Carvedilol 6.25 MG Tablet PO (22:25)
[2019-04-15] MEDS: Amiodarone 200 MG Tablet PO (22:25)
[2019-04-15] MEDS: Tamsulosin HCl 0.4 MG Capsule PO (22:25)
[2019-04-15] MEDS: Loratadine 10 MG Tablet PO (22:25)
[2019-04-15 23:00] VITALS: BP 179/92; PULSE 87; RESP 16; O2SAT 97
[2019-04-16] VITALS (10 sets, daily range): BP systolic 132–152; BP diastolic 84–96; PULSE 82–90; RESP 12–18; O2SAT 95–99
--- NOTE | 2019-04-16 02:09 | NURSING ---
DECLINED TO [facility] DUE TO MEDICAL CONCERNS WAITING TO HEAR FROM [facility]
--- NOTE | 2019-04-16 07:18 | NURSING ---
IRAIDA, CRISIS, CALLED. TRYING TO GET PATIENT TO [facility]
[2019-04-16] MEDS: Calcium (Elemental) 500 MG Tablet PO (08:07)
[2019-04-16] MEDS: Lisinopril 20 MG Tablet PO (08:08)
[2019-04-16] MEDS: Carvedilol 6.25 MG Tablet PO (08:08)
[2019-04-16] MEDS: Cyanocobalamin 500 MCG Tablet 1000 MCG PO (08:09)
[2019-04-16] MEDS: Ascorbic Acid 500 MG Tablet 1000 MG PO (08:09)
[2019-04-16] MEDS: Magnesium Oxide 400 MG Tablet PO (08:09)
[2019-04-16] MEDS: Ferrous Sulfate 325 MG Tablet PO (08:10)
[2019-04-16] MEDS: Finasteride 5 MG Tablet PO (08:11)
[2019-04-16] MEDS: Loratadine 10 MG Tablet PO (08:48)
[2019-04-16] MEDS: Galantamine Hydrobromide 4 MG Tablet 8 MG PO (08:48)
--- NOTE | 2019-04-16 10:04 | NURSING ---
SHAYNE, DAVIN, WILL BE HERE SOON
--- NOTE | 2019-04-16 11:33 | NURSING ---
SHAYNE, CRISIS, HERE
--- NOTE | 2019-04-16 15:00 | ED.DEP ---
ED Disposition - Plan for ED Patient: Disposition: Home or Assisted Living Diagnosis: Depression, Suicidal ideation Instructions: ED Depression Prescriptions: Fluoxetine [Prozac] 20 mg PO DAILY #30 capsule Referrals: Pedro Marie MD [Primary Care Provider] - [facility] [GROUP OF PHYSICIANS] - As soon as possible
[2019-04-17 13:59] LABS: Vitamin B12 822 pg/mL (211-911)
[2019-04-21 02:05] LABS: Rapid Plasmin Reagin (RPR) NONREACTIVE (NONREACTIVE)
== END 2019-04-16 15:34 | disposition home or self-care (01) ==
PROVIDERS: Emergency Provider Emergency Medicine; Family Provider Family Medicine; PCP Family Medicine
DX: F32.9 Major depressive disorder, single episode, unspecified (principal); F03.90 Unspecified dementia, unspecified severity, without behavioral disturbance, psychotic disturbance, mood disturbance, and anxiety; I48.91 Unspecified atrial fibrillation; I50.9 Heart failure, unspecified; E11.9 Type 2 diabetes mellitus without complications
CPT/HCPCS: 70450; 71045; 80053; 80307; 80320; 81001; 82607; 84443; 85025; 86592; 93005; 99285; A4216; G0480

== ENCOUNTER 2019-04-17 20:52 | Emergency (ER) | payer MEDICARE, SELFPAY ==
[2019-04-17 20:53] VITALS: BP 187/97; PULSE 79; RESP 16; TEMP 36.1; O2SAT 98; BMI 27.4
[2019-04-17 21:12] VITALS: BP 159/105
--- NOTE | 2019-04-17 21:25 | EKG12_ITS ---
Test Reason : HTN Blood Pressure : / mmHG Vent. Rate : 077 BPM Atrial Rate : 070 BPM P-R Int : 000 ms QRS Dur : 102 ms QT Int : 388 ms P-R-T Axes : 000 -31 039 degrees QTc Int : 439 ms Atrial fibrillation Left axis deviation Abnormal ECG Confirmed by ROSEMARIE PEREZ, ABBIE ([id number]), order editor KARMA SAMPSON ([id number]) on 04/20/2019 1:22:32 PM Referred By: ARGENIS Confirmed By:ABBIE HOUSTON MD
--- NOTE | 2019-04-17 21:26 | ED.VIS.GEN ---
History of Present Illness Chief Complaint: Hypertension Detail of Chief Complaint: Per per patient shortness of breath Informant: Patient, Significant Other Onset: Today Context: - - Per patient and started today Timing: Continuous Quality: Elevated blood pressure, shortness of breath and lightheadedness Location: Home Current Severity: Mild Maximum Severity: Mild Worsened by: Lightheadedness is worse with standing. Relieved by: nothing Associated Symptoms: No associated symptoms Narrative: Patient is an elderly male with multiple medical problems who presents with multiple readings of elevated blood pressure without complaint of headache, double vision, change in vision or blurred vision. He denies being his ears. Eyes trouble with speech or swallowing. He denies numbness, tingling or weakness in his upper lower external he. He denies problems with walking or balance. He does report lightheadedness. He also reports shortness of breath. He denies cough or chest pain. He denies orthopnea or PND. He denies nausea, vomiting diarrhea. He denies urinary symptoms. Prior similar symptoms: Yes Recent Illness/Hospitalization: No - Past Medical History (1) (HFpEF) heart failure with preserved ejection fraction Status: Acute (2) Atrial fibrillation Status: Acute (3) Pleural effusion Status: Acute (4) Renal insufficiency Status: Acute (5) Chronic renal failure, stage 3 (moderate) Status: Chronic (6) Diabetes mellitus, type II Status: Chronic (7) Generalized osteoarthritis Status: Chronic (8) Generalized weakness Status: Chronic (9) History of anxiety disorder Status: Chronic (10) History of prostate cancer Status: Chronic Comment: Status post radiotherapy (11) Hypertension Status: Chronic (12) 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 (13) Mild dementia Status: Chronic (14) Non-rheumatic aortic stenosis Status: Chronic (15) Non-rheumatic tricuspid valve insufficiency Status: Chronic (16) Rheumatoid arthritis Status: Chronic (17) 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 Status: Chronic Past Medical History - Allergies and Home Meds Allergies/Adverse Reactions: Allergies cimetidine HCl [From Tagamet] Allergy (Verified 04/17/19 20:56) Rash ciprofloxacin [From Cipro] Allergy (Verified 04/17/19 20:56) Rash amoxicillin trihydrate [From Augmentin] Adverse Reaction (Verified 04/17/19 20:56) Abd cramps/diarrhea cefdinir [From Omnicef] Adverse Reaction (Verified 04/17/19 20:56) Diarrhea indomethacin sodium [From Indocin] Adverse Reaction (Verified 04/17/19 20:56) Nausea memantine HCl [From Namenda] Adverse Reaction (Verified 04/17/19 20:56) dizziness potassium clavulanate [From Augmentin] Adverse Reaction (Verified 04/17/19 20:56) Abd cramps/diarrhea sitagliptin phosphate [From Januvia] Adverse Reaction (Verified 04/17/19 20:56) Nausea Primary Care Physician: Pedro Marie MD [Primary Care Provider] - Prior records reviewed: Yes Surgical History: cholecystectomy, total knee arthroplasty Lives: Spouse/ Significant Other Smoking Status: Never smoker Alcohol: None - Family History Maternal Family History: Family History (Last Reviewed 03/24/19 @ 19:13 by WEI Hillman) Father CAD (coronary artery disease) Myocardial infarction Brother Diabetes Family History: Reports: No pertinent history Paternal Family History: Family History (Last Reviewed 03/24/19 @ 19:13 by WEI Hillman) Father CAD (coronary artery disease) Myocardial infarction Brother Diabetes Family History: Reports: No pertinent history Review of Systems General: Denies: Chills, Fever, Malaise, Subjective, Sweats Eyes: Denies: Visual changes - bilaterally, Blurred Vision - bilaterally, Diplopia ENT: Denies: Bilateral ear pain, Rhinorrhea Cardiovascular: Denies: Chest pain, Palpitations, Heart racing, -, - Respiratory: Reports: Dyspnea. Denies: Cough, Dyspnea on exertion, Orthopnea, Paroxysmal nocturnal dyspnea Gastrointestinal: Denies: Abdominal pain, Nausea, Vomiting, Diarrhea, Melena Genitourinary: Denies: Dysuria, Hematuria, Frequency Musculoskeletal: Denies: Myalgias, Arthralgias, Neck pain, Back pain, Swelling, Extremity Pain Skin: Denies: Rash, Wounds Neurological: Reports: Headache - Pressure forehead region, Weakness. Denies: Parasthesia, Numbness Psych: Reports: Anxiety Endocrine: Denies: Polyuria, Polydipsia Hematologic: Denies: Easy bruising, Easy bleeding Allergy: Denies: Uticaria Physical Exam Vital Signs/Narrative: Vital Signs Temp Pulse Resp BP Pulse Ox 04/17/19 21:12 159/105 H 04/17/19 20:53 97 F L 79 16 187/97 H 98 Inital Vital Signs reviewed: Yes General: Well nourished, Well developed, No Acute Distress Head: Normocephalic, Atraumatic Eyes: Perrl, EOMI. Negative for: Pale conjunctiva, Scleral icterus ENT: Moist mucous membranes, No rhinorrhea, TM's clear Neck: Supple, Nontender, No lymphadenopathy, No JVD Cardiovascular: Regular rhythm, No murmurs, Irregular Respiratory: No distress, Chest nontender, Rales - Sterilely right base Abdomen: Soft, Nontender, Nondistended, Normal bowel sounds, No masses Rectal: Deferred Back: Nontender, Normal Inspection. Negative for: CVA tenderness Extremities: Nontender, No edema, - - PT and DP pulses are palpable but diminished, 1+ no lesions or wounds noted lower extremity. Skin: Normal color, No rash, No Trauma. Negative for: Cyanosis, Diaphoresis, Jaundice Neurological: Alert, Cranial nerves II-XII grossly intact, Normal Strength, Normal Sensation, Normal DTR - No clonus or Babinski sign. Psychological: Normal affect, Normal Mood Diagnostic/Tx/Re-eval Chest X-Ray - ED: 2 View, Read by ED Physician, Mediastinum, Bony Structures, Cardiomegaly, Right Infiltrate - Chronic, - - Atelectasis left lower lobe chronic calcification of the aorta chronic right shoulder prosthesis chronic, 221904/17/19 21:43 Chest PA and Lateral [RAD] Stat Laboratory Results 04/17/19 04/17/19 04/17/19 21:38 21:38 21:38 WBC 7.6 RBC 4.14 L Hgb 11.8 L Hct 36.8 L MCV 88.9 MCH 28.5 MCHC 32.1 RDW 18.6 H RDW Differential 60.2 H Plt Count 136 L MPV 9.2 Immature Gran % (Auto) 0.100 Neut % (Auto) 77.8 H Lymph % (Auto) 12.2 L [place] % (Auto) 6.7 Eos % (Auto) 2.5 Baso % (Auto) 0.7 Absolute Neuts (auto) 5.9 Absolute Lymphs (auto) 0.92 Total Counted Not Reportable PT INR Sodium 140 Potassium 3.8 Chloride 103 Carbon Dioxide 32.0 Anion Gap 5 BUN 26 H Creatinine 1.46 H Estim Creat Clear Calc 33.35 Est GFR (MDRD) Af Amer 59 L Est GFR (MDRD) Non-Af 49 L BUN/Creatinine Ratio 17.8 Glucose 193 H Calcium 8.4 L B-Natriuretic Peptide 569.4 H 04/17/19 21:38 WBC RBC Hgb Hct MCV MCH MCHC RDW RDW Differential Plt Count MPV Immature Gran % (Auto) Neut % (Auto) Lymph % (Auto) [place] % (Auto) Eos % (Auto) Baso % (Auto) Absolute Neuts (auto) Absolute Lymphs (auto) Total Counted PT 14.6 INR 1.2 Sodium Potassium Chloride Carbon Dioxide Anion Gap BUN Creatinine Estim Creat Clear Calc Est GFR (MDRD) Af Amer Est GFR (MDRD) Non-Af BUN/Creatinine Ratio Glucose Calcium B-Natriuretic Peptide - Rhythm Strip Rhythm Strip: A-fib Rate: 83 Ectopy: PVC(s) - Rare ectopic versus a variant beat - EKG Initial EKG Interpretation: Atrial Fibrillation - Trickle rate 77. QRS duration 102 ms. QT interval normal. [place] to the left. No acute ischemic changes noted. - Medical Decision Making Patient's laboratory work-up is essentially unremarkable. PT/INR is subtherapeutic. BNP is slightly elevated at 562. Chest x-ray however reveals no acute process compared to prior. Since he does complain of dyspnea and has rales we will increase his Lasix dose. Most recent blood pressure is 157/93. Patient presented because of elevated blood pressure. He is asymptomatic. He does have multiple medical problems. Because of his abnormal respiratory findings and complaint of shortness of breath chest x-ray was obtained. Blood work was obtained to assess for anemia, infectious cause and assess renal function. Since vital signs are unremarkable he is not hypoxic will discharge to home and follow-up with PCP in 3 to 5 days. ED Disposition - Plan for ED Patient: Disposition: Home or Assisted Living Diagnosis: Hypertension associated with stage 3 chronic kidney disease due to type 2 diabetes mellitus, Dyspnea, History of congestive heart failure, Pleural effusion, right Instructions: ED HTN Established Referrals: Pedro Marie MD [Primary Care Provider] - 3-5 Days Additional Instructions: Increase her Lasix from 40 mg twice a day to 80 mg twice a day for the next 3 days. If systolic blood pressure greater than 180 and diastolic pressure greater than 120 return to the emergency department. If systolic blood pressure greater than 210 return to the emergency department.
--- NOTE | 2019-04-17 21:43 | RAD_ITS ---
STUDY: X-RAY CHEST REASON FOR EXAM: Male, 83 years old. Hypertension. Shortness of breath. TECHNIQUE: PA and lateral views of the chest. COMPARISON: April 15, 2019. FINDINGS: There is stable fibrotic changes at the right lung base with question of small bilateral pleural effusions. No new mass or infiltrate is seen. The heart remains borderline enlarged. Normal mediastinum and monalisa. Normal visualized pulmonary arteries. There is atherosclerotic calcification of the aortic arch with tortuosity. There are diffuse degenerative changes of the visualized thoracic spine. Again seen is a right artificial shoulder. There is no demonstrated abnormality of the visualized soft tissue structures of the upper abdomen. RAD/Chest PA and Lateral IMPRESSION: No major interval change. Electronically Signed: Campos Dsouza DO at 23:06 EDT Tel [phone], Service support ,
[2019-04-17 21:45] VITALS: BP 162/91; PULSE 77; RESP 17; O2SAT 98
[2019-04-17 21:52] LABS: Absolute Lymphocyte Count 0.92 X10^3/ul (0.83-4.51); Absolute Neutrophil Count 5.9 X10^3/uL (2.0-7.7); Basophil# 0.05 X10^3/uL; Basophil% 0.7 % (0-1); Eosinophil# 0.19 X10^3/uL; Eosinophils% 2.5 % (0-5); Hematocrit 36.8 % (40-54); Hemoglobin 11.8 g/dl (13.0-16.5); Lymphocyte # 0.92 X10^3/ul (4.0); Lymphocyte % 12.2 % (19-41); Mean Corp Hgb Conc 32.1 g/gl (32-36); Mean Corpuscular Hgb 28.5 pg (27.0-32.0); Mean Corpuscular Volume 88.9 fL (80-94); Mean Platelet Vol. 9.2 fl (6.2-12.0); Monocyte# 0.51 X10^3/uL; Monocyte% 6.7 % (0-10); Neutrophil # 5.88 X10^3/uL (2.7-7.7); Neutrophil % 77.8 % (47-70); POSITIVE COUNT NO; POSITIVE DIFFERENTIAL NO; POSITIVE MORPHOLOGY NO; Platelet Count 136 K/mm3 (150-450); RBC Distribution Width CV 18.6 % (11.6-14.6); RBC Distribution Width SD 60.2 fl (35.1-43.9); Red Blood Count 4.14 M/mm3 (4.6-6.2); White Blood Count 7.6 K/mm3 (4.4-11.0)
[2019-04-17 21:58] LABS: Anion Gap 5 (5-15); BUN 26 mg/dL (7-18); BUN/Creat Ratio 17.8 RATIO (10-20); Calcium,Total 8.4 mg/dL (8.5-10.1); Chloride 103 mmol/L (98-107); Creatinine, Serum 1.46 mg/dL (0.70-1.30); EST Glomerular Filtration Rate 49 mL/min (>60); Est Glom Filt Rate - Afr Amer 59 mL/min (>60); Estimated Creatinine Clearance 33.35 ml/min; Glucose 193 mg/dL (74-106); Potassium 3.8 mmol/L (3.5-5.1); Sodium Level 140 mmol/L (136-145)
[2019-04-17 22:02] VITALS: BP 157/93; PULSE 83; RESP 16; O2SAT 98
[2019-04-17 22:03] LABS: International Normalized Ratio 1.2; Prothrombin Time (Protime)PT. 14.6 SECONDS (11.7-14.9)
[2019-04-17 22:33] LABS: BNP,B-Type NATRIURETIC PEPTIDE 569.4 pg/mL (0-100)
[2019-04-17 22:51] VITALS: BP 160/114; PULSE 85; RESP 15; O2SAT 96
== END 2019-04-17 23:13 | disposition home or self-care (01) ==
PROVIDERS: Emergency Provider Emergency Medicine; Family Provider Family Medicine; PCP Family Medicine
DX: I13.0 Hypertensive heart and chronic kidney disease with heart failure and stage 1 through stage 4 chronic kidney disease, or unspecified chronic kidney disease (principal); J90 Pleural effusion, not elsewhere classified; I50.32 Chronic diastolic (congestive) heart failure; E11.22 Type 2 diabetes mellitus with diabetic chronic kidney disease; N18.3 Chronic kidney disease, stage 3 (moderate); I48.91 Unspecified atrial fibrillation; M15.9 Polyosteoarthritis, unspecified; F03.90 Unspecified dementia, unspecified severity, without behavioral disturbance, psychotic disturbance, mood disturbance, and anxiety; M06.9 Rheumatoid arthritis, unspecified; I27.29 Other secondary pulmonary hypertension; F41.9 Anxiety disorder, unspecified; Z85.46 Personal history of malignant neoplasm of prostate; Z79.01 Long term (current) use of anticoagulants; Z79.899 Other long term (current) drug therapy
CPT/HCPCS: 71046; 80048; 83880; 85025; 85610; 93005; 99284; A4216

== ENCOUNTER → 2019-04-18 | Outpatient (CLI) | payer MEDICARE, SELFPAY ==
[2019-03-22 15:10] VITALS: BMI 26.5
[2019-04-17 20:53] VITALS: BMI 27.4
[2019-04-18 12:54] VITALS: PULSE 102; PULSE 104; PULSE 78; PULSE 87; PULSE 89; PULSE 98; PULSE 99; O2SAT 90; O2SAT 91; O2SAT 92; O2SAT 97; O2SAT 98
--- NOTE | 2019-04-19 08:50 | PCM.PSN.6M ---
PSN 6 Minute Walk Test - 6 Minute Walk Test 6 Minute Walk Test: 6 Minute Walk Test PSN:6-Minute Walk Test Start: 04/18/19 12:54 Freq: Status: Active Protocol: RESP.6MINW Document 04/18/19 12:54 SMB (Rec: 04/18/19 12:56 SMB [id number]) 6 Minute Walk Test Date Performed 04/18/19 Time Performed 12:36 Height 5 ft 5 in Weight: 165 lb Weight in Pounds 165.[address]: Mili Russ Assistive device used: Cane Pre-test Oxygen Delivery Method Room Air Pulse Ox (%) 97 Pulse Rate (60-100 beats/min) 78 Dyspnea Jennifer Scale (0-10) 0 Exertion Jennifer Scale (6-20) 11 1st minute Oxygen Delivery Method Room Air Pulse Ox (%) 92 Pulse Rate (60-100 beats/min) 98 2nd minute Oxygen Delivery Method Room Air Pulse Ox (%) 90 Pulse Rate (60-100 beats/min) 87 3rd minute Oxygen Delivery Method Room Air Pulse Ox (%) 90 Pulse Rate (60-100 beats/min) 104 H 4th minute Oxygen Delivery Method Room Air Pulse Ox (%) 91 Pulse Rate (60-100 beats/min) 102 H 5th minute Oxygen Delivery Method Room Air Pulse Ox (%) 91 Pulse Rate (60-100 beats/min) 99 6th minute Oxygen Delivery Method Room Air Pulse Ox (%) 91 Pulse Rate (60-100 beats/min) 102 H Post-test Oxygen Delivery Method Room Air Pulse Ox (%) 98 Pulse Rate (60-100 beats/min) 89 Dyspnea Jennifer Scale (0-10) 0 Exertion Jennifer Scale (6-20) 11 Full Laps Walked 19 Partial Lap, Number of Tiles Walked 12 Total Distance Walked (ft) 1133 - Interpretation Interpretation: The patient ambulated 1133 feet over the course of 6 minutes beginning on room air without assistive devices or breaks. Pretesting oxygen saturation was noted to be 97% on room air. With ambulation, the gerson oxygen saturation was 90%. This represents a significant exertional oxygen desaturation. - Recommendations Recommendations: There is no indication for the use of supplemental oxygen at this time. However, close interval follow-up is recommended, given the degree of oxygen desaturation noted during this study.
== END | disposition home or self-care (01) ==
LOC: PSN 12:30
PROVIDERS: Family Provider Family Medicine; PCP Family Medicine; Referring Provider Nurse Practitioner Acute Care; Visit Provider Nurse Practitioner Acute Care
DX: J90 Pleural effusion, not elsewhere classified (principal)
CPT/HCPCS: 94618

== ENCOUNTER → 2019-04-27 | Outpatient (CLI) | payer MEDICARE, SELFPAY ==
[2019-03-30 07:08] VITALS: BMI 28.3
[2019-04-17 20:53] VITALS: BMI 27.4
--- NOTE | 2019-04-27 15:48 | CT_ITS ---
STUDY: CT ABDOMEN AND PELVIS WITHOUT CONTRAST REASON FOR EXAM: Male, 83 years old. Gross hematuria. RADIATION DOSAGE (If Supplied By Facility): CTDIvol = ( 10.88 ) mGy, DLP = ( 497.39 ) mGycm TECHNIQUE: Transaxial images were obtained from the dome of the diaphragm to the symphysis pubis without oral contrast, and without intravenous contrast. Sagittal and coronal images were reconstructed. Individualized dose optimization techniques were used for this CT. COMPARISON: August 15, 2018 FINDINGS: There is a right pleural effusion. There appears to be a drainage catheter within the right lung. There is dependent consolidation within the right lower lobe. There is a small left pleural effusion. There are coronary artery calcifications. The lack of intravenous contrast limits evaluation of solid visceral organs. There is a too small to characterize low-attenuation focus within the periphery of the right hepatic lobe which may reflect underlying cyst There is non-visualization of the gallbladder, which may be secondary to either contraction or a prior cholecystectomy. There are multiple benign calcified granulomata of the spleen. The pancreas is stable. There is minimal stable peripancreatic stranding. Normal bilateral adrenal glands. There is a stable 3.6 cm right renal cyst with few peripheral calcifications. Normal left kidney. Normal visualized stomach. Normal small intestine. There are multiple colonic diverticula consistent with diverticulosis. The appendix is visualized and appears normal. There is diffuse atherosclerotic calcification of the abdominal aorta, without a demonstrated aneurysm. Normal inferior vena cava. Normal retroperitoneum. There is mild bladder wall thickening. There appear to be radiation seeds within the prostate gland. There is a right inguinal hernia that contains fluid. There are diffuse degenerative changes of the visualized lumbar spine. The bones are diffusely demineralized. 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 CT/Abdomen/Pelvis without Cont IMPRESSION: Mild bladder wall thickening this may be partially secondary to its incompletely distended state however cannot exclude a history of cystitis. Colonic diverticulosis. Atherosclerosis. Minimally complex right renal cyst. Bilateral pleural effusions right greater than left. Dependent consolidation within the right lower lobe. Electronically Signed: Angela Owens MD at 16:25 EDT Tel , Service support ,
== END | disposition home or self-care (01) ==
LOC: CT 15:46
PROVIDERS: Family Provider Family Medicine; PCP Family Medicine; Referring Provider Urology; Visit Provider Urology
DX: R31.0 Gross hematuria (principal); R10.30 Lower abdominal pain, unspecified
CPT/HCPCS: 74176

== ENCOUNTER 2019-05-01 13:56 | Emergency (ER) | payer MEDICARE, SELFPAY ==
[2019-05-01 13:58] VITALS: BP 132/80; PULSE 77; RESP 18; TEMP 36.6; O2SAT 100; BMI 28.0
[2019-05-01 14:04] VITALS: BP 157/86; PULSE 73; RESP 14; O2SAT 100
--- NOTE | 2019-05-01 14:32 | EKG12_ITS ---
Test Reason : CP Blood Pressure : / mmHG Vent. Rate : 073 BPM Atrial Rate : 075 BPM P-R Int : 000 ms QRS Dur : 112 ms QT Int : 414 ms P-R-T Axes : 000 -38 059 degrees QTc Int : 456 ms Atrial fibrillation Left axis deviation Low voltage QRS (limb leads) Abnormal ECG Confirmed by ROSEMARIE PEREZ, ABBIE ([id number]), film or videotape editor RANDELL TOMLIN ([id number]) on 05/05/2019 6:32:34 AM Referred By: ASCENCION/SHANTELL Confirmed By:ABBIE HOUSTON MD
--- NOTE | 2019-05-01 14:48 | RAD_ITS ---
STUDY: X-RAY CHEST REASON FOR EXAM: Male, 83 years old. Chest pain, TECHNIQUE: Portable chest COMPARISON: 04/17/2019 FINDINGS: There is stable cardiomegaly. There are small pleural effusions unchanged. There is a right shoulder prosthesis. Stable scarring Normal mediastinum and monalisa. Normal visualized pulmonary arteries. Normal visualized aortic arch and descending thoracic aorta. Normal visualized thoracic spine. Normal visualized ribs, clavicles, and shoulders. There is no demonstrated abnormality of the visualized soft tissue structures of the upper abdomen. RAD/Chest 1 View (Portable) IMPRESSION: no change from prior stable cardiomegaly. There are small pleural effusions unchanged. There is a right shoulder prosthesis. Stable scarring Electronically Signed: Francisco J Hess, at 16:34 EDT Tel , Service support ,
[2019-05-01 15:05] LABS: Absolute Lymphocyte Count 0.59 X10^3/ul (0.83-4.51); Absolute Neutrophil Count 4.8 X10^3/uL (2.0-7.7); Basophil# 0.04 X10^3/uL; Basophil% 0.7 % (0-1); Eosinophil# 0.12 X10^3/uL; Hematocrit 39.1 % (40-54); Hemoglobin 12.9 g/dl (13.0-16.5); Lymphocyte # 0.59 X10^3/ul (4.0); Lymphocyte % 9.7 % (19-41); Mean Corpuscular Hgb 29.8 pg (27.0-32.0); Mean Corpuscular Volume 90.3 fL (80-94); Mean Platelet Vol. 9.4 fl (6.2-12.0); Monocyte# 0.48 X10^3/uL; Monocyte% 7.9 % (0-10); Neutrophil # 4.83 X10^3/uL (2.7-7.7); Neutrophil % 79.2 % (47-70); Platelet Count 138 K/mm3 (150-450); RBC Distribution Width CV 17.4 % (11.6-14.6); RBC Distribution Width SD 57.6 fl (35.1-43.9); Red Blood Count 4.33 M/mm3 (4.6-6.2); White Blood Count 6.1 K/mm3 (4.4-11.0)
[2019-05-01 15:06] LABS: Differential Indicated SCAN CRITERIA MET; POSITIVE COUNT NO; POSITIVE DIFFERENTIAL YES; POSITIVE MORPHOLOGY NO
[2019-05-01 15:10] LABS: Prothrombin Time (Protime)PT. 31.2 SECONDS (11.7-14.9)
[2019-05-01 15:17] VITALS: BP 176/113; PULSE 69; RESP 12; O2SAT 98
[2019-05-01 15:24] LABS: Anion Gap 11 (5-15); BUN 26 mg/dL (7-18); BUN/Creat Ratio 16.8 RATIO (10-20); Calcium,Total 8.2 mg/dL (8.5-10.1); Chloride 101 mmol/L (98-107); Creatinine, Serum 1.55 mg/dL (0.70-1.30); EST Glomerular Filtration Rate 46 mL/min (>60); Est Glom Filt Rate - Afr Amer 55 mL/min (>60); Estimated Creatinine Clearance 31.41 ml/min; Glucose 123 mg/dL (74-106); Potassium 3.5 mmol/L (3.5-5.1); Sodium Level 142 mmol/L (136-145)
--- NOTE | 2019-05-01 16:42 | ED.VISSUMM ---
- ER Visit Summary Date of Service: 05/01/19 Chief Complaint: Chest pain History of Present Illness: The patient is a 83 M with a daily complaints of chest pain for the last year. states that it was his last for a few minutes and then goes away. He has a right pleural catheter in place to drain chronic right pleural effusion. She did note that he had increased drainage output the last couple days as well. Physical Examination: Blood pressure is 157/86, temperature 97.9, heart rate 73, respiratory rate 14, pulse ox 100% on room air. Patient sitting upright in bed no acute distress. Heart is regular rate and rhythm. Lung sounds are diminished at the right base. Abdomen is soft and nontender. Test Results: EKG is A. fib at 73 with no acute ischemia. Portable chest x-ray shows no change from prior. Stable cardiomegaly is noted. Small pleural effusions are unchanged. Emergency Department Course and Treatment: CBC was normal white count. Hemoglobin is 12.9 and platelet count is 138,000. Chemistry studies reveal BUN 26 and creatinine 1.55. This does appear consistent with his prior. Troponin is less than 0.015. Treatment Plan: I did review prior work-up. Normal stress test was noted in December 2017. Patient has very atypical short lasting pain. My suspicion is this could be from the pleural cath. At this time no further intervention is needed. He is to follow-up with his specialist as scheduled. Disposition: Discharge Impression: Atypical chest pain This note was generated with [employer] dictation software. It may contain incorrect words, spelling, and punctuation that were not noted in review of the chart prior to signing ED Disposition - Plan for ED Patient: Disposition: Home or Assisted Living Instructions: ED Chest Pain Atypical Unkn Cause Referrals: Pedro Marie MD [Primary Care Provider] - 1 Week
--- NOTE | 2019-05-01 16:45 | ED.DCSUM_ITS ---
- ER Visit Summary Date of Service: 05/01/19 Chief Complaint: Chest pain History of Present Illness: The patient is a 83 M with a daily complaints of chest pain for the last year. states that it was his last for a few minutes and then goes away. He has a right pleural catheter in place to drain chronic right pleural effusion. She did note that he had increased drainage output the last couple days as well. Physical Examination: Blood pressure is 157/86, temperature 97.9, heart rate 73, respiratory rate 14, pulse ox 100% on room air. Patient sitting upright in bed no acute distress. Heart is regular rate and rhythm. Lung sounds are diminished at the right base. Abdomen is soft and nontender. Test Results: EKG is A. fib at 73 with no acute ischemia. Portable chest x-ray shows no change from prior. Stable cardiomegaly is noted. Small pleural eff usions are unchanged. Emergency Department Course and Treatment: CBC was normal white count. Hemoglobin is 12.9 and platelet count is 138,000. Chemistry studies reveal BUN 26 and creatinine 1.55. This does appear consistent with his prior. Troponin is less than 0.015. Treatment Plan: I did review prior work-up. Normal stress test was noted in December 2017. Patient has very atypical short lasting pain. My suspicion is this could be from the pleural cath. At this time no further intervention is needed. He is to follow-up with his specialist as scheduled. Disposition: Discharge Impression: Atypical chest pain This note was generated with [employer] dictation software. It may contain incorrect words, spelling, and punctuation that were not noted in review of the chart prior to signing ED Disposition - Plan for ED Patient: Disposition: Home or Assisted Living Instructions: ED Chest Pain Atypical Unkn Cause Referrals: Pedro Marie MD [Primary Care Provider] - 1 Week
[2019-05-01 17:03] VITALS: BP 178/62; PULSE 77; RESP 10; O2SAT 99
== END 2019-05-01 17:04 | disposition home or self-care (01) ==
PROVIDERS: Emergency Provider Emergency Medicine; Family Provider Family Medicine; PCP Family Medicine
DX: R07.89 Other chest pain (principal); I11.0 Hypertensive heart disease with heart failure; I50.9 Heart failure, unspecified; E11.9 Type 2 diabetes mellitus without complications; I48.91 Unspecified atrial fibrillation; M06.9 Rheumatoid arthritis, unspecified; G47.33 Obstructive sleep apnea (adult) (pediatric); F03.90 Unspecified dementia, unspecified severity, without behavioral disturbance, psychotic disturbance, mood disturbance, and anxiety; Z85.46 Personal history of malignant neoplasm of prostate; Z79.01 Long term (current) use of anticoagulants; Z79.899 Other long term (current) drug therapy
CPT/HCPCS: 71045; 80048; 84484; 85025; 85610; 93005; 99285

== ENCOUNTER → 2019-05-16 15:23 | Outpatient (CLI) | payer MEDICARE, SELFPAY ==
[2019-05-11 10:30] VITALS: BMI 28.6
--- NOTE | 2019-05-16 | FLU_PTH ---
PATIENT: IVAN STANLEY LOC: [facility] U#:[id number] AGE/SX: 89/M ROOM: RE05/16/[address]: Dr. Ivan Santizo MD : [id number] BED: DIS: SPEC #: [id number] RECD: 05/16/19 15:54 STATUS: MARLI DAJA #: [id number] DEBORAH: 05/16/19 00:[address]: Ivan Santizo DEPT: CYTOLOGY RECD BY: Buck Nova Tissues: Peritoneal fluid Procedures: Special Stain Group II Surgery Specimen Level IV Cytospin Fluid HEADER OPERATION: Not noted PRE-OP DIAGNOSIS: Pleural effusion TISSUE SUBMITTED: Peritoneal fluid for cytology DIAGNOSIS CYTOLOGY Peritoneal fluid, cytology monolayer and cell block: Negative for malignant cells. See cytology study. CE:jose 05/18/19 CYTOLOGY STUDY Slides are reviewed. Cytology monolayer and cell block demonstrate mononuclear cells and mesothelial cells with a few acute inflammatory cells. No atypia is found. CYTOLOGY GROSS Received is 600 ml of yellow cloudy fluid labeled with the patient's name and and designated per the requisition as peritoneal fluid. Submitted for cytology preparation including cell block. / 05/17/19 TC: CPT: 82882, [id number]
[2019-05-16 16:00] LABS: Cytology, Body Fluid / CSF SEE PATHOLOGY REPORT
[2019-05-16 18:42] LABS: Body Fluid Mononuclear WBC # 0.481 10^3/uL; Body Fluid Mononuclear WBC % 86.5 %; Body Fluid Polynuclear WBC # 0.075 10^3/uL; Body Fluid Polynuclear WBC % 13.5 %; White Blood Count/Body Fluid 0.556 10^3/uL
[2019-05-16 20:51] LABS: Auto B Fluid Analyzer BKGD Ct COUNTS W/IN LIMITS (W/IN LIMITS); Color/Body Fluid LT YEL; Source- Body Fluid OTHER
[2019-05-16 20:52] LABS: Appearance/Body Fluid SL CLDY
[2019-05-16 21:02] LABS: Lymphocytes 68 %; Monocytes 6 %; Neutrophil (Segs) 20 %; Other Cell Type/BF 6 %
[2019-05-16 21:07] LABS: Body Fluid QC Type(s) BF3Q
[2019-05-18 09:58] LABS: Pathologist Comment/Body Fluid Reviewed
== END ==
PROVIDERS: Referring Provider Surgery; Visit Provider Surgery
DX: J90 Pleural effusion, not elsewhere classified (principal); R35.8 Other polyuria
CPT/HCPCS: 87070; 87075; 87077; 87205; 88108; 88305; 88313; 89050

== ENCOUNTER 2019-06-24 14:12 | Emergency (ER) | payer MEDICARE, SELFPAY ==
[2019-06-20 14:12] VITALS: BMI 27.9
[2019-06-24 14:13] VITALS: BP 172/70; PULSE 50; RESP 12; TEMP 36.9; O2SAT 99; BMI 27.8
--- NOTE | 2019-06-24 14:23 | EKG12_ITS ---
Test Reason : CP Blood Pressure : / mmHG Vent. Rate : 050 BPM Atrial Rate : 050 BPM P-R Int : 172 ms QRS Dur : 102 ms QT Int : 494 ms P-R-T Axes : 040 -27 029 degrees QTc Int : 450 ms Sinus bradycardia with Premature atrial complexes Otherwise normal ECG Confirmed by VALE PEREZ, EVELIN ([id number]), engineer/conductor KARMA SAMPSON ([id number]) on 06/26/2019 1:56:47 PM Referred By: AGATA/KARYN Confirmed By:LORA COLLAZO MD
--- NOTE | 2019-06-24 14:23 | RAD_ITS ---
STUDY: X-RAY CHEST REASON FOR EXAM: Male, 83 years old. Shortness of breath TECHNIQUE: PA and lateral views of the chest. COMPARISON: 05/01/2019 FINDINGS: EKG leads project over the chest. Right shoulder replacement is stable. There are interstitial fibrotic changes of the lung bases. Mildly increased perfusion of the right lung base. Pleurx drainage catheter noted. Normal size heart. Normal mediastinum and monalisa. Normal visualized pulmonary arteries. There is atherosclerotic calcification of the aortic arch with tortuosity. There are diffuse degenerative changes of the visualized thoracic spine. There are degenerative changes of the left shoulder. There is no demonstrated abnormality of the visualized soft tissue structures of the upper abdomen. RAD/Chest PA and Lateral IMPRESSION: 1. Slight increased volume of right pleural effusion. Pleurx catheter. 2. Bibasilar fibrotic scarring. Electronically Signed: Jesús Lange MD at 15:33 EDT , Service support ,
--- NOTE | 2019-06-24 14:31 | ED.DCSUM_ITS ---
History of Present Illness Informant: Patient, Spouse/S.O. Onset: Weeks - 1 week Activity at onset: Rest Timing: Intermittent Quality: Burning Location: Substernal Current Severity: Mild Maximum Severity: Moderate Worsened By: Eating Relieved By: Rest Associated Symptoms: Nausea, - - abdominal pain Narrative: 83-year-old male presents with 1 week of chest pain and abdominal pain. It is worse with eating and not exertional. Patient has no shortness of breath or cough fevers lightheadedness diaphoresis or vomiting but has been nauseated with decreased appetite. No diarrhea melena or hematochezia. No urinary symptoms. He has not been lightheaded or dizzy. No constitutional symptoms. He does have a chronic right-sided pleural catheter chronically that is overdue to be drained by about a week. Prior Similar Symptoms: Yes Recent Illness/Hospitalization: No CVD Risk Factors: Hypertension, Hypercholesterolemia PE Risk Factors: Negative for: Recent Travel/Surgery, Recenet Immobilization, Prior DVT or PE, Cancer, OCP + Smoking + >/=35 TAD Risk Factors: Negative for: Marfan's Syndrome, Hypertension, Family History <Mauro Elizabeth - Last Filed: 06/24/19 16:33> <Josue Rajan - Last Filed: 06/24/19 16:56> Chief Complaint: Chest Pain Past Medical History Prior records reviewed: Yes Past Medical History: - - Hypertension, hyperlipidemia, atrial fibrillation Surgical History: cholecystectomy, total knee arthroplasty Lives: Spouse/ Significant Other Smoking Status: Never smoker Alcohol: None Drugs: None - Family History Maternal Family History: Family History (Last Reviewed 06/20/19 @ 15:22 by WEI Hillman) Father CAD (coronary artery disease) Myocardial infarction Brother Diabetes Family History: Reports: No pertinent history Paternal Family History: Family History (Last Reviewed 06/20/19 @ 15:22 by WEI Hillman) Father CAD (coronary artery disease) Myocardial infarction Brother Diabetes Family History: Reports: No pertinent history <Mauro Elizabeth - Last Filed: 06/24/19 16:33> - Family History Maternal Family History: Family History (Last Reviewed 06/20/19 @ 15:22 by WEI Hillman) Father CAD (coronary artery disease) Myocardial infarction Brother Diabetes Paternal Family History: Family History (Last Reviewed 06/20/19 @ 15:22 by WEI Hillman) Father CAD (coronary artery disease) Myocardial infarction Brother Diabetes <Josue Rajan - Last Filed: 06/24/19 16:56> - Allergies and Home Meds Allergies/Adverse Reactions: Allergies cimetidine HCl [From Tagamet] Allergy (Verified 06/24/19 14:17) Rash ciprofloxacin [From Cipro] Allergy (Verified 06/24/19 14:17) Rash amoxicillin trihydrate [From Augmentin] Adverse Reaction (Verified 06/24/19 14:17) Abd cramps/diarrhea cefdinir [From Omnicef] Adverse Reaction (Verified 06/24/19 14:17) Diarrhea indomethacin sodium [From Indocin] Adverse Reaction (Verified 06/24/19 14:17) Nausea memantine HCl [From Namenda] Adverse Reaction (Verified 06/24/19 14:17) dizziness potassium clavulanate [From Augmentin] Adverse Reaction (Verified 06/24/19 14:17) Abd cramps/diarrhea sitagliptin phosphate [From Januvia] Adverse Reaction (Verified 06/24/19 14:17) Nausea Primary Care Physician: Pedro Marie MD [Primary Care Provider] - Review of Systems All systems negative except as indicated General: Denies: Chills, Fever Cardiovascular: Reports: Chest pain Gastrointestinal: Reports: Abdominal pain, Nausea <Mauro Elizabeth - Last Filed: 06/24/19 16:33> Physical Exam Vital Signs/Narrative: Vital Signs Temp Pulse Resp BP Pulse Ox 06/24/19 14:13 98.4 F 50 L 12 172/70 H 99 Inital Vital Signs reviewed: Yes General: Well nourished, Well developed, No Acute Distress Head: Normocephalic, Atraumatic Eyes: Perrl, EOMI ENT: Moist mucous membranes, No rhinorrhea Neck: Supple, Nontender, No lymphadenopathy, No JVD Cardiovascular: Regular rate, Regular rhythm Respiratory: No distress, CTA bilaterally, Chest nontender Abdomen: Soft, Nontender, Nondistended, Normal bowel sounds, No masses Back: Nontender Extremities: Nontender, No edema Skin: Normal color, No rash Neurological: Alert, Oriented x3 Psychological: Normal affect <Mauro Elizabeth - Last Filed: 06/24/19 16:33> Vital Signs/Narrative: Vital Signs Temp Pulse Resp BP Pulse Ox 06/24/19 16:44 52 L 14 196/88 H 99 06/24/19 15:37 49 L 16 145/87 H 98 06/24/19 14:13 98.4 F 50 L 12 172/70 H 99 <Josue Rajan - Last Filed: 06/24/19 16:56> Diagnostic/Tx/Re-eval Chest X-Ray - ED: 2 View, Read by ED Physician, Read by Radiologist, No Acute Disease, Right Effusion - Rhythm Strip Rhythm Strip: Sinus Rhythm Rate: 60 Ectopy: None - EKG Initial EKG Interpretation: Sinus Rhythm, No Acute Injury Pattern Prior: Unchanged - Medical Decision Making EKG was normal sinus rhythm rate of 50 bpm without any acute ischemic changes. Patient's laboratory work-up was remarkable for a creatinine of 2.00. Patient has had creatinine values in the past at this level or above and is baseline is just slightly below this at around 1.5 or 1.6. Troponin is negative. CMP and lipase unremarkable otherwise. Urinalysis negative. Chest x-ray showed his chronic right pleural effusion but it is not significant and again the patient has a catheter in place that he uses at home to drain this fluid. Patient is having stable vital signs at this time. He has had these symptoms now for about a week. Do not feel admission is indicated. I discussed this with patient and his and they are agreeable with our plan. Patient will be discharged and I advised him to follow-up with primary care. <Mauro Elizabeth - Last Filed: 06/24/19 16:33> - Medical Decision Making Patient was seen with me. I did a [id number] examination with the patient. Patient presents with lower chest and upper abdominal pain. Patient states the pain has been waxing and waning. Patient admits to some nausea but denies any vomiting. Patient denies any fevers or chills. Vital signs are stable. Patient is afebrile. Patient is in no acute distress. Oral mucosa is pink and moist. Neck is supple. Trachea is midline. There is no JVD noted. Heart was regular rate and rhythm. Lungs are clear and equal bilaterally. Abdomen is soft. There is some upper abdominal tenderness. There is no rebound or guarding noted. Cranial nerves II through XII are intact. There are no focal motor or sensory deficits noted. EKG does not show any acute changes. Chest x- ray shows a slight increase in his right pleural effusion. Basic metabolic profile shows slight increase of a creatinine to 2.0. Patient has had creatinines in the past of 2.0. Patient was instructed to follow-up with his primary care physician in 5 to 7 days. Patient and family understood and were agreeable with the plan. All questions were answered. <Josue Rajan - Last Filed: 06/24/19 16:56> ED Disposition <Mauro Elizabeth - Last Filed: 06/24/19 16:33> <Josue Rajan - Last Filed: 06/24/19 16:56> - Plan for ED Patient: Disposition: Home or Assisted Living Diagnosis: Recurrent right pleural effusion, Chest pain, Abdominal pain, Nausea Instructions: CHEST PAIN, Uncertain Cause Prescriptions: Sucralfate [Carafate] 1 gm PO 4X/DAY #28 tab Prescription Printed Referrals: Pedro Marie MD [Primary Care Provider] -
[2019-06-24 14:32] LABS: Absolute Lymphocyte Count 0.54 X10^3/uL (0.83-4.51); Absolute Neutrophil Count 8.1 X10^3/uL (2.0-7.7); Basophil# 0.04 X10^3/uL; Basophil% 0.4 % (0-1); Differential Indicated SCAN CRITERIA MET; Eosinophil# 0.11 X10^3/uL; Eosinophils% 1.1 % (0-5); Hemoglobin 14.5 g/dL (13.0-16.5); Lymphocyte # 0.54 X10^3/ul (4.0); Lymphocyte % 5.6 % (19-41); Mean Corp Hgb Conc 32.2 g/dL (32-36); Mean Corpuscular Hgb 30.1 pg (27.0-32.0); Mean Corpuscular Volume 93.4 fL (80-94); Mean Platelet Vol. 9.6 fl (6.2-12.0); Monocyte# 0.76 X10^3/uL; Monocyte% 7.9 % (0-10); NRBC Flagged by Analyzer 0 % (0-5); Neutrophil # 8.08 X10^3/uL (2.7-7.7); Neutrophil % 84.5 % (47-70); POSITIVE DIFFERENTIAL YES; Platelet Count 162 K/mm3 (150-450); RBC Distribution Width SD 44.6 fl (35.1-43.9); Red Blood Count 4.82 M/mm3 (4.6-6.2); White Blood Count 9.6 K/mm3 (4.4-11.0)
[2019-06-24 14:49] LABS: Differential Comment SCANNED
[2019-06-24 14:54] LABS: ALB/GLOB Ratio 0.7 RATIO (0.9-2.4); AST(SGOT) 16 U/L (15-37); Alanine Aminotransfer ALT/SGPT 18 U/L (16-61); Albumin, Serum 3.3 g/dL (3.2-5.0); Alkaline Phosphatase 109 U/L (45-117); Anion Gap 7 (5-15); BUN 46 mg/dL (7-18); Calcium,Total 8.8 mg/dL (8.5-10.1); Chloride 97 mmol/L (98-107); EST Glomerular Filtration Rate 34 mL/min (>60); Est Glom Filt Rate - Afr Amer 41 mL/min (>60); Estimated Creatinine Clearance 24.34 ml/min; Globulin 4.5 g/dL (2.2-4.2); Glucose 132 mg/dL (74-106); Lipase 184 U/L (73-393); Potassium 4.7 mmol/L (3.5-5.1); Protein, Total 7.8 g/dL (6.4-8.2); Sodium Level 132 mmol/L (136-145)
[2019-06-24 15:37] VITALS: BP 145/87; PULSE 49; RESP 16; O2SAT 98
[2019-06-24 15:38] LABS: Bacteria 0 SEEN /hpf (None Seen); Color, Urine Straw (Yellow); Glucose, Dipstick Normal (Normal); Ketone-Dipstick Negative (Negative); Leukocyte Esterase-Dipstick Negative /ul (Negative); Mucous, Urine 0 SEEN /hpf (<or=2+); Nitrite-Dipstick Negative (Negative); Occult Blood-Urine Negative /ul (Negative); Protein-Dipstick Negative (Negative); Red Blood Cells-Urine 0 SEEN /hpf (0-5); Squamous Epithelial Cells - UA 0 SEEN /hpf (0-5); Urine Bilirubin Dipstick Negative (Negative); Urine Clarity Clear (Clear); Urine Urobilinogen Normal (Normal); Urine pH 6.5 (5.0 - 8.0); White Blood Cells 0 SEEN /hpf (0-5)
[2019-06-24 16:44] VITALS: BP 196/88; PULSE 52; RESP 14; O2SAT 99
[2019-06-24] MEDS: 0.9% Normal Saline 1,000 ML 999 ML IV (16:47)
[2019-06-24 17:30] VITALS: BP 200/92; PULSE 53; RESP 16; O2SAT 100
== END 2019-06-24 17:35 | disposition home or self-care (01) ==
PROVIDERS: Emergency Provider Physician Assistant Medical; Family Provider Family Medicine; PCP Family Medicine
DX: J90 Pleural effusion, not elsewhere classified (principal); R07.9 Chest pain, unspecified; R10.9 Unspecified abdominal pain; R11.0 Nausea; E78.00 Pure hypercholesterolemia, unspecified; I10 Essential (primary) hypertension; I48.91 Unspecified atrial fibrillation; Z79.82 Long term (current) use of aspirin; Z79.01 Long term (current) use of anticoagulants; Z79.899 Other long term (current) drug therapy
CPT/HCPCS: 71046; 80053; 81001; 83690; 84484; 85025; 93005; 96360; 99284; J7030; A4216

== ENCOUNTER → 2019-06-26 | Outpatient (CLI) | payer MEDICARE, SELFPAY ==
[2019-06-20 14:12] VITALS: BMI 27.9
[2019-06-24 14:13] VITALS: BMI 27.8
--- NOTE | 2019-06-26 07:48 | CT_ITS ---
STUDY: CT CHEST WITHOUT CONTRAST REASON FOR EXAM: Male, 83 years old. Right pleural effusion. History of prostate cancer and radiation. RADIATION DOSAGE (If Supplied By Facility): CTDIvol = ( 15.45 ) mGy, DLP = ( 552.22 ) mGycm TECHNIQUE: Transaxial imaging was performed without the administration of intravenous contrast material. Multiplanar coronal and sagittal images were reformatted. Individualized dose optimization techniques were used for this CT. COMPARISON: Comparison is made with prior study dated May 24, 2013. FINDINGS: A Pleurx catheter is seen entering the inferior lateral portion of the right pleural space with the tip ending medially. Heterogeneous enlargement of the thyroid worse on the left side with substernal extension. The lungs are normal. Fluid is seen in the right major fissure. Parenchymal thickness There are calcifications of the coronary arteries. Prosthetic aortic valve. There are multiple small lymph nodes within the mediastinum, which are normal in size and morphology most compatible with reactive lymph hyperplasia. Normal hilar regions. Normal unenhanced pulmonary arteries. There is atherosclerotic calcification of the aortic arch with tortuosity and elongation of the aortic arch and descending thoracic aorta. 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 There are multi-level degenerative changes of the thoracic spine. Increased kyphosis. There is a 3.7 cm x 3.5 cm cyst in the upper pole of the right kidney with peripheral rim calcification. There is also evidence of multiple calcified splenic granulomas. There is a 1.5 cm x 1.3 cm hypodensity in the peripheral lateral aspect of the right lobe of the liver suggestive of a small cyst. CT/Chest without Contrast IMPRESSION: Residual pleural parenchymal changes at the right lung base with fluid in the right major fissure. This has improved as compared to prior study. Stable enlargement of the thyroid gland with substernal extension of the thyroid on the left side. Electronically Signed: Justin Castro at 15:28 EDT , Service support ,
[2019-06-26 07:55] LABS: Anion Gap 5 (5-15); BUN 51 mg/dL (7-18); BUN/Creat Ratio 22.3 RATIO (10-20); Calcium,Total 8.9 mg/dL (8.5-10.1); Chloride 100 mmol/L (98-107); Creatinine, Serum 2.29 mg/dL (0.70-1.30); EST Glomerular Filtration Rate 29 mL/min (>60); Est Glom Filt Rate - Afr Amer 35 mL/min (>60); Glucose 153 mg/dL (74-106); Potassium 4.7 mmol/L (3.5-5.1); Sodium Level 134 mmol/L (136-145)
[2019-06-26 08:02] LABS: Hemoglobin A1c 7.2 % (4.2-6.3)
== END | disposition home or self-care (01) ==
PROVIDERS: Physician Assistant Medical; Family Provider Family Medicine; PCP Family Medicine; Referring Provider Nurse Practitioner Acute Care; Visit Provider Nurse Practitioner Acute Care
DX: I50.32 Chronic diastolic (congestive) heart failure (principal); E11.9 Type 2 diabetes mellitus without complications; J90 Pleural effusion, not elsewhere classified
CPT/HCPCS: 36415; 71250; 80048; 83036

== ENCOUNTER 2019-07-03 21:55 | Inpatient (IN) | payer MEDICARE, SELFPAY ==
[2019-07-03 21:57] VITALS: BP 153/81; PULSE 67; RESP 18; TEMP 36.1; O2SAT 98; BMI 27.4
--- NOTE | 2019-07-03 22:53 | ED.DCSUM_ITS ---
- ER Visit Summary Date of Service: 07/03/19 Chief Complaint: Bright red blood per rectum History of Present Illness: The patient is a 83 M presenting with bright red blood per rectum. Patient and states this started tonight. He noticed blood in the toilet. She gave him a suppository and then he passed a large clot. She repeated this and he passed another clot. Denies lightheadedness or syncope. Denies abdominal pain. He has nausea with no vomiting. He complains of mild shortness of breath. Denies chest pain. Complains of subjective fever. Denies other complaints. He is on Coumadin for history of A. fib. Physical Examination: Vitals are stable. Patient is afebrile. Alert no acute distress. HEENT exam is unremarkable. Neck is supple. Lungs are clear and equal bilaterally. Heart is regular rate and rhythm. Abdomen is soft mild diffuse tenderness with no rebound or guarding Rectal: Gross blood Extremities are unremarkable. Skin is warm and dry. No focal neurologic deficit. Remainder of exam is unremarkable. Emergency Department Course and Treatment: Patient was given Zofran IV. CBC shows hemoglobin 12.3, platelet 145. Chemistries show potassium 5.2, glucose 195, BUN 58, creatinine 2.37. Lipase 494. INR 3.2. Urinalysis unremarkable. Chest x-ray shows right lower lung consolidation and effusion. Patient has history of chronic pleural effusion and has right tunneled pleural catheter. CT abdomen/pelvis shows loculated right pleural effusion with tunneled pleural drainage catheter in place, not significantly changed compared to prior imaging. Simple and complex bilateral renal cysts, unchanged from prior imaging. 1.8 cm hypoattenuated lesion within the peripheral aspect of the right anterior hepatic segment, increased in size compared to prior imaging and concerning for a metastatic lesion. Moderate descending and sigmoid colonic diverticulosis with no evidence of acute diverticulitis. Patient has had 2 additional bloody bowel movements in the emergency department. Discussed with Dr. Giang and the hospitalist and patient will be admitted. Disposition: Admission Impression: GI bleed This note was generated with [employer] dictation software. It may contain incorrect words, spelling, and punctuation that were not noted in review of the chart prior to signing ED Disposition - Plan for ED Patient: Referrals: Pedro Marie MD [Primary Care Provider] -
--- NOTE | 2019-07-03 22:55 | RAD_ITS ---
STUDY: X-RAY CHEST REASON FOR EXAM: Male, 83 years old. Shortness of breath. TECHNIQUE: Single AP portable view of the chest. COMPARISON: June 24, 2019. FINDINGS: There are monitoring devices. There are right mid and lower lung airspace opacities. There is moderate right pleural effusion with partial loculation along the fissure Normal size heart. Normal mediastinum and monalisa. Normal visualized pulmonary arteries. There is atherosclerotic calcification of the aortic arch with tortuosity. Normal visualized thoracic spine. There is right shoulder replacement. There is no demonstrated abnormality of the visualized soft tissue structures of the upper abdomen. RAD/Chest 1 View (Portable) IMPRESSION: Right lower lung consolidation and effusion. Electronically Signed: Ata Goodman MD at 23:29 EDT , Service support ,
[2019-07-03 23:17] LABS: Absolute Lymphocyte Count 0.69 X10^3/uL (0.83-4.51); Absolute Neutrophil Count 7.4 X10^3/uL (2.0-7.7); Basophil# 0.08 X10^3/uL; Basophil% 0.9 % (0-1); Eosinophil# 0.22 X10^3/uL; Eosinophils% 2.4 % (0-5); Hematocrit 38.1 % (40-54); Hemoglobin 12.3 g/dL (13.0-16.5); Lymphocyte # 0.69 X10^3/ul (4.0); Lymphocyte % 7.6 % (19-41); Mean Corp Hgb Conc 32.3 g/dL (32-36); Mean Corpuscular Hgb 29.8 pg (27.0-32.0); Mean Corpuscular Volume 92.3 fL (80-94); Mean Platelet Vol. 10.1 fl (6.2-12.0); Monocyte# 0.62 X10^3/uL; Monocyte% 6.9 % (0-10); NRBC Flagged by Analyzer 0 % (0-5); Neutrophil # 7.36 X10^3/uL (2.7-7.7); Neutrophil % 81.3 % (47-70); Platelet Count 145 K/mm3 (150-450); RBC Distribution Width CV 13.1 % (11.6-14.6); RBC Distribution Width SD 44.1 fl (35.1-43.9); Red Blood Count 4.13 M/mm3 (4.6-6.2); White Blood Count 9.1 K/mm3 (4.4-11.0)
[2019-07-03] MEDS: Ondansetron 4 MG/2 ML Vial IV (23:28)
[2019-07-03 23:33] LABS: International Normalized Ratio 3.2; Prothrombin Time (Protime)PT. 32.9 SECONDS (11.7-14.9)
[2019-07-03 23:37] LABS: ALB/GLOB Ratio 0.7 RATIO (0.9-2.4); AST(SGOT) 17 U/L (15-37); Alanine Aminotransfer ALT/SGPT 23 U/L (16-61); Albumin, Serum 2.9 g/dL (3.2-5.0); Alkaline Phosphatase 120 U/L (45-117); Anion Gap 7 (5-15); BUN 58 mg/dL (7-18); BUN/Creat Ratio 24.5 RATIO (10-20); Calcium,Total 8.3 mg/dL (8.5-10.1); Chloride 102 mmol/L (98-107); Creatinine, Serum 2.37 mg/dL (0.70-1.30); EST Glomerular Filtration Rate 28 mL/min (>60); Est Glom Filt Rate - Afr Amer 34 mL/min (>60); Estimated Creatinine Clearance 20.54 ml/min; Globulin 3.9 g/dL (2.2-4.2); Glucose 195 mg/dL (74-106); Lipase 494 U/L (73-393); Potassium 5.2 mmol/L (3.5-5.1); Protein, Total 6.8 g/dL (6.4-8.2); Sodium Level 136 mmol/L (136-145)
[2019-07-04] VITALS (14 sets, daily range): BP systolic 84–148; BP diastolic 40–72; PULSE 51–64; RESP 8–20; TEMP 36.4–36.7; O2SAT 95–99; BMI 26.7; BMI 26.0
--- NOTE | 2019-07-04 00:20 | ED.RN ---
DR PACHECO AWARE THAT PT USED [facility] AND THERE WAS 3-400ML/ OF JAQUI RED BLOOD W/CLOTS PRESENT.
[2019-07-04 00:58] LABS: Bacteria 0 SEEN /hpf (None Seen); Mucous, Urine 0 SEEN /hpf (<or=2+); Red Blood Cells-Urine 0 SEEN /hpf (0-5); Squamous Epithelial Cells - UA 0 SEEN /hpf (0-5)
[2019-07-04 00:59] LABS: Color, Urine Yellow (Yellow); Glucose, Dipstick Normal (Normal); Ketone-Dipstick Negative (Negative); Leukocyte Esterase-Dipstick 25 /ul (Negative); Nitrite-Dipstick Negative (Negative); Occult Blood-Urine Negative /ul (Negative); Protein-Dipstick 15 mg/dl (Negative); Urine Bilirubin Dipstick Negative (Negative); Urine Clarity Clear (Clear); Urine Urobilinogen Normal (Normal)
[2019-07-04 01:09] LABS: Hyaline Cast 10-25 SEEN /lpf (0-5); White Blood Cells 0-5 SEEN /hpf (0-5)
--- NOTE | 2019-07-04 02:08 | ED.RN ---
dr sexton notified of pt having a 500cc bright red bloody stool
--- NOTE | 2019-07-04 03:07 | PCM.HP.STD ---
Problem List (1) BRBPR (bright red blood per rectum) Status: Acute (2) Shortness of breath Status: Inactive (3) (HFpEF) heart failure with preserved ejection fraction Status: Chronic Qualifiers: Heart failure chronicity: acute Qualified Code(s): I50.31 - Acute diastolic (congestive) heart failure (4) Chronic diastolic (congestive) heart failure Status: Chronic History of Present Illness Date of Admission: 07/04/19 Chief Complaint: bright red blood per rectum The patient is a 83 year old M with a significant history of dementia; chronic diastolic congestive heart failure; CKD stage III; nonrheumatic aortic stenosis; nonrheumatic tricuspid valve insufficiency; nonrheumatic mitral valve insufficiency; paroxysmal A. fib who presented to the emergency department with 1 day history of bright red blood per rectum and multiple clots. Associated with her symptoms is nausea; vomiting and diarrhea. His initially told the patient was having a hemorrhoid so his gave the patient's suppository that the uses. A CT of the abdomen showed loculated right pleural effusion; unchanged renal cyst; and increase in size of hepatic lesion; as well as colonic diverticulosis with no evidence of acute diverticulitis. Past Medical History Past Medical History (Chronic Problems): Chronic Problems (Last Reviewed 07/04/19 @ 07:20 by Ramone Dutta MD) Placement of right tunnelled pleurex catheter (Chronic 02/21/19) for recurrent right pleural effusion per Dr. Tyrell Santizo on 02/21/2019 Valvular heart disease (Chronic) (HFpEF) heart failure with preserved ejection fraction (Chronic) Nonrheumatic mitral (valve) insufficiency (Chronic) Non-rheumatic tricuspid valve insufficiency (Chronic) Non-rheumatic aortic stenosis (Chronic) History of left heart catheterization (Chronic ~01/2014) 05/02/[address] Robertson [facility]; 01/29/[address] 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) Hypertension (Chronic) Chronic renal failure, stage 3 (moderate) (Chronic) History of anxiety disorder (Chronic) Generalized osteoarthritis (Chronic) History of gout (Chronic) Mild dementia (Chronic) Rheumatoid arthritis (Chronic) Diabetes mellitus, type II (Chronic) Generalized weakness (Chronic) History of prostate cancer (Chronic) Status post radiotherapy Anemia of chronic disease (Chronic) due to CRF and RA PAF (paroxysmal atrial fibrillation) (Chronic) Medical History: Medical History (Last Reviewed 07/04/19 @ 07:20 by Ramone Dutta MD) Nonrheumatic mitral (valve) insufficiency (Chronic) I34.0 Non-rheumatic tricuspid valve insufficiency (Chronic) I36.1 Non-rheumatic aortic stenosis (Chronic) I35.0 Chronic diastolic (congestive) heart failure (Acute) I50.32 History of pleural effusion (Chronic) Z87.09 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 (Chronic) long-term current use of 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) Z79.01 Hypertension (Chronic) I10 Chronic renal failure, stage 3 (moderate) (Chronic) N18.3 History of anxiety disorder (Chronic) Z86.59 Generalized osteoarthritis (Chronic) M15.9 History of gout (Chronic) Z87.39 Mild dementia (Chronic) F03.90 Rheumatoid arthritis (Chronic) M06.9 Diabetes mellitus, type II (Chronic) E11.9 History of prostate cancer (Chronic) Status post radiotherapy Anemia of chronic disease (Chronic) D63.8 due to CRF and RA PAF (paroxysmal atrial fibrillation) (Chronic) I48.0 Syncope and collapse R55 Allergies cimetidine HCl [From Tagamet] Allergy (Verified 07/03/19 21:59) Rash ciprofloxacin [From Cipro] Allergy (Verified 07/03/19 21:59) Rash amoxicillin trihydrate [From Augmentin] Adverse Reaction (Verified 07/03/19 21:59) Abd cramps/diarrhea cefdinir [From Omnicef] Adverse Reaction (Verified 07/03/19 21:59) Diarrhea indomethacin sodium [From Indocin] Adverse Reaction (Verified 07/03/19 21:59) Nausea memantine HCl [From Namenda] Adverse Reaction (Verified 07/03/19 21:59) dizziness potassium clavulanate [From Augmentin] Adverse Reaction (Verified 07/03/19 21:59) Abd cramps/diarrhea sitagliptin phosphate [From Januvia] Adverse Reaction (Verified 07/03/19 21:59) Nausea Home Medications: Ambulatory Orders Medication Instructions Recorded Cholecalciferol (Vitamin D3) 1,000 unit PO DAILY 12/25/13 [Vitamin D3] Aspirin [Aspirin, Baby] 81 mg PO QHS 11/17/14 Cyanocobalamin [Vitamin B12] 1,000 mcg PO DAILY@0800 11/17/14 Pantoprazole Sodium [Protonix] 40 mg PO DAILY 11/17/14 Loratadine 10 mg PO DINNER PRN 03/15/17 magnesium oxide 400 mg (241.3 mg 400 mg PO DAILY 12/30/17 magnesium) tablet Ascorbic Acid [Vitamin C] 1,000 mg PO LUNCH 12/20/18 Galantamine HBr 16 mg PO DAILY 12/20/18 Tamsulosin HCl [Flomax] 0.4 mg PO DINNER 12/20/18 warfarin 2 mg tablet 3 mg PO DINNER tab 12/27/18 ferrous sulfate 325 mg (65 mg 325 mg PO LUNCH tab 01/02/19 iron) tablet lisinopril 40 mg tablet 20 mg PO DAILY tab 01/02/19 Calcium Carbonate [Calcium] 600 mg PO DAILY 01/26/19 carvedilol 6.25 mg tablet 6.25 mg PO BID #180 tab 03/03/19 Amiodarone HCl 200 mg PO DAILY 03/10/19 Furosemide [Lasix] 40 mg PO BID@1000,1800 04/15/19 Finasteride [Proscar] 5 mg PO DINNER 04/17/19 spironolactone 25 mg tablet 25 mg PO DAILY #30 tab 06/09/19 albuterol sulfate 2.5 mg/3 mL 2.5 mg INHALATION Q4H PRN #180 ml 06/21/19 (0.083 %) solution for nebulization Buspirone HCl 10 mg PO BID 06/24/19 Nitroglycerin 0.4 mg SL X1 PRN 06/24/19 Potassium 595 mg PO LUNCH 06/24/19 Sucralfate [Carafate] 1 gm PO TID 07/03/19 Surgical History: Surgical History (Last Reviewed 07/04/19 @ 04:02 by Ramone Dutta MD) Recurrent right pleural effusion (Acute) Onset Date: 02/15/19 J90 Placement of right tunneled pleural catheter (pleurex) with ultrasound guidance per Dr. Santizo 02/15/2019 History of left heart catheterization (Chronic) Onset Date: ~01/2014 Z98.890 05/02/[address] Robertson [facility]; 01/29/[address] Porter at [facility]: coronaries angiographically normal, pulmonary htn by RV eval, EF at that time was 45-50% History of bilateral inguinal hernia repair Z98.890, Z87.19 History of cholecystectomy Onset Date: ~1989 Z90.49 History of left knee replacement Z96.652 History of right shoulder replacement Z96.611 History of tonsillectomy Z90.89 Surgical History: cholecystectomy, total knee arthroplasty Psychiatric History: No pertinent psych hx Lives: Spouse/ Significant Other Smoking Status: Never smoker Alcohol: None - *Family History Maternal Family History: Family History (Last Reviewed 07/04/19 @ 04:03 by Ramone Dutta MD) Father CAD (coronary artery disease) Myocardial infarction Brother Diabetes History Items: No pertinent history Paternal Family History: Family History (Last Reviewed 07/04/19 @ 04:03 by Ramone Dutta MD) Father CAD (coronary artery disease) Myocardial infarction Brother Diabetes History Items: No pertinent history Review of Systems Constitutional: Denies: Chills, Fever, Weight Change HEENT: Denies: Head Aches, Sinus Congestion, Sinus Drainage Cardiovascular: Denies: Chest Pain, Palpitations Respiratory: Denies: Cough, Shortness of breath at rest, Sputum production Gastrointestinal: Reports: Abdominal Pain, Diarrhea, Nausea, Vomiting Genitourinary: Denies: Dysuria Musculoskeletal: Denies: Joint Pain, Joint Tenderness Skin: Denies: Rash, Wounds Neurological: Denies: Numbness, Tingling, Focal weakness Psychiatric: Denies: Anxiety, Depression, Homicidal Ideations, Suicidal Ideations Hematologic/ Lymphatic: Denies: Easy Bruising, Easy Bleeding VTE Information - Inpt Only VTE Present on Admission: No VTE Mechan Device Prophylaxis: SCD's VTE Pharm Prophylaxis ordered?: No Patient Problems: Active and Suspected Problems (Last Reviewed 07/04/19 @ 07:20 by Ramone Dutta MD) BRBPR (bright red blood per rectum) (Acute) - Physical Exam General: Alert, Oriented x3, Cooperative HEENT: Atraumatic, PERRLA, EOMI, Normocephalic Neck: Supple, No JVD, Negative Carotid Bruits Lungs: Clear to auscultation, Normal air movement Cardiovascular: Regular rate, No murmurs Abdomen: Bowel Sounds Present, Soft, Non Tender Extremities: No edema, Capillary Refill Less than 3 Seconds Skin: No rashes, No breakdown Musculoskeletal: No Tenderness to Palpation of Joints or Extremities Neurological: Cranial nerves II-XII grossly intact - EXCEPT that patient is hard of hearing Psych/Mental Status: Normal Affect, Appropriate Vital Signs Temp Pulse Resp BP Pulse Ox 96.9 F L 57 L 8 L 148/66 H 98 07/03/19 21:57 07/04/19 00:32 07/04/19 00:32 07/04/19 00:32 07/04/19 00:32 Oxygen Delivery Method Room Air Weight: 74.843 kg Body Mass Index (BMI) 27.4 Finger Stick Blood Glucose 128 Microbiology Past 72 Hours 07/03/19 22:51 Stool Occult Blood (NUZHAT) - Final Stool Occult Blood Positive Laboratory Tests Past 24 Hrs 07/03/19 07/03/19 07/03/19 23:00 23:00 23:00 WBC 9.1 RBC 4.13 L Hgb 12.3 L Hct 38.1 L MCV 92.3 MCH 29.8 MCHC 32.3 RDW Std Deviation 44.1 H RDW Coeff of Juan Carlos 13.1 Plt Count 145 L MPV 10.1 Immature Gran % (Auto) 0.900 Neut % (Auto) 81.3 H Lymph % (Auto) 7.6 L Alpine % (Auto) 6.9 Eos % (Auto) 2.4 Baso % (Auto) 0.9 Absolute Neuts (auto) 7.4 Absolute Lymphs (auto) 0.69 L Nucleated RBC % 0 PT 32.9 H INR 3.2 Sodium 136 Potassium 5.2 H Chloride 102 Carbon Dioxide 27.0 Anion Gap 7 BUN 58 H Creatinine 2.37 H Estim Creat Clear Calc 20.54 Est GFR (MDRD) Af Amer 34 L Est GFR (MDRD) Non-Af 28 L BUN/Creatinine Ratio 24.5 H Glucose 195 H Calcium 8.3 L Total Bilirubin 0.40 AST 17 ALT 23 Alkaline Phosphatase 120 H Total Protein 6.8 Albumin 2.9 L Globulin 3.9 Albumin/Globulin Ratio 0.7 L Lipase 494 H Urine Color Urine Clarity Urine pH Ur Specific [place] Urine Protein Urine Glucose (UA) Urine Ketones Urine Occult Blood Urine Nitrite Urine Bilirubin Urine Urobilinogen Ur Leukocyte Esterase Urine RBC Urine WBC Ur Squamous Epith Cells Urine Bacteria Hyaline Casts Urine Mucus 07/04/19 00:50 WBC RBC Hgb Hct MCV MCH MCHC RDW Std Deviation RDW Coeff of Juan Carlos Plt Count MPV Immature Gran % (Auto) Neut % (Auto) Lymph % (Auto) Al[place] % (Auto) Eos % (Auto) Baso % (Auto) Absolute Neuts (auto) Absolute Lymphs (auto) Nucleated RBC % PT INR Sodium Potassium Chloride Carbon Dioxide Anion Gap BUN Creatinine Estim Creat Clear Calc Est GFR (MDRD) Af Amer Est GFR (MDRD) Non-Af BUN/Creatinine Ratio Glucose Calcium Total Bilirubin AST ALT Alkaline Phosphatase Total Protein Albumin Globulin Albumin/Globulin Ratio Lipase Urine Color Yellow Urine Clarity Clear Urine pH 5.0 Ur Specific [place] 1.020 Urine Protein 15 H Urine Glucose (UA) Normal Urine Ketones Negative Urine Occult Blood Negative Urine Nitrite Negative Urine Bilirubin Negative Urine Urobilinogen Normal Ur Leukocyte Esterase 25 H Urine RBC 0 SEEN Urine WBC 0-5 SEEN Ur Squamous Epith Cells 0 SEEN Urine Bacteria 0 SEEN Hyaline Casts 10-25 SEEN Urine Mucus 0 SEEN Assessment/Plan All Active Problems (Last Reviewed 07/04/19 @ 07:20 by Ramone Dutta MD) BRBPR (bright red blood per rectum) (Acute) Recurrent right pleural effusion (Acute 02/15/19) Community acquired bacterial pneumonia (Acute) Atrial fibrillation (Acute) Pleural effusion (Acute) Renal insufficiency (Acute) Pleural effusion (Acute) Chest pain (Resolved) Dehydration (Resolved) Hypomagnesemia (Resolved) The patient is a 83 year old M with a significant history of dementia; chronic diastolic congestive heart failure; CKD stage III; nonrheumatic aortic stenosis; nonrheumatic tricuspid valve insufficiency; nonrheumatic mitral valve insufficiency; paroxysmal A. fib who presented to the emergency department with 1 day history of bright red blood per rectum and multiple clot consistent with probable diverticular bleed. Probable diverticular bleed Trend H&H Hold aspirin and warfarin. We will give 5 mg of vitamin K sublingual. Type and cross ordered N.p.o. except meds. Emergency department doctor discussed the case with Dr. Giang who was interested to follow. Will consult Dr. Giang. CARMEN on CKD stage III On presentation his creatinine was 2.37. Review of old records shows creatinine baseline around 1.8. Likely prerenal from dehydration we will hold home Lisinopril; Aldactone and Lasix as well as potassium. We will give gentle IV fluids. Avoid nephrotoxins Trend BMP. Elevated lipase Differential diagnoses include mild pancreatitis or could be reactive IV fluids as above Hepatic lesion CT of the abdomen showed enlarged hepatic lesion. At this point because of CARMEN CT of the abdomen hepatic protocol was not ordered. Consider discussing the case with nephrology and oncology. Proximal A. fib Amiodarone continued Warfarin on hold secondary to bright red blood per rectum Vitamin K was given to advance warfarin. Hypertension His blood pressure was not within goal Lisinopril; Lasix and Aldactone held secondary to CARMEN. Carvedilol continued Dementia Galatamine continued DVT prophylaxis SCD Code Visit Inpatient E&M: 70165 Init Hosp L3
--- NOTE | 2019-07-04 03:13 | ED.RN ---
PT ASSISTED BACK FROM [facility] AND 100-200 OF BLOOD OBSERVED IN COMMODE
[2019-07-04] MEDS: 0.9% Normal Saline 1,000 ML 75 ML IV (04:15)
[2019-07-04 04:20] LABS: Bedside Glucose 178 mg/dL (70-110)
[2019-07-04 04:32] LABS: Hematocrit 33.7 % (40-54); Hemoglobin 11.1 g/dL (13.0-16.5)
[2019-07-04 04:55] LABS: Anion Gap 8 (5-15); BUN 58 mg/dL (7-18); BUN/Creat Ratio 25.2 RATIO (10-20); Chloride 105 mmol/L (98-107); EST Glomerular Filtration Rate 29 mL/min (>60); Est Glom Filt Rate - Afr Amer 35 mL/min (>60); Estimated Creatinine Clearance 21.17 ml/min; Glucose 176 mg/dL (74-106); Sodium Level 140 mmol/L (136-145)
[2019-07-04] MEDS: Phytonadione (Vit K) 10 MG/ML Ampul 5 MG PO (04:57)
[2019-07-04 05:51] LABS: Bedside Glucose 157 mg/dL (70-110)
[2019-07-04] MEDS: Galantamine Hydrobromide 4 MG Tablet 8 MG PO ×2 (08:16→20:35)
[2019-07-04] MEDS: Amiodarone 200 MG Tablet PO (08:17)
[2019-07-04] MEDS: busPIRone 5 MG Tablet 10 MG PO ×2 (08:17→20:35)
[2019-07-04] MEDS: Carvedilol 6.25 MG Tablet PO (08:17)
[2019-07-04 10:09] LABS: Hematocrit 32.2 % (40-54); Hemoglobin 10.6 g/dL (13.0-16.5)
[2019-07-04] MEDS: Ondansetron 4 MG/2 ML Vial IV ×3 (10:40→20:35)
--- NOTE | 2019-07-04 10:40 | CASEMGMT ---
Patient has a Healthcare POA and Healthcare LW in e-chart. Documents were printed and placed in chart. Camila MUKHERJEE
[2019-07-04 11:30] LABS: Bedside Glucose 145 mg/dL (70-110)
--- NOTE | 2019-07-04 11:37 | CASEMGMT ---
YANG CHAMBERS assessment: Face to Face with patient for initial transition planning/care coordination assessment. YANG CHAMBERS introduced self and role at [facility], pt voices understanding and consents to assessment at this time. Pt is sitting up in bed in no distress at this time. Pt is A/Ox4 at this time and answers all questions appropriately at this time. Pt's is at bedside and assists with answering questions at times. Care providers, pharmacy, and demographics verified at this time. PCP: Pedro Marie Specialists: Keila, neuro; Lara, uro; German, cardio Preferred Pharmacy: [facility] Insurance: [facility] Prescription Benefit: [facility] Living Will/HPOA: Pt states has LW/HPOA and they are on file at [facility] at this time. Pt's , Marbella Gay, is HPOA. LNOK: Marbella Gay, ; Hemant Gay, son Living Arrangements: Pt lives with in 1.5story home with 2 steps into home and pt states no concerns at home at this time. Pt is independent with ADL's and states she rarely helps pt. Transportation: Pt states drives self and states no transportation concerns at this time. DME/HHC: Pt has the following DME: cane, raised toilet seat, grab bars, shower chair, cpap, and nebulizer thru [facility]. Pt/ states no need for any further DME at this time. Pt is current with [facility] and has had [facility] in the past. Pt/ state no SNF in the past. Pt/ state no concerns with pt going home at time of discharge. Pt is retired. Pt does not smoke or drink ETOH. Pt voices no further questions/concerns/needs at this time. CM to follow PT/OT and for any further discharge planning/needs. Advised pt to ask for CM if any further questions/concerns/needs arise, voices understanding. Pt Goal: Home Plan: Home, pending PT/OT evals. Princess SORIA CM
--- NOTE | 2019-07-04 11:38 | PCM.PN.BLA ---
Progress Note Patient admitted this morning with GI bleed. He has had more than 6 bloody bowel movement. Denied any abdominal pain or dizziness or palpitation. Vitals have remained stable. Drop in H&H from 12.3-10.6 Kept n.p.o. Discussed with Dr. Giang, the patient on a liquid diet, continue to monitor, trend H&H Colonoscopy tomorrow Add IV PPI twice daily Repeat INR is 2.4. He is off coumadin.
[2019-07-04 12:21] LABS: International Normalized Ratio 2.4; Prothrombin Time (Protime)PT. 26.5 SECONDS (11.7-14.9)
[2019-07-04] MEDS: 0.9% Normal Saline 1,000 ML 125 ML IV (14:24)
--- NOTE | 2019-07-04 16:09 | PCM.CONS.B ---
- Consult Date of Consult: 07/04/19 HISTORY AND PHYSICAL ? Tyrell Gay 1935 ? ? CHIEF COMPLAINT: ??GI bleeding ? HPI: I am seeing this patient for surgical consultation in conjunction with Dr. Isabella Giang. Patient presented to the emergency department at [facility] on 07/04/19 for rectal bleeding x 1 day. Notes had several episodes of feeling urge to have bowel movement, then passing just bright red blood and/or large clots with little to no stool. Associated symptoms include nausea and lack of appetite x 4 weeks. He has also been having looser stools than usual. He denies any abdominal pain or dizziness with these episodes. Denies fever or chills. Patient had a CT scan of the abdomen and pelvis in the emergency department which showed right pleural effusion, diverticulosis without evidence of diverticulitis, renal cysts, and a 1.8 cm hypoattenuated lesion of the liver increased in size from prior scan. Patient was admitted for monitoring, was noted to have drop in hemoglobin from 12.3 to 10.6. General surgery was consulted for further evaluation. Patient's past medical history is significant for dementia, chronic kidney disease stage III, paroxysmal atrial fibrillation, chronic diastolic mediated congestive heart failure and valvular heart disease with concerns of aortic valve stenosis pulmonary hypertension, recurrent right pleural effusion. Tyrell has previously had a PleurX catheter placed by Dr. Santizo in January 2019 for the recurrent pleural effusion. ? Patient denies problems with sedation in the past. ? PAST?MEDICAL?HISTORY PAST MEDICAL HISTORY Diagnosis Date ? Anemia, unspecified ? ? Atrial fibrillation (HCC) ? ? Benign neoplasm of stomach ? ? Diarrhea ? ? Essential hypertension, benign ? ? Irritable bowel syndrome ? ? Prostate CA (HCC) ? ? Type II or unspecified type diabetes mellitus with unspecified complication, not stated as uncontrolled ? ? Urinary frequency ? ? ? PAST?SURGICAL?HISTORY PAST SURGICAL HISTORY Procedure Laterality Date ? CATARACT EXTRACTION HX ? ? ? COLONOSCOP W/ OR W/O [facility] SPEC ? 1991 and 2000 ? Colonoscopy ? COLONOSCOPY W/BX ? 03/14/10 ? EGD W/O [facility] SPECIMEN W/BX ? 03/14/10 ? EGD W/O OR W/BRUSH/WASH ? 2001 ? EGD ? LAPAROSCOPIC CHOLEYCYSTECTOMY ? ? ? Cholecystectomy, lap ? REMOVAL OF TONSILS,<12 Y/O ? ? ? Tonsillectomy ? REPAIR INCISIONAL HERNIA,REDUCIBLE ? ? ? Hernia repair, incisional ? TOTAL KNEE REPLACEMENT ? 10/06 ? left ? ? CURRENT?MEDICATIONS ? Current Outpatient Medications: amiodarone (PACERONE) 200 mg tablet Take by mouth once daily. Disp: Rfl: amLODIPine (NORVASC) 5 mg tablet Take 5 mg by mouth once daily. Disp: Rfl: colchicine (COLCRYS) 0.6 mg tablet Take 0.6 mg by mouth three times daily as needed. Disp: Rfl: dicyclomine (BENTYL) 10 mg capsule Take 10 mg by mouth before meals and at bedtime. Disp: Rfl: lisinopril (ZESTRIL, PRINIVIL) 20 mg tablet Take 20 mg by mouth once daily. Disp: Rfl: loratadine 10 mg cap Take by mouth. Disp: Rfl: magnesium oxide 400 mg cap Take by mouth. Disp: Rfl: nitroglycerin sublingual (NITROSTAT) 0.4 mg SL tablet Dissolve 0.4 mg under the tongue every 5 minutes as needed. Disp: Rfl: pantoprazole DR (PROTONIX) 40 mg tablet Take 40 mg by mouth once daily. Disp: Rfl: tamsulosin ER (FLOMAX) 0.4 mg cap Take 0.4 mg by mouth. Disp: Rfl: furosemide (LASIX) 40 mg tablet Take 20 mg by mouth three times daily. Disp: Rfl: carvedilol (COREG) 25 mg tablet Take 6.25 mg by mouth twice daily with meals. Disp: Rfl: warfarin (COUMADIN) 2 mg tablet Take 2 mg by mouth daily as directed. Disp: Rfl: cyanocobalamin (VITAMIN B-12) 500 mcg tab Take 1 tablet by mouth once daily. Disp: Rfl: Aspirin 81 mg ORAL Tab Take one(1) tablet daily. Disp: Rfl: metFORMIN 500 mg 24 hr tablet Take 500 mg by mouth twice daily with meals. Disp: Rfl: donepezil (ARICEPT) 10 mg tablet Take 10 mg by mouth daily at bedtime. Disp: Rfl: memantine (NAMENDA) 5 mg tablet Take 5 mg by mouth twice daily. Disp: Rfl: citalopram (CELEXA) 40 mg tablet Take 40 mg by mouth once daily. Disp: Rfl: POTASSIUM CHLORIDE (KLOR-CON M20 ORAL) Take 1 tablet by mouth once daily. Disp: Rfl: mometasone-formoterol (DULERA) 100-5 mcg/actuation inhaler Inhale 2 Puffs as instructed twice daily. Disp: Rfl: CALCIUM CARBONATE/VITAMIN D3 (VITAMIN D-3 ORAL) Take 100 mg by mouth once daily. Disp: Rfl: Ferrous Sulfate 325 mg (65 mg iron) tablet Take 325 mg by mouth daily with breakfast. Disp: Rfl: albuterol HFA (PROAIR HFA) 90 mcg/actuation inhaler Inhale 2 Puffs as instructed every 4 hours as needed. Disp: Rfl: multivitamin ORAL tablet Take one(1) tablet daily. Disp: Rfl: diphenoxylate hcl/atrop sulf(LOMOTIL 2.5 MG-0.025 MG TAB) Take one(1) tablet two(2) times daily. ?as needed Disp: Rfl: 0 lisinopril/hydrochlorothiazide(PRINZIDE 20 MG-12.5 MG TAB) Take one(1) tablet daily. Disp: Rfl: 0 ? No current facility-administered medications for this visit.? ? ALLERGIES:?Amlodipine; Augmentin [Amoxicillin-Pot Clavulanate]; Cipro [Ciprofloxacin]; Indocin [Indomethacin Sodium]; Januvia [Sitagliptin]; Tagamet [Cimetidine] ? PERSONAL HISTORY:? SOCIAL?HISTORY Social History ??Socioeconomic History ?Marital status: ?Spouse name: Not on file ?Number of children: Not on file ?Years of education: Not on file ?Highest education level: Not on file ??Social Needs ?Financial resource strain: Not on file ?Food insecurity - worry: Not on file ?Food insecurity - inability: Not on file ?Transportation needs - medical: Not on file ?Transportation needs - non-medical: Not on file ??Occupational History ?Not on file ??Tobacco Use ?Smoking status: Never Smoker ??Substance and Sexual Activity ?Alcohol use: No ?Drug use: Not on file ?Sexual activity: Not on file ??Other Topics ?Concerns: ?Not on file ??Social History Narrative ?Not on file ? FAMILY HISTORY:? FAMILY?HISTORY FAMILY HISTORY Problem Relation Age of Onset ? Heart Father ?at age 71 ? REVIEW OF SYMPTOMS: General:???The patient notes fatigue, NOTES decreased appetite, denies weight loss, denies weight gain, denies feeling hot, and NOTES feelings of cold. ?Eyes: ?The patient denies glaucoma, denies eye injury/surgery, wears glasses or contacts. ?Ear/Nose/Throat: ?The patient NOTES allergies, denies hayfever, denies ear infections, and denies bloody noses. ?Cardiovascular: ?The patient NOTES history of chest pain, NOTES heart disease, NOTES high blood pressure,denies cardiac stent, denies prior heart attack, NOTES irregular heart beat, denies high cholesterol, ?denies poor circulation, denies heart failure, other cardiac issues, denies claudication, denies cold feet, denies peripheral arterial stent. ?Respiratory: ?The patient denies tuberculosis, denies pneumonia, denies frequent cough, denies pulmonary embolism, NOTES shortness of breath, and denies coughing up blood. ?Gastrointestinal: ?The patient denies difficulty swallowing, denies acid reflux, NOTES stomach ulcers in the past, denies vomiting, denies jaundice/hepatitis, NOTES gallbladder problems, denies black or tarry stools, denies hemorrhoids, NOTES bleeding from rectum, denies diverticulitis, denies constipation, NOTES diarrhea, denies loss of stool control, and NOTES hernias. ?Kidney/Bladder: ?The patient denies kidney stones, denies urine infections, and denies bloody urine. ?Skin: ?The patient denies a history of skin cancer, denies bleeding/changing moles, and denies a history of skin rash. ?Neurologic: ?The patient denies a history of epilepsy/convulsions, denies headaches, denies head/spinal injuries, and denies stroke/TIA. ?Psychiatric: ?The patient denies psychiatric medications, NOTES depression, and denies voices, denies substance abuse. ?Endocrine: ?The patient denies thyroid disorders, NOTES diabetes, and denies hormonal problems. ?Hematologic: ?The patient denies a history of bruising, denies bleeding, and denies anemia, denies blood clots. ?Infections: ?The patient NOTES a history of measles and mumps, denies rheumatic fever, and denies sexually transmitted diseases. ?Musculoskeletal: ?The patient denies back pain/injury, NOTES back problems, denies sciatica, NOTES knee/foot trouble, NOTES arthritis, or NOTES gout. ? ? ? PHYSICAL EXAMINATION: ? General: ?The patient is 83 year old male, well nourished, well hydrated in no acute distress. ?The patient is oriented to time, place, and person. HEENT: ?Normal cephalic, ataumatic, pupils are equally round, sclera are anicteric, mucous membranes are moist, oropharynx is clear. ?Neck has no masses, asymmetry or lymphadenopathy. ?Thyroid is unremarkable. ? Respiratory: ?Clear to auscultation with dullness at less than one quarter base of the right field on percussion. ?Normal respiratory excursion and pattern. ? Cardiac: ?Examination is regular rate and rhythm. ? Abdominal exam: ?Soft, nontender, ?with no palpable masses. ?No hepatosplenomegaly. ?No palpable hernias. ? Rectal exam:??exam deferred ? Extremities: ?no clubbing, cyanosis or edema. ?No adenopathy. ? Other: ? ? LABORATORY VALUES: As Noted ? RADIOLOGIC STUDIES: ?As Noted ? Assessment ? IMPRESSION: ?GI bleeding. bright red blood per rectum, clots in bowel movements, nausea and decreased appetite. ? PLAN: ??I have reviewed my findings with Dr. Giang, who will also independently evaluate the patient. Patient currently on clear liquid diet, will plan bowel prep tonight with EGD and colonoscopy to be performed by Dr. Giang tomorrow. ?The planned surgical procedure was discussed extensively with the patient. ?The risks, benefits, anticipated outcomes and possible complications were mentioned. ?My staff has also explained the procedure in understandable terms and the patient was given the option to take printed material concerning the planned procedure. ?The patient had the opportunity to ask questions concerning the planned procedure. ?The patient freely consents to the planned procedure. - Reason for Consult GI bleeding
[2019-07-04 16:33] LABS: Hematocrit 31.1 % (40-54); Hemoglobin 9.9 g/dL (13.0-16.5)
[2019-07-04] MEDS: Finasteride 5 MG Tablet PO (16:44)
[2019-07-04] MEDS: Tamsulosin HCl 0.4 MG Capsule PO (16:44)
[2019-07-04] MEDS: Insulin Lispro 100 UNIT/ML INSULN.PEN SC (16:44)
[2019-07-04 16:46] LABS: Bedside Glucose 230 mg/dL (70-110)
[2019-07-04] MEDS: Electrolyte Solution/Peg's 4000 ML 2000 ML PO (18:04)
[2019-07-04] MEDS: 0.9% NaCl Peripheral Flush Adult/Peds IV (20:35)
[2019-07-04 22:42] LABS: Hematocrit 31.3 % (40-54); Hemoglobin 10.1 g/dL (13.0-16.5)
--- NOTE | 2019-07-04 22:52 | CT_ITS ---
STUDY: CT ABDOMEN AND PELVIS WITHOUT CONTRAST REASON FOR EXAM: Male, 83 years old. Rectal bleeding RADIATION DOSAGE (If Supplied By Facility): CTDIvol = ( 8.46 ) mGy, DLP = ( 427.06 ) mGycm TECHNIQUE: Transaxial images were obtained from the dome of the diaphragm to the symphysis pubis without oral contrast, and without intravenous contrast. Sagittal and coronal images were reconstructed. Individualized dose optimization techniques were used for this CT. COMPARISON: 06/26/2019 FINDINGS: There is a small loculated right pleural effusion. There is a tunneled pleural drainage catheter in place. Bibasilar atelectasis versus scar formation. No pleural effusion on the left. Borderline cardiomegaly. Normal pericardium. There is a hypoattenuated lesion in the peripheral aspect of the right anterior hepatic segment which measures 1.8 cm, increased in size from a prior measurement of 1.5 cm. Gallbladder is surgically absent. No biliary duct dilatation. Normal spleen. Normal pancreas. Normal bilateral adrenal glands. There are hypoattenuated lesions arising off of both kidneys, some of which demonstrate peripheral calcification, all unchanged compared to prior imaging. Normal bilateral ureters. Normal visualized stomach. Normal small intestine. Moderate diverticular disease of the descending and sigmoid colonic segments without localized inflammation. The appendix is visualized and appears normal. Mild to moderate atherosclerotic calcification of the abdominal vasculature. Normal inferior vena cava. Normal retroperitoneum. Normal urinary bladder. Mild prostatomegaly with brachytherapy seeds in place. There is a fat and fluid containing right inguinal hernia. Moderate multilevel degenerative change of the spine is noted. CT/Abdomen/Pel W ORAL Cont Only IMPRESSION: 1. Loculated right pleural effusion with tunneled pleural drainage catheter in place, not significantly changed compared to prior imaging. 2. Simple and complex bilateral renal cysts, unchanged from prior imaging. 3. 1.8 cm hypoattenuated lesion within the peripheral aspect of the right anterior hepatic segment, increased in size compared to prior imaging and concerning for a metastatic lesion 4. Moderate descending and sigmoid colonic diverticulosis with no evidence of acute diverticulitis Electronically Signed: Antonio Puga MD at 2:40 EDT Tel , Service support ,
[2019-07-04 22:56] LABS: International Normalized Ratio 1.7; Prothrombin Time (Protime)PT. 19.5 SECONDS (11.7-14.9)
[2019-07-04 23:06] LABS: Bedside Glucose 96 mg/dL (70-110)
[2019-07-05] VITALS (14 sets, daily range): BP systolic 94–152; BP diastolic 44–62; PULSE 60–75; RESP 16–18; TEMP 36.2–36.8; O2SAT 97–100; BMI 26.7
[2019-07-05 04:39] LABS: Absolute Lymphocyte Count 0.51 X10^3/uL (0.83-4.51); Absolute Neutrophil Count 6.6 X10^3/uL (2.0-7.7); Basophil# 0.04 X10^3/uL; Basophil% 0.5 % (0-1); Eosinophil# 0.19 X10^3/uL; Eosinophils% 2.4 % (0-5); Hematocrit 27.8 % (40-54); Hemoglobin 9.2 g/dL (13.0-16.5); Lymphocyte # 0.51 X10^3/ul (4.0); Lymphocyte % 6.4 % (19-41); Mean Corp Hgb Conc 33.1 g/dL (32-36); Mean Corpuscular Hgb 31.1 pg (27.0-32.0); Mean Corpuscular Volume 93.9 fL (80-94); Mean Platelet Vol. 9.9 fl (6.2-12.0); Monocyte# 0.61 X10^3/uL; Monocyte% 7.6 % (0-10); NRBC Flagged by Analyzer 0 % (0-5); Neutrophil # 6.55 X10^3/uL (2.7-7.7); Neutrophil % 82.1 % (47-70); POSITIVE DIFFERENTIAL YES; Platelet Count 118 K/mm3 (150-450); RBC Distribution Width SD 44.4 fl (35.1-43.9); Red Blood Count 2.96 M/mm3 (4.6-6.2)
[2019-07-05 04:55] LABS: International Normalized Ratio 1.7; Prothrombin Time (Protime)PT. 19.6 SECONDS (11.7-14.9)
[2019-07-05 04:56] LABS: Partial Thromboplast Time 33.7 Seconds (24.1-36.2)
[2019-07-05 05:05] LABS: Anion Gap 7 (5-15); BUN 47 mg/dL (7-18); BUN/Creat Ratio 23.4 RATIO (10-20); Calcium,Total 7.8 mg/dL (8.5-10.1); Chloride 109 mmol/L (98-107); Creatinine, Serum 2.01 mg/dL (0.70-1.30); Differential Indicated SCAN CRITERIA MET; EST Glomerular Filtration Rate 34 mL/min (>60); Est Glom Filt Rate - Afr Amer 41 mL/min (>60); Estimated Creatinine Clearance 24.22 ml/min; Glucose 127 mg/dL (74-106); Potassium 4.9 mmol/L (3.5-5.1); Sodium Level 139 mmol/L (136-145)
[2019-07-05 05:39] LABS: Differential Comment SCANNED
--- NOTE | 2019-07-05 05:55 | EKG12_ITS ---
Test Reason : AM EKG Blood Pressure : / mmHG Vent. Rate : 064 BPM Atrial Rate : 064 BPM P-R Int : 148 ms QRS Dur : 100 ms QT Int : 442 ms P-R-T Axes : 040 -28 047 degrees QTc Int : 455 ms Normal sinus rhythm Leftward axis Confirmed by ROSEMARIE PEREZ, ABBIE ([id number]), photography editor RANDELL TOMLIN ([id number]) on 07/07/2019 9:11:48 AM Referred By: Ramone Dutta Confirmed By:ABBIE HOUSTON MD
[2019-07-05] MEDS: Electrolyte Solution/Peg's 4000 ML 2000 ML PO (05:56)
[2019-07-05 06:06] LABS: Bedside Glucose 126 mg/dL (70-110)
[2019-07-05] MEDS: Amiodarone 200 MG Tablet PO (08:15)
[2019-07-05] MEDS: Galantamine Hydrobromide 4 MG Tablet 8 MG PO ×2 (08:15→22:28)
[2019-07-05] MEDS: busPIRone 5 MG Tablet 10 MG PO ×2 (08:15→22:27)
--- NOTE | 2019-07-05 08:39 | PN_ITS ---
Patient Problems: Active and Suspected Problems (Last Reviewed 07/04/19 @ 07:20 by Ramone Dutta MD) BRBPR (bright red blood per rectum) (Acute) Subjective: Patient was seen and examined. Multiple bloody bowel movements. Going for EGD/colonoscopy today. He denies any new complains. Denies dizziness, SOB Vitals/I&O's: Vital Signs Temp Pulse Resp BP Pulse Ox 97.2 F L 75 16 94/45 L 100 07/05/19 02:45 07/05/19 07:14 07/05/19 02:45 07/05/19 02:45 07/05/19 02:45 Oxygen Delivery Method Room Air Weight: 73 kg Body Mass Index (BMI) 26.7 Finger Stick Blood Glucose 128 Intake and Output for Last 24 Hours 07/03/19 07/04/19 07/05/19 23:59 23:59 23:59 Intake Total 2332 / 5037 3205 / 3205 Output Total 975 / 2525 1900 / 1900 Balance 1357 / 2512 1305 / 1305 General: Alert, Oriented x3, Cooperative, No apparent distress HEENT: Atraumatic, PERRLA, EOMI, Normocephalic Oral: Moist Mucosa Neck: Supple Lungs: Clear to auscultation, Normal air movement Cardiovascular: Regular rate, Regular Rhythm, Normal S1, Normal S2, No murmurs Abdomen: Bowel Sounds Present, Soft, Non Tender, Non-Distended Extremities: No edema Skin: No rashes, No breakdown Musculoskeletal: No Tenderness to Palpation of Joints or Extremities Lymphatic: No Cervical, Supraclavicular, or Inguinal Adenopathy Neurological: Cranial nerves II-XII grossly intact Psych/Mental Status: Normal Affect, Appropriate Microbiology Past 72 Hours 07/03/19 22:51 Stool Stool Occult Blood (NUZHAT) - Final Occult Blood Positive Laboratory Results 07/04/19 04:22: Crossmatch See Detail 07/04/19 09:55: Hgb 10.6 L, Hct 32.2 L 07/04/19 11:23: POC Glucose 145 H 07/04/19 12:00: PT 26.5 H, INR 2.4 07/04/19 16:05: Hgb 9.9 L, Hct 31.1 L 07/04/19 16:40: POC Glucose 230 H 07/04/19 22:25: PT 19.5 H, INR 1.7 07/04/19 22:30: Hgb 10.1 L, Hct 31.3 L 07/04/19 22:59: POC Glucose 96 07/05/19 04:34: PT 19.6 H, INR 1.7, APTT 33.7 07/05/19 04:34: Sodium 139, Potassium 4.9, Chloride 109 H, Carbon Dioxide 23.0, Anion Gap 7, BUN 47 H, Creatinine 2.01 H, Estim Creat Clear Calc 24.22, Est GFR (MDRD) Af Amer 41 L, Est GFR (MDRD) Non-Af 34 L, BUN/Creatinine Ratio 23.4 H, Glucose 127 H, Calcium 7.8 L 07/05/19 04:34: WBC 8.0, RBC 2.96 L, Hgb 9.2 L, Hct 27.8 L, MCV 93.9, MCH 31.1, MCHC 33.1, RDW Std Deviation 44.4 H, RDW Coeff of Juan Carlos 13.0, Plt Count 118 L, MPV 9.9, Immature Gran % (Auto) 1.000 H, Neut % (Auto) 82.1 H, Lymph % (Auto) 6.4 L, [place] % (Auto) 7.6, Eos % (Auto) 2.4, Baso % (Auto) 0.5, Absolute Neuts (auto) 6.6, Absolute Lymphs (auto) 0.51 L, Nucleated RBC % 0, Differential Comment SCANNED 07/05/19 05:54: POC Glucose 126 H Current Medications Amiodarone HCl (Cordarone) 200 mg PO DAILYCM [facility] Last Admin: 07/05/19 08:15 Dose: 200 mg Documented by: Buspirone HCl (Buspar) 10 mg PO BID [facility] Last Admin: 07/05/19 08:15 Dose: 10 mg Documented by: Dextrose (D50w Syringe) 0 gm IV X1 PRN; Protocol PRN Reason: Hypoglycemia Finasteride (Proscar) 5 mg PO DINNER [facility] Last Admin: 07/04/19 16:44 Dose: 5 mg Documented by: Galantamine Hydrobromide (Razadyne) 8 mg PO BID [facility] Last Admin: 07/05/19 08:15 Dose: 8 mg Documented by: Glucagon () 1 mg IM .X1 PRN PRN Reason: Hypoglycemia Pantoprazole Sodium 40 mg/ (Sodium Chloride) 110 mls @ 330 mls/hr IV Q12 DERICK Last Admin: 07/05/19 08:15 Dose: 330 mls/hr Documented by: Insulin Human Lispro (Humalog Kwikpen (Bkc)) 0 unit SC Q6 DERICK; Protocol Last Admin: 07/05/19 05:56 Dose: Not Given Documented by: Ondansetron HCl (Zofran) 4 mg IV Q6H PRN PRN PRN Reason: NAUSEA/VOMITING Last Admin: 07/04/19 20:35 Dose: 4 mg Documented by: Sodium Chloride () 10 - 40 ml IV UD PRN PRN Reason: SALINE FLUSH Last Admin: 07/04/19 20:35 Dose: 10 ml Documented by: Tamsulosin HCl (Flomax) 0.4 mg PO [facility] Last Admin: 07/04/19 16:44 Dose: 0.4 mg Documented by: Medical Necessity - Tobacco Use Smoking Status: Never smoker Assessment/Plan All Active Problems (Last Reviewed 07/04/19 @ 07:20 by Ramone Dutta MD) BRBPR (bright red blood per rectum) (Acute) Recurrent right pleural effusion (Acute 02/15/19) Community acquired bacterial pneumonia (Acute) Atrial fibrillation (Acute) Pleural effusion (Acute) Renal insufficiency (Acute) Pleural effusion (Acute) Chest pain (Resolved) Dehydration (Resolved) Hypomagnesemia (Resolved) 1.Acute GI bleed, likely diverticular, status post EGD/colonoscopy, few polyps removed, on PPI 2.Acute blood loss anemia secondary to GI bleed, continue on p.o. iron 3.CARMEN on CKD stage 3, improving, continue to monitor 4.Paroxysmal A. fib, controlled, off Coumadin, INR 1.7, on amiodarone and carvedilol Will discuss with cardiology for patient to be off anticoagulation in the light of GI bleed 5.History of recurrent pleural effusion secondary to chronic CHF, status post Pleurx catheter, no signs of acute CHF exacerbation Patient had only 2 mils of fluid from the Pleurx catheter. Chest x-ray shows loculated pleural effusion, patient will need to follow-up with pulmonology in the outpatient 6.DVT PPx- SCDs 7.Disposition: DC in am if stable Code Visit Inpatient E&M: 69402 Subs Hosp L2
[2019-07-05 10:04] LABS: Hematocrit 26.4 % (40-54); Hemoglobin 8.7 g/dL (13.0-16.5)
--- NOTE | 2019-07-05 11:35 | EGD_PTH ---
PATIENT: IVAN STANLEY LOC: PCU U#:[id number] AGE/SX: 83/M ROOM: [facility] RE07/04/[address]: Dr. Jayleen Barger MD : 1935 BED: 1 DIS: 07/06/2019 SPEC #: [id number] RECD: 07/05/19 13:13 STATUS: MARLI RERyanne #: [id number] DEBORAH: 07/05/19 11:[address]: Isabella Giang DEPT: SURGICAL PATHOLOGY RECD BY: Mónica Whitten ENTERED: 07/05/19 13:20 SP TYPE: EGD BIOPSY OTHR DR: MD Dr. Ramone Boggs MD Dr. John K Miller, MD Dr. Linda Wang, MD Tissues: POLYP Procedures: Surgery Specimen Level IV Comments: @ Ordering doctor for SUIV edited from to @ cruzito DE LA CRUZ at 07/05/19 1326 @ Submitting doctor edited from to @ cruzito DE LA CRUZ at 07/05/19 1326 HEADER OPERATION: Colonoscopy, EGD ([facility] [place]) PRE-OP DIAGNOSIS: GI bleed, nausea and vomiting TISSUE SUBMITTED: Gastric polyp MICROSCOPIC DIAGNOSIS Gastric polyp, biopsy: Hyperplastic polyp, inflamed. AM:jose 07/06/19 MICROSCOPIC DESCRIPTION Slides are reviewed. GROSS DESCRIPTION Received in fixative is one container labeled with the patient's name and designated gastric polyp. The specimen consists of a saul-pink polyp measuring 1 x 0.7 x 0.6 cm. The polyp is bisected. Also present in the container are a few fragments of saul soft tissue measuring in aggregate 0.5 x 0.1 x 0.1 cm. The entire specimen is submitted in one cassette. / SJ:jose 07/05/19 TC:1 CPT: 11268
--- NOTE | 2019-07-05 12:44 | OP.ENDO_ITS ---
07/05/2019 [address] [place] [address] Re : Upper GI endoscopy procedure for Tyrell Gay Dear Dr. Marie This procedure was performed on Friday, July 05, 2019. My impressions and recommendations are as follows: Impressions : - Normal first portion of the duodenum and second portion of the duodenum. - Multiple gastric polyps. Resected and retrieved. - Small hiatal hernia. Recommendations : - Continue present medications. My findings are described in the full procedure note, which is enclosed. If I can be of further assistance, please feel free to contact me at Doctor phone number(s): , Work: . Sincerely, MD Isabella Christianson MD 07/05/2019 12:43:58 PM This report has been signed electronically.
--- NOTE | 2019-07-05 12:48 | OP.ENDO_ITS ---
07/05/2019 [address] [place] [address] Re : Colonoscopy procedure for Tyrell Gay Dear Dr. Marie This procedure was performed on Friday, July 05, 2019. My impressions and recommendations are as follows: Impressions : - Diverticulosis in the sigmoid colon, in the descending colon and in the transverse colon. Diverticular bleeding - no source location identified. - Non-bleeding internal hemorrhoids. - Medium-sized lipoma in the cecum. - No specimens collected. Recommendations : - [facility]. - No repeat colonoscopy due to age. - Continue present medications. My findings are described in the full procedure note, which is enclosed. If I can be of further assistance, please feel free to contact me at Doctor phone number(s): , Work: . Sincerely, MD Isabella Christianson MD 07/05/2019 12:48:24 PM This report has been signed electronically.
--- NOTE | 2019-07-05 12:49 | PCM.PN.BLA ---
Progress Note EGD and colonoscopy done - findings of hyperplastic gastric fundic polyps - probably benign (sent for pathology), diverticulosis, blood in distal colon - no exact site of bleeding found Consideration of evaluation of anticoagulation medications - patient came in with INR greater than 3
[2019-07-05 13:51] LABS: Bedside Glucose 128 mg/dL (70-110)
[2019-07-05] MEDS: Insulin Lispro 100 UNIT/ML INSULN.PEN SC (16:46)
[2019-07-05] MEDS: Tamsulosin HCl 0.4 MG Capsule PO (16:46)
[2019-07-05] MEDS: Finasteride 5 MG Tablet PO (16:46)
[2019-07-05 17:40] LABS: Bedside Glucose 202 mg/dL (70-110)
[2019-07-05] MEDS: 0.9% NaCl Peripheral Flush Adult/Peds IV (20:02)
--- NOTE | 2019-07-05 21:51 | CPS ---
Pts. home PAP unit setup and placed on pt. Water chamber filled.
[2019-07-05] MEDS: Carvedilol 6.25 MG Tablet PO (22:27)
[2019-07-05 22:36] LABS: Bedside Glucose 146 mg/dL (70-110)
[2019-07-06] MEDS: 0.9% NaCl Peripheral Flush Adult/Peds IV (00:18)
[2019-07-06 03:00] VITALS: PULSE 72
[2019-07-06 04:20] VITALS: BP 119/52; PULSE 67; RESP 18; TEMP 36.8; O2SAT 95
[2019-07-06 05:06] LABS: Absolute Lymphocyte Count 0.52 X10^3/uL (0.83-4.51); Absolute Neutrophil Count 5.7 X10^3/uL (2.0-7.7); Basophil# 0.04 X10^3/uL; Basophil% 0.6 % (0-1); Eosinophil# 0.14 X10^3/uL; Hematocrit 23.7 % (40-54); Hemoglobin 7.8 g/dL (13.0-16.5); Lymphocyte # 0.52 X10^3/ul (4.0); Lymphocyte % 7.4 % (19-41); Mean Corp Hgb Conc 32.9 g/dL (32-36); Mean Corpuscular Hgb 30.8 pg (27.0-32.0); Mean Corpuscular Volume 93.7 fL (80-94); Mean Platelet Vol. 9.7 fl (6.2-12.0); Monocyte# 0.55 X10^3/uL; Monocyte% 7.9 % (0-10); NRBC Flagged by Analyzer 0 % (0-5); Neutrophil # 5.65 X10^3/uL (2.7-7.7); POSITIVE DIFFERENTIAL YES; Platelet Count 114 K/mm3 (150-450); RBC Distribution Width CV 13.2 % (11.6-14.6); RBC Distribution Width SD 45.1 fl (35.1-43.9); Red Blood Count 2.53 M/mm3 (4.6-6.2)
[2019-07-06 05:07] LABS: Differential Indicated SCAN CRITERIA MET
[2019-07-06 05:20] LABS: Anion Gap 7 (5-15); BUN 44 mg/dL (7-18); BUN/Creat Ratio 19.6 RATIO (10-20); Calcium,Total 7.9 mg/dL (8.5-10.1); Chloride 114 mmol/L (98-107); Creatinine, Serum 2.25 mg/dL (0.70-1.30); EST Glomerular Filtration Rate 30 mL/min (>60); Est Glom Filt Rate - Afr Amer 36 mL/min (>60); Estimated Creatinine Clearance 21.64 ml/min; Glucose 142 mg/dL (74-106); Potassium 4.9 mmol/L (3.5-5.1); Sodium Level 143 mmol/L (136-145)
[2019-07-06 05:44] LABS: Differential Comment SCANNED
[2019-07-06 06:55] LABS: Bedside Glucose 149 mg/dL (70-110)
[2019-07-06 07:10] VITALS: PULSE 59
[2019-07-06] MEDS: busPIRone 5 MG Tablet 10 MG PO (10:12)
[2019-07-06] MEDS: Galantamine Hydrobromide 4 MG Tablet 8 MG PO (10:12)
[2019-07-06] MEDS: Carvedilol 6.25 MG Tablet PO (10:12)
[2019-07-06] MEDS: Amiodarone 200 MG Tablet PO (10:12)
[2019-07-06 10:20] VITALS: BP 102/45; PULSE 60; RESP 16; TEMP 37; O2SAT 95
[2019-07-06 10:43] LABS: Hematocrit 24.6 % (40-54); Hemoglobin 8.1 g/dL (13.0-16.5)
--- NOTE | 2019-07-06 10:59 | CASEMGMT ---
Therapy is recommending OP therapy for pt at discharge. Pt/ do not feel the need for therapy at this time but script for [facility] OP PT/OT provided to pt/ at time of discharge per Dr. Barger request at this time. Pt/ voice no further questions/concerns/needs at this time. Princess SORIA CM
--- NOTE | 2019-07-06 11:07 | DCINST_ITS ---
- Discharge Diagnoses Current Active Problems: Current Active and Chronic Problems (Last Reviewed 07/04/19 @ 07:20 by Ramone Dutta MD) BRBPR (bright red blood per rectum) (Acute) Reason(s) for Visit for Discharge Instructions: Rectal bleeding You will use the following diet at home:: Cardiac Your food should be the consistency of: Regular Your liquids should be the consistency of: Regular/Thin Discharge Activity: Return to Normal Activity Additional Instructions: Take note of changes in your medications. Continue to take all your medications as prescribed. Follow-up with your primary care doctor within 2 weeks. Follow-up with Dr. Santizo as scheduled. 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 Allergies/Adverse Reactions: Allergies cimetidine HCl [From Tagamet] Allergy (Verified 07/03/19 21:59) Rash ciprofloxacin [From Cipro] Allergy (Verified 07/03/19 21:59) Rash amoxicillin trihydrate [From Augmentin] Adverse Reaction (Verified 07/03/19 2 1:59) Abd cramps/diarrhea cefdinir [From Omnicef] Adverse Reaction (Verified 07/03/19 21:59) Diarrhea indomethacin sodium [From Indocin] Adverse Reaction (Verified 07/03/19 21:59) Nausea memantine HCl [From Namenda] Adverse Reaction (Verified 07/03/19 21:59) dizziness potassium clavulanate [From Augmentin] Adverse Reaction (Verified 07/03/19 21:59) Abd cramps/diarrhea sitagliptin phosphate [From Januvia] Adverse Reaction (Verified 07/03/19 21:59) Nausea Medications to take at Discharge Cholecalciferol (Vitamin D3) [Vitamin D3] 1,000 unit PO DAILY 12/25/13 Cyanocobalamin [Vitamin B12] 1,000 mcg PO DAILY@0800 11/17/14 Loratadine 10 mg PO DINNER PRN 03/15/17 magnesium oxide 400 mg (241.3 mg magnesium) tablet 400 mg PO DAILY 12/30/17 Ascorbic Acid [Vitamin C] 1,000 mg PO LUNCH 12/20/18 Galantamine HBr 16 mg PO DAILY 12/20/18 Tamsulosin HCl [Flomax] 0.4 mg PO DINNER 12/20/18 Calcium Carbonate [Calcium] 600 mg PO DAILY 01/26/19 carvedilol 6.25 mg tablet 6.25 mg PO BID #180 tab 03/03/19 Amiodarone HCl 200 mg PO DAILY 03/10/19 Finasteride [Proscar] 5 mg PO DINNER 04/17/19 albuterol sulfate 2.5 mg/3 mL (0.083 %) solution for nebulization 2.5 mg I NHALATION Q4H PRN #180 ml 06/21/19 Buspirone HCl 10 mg PO BID 06/24/19 Nitroglycerin 0.4 mg SL X1 PRN 06/24/19 Sucralfate [Carafate] 1 gm PO TID 07/03/19 Ferrous Sulfate 325 mg PO BID #60 tab 07/06/19 Pantoprazole Sodium [Protonix] 40 mg PO BID #60 tab 07/06/19 The following prescriptions were given: Pantoprazole Sodium [Protonix] 40 mg PO BID #60 tab Transmission Status: Pending to [facility] #30 Primary Care Physician: Pedro Marie MD [Primary Care Provider] - Please follow up with your Primary Care Physician in: within 1-2 weeks for repeat blood work Test Results: Test results from this visit will be discussed in further detail at your follow- up appointment, if applicable. Please Follow Up With: Ozzie Porter MD When: within 2 weeks Please Follow Up With: Tyrell Santizo MD When: as scheduled. Proposed Discharge Date: 07/06/19
--- NOTE | 2019-07-06 11:11 | DS.PCM_ITS ---
Discharge Date and Diagnosis Date of Admission: 07/04/19 Date of Discharge: 07/06/19 - Primary Discharge Diagnosis Active and Suspected Problems (Last Reviewed 07/04/19 @ 07:20 by Ramone Dutta MD) BRBPR (bright red blood per rectum) (Acute) - Secondary Discharge Diagnosis Chronic Problems (Last Reviewed 07/04/19 @ 07:20 by Ramone Dutta MD) Placement of right tunnelled pleurex catheter (Chronic 02/21/19) for recurrent right pleural effusion per Dr. Tyrell Santizo on 02/21/2019 Valvular heart disease (Chronic) (HFpEF) heart failure with preserved ejection fraction (Chronic) Nonrheumatic mitral (valve) insufficiency (Chronic) Non-rheumatic tricuspid valve insufficiency (Chronic) Non-rheumatic aortic stenosis (Chronic) History of left heart catheterization (Chronic ~01/2014) 05/02/[address] Robertson [facility]; 01/29/[address] Porter at [facility]: coronaries angiographically normal, pulmonary htn by RV eval, EF at that time was 45-50% Chronic diastolic (congestive) heart failure (Chronic) History of pleural effusion (Chronic) 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 (Chronic) [facility] current use of 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) Hypertension (Chronic) Chronic renal failure, stage 3 (moderate) (Chronic) History of anxiety disorder (Chronic) Generalized osteoarthritis (Chronic) History of gout (Chronic) Mild dementia (Chronic) Rheumatoid arthritis (Chronic) Diabetes mellitus, type II (Chronic) Generalized weakness (Chronic) History of prostate cancer (Chronic) Status post radiotherapy Anemia of chronic disease (Chronic) due to CRF and RA PAF (paroxysmal atrial fibrillation) (Chronic) Hospital Course and Treatment Imaging Results: Clinical Impression(s) from Imaging Studies Chest X-Ray 07/03/19 22:55 IMPRESSION: Right lower lung consolidation and effusion. Electronically Signed: Ata Goodman MD at 23:29 EDT , Service support , Abdomen CT 07/04/19 22:52 IMPRESSION: 1. Loculated right pleural effusion with tunneled pleural drainage catheter in place, not significantly changed compared to prior imaging. 2. Simple and complex bilateral renal cysts, unchanged from prior imaging. 3. 1.8 cm hypoattenuated lesion within the peripheral aspect of the right anterior hepatic segment, increased in size compared to prior imaging and concerning for a metastatic lesion 4. Moderate descending and sigmoid colonic diverticulosis with no evidence of acute diverticulitis Electronically Signed: Antonio Puga MD at 2:40 EDT Tel , Service support , General surgery - Dr. Giang Operations: None, - - tunnel Pleurx catheter placement Procedures: None Summary of Care Provided: The patient is a 83 year old M with past medical history of paroxysmal atrial fibrillation, on coumadin who had come in with bright red bleeding per rectum. CT of the abdomen and pelvis was suggestive of diverticulosis. Patient was admitted to telemetry floor, H&H was monitored. He underwent EGD and colonoscopy that was unremarkable except for a few polyps that were taken. Patient was taken off Coumadin. His initial INR was 3.2. It was recommended for patient not to be on anticoagulation because of the risks of bleeding outweighs the risk of stroke from atrial fibrillation. He received 1 bag of IV Venofer. He was continued on p.o. iron. Patient has a chronic Pleurx catheter recurrent pleural effusion. Attempt at draining showed only 2 mils of fluid. Initial chest x-ray shows a loculated pleural effusion. Patient will need to follow-up with pulmonology in the outpatient. Patient's admitting CT scan of the abdomen and pelvis was suggestive of a right anterior hepatic segment lesion. No evidence of lesion on colonoscopy. He will need to follow-up with her primary care doctor for further evaluation and possible referral to oncology. Patient will need to see his PCP within a week for repeat blood work. This was relayed to his who voiced understanding. Subjective: On the day of discharge, patient was seen and examined, denied any new complaints. Hemoglobin dropped to 1.8, repeat was 8.1. He received IV iron x1 yesterday. He is on p.o. iron. No more hematochezia or melena. Objective: Physical exam: General: Alert, Oriented x3, Cooperative, No apparent distress HEENT: Atraumatic, PERRLA, EOMI, Normocephalic Oral: Moist Mucosa Neck: Supple Lungs: Clear to auscultation, Normal air movement Cardiovascular: Regular rate, Regular Rhythm, Normal S1, Normal S2, No murmurs Abdomen: Bowel Sounds Present, Soft, Non Tender, Non-Distended Extremities: No edema Skin: No rashes, No breakdown Musculoskeletal: No Tenderness to Palpation of Joints or Extremities Lymphatic: No Cervical, Supraclavicular, or Inguinal Adenopathy Neurological: Cranial nerves II-XII grossly intact Psych/Mental Status: Normal Affect, Appropriate - Physical Exam Vital Signs Temp Pulse Resp BP Pulse Ox 98.6 F 60 16 102/45 L 95 07/06/19 10:20 07/06/19 10:20 07/06/19 10:20 07/06/19 10:20 07/06/19 10:20 Oxygen Delivery Method Room Air Weight: 73 kg Body Mass Index (BMI) 26.7 Finger Stick Blood Glucose 128 Intake and Output for Last 24 Hours 07/04/19 07/05/19 07/06/19 23:59 23:59 23:59 Intake Total 2332 / 5037 4970 / 4970 Output Total 975 / 2525 2675 / 2675 250 / 250 Balance 1357 / 2512 2295 / 2295 -250 / -250 Microbiology Past 72 Hours 07/03/19 22:51 Stool Occult Blood (NUZHAT) - Final Stool Occult Blood Positive Laboratory Tests Past 24 Hrs 07/06/19 07/06/19 07/06/19 04:58 04:58 10:30 WBC 7.0 RBC 2.53 L Hgb 7.8 L 8.1 L Hct 23.7 L 24.6 L MCV 93.7 MCH 30.8 MCHC 32.9 RDW Std Deviation 45.1 H RDW Coeff of [place] 13.2 Plt Count 114 L MPV 9.7 Immature Gran % (Auto) 1.100 H Neut % (Auto) 81.0 H Lymph % (Auto) 7.4 L [place] % (Auto) 7.9 Eos % (Auto) 2.0 Baso % (Auto) 0.6 Absolute Neuts (auto) 5.7 Absolute Lymphs (auto) 0.52 L Nucleated RBC % 0 Differential Comment SCANNED Sodium 143 Potassium 4.9 Chloride 114 H Carbon Dioxide 22.0 Anion Gap 7 BUN 44 H Creatinine 2.25 H Estim Creat Clear Calc 21.64 Est GFR (MDRD) Af Amer 36 L Est GFR (MDRD) Non-Af 30 L BUN/Creatinine Ratio 19.6 Glucose 142 H Calcium 7.9 L POC Glucose 07/06/19 07/05/19 07/05/19 06:47 22:21 16:44 POC Glucose 149 H 146 H 202 H 07/05/19 13:45 POC Glucose 128 H Discharge Diet: No Restrictions Discharge Activity: Return to Normal Activity Home Medications: Medications to take at Discharge Cholecalciferol (Vitamin D3) [Vitamin D3] 1,000 unit PO DAILY 12/25/13 Cyanocobalamin [Vitamin B12] 1,000 mcg PO DAILY@0800 11/17/14 Loratadine 10 mg PO DINNER PRN 03/15/17 magnesium oxide 400 mg (241.3 mg magnesium) tablet 400 mg PO DAILY 12/30/17 Ascorbic Acid [Vitamin C] 1,000 mg PO LUNCH 12/20/18 Galantamine HBr 16 mg PO DAILY 12/20/18 Tamsulosin HCl [Flomax] 0.4 mg PO DINNER 12/20/18 Calcium Carbonate [Calcium] 600 mg PO DAILY 01/26/19 carvedilol 6.25 mg tablet 6.25 mg PO BID #180 tab 03/03/19 Amiodarone HCl 200 mg PO DAILY 03/10/19 Finasteride [Proscar] 5 mg PO DINNER 04/17/19 albuterol sulfate 2.5 mg/3 mL (0.083 %) solution for nebulization 2.5 mg INHALATION Q4H PRN #180 ml 06/21/19 Buspirone HCl 10 mg PO BID 06/24/19 Nitroglycerin 0.4 mg SL X1 PRN 06/24/19 Sucralfate [Carafate] 1 gm PO TID 07/03/19 Ferrous Sulfate 325 mg PO BID #60 tab 07/06/19 Furosemide [Lasix] 20 mg PO BIDLX #60 tab 07/06/19 Pantoprazole Sodium [Protonix] 40 mg PO BID #60 tab 07/06/19 Following Prescrptions Were Given to Patient: Furosemide [Lasix] 20 mg PO BIDLX #60 tab Transmission Status: Received by [facility] #30 Pantoprazole Sodium [Protonix] 40 mg PO BID #60 tab Transmission Status: Received by [facility] #30 Primary Care Physician: Pedro Marie MD [Primary Care Provider] - Please follow up with your Primary Care Physician in: within 1-2 weeks for repeat blood work Please Follow Up With: Ozzie Porter MD When: within 2 weeks Please Follow Up With: Tyrell Santizo MD When: as scheduled. Disposition: Home Minutes spent on discharge:: 40 Patient Condition:: Stable Medical Necessity - Tobacco Use Smoking Status: Never smoker Tobacco Use: Non-smoker Meaningful Use Info Meaningful Use Diagnoses (Choose all that apply): None applicable Code Visit Inpatient E&M: 77176 Disch Hosp
--- NOTE | 2019-07-06 11:13 | PCM.PN.SRG ---
Patient Problems: Active and Suspected Problems (Last Reviewed 07/04/19 @ 07:20 by Ramone Dutta MD) BRBPR (bright red blood per rectum) (Acute) Subjective: no bloody bowel movements noted, denies abdominal pain - Physical Exam General: Alert, Oriented x3 Oral: Moist Mucosa Neck: Supple Abdomen: - - soft and benign Vital Signs Temp Pulse Resp BP Pulse Ox 98.6 F 60 16 102/45 L 95 07/06/19 10:20 07/06/19 10:20 07/06/19 10:20 07/06/19 10:20 07/06/19 10:20 Oxygen Delivery Method Room Air Weight: 73 kg Body Mass Index (BMI) 26.7 Finger Stick Blood Glucose 128 Intake and Output for Last 24 Hours 07/04/19 07/05/19 07/06/19 23:59 23:59 23:59 Intake Total 2332 / 5037 4970 / 4970 Output Total 975 / 2525 2675 / 2675 250 / 250 Balance 1357 / 2512 2295 / 2295 -250 / -250 Microbiology Past 72 Hours 07/03/19 22:51 Stool Occult Blood (NUZHAT) - Final Stool Occult Blood Positive Laboratory Tests Past 24 Hrs 07/06/19 07/06/19 07/06/19 04:58 04:58 10:30 WBC 7.0 RBC 2.53 L Hgb 7.8 L 8.1 L Hct 23.7 L 24.6 L MCV 93.7 MCH 30.8 MCHC 32.9 RDW Std Deviation 45.1 H RDW Coeff of Juan Carlos 13.2 Plt Count 114 L MPV 9.7 Immature Gran % (Auto) 1.100 H Neut % (Auto) 81.0 H Lymph % (Auto) 7.4 L [place] % (Auto) 7.9 Eos % (Auto) 2.0 Baso % (Auto) 0.6 Absolute Neuts (auto) 5.7 Absolute Lymphs (auto) 0.52 L Nucleated RBC % 0 Differential Comment SCANNED Sodium 143 Potassium 4.9 Chloride 114 H Carbon Dioxide 22.0 Anion Gap 7 BUN 44 H Creatinine 2.25 H Estim Creat Clear Calc 21.64 Est GFR (MDRD) Af Amer 36 L Est GFR (MDRD) Non-Af 30 L BUN/Creatinine Ratio 19.6 Glucose 142 H Calcium 7.9 L POC Glucose 07/06/19 07/05/19 07/05/19 06:47 22:21 16:44 POC Glucose 149 H 146 H 202 H 07/05/19 13:45 POC Glucose 128 H Medical Necessity - Tobacco Use Smoking Status: Never smoker Assessment/Plan All Active Problems (Last Reviewed 07/04/19 @ 07:20 by Ramone Dutta MD) BRBPR (bright red blood per rectum) (Acute) Recurrent right pleural effusion (Acute 02/15/19) Community acquired bacterial pneumonia (Acute) Atrial fibrillation (Acute) Pleural effusion (Acute) Renal insufficiency (Acute) Pleural effusion (Acute) Chest pain (Resolved) Dehydration (Resolved) Hypomagnesemia (Resolved) Impression: diverticular bleed Discussion/Plan: no source identified by colonoscopy yesterday suspect diverticular bleed - stopping spontaneously and with discontinuation of anticoagulation Can start regular diet if clinically no evidence of bleeding - bloody bowel movements - etc. - then can discharge to home Patient with lesion on liver - can follow up with his PCP (no evidence of colon cancer by endoscopy)
--- NOTE | 2019-07-07 16:23 | CASEMGMT ---
RN CM Discharge Follow-up Phone Call: ELIZABETH: Conchis Strata: 4 Call Date: 07/07/19 Discharge Date: 07/06/19 Time of Call: 1623 Duration: 0 ? Admitting Diagnosis: BBPR Discharge follow-up call attempted by this RN CM. Voicemail message received and message requesting a return call left.
== END 2019-07-06 12:11 | disposition home or self-care (01) | DRG 378 ==
LOC: ED 22:37 → PCU 07-04 03:29
PROVIDERS: Surgery; Admitting Provider Hospitalist; Emergency Provider Emergency Medicine; Family Provider Family Medicine; PCP Family Medicine; Referring Provider Hospitalist; Visit Provider Internal Medicine
PROC: 0DJD8ZZ Inspection of Lower Intestinal Tract, Via Natural or Artificial Opening Endoscopic (ICD-10-PCS; CPT 45378; principal; 2019-07-05 11:30)
DX: K57.31 Diverticulosis of large intestine without perforation or abscess with bleeding (principal); I13.0 Hypertensive heart and chronic kidney disease with heart failure and stage 1 through stage 4 chronic kidney disease, or unspecified chronic kidney disease; N17.9 Acute kidney failure, unspecified; D62 Acute posthemorrhagic anemia; I50.32 Chronic diastolic (congestive) heart failure; J91.8 Pleural effusion in other conditions classified elsewhere; N18.3 Chronic kidney disease, stage 3 (moderate); I48.0 Paroxysmal atrial fibrillation; K31.7 Polyp of stomach and duodenum; K64.8 Other hemorrhoids; K44.9 Diaphragmatic hernia without obstruction or gangrene; I35.0 Nonrheumatic aortic (valve) stenosis; I36.1 Nonrheumatic tricuspid (valve) insufficiency; I34.0 Nonrheumatic mitral (valve) insufficiency; Z79.01 Long term (current) use of anticoagulants
CPT/HCPCS: 36415; 71045; 74176; 80048; 80053; 81001; 82274; 82962; 83690; 85014; 85018; 85025; 85610; 85730; 86850; 86900; 86920; 88305; 93005; 97162; 97166; 97530; 97535; 99251; 99285; J1756; J7030; J7040; A4216; G0463; J2405

== ENCOUNTER 2019-07-09 02:56 | Emergency (ER) | payer MEDICARE, SELFPAY ==
[2019-07-05 05:08] VITALS: BMI 26.7
[2019-07-09 02:57] VITALS: BP 189/89; PULSE 65; RESP 18; TEMP 36.8; O2SAT 100; BMI 28.8
[2019-07-09 03:01] VITALS: BP 180/76; PULSE 65; RESP 16; TEMP 36.8; O2SAT 100
[2019-07-09] MEDS: Ondansetron 4 MG/2 ML Vial IV (03:18)
[2019-07-09] MEDS: 0.9% Normal Saline 1,000 ML 125 ML IV (03:18)
--- NOTE | 2019-07-09 03:20 | ED.DCSUM_ITS ---
- ER Visit Summary Date of Service: 07/09/19 Chief Complaint: Nausea History of Present Illness: The patient is a 83 M who presents with nausea. It started earlier today. He feels nauseous but has not vomited. He denies any abdominal pain with this. He was just in the hospital 3 days ago for rectal bleeding. He had a colonoscopy and it was suspect that it was diverticular. He was on Coumadin for A. fib but was taken off of this due to his age and his risk of falling. He denies any urinary symptoms. He took Zofran which was old and he thinks it did not help. He has had no subsequent bright red blood per rectum at home. Physical Examination: Vital signs reviewed. HEENT exam unremarkable. Heart is regular rate and rhythm without murmurs. Lungs are clear to auscultation. Abdomen is soft and nontender. Extremities reveal no edema. Skin exam normal. Neurologic exam normal. Test Results: White blood cell count 8, hemoglobin 8.4 which is baseline. Potassium 5.4, BUN 42, creatinine 2.13 which is around baseline as well. INR 1.2 Emergency Department Course and Treatment: The patient's hemoglobin is baseline. His potassium is slightly elevated which will be remedied with the normal saline. His creatinine is baseline. No dehydration. He has had no vomiting here. He feels better with Zofran. I will give him a new prescription of Zofran ODT. He would like to go home. I feel he can be discharged to follow-up this week with his PCP Treatment Plan: [] Disposition: Discharge Impression: Nausea This note was generated with [employer] dictation software. It may contain incorrect words, spelling, and punctuation that were not noted in review of the chart prior to signing ED Disposition - Plan for ED Patient: Referrals: Pedro Marie MD [Primary Care Provider] -
[2019-07-09 03:39] LABS: Absolute Lymphocyte Count 0.74 X10^3/uL (0.83-4.51); Absolute Neutrophil Count 6.3 X10^3/uL (2.0-7.7); Basophil# 0.05 X10^3/uL; Basophil% 0.6 % (0-1); Eosinophils% 2.5 % (0-5); Hematocrit 25.6 % (40-54); Hemoglobin 8.4 g/dL (13.0-16.5); Lymphocyte # 0.74 X10^3/ul (4.0); Lymphocyte % 9.2 % (19-41); Mean Corp Hgb Conc 32.8 g/dL (32-36); Mean Corpuscular Hgb 30.9 pg (27.0-32.0); Mean Corpuscular Volume 94.1 fL (80-94); Mean Platelet Vol. 9.8 fl (6.2-12.0); Monocyte% 7.5 % (0-10); NRBC Flagged by Analyzer 0 % (0-5); Neutrophil # 6.27 X10^3/uL (2.7-7.7); Neutrophil % 78.3 % (47-70); Platelet Count 148 K/mm3 (150-450); RBC Distribution Width CV 13.7 % (11.6-14.6); RBC Distribution Width SD 46.4 fl (35.1-43.9); Red Blood Count 2.72 M/mm3 (4.6-6.2)
[2019-07-09 03:46] LABS: Bacteria 0 SEEN /hpf (None Seen); Mucous, Urine 0 SEEN /hpf (<or=2+); Red Blood Cells-Urine 0 SEEN /hpf (0-5); Squamous Epithelial Cells - UA 0 SEEN /hpf (0-5)
[2019-07-09 03:49] LABS: ALB/GLOB Ratio 0.8 RATIO (0.9-2.4); AST(SGOT) 24 U/L (15-37); Alanine Aminotransfer ALT/SGPT 25 U/L (16-61); Albumin, Serum 2.9 g/dL (3.2-5.0); Alkaline Phosphatase 103 U/L (45-117); Anion Gap 7 (5-15); BUN 42 mg/dL (7-18); BUN/Creat Ratio 19.7 RATIO (10-20); Calcium,Total 8.5 mg/dL (8.5-10.1); Chloride 107 mmol/L (98-107); Creatinine, Serum 2.13 mg/dL (0.70-1.30); EST Glomerular Filtration Rate 32 mL/min (>60); Est Glom Filt Rate - Afr Amer 38 mL/min (>60); Estimated Creatinine Clearance 22.86 ml/min; Globulin 3.8 g/dL (2.2-4.2); Glucose 132 mg/dL (74-106); Lipase 322 U/L (73-393); Potassium 5.4 mmol/L (3.5-5.1); Protein, Total 6.7 g/dL (6.4-8.2); Sodium Level 139 mmol/L (136-145)
[2019-07-09 03:51] LABS: Color, Urine Yellow (Yellow); Glucose, Dipstick Normal (Normal); Ketone-Dipstick Negative (Negative); Leukocyte Esterase-Dipstick 100 /ul (Negative); Nitrite-Dipstick Negative (Negative); Occult Blood-Urine Negative /ul (Negative); Protein-Dipstick 15 mg/dl (Negative); Urine Bilirubin Dipstick Negative (Negative); Urine Clarity Sl. Cloudy (Clear); Urine Urobilinogen Normal (Normal)
[2019-07-09 04:00] LABS: International Normalized Ratio 1.2; Prothrombin Time (Protime)PT. 15.3 SECONDS (11.7-14.9)
--- NOTE | 2019-07-09 04:16 | ED.DEP ---
ED Disposition - Plan for ED Patient: Disposition: Home or Assisted Living Instructions: VOMITING (6y-Adult) Prescriptions: Ondansetron [Zofran Odt] 4 mg PO Q8H PRN PRN #10 tab PRN Reason: Nausea Prescription Printed Referrals: Pedro Marie MD [Primary Care Provider] -
[2019-07-09 04:19] LABS: White Blood Cells 5-10 SEEN /hpf (0-5)
[2019-07-09 04:26] VITALS: BP 140/63; PULSE 58; O2SAT 95
== END 2019-07-09 04:30 | disposition home or self-care (01) ==
PROVIDERS: Emergency Provider Emergency Medicine; Family Provider Family Medicine; PCP Family Medicine
DX: R11.0 Nausea (principal); F03.90 Unspecified dementia, unspecified severity, without behavioral disturbance, psychotic disturbance, mood disturbance, and anxiety; E11.9 Type 2 diabetes mellitus without complications; I10 Essential (primary) hypertension; I48.91 Unspecified atrial fibrillation; J90 Pleural effusion, not elsewhere classified; Z79.82 Long term (current) use of aspirin; Z79.899 Other long term (current) drug therapy
CPT/HCPCS: 80053; 81001; 83690; 85025; 85610; 96361; 96374; 99284; J7030; A4216; J2405

== ENCOUNTER → 2019-08-03 | Outpatient (CLI) | payer MEDICARE, SELFPAY ==
[2019-07-20 13:38] VITALS: BMI 28.1
[2019-08-03 14:22] LABS: Absolute Lymphocyte Count 0.52 X10^3/uL (0.83-4.51); Absolute Neutrophil Count 4.5 X10^3/uL (2.0-7.7); Basophil# 0.06 X10^3/uL; Eosinophil# 0.12 X10^3/uL; Eosinophils% 2.1 % (0-5); Hematocrit 32.7 % (40-54); Hemoglobin 10.1 g/dL (13.0-16.5); Lymphocyte # 0.52 X10^3/ul (4.0); Mean Corp Hgb Conc 30.9 g/dL (32-36); Mean Corpuscular Hgb 29.6 pg (27.0-32.0); Mean Corpuscular Volume 95.9 fL (80-94); Mean Platelet Vol. 10.2 fl (6.2-12.0); Monocyte# 0.51 X10^3/uL; Monocyte% 8.8 % (0-10); NRBC Flagged by Analyzer 0 % (0-5); Neutrophil # 4.54 X10^3/uL (2.7-7.7); Neutrophil % 78.4 % (47-70); POSITIVE DIFFERENTIAL YES; Platelet Count 139 K/mm3 (150-450); RBC Distribution Width SD 49.6 fl (35.1-43.9); Red Blood Count 3.41 M/mm3 (4.6-6.2); White Blood Count 5.8 K/mm3 (4.4-11.0)
[2019-08-03 14:24] LABS: Differential Indicated SCAN CRITERIA MET
[2019-08-03 14:46] LABS: Hemoglobin A1c 6.2 % (4.2-6.3)
[2019-08-03 14:49] LABS: AST(SGOT) 22 U/L (15-37); Alanine Aminotransfer ALT/SGPT 25 U/L (16-61); Albumin, Serum 3.2 g/dL (3.2-5.0); Alkaline Phosphatase 91 U/L (45-117); Anion Gap 7 (5-15); BUN 32 mg/dL (7-18); BUN/Creat Ratio 17.2 RATIO (10-20); Bilirubin, Direct 0.11 mg/dL (0.00-0.30); Calcium,Total 8.3 mg/dL (8.5-10.1); Chloride 107 mmol/L (98-107); Cholesterol 134 mg/dL (200); Creatinine, Serum 1.86 mg/dL (0.70-1.30); EST Glomerular Filtration Rate 37 mL/min (>60); Est Glom Filt Rate - Afr Amer 45 mL/min (>60); Globulin 3.7 g/dL (2.2-4.2); Glucose 133 mg/dL (74-106); High Density Lipoprotein 35 mg/dL; Potassium 4.5 mmol/L (3.5-5.1); Protein, Total 6.9 g/dL (6.4-8.2); Sodium Level 143 mmol/L (136-145); Triglycerides 150 mg/dL; Very Low Density Lipoprotein 30 mg/dL (5-40)
== END | disposition home or self-care (01) ==
LOC: MFPLAB 11:41
PROVIDERS: Family Provider Family Medicine; PCP Family Medicine; Referring Provider Family Medicine; Visit Provider Family Medicine
DX: E11.9 Type 2 diabetes mellitus without complications (principal)
CPT/HCPCS: 36415; 80048; 80061; 80076; 83036; 85025

== ENCOUNTER 2019-08-21 17:09 | Emergency (ER) | payer MEDICARE, SELFPAY ==
[2019-07-20 13:38] VITALS: BMI 28.1
[2019-08-21] VITALS (7 sets, daily range): BP systolic 155–191; BP diastolic 68–83; PULSE 59–69; RESP 12–17; TEMP 35.8–37.3; O2SAT 93–100; BMI 28.0
--- NOTE | 2019-08-21 17:11 | EKG12_ITS ---
Test Reason : CP Blood Pressure : / mmHG Vent. Rate : 057 BPM Atrial Rate : 057 BPM P-R Int : 148 ms QRS Dur : 110 ms QT Int : 490 ms P-R-T Axes : 032 -35 057 degrees QTc Int : 476 ms Sinus bradycardia Left axis deviation Abnormal ECG Confirmed by ROSEMARIE PEREZ, ABBIE ([id number]), scientific publications editor KARMA SAMPSON ([id number]) on 08/23/2019 10:49:48 AM Referred By: CAPO/SONNY Confirmed By:ABBIE HOUSTON MD
--- NOTE | 2019-08-21 17:15 | RAD_ITS ---
STUDY: X-RAY CHEST REASON FOR EXAM: Male, 83 years old. Chest pain TECHNIQUE: Frontal view of the chest was performed COMPARISON: 03 July 2019 FINDINGS: There is dense opacity obscuring the right lower lung, likely combination of atelectasis and effusion. Underlying parenchyma cannot be reliably assessed for presence of separate disease such as pneumonia. Remainder the lungs are clear. There is moderate cardiomegaly. There is no pulmonary edema. Left pleural cavity is clear. There is a right total shoulder arthroplasty. RAD/Chest 1 View (Portable) IMPRESSION: 1. Moderate right pleural effusion, right lower lobe atelectasis. 2. Obscure evaluation of the right lower lung, refer to upright PA and lateral imaging follow-up for further evaluation. 3. Moderate cardiomegaly, no acute heart failure. Electronically Signed: Yenny Johnson, at 17:39 EDT Tel , Service support ,
[2019-08-21 17:53] LABS: Absolute Lymphocyte Count 0.57 X10^3/uL (0.83-4.51); Absolute Neutrophil Count 10.2 X10^3/uL (2.0-7.7); Basophil# 0.06 X10^3/uL; Basophil% 0.5 % (0-1); Eosinophil# 0.16 X10^3/uL; Eosinophils% 1.3 % (0-5); Hematocrit 36.9 % (40-54); Hemoglobin 11.6 g/dL (13.0-16.5); Lymphocyte # 0.57 X10^3/ul (4.0); Lymphocyte % 4.8 % (19-41); Mean Corp Hgb Conc 31.4 g/dL (32-36); Mean Corpuscular Hgb 28.9 pg (27.0-32.0); Mean Platelet Vol. 9.6 fl (6.2-12.0); Monocyte# 0.81 X10^3/uL; Monocyte% 6.8 % (0-10); NRBC Flagged by Analyzer 0 % (0-5); POSITIVE DIFFERENTIAL YES; Platelet Count 143 K/mm3 (150-450); RBC Distribution Width CV 13.4 % (11.6-14.6); RBC Distribution Width SD 46.1 fl (35.1-43.9); Red Blood Count 4.01 M/mm3 (4.6-6.2); White Blood Count 11.9 K/mm3 (4.4-11.0)
[2019-08-21 18:04] LABS: Differential Indicated SCAN CRITERIA MET
[2019-08-21 18:13] LABS: Anion Gap 6 (5-15); BUN 36 mg/dL (7-18); BUN/Creat Ratio 20.3 RATIO (10-20); Calcium,Total 8.9 mg/dL (8.5-10.1); Chloride 103 mmol/L (98-107); Creatinine, Serum 1.77 mg/dL (0.70-1.30); EST Glomerular Filtration Rate 39 mL/min (>60); Est Glom Filt Rate - Afr Amer 47 mL/min (>60); Estimated Creatinine Clearance 27.51 ml/min; Glucose 138 mg/dL (74-106); Potassium 4.2 mmol/L (3.5-5.1); Sodium Level 138 mmol/L (136-145)
[2019-08-21 18:21] LABS: Platelet Estimate SLT DEC (ADEQ)
[2019-08-21 18:22] LABS: Anisocytosis RARE; Macrocytosis RARE
[2019-08-21 18:33] LABS: AST(SGOT) 19 U/L (15-37); Alanine Aminotransfer ALT/SGPT 21 U/L (16-61); Albumin, Serum 3.8 g/dL (3.2-5.0); Alkaline Phosphatase 103 U/L (45-117); Bilirubin, Direct 0.21 mg/dL (0.00-0.30); Globulin 4.4 g/dL (2.2-4.2); Protein, Total 8.2 g/dL (6.4-8.2)
--- NOTE | 2019-08-21 18:33 | ED.RN ---
PT UNABLE TO PROVIDE URINE SAMPLE AT THIS TIME. MD AWARE. NO NEW ORDERS GIVEN.
[2019-08-21 18:37] LABS: Lipase 141 U/L (73-393)
--- NOTE | 2019-08-21 19:13 | CT_ITS ---
STUDY: CT ABDOMEN AND PELVIS WITHOUT CONTRAST REASON FOR EXAM: Male, 83 years old. Abdominal pain RADIATION DOSAGE (If Supplied By Facility): CTDIvol = ( 8.30 ) mGy, DLP = ( 383.64 ) mGycm TECHNIQUE: Transaxial images were obtained from the dome of the diaphragm to the symphysis pubis without oral contrast, and without intravenous contrast. Sagittal and coronal images were reconstructed. Individualized dose optimization techniques were used for this CT. COMPARISON: July 04, 2019 FINDINGS: Right pleural effusion possibly partially loculated with basilar consolidation/atelectasis. Right lower lobe calcified granuloma. Mild left basilar atelectasis. Mild cardiomegaly. Stable hypoattenuated 1.5 cm peripheral right hepatic nodule. Nonvisualization of the gallbladder. No significant dilatation of the extrahepatic biliary system. Granulomatous calcifications in the spleen. Normal pancreas. Normal bilateral adrenal glands. Stable 3.7 cm cystic nodule with peripheral calcifications at the upper pole of the right kidney. Normal left kidney. Normal visualized stomach. Normal small intestine. Diverticulosis of the colon. The appendix is visualized and appears normal. Calcified abdominal aorta. Mild focal infrarenal abdominal aortic dilatation measuring 2.3 cm. Normal inferior vena cava. Normal retroperitoneum. Normal urinary bladder. Stable prostate. Fatty density at the inguinal canals, right more than left. Increasing fluid collection in the right inguinal canal. Normal abdominal wall. Degenerative vertebral changes. CT/Abdomen/Pelvis without Cont IMPRESSION: Partially loculated right pleural collection with basilar consolidation/atelectasis. Cardiomegaly. Stable right hepatic hypoattenuated nodule. Right renal cystic lesion. Colonic diverticulosis. Mildly increasing fluid collection in the right inguinal canal. Electronically Signed: Omar Buck DO at 20:02 EDT Tel [phone], Service support ,
[2019-08-21 19:48] LABS: Bacteria 0 SEEN /hpf (None Seen)
[2019-08-21 19:51] LABS: Color, Urine Yellow (Yellow); Glucose, Dipstick Normal (Normal); Ketone-Dipstick Negative (Negative); Leukocyte Esterase-Dipstick 100 /ul (Negative); Nitrite-Dipstick Negative (Negative); Occult Blood-Urine Negative /ul (Negative); Protein-Dipstick 30 mg/dl (Negative); Specific Gravity, Urine 1.015 (1.002-1.030); Urine Bilirubin Dipstick Negative (Negative); Urine Clarity Clear (Clear); Urine Urobilinogen Normal (Normal)
[2019-08-21 19:59] LABS: Hyaline Cast 0-5 SEEN /lpf (0-5); Squamous Epithelial Cells - UA 0-5 SEEN /hpf (0-5)
[2019-08-21 20:01] LABS: Red Blood Cells-Urine 0-5 SEEN /hpf (0-5)
[2019-08-21 20:02] LABS: White Blood Cells 0-5 SEEN /hpf (0-5)
[2019-08-21 20:03] LABS: Mucous, Urine RARE /hpf (<or=2+)
--- NOTE | 2019-08-21 21:53 | ED.VISSUMM ---
- ER Visit Summary Date of Service: 08/21/19 Chief Complaint: Chest pain History of Present Illness: The patient is a 83 M who presents with a wide constellation of symptoms. At approximately 1630 hrs. he began to have some abdominal pain described as started on the right and extending diffusely across the abdomen. He also had some chest pressure as well as nausea but no vomiting. His blood pressure and it was elevated. He states that he has had a pleural effusion in the past that was drained he was seen Dr. Diaz for that. He has extensive medical history including pulmonary hypertension nonrheumatic aortic stenosis diabetes hypertension other valvular disorders atrial fibrillation prostate cancer chronic kidney disease diastolic congestive heart failure. Lives with his . He has had heart catheterizations in the past there were negative as well as stress test. Physical Examination: Afebrile vital signs are stable noted hypertension 191/83 Gen: Well-nourished well-developed Head: Normocephalic atraumatic Eyes: Perrl EOMI ENT: TMs clear no rhinorrhea moist mucous membranes Neck: Supple no lymphadenopathy no JVD nontender CVS: Regular rate rhythm he has 6 diastolic murmur Respiratory: No distress clear to auscultation bilaterally chest nontender Abdomen: Soft diffusely tender without guarding or rebound nondistended normal bowel sounds no masses Back: Nontender Extremity: Nontender no edema Skin: Normal color no rash Neuro: alert orientated ?3 CN II-XII intact normal strength sensation Psych: Normal affect normal mood Test Results: EKG sinus at a rate of 57. This was compared to prior from June of this year and is unchanged. CBC the white count 11.9 hemoglobin 1.6. 2 sets of cardiac enzymes were negative. Urinalysis negative. Elevated creatinine. Liver lipase negative. Chest x-ray shows a right moderate pleural effusion. CT pelvis did not demonstrate anything acute to explain his pain Emergency Department Course and Treatment: She was observed he states he is doing quite well. His would like to follow-up with Dr. Santizo for the pleural effusion. Did speak with Dr. Santizo and let him know that they would be following up. I do not have a clear etiology for the patient's pain but I also do not see anything obvious as the source. She will be discharged home with continued observation return if worsening or concerns. Impression: 1. Chest pain 2. Abdominal pain 3. Pleural effusion This note was generated with [employer] dictation software. It may contain incorrect words, spelling, and punctuation that were not noted in review of the chart prior to signing ED Disposition - Plan for ED Patient: Disposition: Home or Assisted Living Instructions: CHEST PAIN, Uncertain Cause, ABDOMINAL PAIN, Unkown Cause, (Male) Referrals: Bhargav Mcleod MD [Primary Care Provider] - 3-5 Days Tyrell Santizo MD [STAFF PHYSICIAN] - (call to arrange follow up)
== END 2019-08-21 22:00 | disposition home or self-care (01) ==
PROVIDERS: Emergency Provider Emergency Medicine; Family Provider Family Medicine; PCP Family Medicine
DX: R07.9 Chest pain, unspecified (principal); J90 Pleural effusion, not elsewhere classified; R10.84 Generalized abdominal pain; I13.0 Hypertensive heart and chronic kidney disease with heart failure and stage 1 through stage 4 chronic kidney disease, or unspecified chronic kidney disease; I50.32 Chronic diastolic (congestive) heart failure; I48.91 Unspecified atrial fibrillation; I27.20 Pulmonary hypertension, unspecified; N18.9 Chronic kidney disease, unspecified; E11.22 Type 2 diabetes mellitus with diabetic chronic kidney disease; Z85.46 Personal history of malignant neoplasm of prostate; Z79.899 Other long term (current) drug therapy
CPT/HCPCS: 36415; 71045; 74176; 80048; 80076; 81001; 83690; 84484; 85025; 93005; 99283; A4216

== ENCOUNTER → 2019-09-14 | Outpatient (CLI) | payer MEDICARE, SELFPAY ==
[2019-08-31 14:05] VITALS: BMI 28.4
--- NOTE | 2019-09-14 14:36 | ECHOCS_ITS ---
Reason For Study: VALVE REPL EVAL Procedure This was a 2D Doppler, Color Flow transthoracic echocardiogram. The study was technically difficult. Contrast injection was performed. Exam performed in department. Left Ventricle Normal size and thickness. The estimated ejection fraction is 65 %. Stage 1 diastolic dysfunction. No regional wall motion abnormalities noted. Right Ventricle Moderately dilated right ventricle. Normal systolic function. Atria The left atrium is moderately enlarged. The right atrium is mildly enlarged. Normal atrial septum. Mitral Valve The mitral valve is structurally normal. No prolapse or stenosis seen. Mild (1+) mitral valve insufficiency. Tricuspid Valve Normal tricuspid valve. Mild (1+) tricuspid valve insufficiency. Right ventricular systolic pressure estimated to be 52 mmHg. Moderate pulmonary hypertension. Aortic Valve Trisinus/trileaflet aortic valve. Severe focal aortic valve thickening. Moderate diffuse aortic valve thickening. Immobile non coronary cusp of aortic valve. Severe aortic stenosis. Peak aortic valve gradient 62 mmHg. Mean aortic valve gradient 40 mmHg. Calculated aortic valve area (continuity equation) is 0.9 cm2. Pulmonic Valve Normal pulmonic valve. Great Vessels Normal aortic root. Mild atherosclerosis of the aortic arch. Normal inferior vena cava. Inferior vena cava collapse with sniff. Pericardium/Pleural Small pericardial effusion. Circumferential effusion. There are no echocardiographic indications of cardiac tamponade. Medication 22 gauge I.V. with prn adaptor inserted into right arm. Diluted definity 2.5ml given slow IV push to enhance endocardial definition. MMode/2D Measurements & Calculations LVIDd: 4.3 cm IVSd: 0.97 cm LVOT diam: 2.1 cm LVIDs: 3.2 cm LVPWd: 1.1 cm RVDd: 4.1 cm FS: 25.1 % LVOT area: 3.3 cm2 Ao root diam: 3.0 cm LAV(MOD-bp): 70.5 ml EDV(MOD-sp4): 91.7 ml LAV(MOD-bp) Indexed: 38.0 ml/m2 ESV(MOD-sp4): 39.6 ml LAV(MOD-sp2): 74.4 ml EF(MOD-sp4): 56.9 % LAV(MOD-sp4): 68.5 ml EDV(MOD-sp2): 81.1 ml SV(MOD-sp4): 52.1 ml SV(MOD-sp2): 54.8 ml EF(MOD-sp2): 67.6 % LA dimension(2D): 4.5 cm Aortic Valve Planimetry: 0.96 cm2 LA A4 area: 22.2 cm2 RA A4 area: 19.5 cm2 Time Measurements MV dec time: 0.19 sec Doppler Measurements & Calculations MV E max navi: 82.7 cm/sec Lat Peak E' Navi: 6.6 cm/sec Med Peak E' Navi: 6.4 cm/sec MV A max navi: 98.9 cm/sec E/E' lat: 12.4 E/E' med: 13.0 MV E/A: 0.84 MV V2 max: 104.9 cm/sec Ao V2 max: 385.2 cm/sec LV V1 max: 106.1 cm/sec MV max P.4 mmHg Ao max P.4 mmHg LV V1 max P.5 mmHg MV V2 mean: 63.9 cm/sec Ao V2 mean: 286.7 cm/sec LV V1 mean P.5 mmHg MV mean P.8 mmHg Ao mean P.9 mmHg LV V1 mean: 74.6 cm/sec MV V2 VTI: 39.5 cm Ao V2 VTI: 81.9 cm LV V1 VTI: 23.8 cm MVA(VTI): 2.0 cm2 SEVEN(I,D): 0.96 cm2 SEVEN(V,D): 0.91 cm2 SV(LVOT): 78.8 ml PA V2 max: 130.4 cm/sec TR max navi: 346.9 cm/sec TR max P.2 mmHg MV P1/2t-pr_phl: 109.5 msec Interpretation Summary The estimated ejection fraction is 65 %. Stage 1 diastolic dysfunction. Moderately dilated right ventricle. The left atrium is moderately enlarged. Mild (1+) mitral valve insufficiency. Mild (1+) tricuspid valve insufficiency. Right ventricular systolic pressure estimated to be 52 mmHg. Moderate to severe pulmonary hypertension. Immobile non coronary cusp of aortic valve. Severe aortic stenosis. Peak aortic valve gradient 62 mmHg. Mean aortic valve gradient 40 mmHg. Calculated aortic valve area (continuity equation) is 0.9 cm2. Small pericardial effusion. Circumferential effusion. There are no echocardiographic indications of cardiac tamponade. Compared to echo report dated 12/20/2018, LV Function has remained the same, but aortic stenosis is now severe and RVSP has worsened from 39 to 58 mm Hg. Ordering Physician: Ozzie Porter Referring Physician: ABBIE BROWNLEE Performed By: Birdie Mendosa, RDCS, RVT
== END | disposition home or self-care (01) ==
PROVIDERS: Family Provider Family Medicine; PCP Family Medicine; Referring Provider Internal Medicine Cardiovascular Disease; Visit Provider Internal Medicine Cardiovascular Disease
DX: R06.02 Shortness of breath (principal); I48.0 Paroxysmal atrial fibrillation; Z87.09 Personal history of other diseases of the respiratory system
CPT/HCPCS: 93306; Q9957; A4216; C8929

== ENCOUNTER → 2019-09-15 | Outpatient (CLI) | payer MEDICARE, SELFPAY ==
[2019-08-31 14:05] VITALS: BMI 28.4
== END | disposition home or self-care (01) ==
PROVIDERS: Family Provider Family Medicine; PCP Family Medicine; Referring Provider Family Medicine; Visit Provider Family Medicine
DX: R19.7 Diarrhea, unspecified (principal)
CPT/HCPCS: 87493; 87506

== ENCOUNTER → 2019-09-18 | Outpatient (CLI) | payer MEDICARE, SELFPAY ==
[2019-08-31 14:05] VITALS: BMI 28.4
--- NOTE | 2019-09-18 13:50 | RAD_ITS ---
STUDY: X-RAY CHEST REASON FOR EXAM: Male, 83 years old. Abnormal stress test. Evaluation before heart catheterization. TECHNIQUE: Frontal and lateral views of the chest. COMPARISON: August 21, 2019 FINDINGS: Bilateral pleural effusions, right greater than left, with increased left pleural effusion since the prior study. Compression atelectasis of both lower lung mckee, right greater than left. Mild interstitial pattern unchanged. Cardiomegaly unchanged. Normal mediastinum and monalisa. Normal visualized pulmonary arteries. Aortic tortuosity with calcification unchanged. Normal visualized thoracic spine. 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 There is no demonstrated abnormality of the visualized soft tissue structures of the upper abdomen. RAD/Chest PA and Lateral IMPRESSION: Cardiomegaly with increased pleural effusions bilaterally, right greater than left, with mild interstitial pattern. Findings compatible with slight worsening of interstitial edema/congestive failure. Electronically Signed: Eliecer Sahu MD at 17:21 EDT , Service support ,
[2019-09-18 15:00] LABS: Hematocrit 35.4 % (40-54); Hemoglobin 10.8 g/dL (13.0-16.5); Mean Corp Hgb Conc 30.5 g/dL (32-36); Mean Corpuscular Hgb 26.8 pg (27.0-32.0); Mean Corpuscular Volume 87.8 fL (80-94); Mean Platelet Vol. 9.7 fl (6.2-12.0); Platelet Count 217 K/mm3 (150-450); RBC Distribution Width CV 14.2 % (11.6-14.6); RBC Distribution Width SD 45.9 fl (35.1-43.9); Red Blood Count 4.03 M/mm3 (4.6-6.2); White Blood Count 5.7 K/mm3 (4.4-11.0)
[2019-09-18 15:09] LABS: International Normalized Ratio 1.3; Prothrombin Time (Protime)PT. 15.6 SECONDS (11.7-14.9)
[2019-09-18 15:10] LABS: Partial Thromboplast Time 30.9 Seconds (24.1-36.2)
[2019-09-18 15:33] LABS: Anion Gap 7 (5-15); BUN 45 mg/dL (7-18); BUN/Creat Ratio 19.5 RATIO (10-20); Calcium,Total 8.3 mg/dL (8.5-10.1); Chloride 102 mmol/L (98-107); Creatinine, Serum 2.31 mg/dL (0.70-1.30); EST Glomerular Filtration Rate 29 mL/min (>60); Est Glom Filt Rate - Afr Amer 35 mL/min (>60); Glucose 156 mg/dL (74-106); Potassium 4.8 mmol/L (3.5-5.1); Sodium Level 137 mmol/L (136-145)
== END | disposition home or self-care (01) ==
LOC: LAB 13:33
PROVIDERS: Internal Medicine Cardiovascular Disease; Family Provider Family Medicine; PCP Family Medicine; Referring Provider Internal Medicine Cardiovascular Disease; Visit Provider Internal Medicine Cardiovascular Disease
DX: R07.9 Chest pain, unspecified (principal); R93.1 Abnormal findings on diagnostic imaging of heart and coronary circulation; I50.32 Chronic diastolic (congestive) heart failure; R06.02 Shortness of breath; I48.91 Unspecified atrial fibrillation; I35.0 Nonrheumatic aortic (valve) stenosis; J90 Pleural effusion, not elsewhere classified
CPT/HCPCS: 36415; 71046; 80048; 85027; 85610; 85730

== ENCOUNTER 2019-09-25 08:56 | Day surgery (SDC) | payer MEDICARE, SELFPAY ==
[2019-08-31 14:05] VITALS: BMI 28.4
[2019-09-18 16:08] VITALS: BMI 28.4
[2019-09-22 14:12] VITALS: BMI 28.4
--- NOTE | 2019-09-25 11:38 | CL.D_ITS ---
Patient Name: IVAN STANLEY Study Date: 09/25/2019 Performing: Ozzie Porter MD Ht: 64.96 inches 165 cm : 1935 Wt: 172.8 lbs 78.38 kg Age: 83 Gender: male BSA: 1.86 PROCEDURE(S) PERFORMED [id number]/LHC/COR CLINICAL PROFILE AND INDICATIONS Indications: Stable Known CAD, Valvular Disease Heart Failure: NYHA Class: 1, Newly Diagnosed: No, Heart Failure Type: Systolic Stress/Imaging Stress/Image Study Performed: No Angina Classification Anginal Classification w/in 2 Weeks: No symptoms CAD Presentations: Other: Dyspnea on exertion Comorbidities/Risk Factors: Hypertension Dyslipidemia Diabetes Mellitus: Diabetes Therapy: Oral CONCLUSIONS Non obstructive coronary arteries Aortic Valve Stenosis- Moderate Right heart pressures - moderately elevated RECOMMENDATIONS Management as per referring Materials Engineer increase lasix to 40mg po qam and 20 mg po qhs. Repeat BMP in 1 week. Would not recommend TAVR at this time as aortic valve gradient appears moderate at best and SEVEN=1.83c m2, not appreciably different then gradients after TAVR. Manual sheath removal. DESCRIPTION OF PROCEDURE The patient arrived to the procedure lab. The risks and benefits of the procedure as well as a full d escription of our services here and current unavailability of surgical backup were fully explained to the patient and/or their significant other prior to the catheterization. The Timeout was completed, verifying the correct patient and procedure. The patient's procedural site was prepped and draped in the usual fashion. Local anesthetic was given subcutaneously to right groin region with Lidocaine 2%. Using a modified Seldinger technique, arterial access was obtained via the right femoral artery, a 4 Fr sheath was inserted Venous access was obtained via the right femoral vein, a 7Fr sheath was insert ed. A 7Fr thermal dilution catheter was inserted and right heart pressures were recorded, it was then advanced to PA position for cardiac outputs. Thermal dilution cardiac outputs were then recorded. O2 saturations were then obtained. LV to AO pullback pressures were then recorded. Simultaneous pressures were then recorded. The Thermal dilution catheter was then removed. Left Coron solomon Artery selective angiography was performed in multiple views using a 4 Fr. JL5 catheter. Right Co ronary Artery selective angiography was then performed in multiple views using a 4 Fr. 3DRC catheter. The arterial sheath was pulled and manual compression applied until hemostasis is achieved. CORONARY ANGIOGRAPHY DOMINANCE: Right Dominant LEFT HEART ASSESSMENT Left Ventricular Ejection Fraction: Not assessed Elevated Left Ventricular End Diastolic Pressure LVEDP: 15 mmHg RIGHT HEART ASSESSMENT Thermal CO: 6.42 Thermal CI: 3.45 Suzan CO: 10.53 Suzan CI: 5.66 PW: 10/08 8 PA: 49/13 25 RV: 45/0 13 RA: 11/09 9 PVR: 212 Aortic Valve Area: 1.86 Aortic Valve Index: 1 Aortic Valve Mean Gradient: 43.1 Right Heart pressures - elevated Pulmonary Hypertension Moderate LEFT MAIN: Angiographically normal LEFT ANTERIOR DESCENDING ARTERY: MID LAD: Mild luminal irregularities less than 30% CIRCUMFLEX ARTERY: Mild luminal irregularities less than 30% RIGHT CORONARY ARTERY: Mild luminal irregularities less than 30% VALVE FINDINGS: Aortic Valve Stenosis - moderate COMPLICATIONS No Complications PROCEDURE MEDICATIONS Oxygen: 0 L/min via nasal cannula- off at this time IV Fluids: .9 NaCl IV started @ 200 ml/hr 09/25/2019 09:24:28 SUMMARY OF HEMODYNAMIC DATA Time AIR REST ECG 09:23:57 RA 12 (9) SV 11:01:37 RV 45/0, 13 11:02:51 PA 49/13 (25) PA 11:09:48 PW 10/08 (8) PV 11:11:45 LV 160/-16, 14 11:19:14 LV 159/-16, 14 11:19:20 LV 163/-15, 15 11:19:46 PW 10/11 (9) 11:19:46 LV 165/-14, 16 11:20:03 RV 48/3, 13 11:20:03 LV 160/-16, 15 11:20:09 RV 45/1, 13 11:20:09 LVp 167/-14, 19 11:20:36 AOp 125/51 (77) 11:20:41 Valve Area (c P-P/ms Time AIR REST Aortic 1.86 43.1 mn/330 ms42.0 pk/330 ms 11:20:36 Type SV CO (l/m) CI (l/m/ HR Time AIR REST Thermal 156.60 6.42 3.45 41 09:23:57 Suzan 256.80 10.53 5.66 41 09:23:57 Label % O2 Pres/Loc Time AIR REST PA 70 PA 11:25:35 AO 86 PV 11:25:38 Signed By Ozzie Porter MD On 09/25/2019 11:37:36 Ozzie Porter MD
[2019-09-25 11:40] LABS: Base Excess -1 mmol/L (-2 to +2); Bicarbonate 23.4 mmol/L (22-26); Blood Gas Specimen Type ART; PO2 50 mmHG (75-100); SO2 86 % (95-99); Total Carbon Dioxide 24 mmol/L; pCO2 36.3 mmHg (35-45); pH 7.42 (7.35-7.45)
[2019-09-25 11:40] LABS: Blood Gas Specimen Type VEN; VBG BASE EXCESS -2 mmol/L (-1.0-3.5); VBG Bicarbonate 23 mmol/L (22-26); VBG Oxygen Content 24 mmol/L (23-33); VBG PO2 40 mmHg (25-40); VBG SO2 76 % (50-70); VBG pCO2 36.9 mmHg (41-51); VBG pH 7.41 (7.32-7.42)
[2019-09-25 11:40] LABS: Blood Gas Specimen Type VEN; VBG BASE EXCESS -1 mmol/L (-1.0-3.5); VBG Bicarbonate 24 mmol/L (22-26); VBG Oxygen Content 25 mmol/L (23-33); VBG PO2 36 mmHg (25-40); VBG SO2 70 % (50-70); VBG pCO2 38.2 mmHg (41-51); VBG pH 7.41 (7.32-7.42)
--- NOTE | 2019-10-16 12:39 | HP.PCM_ITS ---
Problem List (1) Atrial fibrillation Status: Acute Qualifiers: (2) Non-rheumatic tricuspid valve insufficiency Status: Chronic (3) Nonrheumatic mitral (valve) insufficiency Status: Chronic (4) PAF (paroxysmal atrial fibrillation) Status: Chronic (5) 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 Status: Chronic History and Physical Date of Admission: 09/25/19 [facility] [address] [place] [address] OFFICE VISIT Date of Service: 08/31/19 MR#: [id number] Acct: [id number] Name: IVAN STANLEY Rep #: : [id number] Provider: Ozzie pearce MD Age/Sex: 83/M Location: [facility] [place] Status: Signed HPI HPI History of Present Illness Details: Details: Details: HPI Mr Elmore is a very pleasant 83-year-old mildly demented, diabetic gentleman with a history of hypertension, diastolic heart failure, status post left pleural effusion with thoracentesis several years ago. At that time he apparently saw Dr. Robertson in consultation. At that time he performed a left heart catheterization. Patient had relatively normal coronary arteries, and normal LV function. Patient returned recently to [facility] with shortness of breath. He was found to be in atrial fibrillation, and was found to have a significant right- sided pleural effusion. Patient underwent a right-sided thoracentesis and removed approximately 2 L of fluid. He then underwent left heart catheterization by ri on 01/29/14. At that time he was found to have relatively normal coronary arteries, and his LV function was approximate 45-50%. His RV pressure was 44, and his RV sat was 66%. We were unable to cannulate into the pulmonary tree due to his enlarged right side of his heart. Patient underwent subsequent DC cardioversion on 03/17/14. Several visits ago, he developed a syncopal episode while sitting in a chair at a restorationism event. According to the , the patient has been tired and weak during that morning time, sat down in a chair, and when she brought him his meal basically tilted his head forward and had a syncopal episode. He had no seizure activity. According to the he was unconscious for pr 5 minutes time. He spontaneously awoke, Moved all 4 extremities and was completely lucid. He was brought to [facility] ER where he was seen by hospitalist. An echocardiogram that day demonstrated preserved LV function with an EF of 60%. His Lasix was discontinued, however does not appear that it was discontinued upon discharge. Patient had recurrent atrial fibrillation was treated with amiodarone. He recently underwent repeat cardioversion on 02/21/15 which was successful. The patient has significant memory issues and dementia, but unfortunately was unable to tolerate Namenda due to its interaction with Coreg. He walks fairly slowly. He has had no further pleural effusions to his knowledge. A chest x- ray done 12/02/15 demonstrated by basilar atelectasis and blunting of both costophrenic angles. Patient recently has had dyspnea on exertion and shortness of breath with walking. It is unclear whether he has any angina as it is difficult to get a history given his dementia. He had a stress test done in December 2017 which was a non-walking nuclear stress test, which was negative for inducible ischemia. PFTs in 2015 were normal. Patient was recently readmitted for yet another right-sided pleural effusion and this time underwent a Pleurx catheter placement by Dr. Pastrana on 02/21/19. His catheter remained in place until around June 2019. Since its removal, the patient has had minimal recurrence of his right pleural effusion. More recently on 08/21/2019 the patient developed abdominal discomfort, nausea, and had hypertension at home with systolic pressures in the 190s. The patient was brought to the emergency room where he was evaluated and eventually sent home. Since that time the patient has had intermittent chest pain several times per week, mostly atypical, and nonexertional. His indicates that he has significant dyspnea on exertion as well as balance issues as well. She states that his nausea and upset stomach occur in the morning after he takes all of his pills. Patient no longer has his gallbladder. EKG dated 08/21/2019 shows sinus bradycardia with QT corrected of 476 ms, no acute changes. His most recent echocardiogram dated 12/20/2018 showed the following: Left ventricular systolic function is normal. The estimated ejection fraction is 60 %. Mildly dilated right ventricle. The left atrium is mildly enlarged. The right atrium is mildly enlarged. There is mild mitral annular calcification. Mild diffuse mitral valve thickening. Mild-Moderate (1-2+) mitral valve insufficiency. Moderate (2+) tricuspid valve insufficiency. Moderate to severe aortic valve stenosis. Right ventricular systolic pressure estimated to be 39 mmHg. Peak/mean aortic gradient of 34/21, SEVEN=0.88cm2 Unable to assess diastolic dysfunction. In our office today his blood pressure is 140/60, and pulse is 64 and regular. His physical exam shows pleuritic-type rub on the right side, positive egophony about one third the way up on the right side, left side is clear to auscultation. He has no edema. His lipids as of 02/12/16 show An LDL of 112, and an HDL of 34. Repeat lipids as of 12/26/18 show an LDL of 90 and HDL 32. EKG dated 08/31/2019 shows sinus bradycardia, left anterior hemiblock, QT corrected of 468 ms, no acute changes or previous myocardial infarction. 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 Accompanied by: Is patient in pain?: No Allergies cimetidine HCl [From Tagamet] Allergy (Verified 08/21/19 17:42) Rash ciprofloxacin [From Cipro] Allergy (Verified 08/21/19 17:42) Rash amoxicillin trihydrate [From Augmentin] Adverse Reaction (Verified 08/21/19 17:42) Abd cramps/diarrhea cefdinir [From Omnicef] Adverse Reaction (Verified 08/21/19 17:42) Diarrhea indomethacin sodium [From Indocin] Adverse Reaction (Verified 08/21/19 17:42) Nausea memantine HCl [From Namenda] Adverse Reaction (Verified 08/21/19 17:42) dizziness potassium clavulanate [From Augmentin] Adverse Reaction (Verified 08/21/19 17:42) Abd cramps/diarrhea sitagliptin phosphate [From Januvia] Adverse Reaction (Verified 08/21/19 17:42) Nausea Medications Cholecalciferol (Vitamin D3) [Vitamin D3] 1,000 unit PO DAILY 12/25/13 [History Confirmed 08/31/19] Cyanocobalamin [Vitamin B12] 1,000 mcg PO DAILY@0800 11/17/14 [History Confirmed 08/31/19] Loratadine 10 mg PO DINNER PRN 03/15/17 [History Confirmed 08/31/19] magnesium oxide 400 mg (241.3 mg magnesium) tablet 400 mg PO DAILY 12/30/17 [History Confirmed 08/31/19] Ascorbic Acid [Vitamin C] 1,000 mg PO LUNCH 12/20/18 [History Confirmed 08/31/19] Galantamine HBr 16 mg PO DAILY 12/20/18 [History Confirmed 08/31/19] Tamsulosin HCl [Flomax] 0.4 mg PO DINNER 12/20/18 [History Confirmed 08/31/19] Calcium Carbonate [Calcium] 600 mg PO DAILY 01/26/19 [History Confirmed 08/31/19] carvedilol 6.25 mg tablet 6.25 mg PO BID #180 tab 03/03/19 [Rx Confirmed 08/31/19] Amiodarone HCl 200 mg PO DAILY 03/10/19 [History Confirmed 08/31/19] Finasteride [Proscar] 5 mg PO DINNER 04/17/19 [History Confirmed 08/31/19] Buspirone HCl 10 mg PO BID 06/24/19 [History Confirmed 08/31/19] Nitroglycerin 0.4 mg SL X1 PRN 06/24/19 [History Confirmed 08/31/19] Ferrous Sulfate 325 mg PO BID #60 tab 07/06/19 [Rx Confirmed 08/31/19] Furosemide [Lasix] 20 mg PO BIDLX #60 tab 07/06/19 [Rx Confirmed 08/31/19] Pantoprazole Sodium [Protonix] 40 mg PO BID #60 tab 07/06/19 [Rx Confirmed 08/31/19] amlodipine 5 mg tablet 5 mg PO DAILY 08/31/19 [History Confirmed 08/31/19] [facility] Medical History Nonrheumatic mitral (valve) insufficiency (Chronic) Non-rheumatic tricuspid valve insufficiency (Chronic) Non-rheumatic aortic stenosis (Chronic) Chronic diastolic (congestive) heart failure (Chronic) History of pleural effusion (Chronic) 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 (Chronic) 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) Hypertension (Chronic) Chronic renal failure, stage 3 (moderate) (Chronic) History of anxiety disorder (Chronic) Generalized osteoarthritis (Chronic) History of gout (Chronic) Mild dementia (Chronic) Rheumatoid arthritis (Chronic) Diabetes mellitus, type II (Chronic) History of prostate cancer (Chronic) Anemia of chronic disease (Chronic) PAF (paroxysmal atrial fibrillation) (Chronic) Syncope and collapse (Chronic) Surgical History Recurrent right pleural effusion (Acute 02/15/19) History of left heart catheterization (Chronic ~01/2014) History of bilateral inguinal hernia repair (Resolved) History of cholecystectomy (Resolved ~1989) History of left knee replacement (Resolved) History of right shoulder replacement (Resolved) History of tonsillectomy (Resolved) Family History Father , of [place] CAD (coronary artery disease) Myocardial infarction Brother Diabetes Social History (Updated 08/31/19 @ 14:42 by Ozzie Porter MD) Smoking Status: Never smoker alcohol intake: never caffeine: Yes Type: coffee Number of servings: 1 ROS Const Const: Positive for other (Went to ER w/abd pain, nausea, cp. Had CT. Trop neg. Still having sx); negative for fatigue, weakness, body ache, fever(s), headache(s), chills, frequent falls, night sweats, daytime sleepiness, difficulty sleeping, excessive sweating, weight gain, weight loss, increased appetite, poor appetite or anorexia Eyes Eyes: Negative for blind spots, loss of peripheral vision, transient loss of vision, blurry vision, change in vision, double vision, floaters, tunnel vision or other ENT ENT: Negative for headache(s), dizziness, hearing loss, tinnitus, Nosebleed/epistaxis, balance problems, post nasal drip, lip swelling, tongue swelling, bleeding gums, hoarseness, neck pain, dry mouth or other Cardio Chest Pain: Yes (Intermittent, lasting 30 seconds. Goes down both arms.) Character: squeezing, other (pressure) Onset: at rest Location: mid sternal, other (radiates down both arms. Also intermittent abd pain) Duration: brief (30 seconds or less) Exacerbation: other (spontaneous) Relieving: other (spontaneous) Palpitations: No Edema: None Muscle aches with walking: None Resp Respiratory: Positive for SOB with activity (Only once in awhile); negative for SOB at rest, SOB orthopnea\SOB lying down, Cough, Coughing up blood/hemoptysis, chest congestion, pain on inspiration, snoring, stridor, wh eezing, crackles, paroxysmal nocturnal dyspnea or other GI GI: Positive for nausea, cramping and other (abdominal pain, intermittent, just at rest: not during meals.); negative vomiting, heartburn, constipation, belching, bloating, vomiting blood/hematemesis, bright, red blood in stools, black,tarry stools, loose stools or Difficulty Swallowing : Negative for hematuria, frequent nighttime urination/ nocturia, erectile dysfunction or abnormal vaginal bleeding Musc Musc: Negative for muscle aches/ myalgia, muscle weakness, joint pain or balance problems Skin Skin: Negative redness, non-healing lesions, rash, unusual bruising, skin ulcer, wounds, jaundice or other Neuro Neuro: Negative for dizziness, lightheadedness, near syncope, syncope, orthostatic symptoms, frequent falls, headache(s), weakness, confusion, memory loss, restless legs, blurry vision, double vision, vertigo, seizures, lack of coordination or other Rolly Hematologic/Lymphatic: Negative for easy bleeding, easy bruising, enlarged lymph nodes or other Endo Endo: Negative for fatigue, cold intolerance, heat intolerance, excessive sweating, flushing, increased thirst/drinking, increased hunger, hair loss, hair growth or other Psych Psych: Negative for anxiety, depression, thoughts of harming anyone, thoughts of harming yourself, visual hallucinations, panic attacks or audible hallucinations Allergy Allergy/Immunology: Negative for throat swelling, Negative for tongue swelling, Negative for hives, Negative for rash, Negative for lip swelling Cardiology Exam Const Appearance: cooperative, healthy appearing and no acute distress Nutritional Appearance: well nourished Orientation: alert, oriented x3 and oriented to person Head Head: normal to inspection, normocephalic and atraumatic Nose: external nose normal Face and Sinus: face symmetric Mouth: oral mucosae normal Eyes General: appearance normal, both eyes and all related structures Eyelids: eyelids normal Conjunctivae: conjunctivae normal Pupils: PERRL and normal by confrontation EOM: EOM intact bilaterally Neck Neck: normal visual inspection and full ROM Carotids: normal carotid upstroke Chest Chest inspection: normal inspection of the chest Auscultation: Bilateral: Clear to Auscultation Cardio Palpation: normal PMI Rate: regular rate Rhythm: regular rhythm Heart sounds: S1 normal and S2 normal GI GI: normal to inspection, no hepatosplenomegaly and bowel sounds present Neuro General: alert, awake, oriented x3, CN's II-XI intact bilaterally and moves all extremities Skin Skin: no rashes or lesions noted Extremities Pulses: Normal: Right Femoral Pulse, Left Femoral Pulse, Right Dorsalis Pedis Pulse, Left Dorsalis Pedis Pulse, Right Posterior Tibial Pulse, Left Posterior Tibial Pulse, Right Radial Pulse, Left Radial Pulse Lower Extremity Edema: None: Bilateral Psych Psychological: normal affect Assessment & Plan 1. 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 Plan 1. Pulmonary hypertension: The patient has secondary pulmonary hypertension probably as a result of his aortic stenosis. His aortic stenosis may be underestimated based upon the peak and mean gradient but his aortic area is estimated to be 0.88 cm? consistent with severe aortic stenosis. He has 2+ carotid upstroke bilaterally indicating that his aortic stenosis does not appear to be critical at this time. Given the patient's recurrent chest pain, and aortic stenosis, I recommend he undergo a repeat echocardiogram to determine if his aortic stenosis is in fact worsening particularly in light of his need for his Pleurx device in the spring 2018. In addition I recommend he undergo a dobutamine echocardiogram with assessment of peak and mean gradient at peak infusion to determine if he may benefit from TAVR evaluation. Patient's chest pain appears to be atypical and his last catheterization was several years ago in 2013, so he may have had progression of coronary disease. I see no acute changes on his EKG today. In the meantime he will continue his amlodipine, Coreg, Lasix. 2. PAF (paroxysmal atrial fibrillation) I48.0 Plan 2. Paroxysmal atrial fibrillation: Patient appears to be in sinus rhythm in fact sinus bradycardia today. I believe he would benefit from amiodarone induced sinus rhythm to maintain his cardiac output and his atrial kick. Recommend continuing amiodarone. Orders Orders: 12 Lead EKG performed by [facility] Today Echo Complete Today 3. Valvular heart disease I38 Plan 3. Aortic stenosis: Again we will repeat his echocardiogram and obtain a peak mean gradient at peak infusion on his dobutamine stress test to ascertain whether he may benefit from TAVR. 4. Return office in 4 months with either myself or an MUSIC GRAPHER. This note was generated using a voice recognition system and there may be incorrect words, spelling or punctuation that were not noted when reviewing the office note prior to saving. Orders Orders: Stress Test Echo w/o Contrast Today Plan Detail Other Orders Orders: 12 Lead EKG performed by [facility] Today R07.9, Z79.899 Echo Complete Today I10, R06.02, Z87.09 Stress Test Echo w/o Contrast Today I48.91, J90, R06.02 Follow Up +4M (German or NIKA) Coding Level of Care Code Off vis,est,level 4 Diagnoses 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 PAF (paroxysmal atrial fibrillation) I48.0 Valvular heart disease I38 Coding Level of Care Code Off vis,est,level 4 Diagnoses 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 PAF (paroxysmal atrial fibrillation) I48.0 Valvular heart disease I38 Supplemental Info Supplemental Information Labs LDL Cholesterol 69 mg/dL (0-130) 08/03/19 HDL Cholesterol 35 mg/dL (40-) L 08/03/19 Triglycerides 150 mg/dL (-199) 08/03/19 VLDL Cholesterol 30 mg/dL (5-40) 08/03/19 Diagnostics Electrocardiogram 08/31/19 Echocardiogram 12/20/18 Stress Test Nuclear Medicine 01/06/18 Stress Test 01/06/18 Abdomen Ultrasound 04/01/18 Chest X-Ray 08/21/19 Pulmonary Pulmonary Function Test 02/21/16 Pulmonary Exercise Test 04/19/19 08/31/19 1443 <Electronically signed by Ozzie Porter MD> Date _ Ozzie Porter MD Cosigner Signature: Date (if applicable) CC: Bhargav Mcleod MD ~ Interventional cardiology addendum: Patient seen and examined, and no interim change from his history and physical. The risks/benefits of the procedure were thoroughly explained the patient and informed consent was obtained. Cardiac catheterization to follow.
== END 2019-09-25 15:51 | disposition home or self-care (01) ==
PROVIDERS: Family Provider Family Medicine; PCP Family Medicine; Referring Provider Internal Medicine Cardiovascular Disease; Visit Provider Internal Medicine Cardiovascular Disease
DX: I25.10 Atherosclerotic heart disease of native coronary artery without angina pectoris (principal); R06.00 Dyspnea, unspecified; I34.0 Nonrheumatic mitral (valve) insufficiency; I36.1 Nonrheumatic tricuspid (valve) insufficiency; I48.0 Paroxysmal atrial fibrillation; I27.29 Other secondary pulmonary hypertension; F03.90 Unspecified dementia, unspecified severity, without behavioral disturbance, psychotic disturbance, mood disturbance, and anxiety; I13.0 Hypertensive heart and chronic kidney disease with heart failure and stage 1 through stage 4 chronic kidney disease, or unspecified chronic kidney disease; E11.22 Type 2 diabetes mellitus with diabetic chronic kidney disease; I50.32 Chronic diastolic (congestive) heart failure; N18.3 Chronic kidney disease, stage 3 (moderate); E78.5 Hyperlipidemia, unspecified; F41.9 Anxiety disorder, unspecified; M19.90 Unspecified osteoarthritis, unspecified site; M10.9 Gout, unspecified; M06.9 Rheumatoid arthritis, unspecified; D63.1 Anemia in chronic kidney disease; Z85.46 Personal history of malignant neoplasm of prostate; Z79.01 Long term (current) use of anticoagulants; Z79.84 Long term (current) use of oral hypoglycemic drugs; Z79.899 Other long term (current) drug therapy
CPT/HCPCS: 82803; 93456; J7040; Q9967; C1751; C1769; C1894

== ENCOUNTER 2019-09-27 12:24 | Inpatient (IN) | payer MEDICARE, SELFPAY ==
[2019-09-22 14:12] VITALS: BMI 28.4
[2019-09-27] VITALS (15 sets, daily range): BP systolic 116–156; BP diastolic 55–86; PULSE 53–91; RESP 18–24; TEMP 36.4–37; O2SAT 91–98; BMI 65.2; BMI 28.2
--- NOTE | 2019-09-27 12:55 | ED.DCSUM_ITS ---
- ER Visit Summary Date of Service: 09/27/19 Chief Complaint: Shortness of breath History of Present Illness: The patient is a 83 M who presents with shortness of breath that has been getting worse over the past few days. Patient states his breathing is worse with lying flat and with exertion. Patient admits to a cough but denies any sputum production. Patient denies any fevers or chills. Patient denies any chest pain. Patient saw his primary care physician today who referred him to the emergency department. Patient had a recent cardiac catheterization which showed a right pleural effusion. Patient also has a history of renal failure and is supposed to see a motor vehicle emissions inspector on October 04. Physical Examination: Vital signs are stable except for mild bradycardia of 53. Patient is afebrile. Patient is in no acute distress. Oral mucosa is pink and moist. Neck is supple. Trachea is midline. There is no JVD noted. Heart was irregular and bradycardic. Lungs were diminished bilaterally. There is mild expiratory wheezing. There is good respiratory effort. Abdomen is soft. Bowel sounds are normal. There is no tenderness. Cranial nerves II through XII are intact. There are no focal motor or sensory deficits noted. Extremities are intact. There is no calf tenderness or edema noted. Test Results: PA and lateral chest x-ray was obtained. There is bilateral pleural effusions that have gotten worse. CBC showed a mild anemia with a he moglobin of 10.9 and hematocrit 35.3. Creatinine was slightly elevated at 2.28. Urinalysis does not show any evidence of urinary tract infection. Troponin was normal. BNP was 383.6. Emergency Department Course and Treatment: Patient was placed on oxygen. Patient had feeling of shortness of breath along with his mild expiratory wheezing. Patient was given a DuoNeb aerosol for this. Patient felt better after this. Patient was also given a dose of Lasix. Case was discussed with the hospitalist. He will admit the patient to his service. Patient understood and was agreeable with the plan. All questions were answered. Disposition: Admit to hospital Impression: 1. CHF exacerbation 2. Bilateral pleural effusions This note was generated with INNFOC[employer] software. It may contain incorrect words, spelling, and punctuation that were not noted in review of the chart prior to signing ED Disposition - Plan for ED Patient: Disposition: Acute Care Hospital [facility] Diagnosis: Pleural effusion, Chronic diastolic (congestive) heart failure
[2019-09-27 13:22] LABS: Absolute Lymphocyte Count 0.45 X10^3/uL (0.83-4.51); Absolute Neutrophil Count 7.4 X10^3/uL (2.0-7.7); Basophil# 0.06 X10^3/uL; Basophil% 0.7 % (0-1); Eosinophil# 0.15 X10^3/uL; Eosinophils% 1.7 % (0-5); Hematocrit 35.3 % (40-54); Hemoglobin 10.9 g/dL (13.0-16.5); Lymphocyte # 0.45 X10^3/ul (4.0); Mean Corp Hgb Conc 30.9 g/dL (32-36); Mean Corpuscular Hgb 26.5 pg (27.0-32.0); Mean Corpuscular Volume 85.7 fL (80-94); Mean Platelet Vol. 9.8 fl (6.2-12.0); Monocyte# 0.84 X10^3/uL; Monocyte% 9.3 % (0-10); NRBC Flagged by Analyzer 0 % (0-5); Neutrophil # 7.41 X10^3/uL (2.7-7.7); Neutrophil % 82.4 % (47-70); POSITIVE DIFFERENTIAL YES; Platelet Count 193 K/mm3 (150-450); RBC Distribution Width CV 14.8 % (11.6-14.6); RBC Distribution Width SD 46.8 fl (35.1-43.9); Red Blood Count 4.12 M/mm3 (4.6-6.2)
[2019-09-27 13:25] LABS: Differential Indicated SCAN CRITERIA MET
--- NOTE | 2019-09-27 13:28 | RAD_ITS ---
STUDY: X-RAY CHEST REASON FOR EXAM: Male, 83 years old. Shortness of breath. TECHNIQUE: PA and lateral views of the chest. COMPARISON: Comparison is made with prior examination dated September 18, 2019. FINDINGS: EKG electrodes are seen. Since prior study, there has been progressive bilateral pleural effusions with bibasilar infiltration and/or atelectasis worse on the right side. Normal size heart. Normal mediastinum and monalisa. Normal visualized pulmonary arteries. There is atherosclerotic calcification of the aortic arch with tortuosity. Normal visualized thoracic spine. The patient is status post right reverse shoulder replacement. There is no demonstrated abnormality of the visualized soft tissue structures of the upper abdomen. RAD/Chest PA and Lateral IMPRESSION: Progressive increase in the bilateral pleural effusions with underlying infiltration and/or atelectasis is worse on the right side. Electronically Signed: Justin Castro, at 13:58 EDT , Service support ,
[2019-09-27 13:33] LABS: Mucous, Urine 0 SEEN /hpf (<or=2+); Red Blood Cells-Urine 0 SEEN /hpf (0-5); White Blood Cells 0 SEEN /hpf (0-5)
[2019-09-27 13:38] LABS: Color, Urine Yellow (Yellow); Glucose, Dipstick Normal (Normal); Ketone-Dipstick Negative (Negative); Leukocyte Esterase-Dipstick Negative /ul (Negative); Nitrite-Dipstick Negative (Negative); Occult Blood-Urine Negative /ul (Negative); Protein-Dipstick Negative (Negative); Specific Gravity, Urine 1.015 (1.002-1.030); Urine Bilirubin Dipstick Negative (Negative); Urine Clarity Clear (Clear); Urine Urobilinogen Normal (Normal)
[2019-09-27 13:42] LABS: ALB/GLOB Ratio 0.6 RATIO (0.9-2.4); AST(SGOT) 28 U/L (15-37); Alanine Aminotransfer ALT/SGPT 17 U/L (16-61); Albumin, Serum 2.7 g/dL (3.2-5.0); Alkaline Phosphatase 90 U/L (45-117); Anion Gap 9 (5-15); BUN 40 mg/dL (7-18); BUN/Creat Ratio 17.5 RATIO (10-20); Calcium,Total 8.6 mg/dL (8.5-10.1); Chloride 101 mmol/L (98-107); Creatinine, Serum 2.28 mg/dL (0.70-1.30); EST Glomerular Filtration Rate 29 mL/min (>60); Est Glom Filt Rate - Afr Amer 35 mL/min (>60); Estimated Creatinine Clearance 21.35 ml/min; Globulin 4.5 g/dL (2.2-4.2); Glucose 137 mg/dL (74-106); Protein, Total 7.2 g/dL (6.4-8.2); Sodium Level 136 mmol/L (136-145)
[2019-09-27 13:50] LABS: BNP,B-Type NATRIURETIC PEPTIDE 383.6 pg/mL (0-100)
[2019-09-27 13:51] LABS: Bacteria 1+ /hpf (None Seen); Hyaline Cast 0-5 SEEN /lpf (0-5); Squamous Epithelial Cells - UA 0-5 SEEN /hpf (0-5)
[2019-09-27] MEDS: Ipratropium/Albuterol Sulfate 3 ML AMPUL.NEB INHALATION (14:05)
--- NOTE | 2019-09-27 15:04 | ED.RN ---
PT OUT OF DEPARTMENT ON THIS CRUST SORTER OF CARE. PT GOING TO PCU. LASIX WAS NOT GIVEN. KOTA MACHINE TACK PULLER INFORMED OF LASIX NOT GIVEN.
--- NOTE | 2019-09-27 15:39 | HP.PCM_ITS ---
Problem List (1) (HFpEF) heart failure with preserved ejection fraction Status: Acute Qualifiers: Heart failure chronicity: acute Qualified Code(s): I50.31 - Acute diastolic (congestive) heart failure (2) Pleural effusion Status: Acute History of Present Illness Date of Admission: 09/27/19 Chief Complaint: dypsnea on exertion The patient is a 83 year old [facility] but over the past couple days has had increasing dyspnea on exertion. Presented to the emergency room where he had x- rays that showed a worsening pleural effusions. Patient received albuterol and put on oxygen in the emergency room. Patient denies ever having had a thoracentesis but the patient has clearly had thoracenteses before that were consistent with transudate of effusions. Most recent thoracentesis was from January 30 of this year. Really he recently undergo a left heart catheterization that showed normal coronaries and stated that his aortic stenosis is more moderate rather than severe as echocardiograms have commented on previously. [] Past Medical History Past Medical History (Chronic Problems): Chronic Problems (Last Reviewed 08/31/19 @ 14:05 by Janina Nunez) History of right and left heart catheterization (Chronic 09/25/19) Right Heart pressures - elevated; Pulmonary Hypertension Moderate LEFT MAIN: Angiographically normal ; LEFT ANTERIOR DESCENDING ARTERY: MID LAD: Mild luminal irregularities less than 30% ;CIRCUMFLEX ARTERY: Mild luminal irregularities less than 30% RIGHT CORONARY ARTERY: Mild luminal irregularities less than 30%; Aortic Valve Stenosis - moderate per R&LHC done 09/25/19 per OUMOU @ [facility]: medical management recommended. Placement of right tunnelled pleurex catheter (Chronic 02/21/19) for recurrent right pleural effusion per Dr. Tyrell Santizo on 02/21/2019 Valvular heart disease (Chronic) (HFpEF) heart failure with preserved ejection fraction (Chronic) Nonrheumatic mitral (valve) insufficiency (Chronic) Non-rheumatic tricuspid valve insufficiency (Chronic) Non-rheumatic aortic stenosis (Chronic) History of left heart catheterization (Chronic ~01/2014) 05/02/[address] Robertson [facility]; 01/29/[address] 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) Hypertension (Chronic) Chronic renal failure, stage 3 (moderate) (Chronic) History of anxiety disorder (Chronic) Generalized osteoarthritis (Chronic) History of gout (Chronic) Mild dementia (Chronic) Rheumatoid arthritis (Chronic) Diabetes mellitus, type II (Chronic) Generalized weakness (Chronic) History of prostate cancer (Chronic) Status post radiotherapy Anemia of chronic disease (Chronic) due to CRF and RA PAF (paroxysmal atrial fibrillation) (Chronic) Medical History: Medical History (Last Reviewed 09/27/19 @ 15:40 by Josue Obregon DO) Nonrheumatic mitral (valve) insufficiency (Chronic) I34.0 Non-rheumatic tricuspid valve insufficiency (Chronic) I36.1 Non-rheumatic aortic stenosis (Chronic) I35.0 Chronic diastolic (congestive) heart failure (Chronic) I50.32 History of pleural effusion (Chronic) Z87.09 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 (Chronic) 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) Z79.01 Hypertension (Chronic) I10 Chronic renal failure, stage 3 (moderate) (Chronic) N18.3 History of anxiety disorder (Chronic) Z86.59 Generalized osteoarthritis (Chronic) M15.9 History of gout (Chronic) Z87.39 Mild dementia (Chronic) F03.90 Rheumatoid arthritis (Chronic) M06.9 Diabetes mellitus, type II (Chronic) E11.9 History of prostate cancer (Chronic) Status post radiotherapy Anemia of chronic disease (Chronic) D63.8 due to CRF and RA PAF (paroxysmal atrial fibrillation) (Chronic) I48.0 Syncope and collapse R55 Allergies cimetidine HCl [From Tagamet] Allergy (Verified 09/27/19 12:28) Rash ciprofloxacin [From Cipro] Allergy (Verified 09/27/19 12:28) Rash amoxicillin trihydrate [From Augmentin] Adverse Reaction (Verified 09/27/19 12:28) Abd cramps/diarrhea cefdinir [From Omnicef] Adverse Reaction (Verified 09/27/19 12:28) Diarrhea indomethacin sodium [From Indocin] Adverse Reaction (Verified 09/27/19 12:28) Nausea memantine HCl [From Namenda] Adverse Reaction (Verified 09/27/19 12:28) dizziness potassium clavulanate [From Augmentin] Adverse Reaction (Verified 09/27/19 12:28) Abd cramps/diarrhea sitagliptin phosphate [From ] Adverse Reaction (Verified 09/27/19 12:28) Nausea Home Medications: Ambulatory Orders Medication Instructions Recorded Cholecalciferol (Vitamin D3) 1,000 unit PO DAILY 12/25/13 [Vitamin D3] Cyanocobalamin [Vitamin B12] 1,000 mcg PO DAILY@0800 11/17/14 Loratadine 10 mg PO DINNER PRN 03/15/17 magnesium oxide 400 mg (241.3 mg 400 mg PO DAILY 12/30/17 magnesium) tablet Ascorbic Acid [Vitamin C] 1,000 mg PO LUNCH 12/20/18 Galantamine HBr 16 mg PO DAILY 12/20/18 tamsulosin 0.4 mg capsule 0.4 mg PO DINNER 12/20/18 Calcium Carbonate [Calcium] 600 mg PO DAILY 01/26/19 Amiodarone HCl 200 mg PO DAILY 03/10/19 Finasteride [Proscar] 5 mg PO DINNER 04/17/19 Buspirone HCl 10 mg PO BID 06/24/19 Nitroglycerin 0.4 mg SL X1 PRN 06/24/19 Ferrous Sulfate 325 mg PO BID #60 tab 07/06/19 Pantoprazole Sodium [Protonix] 40 mg PO BID #60 tab 07/06/19 amlodipine 5 mg tablet 5 mg PO DAILY 08/31/19 Furosemide [Lasix] 20 mg PO BID 09/25/19 Carvedilol 6.25 mg PO BID 09/27/19 Dicyclomine HCl 10 mg PO DAILY 09/27/19 Surgical History: Surgical History (Last Reviewed 09/27/19 @ 15:41 by Josue Obregon DO) History of right and left heart catheterization (Chronic) Onset Date: 09/25/19 Z98.890 Right Heart pressures - elevated; Pulmonary Hypertension Moderate LEFT MAIN: Angiographically normal ; LEFT ANTERIOR DESCENDING ARTERY: MID LAD: Mild luminal irregularities less than 30% ;CIRCUMFLEX ARTERY: Mild luminal irregularities less than 30% RIGHT CORONARY ARTERY: Mild luminal irregularities less than 30%; Aortic Valve Stenosis - moderate per R&LHC done 09/25/19 per [facility]N @ [facility]: medical management recommended. Recurrent right pleural effusion (Acute) Onset Date: 02/15/19 J90 Placement of right tunneled pleural catheter (pleurex) with ultrasound guidance per Dr. Santizo 02/15/2019 History of left heart catheterization (Chronic) Onset Date: ~01/2014 Z98.890 05/02/[address] Robertson [facility]; 01/29/[address] Porter at [facility]: coronaries angiographically normal, pulmonary htn by RV eval, EF at that time was 45-50% History of bilateral inguinal hernia repair Z98.890, Z87.19 History of cholecystectomy Onset Date: ~1989 Z90.49 History of left knee replacement Z96.652 History of right shoulder replacement Z96.611 History of tonsillectomy Z90.89 Surgical History: cholecystectomy, total knee arthroplasty Psychiatric History: No pertinent psych hx Smoking Status: Never smoker - *Family History Maternal Family History: Family History (Last Reviewed 09/27/19 @ 15:42 by Josue Obregon DO) Father CAD (coronary artery disease) Myocardial infarction Brother Diabetes History Items: No pertinent history Paternal Family History: Family History (Last Reviewed 09/27/19 @ 15:42 by Josue Obregon DO) Father CAD (coronary artery disease) Myocardial infarction Brother Diabetes History Items: No pertinent history Review of Systems Constitutional: Denies: Chills, Fever, Weight Change Eyes: Denies: Blurred vision, Double vision HEENT: Denies: Head Aches, Sinus Congestion, Sinus Drainage Cardiovascular: Denies: Chest Pain, Palpitations Respiratory: Reports: Shortness of breath upon exertion. Denies: Cough, Shortness of breath at rest, Sputum production Gastrointestinal: Denies: Abdominal Pain, Nausea, Vomiting Genitourinary: Denies: Dysuria Musculoskeletal: Denies: Joint Pain, Joint Tenderness Skin: Denies: Rash, Wounds Neurological: Denies: Numbness, Tingling, Focal weakness Psychiatric: Denies: Anxiety, Depression Endocrine: Denies: Change in Body Habitus, Heat/ Cold Intolerance Hematologic/ Lymphatic: Denies: Easy Bruising, Easy Bleeding, Hx of blood clot Comment: All review systems are negative except for as mentioned above and in the HPI. VTE Information - Inpt Only VTE Present on Admission: No VTE Mechan Device Prophylaxis: None VTE Pharm Prophylaxis ordered?: Yes Patient Problems: Active and Suspected Problems (Last Reviewed 08/31/19 @ 14:05 by Janina Nunez) (HFpEF) heart failure with preserved ejection fraction (Acute) Pleural effusion (Acute) - Physical Exam Vitals/I&O's: Vital Signs Temp Pulse Resp BP Pulse Ox 36.9 C 59 L 24 H 136/65 H 92 09/27/19 15:16 09/27/19 15:21 09/27/19 15:30 09/27/19 15:16 09/27/19 15:16 Oxygen Flow Rate (L/min) 6 Oxygen Delivery Method Nasal Cannula Weight: 76.8 kg Body Mass Index (BMI) 28.2 Finger Stick Blood Glucose 128 General: Alert, Cooperative, No apparent distress, Well developed, Well nourished, - - No respiratory distress. No conversational dyspnea. HEENT: Atraumatic, PERRLA, EOMI, Normocephalic Oral: Moist Mucosa, No Gingival or Mucosal Lesions/ Ulcerations Neck: No Nodes, Thyroid Normal Size and Texture Lungs: - - Is in the bases. Diminished in the bases. Dullness to percussion in the bases. Cardiovascular: Regular rate, Regular Rhythm, Normal S1, Normal S2, No murmurs Abdomen: Bowel Sounds Present, Soft, Non Tender, Non-Distended Extremities: No edema, No Calf Tenderness Skin: No rashes, No breakdown Musculoskeletal: No Tenderness to Palpation of Joints or Extremities, Muscle Wasting Lymphatic: No Cervical, Supraclavicular, or Inguinal Adenopathy, Cervical Adenopathy Neurological: Deep Tendon Reflexes 2+/4 and Symmetrical, - - No clonus Psych/Mental Status: Normal Affect, Appropriate Laboratory Results 09/27/19 13:07: WBC 9.0, RBC 4.12 L, Hgb 10.9 L, Hct 35.3 L, MCV 85.7, MCH 26.5 L, MCHC 30.9 L, RDW Std Deviation 46.8 H, RDW Coeff of Juan Carlos 14.8 H, Plt Count 193, MPV 9.8, Immature Gran % (Auto) 0.900, Neut % (Auto) 82.4 H, Lymph % (Auto) 5.0 L, [place] % (Auto) 9.3, Eos % (Auto) 1.7, Baso % (Auto) 0.7, Absolute Neuts (auto) 7.4, Absolute Lymphs (auto) 0.45 L, Nucleated RBC % 0 09/27/19 13:07: Sodium 136, Potassium 5.0, Chloride 101, Carbon Dioxide 26.0, Anion Gap 9, BUN 40 H, Creatinine 2.28 H, Estim Creat Clear Calc 21.35, Est GFR (MDRD) Af Amer 35 L, Est GFR (MDRD) Non-Af 29 L, BUN/Creatinine Ratio 17.5, Glucose 137 H, Calcium 8.6, Total Bilirubin 0.70, AST 28, ALT 17, Alkaline Phosphatase 90, Troponin I < 0.015, Total Protein 7.2, Albumin 2.7 L, Globulin 4.5 H, Albumin/Globulin Ratio 0.6 L 09/27/19 13:07: B-Natriuretic Peptide 383.6 H 09/27/19 13:29: Urine Color Yellow, Urine Clarity Clear, Urine pH 5.0, Ur Specific [place] 1.015, Urine Protein Negative, Urine Glucose (UA) Normal, Urine Ketones Negative, Urine Occult Blood Negative, Urine Nitrite Negative, Urine Bilirubin Negative, Urine Urobilinogen Normal, Ur Leukocyte Esterase Negative, Urine RBC 0 SEEN, Urine WBC 0 SEEN, Ur Squamous Epith Cells 0-5 SEEN, Urine Bacteria 1+, Hyaline Casts 0-5 SEEN, Urine Mucus 0 SEEN X-ray reviewed and showed increasing pleural effusions, increased from September 18. Current Medications Amiodarone HCl (Cordarone) 200 mg PO DAILY DERICK Amlodipine Besylate (Norvasc) 5 mg PO DAILY DERICK Carvedilol (Coreg) 6.25 mg PO BID [facility] Cyanocobalamin (Vitamin B12) 1,000 mcg PO DAILY@0800 DERICK Dicyclomine HCl (Bentyl) 10 mg PO DAILY [facility] Ferrous Sulfate (Ferrous Sulfate) 325 mg PO BID DERICK Finasteride (Proscar) 5 mg PO DINNER DERICK Loratadine (Claritin) 10 mg PO DINNER PRN PRN Reason: ALLERGIES Nitroglycerin (Nitrostat) 0.4 mg SUBLINGUAL X1 PRN PRN Reason: chest pain Non-Formulary Medication (Ascorbic Acid [Vitamin C]) 1,000 mg PO LUNCH DERICK Non-Formulary Medication (Buspirone Hcl) 10 mg PO BID [facility] Non-Formulary Medication (Calcium Carbonate [Calcium]) 600 mg PO DAILY [facility] Non-Formulary Medication (Cholecalciferol (Vitamin D3) [Vitamin D3]) 1,000 unit PO DAILY DERICK Non-Formulary Medication (Galantamine Hbr) 16 mg PO DAILY [facility] Non-Formulary Medication (Magnesium Oxide [Magnesium]) 400 mg PO DAILY [facility] Pantoprazole Sodium (Protonix) 40 mg PO BID [facility] Tamsulosin HCl (Flomax) 0.4 mg PO DINNER [facility] Assessment/Plan All Active Problems (Last Reviewed 08/31/19 @ 14:05 by Janina Nunez) (HFpEF) heart failure with preserved ejection fraction (Acute) Pleural effusion (Acute) BRBPR (bright red blood per rectum) (Acute) Recurrent right pleural effusion (Acute 02/15/19) Community acquired bacterial pneumonia (Acute) Atrial fibrillation (Acute) Pleural effusion (Acute) Renal insufficiency (Acute) Pleural effusion (Acute) Chest pain (Resolved) Dehydration (Resolved) Hypomagnesemia (Resolved) 1. Acute heart failure with preserved ejection fraction * EF 65% from echocardiogram on September 15 * Complicated by the patient's underlying moderate aortic stenosis and pleural effusions * Patient will be on IV furosemide * Fluid restrict, daily weights 2. Pleural effusions * Previous testing has been consistent with transudate of effusions secondary to above * We will try to perform an ultrasound-guided thoracentesis. Given the previous transudate of nature of it, I do not feel that additional studies are necessary at this time. 3. Aortic stenosis * Based on the recent left heart catheterization on the * Deemed not a candidate for a TAVR at this time 4. Paroxysmal atrial fibrillation * Continue with amiodarone as well as carvedilol * Not on anticoagulation given his history of GI bleed 5. Chronic kidney disease stage IV * Monitor closely patient is being diuresed * Follow-up nephrology as outpatient 6. VTE prophylaxis: Moderate risk. Patient will be on enoxaparin 7. Advanced care planning: Patient wishes to be full CODE STATUS at this time. Code Visit Inpatient E&M: 31937 Init Hosp L3
[2019-09-27 16:06] LABS: International Normalized Ratio 1.3; Prothrombin Time (Protime)PT. 15.9 SECONDS (11.7-14.9)
[2019-09-27] MEDS: Furosemide 40 MG/4 ML Vial IV (17:44)
[2019-09-27] MEDS: Glucerna Shake 120 ML LIQUID 60 ML PO (17:44)
[2019-09-27] MEDS: 0.9% Saline Lock 10 ML Syringe IV (17:44)
[2019-09-27 22:46] LABS: Bedside Glucose 128 mg/dL (70-110)
[2019-09-28] VITALS (13 sets, daily range): BP systolic 101–154; BP diastolic 55–73; PULSE 60–78; RESP 16–20; TEMP 36.8–37.2; O2SAT 94–97
[2019-09-28] MEDS: Sodium Chloride 0.65% 1 SPRAY SPRAY.BTL 2 SPRAY NASAL (04:33)
[2019-09-28 05:34] LABS: Anion Gap 6 (5-15); BUN 42 mg/dL (7-18); BUN/Creat Ratio 17.8 RATIO (10-20); Calcium,Total 8.2 mg/dL (8.5-10.1); Chloride 101 mmol/L (98-107); Creatinine, Serum 2.36 mg/dL (0.70-1.30); EST Glomerular Filtration Rate 28 mL/min (>60); Est Glom Filt Rate - Afr Amer 34 mL/min (>60); Estimated Creatinine Clearance 19.86 ml/min; Glucose 129 mg/dL (74-106); Potassium 4.6 mmol/L (3.5-5.1); Sodium Level 136 mmol/L (136-145)
[2019-09-28 05:35] LABS: International Normalized Ratio 1.4; Partial Thromboplast Time 34.9 Seconds (24.1-36.2); Prothrombin Time (Protime)PT. 16.6 SECONDS (11.7-14.9)
--- NOTE | 2019-09-28 08:42 | PCM.PN.HOSP ---
Patient Problems: Active and Suspected Problems (Last Reviewed 09/27/19 @ 15:40 by Josue Obregon DO) (HFpEF) heart failure with preserved ejection fraction (Acute) Pleural effusion (Acute) Subjective: Feeling little bit better than when he came in, breathing a little bit easier. He did have a previous pleural effusion several months ago that was transudate of. Vitals/I&O's: Vital Signs Temp Pulse Resp BP Pulse Ox 98.4 F 70 18 148/63 H 95 09/28/19 04:20 09/28/19 07:00 09/28/19 04:20 09/28/19 04:20 09/28/19 08:05 Oxygen Flow Rate (L/min) 6 Oxygen Delivery Method Nasal Cannula Weight: 171 lb 11.841 oz Body Mass Index (BMI) 28.2 Finger Stick Blood Glucose 128 Intake and Output for Last 24 Hours 09/26/19 09/27/19 09/28/19 23:59 23:59 23:59 Intake Total 560 / 560 0 / 0 Output Total 575 / 575 200 / 200 Balance -15 / -15 -200 / -200 General: Alert, Oriented x3, Cooperative, No apparent distress HEENT: Atraumatic, PERRLA, EOMI, Normocephalic Oral: Moist Mucosa Neck: Supple, No JVD Lungs: No rhonchi, No wheeze, Diminished, Rales - The bilateral bases Cardiovascular: Regular rate, Regular Rhythm, Normal S1, Normal S2, No murmurs Abdomen: Soft, Non Tender, Non-Distended, No Hepato-splenomegaly Extremities: No edema, Capillary Refill Less than 3 Seconds Skin: No rashes, No breakdown Neurological: Neuro grossly intact, Sensory exam intact to light touch and pain Psych/Mental Status: Normal Affect, Appropriate Laboratory Results 09/27/19 13:07: WBC 9.0, RBC 4.12 L, Hgb 10.9 L, Hct 35.3 L, MCV 85.7, MCH 26.5 L, MCHC 30.9 L, RDW Std Deviation 46.8 H, RDW Coeff of Juan Carlos 14.8 H, Plt Count 193, MPV 9.8, Immature Gran % (Auto) 0.900, Neut % (Auto) 82.4 H, Lymph % (Auto) 5.0 L, [place] % (Auto) 9.3, Eos % (Auto) 1.7, Baso % (Auto) 0.7, Absolute Neuts (auto) 7.4, Absolute Lymphs (auto) 0.45 L, Nucleated RBC % 0 09/27/19 13:07: Sodium 136, Potassium 5.0, Chloride 101, Carbon Dioxide 26.0, Anion Gap 9, BUN 40 H, Creatinine 2.28 H, Estim Creat Clear Calc 21.35, Est GFR (MDRD) Af Amer 35 L, Est GFR (MDRD) Non-Af 29 L, BUN/Creatinine Ratio 17.5, Glucose 137 H, Calcium 8.6, Total Bilirubin 0.70, AST 28, ALT 17, Alkaline Phosphatase 90, Troponin I < 0.015, Total Protein 7.2, Albumin 2.7 L, Globulin 4.5 H, Albumin/Globulin Ratio 0.6 L 09/27/19 13:07: B-Natriuretic Peptide 383.6 H 09/27/19 13:07: PT 15.9 H, INR 1.3 09/27/19 13:29: Urine Color Yellow, Urine Clarity Clear, Urine pH 5.0, Ur Specific [place] 1.015, Urine Protein Negative, Urine Glucose (UA) Normal, Urine Ketones Negative, Urine Occult Blood Negative, Urine Nitrite Negative, Urine Bilirubin Negative, Urine Urobilinogen Normal, Ur Leukocyte Esterase Negative, Urine RBC 0 SEEN, Urine WBC 0 SEEN, Ur Squamous Epith Cells 0-5 SEEN, Urine Bacteria 1+, Hyaline Casts 0-5 SEEN, Urine Mucus 0 SEEN 09/27/19 22:26: POC Glucose 128 H 09/28/19 05:10: Sodium 136, Potassium 4.6, Chloride 101, Carbon Dioxide 29.0, Anion Gap 6, BUN 42 H, Creatinine 2.36 H, Estim Creat Clear Calc 19.86, Est GFR (MDRD) Af Amer 34 L, Est GFR (MDRD) Non-Af 28 L, BUN/Creatinine Ratio 17.8, Glucose 129 H, Calcium 8.2 L 09/28/19 05:10: PT 16.6 H, INR 1.4, APTT 34.9 Current Medications Acetaminophen (Tylenol) 650 mg PO Q6H PRN PRN PRN Reason: Pain Score 1-3/Temp > 100.7 F Dextrose (D50w Syringe) 0 gm IV X1 PRN; Protocol PRN Reason: Hypoglycemia Enoxaparin Sodium (Lovenox) 30 mg SC DAILY@1000 DERICK Furosemide (Lasix) 40 mg IV BIDLX DERICK Last Admin: 09/27/19 17:44 Dose: 40 mg Documented by: Glucagon () 1 mg IM .X1 PRN PRN Reason: Hypoglycemia Sodium Chloride () 250 mls @ 15 mls/hr IV .[id number] PRN PRN Reason: Saline Flush Nutritional Formula (Lactose Free) (Glucerna Shake) 60 ml PO 4X/DAY [facility] Last Admin: 09/27/19 21:49 Dose: Not Given Documented by: Ondansetron HCl (Zofran) 4 mg IV Q8H PRN PRN PRN Reason: NAUSEA/VOMITING Sodium Chloride () 10 - 40 ml IV UD PRN PRN Reason: SALINE FLUSH Last Admin: 09/27/19 17:44 Dose: 10 ml Documented by: Sodium Chloride ([place] Nasal [place]ia) 2 spray NASAL BID PRN PRN PRN Reason: NASAL DRYNESS Last Admin: 09/28/19 04:33 Dose: 2 spray Documented by: STROKE Vital Signs/Narrative: Vital Signs Pulse Pulse Ox 09/28/19 08:05 95 09/28/19 07:00 70 Medical Necessity - Tobacco Use Smoking Status: Never smoker Assessment/Plan All Active Problems (Last Reviewed 09/27/19 @ 15:40 by Josue Obregon DO) (HFpEF) heart failure with preserved ejection fraction (Acute) Pleural effusion (Acute) BRBPR (bright red blood per rectum) (Acute) Recurrent right pleural effusion (Acute 02/15/19) Community acquired bacterial pneumonia (Acute) Atrial fibrillation (Acute) Pleural effusion (Acute) Renal insufficiency (Acute) Pleural effusion (Acute) Chest pain (Resolved) Dehydration (Resolved) Hypomagnesemia (Resolved) 1. Acute on chronic diastolic heart failure with pleural effusion/aortic stenosis/paroxysmal A. fib/HTN -Not on any anticoagulation because of a history of GI bleeding -Continue with Coreg, Norvasc and amiodarone -He with IV Lasix -Restriction with daily weights -Plan for ultrasound-guided thoracentesis no fluid analysis since we know from previous it was transudate of -We will continue with nasal cannula since he was 92% on room air on admission 2. CKD IV/DM 2 -Baseline creatinine is between 2 and 2.4 -Current creatinine is 2.36 -He is on IV diuresis we will continue to monitor closely -We will continue with Accu-Cheks and monitor blood sugars 3. GERD -Stable -Continue with PPI 4. Dementia -On prior admissions he did not have any sundowning -Continue with galantamine 5. BPH -Stable -Continue with Flomax and finasteride DVT: Lovenox Code Visit Inpatient E&M: 10743 Subs Hosp L2
--- NOTE | 2019-09-28 09:29 | PCA ---
Tried to schedule follow up apt with Dr. Mcleod's office and they asked that the call and schedule du to there being no Wednesday apt available and that the office is aware that they are very particular about day, time, and who they see at the apt.
--- NOTE | 2019-09-28 09:40 | RAD_ITS ---
STUDY: X-RAY CHEST REASON FOR EXAM: Male, 83 years old. The patient is status post left thoracentesis. TECHNIQUE: AP inspiration and expiration views. COMPARISON: Comparison is made with prior study dated September 27, 2019. FINDINGS: The patient is status post left thoracentesis. There is no evidence of pneumothorax. Stable appearance of the right hemithorax. Calcific tendinitis of the left shoulder. RAD/Chest Insp/Exp 2 View IMPRESSION: Status post left thoracentesis. No evidence of pneumothorax. Electronically Signed: Justin Castro, at 10:29 EDT , Service support ,
[2019-09-28] MEDS: 0.9% Saline Lock 10 ML Syringe IV ×2 (09:51→17:12)
[2019-09-28] MEDS: Glucerna Shake 120 ML LIQUID 60 ML PO ×3 (09:51→17:12)
[2019-09-28] MEDS: Furosemide 40 MG/4 ML Vial IV ×2 (09:52→17:12)
[2019-09-28] MEDS: Acetaminophen 325 MG Tablet 650 MG PO (10:01)
--- NOTE | 2019-09-28 10:52 | CASEMGMT ---
Addendum entered by Casey Beasley 09/28/19 11:23: Pt was active with [facility] prior to admission. Original Note: RN CM Assessment Presentation: Heart failure with preserved ejection fraction Intro role of CM and purpose of RN CM assessment with pt. Pt appears sleepy, not able to elaborate on answers, short term memory issues noted during conversation. RN CM requested to call and pt is agreeable. Call to - intro role of CM to her. was able to provide information for assessment. Pt is generally independent, does own care, but is available to assist if needed. PCP: Dr. Bhargav Hill Specialists: Dr. Porter Preferred Pharmacy: [facility] Insurance: [employer] Prescription Benefit: yes LNOK: , Marbella Gay Living Arrangements: Lives in 1 1/2 story home with first floor set up. Per pt is generally independent, has not been using ambulatory DME. is able to assist with care needs at home if needed. Transportation: drives DME: cane, walker, cpap. Pt is on Oxygen now, no Home O2. If Home Oxygen is needed, [facility] (ph: [phone]; fx: [phone]) HHC: none past. If HHC is recommended, [facility] Patient DC goals: home DC PLAN: anticipate home with family support. PT/OT karel smithing [place] RN ACM
--- NOTE | 2019-09-28 11:43 | CASEMGMT ---
RN CM Assessment Presentation: Heart failure with preserved ejection fraction Intro role of CM and purpose of RN CM assessment with pt. Pt appears sleepy, not able to elaborate on answers, short term memory issues noted during conversation. RN CM requested to call and pt is agreeable. Call to - intro role of CM to her. was able to provide information for assessment. Pt is generally independent, does own care, but is available to assist if needed. -Current with [facility] PCP: Dr. Bhargav Hill Specialists: Dr. Porter, cardiology, Dr. Bermudez, Urology Preferred Pharmacy: [facility] Insurance: [employer] Prescription Benefit: yes LNOK: , Marbella Gay Living Arrangements: Lives in 1 1/2 story home with first floor set up and 2 steps into home. Per pt is generally independent, has not been using ambulatory DME. is able to assist with care needs at home if needed. Transportation: drives DME: cane, walker, cpap, nebulizer, raised toilet seat, grab bars, shower chair. Pt is on Oxygen in hospital, no Home O2. - If Home Oxygen is needed, [facility] (ph: [phone]; fx: [phone]). states no preference for DME company as long as is [facility] with insurance. HHC: Hx of [facility] in past. If HHC is recommended, [facility] and [facility] are [facility] Patient DC goals: home DC PLAN: anticipate home with family support. PT/OT evals pending [place] RN ACM
--- NOTE | 2019-09-28 11:43 | CASEMGMT ---
LW/Medical POA/Durable POA all in echart. Pt's Marbella Gay is pt's medical POA. SW printed all forms and placed in paper chart to be scanned into the summary tab of the echart at discharge. JADIEL Vargas
--- NOTE | 2019-09-28 14:05 | CHAPLAIN ---
Type of Pastoral Visit _x__ Initial Visit ___ Follow-up Visit ___ On-call Visit ___ General Patient Visit ___ Spiritual Assessment ___ Family Conference ___ Bereavement ___ Rapid Response ___ Code Blue ___ Other (describe below) Pastoral Care Referral From _x__ Patient ___ Family ___ Nurse ___ Physician ___ Automotive Parts Person ___ Loss Prevention Research Engineer ___ Other (describe below) Sacrament/Intervention _x__ Active listening ___ Anointing ___ Amish ___ Bereavement ___ Communion ___ Leida exploration ___ _x__ Life review _x__ Prayer ___ Reconciliation ___ Sacrament of Sick _x__ Supportive presence ___ Wedding ___ Other (describe below) Pastoral Comments
--- NOTE | 2019-09-28 15:51 | US_ITS ---
PROCEDURE: ULTRASOUND GUIDED THORACENTESIS. DATE: September 28, 2019. INDICATION: Male, 83 years old. Left pleural effusion PHYSICIAN: Justin Castro M.D. PROCEDURE: The risks, benefits, and alternatives to the procedure were explained to the patient. The specific risks of bleeding, infection, and pneumothorax requiring chest tube insertion were discussed and accepted. Written informed consent was obtained. Ultrasonographic evaluation of the left lower pleural space was carried out. An adequate pocket was identified. The patient was placed in the sitting, upright position. The overlying skin was prepped and draped in sterile fashion. 1% lidocaine was administered subcutaneously for local anesthesia. Under ultrasound guidance, a 5 Tamazight thoracentesis needle/catheter system was advanced into the left posterior lower pleural fluid collection. Approximately 1850 mL of crescencio-colored fluid was drained. The catheter was removed, and a sterile dressing was applied. The patient tolerated the procedure well. A chest x-ray was ordered. US/Thoracentesis W US IMPRESSION: Ultrasound-guided left thoracentesis. Electronically Signed: Justin Castro, at 10:30 EDT , Service support ,
[2019-09-29] VITALS (12 sets, daily range): BP systolic 101–128; BP diastolic 47–68; PULSE 62–79; RESP 16–18; TEMP 36.6–37.5; O2SAT 93–100
[2019-09-29 06:54] LABS: Anion Gap 7 (5-15); BUN 41 mg/dL (7-18); BUN/Creat Ratio 19.8 RATIO (10-20); Calcium,Total 8.4 mg/dL (8.5-10.1); Chloride 102 mmol/L (98-107); Creatinine, Serum 2.07 mg/dL (0.70-1.30); EST Glomerular Filtration Rate 33 mL/min (>60); Est Glom Filt Rate - Afr Amer 40 mL/min (>60); Estimated Creatinine Clearance 22.64 ml/min; Glucose 104 mg/dL (74-106); Sodium Level 137 mmol/L (136-145)
[2019-09-29] MEDS: Enoxaparin 30 MG/0.3 ML Syringe SC (08:09)
[2019-09-29] MEDS: Furosemide 40 MG/4 ML Vial IV ×2 (08:09→17:20)
[2019-09-29] MEDS: Glucerna Shake 120 ML LIQUID 60 ML PO ×3 (08:12→17:20)
--- NOTE | 2019-09-29 14:59 | EKG12_ITS ---
Test Reason : CP Blood Pressure : / mmHG Vent. Rate : 064 BPM Atrial Rate : 214 BPM P-R Int : 156 ms QRS Dur : 110 ms QT Int : 422 ms P-R-T Axes : 030 -19 087 degrees QTc Int : 435 ms Sinus vs. Ectopic Atrial Rhythm Nonspecific T wave abnormality Abnormal ECG Confirmed by ROSEMARIE PEREZ, ABBIE ([id number]), editor map KARMA SAMPSON ([id number]) on 10/04/2019 11:24:13 AM Referred By: Josue Obregon Confirmed By:ABBIE HOUSTON MD
--- NOTE | 2019-09-29 15:16 | CCN.REFER ---
Therapy is recommending addl skilled therapy at this time. This RN CM to room and pt is agreeable to [facility] at this time and states would like [facility] at this time. Pt does seem slightly confused at this time so this RN CM placed call to pt's , Marbella, to verify HHC and to advise that pt has home oxygen paperwork set up, if needed, voices understanding. is agreeable to [facility] and states that pt has had in the past. does state concerns about pt 'feeling sick' and has questions regarding same. She states that pt is not eating much and 'c/o feeling sick' but can't really describe why. states that she will be here at [address] Obregon aware of same so that he can speak with her at that time, voices understanding. Call to Blanca at [facility] and she states they have had pt in the past and can take him for RN, PT/OT at this time. Green sheet on chart. [place] [facility]
[2019-09-29] MEDS: 0.9% Saline Lock 10 ML Syringe IV (17:20)
--- NOTE | 2019-09-29 18:59 | PCM.PN.HOSP ---
Patient Problems: Active and Suspected Problems (Last Reviewed 09/27/19 @ 15:40 by Josue Obregon DO) (HFpEF) heart failure with preserved ejection fraction (Acute) Pleural effusion (Acute) Subjective: States that he is breathing easier today, but he is a little bit more sleepy than he was yesterday. Vitals/I&O's: Vital Signs Temp Pulse Resp BP Pulse Ox 98.7 F 64 18 118/51 L 96 09/29/19 14:00 09/29/19 15:10 09/29/19 14:00 09/29/19 14:00 09/29/19 14:00 Oxygen Flow Rate (L/min) [5] 6 Oxygen Flow Rate (L/min) [4] 6 Oxygen Flow Rate (L/min) [3] 6 Oxygen Flow Rate (L/min) [2] 6 Oxygen Flow Rate (L/min) [1 ( 6 Initial Baseline)] Oxygen Flow Rate (L/min) 2 Oxygen Delivery Method [5] Nasal Cannula Oxygen Delivery Method [4] Nasal Cannula Oxygen Delivery Method [3] Nasal Cannula Oxygen Delivery Method [2] Nasal Cannula Oxygen Delivery Method [1 ( Nasal Cannula Initial Baseline)] Oxygen Delivery Method Nasal Cannula Weight: 165 lb 12.602 oz Body Mass Index (BMI) 28.2 Finger Stick Blood Glucose 128 Intake and Output for Last 24 Hours 09/27/19 09/28/19 09/29/19 23:59 23:59 23:59 Intake Total 560 / 560 970 / 1090 780 / 780 Output Total 575 / 575 2110 / 2635 525 / 525 Balance -15 / -15 -1140 / -1545 255 / 255 General: Alert, Oriented x3, Cooperative, No apparent distress HEENT: Atraumatic, PERRLA, EOMI, Normocephalic Oral: Moist Mucosa Neck: Supple, No JVD Lungs: No rhonchi, No wheeze, Diminished though more open on the right than on admission Cardiovascular: Regular rate, Regular Rhythm, Normal S1, Normal S2, No murmurs Abdomen: Soft, Non Tender, Non-Distended, No Hepato-splenomegaly Extremities: No edema, Capillary Refill Less than 3 Seconds Skin: No rashes, No breakdown Neurological: Neuro grossly intact, Sensory exam intact to light touch and pain Psych/Mental Status: Normal Affect, Appropriate Laboratory Results 09/29/19 06:10: Sodium 137, Potassium 4.0, Chloride 102, Carbon Dioxide 28.0, Anion Gap 7, BUN 41 H, Creatinine 2.07 H, Estim Creat Clear Calc 22.64, Est GFR (MDRD) Af Amer 40 L, Est GFR (MDRD) Non-Af 33 L, BUN/Creatinine Ratio 19.8, Glucose 104, Calcium 8.4 L Current Medications Acetaminophen (Tylenol) 650 mg PO Q6H PRN PRN PRN Reason: Pain Score 1-3/Temp > 100.7 F Last Admin: 09/28/19 10:01 Dose: 650 mg Documented by: Dextrose (D50w Syringe) 0 gm IV X1 PRN; Protocol PRN Reason: Hypoglycemia Enoxaparin Sodium (Lovenox) 30 mg SC DAILY@1000 [facility] Last Admin: 09/29/19 08:09 Dose: 30 mg Documented by: Furosemide (Lasix) 40 mg IV BIDLX [facility] Last Admin: 09/29/19 17:20 Dose: 40 mg Documented by: Glucagon () 1 mg IM .X1 PRN PRN Reason: Hypoglycemia Sodium Chloride () 250 mls @ 15 mls/hr IV .[id number] PRN PRN Reason: Saline Flush Nutritional Formula (Lactose Free) (Glucerna Shake) 60 ml PO 4X/DAY [facility] Last Admin: 09/29/19 17:20 Dose: 60 ml Documented by: Ondansetron HCl (Zofran) 4 mg IV Q8H PRN PRN PRN Reason: NAUSEA/VOMITING Sodium Chloride () 10 - 40 ml IV UD PRN PRN Reason: SALINE FLUSH Last Admin: 09/29/19 17:20 Dose: 10 ml Documented by: Sodium Chloride ([place] Nasal [place]) 2 spray NASAL BID PRN PRN PRN Reason: NASAL DRYNESS Last Admin: 09/28/19 04:33 Dose: 2 spray Documented by: STROKE Vital Signs/Narrative: Vital Signs Pulse 09/29/19 15:10 64 Medical Necessity - Tobacco Use Smoking Status: Never smoker Assessment/Plan All Active Problems (Last Reviewed 09/27/19 @ 15:40 by Josue Obregon DO) (HFpEF) heart failure with preserved ejection fraction (Acute) Pleural effusion (Acute) BRBPR (bright red blood per rectum) (Acute) Recurrent right pleural effusion (Acute 02/15/19) Community acquired bacterial pneumonia (Acute) Atrial fibrillation (Acute) Pleural effusion (Acute) Renal insufficiency (Acute) Pleural effusion (Acute) Chest pain (Resolved) Dehydration (Resolved) Hypomagnesemia (Resolved) 1. Acute on chronic diastolic heart failure with pleural effusion/aortic stenosis/paroxysmal A. fib/HTN -Not on any anticoagulation because of a history of GI bleeding -Continue with Coreg, Norvasc and amiodarone -Continue with IV Lasix BID and will follow renal function -Fluid Restriction with daily weights ->1800 cc out with thoracentesis -On 2 L NC but will continue to encourage ambulation and ISS 2. CKD IV/DM 2 -Baseline creatinine is between 2 and 2.4 -Current creatinine is 2.07 -He is on IV diuresis we will continue to monitor closely -We will continue with Accu-Cheks and monitor blood sugars 3. GERD -Stable -Continue with PPI 4. Dementia -On prior admissions he did not have any sundowning -Continue with galantamine 5. BPH -Stable -Continue with Flomax and finasteride DVT: Lovenox Code Visit Inpatient E&M: 92031 Subs Hosp L2
[2019-09-30 02:55] VITALS: BP 110/56; PULSE 65; RESP 16; TEMP 36.6; O2SAT 95
[2019-09-30 03:03] VITALS: PULSE 68
[2019-09-30 06:07] LABS: Absolute Neutrophil Count 4.2 X10^3/uL (2.0-7.7); Basophil# 0.07 X10^3/uL; Basophil% 1.2 % (0-1); Eosinophil# 0.27 X10^3/uL; Eosinophils% 4.7 % (0-5); Hematocrit 37.3 % (40-54); Hemoglobin 11.5 g/dL (13.0-16.5); Lymphocyte % 8.7 % (19-41); Mean Corp Hgb Conc 30.8 g/dL (32-36); Mean Corpuscular Hgb 26.3 pg (27.0-32.0); Mean Corpuscular Volume 85.2 fL (80-94); Mean Platelet Vol. 9.6 fl (6.2-12.0); Monocyte# 0.65 X10^3/uL; Monocyte% 11.4 % (0-10); NRBC Flagged by Analyzer 0 % (0-5); Neutrophil # 4.19 X10^3/uL (2.7-7.7); Neutrophil % 73.3 % (47-70); POSITIVE DIFFERENTIAL YES; Platelet Count 188 K/mm3 (150-450); RBC Distribution Width CV 14.7 % (11.6-14.6); RBC Distribution Width SD 45.9 fl (35.1-43.9); Red Blood Count 4.38 M/mm3 (4.6-6.2); White Blood Count 5.7 K/mm3 (4.4-11.0)
[2019-09-30 06:15] LABS: Differential Indicated SCAN CRITERIA MET
[2019-09-30 06:31] LABS: Anion Gap 9 (5-15); BUN 32 mg/dL (7-18); BUN/Creat Ratio 18.6 RATIO (10-20); Calcium,Total 8.6 mg/dL (8.5-10.1); Chloride 101 mmol/L (98-107); Creatinine, Serum 1.72 mg/dL (0.70-1.30); EST Glomerular Filtration Rate 41 mL/min (>60); Est Glom Filt Rate - Afr Amer 49 mL/min (>60); Estimated Creatinine Clearance 27.25 ml/min; Glucose 108 mg/dL (74-106); Potassium 3.7 mmol/L (3.5-5.1); Sodium Level 139 mmol/L (136-145)
[2019-09-30 07:00] VITALS: PULSE 63
[2019-09-30 08:01] VITALS: O2SAT 82; O2SAT 92; O2SAT 93
[2019-09-30 08:34] VITALS: BP 106/49; PULSE 69; RESP 16; TEMP 36.4; O2SAT 97
[2019-09-30] MEDS: Enoxaparin 30 MG/0.3 ML Syringe SC (10:29)
[2019-09-30] MEDS: Furosemide 40 MG/4 ML Vial IV (10:30)
[2019-09-30] MEDS: 0.9% Saline Lock 10 ML Syringe IV (10:30)
[2019-09-30] MEDS: Glucerna Shake 120 ML LIQUID 60 ML PO (10:34)
--- NOTE | 2019-09-30 10:48 | DCINST_ITS ---
- Discharge Diagnoses Current Active Problems: Current Active and Chronic Problems (Last Reviewed 09/27/19 @ 15:40 by Josue Obregon DO) (HFpEF) heart failure with preserved ejection fraction (Acute) Pleural effusion (Acute) Chronic diastolic (congestive) heart failure (Chronic) You will use the following diet at home:: Cardiac Your food should be the consistency of: Regular Your liquids should be the consistency of: Regular/Thin Discharge Activity: Return to Normal Activity Call your doctor if you observe: Fever of 101 or Higher, Shortness of breath, Dizziness, Fainting spells, Swelling in the ankles, Chest pain, Increased palpitations (irregular heartbeat) Allergies/Adverse Reactions: Allergies cimetidine HCl [From Tagamet] Allergy (Verified 09/27/19 12:28) Rash ciprofloxacin [From Cipro] Allergy (Verified 09/27/19 12:28) Rash amoxicillin trihydrate [From Augmentin] Adverse Reaction (Verified 09/27/19 12:28) Abd cramps/diarrhea cefdinir [From Omnicef] Adverse Reaction (Verified 09/27/19 12:28) Diarrhea indomethacin sodium [From Indocin] Adverse Reaction (Verified 09/27/19 12:28) Nausea memantine HCl [From Namenda] Adverse Reaction (Verified 09/27/19 12:28) dizziness potassium clavulanate [From Augmentin] Adverse Reaction (Verified 09/27/19 12:28) Abd cramps/diarrhea sitagliptin phosphate [From Januvia] Adverse Reaction (Verified 09/27/19 12:28) Nausea Medications to take at Discharge Cholecalciferol (Vitamin D3) [Vitamin D3] 1,000 unit PO DAILY 12/25/13 Cyanocobalamin [Vitamin B12] 1,000 mcg PO DAILY@0800 11/17/14 Loratadine 10 mg PO DINNER PRN 03/15/17 magnesium oxide 400 mg (241.3 mg magnesium) tablet 400 mg PO DAILY 12/30/17 Ascorbic Acid [Vitamin C] 1,000 mg PO LUNCH 12/20/18 Galantamine HBr 16 mg PO DAILY 12/20/18 tamsulosin 0.4 mg capsule 0.4 mg PO DINNER 12/20/18 Calcium Carbonate [Calcium] 600 mg PO DAILY 01/26/19 Amiodarone HCl 200 mg PO DAILY 03/10/19 Finasteride [Proscar] 5 mg PO DINNER 04/17/19 Buspirone HCl 10 mg PO BID 06/24/19 Nitroglycerin 0.4 mg SL X1 PRN 06/24/19 Ferrous Sulfate 325 mg PO BID #60 tab 07/06/19 Pantoprazole Sodium [Protonix] 40 mg PO BID #60 tab 07/06/19 amlodipine 5 mg tablet 5 mg PO DAILY 08/31/19 Furosemide [Lasix] 20 mg PO BID 09/25/19 Carvedilol 6.25 mg PO BID 09/27/19 Dicyclomine HCl 10 mg PO DAILY 09/27/19 Primary Care Physician: Bhargav Mcleod MD [Primary Care Provider] - Please follow up with your Primary Care Physician in: 3-5 days Test Results: Test results from this visit will be discussed in further detail at your follow- up appointment, if applicable. Please Follow Up With: Bhargav Mcleod MD
--- NOTE | 2019-09-30 10:53 | PCM.DC.SUM ---
Discharge Date and Diagnosis - Problem List Patient Problems: Active and Suspected Problems (Last Reviewed 09/27/19 @ 15:40 by Josue Obregon DO) (HFpEF) heart failure with preserved ejection fraction (Acute) Pleural effusion (Acute) Date of Admission: 09/27/19 Date of Discharge: 09/30/19 - Primary Discharge Diagnosis Active and Suspected Problems (Last Reviewed 09/27/19 @ 15:40 by Josue Obregon DO) (HFpEF) heart failure with preserved ejection fraction (Acute) Pleural effusion (Acute) - Secondary Discharge Diagnosis Chronic Problems (Last Reviewed 09/27/19 @ 15:40 by Josue Obregon DO) History of right and left heart catheterization (Chronic 09/25/19) Right Heart pressures - elevated; Pulmonary Hypertension Moderate LEFT MAIN: Angiographically normal ; LEFT ANTERIOR DESCENDING ARTERY: MID LAD: Mild luminal irregularities less than 30% ;CIRCUMFLEX ARTERY: Mild luminal irregularities less than 30% RIGHT CORONARY ARTERY: Mild luminal irregularities less than 30%; Aortic Valve Stenosis - moderate per R&LHC done 09/25/19 per OUMOU @ [facility]: medical management recommended. Placement of right tunnelled pleurex catheter (Chronic 02/21/19) for recurrent right pleural effusion per Dr. Tyrell Santizo on 02/21/2019 Valvular heart disease (Chronic) (HFpEF) heart failure with preserved ejection fraction (Chronic) Nonrheumatic mitral (valve) insufficiency (Chronic) Non-rheumatic tricuspid valve insufficiency (Chronic) Non-rheumatic aortic stenosis (Chronic) History of left heart catheterization (Chronic ~01/2014) 05/02/[address] Robertson [facility]; 01/29/[address] 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) Hypertension (Chronic) Chronic renal failure, stage 3 (moderate) (Chronic) History of anxiety disorder (Chronic) Generalized osteoarthritis (Chronic) History of gout (Chronic) Mild dementia (Chronic) Rheumatoid arthritis (Chronic) Diabetes mellitus, type II (Chronic) Generalized weakness (Chronic) History of prostate cancer (Chronic) Status post radiotherapy Anemia of chronic disease (Chronic) due to CRF and RA PAF (paroxysmal atrial fibrillation) (Chronic) Hospital Course and Treatment Imaging Results: CXR: IMPRESSION: Progressive increase in the bilateral pleural effusions with underlying infiltration and/or atelectasis is worse on the right side. Consults: None Operations: None Procedures: None Summary of Care Provided: Per HPI: The patient is a 83 year old health but over the past couple days has had increasing dyspnea on exertion. Presented to the emergency room where he had x-rays that showed a worsening pleural effusions. Patient received albuterol and put on oxygen in the emergency room. Patient denies ever having had a thoracentesis but the patient has clearly had thoracenteses before that were consistent with transudate of effusions. Most recent thoracentesis was from January 30 of this year. Really he recently undergo a left heart catheterization that showed normal coronaries and stated that his aortic stenosis is more moderate rather than severe as echocardiograms have commented on previously. Hospital Course: 1. Acute on chronic diastolic heart failure with bilateral pleural effusions/moderate aortic stenosis/paroxysmal A. fib/BNP-42-azzt-old male who had his pleural effusions drained with thoracentesis back in January of this year, at that time fluid studies were performed that demonstrated that it was a transudate of effusion. He had a repeat thoracentesis this time on the left and had more than 1800 cc taken out. He immediately started breathing better and he was also started on 40 mg of IV Lasix twice daily. His renal function significantly improved by the day of discharge to 1.72, his baseline appears to be between 2 and 2.4. He is feeling much better today and seems to be breathing much easier today though he is still requiring some oxygen via nasal cannula. Home oxygen will be set up for him as well as home health for rehab. He is to continue with his home p.o. Lasix which is 20 mg twice daily, as well as all of his other home medications. He is to see his primary care doc as an outpatient in 3 to 5 days. Given how often these recur he may need to have fairly regular outpatient draining or increase his Lasix and adjust his medications to be able to tolerate from a blood pressure standpoint. I discussed the discharge plan with both him and his , they expressed understanding to the risks and benefits of going home and the need to follow-up with his primary care doctor. They are also okay with home health care and going home on oxygen. 2. CKD 4-Baseline creatinine is between 2 and 2.4, he is received 40 mg of IV Lasix twice daily and his creatinine has improved to 1.72 on the day of discharge. He can follow-up with his primary care doctor as an outpatient, but this may demonstrate that he can tolerate a higher dose of Lasix and potentially decrease his other blood pressure medications to allow for improved diuresis. 3. his other medical diagnoses were evaluated and his home medications were continued where appropriate Patient Problems: Active and Suspected Problems (Last Reviewed 09/27/19 @ 15:40 by Josue Obregon DO) (HFpEF) heart failure with preserved ejection fraction (Acute) Pleural effusion (Acute) - Physical Exam Vitals/I&O's: Vital Signs Temp Pulse Resp BP Pulse Ox 97.5 F L 69 16 106/49 L 97 09/30/19 08:34 09/30/19 08:34 09/30/19 08:34 09/30/19 08:34 09/30/19 08:34 Oxygen Flow Rate (L/min) [5] 6 Oxygen Flow Rate (L/min) [4] 6 Oxygen Flow Rate (L/min) [3] 6 Oxygen Flow Rate (L/min) [2] 6 Oxygen Flow Rate (L/min) [1 ( 6 Initial Baseline)] Oxygen Flow Rate (L/min) [ 4 AMBULATION with Oxygen] Oxygen Flow Rate (L/min) 2 Oxygen Delivery Method [5] Nasal Cannula Oxygen Delivery Method [4] Nasal Cannula Oxygen Delivery Method [3] Nasal Cannula Oxygen Delivery Method [2] Nasal Cannula Oxygen Delivery Method [1 ( Nasal Cannula Initial Baseline)] Oxygen Delivery Method Nasal Cannula Weight: 165 lb 5.547 oz Body Mass Index (BMI) 28.2 Finger Stick Blood Glucose 128 Intake and Output for Last 24 Hours 09/28/19 09/29/19 09/30/19 23:59 23:59 23:59 Intake Total 970 / 1090 780 / 780 Output Total 2110 / 2635 950 / 950 Balance -1140 / -1545 -170 / -170 General: Alert, Oriented x3, Cooperative, No apparent distress HEENT: Atraumatic, PERRLA, EOMI, Normocephalic Oral: Moist Mucosa Neck: Supple, No JVD Lungs: Clear to auscultation bilaterally, no rhonchi, No wheeze, Diminished though improved Cardiovascular: Regular rate, Regular Rhythm, Normal S1, Normal S2, No murmurs Abdomen: Soft, Non Tender, Non-Distended, No Hepato-splenomegaly Extremities: No edema, Capillary Refill Less than 3 Seconds Skin: No rashes, No breakdown Neurological: Neuro grossly intact, Sensory exam intact to light touch and pain Psych/Mental Status: Normal Affect, Appropriate Laboratory Results 09/30/19 05:39: WBC 5.7, RBC 4.38 L, Hgb 11.5 L, Hct 37.3 L, MCV 85.2, MCH 26.3 L, MCHC 30.8 L, RDW Std Deviation 45.9 H, RDW Coeff of Juan Carlos 14.7 H, Plt Count 188, MPV 9.6, Immature Gran % (Auto) 0.700, Neut % (Auto) 73.3 H, Lymph % (Auto) 8.7 L, Stanton % (Auto) 11.4 H, Eos % (Auto) 4.7, Baso % (Auto) 1.2 H, Absolute Neuts (auto) 4.2, Absolute Lymphs (auto) 0.50 L, Nucleated RBC % 0, Differential Comment 09/30/19 05:39: Sodium 139, Potassium 3.7, Chloride 101, Carbon Dioxide 29.0, Anion Gap 9, BUN 32 H, Creatinine 1.72 H, Estim Creat Clear Calc 27.25, Est GFR (MDRD) Af Amer 49 L, Est GFR (MDRD) Non-Af 41 L, BUN/Creatinine Ratio 18.6, Glucose 108 H, Calcium 8.6 Current Medications Acetaminophen (Tylenol) 650 mg PO Q6H PRN PRN PRN Reason: Pain Score 1-3/Temp > 100.7 F Last Admin: 09/28/19 10:01 Dose: 650 mg Documented by: Dextrose (D50w Syringe) 0 gm IV X1 PRN; Protocol PRN Reason: Hypoglycemia Enoxaparin Sodium (Lovenox) 30 mg SC DAILY@1000 [facility] Last Admin: 09/30/19 10:29 Dose: 30 mg Documented by: Furosemide (Lasix) 40 mg IV BIDLX [facility] Last Admin: 09/30/19 10:30 Dose: 40 mg Documented by: Glucagon () 1 mg IM .X1 PRN PRN Reason: Hypoglycemia Sodium Chloride () 250 mls @ 15 mls/hr IV .[id number] PRN PRN Reason: Saline Flush Nutritional Formula (Lactose Free) (Glucerna Shake) 60 ml PO 4X/DAY [facility] Last Admin: 09/30/19 10:34 Dose: 60 ml Documented by: Ondansetron HCl (Zofran) 4 mg IV Q8H PRN PRN PRN Reason: NAUSEA/VOMITING Sodium Chloride () 10 - 40 ml IV UD PRN PRN Reason: SALINE FLUSH Last Admin: 09/30/19 10:30 Dose: 10 ml Documented by: Sodium Chloride ([place] Nasal [place]) 2 spray NASAL BID PRN PRN PRN Reason: NASAL DRYNESS Last Admin: 09/28/19 04:33 Dose: 2 spray Documented by: Discharge Activity: Return to Normal Activity Call your doctor if you observe: Fever of 101 or Higher, Shortness of breath, Dizziness, Fainting spells, Swelling in the ankles, Chest pain, Increased palpitations (irregular heartbeat) Home Medications: Medications to take at Discharge Cholecalciferol (Vitamin D3) [Vitamin D3] 1,000 unit PO DAILY 12/25/13 Cyanocobalamin [Vitamin B12] 1,000 mcg PO DAILY@0800 11/17/14 Loratadine 10 mg PO DINNER PRN 03/15/17 magnesium oxide 400 mg (241.3 mg magnesium) tablet 400 mg PO DAILY 12/30/17 Ascorbic Acid [Vitamin C] 1,000 mg PO LUNCH 12/20/18 Galantamine HBr 16 mg PO DAILY 12/20/18 tamsulosin 0.4 mg capsule 0.4 mg PO DINNER 12/20/18 Calcium Carbonate [Calcium] 600 mg PO DAILY 01/26/19 Amiodarone HCl 200 mg PO DAILY 03/10/19 Finasteride [Proscar] 5 mg PO DINNER 04/17/19 Buspirone HCl 10 mg PO BID 06/24/19 Nitroglycerin 0.4 mg SL X1 PRN 06/24/19 Ferrous Sulfate 325 mg PO BID #60 tab 07/06/19 Pantoprazole Sodium [Protonix] 40 mg PO BID #60 tab 07/06/19 amlodipine 5 mg tablet 5 mg PO DAILY 08/31/19 Furosemide [Lasix] 20 mg PO BID 09/25/19 Carvedilol 6.25 mg PO BID 09/27/19 Dicyclomine HCl 10 mg PO DAILY 09/27/19 Primary Care Physician: Bhargav Mcleod MD [Primary Care Provider] - Please follow up with your Primary Care Physician in: 3-5 days Please Follow Up With: Bhargav Mcleod MD Disposition: Home with Home Health Minutes spent on discharge:: 35 Patient Condition:: Stable Medical Necessity - Tobacco Use Smoking Status: Never smoker Meaningful Use Info Meaningful Use Diagnoses (Choose all that apply): None applicable Code Visit Inpatient E&M: 72369 Disch Hosp
--- NOTE | 2019-09-30 10:59 | PCA ---
Addendum entered by Luz Elena Cloud 09/30/19 11:00: Spoke with on-call nurse Belkis and notified her of patient being D/C. Original Note: D/C paperwork faxed to [facility].
--- NOTE | 2019-10-02 15:38 | CASEMGMT ---
[facility]ANG [facility] DC PHONE CALL DC DATE: 09/30/19 DC Disposition: Home Diagnosis on Discharge: Heart Failure LACE/STRATA: 13/03 Attempted call x 2 to phone. First attempt could not hear CM. Returned call- no answer. Lore DIAZN RN AC
== END 2019-09-30 13:26 | disposition home health service (06) | DRG 291 ==
LOC: ED 12:58 → PCU 14:57
PROVIDERS: Radiology Diagnostic Radiology; Emergency Provider Emergency Medicine; Family Provider Family Medicine; PCP Family Medicine; Visit Provider Family Medicine
DX: I13.0 Hypertensive heart and chronic kidney disease with heart failure and stage 1 through stage 4 chronic kidney disease, or unspecified chronic kidney disease (principal); I50.33 Acute on chronic diastolic (congestive) heart failure; J90 Pleural effusion, not elsewhere classified; N18.4 Chronic kidney disease, stage 4 (severe); I24.0 Acute coronary thrombosis not resulting in myocardial infarction; E11.22 Type 2 diabetes mellitus with diabetic chronic kidney disease; I35.0 Nonrheumatic aortic (valve) stenosis; I36.1 Nonrheumatic tricuspid (valve) insufficiency; I27.29 Other secondary pulmonary hypertension; F41.9 Anxiety disorder, unspecified; M15.9 Polyosteoarthritis, unspecified; F03.90 Unspecified dementia, unspecified severity, without behavioral disturbance, psychotic disturbance, mood disturbance, and anxiety; Z85.46 Personal history of malignant neoplasm of prostate; D63.1 Anemia in chronic kidney disease; I48.0 Paroxysmal atrial fibrillation; M06.9 Rheumatoid arthritis, unspecified; Z79.899 Other long term (current) drug therapy; K21.9 Gastro-esophageal reflux disease without esophagitis; N40.0 Benign prostatic hyperplasia without lower urinary tract symptoms; I25.10 Atherosclerotic heart disease of native coronary artery without angina pectoris; R06.00 Dyspnea, unspecified; E78.5 Hyperlipidemia, unspecified; M10.9 Gout, unspecified; Z79.84 Long term (current) use of oral hypoglycemic drugs; Z79.01 Long term (current) use of anticoagulants
CPT/HCPCS: 32555; 36415; 71046; 80048; 80053; 81001; 82803; 82962; 83880; 84484; 85025; 85610; 85730; 93005; 93456; 94640; 97162; 97166; 97530; 99285; J7040; Q9967; A4216; C1751; C1769; C1894; J1940

== ENCOUNTER 2019-12-22 14:39 | Emergency (ER) | payer MEDICARE, SELFPAY ==
[2019-11-30 09:39] VITALS: BMI 26.6
[2019-12-22] VITALS (7 sets, daily range): BP systolic 156–181; BP diastolic 75–87; PULSE 56–65; RESP 16–20; TEMP 36.3; O2SAT 96–99; BMI 27.8
--- NOTE | 2019-12-22 15:08 | EKG12_ITS ---
Test Reason : CP Blood Pressure : / mmHG Vent. Rate : 057 BPM Atrial Rate : 057 BPM P-R Int : 168 ms QRS Dur : 108 ms QT Int : 478 ms P-R-T Axes : 100 014 046 degrees QTc Int : 465 ms Sinus bradycardia Otherwise normal ECG Confirmed by DAVI PEREZ, ARI ([id number]), purchasing expeditor MOLLY MACIEL ([id number]) on 12/25/2019 12:14:27 PM Referred By: ASCENCION Confirmed By:ARI TOMLINSON MD
--- NOTE | 2019-12-22 15:35 | ED.VIS.CHEST ---
History of Present Illness Chief Complaint: Chest Pain Informant: Patient Onset: Weeks Activity at onset: Unknown Timing: Intermittent Quality: Sharp Location: Left Chest Narrative: Patient is an 84-year-old male with history of 4 L O2 dependence, pleural effusions, DM2, anxiety, gout, hypertension, dementia, rheumatoid arthritis, chronic diastolic heart failure, pulmonary hypertension presenting with chest pain and shortness of breath. Patient has had intermittent chest pain and shortness of breath for the past month. states is been off and on. He gets episodes of chest pain that are in the left side of his chest. The pain radiates down his left arm. He states only last for minute or 2 at a time. He has taken nitroglycerin which relieves the pain. He took 2 doses of nitroglycerin last night. Patient states he had chest pain on the way to the hospital but does not currently have any. He is also been short of breath especially with exertion. Today he was so short of breath walking to the bathroom that he felt that he could not make it. They called the cardiology office who instructed him to come to the emergency room. Patient had a pleural effusion that had to be drained in September per the family. Patient has any fever did have chills the other day. He said no associated diaphoresis. He said no sore throat, muscle aches or runny nose. No GI symptoms. No symptoms. Patient does have some mild edema of his feet at the end of the day but this is normal for him. Patient states his been compliant with all his medications. is been checking his blood pressure at home and states is been a little high. She brought in the logs and his highest blood pressures been 160 systolic. Past Medical History - Allergies and Home Meds Allergies/Adverse Reactions: Allergies cimetidine HCl [From Tagamet] Allergy (Verified 12/22/19 14:41) Rash ciprofloxacin [From Cipro] Allergy (Verified 12/22/19 14:41) Rash amoxicillin trihydrate [From Augmentin] Adverse Reaction (Verified 12/22/19 14:41) Abd cramps/diarrhea cefdinir [From Omnicef] Adverse Reaction (Verified 12/22/19 14:41) Diarrhea indomethacin sodium [From Indocin] Adverse Reaction (Verified 12/22/19 14:41) Nausea memantine HCl [From Namenda] Adverse Reaction (Verified 12/22/19 14:41) dizziness potassium clavulanate [From Augmentin] Adverse Reaction (Verified 12/22/19 14:41) Abd cramps/diarrhea sitagliptin phosphate [From Januvia] Adverse Reaction (Verified 12/22/19 14:41) Nausea Primary Care Physician: Bhargav Mcleod MD [Primary Care Provider] - Past Medical History: - - 4 L O2 dependence, pleural effusions, DM2, anxiety, gout, hypertension, dementia, rheumatoid arthritis, chronic diastolic heart failure, pulmonary hypertension Surgical History: cholecystectomy, total knee arthroplasty Smoking Status: Never smoker - Family History Maternal Family History: Family History (Last Reviewed 11/24/19 @ 09:05 by Janina Nunez) Father CAD (coronary artery disease) Myocardial infarction Brother Diabetes Family History: Reports: No pertinent history Paternal Family History: Family History (Last Reviewed 11/24/19 @ 09:05 by Janina Nunez) Father CAD (coronary artery disease) Myocardial infarction Brother Diabetes Family History: Reports: No pertinent history Review of Systems General: Reports: Chills, Malaise. Denies: Fever, Sweats Eyes: Denies: Visual changes - bilaterally, Diplopia ENT: Denies: Rhinorrhea, Sore throat Cardiovascular: Reports: Chest pain. Denies: Palpitations Respiratory: Reports: Dyspnea, Dyspnea on exertion. Denies: Cough, Sputum Gastrointestinal: Denies: Abdominal pain, Nausea, Vomiting, Diarrhea, Melena, Hematochezia Genitourinary: Denies: Dysuria, Hematuria, Frequency Musculoskeletal: Denies: Back pain, Swelling, Extremity Pain Skin: Denies: Rash, Wounds Neurological: Denies: Headache, Weakness, Numbness Physical Exam Vital Signs/Narrative: Vital Signs Temp Pulse Resp BP Pulse Ox 12/22/19 14:41 97.3 F L 61 19 H 156/76 H 99 Inital Vital Signs reviewed: Yes General: Well nourished, Well developed, No Acute Distress Head: Normocephalic, Atraumatic Eyes: Perrl, EOMI ENT: Moist mucous membranes, No rhinorrhea, TM's clear Neck: Supple, Nontender, No JVD Cardiovascular: Regular rate, Regular rhythm, No murmurs Respiratory: No distress, CTA bilaterally, Chest nontender, Diminished - Left base Abdomen: Soft, Nontender, Nondistended, Normal bowel sounds Back: Nontender, Normal Inspection Extremities: Nontender, No edema Skin: Normal color, No rash Neurological: Alert, Oriented x3, Cranial nerves II-XII grossly intact, Normal Strength, Normal Sensation Psychological: Normal affect, Normal Mood Diagnostic/Tx/Re-eval Chest X-Ray - ED: 1 View, Read by ED Physician, Read by Radiologist, No Acute Disease Clinical Impression(s) from Imaging Studies Chest X-Ray 12/22/19 15:45 IMPRESSION: Bibasilar airspace disease with small effusions Electronically Signed: Juan Quintero DO at 16:10 EST Tel , Service support , Laboratory Data 12/22/19 12/22/19 12/22/19 15:44 15:44 15:44 WBC 6.2 RBC 4.30 L Hgb 11.9 L Hct 37.4 L MCV 87.0 MCH 27.7 MCHC 31.8 L RDW Std Deviation 67.9 H RDW Coeff of Juan Carlos 21.6 H Plt Count 128 L MPV 9.3 Immature Gran % (Auto) 1.000 H Neut % (Auto) 73.9 H Lymph % (Auto) 10.5 L [place] % (Auto) 9.9 Eos % (Auto) 3.6 Baso % (Auto) 1.1 H Absolute Neuts (auto) 4.6 Absolute Lymphs (auto) 0.65 L Nucleated RBC % 0 Platelet Estimate SLT DEC RBC Morphology N CHROM Anisocytosis 1+ Sodium 137 Potassium 4.1 Chloride 101 Carbon Dioxide 31.0 Anion Gap 5 BUN 28 H Creatinine 1.77 H Estim Creat Clear Calc 27.02 Est GFR (MDRD) Af Amer 47 L Est GFR (MDRD) Non-Af 39 L BUN/Creatinine Ratio 15.8 Glucose 144 H Calcium 8.9 Troponin I < 0.015 B-Natriuretic Peptide 415.8 H - Rhythm Strip Rhythm Strip: Sinus Rhythm Rate: 57 Ectopy: None - EKG Initial EKG Interpretation: Sinus Bradycardia, - - That is bradycardia at a rate of 57 Normal intervals Normal axis Normal ST segments - Medical Decision Making Patient is evaluated for intermittent episodes of chest pain and shortness of breath. Patient currently does not have any symptoms. He appears nontoxic in no acute distress. His vital signs are all normal. He is on his baseline oxygen. Patient is ambulated and does not go below 96% on his 4 L. Chest x-ray does not show any acute process and has very minimal pleural effusions. He does not have any significant redevelopment of his pleural effusion. Patient not have physical exam findings concerning for CHF.CBC is remarkable only for a hemoglobin 11.9. This is actually his baseline. His white blood cell count is normal. Platelets are only mildly low at 128. Patient's creatinine is elevated at 1.77 however this is his baseline. His proBNP is also elevated at 415 but again this is his baseline. His troponin is negative. Patient does not have any dynamic EKG changes. Discussed with cardiology on-call, Dr. Brush who reviewed the patient's records. As patient also had a negative heart catheterization in August he feels that patient is likely safe for discharge home. He does recommend doubling the patient's Lasix to twice a day for the next 3 days. Patient and are agreeable with this. At this time I do not think patient requires admission for IV diuresing. He is at his baseline oxygen. His chest pain is atypical and he had a negative cath less than 6 months ago. Finally patient symptoms have been ongoing for the past 2 to 3 weeks so I do feel he is stable for outpatient follow-up. Patient is instructed to call his cardiology office on Wednesday. Patient is counseled on signs and symptoms requiring return to the emergency room. Patient verbalizes agreement and understand this plan. Patient discharged home in stable and improved condition. ED Disposition - Plan for ED Patient: Disposition: Home or Assisted Living Diagnosis: Dyspnea, Chest pain Instructions: CHF, General, CHEST PAIN, Uncertain Cause Referrals: Bhargav Mcleod MD [Primary Care Provider] - Additional Instructions: For the next 3 days please take your 40 mg of Lasix twice a day instead of once a day. Your lab work and x-ray appear to be pretty stable but you do have a little bit of extra fluid. If your symptoms worsen please return the emergency room. Please call the [facility] office on Wednesday to set up a follow-up appointment as soon as possible. Return the emergency room with any worsening symptoms.
--- NOTE | 2019-12-22 15:45 | RAD_ITS ---
STUDY: X-RAY CHEST REASON FOR EXAM: Male, 84 years old. SOB,chest pain TECHNIQUE: Single AP portable view of the chest. COMPARISON: 09/28/2019 FINDINGS: There is hyperinflation of the lungs consistent with chronic obstructive lung disease (COPD). Decreased right effusion. Continued right lower lobe airspace disease with small effusion. Left lower lobe airspace disease with a small effusion as well. There is moderate cardiac enlargement. Normal mediastinum and monalisa. Normal visualized pulmonary arteries. Normal visualized aortic arch and descending thoracic aorta. Normal visualized thoracic spine. Right shoulder arthroplasty There is no demonstrated abnormality of the visualized soft tissue structures of the upper abdomen. RAD/Chest 1 View (Portable) IMPRESSION: Bibasilar airspace disease with small effusions Electronically Signed: Juan Quintero DO at 16:10 EST Tel , Service support ,
[2019-12-22 15:49] LABS: Absolute Lymphocyte Count 0.65 X10^3/uL (0.83-4.51); Absolute Neutrophil Count 4.6 X10^3/uL (2.0-7.7); Basophil# 0.07 X10^3/uL; Basophil% 1.1 % (0-1); Eosinophil# 0.22 X10^3/uL; Eosinophils% 3.6 % (0-5); Hematocrit 37.4 % (40-54); Hemoglobin 11.9 g/dL (13.0-16.5); Lymphocyte # 0.65 X10^3/ul (4.0); Lymphocyte % 10.5 % (19-41); Mean Corp Hgb Conc 31.8 g/dL (32-36); Mean Corpuscular Hgb 27.7 pg (27.0-32.0); Mean Platelet Vol. 9.3 fl (6.2-12.0); Monocyte# 0.61 X10^3/uL; Monocyte% 9.9 % (0-10); NRBC Flagged by Analyzer 0 % (0-5); Neutrophil # 4.57 X10^3/uL (2.7-7.7); Neutrophil % 73.9 % (47-70); POSITIVE MORPHOLOGY YES; Platelet Count 128 K/mm3 (150-450); RBC Distribution Width CV 21.6 % (11.6-14.6); RBC Distribution Width SD 67.9 fl (35.1-43.9); White Blood Count 6.2 K/mm3 (4.4-11.0)
[2019-12-22 16:23] LABS: Differential Indicated SCAN CRITERIA MET
[2019-12-22 16:27] LABS: Anion Gap 5 (5-15); BUN 28 mg/dL (7-18); BUN/Creat Ratio 15.8 RATIO (10-20); Calcium,Total 8.9 mg/dL (8.5-10.1); Chloride 101 mmol/L (98-107); Creatinine, Serum 1.77 mg/dL (0.70-1.30); EST Glomerular Filtration Rate 39 mL/min (>60); Est Glom Filt Rate - Afr Amer 47 mL/min (>60); Estimated Creatinine Clearance 27.02 ml/min; Glucose 144 mg/dL (74-106); Potassium 4.1 mmol/L (3.5-5.1); Sodium Level 137 mmol/L (136-145)
[2019-12-22 16:40] LABS: BNP,B-Type NATRIURETIC PEPTIDE 415.8 pg/mL (0-100)
[2019-12-22 16:47] LABS: Anisocytosis 1+; Platelet Estimate SLT DEC (ADEQ); Red Cell Morphology N CHROM NORMAL (NORM C&C)
== END 2019-12-22 18:40 | disposition home or self-care (01) ==
PROVIDERS: Emergency Provider Emergency Medicine; PCP Family Medicine
DX: R07.9 Chest pain, unspecified (principal); R06.00 Dyspnea, unspecified; I11.0 Hypertensive heart disease with heart failure; I50.32 Chronic diastolic (congestive) heart failure; I27.20 Pulmonary hypertension, unspecified; M06.9 Rheumatoid arthritis, unspecified; M10.9 Gout, unspecified; E11.9 Type 2 diabetes mellitus without complications; F03.90 Unspecified dementia, unspecified severity, without behavioral disturbance, psychotic disturbance, mood disturbance, and anxiety; Z99.81 Dependence on supplemental oxygen; Z79.899 Other long term (current) drug therapy
CPT/HCPCS: 71045; 80048; 83880; 84484; 85025; 93005; 99285; A4216

== ENCOUNTER 2020-03-23 09:16 | Emergency (ER) | payer MEDICARE, SELFPAY ==
[2019-12-22 14:41] VITALS: BMI 27.8
[2020-03-23 09:18] VITALS: BP 141/75; PULSE 61; RESP 16; TEMP 36.8; O2SAT 99; BMI 28.3
--- NOTE | 2020-03-23 09:28 | RAD_ITS ---
STUDY: X-RAY - LEFT WRIST REASON FOR EXAM: Male, 84 years old. RADIAL SIDE PAIN. HX FALL. NAVICULAR VW REQUESTED TECHNIQUE: 4 view(s) of the wrist were obtained. COMPARISON: None. FINDINGS: Diffuse osteopenia. Normal visualized distal radius and ulna. Degenerative narrowing of the radiocarpal articulation with chondrocalcinosis. Normal distal radioulnar articulation. Normal carpal bones. Normal carpal articulations. Normal carpometacarpal articulation of the thumb. Normal second through fifth carpometacarpal articulations. Normal visualized metacarpal bones. 5.3 mm broken metallic needle foreign body embedded in the soft tissue overlying the neck of the metacarpal of the thumb. RAD/Wrist min 3 Views IMPRESSION: 1. 5.3 mm broken metallic needle foreign body embedded in the soft tissues overlying the metacarpal of the left thumb. 2. Diffuse osteopenia of the left wrist. 3. Faint chondrocalcinosis of the radiocarpal articulation. 4. No acute fracture of the left wrist. Electronically Signed: Nino John MD at 10:07 EDT , Service support ,
--- NOTE | 2020-03-23 09:29 | ED.VIS.INJ ---
History of Present Illness Chief Complaint: Fall Informant: Patient Onset: Yesterday Mechanism/Context: Blunt Injury, Fall Quality of Pain: Dull, Aching Location: Left wrist Current Severity: Mild Maximum Severity: Moderate Worsened by: Using left wrist Relieved by: Splint and rest Associated Symptoms: Loss of function. Negative for: Parasthesias, Weakness, Inability to ambulate, Loss of consciousness Narrative: Patient is an 84-year-old [id number] male who presents after mechanical fall. He states he tripped in the yard. He landed with his arm outstretched. There is no history of head trauma. Denies loss of conscious. Denies visual, ocular auditory symptoms. Denies trouble with speech or swallowing. He denies neck pain or neck stiffness. He denies cardiac respiratory symptoms. He denies paresthesia, anesthesia or motor weakness of the left upper extremity. He denies shoulder or elbow pain. Prior similar symptoms: No Recent Illness/Hospitalization: No - Past Medical History (1) Atrial fibrillation Status: Acute (2) Pleural effusion Status: Acute (3) Renal insufficiency Status: Acute (4) (HFpEF) heart failure with preserved ejection fraction Status: Chronic (5) Anemia of chronic disease Status: Chronic Comment: due to CRF and RA (6) Chronic renal failure, stage 3 (moderate) Status: Chronic (7) Diabetes mellitus, type II Status: Chronic (8) Generalized osteoarthritis Status: Chronic (9) History of gout Status: Chronic (10) History of prostate cancer Status: Chronic Comment: Status post radiotherapy (11) Hypertension Status: Chronic (12) senior living current use of anticoagulant Status: Chronic (13) Non-rheumatic aortic stenosis Status: Chronic (14) Non-rheumatic tricuspid valve insufficiency Status: Chronic (15) Nonrheumatic mitral (valve) insufficiency Status: Chronic Past Medical History - Allergies and Home Meds Allergies/Adverse Reactions: Allergies cimetidine HCl [From Tagamet] Allergy (Verified 03/23/20 09:50) Rash ciprofloxacin [From Cipro] Allergy (Verified 03/23/20 09:50) Rash amoxicillin trihydrate [From Augmentin] Adverse Reaction (Verified 03/23/20 09:50) Abd cramps/diarrhea cefdinir [From Omnicef] Adverse Reaction (Verified 03/23/20 09:50) Diarrhea indomethacin sodium [From Indocin] Adverse Reaction (Verified 03/23/20 09:50) Nausea memantine HCl [From Namenda] Adverse Reaction (Verified 03/23/20 09:50) dizziness potassium clavulanate [From Augmentin] Adverse Reaction (Verified 03/23/20 09:50) Abd cramps/diarrhea sitagliptin phosphate [From Januvia] Adverse Reaction (Verified 03/23/20 09:50) Nausea Primary Care Physician: Bhargav Mcleod MD [Primary Care Provider] - Prior records reviewed: Yes - Patient has history of anticoagulant use Surgical History: cholecystectomy, total knee arthroplasty Lives: Spouse/ Significant Other Smoking Status: Never smoker Alcohol: None Drugs: None - Family History Maternal Family History: Family History (Last Reviewed 11/24/19 @ 09:05 by Janina Nunez) Father CAD (coronary artery disease) Myocardial infarction Brother Diabetes Family History: Reports: No pertinent history Paternal Family History: Family History (Last Reviewed 11/24/19 @ 09:05 by Janina Nunez) Father CAD (coronary artery disease) Myocardial infarction Brother Diabetes Family History: Reports: No pertinent history Review of Systems Eyes: Denies: Visual changes - bilaterally, Blurred Vision - bilaterally ENT: Denies: Rhinorrhea, Sore throat Cardiovascular: Denies: Chest pain, Palpitations Respiratory: Denies: Dyspnea, Cough, Dyspnea on exertion Gastrointestinal: Denies: Abdominal pain, Nausea, Vomiting, Melena Genitourinary: Denies: Dysuria, Hematuria, Frequency Musculoskeletal: Reports: Swelling, Extremity Pain. Denies: Myalgias, Arthralgias, Neck pain, Back pain, -, - Skin: Denies: Rash, Wounds Neurological: Denies: Headache, Weakness, Parasthesia, Numbness Endocrine: Denies: Polyuria, Polydipsia Hematologic: Denies: Easy bruising, Easy bleeding Physical Exam Vital Signs/Narrative: Vital Signs Temp Pulse Resp BP Pulse Ox 03/23/20 09:18 98.2 F 61 16 141/75 H 99 Inital Vital Signs reviewed: Yes General: Well nourished, Well developed Head: Normocephalic, Atraumatic - There is an abrasion noted over the right maxillary region.. Negative for: Tenderness Eyes: Perrl, EOMI, - - There is no subconjunctival hemorrhage noted. Negative for: Pale conjunctiva, Scleral icterus ENT: TM's clear, No hemotympanum or drainage, No trauma. Negative for: Hemotympanum, Otorrhea, Nasal trauma, Nasal septal hematoma Neck: Nontender, Full ROM. Negative for: Spinal Tenderness, Paraspinal Tenderness Cardiovascular: No murmurs, Irregular Respiratory: No distress, CTA bilaterally, Chest nontender Abdomen: Soft, Nontender, Nondistended, Normal bowel sounds Extremeties: There is ecchymosis noted over the carpal bones. There is pain outpatient anatomical snuffbox and with axial loading the left thumb. There is also a hematoma noted over the IP joint of left thumb. There is no tenderness to palpation or flexion extension of the IP joint. Median, radial and ulnar function intact. There is no pain the patient over the lateral medial epicondyle. There is no pain ovation over the olecranon process or radial head. There is no pain palpation of the proximal humerus, clavicle or AC joint. Skin: Normal color, No rash, Trauma - Coloration contusion over the dorsal side of the left wrist.. Negative for: Cyanosis, Diaphoresis, Jaundice Neurological: Alert, Oriented x3, Cranial nerves II-XII grossly intact, Normal Strength, Normal Sensation. Negative for: Normal Gait Psychological: Normal affect, Normal Mood Diagnostic/Tx/Re-eval Chest X-Ray - ED: Read by ED Physician, - - View x-ray of the left wrist was obtained. There appears to be a nondisplaced fracture of the ulnar styloid. There is significant degenerative changes at the distal radius. There is no obvious fracture noted of the navicular/scaphoid. There is a volar fat pad. Patient has a removable thumb spica splint. Will discuss case with Dr. Moreno to determine if he wants a nonremovable splint. 03/23/20 09:28 Wrist min 3 Views [RAD] Stat - Medical Decision Making X-ray of the left wrist with navicular view was ordered because of concern for scaphoid fracture. Differential is contusion, strain versus fracture Dr. Moreno did review x-rays. He wishes patient to call his office for follow-up appointment in 2 weeks for repeat x-ray. Patient was treated with the thumb spica splint he presented with. He was instructed to wear it continuously. ED Disposition - Plan for ED Patient: Disposition: Home or Assisted Living Diagnosis: Clinical navicular fracture left wrist Instructions: ED Fx Wrist Navicular Poss Referrals: Bhargav Mcleod MD [Primary Care Provider] - Abdifatah Moreno MD [STAFF PHYSICIAN] - 04/05/20 Additional Instructions: Call for appointment to be seen in approximately 2 weeks. Wear splint continuously. Elevate wrist above nose. Apply ice 6-8 times a day for the next 2 to 3 days.
[2020-03-23 10:06] VITALS: BP 141/75; PULSE 61; RESP 18
== END 2020-03-23 10:19 | disposition home or self-care (01) ==
PROVIDERS: Emergency Provider Emergency Medicine; PCP Family Medicine
DX: S62.002A Unspecified fracture of navicular [scaphoid] bone of left wrist, initial encounter for closed fracture (principal); I48.91 Unspecified atrial fibrillation; I13.0 Hypertensive heart and chronic kidney disease with heart failure and stage 1 through stage 4 chronic kidney disease, or unspecified chronic kidney disease; I50.32 Chronic diastolic (congestive) heart failure; E11.22 Type 2 diabetes mellitus with diabetic chronic kidney disease; N18.3 Chronic kidney disease, stage 3 (moderate); M19.90 Unspecified osteoarthritis, unspecified site; Z85.46 Personal history of malignant neoplasm of prostate; W18.30XA Fall on same level, unspecified, initial encounter; Y93.01 Activity, walking, marching and hiking; Y92.007 Garden or yard of unspecified non-institutional (private) residence as the place of occurrence of the external cause; Y99.8 Other external cause status
CPT/HCPCS: 73110; 99282

== ENCOUNTER → 2020-04-04 | Outpatient (CLI) | payer SELFPAY ==
[2020-03-26 08:44] VITALS: BMI 28.1
--- NOTE | 2020-04-04 13:17 | CT_ITS ---
STUDY: CT SCAN WRIST LEFT REASON FOR EXAM: Male, 84 years old. OSTEOARTHRITIS, pain in left wrist RADIATION DOSAGE (If Supplied By Facility): CTDIvol = ( 24.58 ) mGy, DLP = ( 499.14 ) mGycm. Individualized dose optimization techniques were used for this CT.? TECHNIQUE: Multiple axial tomographic images were obtained without intravenous contrast administration. Sagittal and axial reconstruction was obtained as well. COMPARISON: None. FINDINGS: Degenerative changes of the radiocarpal joint. There is a 5.3 mm x 5.3 mm cyst in the distal portion of the carpal navicular bone. Degenerative changes of the carpal articulations. Degenerative changes of the distal radial ulnar joint. There is also evidence of a joint space narrowing and degenerative changes involving the first carpometacarpal joint. There is also evidence of a narrowing of the second and third metacarpophalangeal joints. CT/Extremity Upper without Contra IMPRESSION: There is evidence of degenerative changes of the radial ulnar and radiocarpal joints as well as the carpal joints. Degenerative changes of the second and third metacarpal phalangeal joints. Electronically Signed: Justin Castro, at 14:04 EDT , Service support ,
== END | disposition home or self-care (01) ==
LOC: CT 13:15
PROVIDERS: PCP Family Medicine; Referring Provider Physician Assistant Surgical; Visit Provider Physician Assistant Surgical
DX: M25.532 Pain in left wrist (principal); M19.032 Primary osteoarthritis, left wrist; M18.12 Unilateral primary osteoarthritis of first carpometacarpal joint, left hand
CPT/HCPCS: 73200

== ENCOUNTER → 2020-05-22 | Outpatient (CLI) | payer MEDICARE, SELFPAY ==
[2020-03-26 08:44] VITALS: BMI 28.1
[2020-05-22 12:49] LABS: Uric Acid 5.2 mg/dL (3.5-7.2)
[2020-05-22 13:01] LABS: Hemoglobin A1c 6.3 % (3.8-5.6)
== END | disposition home or self-care (01) ==
LOC: MFPLAB 11:03
PROVIDERS: PCP Family Medicine; Visit Provider Family Medicine
DX: E11.9 Type 2 diabetes mellitus without complications (principal); M10.9 Gout, unspecified
CPT/HCPCS: 36415; 83036; 84550

== ENCOUNTER 2020-05-25 19:00 | Emergency (ER) | payer MEDICARE, SELFPAY ==
[2020-03-26 08:44] VITALS: BMI 28.1
[2020-05-25 19:02] VITALS: BP 189/85; PULSE 61; RESP 17; TEMP 36.4; O2SAT 96; BMI 29.7
--- NOTE | 2020-05-25 19:26 | ED.DCSUM_ITS ---
History of Present Illness Chief Complaint: Hyperglycemia Informant: Patient, Family Onset: Yesterday Narrative: Patient has a history of diabetes and was previously on metformin, taken off just over a year ago. They still check his blood sugars regularly. Patient was seen by his PCP 4 days ago for a rash in his groin. He was placed on p.o. prednisone for 5 days. states yesterday his blood sugars were 205 and 199. Today his blood sugars been 197, 260, and 303. They were not aware that the prednisone will make his blood sugars go up. Patient has no significant complaints. He states the rash is improving. - Past Medical History (1) (HFpEF) heart failure with preserved ejection fraction Status: Chronic (2) Atrial fibrillation Status: Chronic (3) Anemia of chronic disease Status: Chronic Comment: due to CRF and RA (4) Chronic renal failure, stage 3 (moderate) Status: Chronic (5) Diabetes mellitus, type II Status: Chronic (6) History of prostate cancer Status: Chronic Comment: Status post radiotherapy (7) Hypertension Status: Chronic (8) Mild dementia Status: Chronic (9) PAF (paroxysmal atrial fibrillation) Status: Chronic (10) Rheumatoid arthritis Status: Chronic Past Medical History - Allergies and Home Meds Allergies/Adverse Reactions: Allergies cimetidine HCl [From Tagamet] Allergy (Verified 05/25/20 19:01) Rash ciprofloxacin [From Cipro] Allergy (Verified 05/25/20 19:01) Rash amoxicillin trihydrate [From Augmentin] Adverse Reaction (Verified 05/25/20 19:01) Abd cramps/diarrhea cefdinir [From Omnicef] Adverse Reaction (Verified 05/25/20 19:01) Diarrhea indomethacin sodium [From Indocin] Adverse Reaction (Verified 05/25/20 19:01) Nausea memantine HCl [From Namenda] Adverse Reaction (Verified 05/25/20 19:01) dizziness potassium clavulanate [From Augmentin] Adverse Reaction (Verified 05/25/20 19:01) Abd cramps/diarrhea sitagliptin phosphate [From Januvia] Adverse Reaction (Verified 05/25/20 19:01) Nausea Primary Care Physician: Bhargav Mlceod MD [Primary Care Provider] - Prior records reviewed: Yes Surgical History: cholecystectomy, total knee arthroplasty Smoking Status: Unknown if ever smoked - Family History Maternal Family History: Family History (Last Reviewed 03/26/20 @ 08:44 by Janina Nunez) Father CAD (coronary artery disease) Myocardial infarction Brother Diabetes Family History: Reports: No pertinent history Paternal Family History: Family History (Last Reviewed 03/26/20 @ 08:44 by Janina Nunez) Father CAD (coronary artery disease) Myocardial infarction Brother Diabetes Family History: Reports: No pertinent history Review of Systems General: Denies: Chills, Fever Eyes: Denies: Visual changes - bilaterally ENT: Denies: Bilateral ear pain Cardiovascular: Denies: Chest pain Respiratory: Denies: Dyspnea, Cough Gastrointestinal: Denies: Abdominal pain, Nausea, Vomiting, Diarrhea Genitourinary: Denies: Dysuria Musculoskeletal: Denies: Extremity Pain Neurological: Denies: Headache Allergy: Denies: Uticaria Physical Exam Vital Signs/Narrative: Vital Signs Temp Pulse Resp BP Pulse Ox 05/25/20 19:02 97.6 F L 61 17 189/85 H 96 Inital Vital Signs reviewed: Yes General: Well nourished, Well developed Head: Normocephalic ENT: Moist mucous membranes Neck: Supple Cardiovascular: Regular rate, Regular rhythm Respiratory: No distress, CTA bilaterally Abdomen: Soft, Nontender Neurological: Alert, Oriented x3 Psychological: Normal affect Diagnostic/Tx/Re-eval Laboratory Results 05/25/20 05/25/20 19:27 19:27 WBC 9.7 RBC 4.18 L Hgb 13.2 Hct 40.4 MCV 96.7 H MCH 31.6 MCHC 32.7 RDW Std Deviation 50.4 H RDW Coeff of Juan [place] 14.2 Plt Count 171 MPV 10.2 Immature Gran % (Auto) 2.500 H Neut % (Auto) 88.9 H Lymph % (Auto) 4.1 L [place] % (Auto) 4.1 Eos % (Auto) 0.2 Baso % (Auto) 0.2 Absolute Neuts (auto) 8.6 H Absolute Lymphs (auto) 0.40 L Nucleated RBC % 0 Differential Comment SCANNED Sodium 139 Potassium 4.6 Chloride 101 Carbon Dioxide 29.0 Anion Gap 9 BUN 48 H Creatinine 1.60 H Estim Creat Clear Calc 29.90 Est GFR (MDRD) Af Amer 53 L Est GFR (MDRD) Non-Af 44 L BUN/Creatinine Ratio 30.0 H Glucose 297 H Calcium 9.3 - Medical Decision Making Patient was given 500 cc normal saline bolus. Blood sugar on BMP is 297. I did explain to family that he is able to go ahead and stop the prednisone. Over the next couple days his blood sugars should improve. ED Disposition - Plan for ED Patient: Disposition: Home or Assisted Living Diagnosis: Hyperglycemia Instructions: Hyperglycemia (High Blood Sugar) Referrals: Bhargav Mcleod MD [Primary Care Provider] - 1 Week if not improving Additional Instructions: Your elevated blood sugar secondary to the prednisone use. You may go ahead and stop the prednisone. Your blood sugars should improve over the next couple of days.
[2020-05-25 20:04] LABS: Absolute Neutrophil Count 8.6 X10^3/uL (2.0-7.7); Basophil# 0.02 X10^3/uL; Basophil% 0.2 % (0-1); Eosinophil# 0.02 X10^3/uL; Eosinophils% 0.2 % (0-5); Hematocrit 40.4 % (40-54); Hemoglobin 13.2 g/dL (13.0-16.5); Lymphocyte % 4.1 % (19-41); Mean Corp Hgb Conc 32.7 g/dL (32-36); Mean Corpuscular Hgb 31.6 pg (27.0-32.0); Mean Corpuscular Volume 96.7 fL (80-94); Mean Platelet Vol. 10.2 fl (6.2-12.0); Monocyte% 4.1 % (0-10); NRBC Flagged by Analyzer 0 % (0-5); Neutrophil # 8.59 X10^3/uL (2.7-7.7); Neutrophil % 88.9 % (47-70); POSITIVE DIFFERENTIAL YES; Platelet Count 171 K/mm3 (150-450); RBC Distribution Width CV 14.2 % (11.6-14.6); RBC Distribution Width SD 50.4 fl (35.1-43.9); Red Blood Count 4.18 M/mm3 (4.6-6.2); White Blood Count 9.7 K/mm3 (4.4-11.0)
[2020-05-25 20:07] LABS: Differential Indicated SCAN CRITERIA MET
[2020-05-25 20:16] LABS: Anion Gap 9 (5-15); BUN 48 mg/dL (7-18); Calcium,Total 9.3 mg/dL (8.5-10.1); Chloride 101 mmol/L (98-107); EST Glomerular Filtration Rate 44 mL/min (>60); Est Glom Filt Rate - Afr Amer 53 mL/min (>60); Glucose 297 mg/dL (74-106); Potassium 4.6 mmol/L (3.5-5.1); Sodium Level 139 mmol/L (136-145)
[2020-05-25 20:43] LABS: Differential Comment SCANNED
[2020-05-25 21:05] VITALS: BP 188/99; PULSE 87; RESP 16; O2SAT 96
== END 2020-05-25 21:07 | disposition home or self-care (01) ==
PROVIDERS: Emergency Provider Emergency Medicine; PCP Family Medicine
DX: E11.65 Type 2 diabetes mellitus with hyperglycemia (principal); I13.0 Hypertensive heart and chronic kidney disease with heart failure and stage 1 through stage 4 chronic kidney disease, or unspecified chronic kidney disease; I50.32 Chronic diastolic (congestive) heart failure; E11.22 Type 2 diabetes mellitus with diabetic chronic kidney disease; N18.3 Chronic kidney disease, stage 3 (moderate); F03.90 Unspecified dementia, unspecified severity, without behavioral disturbance, psychotic disturbance, mood disturbance, and anxiety
CPT/HCPCS: 80048; 85025; 96360; 99283; J7040; A4216

== ENCOUNTER → 2020-06-19 | Outpatient (CLI) | payer MEDICARE, SELFPAY ==
[2020-05-25 19:02] VITALS: BMI 29.7
--- NOTE | 2020-06-19 09:43 | RAD_ITS ---
STUDY: X-RAY - LEFT HUMERUS REASON FOR EXAM: Male, 84 years old. Left arm pain/soreness-noticed it last night when putting on blood pressure cuff, no injury TECHNIQUE: 4 view(s) of the humerus. COMPARISON: None. FINDINGS: There is diffuse demineralization of the humerus. There is no demonstrated fracture or osseous destructive process. There is arthrosis of the visualized glenohumeral articulation. Calcific densities noted lateral to the humeral head consistent with calcific rotator cuff tendinitis. RAD/Humerus min 2 Views IMPRESSION: Demineralization of the osseous structures, no demonstrated humeral fracture. Moderate to severe glenohumeral and acromioclavicular joint arthrosis Calcific rotator cuff tendinitis Electronically Signed: Alex Pickard MD at 10:12 EDT , Service support ,
== END | disposition home or self-care (01) ==
LOC: MTRAD 09:41
PROVIDERS: PCP Family Medicine; Referring Provider Family Medicine; Visit Provider Family Medicine
DX: M79.602 Pain in left arm (principal)
CPT/HCPCS: 73060

== ENCOUNTER → 2020-10-11 | Outpatient (CLI) | payer SELFPAY ==
[2020-07-22 08:55] VITALS: BMI 28.1
[2020-10-11 13:28] LABS: Color, Urine Yellow (Yellow); Glucose, Dipstick Normal (Normal); Ketone-Dipstick Negative (Negative); Leukocyte Esterase-Dipstick Negative /ul (Negative); Nitrite-Dipstick Negative (Negative); Occult Blood-Urine 10 /ul (Negative); Protein-Dipstick Negative (Negative); Urine Bilirubin Dipstick Negative (Negative); Urine Clarity Clear (Clear); Urine Urobilinogen Normal (Normal)
[2020-10-11 13:42] LABS: Hemoglobin 12.3 g/dL (13.0-16.5); Mean Corp Hgb Conc 31.5 g/dL (32-36); Mean Corpuscular Hgb 32.5 pg (27.0-32.0); Mean Corpuscular Volume 102.9 fL (80-94); Platelet Count 106 K/mm3 (150-450); RBC Distribution Width CV 13.3 % (11.6-14.6); RBC Distribution Width SD 50.4 fl (35.1-43.9); Red Blood Count 3.79 M/mm3 (4.6-6.2); White Blood Count 8.1 K/mm3 (4.4-11.0)
[2020-10-11 13:43] LABS: Anion Gap 4 (5-15); BUN 68 mg/dL (7-18); BUN/Creat Ratio 20.7 RATIO (10-20); Calcium,Total 8.4 mg/dL (8.5-10.1); Chloride 112 mmol/L (98-107); Creatinine, Serum 3.28 mg/dL (0.70-1.30); EST Glomerular Filtration Rate 19 mL/min (>60); Est Glom Filt Rate - Afr Amer 23 mL/min (>60); Glucose 129 mg/dL (74-106); Potassium 6.1 mmol/L (3.5-5.1); Sodium Level 135 mmol/L (136-145)
== END | disposition home or self-care (01) ==
LOC: LABSPEC 12:58
PROVIDERS: PCP Family Medicine
DX: I95.9 Hypotension, unspecified (principal); R06.00 Dyspnea, unspecified; R00.1 Bradycardia, unspecified; R07.9 Chest pain, unspecified; R53.83 Other fatigue
CPT/HCPCS: 80048; 81002; 85027; Q9967

== ENCOUNTER → 2020-10-17 13:17 | Outpatient (CLI) | payer MEDICARE, SELFPAY ==
[2020-07-22 08:55] VITALS: BMI 28.1
[2020-10-17 13:45] LABS: Anion Gap 4 (5-15); BUN 45 mg/dL (7-18); BUN/Creat Ratio 20.6 RATIO (10-20); Chloride 110 mmol/L (98-107); Creatinine, Serum 2.18 mg/dL (0.70-1.30); EST Glomerular Filtration Rate 31 mL/min (>60); Est Glom Filt Rate - Afr Amer 37 mL/min (>60); Glucose 170 mg/dL (74-106); Potassium 4.4 mmol/L (3.5-5.1); Sodium Level 139 mmol/L (136-145)
== END ==
PROVIDERS: PCP Family Medicine
DX: E87.6 Hypokalemia (principal)
CPT/HCPCS: 80048

== ENCOUNTER 2020-10-29 11:11 | Observation (INO) | payer MEDICARE, SELFPAY ==
[2020-07-22 08:55] VITALS: BMI 28.1
[2020-10-29] VITALS (9 sets, daily range): BP systolic 105–183; BP diastolic 53–93; PULSE 57–73; RESP 10–18; TEMP 36.4–36.8; O2SAT 97–100; BMI 29.5; BMI 28.9
--- NOTE | 2020-10-29 11:27 | EKG12_ITS ---
Test Reason : SYNCOPE Blood Pressure : / mmHG Vent. Rate : 064 BPM Atrial Rate : 064 BPM P-R Int : 174 ms QRS Dur : 108 ms QT Int : 456 ms P-R-T Axes : 064 004 -43 degrees QTc Int : 470 ms Normal sinus rhythm Normal ECG Confirmed by VALE PEREZ, EVELIN ([id number]), editorial cartoonist KARMA SAMPSON ([id number]) on 10/30/2020 1:47:31 PM Referred By: ALICIA Confirmed By:LORA COLLAZO MD
--- NOTE | 2020-10-29 11:29 | ED.VISSUMM ---
- ER Visit Summary Date of Service: 10/29/20 Chief Complaint: [Syncope] History of Present Illness: The patient is a 84 M [presents to the emergency department via EMS from home. Patient had a syncopal episode while at home on the toilet. Patient apparently had sat down and had a bowel movement and then became nauseated. The states that she was able to stand him up a little bit to clean him up with any sat back down on the toilet seat and started to become unresponsive. She was having a hard time holding him up on the seat so she lowered him gently to the ground. Patient's then called for help. Patient has not had episode like this before. Patient is currently on hospice. He does have history of A. fib, diabetes, hypertension, CHF, dementia, rheumatoid arthritis, and history of atrial fibrillation. On arrival patient is without complaints. He denies any chest pain or shortness of breath. He does complain feeling a little bit lightheaded. No recent illness. No COVID-19 exposures.] Physical Examination: [HEENT-PERRLA, EOMI. Cranial nerves II through XII grossly intact. TMs clear. Mucous membranes moist. No adenopathy. Cardiovascular-regular rate and rhythm without murmur or ectopy Lungs-clear to auscultation, chest wall stable without crepitus or subcu emphysema Abdomen-normoactive bowel sounds, soft, nontender, no rebound or rigidity, no peritoneal signs. Extremities-intact ?4, normal range of motion, normal pulses, atraumatic] Test Results: [EKG obtained on arrival shows sinus rhythm with a ventricular rate of 64 bpm with no acute ischemic changes. CBC with differential obtained showed a white count of 5.4, hemoglobin 13, hematocrit 39, platelets 126. Chemistry shows sodium 139, potassium 4.2, chloride 104, CO2 31, glucose 161, BUN 45 and creatinine 2.3. Troponin was 0.043. Chest x-ray showed small left pleural effusion and bibasilar atelectasis. Orthostatic vital signs were positive upon standing.] Emergency Department Course and Treatment: [The line established. Patient was treated with normal saline. Patient placed on a quality assurance monitor body.] Treatment Plan: [Admit] Disposition: [Admit] Impression: [Syncope Orthostatic hypotension] This note was generated with Patreonation software. It may contain incorrect words, spelling, and punctuation that were not noted in review of the chart prior to signing ED Disposition - Plan for ED Patient: Referrals: Bhargav Mcleod MD [Primary Care Provider] -
--- NOTE | 2020-10-29 11:35 | RAD_ITS ---
STUDY: X-RAY CHEST REASON FOR EXAM: Male, 84 years old. SYNCOPE WHILE ON TOILET. HOSPICE PATIENT TECHNIQUE: Single AP portable view of the chest. COMPARISON: Comparison is made with prior study dated 12/22/2019. FINDINGS: EKG electrodes are seen. Small left pleural effusion and left basilar infiltrate and/or atelectasis. There is mild cardiac enlargement. Normal mediastinum and monalisa. Normal visualized pulmonary arteries. There is atherosclerotic calcification of the aortic arch with tortuosity. There are diffuse degenerative changes of the visualized thoracic spine. Status post right shoulder replacement. Degenerative changes of the left shoulder. There is no demonstrated abnormality of the visualized soft tissue structures of the upper abdomen. RAD/Chest 1 View (Portable) IMPRESSION: Small left pleural effusion with left basilar atelectasis and/or infiltrate. Electronically Signed: Justin Castro, at 11:55 EST , Service support ,
[2020-10-29 11:42] LABS: Absolute Lymphocyte Count 0.54 X10^3/uL (0.83-4.51); Absolute Neutrophil Count 4.2 X10^3/uL (2.0-7.7); Basophil# 0.05 X10^3/uL; Basophil% 0.9 % (0-1); Eosinophil# 0.12 X10^3/uL; Eosinophils% 2.2 % (0-5); Hematocrit 38.9 % (40-54); Lymphocyte # 0.54 X10^3/ul (4.0); Mean Corp Hgb Conc 33.4 g/dL (32-36); Mean Corpuscular Hgb 32.7 pg (27.0-32.0); Mean Platelet Vol. 9.6 fl (6.2-12.0); Monocyte# 0.42 X10^3/uL; Monocyte% 7.8 % (0-10); NRBC Flagged by Analyzer 0 % (0-5); Neutrophil % 77.6 % (47-70); POSITIVE DIFFERENTIAL YES; Platelet Count 126 K/mm3 (150-450); RBC Distribution Width CV 11.9 % (11.6-14.6); RBC Distribution Width SD 43.4 fl (35.1-43.9); Red Blood Count 3.97 M/mm3 (4.6-6.2); White Blood Count 5.4 K/mm3 (4.4-11.0)
[2020-10-29 11:44] LABS: Differential Indicated SCAN CRITERIA MET
[2020-10-29 12:01] LABS: Anion Gap 4 (5-15); BUN 45 mg/dL (7-18); BUN/Creat Ratio 19.5 RATIO (10-20); Calcium,Total 9.1 mg/dL (8.5-10.1); Chloride 104 mmol/L (98-107); Creatinine, Serum 2.31 mg/dL (0.70-1.30); EST Glomerular Filtration Rate 29 mL/min (>60); Est Glom Filt Rate - Afr Amer 35 mL/min (>60); Estimated Creatinine Clearance 20.71 ml/min; Glucose 161 mg/dL (74-106); Potassium 4.2 mmol/L (3.5-5.1); Sodium Level 139 mmol/L (136-145)
[2020-10-29] MEDS: 0.9% Normal Saline 1,000 ML 150 ML IV (12:18)
--- NOTE | 2020-10-29 12:32 | PCM.HP.STD ---
Problem List (1) Orthostatic hypotension Status: Acute (2) Syncope Status: Acute (3) (HFpEF) heart failure with preserved ejection fraction Status: Chronic Qualifiers: Heart failure chronicity: acute Qualified Code(s): I50.31 - Acute diastolic (congestive) heart failure (4) Pleural effusion Status: Acute (5) History of right and left heart catheterization Status: Chronic Comment: Right Heart pressures - elevated; Pulmonary Hypertension Moderate LEFT MAIN: Angiographically normal ; LEFT ANTERIOR DESCENDING ARTERY: MID LAD: Mild luminal irregularities less than 30% ;CIRCUMFLEX ARTERY: Mild luminal irregularities less than 30% RIGHT CORONARY ARTERY: Mild luminal irregularities less than 30%; Aortic Valve Stenosis - moderate per R&LHC done 09/25/19 per [facility] @ [facility]: medical management recommended. (6) BRBPR (bright red blood per rectum) Status: Acute (7) Shortness of breath Status: Inactive (8) Placement of right tunnelled pleurex catheter Status: Chronic Comment: for recurrent right pleural effusion per Dr. Tyrell Santizo on 02/21/2019 (9) Recurrent right pleural effusion Status: Acute Comment: Placement of right tunneled pleural catheter (pleurex) with ultrasound guidance per Dr. Santizo 02/15/2019 (10) Community acquired bacterial pneumonia Status: Acute (11) Atrial fibrillation Status: Chronic Qualifiers: Atrial fibrillation type: paroxysmal Qualified Code(s): I48.0 - Paroxysmal atrial fibrillation (12) Valvular heart disease Status: Chronic (13) Pleural effusion Status: Acute (14) Renal insufficiency Status: Acute (15) Pleural effusion Status: Chronic (16) (HFpEF) heart failure with preserved ejection fraction Status: Chronic Qualifiers: Heart failure chronicity: acute Qualified Code(s): I50.31 - Acute diastolic (congestive) heart failure (17) Nonrheumatic mitral (valve) insufficiency Status: Chronic (18) Non-rheumatic tricuspid valve insufficiency Status: Chronic (19) Non-rheumatic aortic stenosis Status: Chronic (20) History of left heart catheterization Status: Chronic Comment: 05/02/[address] [facility]; 01/29/[address] Porter [address] 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 (25) Hypertension Status: Chronic Qualifiers: Hypertension type: essential hypertension Qualified Code(s): I10 - Essential (primary) hypertension (26) Chronic renal failure, stage 3 (moderate) Status: Chronic (27) History of anxiety disorder Status: Chronic (28) Generalized osteoarthritis Status: Chronic (29) History of gout Status: Chronic (30) Mild dementia Status: Chronic (31) Rheumatoid arthritis Status: Chronic (32) Diabetes mellitus, type II Status: Chronic (33) Generalized weakness Status: Chronic (34) History of prostate cancer Status: Chronic Comment: Status post radiotherapy (35) Anemia of chronic disease Status: Chronic Comment: due to CRF and RA (36) PAF (paroxysmal atrial fibrillation) Status: Chronic History of Present Illness Date of Admission: 10/29/20 Chief Complaint: Syncope The patient is a 84 year old M with multiple comorbidities including chronic A. fib, HFpEF, left pleural effusion and chronic heart failure was brought in to ER by EMS for syncope and generalized weakness. Patient is DNR CC with home hospice care which revoked before coming to the hospital. As per , he had his breakfast and was sitting in the couch. Then he walked to the bathroom for bowel movement and felt dizzy and lightheaded. While sitting on the toilet, he passed out and his held him. He did not hit her head. Duration of syncope probably few minutes as per . Patient was still dizzy, lethargic, drowsy and his head was dropping patient she tried to move her out of toilet seat. Then she laid on the floor and: None patient brought to ER. In ED, triage blood pressure showed supine 166/76, heart rate 63 which dropped to 105/53, heart rate 70 on standing. Patient started on IV fluid normal saline 150 mill per hour. As per patient, he feels back to normal but patient looks slow to respond and weak. Twelve-lead EKG done in the ER shows sinus rhythm at 64 beats per 1. QTC 470 ms. Significant abnormal in basic labs done in ER, platelet count 126,000, BUN/creatinine 45/2.31, anion gap 4 and glucose 161. UA pending. Patient denies burning micturition. As per his , he had a loose bowel movement in the morning today but does not have diarrhea. Past Medical History Past Medical History (Chronic Problems): Chronic Problems (Last Reviewed 03/26/20 @ 08:44 by Janina Nunez) (HFpEF) heart failure with preserved ejection fraction (Chronic) History of right and left heart catheterization (Chronic 09/25/19) Right Heart pressures - elevated; Pulmonary Hypertension Moderate LEFT MAIN: Angiographically normal ; LEFT ANTERIOR DESCENDING ARTERY: MID LAD: Mild luminal irregularities less than 30% ;CIRCUMFLEX ARTERY: Mild luminal irregularities less than 30% RIGHT CORONARY ARTERY: Mild luminal irregularities less than 30%; Aortic Valve Stenosis - moderate per R&LHC done 09/25/19 per [facility] @ [facility]: medical management recommended. Placement of right tunnelled pleurex catheter (Chronic 02/21/19) for recurrent right pleural effusion per Dr. Tyrell Santizo on 02/21/2019 Atrial fibrillation (Chronic) Valvular heart disease (Chronic) Pleural effusion (Chronic) (HFpEF) heart failure with preserved ejection fraction (Chronic) Nonrheumatic mitral (valve) insufficiency (Chronic) Non-rheumatic tricuspid valve insufficiency (Chronic) Non-rheumatic aortic stenosis (Chronic) History of left heart catheterization (Chronic ~01/2014) 05/02/[address] [facility]; 01/29/[address] Porter [address] [facility]: coronaries angiographically normal, pulmonary htn by RV eval, EF at that time was 45-50% Chronic diastolic (congestive) heart failure (Chronic) History of pleural effusion (Chronic) 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 (Chronic) group home current use of 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) Hypertension (Chronic) Chronic renal failure, stage 3 (moderate) (Chronic) History of anxiety disorder (Chronic) Generalized osteoarthritis (Chronic) History of gout (Chronic) Mild dementia (Chronic) Rheumatoid arthritis (Chronic) Diabetes mellitus, type II (Chronic) Generalized weakness (Chronic) History of prostate cancer (Chronic) Status post radiotherapy Anemia of chronic disease (Chronic) due to CRF and RA PAF (paroxysmal atrial fibrillation) (Chronic) Medical History: Medical History (Last Reviewed 03/26/20 @ 08:44 by Janina Nunez) Nonrheumatic mitral (valve) insufficiency (Chronic) I34.0 Non-rheumatic tricuspid valve insufficiency (Chronic) I36.1 Non-rheumatic aortic stenosis (Chronic) I35.0 Chronic diastolic (congestive) heart failure (Chronic) I50.32 History of pleural effusion (Chronic) Z87.09 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 (Chronic) group home current use of 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) Z79.01 Hypertension (Chronic) I10 Chronic renal failure, stage 3 (moderate) (Chronic) N18.3 History of anxiety disorder (Chronic) Z86.59 Generalized osteoarthritis (Chronic) M15.9 History of gout (Chronic) Z87.39 Mild dementia (Chronic) F03.90 Rheumatoid arthritis (Chronic) M06.9 Diabetes mellitus, type II (Chronic) E11.9 History of prostate cancer (Chronic) Status post radiotherapy Anemia of chronic disease (Chronic) D63.8 due to CRF and RA PAF (paroxysmal atrial fibrillation) (Chronic) I48.0 Syncope and collapse R55 Allergies cimetidine HCl [From Tagamet] Allergy (Verified 10/29/20 11:14) Rash ciprofloxacin [From Cipro] Allergy (Verified 10/29/20 11:14) Rash amoxicillin trihydrate [From Augmentin] Adverse Reaction (Verified 10/29/20 11:14) Abd cramps/diarrhea cefdinir [From Omnicef] Adverse Reaction (Verified 10/29/20 11:14) Diarrhea indomethacin sodium [From Indocin] Adverse Reaction (Verified 10/29/20 11:14) Nausea memantine HCl [From Namenda] Adverse Reaction (Verified 10/29/20 11:14) dizziness potassium clavulanate [From Augmentin] Adverse Reaction (Verified 10/29/20 11:14) Abd cramps/diarrhea sitagliptin phosphate [From Januvia] Adverse Reaction (Verified 10/29/20 11:14) Nausea Home Medications: Ambulatory Orders Medication Instructions Recorded Loratadine 10 mg PO DINNER PRN 03/15/17 tamsulosin 0.4 mg capsule 0.4 mg PO DINNER 12/20/18 Finasteride [Proscar] 5 mg PO DINNER 04/17/19 furosemide 20 mg tablet 20 mg PO DAILY tab 11/30/19 ondansetron HCl 4 mg tablet 4 mg PO DAILY 03/26/20 quetiapine 25 mg tablet 25 mg PO DAILY 03/26/20 buspirone 10 mg tablet 10 mg PO BID 07/22/20 lorazepam 0.5 mg tablet 0.5 mg PO DAILY PRN 07/22/20 oxycodone 5 mg capsule 2.5 mg PO BID PRN 07/22/20 trazodone 50 mg tablet 50 mg PO DAILY 07/22/20 Febuxostat [Uloric] 40 mg PO DINNER 10/29/20 Pantoprazole Sodium [Protonix] 40 mg PO DAILY 10/29/20 Quetiapine Fumarate [Seroquel] 25 mg PO QHS 10/29/20 Surgical History: Surgical History (Last Reviewed 03/26/20 @ 08:44 by Janina Nunez) History of right and left heart catheterization (Chronic) Onset Date: 09/25/19 Z98.890 Right Heart pressures - elevated; Pulmonary Hypertension Moderate LEFT MAIN: Angiographically normal ; LEFT ANTERIOR DESCENDING ARTERY: MID LAD: Mild luminal irregularities less than 30% ;CIRCUMFLEX ARTERY: Mild luminal irregularities less than 30% RIGHT CORONARY ARTERY: Mild luminal irregularities less than 30%; Aortic Valve Stenosis - moderate per R&LHC done 09/25/19 per [facility] @ [facility]: medical management recommended. Recurrent right pleural effusion (Acute) Onset Date: 02/15/19 J90 Placement of right tunneled pleural catheter (pleurex) with ultrasound guidance per Dr. Santizo 02/15/2019 History of left heart catheterization (Chronic) Onset Date: ~01/2014 Z98.890 05/02/[address] [facility]; 01/29/[address] [facility]: coronaries angiographically normal, pulmonary htn by RV eval, EF at that time was 45-50% History of bilateral inguinal hernia repair Z98.890, Z87.19 History of cholecystectomy Onset Date: ~1989 Z90.49 History of left knee replacement Z96.652 History of right shoulder replacement Z96.611 History of tonsillectomy Z90.89 Surgical History: cholecystectomy, total knee arthroplasty Psychiatric History: No pertinent psych hx Smoking Status: Never smoker - *Family History Maternal Family History: Family History (Last Reviewed 03/26/20 @ 08:44 by Janina Nunez) Father CAD (coronary artery disease) Myocardial infarction Brother Diabetes History Items: No pertinent history Paternal Family History: Family History (Last Reviewed 03/26/20 @ 08:44 by Janina Nunez) Father CAD (coronary artery disease) Myocardial infarction Brother Diabetes History Items: No pertinent history Review of Systems Constitutional: Reports: Malaise, Weakness. Denies: Chills, Fever, Weight Change HEENT: Denies: Head Aches, Sinus Congestion, Sinus Drainage Cardiovascular: Reports: Light Headedness, Syncope. Denies: Chest Pain, Palpitations Respiratory: Reports: Shortness of breath upon exertion - Chronic. Denies: Cough, Shortness of breath at rest, Sputum production Gastrointestinal: Denies: Abdominal Pain, Nausea, Vomiting Genitourinary: Denies: Dysuria Musculoskeletal: Reports: Joint Pain, Joint stiffness. Denies: Joint Tenderness Skin: Denies: Rash, Wounds Neurological: Reports: Balance problems. Denies: Focal weakness, Numbness, Tingling Psychiatric: Denies: Anxiety, Depression, Homicidal Ideations, Suicidal Ideations Hematologic/ Lymphatic: Denies: Easy Bruising, Easy Bleeding VTE Information - Inpt Only VTE Present on Admission: No VTE Mechan Device Prophylaxis: None VTE Pharm Prophylaxis ordered?: Yes Patient Problems: Active and Suspected Problems (Last Reviewed 03/26/20 @ 08:44 by Janina Nunez) Pleural effusion (Acute) Orthostatic hypotension (Acute) Syncope (Acute) BRBPR (bright red blood per rectum) (Acute) Recurrent right pleural effusion (Acute 02/15/19) Placement of right tunneled pleural catheter (pleurex) with ultrasound guidance per Dr. Santizo 02/15/2019 Community acquired bacterial pneumonia (Acute) Pleural effusion (Acute) Renal insufficiency (Acute) Objective: Physical exam General: Awake, oriented x3, Cooperative. Slow to respond HEENT: Atraumatic, PERRLA, EOMI, Normocephalic. Bilateral hard of hearing Oral: No Gingival or Mucosal Lesions/ Ulcerations. Oral mucosa dry Neck: Supple, No JVD, Negative Carotid Bruits Lungs: Air entry diminished in bilateral lung bases, more on left side. 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 Abdomen: Bowel Sounds Present, Soft, Non Tender, Non-Distended : No renal angle tenderness. No suprapubic tenderness. Extremities: No edema, Capillary Refill Less than 3 Seconds Skin: No rashes, No breakdown Musculoskeletal: No Tenderness to Palpation of Joints or Extremities. ROM restricted Neurological: Cranial nerves II-XII grossly intact, Deep Tendon Reflexes 2+/4 and Symmetrical, Neuro grossly intact Psych/Mental Status: Mild cognitive deficit. - Physical Exam Vitals/I&O's: Vital Signs Temp Pulse Resp BP Pulse Ox 97.5 F L 63 10 L 166/76 H 100 10/29/20 11:12 10/29/20 12:18 10/29/20 11:12 10/29/20 12:18 10/29/20 11:12 Weight: 177 lb 7.554 oz Body Mass Index (BMI) 29.5 Finger Stick Blood Glucose 128 Laboratory Results 10/29/20 11:35: WBC 5.4, RBC 3.97 L, Hgb 13.0, Hct 38.9 L, MCV 98.0 H, MCH 32.7 H, MCHC 33.4, RDW Std Deviation 43.4, RDW Coeff of Juan Carlos 11.9, Plt Count 126 L, MPV 9.6, Immature Gran % (Auto) 1.500 H, Neut % (Auto) 77.6 H, Lymph % (Auto) 10.0 L, [place] % (Auto) 7.8, Eos % (Auto) 2.2, Baso % (Auto) 0.9, Absolute Neuts (auto) 4.2, Absolute Lymphs (auto) 0.54 L, Nucleated RBC % 0, Differential Comment COMMENT 10/29/20 11:35: Sodium 139, Potassium 4.2, Chloride 104, Carbon Dioxide 31.0, Anion Gap 4 L, BUN 45 H, Creatinine 2.31 H, Estim Creat Clear Calc 20.71, Est GFR (MDRD) Af Amer 35 L, Est GFR (MDRD) Non-Af 29 L, BUN/Creatinine Ratio 19.5, Glucose 161 H, Calcium 9.1, Troponin I 0.043 Current Medications Sodium Chloride () 1,000 mls @ 150 mls/hr IV .Q6H40M [facility] Last Admin: 10/29/20 12:18 Dose: 150 mls/hr Documented by: Assessment/Plan All Active Problems (Last Reviewed 03/26/20 @ 08:44 by Janina Nunez) Pleural effusion (Acute) Orthostatic hypotension (Acute) Syncope (Acute) BRBPR (bright red blood per rectum) (Acute) Recurrent right pleural effusion (Acute 02/15/19) Community acquired bacterial pneumonia (Acute) Pleural effusion (Acute) Renal insufficiency (Acute) Chest pain (Resolved) Dehydration (Resolved) Hypomagnesemia (Resolved) The patient is a 84 year old M with multiple comorbidities including chronic A. fib, HFpEF, left pleural effusion and chronic heart failure was brought in to ER by EMS for syncope and generalized weakness. Twelve-lead EKG done in the ER shows sinus rhythm at 64 beats per 1. QTC 470 ms. 1. Syncope due to orthostatic hypotension/medication side effect: Patient is dehydrated. In ED, triage blood pressure showed supine 166/76, heart rate 63 which dropped to 105/53, heart rate 70 on standing. Patient had IV fluid normal saline 150 mill per hour in ED. Patient is admitted in PCU. Started on IV fluid normal saline at 75 mL/h with history of heart failure, left pleural effusion and collapse in the past. Orthostatic blood pressure about 2 PM later and tomorrow a.m. Monitor intake and output to guide IV fluid. Hold Lasix, trazodone, lorazepam, loratadine. 2. Heart conditions: Coronary artery disease, chronic HFpEF with biventricular failure, severe aortic stenosis, moderate to severe pulmonary hypertension, history of bilateral pleural effusion status post thoracocentesis,paroxysmal A. fib and hypertension: Patient was admitted last time in September 2019 for acute on chronic HFpEF and had pleural effusion. Patient had thoracocentesis in January and September 2019 on the left side. After that patient and his instructed DNRCC hospice care. Was made DNR CC hospice care. Patient had heart cath in August 2019 reported as below. Interpretation Summary The estimated ejection fraction is 65 %. Stage 1 diastolic dysfunction. Moderately dilated right ventricle. The left atrium is moderately enlarged. Mild (1+) mitral valve insufficiency. Mild (1+) tricuspid valve insufficiency. Right ventricular systolic pressure estimated to be 52 mmHg. Moderate to severe pulmonary hypertension. Immobile non coronary cusp of aortic valve. Severe aortic stenosis. Peak aortic valve gradient 62 mmHg. Mean aortic valve gradient 40 mmHg. Calculated aortic valve area (continuity equation) is 0.9 cm2. Small pericardial effusion. Circumferential effusion. There are no echocardiographic indications of cardiac tamponade. Compared to echo report dated 12/20/2018, LV Function has remained the same, but aortic stenosis is now severe and RVSP has worsened from 39 to 58 mm Hg. 3. Patient has CKD stage IV: BUN/creatinine is elevated at 45/2.31. BUN is elevated 45 although his creatinine is at baseline suggestive of intravascular volume contraction. Monitor BMP. 4. Prostate cancer status post radiotherapy: Continue Flomax and finasteride. UA is negative except specific gravity protein 30. Other comorbidities include generalized osteoarthritis, mild dementia, anemia of chronic disease: Currently hemoglobin is 13. Platelet count is 126,000. VTE prophylaxis: On Lovenox 30 mg subcu daily adjusted to creatinine clearance. Living will/advanced directive/end of life care: Patient does have living will or advanced directive. At home patient is DNR CC with hospice care which was removed by before admission. After discussion of procedures involved with full code, DNR CC arrest and DNR CC, the patient and his opted for DNR-CC Arrest with no intubation Patient does not want artificial life support including intubation, tube feed, ventilator and/chest compression, central venous catheter, vasopressor and DC shock if needed Total time spent in [id number] encounter in discussion of advanced directive 16 minutes. Clinical Impression(s) from Imaging Studies Chest X-Ray 10/29/20 11:35 IMPRESSION: Small left pleural effusion with left basilar atelectasis and/or infiltrate. OBSV E&M: 43028 Initial observation care L3 Procedures: 87667 Advncd Care Plan 30 Min
[2020-10-29 12:44] LABS: Bacteria 0 SEEN /hpf (None Seen); Mucous, Urine 0 SEEN /hpf (<or=2+)
[2020-10-29 12:57] LABS: Color, Urine Yellow (Yellow); Glucose, Dipstick Normal (Normal); Ketone-Dipstick Negative (Negative); Leukocyte Esterase-Dipstick Negative /ul (Negative); Nitrite-Dipstick Negative (Negative); Occult Blood-Urine Negative /ul (Negative); Protein-Dipstick 30 mg/dl (Negative); Specific Gravity, Urine 1.015 (1.002-1.030); Urine Bilirubin Dipstick Negative (Negative); Urine Clarity Sl. Cloudy (Clear); Urine Urobilinogen Normal (Normal)
[2020-10-29 13:19] LABS: Hyaline Cast 0-5 SEEN /lpf (0-5); Red Blood Cells-Urine 0-5 SEEN /hpf (0-5); Squamous Epithelial Cells - UA 0-5 SEEN /hpf (0-5); White Blood Cells 0-5 SEEN /hpf (0-5)
[2020-10-29 15:01] LABS: Magnesium 2.1 mg/dL (1.6-2.6)
[2020-10-29] MEDS: 0.9% Normal Saline 1,000 ML 75 ML IV (15:10)
[2020-10-29] MEDS: Enoxaparin 30 MG/0.3 ML Syringe SC (15:13)
[2020-10-30 02:41] VITALS: BP 168/59; PULSE 71; RESP 18; TEMP 37; O2SAT 96
[2020-10-30 03:00] VITALS: PULSE 66
[2020-10-30] MEDS: 0.9% Normal Saline 1,000 ML 75 ML IV (04:10)
[2020-10-30] MEDS: guaiFENesin 10 ML UDC (200MG/10ML) 20 ML PO (04:52)
[2020-10-30 05:40] LABS: Absolute Lymphocyte Count 0.61 X10^3/uL (0.83-4.51); Absolute Neutrophil Count 5.1 X10^3/uL (2.0-7.7); Basophil# 0.06 X10^3/uL; Basophil% 0.9 % (0-1); Eosinophil# 0.12 X10^3/uL; Eosinophils% 1.9 % (0-5); Hematocrit 38.4 % (40-54); Hemoglobin 12.9 g/dL (13.0-16.5); Lymphocyte # 0.61 X10^3/ul (4.0); Lymphocyte % 9.5 % (19-41); Mean Corp Hgb Conc 33.6 g/dL (32-36); Mean Corpuscular Hgb 32.9 pg (27.0-32.0); Mean Platelet Vol. 9.8 fl (6.2-12.0); Monocyte# 0.43 X10^3/uL; Monocyte% 6.7 % (0-10); NRBC Flagged by Analyzer 0 % (0-5); Neutrophil % 79.9 % (47-70); Platelet Count 129 K/mm3 (150-450); RBC Distribution Width CV 12.1 % (11.6-14.6); RBC Distribution Width SD 43.7 fl (35.1-43.9); Red Blood Count 3.92 M/mm3 (4.6-6.2); White Blood Count 6.4 K/mm3 (4.4-11.0)
[2020-10-30 05:53] VITALS: BP 163/77; BP 171/57; BP 180/85; PULSE 65; PULSE 73; PULSE 83
[2020-10-30 06:05] LABS: Anion Gap 5 (5-15); BUN 39 mg/dL (7-18); Calcium,Total 8.8 mg/dL (8.5-10.1); Chloride 108 mmol/L (98-107); Creatinine, Serum 1.95 mg/dL (0.70-1.30); EST Glomerular Filtration Rate 35 mL/min (>60); Est Glom Filt Rate - Afr Amer 42 mL/min (>60); Estimated Creatinine Clearance 24.53 ml/min; Glucose 148 mg/dL (74-106); Potassium 4.5 mmol/L (3.5-5.1); Sodium Level 139 mmol/L (136-145)
[2020-10-30 06:47] VITALS: PULSE 89
[2020-10-30 08:39] VITALS: BP 163/87; PULSE 78; RESP 18; TEMP 36.3; O2SAT 97
[2020-10-30] MEDS: Enoxaparin 30 MG/0.3 ML Syringe SC (08:51)
--- NOTE | 2020-10-30 11:20 | DS.PCM_ITS ---
Discharge Date and Diagnosis - Problem List Patient Problems: Active and Suspected Problems (Last Reviewed 03/26/20 @ 08:44 by Janina Nunez) Pleural effusion (Acute) Orthostatic hypotension (Acute) Syncope (Acute) BRBPR (bright red blood per rectum) (Acute) Recurrent right pleural effusion (Acute 02/15/19) Placement of right tunneled pleural catheter (pleurex) with ultrasound guidance per Dr. Santizo 02/15/2019 Community acquired bacterial pneumonia (Acute) Pleural effusion (Acute) Renal insufficiency (Acute) Date of Admission: 10/29/20 Date of Discharge: 10/30/20 - Primary Discharge Diagnosis Acute Problems: Active Problems (Last Reviewed 03/26/20 @ 08:44 by Janina Nunez) Pleural effusion (Acute) Orthostatic hypotension (Acute) Syncope (Acute) BRBPR (bright red blood per rectum) (Acute) Recurrent right pleural effusion (Acute 02/15/19) Placement of right tunneled pleural catheter (pleurex) with ultrasound guidance per Dr. Santizo 02/15/2019 Community acquired bacterial pneumonia (Acute) Pleural effusion (Acute) Renal insufficiency (Acute) - Secondary Discharge Diagnosis Chronic Problems: Chronic Problems (Last Reviewed 03/26/20 @ 08:44 by Janina Nunez) (HFpEF) heart failure with preserved ejection fraction (Chronic) History of right and left heart catheterization (Chronic 09/25/19) Right Heart pressures - elevated; Pulmonary Hypertension Moderate LEFT MAIN: Angiographically normal ; LEFT ANTERIOR DESCENDING ARTERY: MID LAD: Mild luminal irregularities less than 30% ;CIRCUMFLEX ARTERY: Mild luminal irregularities less than 30% RIGHT CORONARY ARTERY: Mild luminal irregularities less than 30%; Aortic Valve Stenosis - moderate per R&LHC done 09/25/19 per [facility] @ [facility]: medical management recommended. Placement of right tunnelled pleurex catheter (Chronic 02/21/19) for recurrent right pleural effusion per Dr. Tyrell Santizo on 02/21/2019 Atrial fibrillation (Chronic) Valvular heart disease (Chronic) Pleural effusion (Chronic) (HFpEF) heart failure with preserved ejection fraction (Chronic) Nonrheumatic mitral (valve) insufficiency (Chronic) Non-rheumatic tricuspid valve insufficiency (Chronic) Non-rheumatic aortic stenosis (Chronic) History of left heart catheterization (Chronic ~01/2014) 05/02/[address] Robertson [facility]; 01/29/[address] 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) Hypertension (Chronic) Chronic renal failure, stage 3 (moderate) (Chronic) History of anxiety disorder (Chronic) Generalized osteoarthritis (Chronic) History of gout (Chronic) Mild dementia (Chronic) Rheumatoid arthritis (Chronic) Diabetes mellitus, type II (Chronic) Generalized weakness (Chronic) History of prostate cancer (Chronic) Status post radiotherapy Anemia of chronic disease (Chronic) due to CRF and RA PAF (paroxysmal atrial fibrillation) (Chronic) Hospital Course and Treatment Operations: None Summary of Care Provided: [] The patient is a 84 year old M with multiple comorbidities including chronic A. fib, HFpEF, left pleural effusion and chronic heart failure was brought in to ER by EMS for syncope and generalized weakness.Twelve-lead EKG done in the ER shows sinus rhythm at 64 beats per 1. QTC 470 ms. Patient blood pressure in the ED was consistent with orthostatic hypotension therefore diagnosis syncope due to orthostatic hypotension/medication side effect. Patient was admitted in PCU. Was treated with IV fluid normal saline. Patient had symptomatic resolution of dizziness and lightheadedness. Repeat blood pressure still shows drop in blood pressure on standing but did not meet orthostatic hypotension definition and patient was advised to wear thigh-high IRVING hose, take prescribed by PCP. I called , Mrs. 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 Patient has Coronary artery disease, chronic HFpEF with biventricular failure, severe aortic stenosis, moderate to severe pulmonary hypertension, history of bilateral pleural effusion status post thoracocentesis,paroxysmal A. fib and hypertension: Patient had last 2D echo in August 2019 with EF 65% with moderately dilated RV. Other comorbidities as listed in problem list include CKD stage IV, prostate cancer status post radiotherapy, and mild dementia, generalized osteoarthritis, anemia of chronic disease. Please see H&P for the evaluation Patient is discharged home with home hospice care. With current Covid condit ion, hospice nurse visits once a week. Discharge medication reconciliation done. Discharge follow-up instructions completed. Discharge process discussed with the patient and all questions were answered to patient's satisfaction. Total time spent, exact 35 minutes on discharge meds reconciliation, examination, coordination of care with nurses and ancillary staff, review of imaging and blood test and discussion with the patient on follow-up instructions Patient Problems: Active and Suspected Problems (Last Reviewed 03/26/20 @ 08:44 by Janina Nunez) Pleural effusion (Acute) Orthostatic hypotension (Acute) Syncope (Acute) BRBPR (bright red blood per rectum) (Acute) Recurrent right pleural effusion (Acute 02/15/19) Placement of right tunneled pleural catheter (pleurex) with ultrasound guidance per Dr. Santizo 02/15/2019 Community acquired bacterial pneumonia (Acute) Pleural effusion (Acute) Renal insufficiency (Acute) Objective: Seen and examined. Patient had resolution of dizziness. Repeat orthostatic blood pressure showed drop in blood pressure 171 systolic to 163 and heart rate went up from 65-83 although did not reach drop more than 20 or heart rate more than 30 Physical exam General: Awake, oriented x3, Cooperative. Slow to respond HEENT: Atraumatic, PERRLA, EOMI, Normocephalic. Bilateral hard of hearing Oral: No Gingival or Mucosal Lesions/ Ulcerations. Oral mucosa is moist. Neck: Supple, No JVD, Negative Carotid Bruits Lungs: Air entry diminished in bilateral lung bases, more on left side. No crepitation/rhonchi Cardiovascular: behavior interventionist PVCs, sinus rhythm. Normal S1, Normal S2, ejection systolic murmur over right second ICS and holosystolic murmur over LLSB and cardiac apex. Abdomen: Bowel Sounds Present, Soft, Non Tender, Non-Distended : No renal angle tenderness. No suprapubic tenderness. Extremities: No edema, Capillary Refill Less than 3 Seconds Skin: No rashes, No breakdown Musculoskeletal: No Tenderness to Palpation of Joints or Extremities. ROM restricted Neurological: Cranial nerves II-XII grossly intact, Deep Tendon Reflexes 2+/4 and Symmetrical, Neuro grossly intact Psych/Mental Status: Mild cognitive deficit. - Physical Exam Vitals/I&O's: Vital Signs Temp Pulse Resp BP Pulse Ox 97.3 F L 78 18 163/87 H 97 10/30/20 08:39 10/30/20 08:39 10/30/20 08:39 10/30/20 08:39 10/30/20 08:39 Oxygen Flow Rate (L/min) 2 Oxygen Delivery Method Nasal Cannula Weight: 173 lb 11.588 oz Body Mass Index (BMI) 28.9 Finger Stick Blood Glucose 128 Orthostatic Vital Signs Start: 10/29/20 14:52 Freq: q24h Status: Active Protocol: Activity Type Activity Date Activity User E-Sign Co-Sign Detail Recorded Client Recorded Date Recorded By Document 10/30/20 05:53 BLB [id number] 10/30/20 05:54 BLB 10/30/20 05:53 Orthostatic Vitals Standing -Blood Pressure (90/60-120/80) 163/77 H -Extremity Use Left Arm -Pulse Rate (60-100) 83 Sitting -Blood Pressure (90/60-120/80) 180/85 H -Extremity Use Left Arm -Pulse Rate (60-100) 73 Lying -Blood Pressure (90/60-120/80) 171/57 H -Extremity Use Left Arm -Pulse Rate (60-100) 65 Intake and Output for Last 24 Hours 10/28/20 10/29/20 10/30/20 23:59 23:59 23:59 Intake Total 742.5 / 742.5 970 / 970 Output Total 200 / 200 Balance 742.5 / 742.5 770 / 770 Laboratory Results 10/29/20 11:35: WBC 5.4, RBC 3.97 L, Hgb 13.0, Hct 38.9 L, MCV 98.0 H, MCH 32.7 H, MCHC 33.4, RDW Std Deviation 43.4, RDW Coeff of Juan Carlos 11.9, Plt Count 126 L, MPV 9.6, Immature Gran % (Auto) 1.500 H, Neut % (Auto) 77.6 H, Lymph % (Auto) 10.0 L, [place] % (Auto) 7.8, Eos % (Auto) 2.2, Baso % (Auto) 0.9, Absolute Neuts (auto) 4.2, Absolute Lymphs (auto) 0.54 L, Nucleated RBC % 0, Differential Comment COMMENT 10/29/20 11:35: Sodium 139, Potassium 4.2, Chloride 104, Carbon Dioxide 31.0, Anion Gap 4 L, BUN 45 H, Creatinine 2.31 H, Estim Creat Clear Calc 20.71, Est GFR (MDRD) Af Amer 35 L, Est GFR (MDRD) Non-Af 29 L, BUN/Creatinine Ratio 19.5, Glucose 161 H, Calcium 9.1, Troponin I 0.043 10/29/20 11:35: Magnesium 2.1 10/29/20 12:35: Urine Color Yellow, Urine Clarity Sl. Cloudy, Urine pH 5.0, Ur Specific Purmela 1.015, Urine Protein 30 H, Urine Glucose (UA) Normal, Urine Ketones Negative, Urine Occult Blood Negative, Urine Nitrite Negative, Urine Bilirubin Negative, Urine Urobilinogen Normal, Ur Leukocyte Esterase Negative, Urine RBC 0-5 SEEN, Urine WBC 0-5 SEEN, Ur Squamous Epith Cells 0-5 SEEN, Urine Bacteria 0 SEEN, Hyaline Casts 0-5 SEEN, Urine Mucus 0 SEEN 10/30/20 05:20: WBC 6.4, RBC 3.92 L, Hgb 12.9 L, Hct 38.4 L, MCV 98.0 H, MCH 32.9 H, MCHC 33.6, RDW Std Deviation 43.7, RDW Coeff of Juan Carlos 12.1, Plt Count 129 L, MPV 9.8, Immature Gran % (Auto) 1.100 H, Neut % (Auto) 79.9 H, Lymph % (Auto) 9.5 L, [place] % (Auto) 6.7, Eos % (Auto) 1.9, Baso % (Auto) 0.9, Absolute Neuts (auto) 5.1, Absolute Lymphs (auto) 0.61 L, Nucleated RBC % 0 10/30/20 05:20: Sodium 139, Potassium 4.5, Chloride 108 H, Carbon Dioxide 26.0, Anion Gap 5, BUN 39 H, Creatinine 1.95 H, Estim Creat Clear Calc 24.53, Est GFR (MDRD) Af Amer 42 L, Est GFR (MDRD) Non-Af 35 L, BUN/Creatinine Ratio 20.0, Glucose 148 H, Calcium 8.8 Current Medications Acetaminophen (Acetaminophen 325 Mg Tablet) 650 mg PO Q6H PRN PRN PRN Reason: Pain Score 1-10/Temp > 100.7 F Buspirone HCl (Buspirone 5 Mg Tablet) 10 mg PO BID DERICK Enoxaparin Sodium (Enoxaparin 30 Mg/0.3 Ml Syringe) 30 mg SC DAILY [facility] Last Admin: 10/30/20 08:51 Dose: 30 mg Documented by: Febuxostat (Febuxostat 40 Mg Tablet) 40 mg PO DINNER [facility] Finasteride (Finasteride 5 Mg Tablet) 5 mg PO DINNER [facility] Furosemide (Furosemide 20 Mg Tablet) 20 mg PO DAILY [facility] Guaifenesin (Guaifenesin 10 Ml Udc (200mg/10ml)) 20 ml PO Q4H PRN PRN PRN Reason: COUGH Last Admin: 10/30/20 04:52 Dose: 20 ml Documented by: Sodium Chloride () 250 mls @ 15 mls/hr IV .[id number] PRN PRN Reason: Saline Flush Sodium Chloride () 250 mls @ 15 mls/hr IV .[id number] PRN PRN Reason: Additional IVPB Infusion Loratadine (Loratadine 10 Mg Tablet) 10 mg PO DINNER PRN PRN Reason: ALLERGIES Lorazepam (Lorazepam 0.5 Mg Tablet) 0.5 mg PO BID [facility] Morphine Sulfate (Morphine 2 Mg/Ml Syringe) 2 mg IV Q3H PRN PRN PRN Reason: Pain Score 6-10 Multivitamins ([facility]it[facility],Therapeutic Tablet) [facility] Nitroglycerin (Nitroglycerin (Inpatient Use) 0.4 Mg Tab.Subl) 0.4 mg SUBLINGUAL Q5M PRN PRN Reason: CARDIAC/CHEST PAIN Non-Formulary Medication (Ondansetron Hcl) 4 mg PO DAILY [facility] Oxycodone HCl (Oxycodone 5 Mg Tablet) 2.5 mg PO BID PRN PRN Reason: pain 4-5/10 Pantoprazole Sodium (Pantoprazole Sodium 40 Mg Tablet) 40 mg PO DAILY [facility] Prochlorperazine Edisylate (Prochlorperazine 10 Mg/2 Ml Vial) 5 mg IV Q4H PRN PRN PRN Reason: Breakthrough Nausea/Vomiting Quetiapine Fumarate (Quetiapine 25 Mg Tablet) 25 mg PO DAILY@1600 [facility] Quetiapine Fumarate (Quetiapine 25 Mg Tablet) 50 mg PO QHS [facility] Senna/Docusate Sodium (Senna/Docusate Sodium 1 Tablet) 2 tablet PO BID PRN PRN PRN Reason: Constipation Sodium Chloride (0.9% Saline Lock 10 Ml Syringe) 10 - 40 ml IV UD PRN PRN Reason: SALINE FLUSH Tamsulosin HCl (Tamsulosin Hcl 0.4 Mg Capsule) 0.4 mg PO DINNER DERICK Home Medications: Medications to take at Discharge Loratadine 10 mg PO DINNER PRN 03/15/17 tamsulosin 0.4 mg capsule 0.4 mg PO DINNER 12/20/18 Finasteride [Proscar] 5 mg PO DINNER 04/17/19 ondansetron HCl 4 mg tablet 4 mg PO DAILY 03/26/20 buspirone 10 mg tablet 10 mg PO BID 07/22/20 lorazepam 0.5 mg tablet 0.5 mg PO BID 07/22/20 oxycodone 5 mg capsule 2.5 mg PO BID PRN 07/22/20 Febuxostat [Uloric] 40 mg PO DINNER 10/29/20 Multivitamins,Therapeutic [Multivitamin] 1 tab PO DAILY 10/29/20 Pantoprazole Sodium [Protonix] 40 mg PO DAILY 10/29/20 Quetiapine Fumarate [Seroquel] 25 mg PO DAILY@1600 10/29/20 Quetiapine Fumarate [Seroquel] 50 mg PO QHS 10/29/20 Furosemide [Lasix] 20 mg PO DAILY #0 tab 10/30/20 Primary Care Physician: Bhargav Mcleod MD [Primary Care Provider] - Medical Necessity - Tobacco Use Smoking Status: Never smoker Meaningful Use Info Meaningful Use Diagnoses (Choose all that apply): None applicable OBSV E&M: 89030 Observation care discharge
--- NOTE | 2020-10-30 11:20 | PCM.DC ---
- Discharge Diagnoses Current Active Problems: Current Active and Chronic Problems (Last Reviewed 03/26/20 @ 08:44 by Janina Nunez) (HFpEF) heart failure with preserved ejection fraction (Chronic) Pleural effusion (Acute) Orthostatic hypotension (Acute) Syncope (Acute) History of right and left heart catheterization (Chronic 09/25/19) Right Heart pressures - elevated; Pulmonary Hypertension Moderate LEFT MAIN: Angiographically normal ; LEFT ANTERIOR DESCENDING ARTERY: MID LAD: Mild luminal irregularities less than 30% ;CIRCUMFLEX ARTERY: Mild luminal irregularities less than 30% RIGHT CORONARY ARTERY: Mild luminal irregularities less than 30%; Aortic Valve Stenosis - moderate per R&LHC done 09/25/19 per [facility] @ [facility]: medical management recommended. BRBPR (bright red blood per rectum) (Acute) Placement of right tunnelled pleurex catheter (Chronic 02/21/19) for recurrent right pleural effusion per Dr. Tyrell Santizo on 02/21/2019 Recurrent right pleural effusion (Acute 02/15/19) Placement of right tunneled pleural catheter (pleurex) with ultrasound guidance per Dr. Santizo 02/15/2019 Community acquired bacterial pneumonia (Acute) Atrial fibrillation (Chronic) Valvular heart disease (Chronic) Pleural effusion (Acute) Renal insufficiency (Acute) Pleural effusion (Chronic) (HFpEF) heart failure with preserved ejection fraction (Chronic) Nonrheumatic mitral (valve) insufficiency (Chronic) Non-rheumatic tricuspid valve insufficiency (Chronic) Non-rheumatic aortic stenosis (Chronic) History of left heart catheterization (Chronic ~01/2014) 05/02/[address] [facility]; 01/29/[address] Porter [address] 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) Hypertension (Chronic) Chronic renal failure, stage 3 (moderate) (Chronic) History of anxiety disorder (Chronic) Generalized osteoarthritis (Chronic) History of gout (Chronic) Mild dementia (Chronic) Rheumatoid arthritis (Chronic) Diabetes mellitus, type II (Chronic) Generalized weakness (Chronic) History of prostate cancer (Chronic) Status post radiotherapy Anemia of chronic disease (Chronic) due to CRF and RA PAF (paroxysmal atrial fibrillation) (Chronic) You will use the following diet at home:: Cardiac Your food should be the consistency of: Regular Discharge Activity: May Not Drive Weight Bearing Status: Weight bearing as tolerated Call your doctor if you observe: Fever of 101 or Higher, Coldness, Increased Pain, Numbness or Tingling, Change in Color, Inability to urinate, Inability to have a bowel movement, Shortness of breath, Dizziness, Fainting spells, Swelling in the ankles, Chest pain, Prolonged hiccoughing, Increased palpitations (irregular heartbeat), Calf discomfort, Uncontrolled pain Additional Instructions: Call the hospice service the patient is short of breath or in pain. Allergies/Adverse Reactions: Allergies cimetidine HCl [From Tagamet] Allergy (Verified 10/29/20 11:14) Rash ciprofloxacin [From Cipro] Allergy (Verified 10/29/20 11:14) Rash amoxicillin trihydrate [From Augmentin] Adverse Reaction (Verified 10/29/20 11:14) Abd cramps/diarrhea cefdinir [From Omnicef] Adverse Reaction (Verified 10/29/20 11:14) Diarrhea indomethacin sodium [From Indocin] Adverse Reaction (Verified 10/29/20 11:14) Nausea memantine HCl [From Namenda] Adverse Reaction (Verified 10/29/20 11:14) dizziness potassium clavulanate [From Augmentin] Adverse Reaction (Verified 10/29/20 11:14) Abd cramps/diarrhea sitagliptin phosphate [From Januvia] Adverse Reaction (Verified 10/29/20 11:14) Nausea Medications to take at Discharge Loratadine 10 mg PO DINNER PRN 03/15/17 tamsulosin 0.4 mg capsule 0.4 mg PO DINNER 12/20/18 Finasteride [Proscar] 5 mg PO DINNER 04/17/19 ondansetron HCl 4 mg tablet 4 mg PO DAILY 03/26/20 buspirone 10 mg tablet 10 mg PO BID 07/22/20 lorazepam 0.5 mg tablet 0.5 mg PO BID 07/22/20 oxycodone 5 mg capsule 2.5 mg PO BID PRN 07/22/20 Febuxostat [Uloric] 40 mg PO DINNER 10/29/20 Multivitamins,Therapeutic [Multivitamin] 1 tab PO DAILY 10/29/20 Pantoprazole Sodium [Protonix] 40 mg PO DAILY 10/29/20 Quetiapine Fumarate [Seroquel] 25 mg PO DAILY@1600 10/29/20 Quetiapine Fumarate [Seroquel] 50 mg PO QHS 10/29/20 Furosemide [Lasix] 20 mg PO DAILY #0 tab 10/30/20 Primary Care Physician: Bhargav Mcleod MD [Primary Care Provider] - Test Results: Test results from this visit will be discussed in further detail at your follow-up appointment, if applicable.
[2020-10-30] MEDS: Furosemide 20 MG Tablet PO (11:58)
[2020-10-30] MEDS: Pantoprazole Sodium 40 MG Tablet PO (11:58)
--- NOTE | 2020-10-30 12:08 | CASEMGMT ---
ABDIRAHMAN called patient's . Introduced self and role at [facility]. ABDIRAHMAN asked if she plans on patient returning home on Hospice. She confirmed this is the plan. ABDIRAHMAN told her the doctor is discharging him today. ABDIRAHMAN asked if she want the nurse to call her and she said she would. ABDIRAHMAN notified RN. ABDIRAHMAN called Hospice and spoke with Giovana. ABDIRAHMAN let her know patient is being discharged today and plans on resuming Hospice. ABDIRAHMAN faxed d/c instructions and H&P to Hospice. Camila JANG MSW
--- NOTE | 2020-10-30 12:20 | PHA.DC.MR ---
Pharmacy Service has performed discharge medication reconciliation for this patient. The patient's discharge medication list was reviewed for discrepancies and discrepancies were resolved. Home Medications Loratadine 10 mg PO DINNER PRN 03/15/17 tamsulosin 0.4 mg capsule 0.4 mg PO DINNER 12/20/18 Finasteride [Proscar] 5 mg PO DINNER 04/17/19 ondansetron HCl 4 mg tablet 4 mg PO DAILY 03/26/20 buspirone 10 mg tablet 10 mg PO BID 07/22/20 lorazepam 0.5 mg tablet 0.5 mg PO BID 07/22/20 oxycodone 5 mg capsule 2.5 mg PO BID PRN 07/22/20 Febuxostat [Uloric] 40 mg PO DINNER 10/29/20 Multivitamins,Therapeutic [Multivitamin] 1 tab PO DAILY 10/29/20 Pantoprazole Sodium [Protonix] 40 mg PO DAILY 10/29/20 Quetiapine Fumarate [Seroquel] 25 mg PO DAILY@1600 10/29/20 Quetiapine Fumarate [Seroquel] 50 mg PO QHS 10/29/20 Furosemide [Lasix] 20 mg PO DAILY #0 tab 10/30/20
[2020-10-30 12:29] VITALS: BP 160/85; PULSE 77; RESP 16; O2SAT 94
== END 2020-10-30 11:20 | disposition hospice, home (50) ==
LOC: ED 11:55 → PCU 14:39
PROVIDERS: Admitting Provider Internal Medicine; Emergency Provider Emergency Medicine; PCP Family Medicine; Visit Provider Internal Medicine
DX: I95.1 Orthostatic hypotension (principal); N18.4 Chronic kidney disease, stage 4 (severe); I50.33 Acute on chronic diastolic (congestive) heart failure; I48.0 Paroxysmal atrial fibrillation; F03.90 Unspecified dementia, unspecified severity, without behavioral disturbance, psychotic disturbance, mood disturbance, and anxiety; M06.9 Rheumatoid arthritis, unspecified; E11.22 Type 2 diabetes mellitus with diabetic chronic kidney disease; Z79.899 Other long term (current) drug therapy; I13.0 Hypertensive heart and chronic kidney disease with heart failure and stage 1 through stage 4 chronic kidney disease, or unspecified chronic kidney disease; I27.29 Other secondary pulmonary hypertension; F41.9 Anxiety disorder, unspecified; M15.9 Polyosteoarthritis, unspecified; I25.10 Atherosclerotic heart disease of native coronary artery without angina pectoris; D63.8 Anemia in other chronic diseases classified elsewhere
CPT/HCPCS: 71045; 80048; 81001; 83735; 84484; 85025; 87426; 93005; 96360; 96361; 96372; 99218; 99285; J7030; G0378